=== PATIENT | male | born 1955 | race Two or more races ===

== ENCOUNTER 2024-03-28 15:39 | Inpatient (IN) | payer OTHER, MEDICAID ==
[~2024-03-28] VITALS: Ht 170.2 cm; Wt 75.8 kg
[2024-03-28 17:42] VITALS: BP 111/68; PULSE 83; RESP 18; TEMP 98.1; O2SAT 96
[2024-03-28] MEDS ORDERED: DEXTROSE (50%) 50ML SYRG IV PRN (18:15)
[2024-03-28 18:26] VITALS: BP 111/68; PULSE 83; RESP 18; TEMP 98.1; O2SAT 96
[2024-03-28] MEDS ORDERED: MORPHINE SULFATE INJ 2 MG/ml SYRG IV PRN (18:30)
[2024-03-28] MEDS ORDERED: NITROGLYCERIN 0.4 MG SL TAB SL PRN (18:30)
[2024-03-28 19:59] LABS: Basophils # (auto) 0 10 ^3/uL (0-0.2); Basophils % (auto) 0.3 % (0.0-2.0); Eosinophils # (auto) 0.1 10 ^3/uL (0-0.8); Eosinophils % (auto) 0.7 % (0.0-7.0); Hemoglobin 12.6 g/dL (13.5-17.5); Lymphocytes # (auto) 3.1 10 ^3/uL (0.4-5.4); Lymphocytes % (auto) 26.5 % (10.0-50.0); Mean Corpuscular Hemoglobin 29.7 pg (28.0-32.0); Mean Corpuscular Hgb Conc. 33.1 g/dL (32.0-36.0); Mean Corpuscular Volume 89.6 fL (80.0-100.0); Monocytes # (auto) 0.7 10 ^3/uL (0-1.3); Monocytes % (auto) 5.9 % (0.0-12.0); Neutrophils # (auto) 7.8 10 ^3/uL (1.6-8.6); Neutrophils % (auto) 66.6 % (37.0-80.0); Platelet Count (auto) 310 10^3/uL (140-450); Red Blood Cells 4.24 10^6/uL (4.5-5.90); Red Cell Distribution Width 13.6 % (11.8-14.3); White Blood Cell 11.7 10^3/uL (4.4-10.8)
[2024-03-28 20:00] VITALS: PULSE 86
[2024-03-28 20:14] LABS: Alanine Aminotransferase 26 U/L (7-40); Albumin 4.5 g/dL (3.2-4.8); Alkaline Phosphatase 96 U/L (46-116); Amylase 51 U/L (30-118); Anion Gap 7 (5-15); Aspartate Aminotransferase 23 U/L (13-40); BUN/Creatinine Ratio 28.1 (10.0-20.0); Blood Urea Nitrogen 16 mg/dL (9-23); Calcium 10.1 mg/dL (8.7-10.4); Carbon Dioxide 28 mmol/L (20-31); Chloride 105 mmol/L (98-107); INR 1.06 (0.9-1.15); Lipase 38 U/L (12-53); Partial Thromboplastin Time 28.2 SEC (24.5-34.5); Potassium 3.7 mmol/L (3.5-5.1); Prothrombin Time 11.2 sec (9.3-11.8); Sodium 140 mmol/L (136-145)
[2024-03-28 20:29] LABS: Bilirubin, Total 0.3 mg/dL (0.2-1.0); Glucose 148 mg/dL (74-106)
[2024-03-28 20:50] VITALS: BP 106/66; PULSE 88; RESP 14; TEMP 98.2; O2SAT 93
[2024-03-28] MEDS ORDERED: cefTRIAXone 1GM/50ML D5W 50 ML IV SCH (22:00)
[2024-03-28] MEDS: ACCU-CHEK COMFORT CURVE STRIP VI SCH (22:00)
[2024-03-28] MEDS: ATORVASTATIN 20 MG TAB PO SCH (23:44)
[2024-03-29] VITALS (9 sets, daily range): BP systolic 102–128; BP diastolic 59–82; PULSE 86–125; RESP 16–20; TEMP 98–99.4; O2SAT 95–98
[2024-03-29] MEDS: InsuLIN REG 1unit/0.01ml Soln (100units/ml) SC SCH ×2 (00:14→07:00)
[2024-03-29] MEDS: HYDROmorphone HCL 2 MG/ML VL/or syr IV PRN ×2 (00:28→20:28)
[2024-03-29] MEDS: metroNIDAZOLE 500MG/100ML 100 ML IV SCH (00:34)
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
[2024-03-29] MEDS: cefTRIAXone 2GM/50ML D5W 50 ML IV SCH (01:56)
[2024-03-29 07:09] LABS: Basophils # (auto) 0.1 10 ^3/uL (0-0.2); Basophils % (auto) 0.4 % (0.0-2.0); Eosinophils # (auto) 0.1 10 ^3/uL (0-0.8); Eosinophils % (auto) 0.7 % (0.0-7.0); Hematocrit 37.9 % (41.0-53.0); Hemoglobin 12.8 g/dL (13.5-17.5); Lymphocytes # (auto) 3.1 10 ^3/uL (0.4-5.4); Lymphocytes % (auto) 24.1 % (10.0-50.0); Mean Corpuscular Hgb Conc. 33.6 g/dL (32.0-36.0); Mean Corpuscular Volume 89.2 fL (80.0-100.0); Monocytes # (auto) 0.9 10 ^3/uL (0-1.3); Monocytes % (auto) 6.8 % (0.0-12.0); Neutrophils # (auto) 8.6 10 ^3/uL (1.6-8.6); Nucleated Red Blood Cells % 0.1 %; Platelet Count (auto) 299 10^3/uL (140-450); Red Blood Cells 4.25 10^6/uL (4.5-5.90); Red Cell Distribution Width 13.7 % (11.8-14.3); White Blood Cell 12.7 10^3/uL (4.4-10.8)
[2024-03-29 07:18] LABS: Alanine Aminotransferase 97 U/L (7-40); Albumin 4.4 g/dL (3.2-4.8); Alkaline Phosphatase 191 U/L (46-116); Anion Gap 7 (5-15); Aspartate Aminotransferase 142 U/L (13-40); BUN/Creatinine Ratio 25.4 (10.0-20.0); Bilirubin, Total 0.3 mg/dL (0.2-1.0); Blood Urea Nitrogen 16 mg/dL (9-23); Calcium 9.8 mg/dL (8.7-10.4); Carbon Dioxide 25 mmol/L (20-31); Chloride 107 mmol/L (98-107); Glucose 104 mg/dL (74-106); Magnesium 1.8 mg/dL (1.6-2.6); Phosphorus 3.8 mg/dL (2.4-5.1); Potassium 3.6 mmol/L (3.5-5.1); Sodium 139 mmol/L (136-145); Total Protein 6.8 g/dL (5.7-8.2)
[2024-03-29] MEDS: ASPirin 81 mg TAB PO SCH (09:59)
--- NOTE | 2024-03-29 13:29 | DVH ---
CHEST RADIOGRAPH Indication: ABDOMINAL PAIN Technique: Single frontal view of the chest was obtained COMPARISON: None FINDINGS: Lines and Tubes: None Lungs: Clear Pleura: No effusion. No pneumothorax. Cardiomediastinal contours: Unremarkable Bones: Unremarkable IMPRESSION: 1. No acute disease.
[2024-03-29] MEDS: GASTROGRAFIN 30 ML SOL ONE (14:25)
[2024-03-29] MEDS: IOHEXOL 300 MG/ML 100ML BOTTLE IJ ONE (16:31)
--- NOTE | 2024-03-29 17:51 | DVH ---
Procedure: CT CT ABD PELVIS W CON-ORAL IV 03/29/2024 04:31 PM Indication: ABDOMINAL PAIN Comparison Study: None Technique: Axial images were obtained and reformatted in coronal and sagittal planes. Oral and IV con trast was administered. All CT scans at this medical facility are performed using dose modulation techniques as appropriate t o a performed exam including the following: Automated exposure control was utilized; adjustment of th e MA and/or KV according to patient size; and use of iterative reconstruction technique. CT Dose: CTDI volume is 12.35 mGy. Dose-length product is 621.37 mGy*cm FINDINGS: Lower chest: Left basilar pulmonary opacities likely subsegmental atelectasis. Hepatobiliary: Gallbladder cystostomy tube noted. Small amount of air noted in gallbladder lumen. D iffuse gallbladder wall thickening is seen. Spleen: Unremarkable. Pancreas: Unremarkable. Adrenal Glands: Unremarkable. tract: The kidneys are normal in size bilaterally without hydronephrosis or nephrolithiasis. The urinary bladder is unremarkable. GI tract: The stomach is grossly normal in appearance. No evidence of small bowel obstruction. Oral c ontrast is noted in the lumen of the stomach, small bowel and proximal ascending colon. Moderate fec al retention throughout the large bowel and rectum. Mild circumferential mural thickening of lower r ectal wall trace presacral edema The large bowel is unremarkable. The appendix is normal. Lymphatics: No mesenteric, retroperitoneal or periportal lymphadenopathy. Vasculature: The abdominal aorta is normal in in caliber. Pelvic Organs: Unremarkable. Bones/soft tissues: No acute abnormality. Other: None. IMPRESSION: 1. Diffuse gallbladder wall edema. A percutaneous cystostomy tube is in place. 2. Moderate hypertension large-bowel rectum with findings suggestive of stercoral colitis.
[2024-03-29] MEDS: SODIUM CHLORIDE 0.9% 1,000 ML IV SCH ×2 (19:00→23:16)
[2024-03-29] MEDS: SODIUM CHLORIDE 0.9% 250 ML IV ONE (19:00)
[2024-03-29] MEDS: FLEET ENEMA(ADULT) 135 ML PR ONE (22:19)
--- NOTE | 2024-03-29 22:32 | DVHPN2 ---
Progress Note - Dictate Date Seen: Mar 29, 2024 Has the PT tested + for MRSA If YES, has PT been informed?: No Medical Necessity Reason Pt with a Central, PICC or Fol: No Subjective The patient is currently being evaluated for RUQ abdominal pains * Remains hemodynamically stable and afebrile * CBC reflects leukocytosis * CT abdomen pelvis with oral and IV contrast reflects diffuse edema of gallbladder wall-suggestive of acute cholecystitis * Also noted symptoms of urinary retention and constipation Overnight events are reviewed through medical chart and case discussion with patient's assigned RN while making rounds on patient on the day of service vital signs Vital Sign Date Time Temp Pulse Resp B/P (MAP) Pulse Ox O2 Delivery O2 Flow Rate FiO2 03/29/24 21:00 98.2 125 17 128/69 (88) 95 98.2 03/29/24 08:00 Room Air* 0 21 Total Intake and Output 03/28/24 03/28/24 03/29/24 15:00 23:00 07:00 Intake Total 150 ml Balance 150 ml medications Current Medications Medications Dose Ordered Sig/Aruna Route Start Time Stop Time Status Last Admin Dose Admin Atorvastatin Calcium 40 mg HS PO 03/28/24 22:00 Aspirin 81 mg DAILY PO 03/29/24 10:00 03/29/24 09:59 81 MG Metronidazole 100 ml @ 100 mls/hr Q12HR IV 03/28/24 22:00 03/29/24 10:01 100 MLS/HR Diagnostic Test (Pha) 1 strip ACHS 03/28/24 22:00 03/29/24 16:58 1 STRIP Insulin Human Regular HS SC 03/28/24 22:00 03/29/24 00:14 2 UNITS Insulin Human Regular AC SC 03/29/24 07:00 Dextrose 50 ml UD PRN IV 03/28/24 18:15 Hydromorphone HCl 0.4 mg Q4HPRN PRN IV 03/28/24 18:15 03/29/24 10:18 0.4 MG Hydromorphone HCl 0.8 mg Q4HPRN PRN IV 03/28/24 18:15 03/29/24 20:28 0.8 MG Nitroglycerin 0.4 mg Q5MINP PRN SL 03/28/24 18:30 Morphine Sulfate 2 mg Q30M PRN IV 03/28/24 18:30 Ceftriaxone Sodium/Dextrose 50 ml @ 50 mls/hr DAILY@2100 IV 03/28/24 21:20 03/29/24 20:31 50 MLS/HR Sodium Chloride 1,000 ml @ 150 mls/hr Q6H40M IV 03/29/24 18:15 03/29/24 19:00 150 MLS/HR objective Physical Exam General appearance: Well-developed, well-nourished middle-aged male Awake alert oriented x2 at times confused no respiratory distress Head: Normocephalic nontraumatic Eyes: EOMI, ALIE, sclera nonicteric, conjunctive- pale ENT: No congestion, NSL bilateral symmetrical, oral mucosa dry Neck: Supple, carotid upstroke +2, trachea midline, JVD 2 cm No goiter/stridor, no lymph nodes JVD-3 cm, C spine- Full ROM No use of sternomastoid muscle Chest: Bilateral symmetrical expansions, no costochondral tenderness Lungs: clear breath sounds all over except reduced at bases CVS: PMI-1 cm medial to L MCL in fifth ICS , S1-S2 NSR no S3 GI: Abdomen soft, obese, bowel sounds normoactive RUQ-postsurgical wound clean, draining bile RUQ tenderness, no rebound tenderness No hepatosplenomegaly, no mass no hernia , : No CVA tenderness, no bladder mass palpable, genitalia-NE SKIN: Turgor dry, color pink, no rash, no icterus, No varicosity, no ulcers or wounds EXTs: No edema, color pink, no rash, no ecchymosis distal pulses +2 capillary refill <2 seconds, No open wounds JOINTS; full range of motion BACK: No apparent lumbosacral spinal muscle tenderness, LYMPH NODES: No cervical, axillary or inguinal lymph nodes Neuro: Awake alert oriented 2, coherent, Speech is nonfluent, expressive aphasia Left-sided hemiparesis motor strength three to 4/5 Sensory-changes of DPN, DTR +2, gait-not examined PSYCH: Affect mildly depressed-denies suicidal ideation laboratory and microbiology Laboratory Tests 03/29/24 06:50 Test 03/29/24 06:50 Range/Units Serum Glucose 104 74-106 mg/dL CT abdomen/pelvis with oral and IV contrast IMPRESSION: 1. Diffuse gallbladder wall edema. A percutaneous cystostomy tube is in place. 2. Moderate hypertension large-bowel rectum with findings suggestive of stercoral colitis. Problem List 1. Acute abdominal pain a. Suspect acute cholecystitis Recent history of choledocholithiasis and obstructive jaundice b. Status post percutaneous transhepatic biliary drainage c. " distended gallbladder-possible cholelithiasis 2. Hypovolemia 3. R CVA with left-sided hemiparesis a. R ICA occlusion 4. Fairly well-controlled diabetes and hypertension 2' Diagnosis/Comorbidities Noncompliance with medical recommendations Doppler lower Assessment/Plan Medical decision making The patient remains symptomatic for RUQ abdominal pains -remains hemodynamically stable and afebrile * Received CT abdomen pelvis with oral and IV contrast 1. Diffuse gallbladder wall edema. A percutaneous cystostomy tube is in place. 2. Moderate hypertension large-bowel rectum with findings suggestive of stercoral colitis. Recommended patient to receive empirical IV antibiotics and IV fluids -recommended patient to receive HIDA scan patient has been referred to Dr. Vinnie Marin -patient also had symptoms of urinary retention and constipation which spontaneously improved Treatment Plans Admit patient to medical floor with telemetry Recommended HIDA scan Continue IV antibiotics Awaiting consult from Dr. Vinnie Marin Reviewed results of CBC CMP amylase lipase with patient Reviewed results of CT abdomen pelvis with oral /IV contrast Blood cultures p.r.n. temp 101.5 x3 IV hydration Parenteral analgesics Consider GI consult Reconciled home meds VTE precautions Update patient The patient and and his were well informed by me about 1. Clinical impression, treatment plans, side effects of medications, course of the disease and guarded prognosis 2. All patient's question/ concerns raised by patient are satisfactorily addressed by me Total time spent 45 minutes 40% of time spent interviewing the patient and physical exam 30% of time spent in gathering lab datas and imaging studies 30 % of time is spent in patient education Prognosis fair Plan discussed with: Patient, Spouse Total Time (mins): 45 ALLA STRINGER MD Mar 29, 2024 22:32
[2024-03-30] VITALS (8 sets, daily range): BP systolic 104–146; BP diastolic 68–77; PULSE 79–109; RESP 16–19; TEMP 98.1–98.6; O2SAT 94–98
[2024-03-30 06:58] LABS: Basophils # (auto) 0 10 ^3/uL (0-0.2); Basophils % (auto) 0.3 % (0.0-2.0); Eosinophils # (auto) 0.1 10 ^3/uL (0-0.8); Eosinophils % (auto) 1.1 % (0.0-7.0); Hemoglobin 11.5 g/dL (13.5-17.5); Lymphocytes # (auto) 1.9 10 ^3/uL (0.4-5.4); Lymphocytes % (auto) 16.4 % (10.0-50.0); Mean Corpuscular Hemoglobin 30.1 pg (28.0-32.0); Mean Corpuscular Hgb Conc. 33.8 g/dL (32.0-36.0); Mean Corpuscular Volume 89.2 fL (80.0-100.0); Monocytes # (auto) 0.6 10 ^3/uL (0-1.3); Monocytes % (auto) 5.6 % (0.0-12.0); Neutrophils # (auto) 8.9 10 ^3/uL (1.6-8.6); Neutrophils % (auto) 76.6 % (37.0-80.0); Platelet Count (auto) 280 10^3/uL (140-450); Red Blood Cells 3.81 10^6/uL (4.5-5.90); Red Cell Distribution Width 13.9 % (11.8-14.3); White Blood Cell 11.6 10^3/uL (4.4-10.8)
[2024-03-30 07:19] LABS: Albumin 3.8 g/dL (3.2-4.8); Anion Gap 7 (5-15); BUN/Creatinine Ratio 22.1 (10.0-20.0); Bilirubin, Total 0.4 mg/dL (0.2-1.0); Blood Urea Nitrogen 15 mg/dL (9-23); Calcium 8.7 mg/dL (8.7-10.4); Carbon Dioxide 24 mmol/L (20-31); Glucose 98 mg/dL (74-106); Potassium 4.4 mmol/L (3.5-5.1); Sodium 141 mmol/L (136-145)
[2024-03-30 07:20] LABS: Alanine Aminotransferase 248 U/L (7-40); Alkaline Phosphatase 341 U/L (46-116); Aspartate Aminotransferase 232 U/L (13-40); Chloride 110 mmol/L (98-107); Total Protein 5.9 g/dL (5.7-8.2)
--- NOTE | 2024-03-30 15:57 | DVH ---
Procedure: XY ACUTE AB SERIES Exam Date: 03/30/2024 03:30 PM History: abdominal pain Comparison Study: CT abdomen/ pelvis 03/29/2024 Technique: AP of the chest AP upright of the abdomen AP supine of the abdomen FINDINGS: No focal evidence of airspace disease. The cardiomediastinal silhouette is within normal limits. Percutaneous cholecystostomy tube is in place. Nonobstructive bowel gas pattern noted. Oral contrast material is seen throughout the colon. There is no evidence for pneumoperitoneum. No abnormal calcifi cations noted. Osseous structures are grossly unremarkable. IMPRESSION: 1. Nonobstructive bowel gas pattern. Oral contrast material is in the colon. 2. Percutaneous cholecystostomy tube in place. 3. No evidence of acute cardiopulmonary disease.
[2024-03-30] MEDS: SODIUM CHLORIDE 0.9% 1,000 ML IV SCH (20:15)
--- NOTE | 2024-03-30 22:55 | DVHPN2 ---
Progress Note - Dictate Date Seen: Mar 30, 2024 Has the PT tested + for MRSA If YES, has PT been informed?: No Medical Necessity Reason Pt with a Central, PICC or Fol: No Subjective The patient remains symptomatic for RUQ abdominal pains Remains hemodynamically stable and afebrile * CBC reflects leukocytosis * CT abdomen pelvis with oral and IV contrast reflects diffuse edema of gallbladder wall-suggestive of acute cholecystitis * Awaiting to receive HIDA scan * Reported symptoms of constipation * Three views of abdomen were ordered Overnight events are reviewed through medical chart and case discussion with patient's assigned RN while making rounds on patient on the day of service vital signs Vital Sign Date Time Temp Pulse Resp B/P (MAP) Pulse Ox O2 Delivery O2 Flow Rate FiO2 03/30/24 21:08 97 19 109/68 03/30/24 20:59 98.6 97 98.6 03/30/24 08:00 Room Air* 0 21 Total Intake and Output 03/29/24 03/29/24 03/30/24 15:00 23:00 07:00 Intake Total 1450 ml 1850 ml Output Total 200 ml 1100 ml Balance 1250 ml 750 ml medications Current Medications Medications Dose Ordered Sig/Aruna Route Start Time Stop Time Status Last Admin Dose Admin Atorvastatin Calcium 40 mg HS PO 03/28/24 22:00 Aspirin 81 mg DAILY PO 03/29/24 10:00 03/30/24 09:55 81 MG Metronidazole 100 ml @ 100 mls/hr Q12HR IV 03/28/24 22:00 03/30/24 09:55 100 MLS/HR Diagnostic Test (Pha) 1 strip ACHS 03/28/24 22:00 03/30/24 16:32 1 STRIP Insulin Human Regular HS SC 03/28/24 22:00 03/29/24 22:53 3 UNITS Insulin Human Regular AC SC 03/29/24 07:00 03/30/24 11:52 2 UNITS Dextrose 50 ml UD PRN IV 03/28/24 18:15 Hydromorphone HCl 0.4 mg Q4HPRN PRN IV 03/28/24 18:15 03/30/24 15:28 0.4 MG Hydromorphone HCl 0.8 mg Q4HPRN PRN IV 03/28/24 18:15 03/30/24 21:08 0.8 MG Nitroglycerin 0.4 mg Q5MINP PRN SL 03/28/24 18:30 Ceftriaxone Sodium/Dextrose 50 ml @ 50 mls/hr DAILY@2100 IV 03/28/24 21:20 03/30/24 21:08 50 MLS/HR Sodium Chloride 1,000 ml @ 80 mls/hr [id number] IV 03/30/24 20:15 objective Physical Exam General appearance: Well-developed, well-nourished middle-aged male Awake alert oriented x2 at times confused no respiratory distress Head: Normocephalic nontraumatic Eyes: EOMI, ALIE, sclera nonicteric, conjunctive- pale ENT: No congestion, NSL bilateral symmetrical, oral mucosa dry Neck: Supple, carotid upstroke +2, trachea midline, JVD 2 cm No goiter/stridor, no lymph nodes JVD-3 cm, C spine- Full ROM No use of sternomastoid muscle Chest: Bilateral symmetrical expansions, no costochondral tenderness Lungs: clear breath sounds all over except reduced at bases CVS: PMI-1 cm medial to L MCL in fifth ICS , S1-S2 NSR no S3 GI: Abdomen soft, obese, bowel sounds normoactive RUQ-postsurgical wound clean, draining bile RUQ tenderness, no rebound tenderness No hepatosplenomegaly, no mass no hernia , : No CVA tenderness, no bladder mass palpable, genitalia-NE SKIN: Turgor dry, color pink, no rash, no icterus, No varicosity, no ulcers or wounds EXTs: No edema, color pink, no rash, no ecchymosis distal pulses +2 capillary refill <2 seconds, No open wounds JOINTS; full range of motion BACK: No apparent lumbosacral spinal muscle tenderness, LYMPH NODES: No cervical, axillary or inguinal lymph nodes Neuro: Awake alert oriented 2, coherent, Speech is nonfluent, expressive aphasia Left-sided hemiparesis motor strength three to 4/5 Sensory-changes of DPN, DTR +2, gait-not examined PSYCH: Affect mildly depressed-denies suicidal ideation laboratory and microbiology Laboratory Tests 03/30/24 06:37 Test 03/30/24 06:37 Range/Units Serum Glucose 98 74-106 mg/dL 3 views of Abdomen IMPRESSION: 1. Nonobstructive bowel gas pattern. Oral contrast material is in the colon. 2. Percutaneous cholecystostomy tube in place. 3. No evidence of acute cardiopulmonary disease. Problem List 1. Acute abdominal pain a. Suspect acute cholecystitis Recent history of choledocholithiasis and obstructive jaundice b. Status post percutaneous transhepatic biliary drainage c. " distended gallbladder-possible cholelithiasis 2. Hypovolemia 3. R CVA with left-sided hemiparesis a. R ICA occlusion 4. Fairly well-controlled diabetes and hypertension 2' Diagnosis/Comorbidities Noncompliance with medical recommendations Doppler lower Assessment/Plan Medical decision making The patient remains symptomatic for RUQ abdominal pains -remains hemodynamically stable and afebrile * Received CT abdomen pelvis with oral and IV contrast 1. Diffuse gallbladder wall edema. A percutaneous cystostomy tube is in place. 2. Moderate hypertension large-bowel rectum with findings suggestive of stercoral colitis. -continued patient on empirical IV antibiotics and IV fluids - awaiting to receive HIDA scan -Awaiting surgical consult from Dr. Vinnie Marin -patient also had symptoms of urinary retention and constipation which spontaneously improved last evening -three views of abdomen-unremarkable for bowel obstruction Treatment Plans Continue patient's hospital stay at telemetry Awaiting to receive HIDA scan Continue IV antibiotics Awaiting consult from Dr. Vinnie Marin Reviewed results of CBC CMP amylase lipase with patient Reviewed results of CT abdomen pelvis with oral /IV contrast Blood cultures p.r.n. temp 101.5 x3 IV hydration Parenteral analgesics Consider GI consult Reconciled home meds VTE precautions Update patient The patient and and his were well informed by me about 1. Clinical impression, treatment plans, side effects of medications, course of the disease and guarded prognosis 2. All patient's question/ concerns raised by patient are satisfactorily addressed by me Total time spent 45 minutes 40% of time spent interviewing the patient and physical exam 30% of time spent in gathering lab datas and imaging studies 30 % of time is spent in patient education Plan discussed with: Spouse Total Time (mins): 45 ALLA STRINGER MD Mar 30, 2024 22:55
[2024-03-31] VITALS (9 sets, daily range): BP systolic 102–129; BP diastolic 55–78; PULSE 78–104; RESP 16–20; TEMP 98.3–99.4; O2SAT 95–99
[2024-03-31] MEDS: HYDROmorphone HCL 2 MG/ML VL/or syr IV PRN ×2 (01:50→23:21)
[2024-03-31] MEDS: MORPHINE SULFATE INJ 2 MG/ml SYRG IV ONE (11:56)
--- NOTE | 2024-03-31 14:50 | DVH ---
EXAM: NM NM HIDA SCAN History: Acute cholecystitis Comparison Study: None TECHNIQUE: Following intravenous administration of 4.2 mCi of Tc-99m mebrofenin (Choletec), dynamic sequential images of the right upper abdomen were acquired for 60 minutes. An additional planar image in the lateral right upper quadrant was also obtained. After the intravenous administration of 2 mg of morphine sulfate, additional dynamic images were acqu ired for 35 minutes. FINDINGS: The liver demonstrates prompt radiotracer uptake with clearance from blood pool. No focal perfusion d efects were noted. There was prompt excretion of the radiotracer into the biliary tree, without evide nce of biliary dilatation or obstruction. Following administration of morphine, there was no filling of the gallbladder. IMPRESSION: 1. Nonvisualized gallbladder, consistent with acute cholecystitis.
--- NOTE | 2024-03-31 16:50 | DVH ---
[id number] MRI MRCP MRI Attending Name: ALLA STRINGER COMPARISON: None INDICATION: R/O Choledocolithiasis TECHNIQUE: MRCP was performed without the use of intravenous contrast using a MRI imaging system. Three-dimensional MRCP was performed using maximum intensity projection reconstruction on an [facility] ent workstation under concurrent supervision. FINDINGS: Visualized lower thorax: Limited imaging of the thorax demonstrates no suspicious pleural or parenchy mal disease. Liver: Normal in morphology and signal intensity. Gallbladder: Gallbladder is not well seen on this exam most likely due to the presence of multiple st ones. The gallbladder wall appears thickened Biliary system: There is no intrahepatic or extrahepatic bile duct dilatation. No filling defect to s uggest choledocholithiasis. Spleen: Normal in morphology and signal intensity. Pancreas: Normal in morphology and signal intensity. Adrenal glands: Normal in morphology and signal intensity. Kidneys: The kidneys are symmetric in size and appearance. No hydronephrosis. Urinary tract: The included ureters, as visualized, are normal in course and caliber. GI tract: The included portions of the bowel are within normal limits. Lymph nodes: No enlarged lymph nodes. Peritoneum: No ascites. Musculoskeletal: The bone marrow signal intensity is within normal limits. IMPRESSION: 1. No intra or extra hepatic biliary ductal dilatation. No MRI evidence of choledocholithiasis. 2. Cholelithiasis with gallbladder wall thickening suggesting acute cholecystitis
--- NOTE | 2024-03-31 17:26 | DVH ---
Ultrasound abdomen INDICATION: ruq pain Technique: 2-D real-time ultrasound was performed with axial and sagittal images submitted for evalu ation. FINDINGS: Liver normal in size measuring 14.6 cm without mass. Multiple gallstones. Gallbladder not well seen. Negative sonographic ureña's sign. Common duct slightly enlarged measuring 8 mm No stone seen in the common duct Right kidney 9.2 cm in length without mass stone or hydronephrosis IMPRESSION: 1. Cholelithiasis.
--- NOTE | 2024-03-31 20:53 | DVHINCON2 ---
Date of service: Mar 30, 2024 Allergies: Coded Allergies: NO KNOWN ALLERGIES (Unverified , 03/28/24) Current Medications Current Medications Medications (Trade) Dose Ordered Sig/Aruna Route PRN Reason Start Time Stop Time Status Last Admin Hydromorphone HCl (Dilaudid Injection) 0.4 mg Q4HPRN PRN IV MODERATE PAIN (4-6 PAIN SCALE) 03/30/24 23:00 Hydromorphone HCl (Dilaudid Injection) 0.6 mg Q4HPRN PRN IV SEVERE PAIN (7-10 PAIN SCALE) 03/30/24 23:00 03/31/24 01:50 Vital Signs Vital Signs Date Time Temp Pulse Resp B/P (MAP) Pulse Ox O2 Delivery O2 Flow Rate FiO2 03/31/24 17:00 99.0 84 20 106/76 (86) 97 99.0 03/31/24 08:20 Room Air* 0 21 Labs/Diagnostic Data Labs Test 03/31/24 05:55 03/30/24 06:37 03/29/24 06:50 03/28/24 19:09 Range/Units POC Glucose 97 70-106 mg/dl White Blood Count 11.6 H 4.4-10.8 10^3/uL Red Blood Count 3.81 L 4.5-5.90 10^6/uL Hemoglobin 11.5 L 13.5-17.5 g/dL Hematocrit 34.0 #L 41.0-53.0 % Mean Corpuscular Volume 89.2 80.0-100.0 fL Mean Corpuscular Hemoglobin 30.1 28.0-32.0 pg Mean Corpuscular Hemoglobin Concent 33.8 32.0-36.0 g/dL Red Cell Distribution Width 13.9 11.8-14.3 % Platelet Count 280 140-450 10^3/uL Mean Platelet Volume 6.7 L 6.9-10.8 fL Neutrophils (%) (Auto) 76.6 37.0-80.0 % Lymphocytes (%) (Auto) 16.4 10.0-50.0 % Monocytes (%) (Auto) 5.6 0.0-12.0 % Eosinophils (%) (Auto) 1.1 0.0-7.0 % Basophils (%) (Auto) 0.3 0.0-2.0 % Neutrophils # (Auto) 8.9 H 1.6-8.6 10 ^3/uL Lymphocytes # (Auto) 1.9 0.4-5.4 10 ^3/uL Monocytes # (Auto) 0.6 0-1.3 10 ^3/uL Eosinophils # (Auto) 0.1 0-0.8 10 ^3/uL Basophils # (Auto) 0 0-0.2 10 ^3/uL Nucleated Red Blood Cells 0.0 % Sodium Level 141 136-145 mmol/L Potassium Level 4.4 3.5-5.1 mmol/L Chloride Level 110 H 98-107 mmol/L Carbon Dioxide Level 24 20-31 mmol/L Anion Gap 7 5-15 Blood Urea Nitrogen 15 9-23 mg/dL Creatinine 0.68 L 0.700-1.30 mg/dL Glomerular Filtration Rate Calc 103 >90 mL/min BUN/Creatinine Ratio 22.1 H 10.0-20.0 Serum Glucose 98 74-106 mg/dL Calcium Level 8.7 8.7-10.4 mg/dL Total Bilirubin 0.4 0.2-1.0 mg/dL Aspartate Amino Transferase (AST) 232 H 13-40 U/L Alanine Aminotransferase (ALT) 248 H 7-40 U/L Alkaline Phosphatase 341 H 46-116 U/L Total Protein 5.9 5.7-8.2 g/dL Albumin 3.8 3.2-4.8 g/dL Phosphorus Level 3.8 2.4-5.1 mg/dL Magnesium Level 1.8 1.6-2.6 mg/dL Prothrombin Time 11.2 9.3-11.8 sec Prothrombin Time INR 1.06 0.9-1.15 Activated Partial Thromboplast Time 28.2 24.5-34.5 SEC Amylase Level 51 30-118 U/L Lipase 38 12-53 U/L Microbiology Date/Time Source Procedure Growth Status 03/28/24 21:20 Nose MRSA Screen - Final Complete Assessment [id number] R/O AC CHOLECYSTITIS PERCUTANEOUS BILIARY DRAIN IN PLACE DONE AT ANOTHER FACILITY HIGH RISK FOR SURGERY CARDIAC CLEARANCE WILL SIGN OUT TO DR HUSSEIN Plan discussed with: Other RENITA NELSON MD Mar 31, 2024 20:53
--- NOTE | 2024-03-31 21:49 | DVHINCON2 ---
DATE OF CONSULTATION: 03/30/2024 HISTORY OF PRESENT ILLNESS: This patient was referred to me by Dr. Greenwood and was originally a consult with Dr. Marin, but I was covering and I came to see him. The patient is unable to give adequate history. Most of the information obtained from the chart. This is 68 years old, coming in with right CVA, left hemiparesis, uncontrolled diabetes complicated by TPN and noncompliance with medical treatment plans and came to Dr. Ignacio Barroso's office and On License Of [facility] [place]. He recently had a history of obstructive jaundice, for which he went to [facility] and was diagnosed with distended gallbladder and choledocholithiasis. He was given a percutaneous transhepatic biliary drainage and details are not clear. Currently, no nausea, vomiting. No fever or chills. PAST MEDICAL HISTORY: History of hypertension, history of CAD, was recommended CABG, paroxysmal atrial fibrillation and the patient is on Eliquis. PAST SURGICAL HISTORY: As mentioned above. PHYSICAL EXAMINATION: VITAL SIGNS: Afebrile, stable signs. HEENT: With no evidence of pallor, cyanosis, or jaundice. NECK: Supple, nontender with no thyromegaly, lymphadenopathy. CHEST AND LUNGS: Clear. HEART: Within normal limits. ABDOMEN: Soft. He has a drainage tube in place in the right upper abdomen. NEUROLOGIC: Not assessed. EXTREMITIES: Unremarkable. CLINICAL IMPRESSION: Rule out acute cholecystitis, need more information from his previous surgical intervention at the other facility and we will consider surgery based upon ongoing evaluation and have Dr. Marin evaluate him as well, as he has been consulted as well. MD STONEY Obrien/ROSA TID: [id number] RECEIPT: [id number] cc: Ignacio Barroso MD
--- NOTE | 2024-03-31 22:13 | DVHPN2 ---
Progress Note - Dictate Date Seen: Mar 31, 2024 Has the PT tested + for MRSA If YES, has PT been informed?: No Medical Necessity Reason Pt with a Central, PICC or Fol: No Medical Necessity Reason MRCP exam HIDA scan IV antibiotics Parenteral analgesics General surgery consult from Dr. Leticia Henley covering Dr. Nunez Subjective The patient remains symptomatic for RUQ abdominal pains from acute cholecystitis Documented thru MRCP, CT abdomen exam as well as HIDA scan Remains hemodynamically stable and afebrile * Patient is followed by Dr. Leticia Henley who requested hold medical records * A medical record release request has been sent to [facility] * The patient was referred to Dr. Adriel Mcarthur for Cardiology clearance Overnight events are reviewed through medical chart and case discussion with patient's assigned RN while making rounds on patient on the day of service vital signs Vital Sign Date Time Temp Pulse Resp B/P (MAP) Pulse Ox O2 Delivery O2 Flow Rate FiO2 03/31/24 21:00 99.4 93 20 102/61 (75) 98 99.4 03/31/24 08:20 Room Air* 0 21 Total Intake and Output 03/30/24 03/30/24 03/31/24 15:00 23:00 07:00 Intake Total 100 ml 1770 ml 100 ml Output Total 1800 ml 600 ml Balance 100 ml -30 ml -500 ml medications Current Medications Medications Dose Ordered Sig/Aruna Route Start Time Stop Time Status Last Admin Dose Admin Atorvastatin Calcium 40 mg HS PO 03/28/24 22:00 Aspirin 81 mg DAILY PO 03/29/24 10:00 03/31/24 13:22 81 MG Metronidazole 100 ml @ 100 mls/hr Q12HR IV 03/28/24 22:00 03/31/24 13:22 100 MLS/HR Diagnostic Test (Pha) 1 strip ACHS 03/28/24 22:00 03/31/24 07:09 1 STRIP Insulin Human Regular HS SC 03/28/24 22:00 03/29/24 22:53 3 UNITS Insulin Human Regular AC SC 03/29/24 07:00 03/30/24 11:52 2 UNITS Dextrose 50 ml UD PRN IV 03/28/24 18:15 Nitroglycerin 0.4 mg Q5MINP PRN SL 03/28/24 18:30 Ceftriaxone Sodium/Dextrose 50 ml @ 50 mls/hr DAILY@2100 IV 03/28/24 21:20 03/31/24 21:29 50 MLS/HR Sodium Chloride 1,000 ml @ 80 mls/hr [id number] IV 03/30/24 20:15 03/31/24 08:18 80 MLS/HR Hydromorphone HCl 0.4 mg Q4HPRN PRN IV 03/30/24 23:00 Hydromorphone HCl 0.6 mg Q4HPRN PRN IV 03/30/24 23:00 03/31/24 01:50 0.6 MG objective Physical Exam General appearance: Well-developed, well-nourished middle-aged male Awake alert oriented x 2 at times confused no respiratory distress Head: Normocephalic nontraumatic Eyes: EOMI, ALIE, sclera nonicteric, conjunctive- pale ENT: No congestion, NSL bilateral symmetrical, oral mucosa dry Neck: Supple, carotid upstroke +2, trachea midline, JVD 2 cm No goiter/stridor, no lymph nodes JVD-3 cm, C spine- Full ROM No use of sternomastoid muscle Chest: Bilateral symmetrical expansions, no costochondral tenderness Lungs: clear breath sounds all over except reduced at bases CVS: PMI-1 cm medial to L MCL in fifth ICS , S1-S2 NSR no S3 GI: Abdomen soft, obese, bowel sounds normoactive RUQ-postsurgical wound clean, draining bile RUQ tenderness, no rebound tenderness No hepatosplenomegaly, no mass no hernia , : No CVA tenderness, no bladder mass palpable, genitalia-NE SKIN: Turgor dry, color pink, no rash, no icterus, No varicosity, no ulcers or wounds EXTs: No edema, color pink, no rash, no ecchymosis distal pulses +2 capillary refill <2 seconds, No open wounds JOINTS; full range of motion BACK: No apparent lumbosacral spinal muscle tenderness, LYMPH NODES: No cervical, axillary or inguinal lymph nodes Neuro: Awake alert oriented 2, coherent, Speech is nonfluent, expressive aphasia Left-sided hemiparesis motor strength three to 4/5 Sensory-changes of DPN, DTR +2, gait-not examined PSYCH: Affect mildly depressed-denies suicidal ideation laboratory and microbiology Laboratory Tests 03/30/24 06:37 Test 2/9/25 06:37 Range/Units Serum Glucose 98 74-106 mg/dL ORDERING PHYSICIAN: LAMAR CHOE NP PROCEDURE(s): MRCP - MRCP MRI REASON: R/O Choledocolithiasis ORDER NUMBER(s): [id number], ACCESSION NUMBER(s): [id number] MRI MRCP MRI Attending Name: ALLA BARROSO COMPARISON: None INDICATION: R/O Choledocolithiasis FINDINGS: Visualized lower thorax: Limited imaging of the thorax demonstrates no suspicious pleural or parenchymal disease. Liver: Normal in morphology and signal intensity. Gallbladder: Gallbladder is not well seen on this exam most likely due to the presence of multiple stones. The gallbladder wall appears thickened Biliary system: There is no intrahepatic or extrahepatic bile duct dilatation. No filling defect to suggest choledocholithiasis. Spleen: Normal in morphology and signal intensity. Pancreas: Normal in morphology and signal intensity. Adrenal glands: Normal in morphology and signal intensity. Kidneys: The kidneys are symmetric in size and appearance. No hydronephrosis. Urinary tract: The included ureters, as visualized, are normal in course and caliber. GI tract: The included portions of the bowel are within normal limits. Lymph nodes: No enlarged lymph nodes. Peritoneum: No ascites. Musculoskeletal: The bone marrow signal intensity is within normal limits. IMPRESSION: 1. No intra or extra hepatic biliary ductal dilatation. No MRI evidence of choledocholithiasis. 2. Cholelithiasis with gallbladder wall thickening suggesting acute cholecystitis ATED BY: TIMI MENDOZA MD DICTATED DATE/TIME: 03/31/241646 SIGNED BY: TIMI MENDOZA MD SIGNED DATE/TIME: 03/31/241646 ORDERING PHYSICIAN: ALLA BARROSO MD PROCEDURE(s): GBNM - NM HIDA SCAN REASON: Acute cholecystitis ORDER NUMBER(s): [id number], ACCESSION NUMBER(s): [id number] EXAM: NM NM HIDA SCAN History: Acute cholecystitis Comparison Study: None TECHNIQUE: Following intravenous administration of 4.2 mCi of Tc-99m mebrofenin (Choletec), dynamic sequential images of the right upper abdomen were acquired for 60 minutes. An additional planar image in the lateral right upper quadrant was also obtained. After the intravenous administration of 2 mg of morphine sulfate, additional dynamic images were acquired for 35 minutes. FINDINGS: The liver demonstrates prompt radiotracer uptake with clearance from blood pool. No focal perfusion defects were noted. There was prompt excretion of the radiotracer into the biliary tree, without evidence of biliary dilatation or obstruction. Following administration of morphine, there was no filling of the gallbladder. IMPRESSION: 1. Nonvisualized gallbladder, consistent with acute cholecystitis. Problem List 1. Acute RUQ abdominal pains a. Acute cholecystitis Recent history of choledocholithiasis and obstructive jaundice b. Status post percutaneous transhepatic biliary drainage c. " distended gallbladder-possible cholelithiasis 2. Hypovolemia...................................................... Corrected 3. R CVA with left-sided hemiparesis a. R ICA occlusion 4. Fairly well-controlled diabetes and hypertension 2' Diagnosis/Comorbidities Noncompliance with medical recommendations Doppler lower Assessment/Plan Medical decision making The patient remains symptomatic for RUQ abdominal pains due to acute cholecystitis -remains hemodynamically stable and afebrile * Received MRCP which ruled out intra and extrahepatic bile duct dilatation Remarkable for cholelithiasis with gallbladder wall thickening Suggestive of acute cholecystitis * Received HIDA scan which concludes Nonvisualization of gallbladder acute cholecystitis * Patient had CT abdomen/pelvis with contrast -similar findings of gallbladder wall edema from acute cholecystitis * Continued patient on IV antibiotics and IV hydration * Patient has been seen by Dr. Leticia Henley covering Dr. Vinnie Marin He requested medical records from [facility] where patient had received percutaneous transhepatic biliary drainage He opines patient requested receive surgery provided cardiac clear * Patient is referred to Dr. Mcarthur for Cardiology * Patient is referred to Dr. Raul Barroso for Infectious Disease consultation Treatment Plans Continue patient's hospital stay at telemetry Order preop labs Ordered 2D echo Refer patient to Dr. Adriel Mcarthur for Cardiology clearance Refer patient Dr. Raul Barroso for Infectious Disease consult Continue IV Rocephin and Flagyl Reviewed input of Dr. Leticia Henley-case discussed with him Requests medical records from [facility] Blood cultures p.r.n. temp 101.5 x3 Continue IV hydration Parenteral analgesics Consider GI consult Reconciled home meds VTE precautions Update patient The patient and and his were well informed by me about 1. Clinical impression, treatment plans, side effects of medications, course of the disease and guarded prognosis 2. All patient's question/ concerns raised by patient are satisfactorily addressed by me Total time spent 45 minutes 40% of time spent interviewing the patient and physical exam 30% of time spent in gathering lab datas and imaging studies 30 % of time is spent in patient education Prognosis Fair Plan discussed with: Patient, Spouse Total Time (mins): 45 ALLA BARROSO MD Mar 31, 2024 22:13
--- NOTE | 2024-03-31 22:19 | DVHINCON2 ---
"Date of service: Mar 31, 2024 Allergies: Coded Allergies: NO KNOWN ALLERGIES (Unverified , 03/28/24) Current Medications Current Medications Medications (Trade) Dose Ordered Sig/Aruna Route PRN Reason Start Time Stop Time Status Last Admin Hydromorphone HCl (Dilaudid Injection) 0.4 mg Q4HPRN PRN IV MODERATE PAIN (4-6 PAIN SCALE) 03/30/24 23:00 Hydromorphone HCl (Dilaudid Injection) 0.6 mg Q4HPRN PRN IV SEVERE PAIN (7-10 PAIN SCALE) 03/30/24 23:00 03/31/24 01:50 Vital Signs Vital Signs Date Time Temp Pulse Resp B/P (MAP) Pulse Ox O2 Delivery O2 Flow Rate FiO2 03/31/24 21:00 99.4 93 20 102/61 (75) 98 99.4 03/31/24 08:20 Room Air* 0 21 Labs/Diagnostic Data Labs Test 03/31/24 05:55 03/30/24 06:37 03/29/24 06:50 03/28/24 19:09 Range/Units POC Glucose 97 70-106 mg/dl White Blood Count 11.6 H 4.4-10.8 10^3/uL Red Blood Count 3.81 L 4.5-5.90 10^6/uL Hemoglobin 11.5 L 13.5-17.5 g/dL Hematocrit 34.0 #L 41.0-53.0 % Mean Corpuscular Volume 89.2 80.0-100.0 fL Mean Corpuscular Hemoglobin 30.1 28.0-32.0 pg Mean Corpuscular Hemoglobin Concent 33.8 32.0-36.0 g/dL Red Cell Distribution Width 13.9 11.8-14.3 % Platelet Count 280 140-450 10^3/uL Mean Platelet Volume 6.7 L 6.9-10.8 fL Neutrophils (%) (Auto) 76.6 37.0-80.0 % Lymphocytes (%) (Auto) 16.4 10.0-50.0 % Monocytes (%) (Auto) 5.6 0.0-12.0 % Eosinophils (%) (Auto) 1.1 0.0-7.0 % Basophils (%) (Auto) 0.3 0.0-2.0 % Neutrophils # (Auto) 8.9 H 1.6-8.6 10 ^3/uL Lymphocytes # (Auto) 1.9 0.4-5.4 10 ^3/uL Monocytes # (Auto) 0.6 0-1.3 10 ^3/uL Eosinophils # (Auto) 0.1 0-0.8 10 ^3/uL Basophils # (Auto) 0 0-0.2 10 ^3/uL Nucleated Red Blood Cells 0.0 % Sodium Level 141 136-145 mmol/L Potassium Level 4.4 3.5-5.1 mmol/L Chloride Level 110 H 98-107 mmol/L Carbon Dioxide Level 24 20-31 mmol/L Anion Gap 7 5-15 Blood Urea Nitrogen 15 9-23 mg/dL Creatinine 0.68 L 0.700-1.30 mg/dL Glomerular Filtration Rate Calc 103 >90 mL/min BUN/Creatinine Ratio 22.1 H 10.0-20.0 Serum Glucose 98 74-106 mg/dL Calcium Level 8.7 8.7-10.4 mg/dL Total Bilirubin 0.4 0.2-1.0 mg/dL Aspartate Amino Transferase (AST) 232 H 13-40 U/L Alanine Aminotransferase (ALT) 248 H 7-40 U/L Alkaline Phosphatase 341 H 46-116 U/L Total Protein 5.9 5.7-8.2 g/dL Albumin 3.8 3.2-4.8 g/dL Phosphorus Level 3.8 2.4-5.1 mg/dL Magnesium Level 1.8 1.6-2.6 mg/dL Prothrombin Time 11.2 9.3-11.8 sec Prothrombin Time INR 1.06 0.9-1.15 Activated Partial Thromboplast Time 28.2 24.5-34.5 SEC Amylase Level 51 30-118 U/L Lipase 38 12-53 U/L Microbiology Date/Time Source Procedure Growth Status 03/28/24 21:20 Nose MRSA Screen - Final Complete Problems(with codes): (1) Sepsis (2) Acute cholecystitis (3) Hypotension (4) Diabetes (5) Abdominal pain Plan/Recommendation ASSESSMENT AND PLAN: ID Problem List: - Cerebrovascular accident with left hand paresis - Bed confined - Uncontrolled diabetes mellitus - Hypercholesterolemia - Hypertension - Paroxysmal atrial fibrillation - Cholelithiasis - Cholecystitis - Recent right MCA stroke with mid-cervical occlusion of right ICA - Necrotic infections of bilateral feet, status post multiple debridements Assessment This is a 68 y.o. male with a past medical history of cerebrovascular accident with left hand paresis, uncontrolled diabetes mellitus, hypercholesterolemia, hypertension, paroxysmal atrial fibrillation on Eliquis, recent right MCA stroke with mid-cervical occlusion of the right internal carotid artery, and status post coronary artery bypass graft several years ago, who presents with right upper quadrant pain, obstructive jaundice, and failure to thrive. The patient has been experiencing intermittent right upper quadrant pain and obstructive jaundice. He previously underwent percutaneous transhepatic biliary drainage at [facility] several weeks ago (records pending). Currently, he exhibits poor appetite, significant weight loss, and signs of acute cholecystitis. Vital signs are notable for fever (Tmax 101.5F) and tachycardia. Physical examination reveals right upper quadrant tenderness with guarding, mildly distended abdomen, rash, and open, non-draining foot wounds status post multiple debridements. Laboratory studies show leukocytosis (WBC 11.7 K/L) and elevated creatinine (1.56 mg/dL). Imaging studies are consistent with acute cholecystitis and stercoral colitis. Plan: - Continue ceftriaxone and azithromycin empirically. - Patient is scheduled for urgent laparoscopic cholecystectomy. - Agree with this plan. - Ensure any necrotic specimens or infected inflammatory tissue are cultured and sent to pathology. - Monitor vital signs and laboratory markers closely. - Assess and manage foot wounds; consider obtaining cultures if signs of infection are present. - Obtain previous medical records from [facility]. - Maintain hydration and electrolyte balance. - Manage blood glucose levels to optimize glycemic control. - Continue home medications: atorvastatin, aspirin, and Eliquis. Isolation Precautions: Standard Assessment and plan were discussed with the patient as written above. Plan is subject to change pending incorporation of new incoming information/diagnostics. Updates may be added as an addendum at the bottom (OR TOP) of this note. Thank you for the interesting consult. ID will continue to follow. Please contact Infectious Disease for any questions or concerns. Trent Barroso M.D. [facility] Ph: ? History: The patient's chart and medications were reviewed in detail, and the patient was seen and examined. History obtained from: Patient Diego Corcoran is a 68 y.o. male with a past medical history of cerebrovascular accident with left hand paresis, uncontrolled diabetes mellitus, hypercholesterolemia, hypertension, paroxysmal atrial fibrillation on Eliquis, recent right MCA stroke with mid-cervical occlusion of the right internal carotid artery, and status post coronary artery bypass graft several years ago. He presents with right upper quadrant pain, obstructive jaundice, and failure to thrive. The patient has been experiencing intermittent right upper quadrant pain and obstructive jaundice. He was previously hospitalized at [facility] and noted to have a distended gallbladder and cholelithiasis. He underwent a percutaneous transhepatic biliary drainage procedure several weeks ago (medical records are pending). The patient reports poor appetite and significant weight loss. Review of Systems: A complete 10-system review of systems was completed and negative except as noted in the HPI or here. - CONSTITUTIONAL: Reports poor appetite and significant weight loss. Denies fever and chills. - HEENT: Denies changes in vision and hearing. - RESPIRATORY: Denies shortness of breath and cough. - CV: Denies chest pain and palpitations. - GI: Reports intermittent right upper quadrant pain. Denies nausea, vomiting, and diarrhea. - : Denies dysuria and urinary frequency. - MSK: Denies myalgia and joint pain. - SKIN: Reports rash. Notes open foot wounds. - NEUROLOGICAL: Denies headache and syncope. - PSYCHIATRIC: Denies recent changes in mood, anxiety, or depression. Past Medical History: | Diagnosis | |-| | - Cerebrovascular accident with left hand paresis | | - Recent right MCA stroke with mid-cervical occlusion of right ICA | | - Uncontrolled diabetes mellitus | | - Hypercholesterolemia | | - Hypertension | | - Paroxysmal atrial fibrillation | | - Cholelithiasis | | - Cholecystitis | Past Surgical History: - Coronary artery bypass graft (several years ago) - Percutaneous transhepatic biliary drainage (several weeks ago at [facility]) Home Medications: | Medication | Sig | |-|-| | Aspirin 81 mg tablet | Take 1 tablet by mouth daily. | | Atorvastatin 40 mg tablet | Take 1 tablet by mouth daily. | | Eliquis (Apixaban) 5 mg tablet | Take 1 tablet by mouth twice daily. | Allergies: - No known allergies Family History: - Family history not available. Social History: - Socioeconomic History: - Marital status: Not provided - Number of children: Not provided - Occupational History: - Not provided - Tobacco Use: - Never smoker - Alcohol Use: - Denies alcohol use - Drug Use: - Denies illicit drug use - Sexual Activity: - Not provided - Other Topics Concern: - Not provided Objective: Vital Signs on Arrival: - Temp: 98.2 F - BP: 106/66 mmHg - Pulse: 88 bpm - Resp: 16 breaths per minute - SpO2: 93% on room air Most Recent Vital Signs: - Temp: 101.5 F - BP: Not provided - Pulse: Not provided - Resp: Not provided - SpO2: Not provided Admission Weight: - Not provided Physical Exam: - General: NAD - Neck: Supple. No masses. - HEENT: PERRL. Normal lids and conjunctiva. Moist mucous membranes. Oropharynx without lesions, exudates, or excessive erythema. Normal appearance of the external aspects of the nose and ears. - Heart: Regular rhythm, normal rate. No murmur. No lower extremity edema. - Lungs: Normal respiratory effort. Clear to auscultation bilaterally. No wheezes. No crackles. - Abdomen: Mildly distended. Tenderness in the right upper quadrant with guarding. No masses or abdominal hernia. - MSK: No digital cyanosis. Open, non-draining foot wounds status post multiple debridements. Normal strength and tone in all 4 limbs. - Skin: Warm and dry. Rash noted. - Neuro: Alert. No facial droop or slurred speech. Extraocular movements intact. Sensation intact to soft touch in all 4 limbs. - Psych: Appropriate mood. Full affect. Oriented to person, place, time, and situation. Diagnostic Studies: Available diagnostic studies were reviewed personally. Significant relevant results and findings are outlined below or addressed in the Assessment and Plan above. Pertinent Imaging: - CT Abdomen and Pelvis: - Impression: - 1. Diffuse gallbladder wall edema. - 2. Percutaneous nephrostomy tube in place. - 3. Moderate distension of the lower bowel with findings suggestive of stercoral colitis. - Gallbladder Ultrasound: - Impression: - Non-visualization of the gallbladder consistent with acute cholecystitis. - Chest X-ray: - Impression: - No acute disease. Laboratory Data: - WBC: 11.7 K/L (Elevated) - Hemoglobin: 12.6 g/dL - Platelet Count: 310 K/L - BUN: 16 mg/dL - Creatinine: 1.56 mg/dL (Elevated) - Temperature in ED: 101.5 F Plan discussed with: Patient TRENT BARROSO MD Mar 31, 2024 22:19"
[2024-04-01] VITALS (9 sets, daily range): BP systolic 97–137; BP diastolic 56–75; PULSE 77–98; RESP 17–21; TEMP 98.4–98.8; O2SAT 96–99
[2024-04-01 07:58] LABS: INR 1.12 (0.9-1.15); Partial Thromboplastin Time 28.9 SEC (24.5-34.5); Prothrombin Time 11.7 sec (9.3-11.8)
[2024-04-01 08:00] LABS: Basophils # (auto) 0.1 10 ^3/uL (0-0.2); Basophils % (auto) 0.6 % (0.0-2.0); Eosinophils # (auto) 0.2 10 ^3/uL (0-0.8); Eosinophils % (auto) 1.6 % (0.0-7.0); Hematocrit 34.5 % (41.0-53.0); Hemoglobin 11.6 g/dL (13.5-17.5); Lymphocytes # (auto) 2.8 10 ^3/uL (0.4-5.4); Lymphocytes % (auto) 26.5 % (10.0-50.0); Mean Corpuscular Hemoglobin 30.1 pg (28.0-32.0); Mean Corpuscular Hgb Conc. 33.4 g/dL (32.0-36.0); Mean Corpuscular Volume 89.9 fL (80.0-100.0); Monocytes # (auto) 0.7 10 ^3/uL (0-1.3); Monocytes % (auto) 6.6 % (0.0-12.0); Neutrophils # (auto) 6.7 10 ^3/uL (1.6-8.6); Neutrophils % (auto) 64.7 % (37.0-80.0); Platelet Count (auto) 303 10^3/uL (140-450); Red Blood Cells 3.84 10^6/uL (4.5-5.90); Red Cell Distribution Width 13.9 % (11.8-14.3); White Blood Cell 10.4 10^3/uL (4.4-10.8)
[2024-04-01 08:43] LABS: Anion Gap 10 (5-15); Calcium 9.7 mg/dL (8.7-10.4); Carbon Dioxide 24 mmol/L (20-31); Potassium 3.9 mmol/L (3.5-5.1); Sodium 141 mmol/L (136-145)
[2024-04-01 08:44] LABS: BUN/Creatinine Ratio 18.4 (10.0-20.0); Blood Urea Nitrogen 9 mg/dL (9-23); Glucose 94 mg/dL (74-106)
[2024-04-01 08:46] LABS: Bilirubin, Total 0.4 mg/dL (0.2-1.0); Total Protein 6.1 g/dL (5.7-8.2)
[2024-04-01 08:58] LABS: Alanine Aminotransferase 108 U/L (7-40); Alkaline Phosphatase 215 U/L (46-116); Aspartate Aminotransferase 46 U/L (13-40); Chloride 107 mmol/L (98-107)
--- NOTE | 2024-04-01 10:31 | DVHINCON2 ---
Date of service: Apr 01, 2024 Allergies: Coded Allergies: NO KNOWN ALLERGIES (Unverified , 03/28/24) Vital Signs Vital Signs Date Time Temp Pulse Resp B/P (MAP) Pulse Ox O2 Delivery O2 Flow Rate FiO2 04/01/24 09:00 98.6 90 21 117/75 (89) 99 98.6 03/31/24 20:00 Room Air* 0 21 Labs/Diagnostic Data Labs Test 04/01/24 07:06 04/01/24 06:10 03/29/24 06:50 03/28/24 19:09 Range/Units White Blood Count 10.4 4.4-10.8 10^3/uL Red Blood Count 3.84 L 4.5-5.90 10^6/uL Hemoglobin 11.6 L 13.5-17.5 g/dL Hematocrit 34.5 L 41.0-53.0 % Mean Corpuscular Volume 89.9 80.0-100.0 fL Mean Corpuscular Hemoglobin 30.1 28.0-32.0 pg Mean Corpuscular Hemoglobin Concent 33.4 32.0-36.0 g/dL Red Cell Distribution Width 13.9 11.8-14.3 % Platelet Count 303 140-450 10^3/uL Mean Platelet Volume 7.1 6.9-10.8 fL Neutrophils (%) (Auto) 64.7 37.0-80.0 % Lymphocytes (%) (Auto) 26.5 10.0-50.0 % Monocytes (%) (Auto) 6.6 0.0-12.0 % Eosinophils (%) (Auto) 1.6 0.0-7.0 % Basophils (%) (Auto) 0.6 0.0-2.0 % Neutrophils # (Auto) 6.7 1.6-8.6 10 ^3/uL Lymphocytes # (Auto) 2.8 0.4-5.4 10 ^3/uL Monocytes # (Auto) 0.7 0-1.3 10 ^3/uL Eosinophils # (Auto) 0.2 0-0.8 10 ^3/uL Basophils # (Auto) 0.1 0-0.2 10 ^3/uL Nucleated Red Blood Cells 0.0 % Prothrombin Time 11.7 9.3-11.8 sec Prothrombin Time INR 1.12 0.9-1.15 Activated Partial Thromboplast Time 28.9 24.5-34.5 SEC Sodium Level 141 136-145 mmol/L Potassium Level 3.9 3.5-5.1 mmol/L Chloride Level 107 98-107 mmol/L Carbon Dioxide Level 24 20-31 mmol/L Anion Gap 10 5-15 Blood Urea Nitrogen 9 9-23 mg/dL Creatinine 0.49 L 0.700-1.30 mg/dL Glomerular Filtration Rate Calc 113 >90 mL/min BUN/Creatinine Ratio 18.4 10.0-20.0 Serum Glucose 94 74-106 mg/dL Calcium Level 9.7 8.7-10.4 mg/dL Total Bilirubin 0.4 0.2-1.0 mg/dL Aspartate Amino Transferase (AST) 46 H 13-40 U/L Alanine Aminotransferase (ALT) 108 H 7-40 U/L Alkaline Phosphatase 215 H 46-116 U/L Total Protein 6.1 5.7-8.2 g/dL Albumin 4.0 3.2-4.8 g/dL POC Glucose 100 70-106 mg/dl Phosphorus Level 3.8 2.4-5.1 mg/dL Magnesium Level 1.8 1.6-2.6 mg/dL Amylase Level 51 30-118 U/L Lipase 38 12-53 U/L Microbiology Date/Time Source Procedure Growth Status 03/28/24 21:20 Nose MRSA Screen - Final Complete Assessment cholelithiasis, cholecystostomy, abdomen non tender, evidence of ongoing cholecystitis, planning cholecystectomy once medically cleared Plan discussed with: Patient, Other YOEL HUSSEIN MD Apr 01, 2024 10:31
--- NOTE | 2024-04-01 12:11 | DVHINCON2 ---
DATE OF CONSULTATION: 04/01/2024 SURGICAL CONSULTATION HISTORY OF PRESENT ILLNESS: The patient is a 68-year-old male with history of right CVA with left hemiparesis, confined to bed, who has history of uncontrolled diabetes, hypercholesterolemia, medical noncompliance. The patient was brought to the attending physician's office on 03/28/2024 by medical transport with the requesting evaluation and for management of deteriorating overall condition. The patient has history of recent right upper quadrant abdominal pains treated at [facility]. He was found to have cholelithiasis, choledocholithiasis, and cholecystitis and was treated by means of a percutaneous cholecystostomy placement. The patient has had recent loss of appetite, loss of weight. The patient apparently has no prior history of surgical problems. He has history of uncontrolled diabetes, hypercholesterolemia, TIAs, CVA. The patient apparently has been seen by vascular surgeon recently, who advised against vascular intervention for his recurrent carotid artery intervention. The patient's history also includes necrotizing infections affecting both feet and has been undergoing debridement and wound care of both feet. The patient [facility]. History of smoking is unknown. History of drug use is unknown. The patient is a non-user of alcohol. REVIEW OF SYSTEMS: Obtained by reading the patient's record because he is difficult to communicate with. The patient has no history of any problems in any of the reviewed systems contributing to the current illness as outlined above. PHYSICAL EXAMINATION: GENERAL: The patient is well-developed, well-nourished. There is no evidence of scarring on his chest or abdomen. HEENT: Pupils are equal, round, and reactive to light. Sclerae nonicteric. Ocular motion is intact. Uvula midline. Trachea midline. Carotids are full without bruits. Jugular veins are collapsed. There is no goiter. No lymph nodes. CHEST: The patient's lungs are bilaterally clear with no adventitial sounds. HEART: Regular rate and rhythm without murmur or gallop. ABDOMEN: Soft. Nontender. There is a cholecystostomy secured with a suture. There is no CVA tenderness. SKIN: Dry. JOINTS: Show full range of motion. The patient's laboratory evaluation included leukocytosis. Platelet count is normal. Leukocytosis of 11.7 on admission has now decreased to 10.4. The patient's INR is 1.12, PT is 11.7. Chemistry is normal bilirubin, normal electrolytes, normal renal function. The patient's liver enzymes are elevated with an alkaline phosphatase of 215, ALT of 108, and AST of 46. On imaging, the patient has a CT scan which shows diffuse gallbladder wall edema with a percutaneous cholecystostomy tube. The patient's ultrasound of the gallbladder shows cholelithiasis and an MRCP shows no evidence of common duct stones. The patient is a less than ideal candidate for a cholecystectomy. However, his clinical picture indicates ongoing chronic and acute cholecystitis and we will proceed with a cholecystectomy. Laparoscopic open cholecystectomy explained to the patient to the best of my ability. MD CAITY Emmanuel/SHAINA/HASEEB TID: [id number] RECEIPT: [id number]
--- NOTE | 2024-04-01 13:22 | DVHCONRES ---
Date Seen: Apr 01, 2024 Resident Creating Document: ENRIQUE YORK RESIDENT Referring Physician Stan History of Present Illness This is a 68-year-old male with past medical history of CVA with left hemiparesis bed-bound, type 2 diabetes mellitus, hyperlipidemia presented to the ED from [facility] for deteriorating general condition. According to the family the patient recently had suffered intermittent right upper quadrant pain accompanied obstructing Tad jaundice and was hospitalized at [facility] and was noted to have distended gallbladder and choledocholithiasis. The patient was given percutaneous transhepatic biliary drainage at [facility] several weeks ago. MRCP revealed cholelithiasis with gallbladder wall thickening suggesting acute cholecystitis. NM HIDA shows nonvisualized gallbladder, consistent with acute cholecystitis. Surgery was consulted and recommended possible laparoscopic versus open cholecystectomy tomorrow after cardiac clearance. The patient was seen and examined on the bedside. He is alert oriented x3. Complaining complaint of right upper quadrant pain. No other active complaint Allergies: Coded Allergies: NO KNOWN ALLERGIES (Unverified , 03/28/24) Vital Signs Vital Signs Date Time Temp Pulse Resp B/P (MAP) Pulse Ox O2 Delivery O2 Flow Rate FiO2 04/01/24 09:00 98.6 90 21 117/75 (89) 99 98.6 03/31/24 20:00 Room Air* 0 21 Physical Exam Physical examination: General Appearance: Alert, Oriented X3, Cooperative, No acute distress HEENT: Atraumatic, PERRLA, EOMI, Mucous membrane moist/pink Respiratory: Clear to auscultation, Normal air movement Cardiovascular: Regular rate, Normal S1, Normal S2, No murmurs, no chest wall tenderness Abdominal: Normal bowel sounds, Soft, tenderness in the rt upper quadrant, s/p cholecystostomy tube, No hepatospenomegaly, No masses Extremities: No clubbing, No cyanosis, No edema, Normal pulses, No tenderness/swelling Skin: No rashes, No breakdown, No significant lesion Neuro: Normal gait, Normal speech, Strength at 5/5 X4 ext, Normal tone, Sensation intact, grossly intact cranial nerves. Psych/Mental Status: Mental status NL, Mood NL Labs/Diagnostic Data Labs Test 04/01/24 12:45 04/01/24 07:06 03/29/24 06:50 03/28/24 19:09 Range/Units POC Glucose 99 70-106 mg/dl White Blood Count 10.4 4.4-10.8 10^3/uL Red Blood Count 3.84 L 4.5-5.90 10^6/uL Hemoglobin 11.6 L 13.5-17.5 g/dL Hematocrit 34.5 L 41.0-53.0 % Mean Corpuscular Volume 89.9 80.0-100.0 fL Mean Corpuscular Hemoglobin 30.1 28.0-32.0 pg Mean Corpuscular Hemoglobin Concent 33.4 32.0-36.0 g/dL Red Cell Distribution Width 13.9 11.8-14.3 % Platelet Count 303 140-450 10^3/uL Mean Platelet Volume 7.1 6.9-10.8 fL Neutrophils (%) (Auto) 64.7 37.0-80.0 % Lymphocytes (%) (Auto) 26.5 10.0-50.0 % Monocytes (%) (Auto) 6.6 0.0-12.0 % Eosinophils (%) (Auto) 1.6 0.0-7.0 % Basophils (%) (Auto) 0.6 0.0-2.0 % Neutrophils # (Auto) 6.7 1.6-8.6 10 ^3/uL Lymphocytes # (Auto) 2.8 0.4-5.4 10 ^3/uL Monocytes # (Auto) 0.7 0-1.3 10 ^3/uL Eosinophils # (Auto) 0.2 0-0.8 10 ^3/uL Basophils # (Auto) 0.1 0-0.2 10 ^3/uL Nucleated Red Blood Cells 0.0 % Prothrombin Time 11.7 9.3-11.8 sec Prothrombin Time INR 1.12 0.9-1.15 Activated Partial Thromboplast Time 28.9 24.5-34.5 SEC Sodium Level 141 136-145 mmol/L Potassium Level 3.9 3.5-5.1 mmol/L Chloride Level 107 98-107 mmol/L Carbon Dioxide Level 24 20-31 mmol/L Anion Gap 10 5-15 Blood Urea Nitrogen 9 9-23 mg/dL Creatinine 0.49 L 0.700-1.30 mg/dL Glomerular Filtration Rate Calc 113 >90 mL/min BUN/Creatinine Ratio 18.4 10.0-20.0 Serum Glucose 94 74-106 mg/dL Calcium Level 9.7 8.7-10.4 mg/dL Total Bilirubin 0.4 0.2-1.0 mg/dL Aspartate Amino Transferase (AST) 46 H 13-40 U/L Alanine Aminotransferase (ALT) 108 H 7-40 U/L Alkaline Phosphatase 215 H 46-116 U/L Total Protein 6.1 5.7-8.2 g/dL Albumin 4.0 3.2-4.8 g/dL Phosphorus Level 3.8 2.4-5.1 mg/dL Magnesium Level 1.8 1.6-2.6 mg/dL Amylase Level 51 30-118 U/L Lipase 38 12-53 U/L Microbiology Date/Time Source Procedure Growth Status 03/28/24 21:20 Nose MRSA Screen - Final Complete Assessment Assessment: # Right upper quadrant pain likely secondary to acute cholecystitis # acute cholecystitis with cholelithiasis # s/p percutaneous transhepatic biliary drainage # Transaminitis without hyperbilirubinemia # History of obstructive jaundice with choledocholithiasis # History of CVA with left-sided hemiparesis Plan: - continue IV antibiotic for cholecystitis as per primary team - surgical consultation appreciated - possible laparoscopic versus open cholecystectomy tomorrow after cardiac clearance - monitor liver enzymes and bilirubin Plan discussed with Dr. Henley Thank you for allowing us to taking care of this patient Plan discussed with: Patient, Other ENRIQUE YORK RESIDENT Apr 01, 2024 13:22
--- NOTE | 2024-04-01 14:56 | DVHINCON2 ---
Date of service: Mar 31, 2024 Referring Physician Dharmesh Reason for Consultation Cardiac clearance History of Present Illness This is a 68 year old male with a PMH of HTN< CAD, A Fib, DM, HLD, stroke with left hemiparesis who was seen by Dr. Barroso outpatient with complaints of deteriorating of his general condition of the patient from not able to be receiving adequate care at [facility]. She adds that patient recently had suffered intermittent RUQ abdominal pains accompanied by obstructive jaundice. He was Hospitalized at [facility] and was noted to have distended gallbladder and choledocholithiasis. The patient was given percutaneous transhepatic biliary drainage-surgical interventional procedure at [facility] several weeks ago. Patient has been symptomatic for RUQ abdominal pain nausea and poor appetite. Patient has significant weight loss. As per , she tried to replenish nutritional needs but could not fulfill requirements for she could not drive 40-50 miles ( RT 100 miles/d). Chest x-ray showed NAD. CT abd/pel showed diffuse gallbladder wall edema. A percutaneous cystostomy tube is in place. Moderate hypertension large-bowel rectum with findings suggestive of stercoral colitis. NM HIDA shows nonvisualized gallbladder, consistent with acute cholecystitis. Patient was admitted to the hospital. I am asked to consult on this patient. Allergies: Coded Allergies: NO KNOWN ALLERGIES (Unverified , 03/28/24) Review of Systems Constitutional: Denies easy tiredness, fever chills weight loss HEENT: Denies headache/conjunctival/ENT pains or congestion, Noted dysarthria, denies hearing or visual deficit Neck: Denies cervical spine local/radicular pains, stiffness/ spasms, Denies reduced ROM, denies goiters/stridor Respiratory: Denies chest congestion, cough, wheezing, SOB, pleuritic chest pains Cardiovascular: Denies angina,palpitation, edema, orthopnea and PND Gastrointestinal: RUQ Abdominal pains/tenderness, loss of appetite, weight loss Reports constipation denies melena, GI bleeding Genitourinary: Denies dysuria, flank pains, frequency, hematuria, Denies passing foul odor/cloudy turbid urine, nocturia Musculoskeletal: Denies generalized aches/pains,/myalgias /weakness Denies back pains, spasms, stiffness, radicular pains, Extremities: Denies edema, rash, open wounds, discoloration, spasms, radicular pains Neurology: Noted confused mental status, left-sided weakness SKIN: Denies rashes or open ulcerated wound Endocrine: Reports neuropathy pains over bilateral feet, Hemato/Onc : Denies easy tiredness, bruising, lymphadenopathy Psychiatry: Denies anxiety or depression disorder Otherwise the Review of Systems is Negative as per History & Physical Interview: Yes Vital Signs Vital Signs Date Time Temp Pulse Resp B/P (MAP) Pulse Ox O2 Delivery O2 Flow Rate FiO2 04/01/24 14:41 93 18 114/69 04/01/24 13:00 98.5 98 98.5 04/01/24 08:10 Room Air* 0 21 Physical Exam GENERAL: Awake, alert, oriented. LUNGS: Clear. CARDIOVASCULAR: Heart sounds are good. ABDOMEN: Soft. RUQ TTP. Labs/Diagnostic Data Labs Test 04/01/24 12:45 04/01/24 07:06 03/29/24 06:50 03/28/24 19:09 Range/Units POC Glucose 99 70-106 mg/dl White Blood Count 10.4 4.4-10.8 10^3/uL Red Blood Count 3.84 L 4.5-5.90 10^6/uL Hemoglobin 11.6 L 13.5-17.5 g/dL Hematocrit 34.5 L 41.0-53.0 % Mean Corpuscular Volume 89.9 80.0-100.0 fL Mean Corpuscular Hemoglobin 30.1 28.0-32.0 pg Mean Corpuscular Hemoglobin Concent 33.4 32.0-36.0 g/dL Red Cell Distribution Width 13.9 11.8-14.3 % Platelet Count 303 140-450 10^3/uL Mean Platelet Volume 7.1 6.9-10.8 fL Neutrophils (%) (Auto) 64.7 37.0-80.0 % Lymphocytes (%) (Auto) 26.5 10.0-50.0 % Monocytes (%) (Auto) 6.6 0.0-12.0 % Eosinophils (%) (Auto) 1.6 0.0-7.0 % Basophils (%) (Auto) 0.6 0.0-2.0 % Neutrophils # (Auto) 6.7 1.6-8.6 10 ^3/uL Lymphocytes # (Auto) 2.8 0.4-5.4 10 ^3/uL Monocytes # (Auto) 0.7 0-1.3 10 ^3/uL Eosinophils # (Auto) 0.2 0-0.8 10 ^3/uL Basophils # (Auto) 0.1 0-0.2 10 ^3/uL Nucleated Red Blood Cells 0.0 % Prothrombin Time 11.7 9.3-11.8 sec Prothrombin Time INR 1.12 0.9-1.15 Activated Partial Thromboplast Time 28.9 24.5-34.5 SEC Sodium Level 141 136-145 mmol/L Potassium Level 3.9 3.5-5.1 mmol/L Chloride Level 107 98-107 mmol/L Carbon Dioxide Level 24 20-31 mmol/L Anion Gap 10 5-15 Blood Urea Nitrogen 9 9-23 mg/dL Creatinine 0.49 L 0.700-1.30 mg/dL Glomerular Filtration Rate Calc 113 >90 mL/min BUN/Creatinine Ratio 18.4 10.0-20.0 Serum Glucose 94 74-106 mg/dL Calcium Level 9.7 8.7-10.4 mg/dL Total Bilirubin 0.4 0.2-1.0 mg/dL Aspartate Amino Transferase (AST) 46 H 13-40 U/L Alanine Aminotransferase (ALT) 108 H 7-40 U/L Alkaline Phosphatase 215 H 46-116 U/L Total Protein 6.1 5.7-8.2 g/dL Albumin 4.0 3.2-4.8 g/dL Phosphorus Level 3.8 2.4-5.1 mg/dL Magnesium Level 1.8 1.6-2.6 mg/dL Amylase Level 51 30-118 U/L Lipase 38 12-53 U/L Microbiology Date/Time Source Procedure Growth Status 03/28/24 21:20 Nose MRSA Screen - Final Complete Assessment Acute RUQ abdominal pain. Acute cholecystitis. Recent history of choledocholithiasis and obstructive jaundice. Status post percutaneous transhepatic biliary drainage. Hypovolemia. Right CVA with left-sided hemiparesis. Diabetes. Hypertension. Noncompliance with medical recommendations. Plan/Recommendation I agree with your ongoing assessment and care of plan. Echocardiogram. Aspirin, Lipitor. IV antibiotics as ordered. Dilaudid for pain management. Additional plan as per the hospital course. A total of 45 minutes was spent reviewing the patient record, examining the patient, making a diagnostic and therapeutic plan, discussing this plan with medical personnel, following up on diagnostic studies and following the patient for clinical stability excluding any and all procedures. At least 50% of this time was spent in direct, [id number] contact. Plan discussed with: Patient ANITRA HOOD MD Apr 01, 2024 14:47
--- NOTE | 2024-04-01 14:58 | DVHPN2 ---
Progress Note - Dictate Date Seen: Apr 01, 2024 Has the PT tested + for MRSA If YES, has PT been informed?: No Medical Necessity Reason Pt with a Central, PICC or Fol: No Subjective Patient was seen and evaluated in follow up. Patient is complaining of abdominal pain. MRCP shows no intra or extra hepatic biliary ductal dilatation. No MRI evidence of choledocholithiasis. Cholelithiasis with gallbladder wall thickening suggesting acute cholecystitis. Patient is scheduled for cholecystectomy with surgeon. Echocardiogram is pending. Telemetry reviewed. vital signs Vital Sign Date Time Temp Pulse Resp B/P (MAP) Pulse Ox O2 Delivery O2 Flow Rate FiO2 04/01/24 14:41 93 18 114/69 04/01/24 13:00 98.5 98 98.5 04/01/24 08:10 Room Air* 0 21 Total Intake and Output 03/31/24 03/31/24 04/01/24 15:00 23:00 07:00 Intake Total 1000 ml 610 ml 1400 ml Output Total 450 ml 1550 ml Balance 1000 ml 160 ml -150 ml medications Current Medications Medications Dose Ordered Sig/Aruna Route Start Time Stop Time Status Last Admin Dose Admin Atorvastatin Calcium 40 mg HS PO 03/28/24 22:00 03/31/24 23:15 Aspirin 81 mg DAILY PO 03/29/24 10:00 03/31/24 13:22 Metronidazole 100 ml @ 100 mls/hr Q12HR IV 03/28/24 22:00 04/01/24 10:50 Diagnostic Test (Pha) 1 strip ACHS 03/28/24 22:00 04/01/24 12:46 Insulin Human Regular HS SC 03/28/24 22:00 03/31/24 23:10 Insulin Human Regular AC SC 03/29/24 07:00 03/30/24 11:52 Dextrose 50 ml UD PRN IV 03/28/24 18:15 Nitroglycerin 0.4 mg Q5MINP PRN SL 03/28/24 18:30 Ceftriaxone Sodium/Dextrose 50 ml @ 50 mls/hr DAILY@2100 IV 03/28/24 21:20 03/31/24 21:29 Sodium Chloride 1,000 ml @ 80 mls/hr [id number] IV 03/30/24 20:15 03/31/24 08:18 Hydromorphone HCl 0.4 mg Q4HPRN PRN IV 03/30/24 23:00 03/31/24 23:21 Hydromorphone HCl 0.6 mg Q4HPRN PRN IV 03/30/24 23:00 04/01/24 14:41 objective GENERAL: Awake, alert, oriented. LUNGS: Clear. CARDIOVASCULAR: Heart sounds are good. ABDOMEN: Soft. RUQ TTP. laboratory and microbiology Laboratory Tests 04/01/24 07:06 Test 04/01/24 07:06 Range/Units Serum Glucose 94 74-106 mg/dL Problem List Acute RUQ abdominal pain. Acute cholecystitis. Recent history of choledocholithiasis and obstructive jaundice. Status post percutaneous transhepatic biliary drainage. Hypovolemia. Right CVA with left-sided hemiparesis. Diabetes. Hypertension. Noncompliance with medical recommendations. Assessment/Plan Continued all current supportive medical care. Echocardiogram. Aspirin, Lipitor. IV antibiotics as ordered. Dilaudid for pain management. Additional plan as per the hospital course. Plan discussed with: Patient ANITRA HOOD MD Apr 01, 2024 14:58
--- NOTE | 2024-04-01 17:56 | DVHPN2 ---
Progress Note - Dictate Date Seen: Apr 01, 2024 Has the PT tested + for MRSA If YES, has PT been informed?: No Medical Necessity Reason Pt with a Central, PICC or Fol: No Medical Necessity Reason RUQ abdominal pains from acute cholecystitis Awaiting General surgery Subjective The patient remains symptomatic for RUQ abdominal pains from acute cholecystitis The latter has been diagnosed thru MRCP, CT abdomen exam as well as HIDA scan Remains hemodynamically stable and afebrile * Awaiting to receive medical records * Apparently patient's records are not at [facility] * Patient's caregiver not fully aware where about his previous surgery was * The patient is seen by Dr. Nunez who recommends cholecystectomy * Cardiac cleared by Dr. Adriel Mcarthur Overnight events are reviewed through medical chart and case discussion with patient's assigned RN while making rounds on patient on the day of service vital signs Vital Sign Date Time Temp Pulse Resp B/P (MAP) Pulse Ox O2 Delivery O2 Flow Rate FiO2 04/01/24 17:00 98.7 79 18 118/59 (78) 96 98.7 04/01/24 08:10 Room Air* 0 21 Total Intake and Output 03/31/24 03/31/24 04/01/24 15:00 23:00 07:00 Intake Total 1000 ml 610 ml 1400 ml Output Total 450 ml 1550 ml Balance 1000 ml 160 ml -150 ml medications Current Medications Medications Dose Ordered Sig/Aruna Route Start Time Stop Time Status Last Admin Dose Admin Atorvastatin Calcium 40 mg HS PO 03/28/24 22:00 03/31/24 23:15 40 MG Aspirin 81 mg DAILY PO 03/29/24 10:00 03/31/24 13:22 81 MG Metronidazole 100 ml @ 100 mls/hr Q12HR IV 03/28/24 22:00 04/01/24 10:50 100 MLS/HR Diagnostic Test (Pha) 1 strip ACHS 03/28/24 22:00 04/01/24 16:53 1 STRIP Insulin Human Regular HS SC 03/28/24 22:00 03/31/24 23:10 3 UNITS Insulin Human Regular AC SC 03/29/24 07:00 03/30/24 11:52 2 UNITS Dextrose 50 ml UD PRN IV 03/28/24 18:15 Nitroglycerin 0.4 mg Q5MINP PRN SL 03/28/24 18:30 Ceftriaxone Sodium/Dextrose 50 ml @ 50 mls/hr DAILY@2100 IV 03/28/24 21:20 03/31/24 21:29 50 MLS/HR Sodium Chloride 1,000 ml @ 80 mls/hr [id number] IV 03/30/24 20:15 03/31/24 08:18 80 MLS/HR Hydromorphone HCl 0.4 mg Q4HPRN PRN IV 03/30/24 23:00 03/31/24 23:21 0.4 MG Hydromorphone HCl 0.6 mg Q4HPRN PRN IV 03/30/24 23:00 04/01/24 14:41 0.6 MG objective Physical Exam General appearance: Well-developed, well-nourished middle-aged male Awake alert oriented x 2 at times confused no respiratory distress Head: Normocephalic nontraumatic Eyes: EOMI, ALIE, sclera nonicteric, conjunctive- pale ENT: No congestion, NSL bilateral symmetrical, oral mucosa dry Neck: Supple, carotid upstroke +2, trachea midline, JVD 2 cm No goiter/stridor, no lymph nodes JVD-3 cm, C spine- Full ROM No use of sternomastoid muscle Chest: Bilateral symmetrical expansions, no costochondral tenderness Lungs: clear breath sounds all over except reduced at bases CVS: PMI-1 cm medial to L MCL in fifth ICS , S1-S2 NSR no S3 GI: Abdomen soft, obese, bowel sounds normoactive RUQ-postsurgical wound clean, draining bile RUQ tenderness, no rebound tenderness No hepatosplenomegaly, no mass no hernia , : No CVA tenderness, no bladder mass palpable, genitalia-NE SKIN: Turgor dry, color pink, no rash, no icterus, No varicosity, no ulcers or wounds EXTs: No edema, color pink, no rash, no ecchymosis distal pulses +2 capillary refill <2 seconds, No open wounds JOINTS; full range of motion BACK: No apparent lumbosacral spinal muscle tenderness, LYMPH NODES: No cervical, axillary or inguinal lymph nodes Neuro: Awake alert oriented 2, coherent, Speech is nonfluent, expressive aphasia Left-sided hemiparesis motor strength three to 4/5 Sensory-changes of DPN, DTR +2, gait-not examined PSYCH: Affect mildly depressed-denies suicidal ideation laboratory and microbiology Laboratory Tests 04/01/24 07:06 Test 04/01/24 07:06 Range/Units Serum Glucose 94 74-106 mg/dL Problem List 1. Acute RUQ abdominal pains a. Acute cholecystitis Recent history of choledocholithiasis and obstructive jaundice b. Status post percutaneous transhepatic biliary drainage c. " distended gallbladder-possible cholelithiasis 2. R CVA with left-sided hemiparesis a. R ICA occlusion 3. Fairly well-controlled diabetes and hypertension 2' Diagnosis/Comorbidities Noncompliance with medical recommendations Doppler lower Assessment/Plan Medical decision making The patient remains symptomatic for RUQ abdominal pains from acute cholecystitis -remains hemodynamically stable and afebrile Diagnosis of acute cholecystitis was made through MRCP, HIDA scan and CT abdomen * Seen by Dr. Vinnie nunez who recommends cholecystectomy provided patient is medically clear * Seen by Dr. Adriel Mcarthur cardiology cleared the patient * Continued patient on IV antibiotics, IV fluids * Resume patient to oral intake of food until patient gets OR spot * Requested room medical records from [facility] but there were no records Patient's caregiver ex- does not know exact whereabouts of his surgery Treatment Plans Continue patient's hospital stay at telemetry Reviewed input of Dr. Vinnie Levin for Acute cholecystitis Reviewed input of Dr. Adriel Mcarthur for Cardiology clearance Refer patient Dr. Raul Barroso for Infectious Disease consult Continue IV Rocephin and Flagyl Reviewed input of Dr. Leticia Henley-case discussed with him Resume diet if no surgery is scheduled this evening Blood cultures p.r.n. temp 101.5 x3 Continue IV hydration Parenteral analgesics Reviewed input of CONTRACTING OFFICER-GI consult Reconciled home meds VTE precautions Update patient The patient and and his were well informed by me about 1. Clinical impression, treatment plans, side effects of medications, course of the disease and guarded prognosis 2. All patient's question/ concerns raised by patient are satisfactorily addressed by me Total time spent 45 minutes 40% of time spent interviewing the patient and physical exam 30% of time spent in gathering lab datas and imaging studies 30 % of time is spent in patient education Plan discussed with: Patient Total Time (mins): 45 ALLA BARROSO MD Apr 01, 2024 17:56
[2024-04-02] VITALS (33 sets, daily range): BP systolic 97–137; BP diastolic 45–97; PULSE 76–110; RESP 10–19; TEMP 97.8–98.8; O2SAT 94–99
[2024-04-02 08:32] LABS: Basophils # (auto) 0 10 ^3/uL (0-0.2); Basophils % (auto) 0.4 % (0.0-2.0); Eosinophils # (auto) 0.2 10 ^3/uL (0-0.8); Eosinophils % (auto) 1.9 % (0.0-7.0); Hematocrit 34.8 % (41.0-53.0); Hemoglobin 11.7 g/dL (13.5-17.5); Lymphocytes # (auto) 2.4 10 ^3/uL (0.4-5.4); Lymphocytes % (auto) 26.3 % (10.0-50.0); Mean Corpuscular Hgb Conc. 33.7 g/dL (32.0-36.0); Mean Corpuscular Volume 89.2 fL (80.0-100.0); Monocytes # (auto) 0.6 10 ^3/uL (0-1.3); Monocytes % (auto) 6.5 % (0.0-12.0); Neutrophils # (auto) 5.9 10 ^3/uL (1.6-8.6); Neutrophils % (auto) 64.9 % (37.0-80.0); Nucleated Red Blood Cells % 0.1 %; Platelet Count (auto) 307 10^3/uL (140-450); Red Cell Distribution Width 14.1 % (11.8-14.3)
[2024-04-02 09:20] LABS: Albumin 3.8 g/dL (3.2-4.8); Anion Gap 12 (5-15); Blood Urea Nitrogen 10 mg/dL (9-23); Calcium 9.5 mg/dL (8.7-10.4); Carbon Dioxide 21 mmol/L (20-31); Glucose 80 mg/dL (74-106); Sodium 141 mmol/L (136-145)
[2024-04-02 09:22] LABS: Alanine Aminotransferase 81 U/L (7-40); Alkaline Phosphatase 176 U/L (46-116); Aspartate Aminotransferase 40 U/L (13-40); Bilirubin, Total 0.3 mg/dL (0.2-1.0); Chloride 108 mmol/L (98-107); Total Protein 6.1 g/dL (5.7-8.2)
[2024-04-02] MEDS ORDERED: PHENYLEPHRINE HCL 10 MG/ML VL IV ONE (11:20)
--- NOTE | 2024-04-02 12:03 | DVHPN2 ---
Progress Note Date Seen: Apr 02, 2024 Has the PT tested + for MRSA If YES, has PT been informed?: No Medical Necessity Reason Pt with a Central, PICC or Fol: No Subjective Review of Systems: GI:Abnormal Objective vital signs Vital Sign Date Time Temp Pulse Resp B/P (MAP) Pulse Ox O2 Delivery O2 Flow Rate FiO2 04/02/24 09:00 97.8 76 18 102/64 (77) 95 97.8 04/02/24 08:20 Room Air* 0 21 Total Intake and Output 04/01/24 04/01/24 04/02/24 15:00 23:00 07:00 Intake Total 100 ml 745 ml 0 ml Output Total 550 ml 400 ml Balance 100 ml 195 ml -400 ml medications Current Medications Medications Dose Ordered Sig/Aruna Route Start Time Stop Time Status Last Admin Dose Admin Atorvastatin Calcium 40 mg HS PO 03/28/24 22:00 04/01/24 21:54 40 MG Aspirin 81 mg DAILY PO 03/29/24 10:00 03/31/24 13:22 81 MG Metronidazole 100 ml @ 100 mls/hr Q12HR IV 03/28/24 22:00 04/01/24 21:54 100 MLS/HR Diagnostic Test (Pha) 1 strip ACHS 03/28/24 22:00 04/02/24 05:10 1 STRIP Insulin Human Regular HS SC 03/28/24 22:00 03/31/24 23:10 3 UNITS Insulin Human Regular AC SC 03/29/24 07:00 03/30/24 11:52 2 UNITS Dextrose 50 ml UD PRN IV 03/28/24 18:15 Nitroglycerin 0.4 mg Q5MINP PRN SL 03/28/24 18:30 Ceftriaxone Sodium/Dextrose 50 ml @ 50 mls/hr DAILY@2100 IV 03/28/24 21:20 04/01/24 20:40 50 MLS/HR Sodium Chloride 1,000 ml @ 80 mls/hr [id number] IV 03/30/24 20:15 04/01/24 20:25 80 MLS/HR Hydromorphone HCl 0.4 mg Q4HPRN PRN IV 03/30/24 23:00 04/01/24 22:18 0.4 MG Hydromorphone HCl 0.6 mg Q4HPRN PRN IV 03/30/24 23:00 04/01/24 14:41 0.6 MG Examination: ABDOMEN:Abnormal laboratory and microbiology Laboratory Tests 04/02/24 07:17 Test 04/02/24 07:17 Range/Units Serum Glucose 80 74-106 mg/dL Problem List/Assessment/Plan Problem List/Assessment/Plan 04/02/24 patients persistent complaint of abdominal pain , we will proceed with emergent operation , Laparoscopic possibly open cholecystectomy Plan discussed with: Patient, Other (Dr. Marin ) LAMAR CHOE TUBE BLOWER Apr 02, 2024 12:03
[2024-04-02] MEDS ORDERED: fentaNYL CITRATE 100 MCG/2 ML VL ONE (12:21)
[2024-04-02] MEDS ORDERED: MIDAZOLAM HCL 2MG/2ML 2ml VIAL (1mg/ml) ONE (12:22)
[2024-04-02] MEDS ORDERED: DexAMETHasone SOD PHOS 10MG/1ML VIAL INJ ONE (12:28)
[2024-04-02] MEDS ORDERED: ETOMIDATE (2MG/ML) 20ML VIAL IV ONE (12:45)
[2024-04-02] MEDS ORDERED: SUGAMMADEX 200mg/2ml Vial (100MG/ML) IV ONE (13:38)
[2024-04-02] MEDS: HYDROmorphone HCL 2 MG/ML VL/or syr IV PRN (13:59)
[2024-04-02] MEDS ORDERED: hydrALAZINE HCL 20 MG/ML VL IV PRN (14:15)
[2024-04-02] MEDS ORDERED: ePHEDrine SULFATE 50 MG/ML AMP IV PRN (14:15)
[2024-04-02] MEDS: ONDANSETRON HCL 4 MG/2 ML VIAL IV ONE (14:15)
--- NOTE | 2024-04-02 14:21 | DVHPN2 ---
Progress Note Date Seen: Apr 02, 2024 Resident Creating Document: ENRIQUE YORK RESIDENT Has the PT tested + for MRSA If YES, has PT been informed?: No Medical Necessity Reason Pt with a Central, PICC or Fol: No Subjective Review of Systems Patient was seen and examined on the bedside. He is alert oriented x3. Complaint of right upper quadrant pain and tenderness. The patient went to the OR for emergency laparoscopic versus open cholecystectomy. Objective vital signs Vital Sign Date Time Temp Pulse Resp B/P (MAP) Pulse Ox O2 Delivery O2 Flow Rate FiO2 04/02/24 09:00 97.8 76 18 102/64 (77) 95 97.8 04/02/24 08:20 Room Air* 0 21 Total Intake and Output 04/01/24 04/01/24 04/02/24 15:00 23:00 07:00 Intake Total 100 ml 745 ml 0 ml Output Total 550 ml 400 ml Balance 100 ml 195 ml -400 ml medications Current Medications Medications Dose Ordered Sig/Aruna Route Start Time Stop Time Status Last Admin Dose Admin Atorvastatin Calcium 40 mg HS PO 03/28/24 22:00 04/01/24 21:54 40 MG Aspirin 81 mg DAILY PO 03/29/24 10:00 03/31/24 13:22 81 MG Metronidazole 100 ml @ 100 mls/hr Q12HR IV 03/28/24 22:00 04/01/24 21:54 100 MLS/HR Diagnostic Test (Pha) 1 strip ACHS 03/28/24 22:00 04/02/24 05:10 1 STRIP Insulin Human Regular HS SC 03/28/24 22:00 03/31/24 23:10 3 UNITS Insulin Human Regular AC SC 03/29/24 07:00 03/30/24 11:52 2 UNITS Dextrose 50 ml UD PRN IV 03/28/24 18:15 Nitroglycerin 0.4 mg Q5MINP PRN SL 03/28/24 18:30 Ceftriaxone Sodium/Dextrose 50 ml @ 50 mls/hr DAILY@2100 IV 03/28/24 21:20 04/01/24 20:40 50 MLS/HR Sodium Chloride 1,000 ml @ 80 mls/hr [id number] IV 03/30/24 20:15 04/01/24 20:25 80 MLS/HR Hydromorphone HCl 0.4 mg Q4HPRN PRN IV 03/30/24 23:00 04/01/24 22:18 0.4 MG Hydromorphone HCl 0.6 mg Q4HPRN PRN IV 03/30/24 23:00 04/01/24 14:41 0.6 MG Hydralazine HCl 5 mg Q10M PRN IV 04/02/24 14:15 04/02/24 15:06 UNV Morphine Sulfate 2 mg Q2HPRN PRN IV 04/02/24 14:15 04/02/24 14:16 UNV Midazolam HCl 1 mg Q10M PRN IV 04/02/24 14:15 04/02/24 14:56 UNV Ephedrine Sulfate 10 mg Q10M PRN IV 04/02/24 14:15 04/02/24 14:56 UNV Hydromorphone HCl 0.5 mg Q10M PRN IV 04/02/24 14:15 04/02/24 14:56 UNV Examination Physical examination: General Appearance: Alert, Oriented X3, Cooperative, mild distress HEENT: Atraumatic, PERRLA, EOMI, Mucous membrane moist/pink Respiratory: Clear to auscultation, Normal air movement Cardiovascular: Regular rate, Normal S1, Normal S2, No murmurs, no chest wall tenderness Abdominal: Normal bowel sounds, Soft, tenderness in rt upper quadrant, No hepatospenomegaly, No masses Extremities: No clubbing, No cyanosis, No edema, Normal pulses, No tenderness/swelling Skin: No rashes, No breakdown, No significant lesion Neuro: Normal gait, Normal speech, Strength at 5/5 X4 ext, Normal tone, Sensation intact, grossly intact cranial nerves. Psych/Mental Status: Mental status NL, Mood NL laboratory and microbiology Laboratory Tests 04/02/24 07:17 Test 04/02/24 07:17 Range/Units Serum Glucose 80 74-106 mg/dL Microbiology Date/Time Source Procedure Growth Status 03/28/24 21:20 Nose MRSA Screen - Final Complete Labs and/or images reviewed: Labs reviewed by me, Image(s) reviewed by me Problem List/Assessment/Plan Problem List/Assessment/Plan Assessment: # Right upper quadrant pain likely secondary to acute cholecystitis # acute cholecystitis with cholelithiasis # s/p percutaneous transhepatic biliary drainage # Transaminitis without hyperbilirubinemia # History of obstructive jaundice with choledocholithiasis # History of CVA with left-sided hemiparesis Plan: - Continue tube feeding /TPN - continue IV antibiotic for cholecystitis as per primary team - surgical consultation appreciated - S/P Laparoscopy, evacuation of right upper quadrant biloma and abscess evacuation of myriad of small black gallstones, cholecystectomy - monitor liver enzymes and bilirubin Plan discussed with Dr. Henley Plan discussed with: Patient, Other ENRIQUE YORK RESIDENT Apr 02, 2024 14:20
[2024-04-02] MEDS ORDERED: ONDANSETRON HCL 4 MG/2 ML VIAL IV PRN (14:30)
--- NOTE | 2024-04-02 14:32 | ECG ---
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
--- NOTE | 2024-04-02 14:32 | ECG ---
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 : 1955 Requested By: ALLA STRINGER Order Number: [id number] Reading MD: Chandrakant Mina Measurements Intervals [place] Rate: 85 P: 3 [place]: 138 QRS: 55 QRSD: 81 T: -37 QT: 400 QTc: 476 Interpretive Statements Incomplete analysis due to missing data in precordial lead(s) Sinus rhythm Ventricular premature complex Abnormal R-wave progression, late transition Consider left ventricular hypertrophy Nonspecific T abnormalities, inferior leads Anterior ST elevation, probably due to LVH Borderline prolonged QT interval Missing lead(s): V1 Electronically Signed On 04-03-2024 9:34:13 PST by Chandrakant Mina Please click the below link to view image of tracing.
--- NOTE | 2024-04-02 14:35 | DVHOP ---
DATE OF SURGERY: 04/02/2024 PREOPERATIVE DIAGNOSES: Chronic and acute cholecystitis, cholelithiasis, cholecystostomy status post cerebrovascular accident, coronary artery disease, heart disease, left hemiplegia. POSTOPERATIVE DIAGNOSES: Chronic and acute cholecystitis, cholelithiasis, cholecystostomy status post cerebrovascular accident, coronary artery disease, heart disease, left hemiplegia. SURGEON: Vinnie Marin MD. SUPERVISOR INSPECTION: Bethel Pierce. ANESTHESIA: General endotracheal. ANESTHESIOLOGIST: Dr. Waldrop. PROCEDURES: Laparoscopy, evacuation of right upper quadrant biloma and abscess evacuation of myriad of small black gallstones, cholecystectomy. DESCRIPTION OF PROCEDURE: Under general endotracheal anesthesia, with the patient's skin prepped and draped, a supraumbilical incision was made and Veress needle inserted into the peritoneal cavity by the hanging drop technique in order to establish pneumoperitoneum to 15 mmHg pressure by insufflation with carbon dioxide. With the abdomen fully distended, the needle was removed and replaced with a 5 mm trocar port through which a 0-degree viewing laparoscope was inserted, and under direct vision, additional 5 and 10 mm ports were inserted through the right anterior axillary line at the level of the umbilicus and through the subxiphoid skin in the midline respectively. Instrumentation was introduced and laparoscopy was performed. There was a fibrous phlegmon in the right upper quadrant, which consisted of the transverse colon, omentum, loops of small bowel. The anterior edge of the right lobe of the liver and the gallbladder was finally uncovered by dissecting this wood-like concretions. The inflammation was exuberant and after dissecting the omentum from the fundus of the gallbladder, it became obvious that the patient had a ruptured gallbladder, which spilled a myriad of tiny stones, which was then sealed off by his omentum and contained a biloma and a pus collection. Cultures and sensitivities were obtained. The myriad of little stones were aspirated and scooped up with a forcep to the best of my ability and then the gallbladder was resected by circumferentially dissecting the cystic duct and cystic artery. The cystic artery was dissected between metallic clips and divided. Similarly, the cystic duct was divided between metallic clips close to the gallbladder. No attempt was made to trace the cystic duct to its confluence with the common duct due to the exuberant inflammation and ligneous-like adhesions and concretions in order to protect the common duct from inadvertent injury. The gallbladder was then removed from the field. It appeared to be necrotic in several areas and it was submitted. The right upper quadrant was then irrigated with 2 liters of saline which was aspirated. Hemostasis was meticulously inspected. Two Adrian-Alvares drains were then inserted, one underneath the lobe of the liver and one above the lobe of the liver and these drains were exteriorized through the 5 mm trocar port site on the right flank and secured with a 2-0 nylon suture. Subsequently, after assurance of complete hemostasis and evacuation of as much of the biloma into the hematoma as possible and profuse irrigation, the instrumentation was withdrawn. Pneumoperitoneum was evacuated. Fascial defect closed using 0 Vicryl. Wounds approximated using Monocryl sutures, Dermabond glue and Steri-Strips. The patient remained hemodynamically stable throughout the procedure and left the operating room following an accurate needle and sponge count. This operation was an emergency intervention and it was kept laparoscopic in order to minimize the impact on the patient's overall health which is very poor. The patient has severe heart disease, lung disease, status post CVA with hemiplegia. Cryptanalyst's note indicated that the patient eventually should have a coronary artery bypass graft. He remained normotensive throughout the procedure and left the operating room following an accurate needle and sponge count. His will be contacted by phone at #[phone]. MD CAITY Emmanuel/AISHWARYA TID: [id number] RECEIPT: [id number]
[2024-04-02] MEDS: MORPHINE SULFATE 4 MG/ML SYR/VIAL IV PRN (14:46)
[2024-04-02] MEDS: ACETAMINOPHEN IV 100 ML IV ONE (15:29)
[2024-04-02] MEDS: ACETAMINOPHEN IV 1000 MG/100ML (10MG/ML) IV ONE (15:30)
[2024-04-02] MEDS: MIDAZOLAM HCL 2MG/2ML 2ml VIAL (1mg/ml) IV PRN (16:13)
[2024-04-02 16:15] LABS: Magnesium 1.8 mg/dL (1.6-2.6)
[2024-04-02 16:17] LABS: Phosphorus 3.4 mg/dL (2.4-5.1)
[2024-04-02] MEDS: LIDOCAINE W/ EPINEPHRINE 1% 20ML VIAL ONE (16:54)
[2024-04-02] MEDS: HYDROmorphone HCL 2 MG/ML VL/or syr ONE (16:54)
[2024-04-02] MEDS: BUPIVACAINE 0.5% P/F INJ 10 ML VIAL ONE (16:54)
[2024-04-02] MEDS: ceFAZolin 2 GM/D5W100ml 100 ML IV ONE (16:54)
[2024-04-02] MEDS: PANTOPRAZOLE 40 MG/10 ML VIAL INJ IV SCH (19:21)
[2024-04-02] MEDS: D5W/SOD CHL 0.45%/KCL 20MEQ 1,000 ML IV SCH (20:21)
--- NOTE | 2024-04-02 21:47 | DVHPN2 ---
Progress Note - Dictate Date Seen: Apr 02, 2024 Has the PT tested + for MRSA If YES, has PT been informed?: No Medical Necessity Reason Pt with a Central, PICC or Fol: No Subjective Patient was seen and evaluated in follow up in the ICU. Patient is complaining of abdominal pain. Patient is scheduled for laparoscopic cholecystectomy today. Patient is cardiac clear for procedure. H&H stable. vital signs Vital Sign Date Time Temp Pulse Resp B/P (MAP) Pulse Ox O2 Delivery O2 Flow Rate FiO2 04/02/24 09:00 97.8 76 18 102/64 (77) 95 97.8 04/02/24 08:20 Room Air* 0 21 Total Intake and Output 04/01/24 04/01/24 04/02/24 15:00 23:00 07:00 Intake Total 100 ml 745 ml 0 ml Output Total 550 ml 400 ml Balance 100 ml 195 ml -400 ml medications Current Medications Medications Dose Ordered Sig/Aruna Route Start Time Stop Time Status Last Admin Dose Admin Atorvastatin Calcium 40 mg HS PO 03/28/24 22:00 04/01/24 21:54 40 MG Aspirin 81 mg DAILY PO 03/29/24 10:00 03/31/24 13:22 81 MG Metronidazole 100 ml @ 100 mls/hr Q12HR IV 03/28/24 22:00 04/01/24 21:54 100 MLS/HR Diagnostic Test (Pha) 1 strip ACHS 03/28/24 22:00 04/02/24 05:10 1 STRIP Insulin Human Regular HS SC 03/28/24 22:00 03/31/24 23:10 3 UNITS Insulin Human Regular AC SC 03/29/24 07:00 03/30/24 11:52 2 UNITS Dextrose 50 ml UD PRN IV 03/28/24 18:15 Nitroglycerin 0.4 mg Q5MINP PRN SL 03/28/24 18:30 Ceftriaxone Sodium/Dextrose 50 ml @ 50 mls/hr DAILY@2100 IV 03/28/24 21:20 04/01/24 20:40 50 MLS/HR Sodium Chloride 1,000 ml @ 80 mls/hr [id number] IV 03/30/24 20:15 04/01/24 20:25 80 MLS/HR Hydromorphone HCl 0.4 mg Q4HPRN PRN IV 03/30/24 23:00 04/01/24 22:18 0.4 MG Hydromorphone HCl 0.6 mg Q4HPRN PRN IV 03/30/24 23:00 04/01/24 14:41 0.6 MG objective GENERAL: Awake, alert, oriented. LUNGS: Clear. CARDIOVASCULAR: Heart sounds are good. ABDOMEN: Soft. RUQ TTP. laboratory and microbiology Laboratory Tests 04/02/24 07:17 Test 04/02/24 07:17 Range/Units Serum Glucose 80 74-106 mg/dL Problem List Acute RUQ abdominal pain. Acute cholecystitis. Recent history of choledocholithiasis and obstructive jaundice. Status post percutaneous transhepatic biliary drainage. Hypovolemia. Right CVA with left-sided hemiparesis. Diabetes. Hypertension. Noncompliance with medical recommendations. Assessment/Plan Continued all current supportive medical care. Aspirin, Lipitor. IV antibiotics as ordered. Dilaudid for pain management. Additional plan as per the hospital course. Critical care time of 45 minutes provided to include time spent evaluation of patient at bedside, when appropriate patient/family education for diagnosis, treatment plan, review of pertinent medical information and discussion of care with specialty providers and PCP. Plan discussed with: Patient ANITRA HOOD MD Apr 02, 2024 12:12
[2024-04-02] MEDS ORDERED: ceFAZolin 2 GM/D5W50ml 50 ML IV SCH (22:00)
--- NOTE | 2024-04-02 22:26 | DVHPN2 ---
Consult Progress Note Date Seen: Apr 01, 2024 Subjective Patient reports: Other (did not go to surgery yesterday and said he got MRPC done , still having abdominal pain and tachycardia, with a tender abdomen and has guarding ) Objective vital signs Vital Sign Date Time Temp Pulse Resp B/P (MAP) Pulse Ox O2 Delivery O2 Flow Rate FiO2 04/02/24 20:30 108 14 123/69 (87) 94 04/02/24 19:15 98.8 98.8 04/02/24 13:55 Room Air 0 04/02/24 08:20 21 Total Intake and Output 04/01/24 04/01/24 04/02/24 15:00 23:00 07:00 Intake Total 100 ml 745 ml 0 ml Output Total 550 ml 400 ml Balance 100 ml 195 ml -400 ml medications Current Medications Medications Dose Ordered Sig/Aruna Route Start Time Stop Time Status Last Admin Dose Admin Atorvastatin Calcium 40 mg HS PO 03/28/24 22:00 04/02/24 21:49 40 MG Aspirin 81 mg DAILY PO 03/29/24 10:00 03/31/24 13:22 81 MG Diagnostic Test (Pha) 1 strip ACHS 03/28/24 22:00 04/02/24 19:07 1 STRIP Insulin Human Regular HS SC 03/28/24 22:00 03/31/24 23:10 3 UNITS Insulin Human Regular AC SC 03/29/24 07:00 04/02/24 19:10 3 UNITS Dextrose 50 ml UD PRN IV 03/28/24 18:15 Nitroglycerin 0.4 mg Q5MINP PRN SL 03/28/24 18:30 Ceftriaxone Sodium/Dextrose 50 ml @ 50 mls/hr DAILY@2100 IV 03/28/24 21:20 04/02/24 21:48 50 MLS/HR Hydromorphone HCl 0.4 mg Q4HPRN PRN IV 03/30/24 23:00 04/02/24 19:05 0.4 MG Hydromorphone HCl 0.6 mg Q4HPRN PRN IV 03/30/24 23:00 Hold 04/01/24 14:41 0.6 MG Potassium Chloride/Dextrose/ Sod Cl 1,000 ml @ 120 mls/hr Q8H20M IV 04/02/24 14:30 04/02/24 21:45 120 MLS/HR Metronidazole 100 ml @ 100 mls/hr Q8HR IV 04/02/24 22:00 Hydromorphone HCl 1 mg Q3HPRN PRN IV 04/02/24 14:30 Ondansetron HCl 4 mg Q4HPRN PRN IV 04/02/24 14:30 Pantoprazole Sodium 40 mg DAILY IV 04/02/24 18:00 04/02/24 19:21 40 MG Physical Exam: - General: NAD - Neck: Supple. No masses. - HEENT: PERRL. Normal lids and conjunctiva. Moist mucous membranes. Oropharynx without lesions, exudates, or excessive erythema. Normal appearance of the external aspects of the nose and ears. - Heart: Regular rhythm, normal rate. No murmur. No lower extremity edema. - Lungs: Normal respiratory effort. Clear to auscultation bilaterally. No wheezes. No crackles. - Abdomen: Mildly distended. Tenderness in the right upper quadrant with guarding. No masses or abdominal hernia. - MSK: No digital cyanosis. Open, non-draining foot wounds status post multiple debridements. Normal strength and tone in all 4 limbs. - Skin: Warm and dry. Rash noted. - Neuro: Alert. No facial droop or slurred speech. Extraocular movements intact. Sensation intact to soft touch in all 4 limbs. - Psych: Appropriate mood. Full affect. Oriented to person, place, time, and situation. laboratory and microbiology Laboratory Tests 04/02/24 07:17 Test 04/02/24 07:17 Range/Units Serum Glucose 80 74-106 mg/dL Problem List/Assessment/Plan Problems(with codes): (1) Hypotension (2) Abdominal pain (3) Sepsis (4) Diabetes (5) Acute cholecystitis Problem List/Assessment/Plan ID Problem List: - Cerebrovascular accident with left hand paresis - Bed confined - Uncontrolled diabetes mellitus - Hypercholesterolemia - Hypertension - Paroxysmal atrial fibrillation - Cholelithiasis - Cholecystitis - Recent right MCA stroke with mid-cervical occlusion of right ICA - Necrotic infections of bilateral feet, status post multiple debridements Assessment This is a 68 y.o. male with a past medical history of cerebrovascular accident with left hand paresis, uncontrolled diabetes mellitus, hypercholesterolemia, hypertension, paroxysmal atrial fibrillation on Eliquis, recent right MCA stroke with mid-cervical occlusion of the right internal carotid artery, and status post coronary artery bypass graft several years ago, who presents with right upper quadrant pain, obstructive jaundice, and failure to thrive. The patient has been experiencing intermittent right upper quadrant pain and obstructive jaundice. He previously underwent percutaneous transhepatic biliary drainage at [facility] several weeks ago (records pending). Currently, he exhibits poor appetite, significant weight loss, and signs of acute cholecystitis. Vital signs are notable for fever (Tmax 101.5F) and tachycardia. Physical examination reveals right upper quadrant tenderness with guarding, mildly distended abdomen, rash, and open, non-draining foot wounds status post multiple debridements. Laboratory studies show leukocytosis (WBC 11.7 K/L) and elevated creatinine (1.56 mg/dL). Imaging studies are consistent with acute cholecystitis and stercoral colitis. 04/01: whitecount is 10.4 , patients MRPC shows no intro or extra hepatic biliary ductal dilation , no MRI evidence of chololithiasis , gallbladder wall thickening suggest acute cholecystitis . abdominal ultrasound shows cholelithiasis Plan: - Continue ceftriaxone and azithromycin empirically. - Patient is scheduled for urgent laparoscopic cholecystectomy. - Agree with this plan. - Ensure any necrotic specimens or infected inflammatory tissue are cultured and sent to pathology. - Monitor vital signs and laboratory markers closely. - Assess and manage foot wounds; consider obtaining cultures if signs of infection are present. - Obtain previous medical records from [facility]. - Maintain hydration and electrolyte balance. - Manage blood glucose levels to optimize glycemic control. - Continue home medications: atorvastatin, aspirin, and Eliquis. Isolation Precautions: Standard Plan discussed with: TRENT Acosta MD Apr 02, 2024 22:25
[2024-04-02] MEDS: HYDROMORPHONE HCL 1 MG/ML INJ IV PRN (22:50)
[2024-04-02] MEDS: metroNIDAZOLE 500MG/100ML 100 ML IV SCH (23:21)
[2024-04-03] VITALS (75 sets, daily range): BP systolic 82–124; BP diastolic 44–75; PULSE 84–114; RESP 10–20; TEMP 97.4–99.5; O2SAT 90–100
--- NOTE | 2024-04-03 00:02 | DVHPN2 ---
Progress Note - Dictate Date Seen: Apr 02, 2024 Has the PT tested + for MRSA If YES, has PT been informed?: No Medical Necessity Reason Pt with a Central, PICC or Fol: No Medical Necessity Reason Laparoscopic cholecystectomy Incision and drainage of abscess Evacuation of biloma Lysis of adhesions Subjective The patient reports of postsurgical pains from receiving laparoscopic Cholecystectomy, education of biloma, drainage abscess and lysis of adhesions Postoperatively patient has been transferred to ICU for intensive care * Currently continued on IV fluids and IV antibiotics * Receives parenteral analgesics for pain management * Currently followed by Dr. Vinnie mckeon from General surgery, Dr. Adriel Mcarthur cardiology and Dr. Raul barroso infectious Disease Overnight events are reviewed through medical chart and case discussion with patient's assigned RN while making rounds on patient on the day of service vital signs Vital Sign Date Time Temp Pulse Resp B/P (MAP) Pulse Ox O2 Delivery O2 Flow Rate FiO2 04/02/24 23:20 99 14 108/59 04/02/24 20:30 94 04/02/24 19:15 98.8 98.8 04/02/24 13:55 Room Air 0 04/02/24 08:20 21 Total Intake and Output 04/01/24 04/01/24 04/02/24 15:00 23:00 07:00 Intake Total 100 ml 745 ml 0 ml Output Total 550 ml 400 ml Balance 100 ml 195 ml -400 ml medications Current Medications Medications Dose Ordered Sig/Aruna Route Start Time Stop Time Status Last Admin Dose Admin Atorvastatin Calcium 40 mg HS PO 03/28/24 22:00 04/02/24 21:49 40 MG Aspirin 81 mg DAILY PO 03/29/24 10:00 03/31/24 13:22 81 MG Diagnostic Test (Pha) 1 strip ACHS 03/28/24 22:00 04/02/24 22:42 1 STRIP Insulin Human Regular HS SC 03/28/24 22:00 04/02/24 22:42 3 UNITS Insulin Human Regular AC SC 03/29/24 07:00 04/02/24 19:10 3 UNITS Dextrose 50 ml UD PRN IV 03/28/24 18:15 Nitroglycerin 0.4 mg Q5MINP PRN SL 03/28/24 18:30 Ceftriaxone Sodium/Dextrose 50 ml @ 50 mls/hr DAILY@2100 IV 03/28/24 21:20 04/02/24 21:48 50 MLS/HR Hydromorphone HCl 0.4 mg Q4HPRN PRN IV 03/30/24 23:00 04/02/24 19:05 0.4 MG Hydromorphone HCl 0.6 mg Q4HPRN PRN IV 03/30/24 23:00 Hold 04/01/24 14:41 0.6 MG Potassium Chloride/Dextrose/ Sod Cl 1,000 ml @ 120 mls/hr Q8H20M IV 04/02/24 14:30 04/02/24 21:45 120 MLS/HR Metronidazole 100 ml @ 100 mls/hr Q8HR IV 04/02/24 22:00 04/02/24 23:21 100 MLS/HR Hydromorphone HCl 1 mg Q3HPRN PRN IV 04/02/24 14:30 04/02/24 22:50 1 MG Ondansetron HCl 4 mg Q4HPRN PRN IV 04/02/24 14:30 Pantoprazole Sodium 40 mg DAILY IV 04/02/24 18:00 04/02/24 19:21 40 MG objective Physical Exam General appearance: Well-developed, well-nourished middle-aged male Reports post surgical pains, noted drowsy but awakenable Head: Normocephalic nontraumatic Eyes: EOMI, ALIE, sclera nonicteric, conjunctive- pale ENT: No congestion, NSL bilateral symmetrical, oral mucosa wet Neck: Supple, carotid upstroke +2, trachea midline, JVD 2 cm No goiter/stridor, no lymph nodes JVD-3 cm, C spine- Full ROM No use of sternomastoid muscle Chest: Bilateral symmetrical expansions, no costochondral tenderness Lungs: clear breath sounds all over except reduced at bases CVS: PMI-1 cm medial to L MCL in fifth ICS , S1-S2 NSR no S3 GI: Abdomen soft, obese, bowel sounds hypoactive RUQ-postsurgical wound -feels tender, stain with sanguinous fluid, GLORIA drain-sanguinous discharge RUQ tenderness, no rebound tenderness No hepatosplenomegaly, no mass no hernia , : No CVA tenderness, no bladder mass palpable, genitalia-NE SKIN: Turgor dry, color pink, no rash, no icterus, No varicosity, no ulcers or wounds EXTs: No edema, color pink, no rash, no ecchymosis distal pulses +2 capillary refill <2 seconds, No open wounds JOINTS; full range of motion BACK: No apparent lumbosacral spinal muscle tenderness, LYMPH NODES: No cervical, axillary or inguinal lymph nodes Neuro: Drowsy but awakenable, speech nonfluent expressive aphasia Left-sided hemiparesis motor strength three to 4/5 Sensory-changes of DPN as before PSYCH: Affect mildly depressed-denies suicidal ideation laboratory and microbiology Laboratory Tests 04/02/24 07:17 Test 04/02/24 07:17 Range/Units Serum Glucose 80 74-106 mg/dL Problem List 1. Acute cholecystitis Complicated by biloma, abscess and adhesions Status post laparoscopy Evacuation of biloma, drainage of abscess and lysis of adhesions 2. R CVA with left-sided hemiparesis a. R ICA occlusion 3. Fairly well-controlled diabetes and hypertension 2' Diagnosis/Comorbidities Noncompliance with medical recommendations Doppler lower Assessment/Plan Medical decision making The patient seems to have tolerated laparoscopic cholecystectomy,evacuation of biloma, abscess and lysis of adhesions * Patient reports all postsurgical pains-receives parenteral analgesics * Continued on IV hydration and IV antibiotics-Rocephin and Flagyl * Currently followed by Dr. Raul Barroso as Infectious Disease * Followed by Vinnie Nunez from General surgery * Followed by Dr. Adriel Mcarthur from Cardiology * The patient has been admitted to ICU for intensive care Treatment Plans Admit patient to ICU Continue IV hydration Continue parenteral analgesics for postsurgical pains Continue IV Rocephin and Flagyl Reviewed input of Dr. Vinnie Marin and operative report Reviewed input of Dr. Raul Barroso infectious disease and Dr. Adriel Mcarthur Cardiology Blood cultures p.r.n. temp 101.5 x3 Reviewed input of [facility]-GI consult Reconciled home meds VTE precautions Update patient The patient and and his were well informed by me about 1. Clinical impression, treatment plans, side effects of medications, course of the disease and guarded prognosis 2. All patient's question/ concerns raised by patient are satisfactorily addressed by me Total time spent 60 minutes 40% of time spent interviewing the patient and physical exam 30% of time spent in gathering lab datas and imaging studies 30 % of time is spent in patient education Prognosis Fair Dietary Evaluation Review Recommendations by RD: Dietary education by RD Plan discussed with: Spouse Total Time (mins): 60 ALLA BARROSO MD Apr 03, 2024 00:02
[2024-04-03 05:30] LABS: Basophils # (auto) 0.1 10 ^3/uL (0-0.2); Basophils % (auto) 0.3 % (0.0-2.0); Eosinophils # (auto) 0 10 ^3/uL (0-0.8); Hemoglobin 11.4 g/dL (13.5-17.5); Lymphocytes # (auto) 1.4 10 ^3/uL (0.4-5.4); Lymphocytes % (auto) 8.5 % (10.0-50.0); Mean Corpuscular Hemoglobin 29.9 pg (28.0-32.0); Mean Corpuscular Hgb Conc. 33.5 g/dL (32.0-36.0); Mean Corpuscular Volume 89.1 fL (80.0-100.0); Monocytes # (auto) 0.8 10 ^3/uL (0-1.3); Monocytes % (auto) 4.7 % (0.0-12.0); Neutrophils # (auto) 14.4 10 ^3/uL (1.6-8.6); Neutrophils % (auto) 86.5 % (37.0-80.0); Platelet Count (auto) 336 10^3/uL (140-450); Red Blood Cells 3.82 10^6/uL (4.5-5.90); Red Cell Distribution Width 13.6 % (11.8-14.3); White Blood Cell 16.6 10^3/uL (4.4-10.8)
[2024-04-03 05:46] LABS: Albumin 4.1 g/dL (3.2-4.8); Anion Gap 8 (5-15); BUN/Creatinine Ratio 17.6 (10.0-20.0); Blood Urea Nitrogen 12 mg/dL (9-23); Calcium 9.6 mg/dL (8.7-10.4); Carbon Dioxide 26 mmol/L (20-31); Chloride 105 mmol/L (98-107); Potassium 4.6 mmol/L (3.5-5.1); Sodium 139 mmol/L (136-145)
[2024-04-03 05:47] LABS: Total Protein 6.3 g/dL (5.7-8.2)
[2024-04-03 05:51] LABS: Alanine Aminotransferase 74 U/L (7-40); Alkaline Phosphatase 166 U/L (46-116); Aspartate Aminotransferase 74 U/L (13-40); Bilirubin, Total 0.3 mg/dL (0.2-1.0); Glucose 231 mg/dL (74-106)
--- NOTE | 2024-04-03 11:45 | DVHPN2 ---
Progress Note Date Seen: Apr 03, 2024 Resident Creating Document: ENRIQUE YORK RESIDENT Has the PT tested + for MRSA If YES, has PT been informed?: No Medical Necessity Reason Pt with a Central, PICC or Fol: No Subjective Review of Systems Patient was seen and examined on the bedside. He is alert oriented x3. Today is S/P laparoscopic cholecystectomy with evacuation of right upper quadrant biloma ,abscess and myriad of small black gallstones with 2 GLORIA drain, day 1. The patient is tolerating liquid diet and mentioned passing flatus and also right upper quadrant pain especially around the incision site. 24 hours GLORIA drain collection were 250 ml and 125 ml simultaneously. Objective vital signs Vital Sign Date Time Temp Pulse Resp B/P (MAP) Pulse Ox O2 Delivery O2 Flow Rate FiO2 04/03/24 11:00 91 112/56 (74) 99 04/03/24 08:00 12 Room Air* 0 21 04/03/24 08:00 98.7 98.7 Total Intake and Output 04/02/24 04/02/24 04/03/24 15:00 23:00 07:00 Intake Total 100 ml 554 ml 1840 ml Output Total 125 ml 800 ml 1460 ml Balance -25 ml -246 ml 380 ml medications Current Medications Medications Dose Ordered Sig/Aruna Route Start Time Stop Time Status Last Admin Dose Admin Atorvastatin Calcium 40 mg HS PO 03/28/24 22:00 04/02/24 21:49 40 MG Aspirin 81 mg DAILY PO 03/29/24 10:00 03/31/24 13:22 81 MG Diagnostic Test (Pha) 1 strip ACHS 03/28/24 22:00 04/03/24 06:30 1 STRIP Insulin Human Regular HS SC 03/28/24 22:00 04/02/24 22:42 3 UNITS Insulin Human Regular AC SC 03/29/24 07:00 04/03/24 06:30 6 UNITS Dextrose 50 ml UD PRN IV 03/28/24 18:15 Nitroglycerin 0.4 mg Q5MINP PRN SL 03/28/24 18:30 Ceftriaxone Sodium/Dextrose 50 ml @ 50 mls/hr DAILY@2100 IV 03/28/24 21:20 04/02/24 21:48 50 MLS/HR Hydromorphone HCl 0.4 mg Q4HPRN PRN IV 03/30/24 23:00 04/03/24 06:33 0.4 MG Hydromorphone HCl 0.6 mg Q4HPRN PRN IV 03/30/24 23:00 Hold 04/01/24 14:41 0.6 MG Potassium Chloride/Dextrose/ Sod Cl 1,000 ml @ 120 mls/hr Q8H20M IV 04/02/24 14:30 04/03/24 06:39 120 MLS/HR Metronidazole 100 ml @ 100 mls/hr Q8HR IV 04/02/24 22:00 04/03/24 05:21 100 MLS/HR Hydromorphone HCl 1 mg Q3HPRN PRN IV 04/02/24 14:30 04/03/24 04:44 1 MG Ondansetron HCl 4 mg Q4HPRN PRN IV 04/02/24 14:30 Pantoprazole Sodium 40 mg DAILY IV 04/02/24 18:00 04/02/24 19:21 40 MG Examination Physical examination: General Appearance: Alert, Oriented X3, Cooperative, mild distress HEENT: Atraumatic, PERRLA, EOMI, Mucous membrane moist/pink Respiratory: Clear to auscultation, Normal air movement Cardiovascular: Regular rate, Normal S1, Normal S2, No murmurs, no chest wall tenderness Abdominal: Normal bowel sounds, Soft, tenderness around the incision site, no oozing and no sign of infection, No hepatospenomegaly, No masses Extremities: No clubbing, No cyanosis, No edema, Normal pulses, No tenderness/swelling Skin: No rashes, No breakdown, No significant lesion Neuro: Normal gait, Normal speech, Strength at 5/5 X4 ext, Normal tone, Sensation intact, Cranial nerves 3-12 NL, Reflexes 2+ Psych/Mental Status: Mental status NL, Mood NL laboratory and microbiology Laboratory Tests 04/03/24 05:07 Test 04/03/24 05:07 Range/Units Serum Glucose 231 #H 74-106 mg/dL Microbiology Date/Time Source Procedure Growth Status 04/02/24 13:00 Gallbladder Fluid Anaerobic Culture Pending Resulted 04/02/24 13:00 Gallbladder Fluid Aerobic Culture - Preliminary Resulted 03/28/24 21:20 Nose MRSA Screen - Final Complete Labs and/or images reviewed: Labs reviewed by me, Image(s) reviewed by me Problem List/Assessment/Plan Problem List/Assessment/Plan Assessment: # S/P Laparoscopy, evacuation of right upper quadrant biloma and abscess evacuation of myriad of small black gallstones, cholecystectomy, day 1 # Right upper quadrant pain likely secondary to acute cholecystitis # acute cholecystitis with cholelithiasis # s/p percutaneous transhepatic biliary drainage # Transaminitis without hyperbilirubinemia # History of obstructive jaundice with choledocholithiasis # History of CVA with left-sided hemiparesis Plan: - Clear liquid diet - Continue tube feeding /TPN - continue IV antibiotic as per primary team - Follow surgical recommendation regarding advancement of diet and clearance for discharge. - monitor liver enzymes and bilirubin Plan discussed with Dr. Henley Plan discussed with: Patient, Other ENRIQUE YORK RESIDENT Apr 03, 2024 11:45
--- NOTE | 2024-04-03 12:51 | DVHPN2 ---
Consult Progress Note Date Seen: Apr 02, 2024 Subjective Patient reports: Other (underwent a laparoscopic cholesystectomy today and patient has a new drain in place and is outputting fluid , having some abdominal pain and is lethargic . ) Objective vital signs Vital Sign Date Time Temp Pulse Resp B/P (MAP) Pulse Ox O2 Delivery O2 Flow Rate FiO2 04/03/24 11:00 91 112/56 (74) 99 04/03/24 08:00 12 Room Air* 0 21 04/03/24 08:00 98.7 98.7 Total Intake and Output 04/02/24 04/02/24 04/03/24 15:00 23:00 07:00 Intake Total 100 ml 554 ml 1840 ml Output Total 125 ml 800 ml 1460 ml Balance -25 ml -246 ml 380 ml medications Current Medications Medications Dose Ordered Sig/Aruna Route Start Time Stop Time Status Last Admin Dose Admin Atorvastatin Calcium 40 mg HS PO 03/28/24 22:00 04/02/24 21:49 40 MG Aspirin 81 mg DAILY PO 03/29/24 10:00 03/31/24 13:22 81 MG Diagnostic Test (Pha) 1 strip ACHS 03/28/24 22:00 04/03/24 06:30 1 STRIP Insulin Human Regular HS SC 03/28/24 22:00 04/02/24 22:42 3 UNITS Insulin Human Regular AC SC 03/29/24 07:00 04/03/24 06:30 6 UNITS Dextrose 50 ml UD PRN IV 03/28/24 18:15 Nitroglycerin 0.4 mg Q5MINP PRN SL 03/28/24 18:30 Ceftriaxone Sodium/Dextrose 50 ml @ 50 mls/hr DAILY@2100 IV 03/28/24 21:20 04/02/24 21:48 50 MLS/HR Hydromorphone HCl 0.4 mg Q4HPRN PRN IV 03/30/24 23:00 04/03/24 06:33 0.4 MG Hydromorphone HCl 0.6 mg Q4HPRN PRN IV 03/30/24 23:00 Hold 04/01/24 14:41 0.6 MG Potassium Chloride/Dextrose/ Sod Cl 1,000 ml @ 120 mls/hr Q8H20M IV 04/02/24 14:30 04/03/24 06:39 120 MLS/HR Metronidazole 100 ml @ 100 mls/hr Q8HR IV 04/02/24 22:00 04/03/24 05:21 100 MLS/HR Hydromorphone HCl 1 mg Q3HPRN PRN IV 04/02/24 14:30 04/03/24 04:44 1 MG Ondansetron HCl 4 mg Q4HPRN PRN IV 04/02/24 14:30 Pantoprazole Sodium 40 mg DAILY IV 04/02/24 18:00 04/02/24 19:21 40 MG Physical Exam: - General: NAD - Neck: Supple. No masses. - HEENT: PERRL. Normal lids and conjunctiva. Moist mucous membranes. Oropharynx without lesions, exudates, or excessive erythema. Normal appearance of the external aspects of the nose and ears. - Heart: Regular rhythm, normal rate. No murmur. No lower extremity edema. - Lungs: Normal respiratory effort. Clear to auscultation bilaterally. No wheezes. No crackles. - Abdomen: Mildly distended. Tenderness in the right upper quadrant with guarding. No masses or abdominal hernia. - MSK: No digital cyanosis. Open, non-draining foot wounds status post multiple debridements. Normal strength and tone in all 4 limbs. - Skin: Warm and dry. Rash noted. - Neuro: Alert. No facial droop or slurred speech. Extraocular movements intact. Sensation intact to soft touch in all 4 limbs. - Psych: Appropriate mood. Full affect. Oriented to person, place, time, and situation. 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 male with a past medical history of cerebrovascular accident with left hand paresis, uncontrolled diabetes mellitus, hypercholesterolemia, hypertension, paroxysmal atrial fibrillation on Eliquis, recent right MCA stroke with mid-cervical occlusion of the right internal carotid artery, and status post coronary artery bypass graft several years ago, who presents with right upper quadrant pain, obstructive jaundice, and failure to thrive. The patient has been experiencing intermittent right upper quadrant pain and obstructive jaundice. He previously underwent percutaneous transhepatic biliary drainage at [facility] several weeks ago (records pending). Currently, he exhibits poor appetite, significant weight loss, and signs of acute cholecystitis. Vital signs are notable for fever (Tmax 101.5F) and tachycardia. Physical examination reveals right upper quadrant tenderness with guarding, mildly distended abdomen, rash, and open, non-draining foot wounds status post multiple debridements. Laboratory studies show leukocytosis (WBC 11.7 K/L) and elevated creatinine (1.56 mg/dL). Imaging studies are consistent with acute cholecystitis and stercoral colitis. 04/01: whitecount is 10.4 , patients MRPC shows no intro or extra hepatic biliary ductal dilation , no MRI evidence of chololithiasis , gallbladder wall thickening suggest acute cholecystitis . abdominal ultrasound shows cholelithiasis 04/02: per operative note patient underwent a laparoscopic cholecystectomy procedure and was found fibrinous flegmon in the right upper quadrant which consisted of trezors coils momentum loops of bowel. the inflammation was exuberant and after dissecting the momentum from the fundus of the gallbladder became obious the patient had a rupture of the gallbladder which spilled a myriad of natalya stones which was then seaaled off by this momentum and contained in the biloma and a puss collection . cultures and sensitivities were obtained . the myriad little stones were aspirated and scooped up to the best of my ability and then the gallbladder was resected by circumferentially dissecting the cystic duct and cystic artery . no attempt was made to trace the cystic duct to the common duct due to the inflammation and ligament is like adhesions and concretions . area was irrigated . patient remains normal throughout the procedure but there were no complications however the choice of laparoscopic procedure was chosen due to patient having a poor overall health Plan: - in light of perative finding recommend once blood cultures are confirmed negative for patient to get a piccline and at least 6 weeks of IV antibiotics followed by a CT scan to confirm resolution of infection - follow up with infectious disease in 4 weeks - follow up on operative cultures results and antibiotics will be determined by results - Continue ceftriaxone and azithromycin empirically. - Patient is scheduled for urgent laparoscopic cholecystectomy. - Agree with this plan. - Ensure any necrotic specimens or infected inflammatory tissue are cultured and sent to pathology. - Monitor vital signs and laboratory markers closely. - Assess and manage foot wounds; consider obtaining cultures if signs of infection are present. - Obtain previous medical records from [facility]. - Maintain hydration and electrolyte balance. - Manage blood glucose levels to optimize glycemic control. - Continue home medications: atorvastatin, aspirin, and Eliquis. Isolation Precautions: Standard Plan discussed with: TRENT Acosta MD Apr 03, 2024 12:51
[2024-04-03] MEDS ORDERED: HYDROmorphone HCL 2 MG/ML VL/or syr IV PRN ×3 (13:30→22:45)
[2024-04-03] MEDS ORDERED: DEXTROSE (50%) 50ML SYRG IV PRN ×2 (13:30→22:45)
[2024-04-03] MEDS ORDERED: NITROGLYCERIN 0.4 MG SL TAB SL PRN ×2 (13:30→22:45)
--- NOTE | 2024-04-03 14:13 | DVHPN2 ---
Progress Note - Dictate Date Seen: Apr 03, 2024 Has the PT tested + for MRSA If YES, has PT been informed?: No Medical Necessity Reason Pt with a Central, PICC or Fol: No Subjective Patient was seen and evaluated in follow up in the ICU. Patient is s/p laparoscopic cholecystectomy with evacuation of right upper quadrant biloma, abscess and myriad of small black gallstones. Patient is complaining of pain at incision site. The patient is tolerating liquid diet. WBC 16.6, AST 74,ALT 74. vital signs Vital Sign Date Time Temp Pulse Resp B/P (MAP) Pulse Ox O2 Delivery O2 Flow Rate FiO2 04/03/24 11:00 91 112/56 (74) 99 04/03/24 08:00 12 Room Air* 0 21 04/03/24 08:00 98.7 98.7 Total Intake and Output 04/02/24 04/02/24 04/03/24 15:00 23:00 07:00 Intake Total 100 ml 554 ml 1840 ml Output Total 125 ml 800 ml 1460 ml Balance -25 ml -246 ml 380 ml medications Current Medications Medications Dose Ordered Sig/Aruna Route Start Time Stop Time Status Last Admin Dose Admin Atorvastatin Calcium 40 mg HS PO 03/28/24 22:00 04/02/24 21:49 40 MG Aspirin 81 mg DAILY PO 03/29/24 10:00 03/31/24 13:22 81 MG Diagnostic Test (Pha) 1 strip ACHS 03/28/24 22:00 04/03/24 06:30 1 STRIP Insulin Human Regular HS SC 03/28/24 22:00 04/02/24 22:42 3 UNITS Insulin Human Regular AC SC 03/29/24 07:00 04/03/24 06:30 6 UNITS Dextrose 50 ml UD PRN IV 03/28/24 18:15 Nitroglycerin 0.4 mg Q5MINP PRN SL 03/28/24 18:30 Ceftriaxone Sodium/Dextrose 50 ml @ 50 mls/hr DAILY@2100 IV 03/28/24 21:20 04/02/24 21:48 50 MLS/HR Hydromorphone HCl 0.4 mg Q4HPRN PRN IV 03/30/24 23:00 04/03/24 06:33 0.4 MG Hydromorphone HCl 0.6 mg Q4HPRN PRN IV 03/30/24 23:00 Hold 04/01/24 14:41 0.6 MG Potassium Chloride/Dextrose/ Sod Cl 1,000 ml @ 120 mls/hr Q8H20M IV 04/02/24 14:30 04/03/24 06:39 120 MLS/HR Metronidazole 100 ml @ 100 mls/hr Q8HR IV 04/02/24 22:00 04/03/24 05:21 100 MLS/HR Hydromorphone HCl 1 mg Q3HPRN PRN IV 04/02/24 14:30 04/03/24 04:44 1 MG Ondansetron HCl 4 mg Q4HPRN PRN IV 04/02/24 14:30 Pantoprazole Sodium 40 mg DAILY IV 04/02/24 18:00 04/02/24 19:21 40 MG objective GENERAL: Awake, alert, oriented. LUNGS: Clear. CARDIOVASCULAR: Heart sounds are good. ABDOMEN: Soft. RUQ TTP. laboratory and microbiology Laboratory Tests 04/03/24 05:07 Test 04/03/24 05:07 Range/Units Serum Glucose 231 #H 74-106 mg/dL Problem List Acute RUQ abdominal pain. Acute cholecystitis. Recent history of choledocholithiasis and obstructive jaundice. Status post percutaneous transhepatic biliary drainage. Hypovolemia. Right CVA with left-sided hemiparesis. Diabetes. Hypertension. Noncompliance with medical recommendations. Assessment/Plan Continued all current supportive medical care. Aspirin, Lipitor. IV antibiotics as ordered. Dilaudid for pain management. Additional plan as per the hospital course. Critical care time of 45 minutes provided to include time spent evaluation of patient at bedside, when appropriate patient/family education for diagnosis, treatment plan, review of pertinent medical information and discussion of care with specialty providers and PCP. Plan discussed with: Patient ANITRA HOOD MD Apr 03, 2024 12:46
[2024-04-03] MEDS: HYDROmorphone HCL 2 MG/ML VL/or syr IV PRN (14:19)
--- NOTE | 2024-04-03 14:22 | DVHPN2 ---
Progress Note Date Seen: Apr 03, 2024 Has the PT tested + for MRSA If YES, has PT been informed?: No Medical Necessity Reason Pt with a Central, PICC or Fol: No Objective vital signs Vital Sign Date Time Temp Pulse Resp B/P (MAP) Pulse Ox O2 Delivery O2 Flow Rate FiO2 04/03/24 13:15 100 17 118/70 (86) 100 04/03/24 11:45 98.8 98.8 04/03/24 08:00 Room Air* 0 21 Total Intake and Output 04/02/24 04/02/24 04/03/24 15:00 23:00 07:00 Intake Total 100 ml 554 ml 1960 ml Output Total 125 ml 800 ml 1460 ml Balance -25 ml -246 ml 500 ml medications Current Medications Medications Dose Ordered Sig/Aruna Route Start Time Stop Time Status Last Admin Dose Admin Ceftriaxone Sodium/Dextrose 50 ml @ 50 mls/hr DAILY@2100 IV 03/28/24 21:20 04/02/24 21:48 50 MLS/HR Potassium Chloride/Dextrose/ Sod Cl 1,000 ml @ 120 mls/hr Q8H20M IV 04/02/24 14:30 04/03/24 06:39 120 MLS/HR Metronidazole 100 ml @ 100 mls/hr Q8HR IV 04/02/24 22:00 04/03/24 05:21 100 MLS/HR Ondansetron HCl 4 mg Q4HPRN PRN IV 04/02/24 14:30 Pantoprazole Sodium 40 mg DAILY IV 04/02/24 18:00 04/03/24 10:00 40 MG Atorvastatin Calcium 40 mg HS PO 04/03/24 22:00 Aspirin 81 mg DAILY PO 04/04/24 10:00 Diagnostic Test (Pha) 1 strip ACHS 04/03/24 17:00 Insulin Human Regular HS SC 04/03/24 22:00 Insulin Human Regular AC SC 04/03/24 17:00 Dextrose 50 ml UD PRN IV 04/03/24 13:30 Hydromorphone HCl 0.4 mg Q4HPRN PRN IV 04/03/24 13:30 Hydromorphone HCl 0.8 mg Q4HPRN PRN IV 04/03/24 13:30 Nitroglycerin 0.4 mg Q5MINP PRN SL 04/03/24 13:30 laboratory and microbiology Laboratory Tests 04/03/24 05:07 Test 04/03/24 05:07 Range/Units Serum Glucose 231 #H 74-106 mg/dL Problem List/Assessment/Plan Problem List/Assessment/Plan 04/02/24 patients persistent complaint of abdominal pain , we will proceed with emergent operation , Laparoscopic possibly open cholecystectomy 04/03/24 abdomen soft, non distended, GLORIA drains 1 has serous fluid and the other bile fluid, wounds clean dry and intact, continue current treatment Plan discussed with: Patient, Other (Dr. Marin ) LAMAR CHOE INDUSTRIAL SWEEPER CLEANER Apr 03, 2024 14:22
[2024-04-03] MEDS: ACCU-CHEK COMFORT CURVE STRIP VI SCH (17:54)
[2024-04-03] MEDS: InsuLIN REG 1unit/0.01ml Soln (100units/ml) SC SCH (17:59)
[2024-04-03] MEDS ORDERED: InsuLIN REG 1unit/0.01ml Soln (100units/ml) SC SCH (22:00)
[2024-04-03] MEDS: ATORVASTATIN 20 MG TAB PO SCH (22:21)
[2024-04-03] MEDS: D5W/SOD CHL 0.45%/KCL 20MEQ 1,000 ML IV SCH (22:45)
[2024-04-03] MEDS ORDERED: ONDANSETRON HCL 4 MG/2 ML VIAL IV PRN (22:45)
[2024-04-03] MEDS ORDERED: PIPERACILLIN-TAZOB 3.375GM 100 ML IV SCH (23:15)
[2024-04-04] VITALS (50 sets, daily range): BP systolic 92–127; BP diastolic 50–82; PULSE 88–151; RESP 11–20; TEMP 98.3–99.5; O2SAT 97–100
--- NOTE | 2024-04-04 00:05 | DVHPN2 ---
Progress Note - Dictate Date Seen: Apr 03, 2024 Has the PT tested + for MRSA If YES, has PT been informed?: No Medical Necessity Reason Pt with a Central, PICC or Fol: No Medical Necessity Reason Postoperative day one post Surgical pains IV antibiotics Subjective The patient reports to have postsurgical pains from receiving laparoscopic Cholecystectomy, education of biloma, drainage abscess and lysis of adhesions 24 hours ago Postoperatively patient has been transferred to ICU for intensive care * Currently receives IV fluids and IV antibiotics * Receives parenteral analgesics for pain management * Currently followed by Dr. Vinnie acosta from General surgery, Dr. Adriel Mcarthur cardiology and Dr. Raul Barroso infectious Disease Overnight events are reviewed through medical chart and case discussion with patient's assigned RN while making rounds on patient on the day of service vital signs Vital Sign Date Time Temp Pulse Resp B/P (MAP) Pulse Ox O2 Delivery O2 Flow Rate FiO2 04/03/24 22:22 107 17 126/63 04/03/24 21:30 100 04/03/24 20:00 98.6 98.6 04/03/24 20:00 Room Air* 0 21 Total Intake and Output 04/03/24 04/03/24 04/04/24 15:00 23:00 07:00 Intake Total 1010 ml 670 ml Output Total 1500 ml Balance 1010 ml -830 ml medications Current Medications Medications Dose Ordered Sig/Aruna Route Start Time Stop Time Status Last Admin Dose Admin Ceftriaxone Sodium/Dextrose 50 ml @ 50 mls/hr DAILY@2100 IV 04/04/24 21:00 Cancel Potassium Chloride/Dextrose/ Sod Cl 1,000 ml @ 120 mls/hr Q8H20M IV 04/03/24 22:45 Metronidazole 100 ml @ 100 mls/hr Q8HR IV 04/04/24 06:00 Cancel Ondansetron HCl 4 mg Q4HPRN PRN IV 04/03/24 22:45 Pantoprazole Sodium 40 mg DAILY IV 04/04/24 10:00 Atorvastatin Calcium 40 mg HS PO 04/04/24 22:00 Aspirin 81 mg DAILY PO 04/04/24 10:00 Diagnostic Test (Pha) 1 strip ACHS 04/04/24 07:00 Insulin Human Regular HS SC 04/04/24 22:00 Insulin Human Regular AC SC 04/04/24 07:00 Dextrose 50 ml UD PRN IV 04/03/24 22:45 Hydromorphone HCl 0.4 mg Q4HPRN PRN IV 04/03/24 22:45 Hydromorphone HCl 0.8 mg Q4HPRN PRN IV 04/03/24 22:45 Nitroglycerin 0.4 mg Q5MINP PRN SL 04/03/24 22:45 Piperacillin Sod/ Tazobactam Sod 100 ml @ 25 mls/hr Q8HR IV 04/03/24 23:15 objective Physical Exam General appearance: Well-developed, well-nourished middle-aged male Noted drowsy but awakenable, Reports post surgical pains Head: Normocephalic nontraumatic Eyes: EOMI, ALIE, sclera nonicteric, conjunctive- pale ENT: No congestion, NSL bilateral symmetrical, oral mucosa wet Neck: Supple, carotid upstroke +2, trachea midline, JVD 2 cm No goiter/stridor, no lymph nodes JVD-3 cm, C spine- Full ROM No use of sternomastoid muscle Chest: Bilateral symmetrical expansions, no costochondral tenderness Lungs: clear breath sounds all over except reduced at bases CVS: PMI-1 cm medial to L MCL in fifth ICS , S1-S2 NSR no S3 GI: Abdomen soft, obese, bowel sounds hypoactive RUQ-postsurgical wound -feels tender, stain with sanguinous fluid, GLORIA drain-sanguinous discharge RUQ tenderness, no rebound tenderness No hepatosplenomegaly, no mass no hernia , : No CVA tenderness, no bladder mass palpable, genitalia-NE SKIN: Turgor dry, color pink, no rash, no icterus, No varicosity, no ulcers or wounds EXTs: No edema, color pink, no rash, no ecchymosis distal pulses +2 capillary refill <2 seconds, No open wounds JOINTS; full range of motion BACK: No apparent lumbosacral spinal muscle tenderness, LYMPH NODES: No cervical, axillary or inguinal lymph nodes Neuro: Drowsy but awakenable, speech nonfluent expressive aphasia Left-sided hemiparesis motor strength three to 4/5 Sensory-changes of DPN as before PSYCH: Affect mildly depressed-denies suicidal ideation laboratory and microbiology Laboratory Tests 04/03/24 05:07 Test 04/03/24 05:07 Range/Units Serum Glucose 231 #H 74-106 mg/dL Problem List 1. Status post laparoscopy Evacuation of biloma, drainage of abscess and lysis of adhesions 2. Status post Acute cholecystitis Complicated by biloma, abscess and adhesions 3. R CVA with left-sided hemiparesis a. R ICA occlusion 4. Fairly well-controlled diabetes and hypertension 2' Diagnosis/Comorbidities Noncompliance with medical recommendations Doppler lower Assessment/Plan Medical decision making The patient remains symptomatic for postsurgical due to laparoscopic cholecystectomy, evacuation of biloma, abscess and lysis of adhesions * Noted serosanguineous drainage GLORIA drain in amount of 250 ml * Receives IV Dilaudid for postsurgical * Continued on IV hydration and IV antibiotics-Rocephin and Flagyl * Patient remains hemodynamically stable and afebrile * Currently followed by Dr. Raul Barroso as Infectious Disease * Followed by Vinnie Nunez from General surgery * Followed by Dr. Adriel Mcarthur from Cardiology * The patient has been admitted to ICU for intensive care Treatment Plans Admit patient to ICU Continue IV hydration Continue parenteral analgesics for postsurgical pains Continue IV Rocephin and Flagyl Reviewed input of Dr. Vinnie Acosta and operative report Reviewed input of Dr. Raul Barroso infectious disease and Dr. Adriel Mcarthur Cardiology Blood cultures p.r.n. temp 101.5 x3 Reviewed input of PHLEBOTOMY INSTRUCTOR-GI consult Reconciled home meds VTE precautions Update patient The patient and and his were well informed by me about 1. Clinical impression, treatment plans, side effects of medications, course of the disease and guarded prognosis 2. All patient's question/ concerns raised by patient are satisfactorily addressed by me Total time spent 60 minutes 40% of time spent interviewing the patient and physical exam 30% of time spent in gathering lab datas and imaging studies 30 % of time is spent in patient education Dietary Evaluation Review Recommendations by RD: Dietary education by RD Comments: 1. Recommend timely diet advancement to Low Fat diet s/p cholecystectomy 2. May consider Ensure Clear supplements TID in the interim appropriate for current diet order to optimize nutrition (250 kcal, 8 gm pro, 0 gm fat/carton) 3. Consulted for TPN/EN: TPN is not clinically indicated at this time due to functional GI tract; should nutrition support be desired, would recommend tube feeding with peptide-based, hydrolyzed formula for improved tolerance - however, advise oral diet trial prior to initiating nutrition support measures Expected Outcomes/Goals: Diet advancement, improved nutritional status, post-op healing Plan discussed with: Spouse Total Time (mins): 60 ALAL BARROSO MD Apr 04, 2024 00:05
[2024-04-04] MEDS: D5W/SOD CHL 0.45%/KCL 20MEQ 1,000 ML IV SCH (00:15)
[2024-04-04] MEDS: PIPERACILLIN-TAZOB 3.375GM 100 ML IV SCH (01:07)
[2024-04-04] MEDS: HYDROmorphone HCL 2 MG/ML VL/or syr IV PRN ×2 (03:51→09:41)
[2024-04-04 05:15] LABS: Basophils # (auto) 0 10 ^3/uL (0-0.2); Basophils % (auto) 0.3 % (0.0-2.0); Eosinophils # (auto) 0.1 10 ^3/uL (0-0.8); Eosinophils % (auto) 0.5 % (0.0-7.0); Hematocrit 32.5 % (41.0-53.0); Hemoglobin 10.9 g/dL (13.5-17.5); Lymphocytes # (auto) 2.1 10 ^3/uL (0.4-5.4); Lymphocytes % (auto) 15.7 % (10.0-50.0); Mean Corpuscular Hemoglobin 29.8 pg (28.0-32.0); Mean Corpuscular Hgb Conc. 33.5 g/dL (32.0-36.0); Mean Corpuscular Volume 88.9 fL (80.0-100.0); Monocytes # (auto) 0.9 10 ^3/uL (0-1.3); Monocytes % (auto) 6.4 % (0.0-12.0); Neutrophils # (auto) 10.5 10 ^3/uL (1.6-8.6); Neutrophils % (auto) 77.1 % (37.0-80.0); Platelet Count (auto) 313 10^3/uL (140-450); Red Blood Cells 3.65 10^6/uL (4.5-5.90); Red Cell Distribution Width 14.1 % (11.8-14.3); White Blood Cell 13.7 10^3/uL (4.4-10.8)
[2024-04-04 05:28] LABS: INR 1.22 (0.9-1.15); Prothrombin Time 12.7 sec (9.3-11.8)
[2024-04-04 05:30] LABS: Albumin 3.6 g/dL (3.2-4.8); Anion Gap 6 (5-15); BUN/Creatinine Ratio 9.1 (10.0-20.0); Bilirubin, Total 0.3 mg/dL (0.2-1.0); Calcium 9.2 mg/dL (8.7-10.4); Carbon Dioxide 26 mmol/L (20-31); Potassium 3.9 mmol/L (3.5-5.1); Sodium 140 mmol/L (136-145)
[2024-04-04 05:32] LABS: Alanine Aminotransferase 52 U/L (7-40); Alkaline Phosphatase 133 U/L (46-116); Aspartate Aminotransferase 44 U/L (13-40); Blood Urea Nitrogen 5 mg/dL (9-23); Chloride 108 mmol/L (98-107); Glucose 121 mg/dL (74-106); Magnesium 1.5 mg/dL (1.6-2.6); Total Protein 5.6 g/dL (5.7-8.2)
[2024-04-04] MEDS ORDERED: metroNIDAZOLE 500MG/100ML 100 ML IV SCH (06:00)
[2024-04-04] MEDS: InsuLIN REG 1unit/0.01ml Soln (100units/ml) SC SCH ×2 (06:21→22:00)
[2024-04-04] MEDS: ACCU-CHEK COMFORT CURVE STRIP VI SCH (06:22)
--- NOTE | 2024-04-04 07:58 | ECG ---
[facility] Test Date: 2024-04-04 Test Time: 02:54:40 Pat Name: ZACKERY PETTY Department: Room: 0262D A Gender: M Lace Cutter: Adriel : 1955 Requested By: ANITRA HOOD Order Number: [id number] Reading MD: Chandrakant Mina Measurements Intervals [place] Rate: 107 P: 71 [place]: 97 QRS: 10 QRSD: 78 T: 107 QT: 343 QTc: 458 Interpretive Statements Sinus tachycardia Anterior infarct, old Borderline ST elevation, lateral leads Electronically Signed On 04-04-2024 8:18:27 PST by Chandrakant Mina Please click the below link to view image of tracing.
--- NOTE | 2024-04-04 07:58 | ECG ---
[facility] Test Date: 2024-04-04 Test Time: 02:55:47 Pat Name: ZACKERY PETTY Department: Room: 0262D A Gender: M General Maintenance Helper: Adriel : 1955 Requested By: ANITRA HOOD Order Number: [id number] Reading MD: Chandrakant Mina Measurements Intervals [place] Rate: 107 P: 85 ND: 155 QRS: 10 QRSD: 81 T: 98 QT: 345 QTc: 461 Interpretive Statements Sinus tachycardia Ventricular premature complex Anterior infarct, old Electronically Signed On 04-04-2024 8:18:31 PST by Chandrakant Mina Please click the below link to view image of tracing.
[2024-04-04] MEDS: PANTOPRAZOLE 40 MG/10 ML VIAL INJ IV SCH (09:37)
[2024-04-04] MEDS: ASPirin 81 mg TAB PO SCH (09:42)
[2024-04-04] MEDS ORDERED: ASPirin 81 mg TAB PO SCH (10:00)
--- NOTE | 2024-04-04 11:57 | DVHPN2 ---
Progress Note Date Seen: Apr 04, 2024 Has the PT tested + for MRSA If YES, has PT been informed?: No Medical Necessity Reason Pt with a Central, PICC or Fol: No Subjective Patient reports: No new complaints Objective vital signs Vital Sign Date Time Temp Pulse Resp B/P (MAP) Pulse Ox O2 Delivery O2 Flow Rate FiO2 04/04/24 09:41 101 17 93/51 04/04/24 08:00 98.7 100 98.7 04/03/24 20:00 Room Air* 0 21 Total Intake and Output 04/03/24 04/03/24 04/04/24 15:00 23:00 07:00 Intake Total 1010 ml 1440 ml 1360 ml Output Total 1500 ml 2370 ml Balance 1010 ml -60 ml -1010 ml medications Current Medications Medications Dose Ordered Sig/Aruna Route Start Time Stop Time Status Last Admin Dose Admin Ceftriaxone Sodium/Dextrose 50 ml @ 50 mls/hr DAILY@2100 IV 04/04/24 21:00 Cancel Metronidazole 100 ml @ 100 mls/hr Q8HR IV 04/04/24 06:00 Cancel Ondansetron HCl 4 mg Q4HPRN PRN IV 04/03/24 22:45 Pantoprazole Sodium 40 mg DAILY IV 04/04/24 10:00 04/04/24 09:37 40 MG Atorvastatin Calcium 40 mg HS PO 04/04/24 22:00 Aspirin 81 mg DAILY PO 04/04/24 10:00 04/04/24 09:42 81 MG Diagnostic Test (Pha) 1 strip ACHS 04/04/24 07:00 04/04/24 06:22 1 STRIP Insulin Human Regular HS SC 04/04/24 22:00 Insulin Human Regular AC SC 04/04/24 07:00 04/04/24 06:21 2 UNITS Dextrose 50 ml UD PRN IV 04/03/24 22:45 Nitroglycerin 0.4 mg Q5MINP PRN SL 04/03/24 22:45 Potassium Chloride/Dextrose/ Sod Cl 1,000 ml @ 100 mls/hr Q10H IV 04/04/24 00:15 04/04/24 10:11 100 MLS/HR Hydromorphone HCl 0.4 mg Q3HPRN PRN IV 04/04/24 00:15 04/04/24 09:41 0.4 MG Hydromorphone HCl 0.8 mg Q3HPRN PRN IV 04/04/24 00:15 04/04/24 03:51 0.8 MG Piperacillin Sod/ Tazobactam Sod 100 ml @ 25 mls/hr Q8HR@0100,0900,1700 IV 04/04/24 01:00 04/04/24 09:42 25 MLS/HR laboratory and microbiology Laboratory Tests 04/04/24 04:40 Test 04/04/24 04:40 Range/Units Serum Glucose 121 #H 74-106 mg/dL Problem List/Assessment/Plan Problem List/Assessment/Plan 04/02/24 patients persistent complaint of abdominal pain , we will proceed with emergent operation , Laparoscopic possibly open cholecystectomy 04/03/24 abdomen soft, non distended, GLORIA drains 1 has serous fluid and the other bile fluid, wounds clean dry and intact, continue current treatment 04/04/24 - abdomen soft , non distended, appropriately tender, per notes 120 cc dark brown fluid from GLORIA drain, no complaints of pain , review of notes and labs , continue current treatment discussed with Dr. Marin Plan discussed with: Patient, Other (Dr. Marin) Dietary Evaluation Review Recommendations by RD: Dietary education by RD Comments: 1. Recommend timely diet advancement to Low Fat diet s/p cholecystectomy 2. May consider Ensure Clear supplements TID in the interim appropriate for current diet order to optimize nutrition (250 kcal, 8 gm pro, 0 gm fat/carton) 3. Consulted for TPN/EN: TPN is not clinically indicated at this time due to functional GI tract; should nutrition support be desired, would recommend tube feeding with peptide-based, hydrolyzed formula for improved tolerance - however, advise oral diet trial prior to initiating nutrition support measures Expected Outcomes/Goals: Diet advancement, improved nutritional status, post-op healing LAMAR CHOE NP Apr 04, 2024 11:57
--- NOTE | 2024-04-04 13:44 | DVHPN2 ---
Progress Note - Dictate Date Seen: Apr 04, 2024 Has the PT tested + for MRSA If YES, has PT been informed?: No Medical Necessity Reason Pt with a Central, PICC or Fol: No Subjective Patient was seen and evaluated in follow up in the ICU. No overnight events. Patient reports improvement in abdominal pain. Abdominal binder in place. 120 cc dark brown fluid from GLORIA drain. Patient is passing flatus. Denies having BM. WBC 13.7, AST 44, ALT 52. vital signs Vital Sign Date Time Temp Pulse Resp B/P (MAP) Pulse Ox O2 Delivery O2 Flow Rate FiO2 04/04/24 09:41 101 17 93/51 04/04/24 08:00 98.7 100 98.7 04/03/24 20:00 Room Air* 0 21 Total Intake and Output 04/03/24 04/03/24 04/04/24 15:00 23:00 07:00 Intake Total 1010 ml 1440 ml 1360 ml Output Total 1500 ml 2370 ml Balance 1010 ml -60 ml -1010 ml medications Current Medications Medications Dose Ordered Sig/Aruna Route Start Time Stop Time Status Last Admin Dose Admin Ceftriaxone Sodium/Dextrose 50 ml @ 50 mls/hr DAILY@2100 IV 04/04/24 21:00 Cancel Metronidazole 100 ml @ 100 mls/hr Q8HR IV 04/04/24 06:00 Cancel Ondansetron HCl 4 mg Q4HPRN PRN IV 04/03/24 22:45 Pantoprazole Sodium 40 mg DAILY IV 04/04/24 10:00 04/04/24 09:37 40 MG Atorvastatin Calcium 40 mg HS PO 04/04/24 22:00 Aspirin 81 mg DAILY PO 04/04/24 10:00 04/04/24 09:42 81 MG Diagnostic Test (Pha) 1 strip ACHS 04/04/24 07:00 04/04/24 06:22 1 STRIP Insulin Human Regular HS SC 04/04/24 22:00 Insulin Human Regular AC SC 04/04/24 07:00 04/04/24 06:21 2 UNITS Dextrose 50 ml UD PRN IV 04/03/24 22:45 Nitroglycerin 0.4 mg Q5MINP PRN SL 04/03/24 22:45 Potassium Chloride/Dextrose/ Sod Cl 1,000 ml @ 100 mls/hr Q10H IV 04/04/24 00:15 04/04/24 10:11 100 MLS/HR Hydromorphone HCl 0.4 mg Q3HPRN PRN IV 04/04/24 00:15 04/04/24 09:41 0.4 MG Hydromorphone HCl 0.8 mg Q3HPRN PRN IV 04/04/24 00:15 04/04/24 03:51 0.8 MG Piperacillin Sod/ Tazobactam Sod 100 ml @ 25 mls/hr Q8HR@0100,0900,1700 IV 04/04/24 01:00 04/04/24 09:42 25 MLS/HR objective GENERAL: Awake, alert, oriented. LUNGS: Clear. CARDIOVASCULAR: Heart sounds are good. ABDOMEN: Soft. RUQ TTP. laboratory and microbiology Laboratory Tests 04/04/24 04:40 Test 04/04/24 04:40 Range/Units Serum Glucose 121 #H 74-106 mg/dL Problem List Acute RUQ abdominal pain. Acute cholecystitis. Recent history of choledocholithiasis and obstructive jaundice. Status post percutaneous transhepatic biliary drainage. Hypovolemia. Right CVA with left-sided hemiparesis. Diabetes. Hypertension. Noncompliance with medical recommendations. Assessment/Plan Continued all current supportive medical care. Aspirin, Lipitor. IV antibiotics as ordered. Dilaudid for pain management. Additional plan as per the hospital course. Critical care time of 45 minutes provided to include time spent evaluation of patient at bedside, when appropriate patient/family education for diagnosis, treatment plan, review of pertinent medical information and discussion of care with specialty providers and PCP. Dietary Evaluation Review Recommendations by RD: Dietary education by RD Comments: 1. Recommend timely diet advancement to Low Fat diet s/p cholecystectomy 2. May consider Ensure Clear supplements TID in the interim appropriate for current diet order to optimize nutrition (250 kcal, 8 gm pro, 0 gm fat/carton) 3. Consulted for TPN/EN: TPN is not clinically indicated at this time due to functional GI tract; should nutrition support be desired, would recommend tube feeding with peptide-based, hydrolyzed formula for improved tolerance - however, advise oral diet trial prior to initiating nutrition support measures Expected Outcomes/Goals: Diet advancement, improved nutritional status, post-op healing Plan discussed with: Patient ANITRA HOOD MD Apr 04, 2024 11:26
--- NOTE | 2024-04-04 15:02 | DVHPN2 ---
Progress Note Date Seen: Apr 04, 2024 Resident Creating Document: ENRIQUE YORK RESIDENT Has the PT tested + for MRSA If YES, has PT been informed?: No Medical Necessity Reason Pt with a Central, PICC or Fol: No Subjective Review of Systems Patient was seen and examined on the bedside. He is alert oriented x3. Today is S/P laparoscopic cholecystectomy with evacuation of right upper quadrant biloma ,abscess and myriad of small black gallstones with 2 GLORIA drain, day 2. The patient is tolerating liquid diet and mentioned passing flatus and also right upper quadrant pain especially around the incision site. 24 hours GLORIA drain collection were 20 ml and 250 ml simultaneously. Objective vital signs Vital Sign Date Time Temp Pulse Resp B/P (MAP) Pulse Ox O2 Delivery O2 Flow Rate FiO2 04/04/24 12:00 99.1 101 13 96/72 (80) 99 99.1 04/03/24 20:00 Room Air* 0 21 Total Intake and Output 04/03/24 04/03/24 04/04/24 15:00 23:00 07:00 Intake Total 1010 ml 1440 ml 1360 ml Output Total 1500 ml 2370 ml Balance 1010 ml -60 ml -1010 ml medications Current Medications Medications Dose Ordered Sig/Aruna Route Start Time Stop Time Status Last Admin Dose Admin Ceftriaxone Sodium/Dextrose 50 ml @ 50 mls/hr DAILY@2100 IV 04/04/24 21:00 Cancel Metronidazole 100 ml @ 100 mls/hr Q8HR IV 04/04/24 06:00 Cancel Ondansetron HCl 4 mg Q4HPRN PRN IV 04/03/24 22:45 Pantoprazole Sodium 40 mg DAILY IV 04/04/24 10:00 04/04/24 09:37 40 MG Atorvastatin Calcium 40 mg HS PO 04/04/24 22:00 Aspirin 81 mg DAILY PO 04/04/24 10:00 04/04/24 09:42 81 MG Diagnostic Test (Pha) 1 strip ACHS 04/04/24 07:00 04/04/24 11:54 1 STRIP Insulin Human Regular HS SC 04/04/24 22:00 Insulin Human Regular AC SC 04/04/24 07:00 04/04/24 11:55 2 UNITS Dextrose 50 ml UD PRN IV 04/03/24 22:45 Nitroglycerin 0.4 mg Q5MINP PRN SL 2/13/25 22:45 Potassium Chloride/Dextrose/ Sod Cl 1,000 ml @ 100 mls/hr Q10H IV 04/04/24 00:15 04/04/24 10:11 100 MLS/HR Hydromorphone HCl 0.4 mg Q3HPRN PRN IV 04/04/24 00:15 04/04/24 09:41 0.4 MG Hydromorphone HCl 0.8 mg Q3HPRN PRN IV 04/04/24 00:15 04/04/24 03:51 0.8 MG Piperacillin Sod/ Tazobactam Sod 100 ml @ 25 mls/hr Q8HR@0100,0900,1700 IV 04/04/24 01:00 04/04/24 09:42 25 MLS/HR Examination Physical examination: General Appearance: Alert, Oriented X3, Cooperative, mild distress HEENT: Atraumatic, PERRLA, EOMI, Mucous membrane moist/pink Respiratory: Clear to auscultation, Normal air movement Cardiovascular: Regular rate, Normal S1, Normal S2, No murmurs, no chest wall tenderness Abdominal: Normal bowel sounds, Soft, tenderness around the incision site, no oozing and no sign of infection, No hepatospenomegaly, No masses Extremities: No clubbing, No cyanosis, No edema, Normal pulses, No tenderness/swelling Skin: No rashes, No breakdown, No significant lesion Neuro: Normal gait, Normal speech, Strength at 5/5 X4 ext, Normal tone, Sensation intact, Cranial nerves 3-12 NL, Reflexes 2+ Psych/Mental Status: Mental status NL, Mood NL laboratory and microbiology Laboratory Tests 04/04/24 04:40 Test 04/04/24 04:40 Range/Units Serum Glucose 121 #H 74-106 mg/dL Microbiology Date/Time Source Procedure Growth Status 04/02/24 17:16 Nose MRSA Screen - Final Complete 04/02/24 13:00 Gallbladder Fluid Anaerobic Culture - Preliminary Resulted 04/02/24 13:00 Aerobic Culture - Final Pseudomonas aeruginosa Enterobacter aerogenes Resulted Labs and/or images reviewed: Labs reviewed by me, Image(s) reviewed by me Problem List/Assessment/Plan Problem List/Assessment/Plan Assessment: # S/P Laparoscopy, evacuation of right upper quadrant biloma and abscess evacuation of myriad of small black gallstones, cholecystectomy, day 2 # Right upper quadrant pain likely secondary to acute cholecystitis # acute cholecystitis with cholelithiasis # s/p percutaneous transhepatic biliary drainage # Transaminitis without hyperbilirubinemia # History of obstructive jaundice with choledocholithiasis # History of CVA with left-sided hemiparesis Plan: - Clear liquid diet - Continue tube feeding /TPN - continue IV antibiotic as per primary team - Follow surgical recommendation regarding advancement of diet and clearance for discharge. - monitor liver enzymes and bilirubin Plan discussed with Dr. Henley Plan discussed with: Patient, Other Dietary Evaluation Review Recommendations by RD: Dietary education by RD Comments: 1. Recommend timely diet advancement to Low Fat diet s/p cholecystectomy 2. May consider Ensure Clear supplements TID in the interim appropriate for current diet order to optimize nutrition (250 kcal, 8 gm pro, 0 gm fat/carton) 3. Consulted for TPN/EN: TPN is not clinically indicated at this time due to functional GI tract; should nutrition support be desired, would recommend tube feeding with peptide-based, hydrolyzed formula for improved tolerance - however, advise oral diet trial prior to initiating nutrition support measures Expected Outcomes/Goals: Diet advancement, improved nutritional status, post-op healing ENRIQUE YORK RESIDENT Apr 04, 2024 15:02
[2024-04-04] MEDS ORDERED: cefTRIAXone 2GM/50ML D5W 50 ML IV SCH (21:00)
[2024-04-04] MEDS: ATORVASTATIN 20 MG TAB PO SCH (22:18)
[2024-04-05] VITALS (44 sets, daily range): BP systolic 96–124; BP diastolic 41–80; PULSE 82–119; RESP 14–24; TEMP 98–99; O2SAT 93–100
--- NOTE | 2024-04-05 00:10 | DVHPN2 ---
Progress Note - Dictate Date Seen: Apr 04, 2024 Has the PT tested + for MRSA If YES, has PT been informed?: No Medical Necessity Reason Pt with a Central, PICC or Fol: No Medical Necessity Reason Postoperative care IV antibiotics Parenteral analgesics Subjective The patient is seen at ICU Bed 262 He reports to have some recovery from postsurgical pains due to laparoscopic Cholecystectomy, evacuation of biloma, drainage abscess and lysis of adhesions * Remains hemodynamically stable and afebrile * Currently receives IV fluids and IV antibiotics * Receives parenteral analgesics for pain management * Currently followed by Dr. Vinnie acosta from General surgery, Dr. Adriel Mcarthur cardiology and Dr. Raul Barroso infectious Disease Overnight events are reviewed through medical chart and case discussion with patient's assigned RN while making rounds on patient on the day of service vital signs Vital Sign Date Time Temp Pulse Resp B/P (MAP) Pulse Ox O2 Delivery O2 Flow Rate FiO2 04/04/24 19:30 102 16 100 04/04/24 16:00 99.2 99.2 04/04/24 08:00 Room Air* 0 21 Total Intake and Output 04/04/24 04/04/24 04/05/24 15:00 23:00 07:00 Intake Total 900 ml 900 ml Output Total 3000 ml Balance 900 ml -2100 ml medications Current Medications Medications Dose Ordered Sig/Aruna Route Start Time Stop Time Status Last Admin Dose Admin Ceftriaxone Sodium/Dextrose 50 ml @ 50 mls/hr DAILY@2100 IV 04/04/24 21:00 Cancel Metronidazole 100 ml @ 100 mls/hr Q8HR IV 04/04/24 06:00 Cancel Ondansetron HCl 4 mg Q4HPRN PRN IV 04/03/24 22:45 Pantoprazole Sodium 40 mg DAILY IV 04/04/24 10:00 04/04/24 09:37 40 MG Atorvastatin Calcium 40 mg HS PO 04/04/24 22:00 04/04/24 22:18 40 MG Aspirin 81 mg DAILY PO 04/04/24 10:00 04/04/24 09:42 81 MG Diagnostic Test (Pha) 1 strip ACHS 04/04/24 07:00 04/04/24 22:18 1 STRIP Insulin Human Regular HS SC 04/04/24 22:00 Insulin Human Regular AC SC 04/04/24 07:00 04/04/24 17:51 2 UNITS Dextrose 50 ml UD PRN IV 04/03/24 22:45 Nitroglycerin 0.4 mg Q5MINP PRN SL 04/03/24 22:45 Potassium Chloride/Dextrose/ Sod Cl 1,000 ml @ 100 mls/hr Q10H IV 04/04/24 00:15 04/04/24 10:11 100 MLS/HR Hydromorphone HCl 0.4 mg Q3HPRN PRN IV 04/04/24 00:15 04/04/24 09:41 0.4 MG Hydromorphone HCl 0.8 mg Q3HPRN PRN IV 04/04/24 00:15 04/04/24 18:04 0.8 MG Piperacillin Sod/ Tazobactam Sod 100 ml @ 25 mls/hr Q8HR@0100,0900,1700 IV 04/04/24 01:00 04/04/24 18:01 25 MLS/HR objective Physical Exam General appearance: Well-developed, well-nourished middle-aged male Noted drowsy but awakenable, Reports post surgical pains Head: Normocephalic nontraumatic Eyes: EOMI, ALIE, sclera nonicteric, conjunctive- pale ENT: No congestion, NSL bilateral symmetrical, oral mucosa wet Neck: Supple, carotid upstroke +2, trachea midline, JVD 2 cm No goiter/stridor, no lymph nodes JVD-3 cm, C spine- Full ROM No use of sternomastoid muscle Chest: Bilateral symmetrical expansions, no costochondral tenderness Lungs: clear breath sounds all over except reduced at bases CVS: PMI-1 cm medial to L MCL in fifth ICS , S1-S2 NSR no S3 GI: Abdomen soft, obese, bowel sounds hypoactive RUQ-postsurgical wound -feels tender, stain with sanguinous fluid, GLORIA drain-sanguinous discharge RUQ tenderness, no rebound tenderness No hepatosplenomegaly, no mass no hernia , : No CVA tenderness, no bladder mass palpable, genitalia-NE SKIN: Turgor dry, color pink, no rash, no icterus, No varicosity, no ulcers or wounds EXTs: No edema, color pink, no rash, no ecchymosis distal pulses +2 capillary refill <2 seconds, No open wounds JOINTS; full range of motion BACK: No apparent lumbosacral spinal muscle tenderness, LYMPH NODES: No cervical, axillary or inguinal lymph nodes Neuro: Drowsy but awakenable, speech nonfluent expressive aphasia Left-sided hemiparesis motor strength three to 4/5 Sensory-changes of DPN as before PSYCH: Affect mildly depressed-denies suicidal ideation laboratory and microbiology Laboratory Tests 04/04/24 04:40 Test 04/04/24 04:40 Range/Units Serum Glucose 121 #H 74-106 mg/dL Problem List 1. Status post laparoscopy Evacuation of biloma, drainage of abscess and lysis of adhesions 2. Status post Acute cholecystitis Complicated by biloma, abscess and adhesions 3. Leukocytosis 4. Acute on chronic iron-deficiency anemia from a. postsurgical blood loss vs hemodilution 5. 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 Fairly well-controlled diabetes and hypertension 2' Diagnosis/Comorbidities Noncompliance with medical recommendations Doppler lower Assessment/Plan Medical decision making The patient is seen on postop day 2 of laparoscopic cholecystectomy He remains hemodynamically stable and afebrile on postop day 2 He reports to her postsurgical pains from laparoscopic cholecystectomy, evacuation of biloma, abscess and lysis of adhesions * Noted serosanguineous drainage GLORIA drain in amount of 20 ml which is Significantly improved as compared to previous high 340 mL 24 hours ago * Continued on IV hydration and IV antibiotics-Rocephin and Flagyl * Receives IV Dilaudid for postsurgical * Currently followed by Dr. Raul Barroso as Infectious Disease DrHazel Acosta General surgery and Dr. Adriel Mcarthur from Cardiology * The patient has been continued his stay at ICU for intensive care Treatment Plans Continue hospital stay at ICU Continue IV hydration Continue parenteral analgesics for postsurgical pains Continue IV Rocephin and Flagyl Check CBC CMP Mag and phos level in the morning Reviewed input of Dr. Vinnie Acosta and operative report Reviewed input of Dr. Raul Barroso ,ID and Dr. Adriel Mcarthur Cardiology Blood cultures p.r.n. temp 101.5 x3 Reviewed input of SOFTWARE TESTING SPECIALIST-GI consult Reconciled home meds VTE precautions Update patient The patient and and his were well informed by me about 1. Clinical impression, treatment plans, side effects of medications, course of the disease and guarded prognosis 2. All patient's question/ concerns raised by patient are satisfactorily addressed by me Total time spent 60 minutes 40% of time spent interviewing the patient and physical exam 30% of time spent in gathering lab datas and imaging studies 30 % of time is spent in patient education Prognosis Fair to guarded Dietary Evaluation Review Recommendations by RD: Dietary education by RD Comments: 1. Recommend timely diet advancement to Low Fat diet s/p cholecystectomy 2. May consider Ensure Clear supplements TID in the interim appropriate for current diet order to optimize nutrition (250 kcal, 8 gm pro, 0 gm fat/carton) 3. Consulted for TPN/EN: TPN is not clinically indicated at this time due to functional GI tract; should nutrition support be desired, would recommend tube feeding with peptide-based, hydrolyzed formula for improved tolerance - however, advise oral diet trial prior to initiating nutrition support measures Expected Outcomes/Goals: Diet advancement, improved nutritional status, post-op healing Plan discussed with: Spouse Critical Care Time(min): 60 ALLA BARROSO MD Apr 05, 2024 00:10
[2024-04-05 05:42] LABS: Basophils # (auto) 0.1 10 ^3/uL (0-0.2); Basophils % (auto) 0.8 % (0.0-2.0); Eosinophils # (auto) 0.2 10 ^3/uL (0-0.8); Eosinophils % (auto) 1.1 % (0.0-7.0); Hematocrit 33.2 % (41.0-53.0); Hemoglobin 11.1 g/dL (13.5-17.5); Lymphocytes # (auto) 3.3 10 ^3/uL (0.4-5.4); Lymphocytes % (auto) 23.8 % (10.0-50.0); Mean Corpuscular Hemoglobin 29.8 pg (28.0-32.0); Mean Corpuscular Hgb Conc. 33.5 g/dL (32.0-36.0); Monocytes # (auto) 0.9 10 ^3/uL (0-1.3); Monocytes % (auto) 6.8 % (0.0-12.0); Neutrophils # (auto) 9.2 10 ^3/uL (1.6-8.6); Neutrophils % (auto) 67.5 % (37.0-80.0); Nucleated Red Blood Cells % 0.1 %; Platelet Count (auto) 345 10^3/uL (140-450); Red Blood Cells 3.73 10^6/uL (4.5-5.90); Red Cell Distribution Width 13.9 % (11.8-14.3); White Blood Cell 13.7 10^3/uL (4.4-10.8)
[2024-04-05 06:01] LABS: Albumin 3.7 g/dL (3.2-4.8); Anion Gap 6 (5-15); Aspartate Aminotransferase 28 U/L (13-40); Calcium 9.5 mg/dL (8.7-10.4); Carbon Dioxide 27 mmol/L (20-31); Chloride 105 mmol/L (98-107); Phosphorus 3.4 mg/dL (2.4-5.1); Potassium 3.8 mmol/L (3.5-5.1); Sodium 138 mmol/L (136-145)
[2024-04-05 06:02] LABS: Bilirubin, Total 0.5 mg/dL (0.2-1.0); Total Protein 5.9 g/dL (5.7-8.2)
[2024-04-05 06:04] LABS: Alanine Aminotransferase 42 U/L (7-40); Alkaline Phosphatase 121 U/L (46-116); BUN/Creatinine Ratio 8.8 (10.0-20.0); Blood Urea Nitrogen < 5 mg/dL (9-23); Glucose 136 mg/dL (74-106)
[2024-04-05] MEDS: DOCUSATE ORAL LIQUID 100 MG/10 ML UD PO SCH (08:56)
--- NOTE | 2024-04-05 09:19 | DVHPN2 ---
Progress Note - Surgical Date Seen: Apr 05, 2024 Post op day Post op day: 3 Subjective Review of Systems: Not Done Objective Vital signs Vital Sign Date Time Temp Pulse Resp B/P (MAP) Pulse Ox O2 Delivery O2 Flow Rate FiO2 04/05/24 08:17 102 04/05/24 08:00 99.0 23 119/80 (93) 97 99.0 04/05/24 07:30 Room Air* 0 21 Total Intake and Output 04/04/24 04/04/24 04/05/24 15:00 23:00 07:00 Intake Total 900 ml 1525 ml 1280 ml Output Total 3000 ml 2130 ml Balance 900 ml -1475 ml -850 ml Medications Current Medications Medications Dose Ordered Sig/Aruna Route Start Time Stop Time Status Last Admin Dose Admin Ceftriaxone Sodium/Dextrose 50 ml @ 50 mls/hr DAILY@2100 IV 04/04/24 21:00 Cancel Metronidazole 100 ml @ 100 mls/hr Q8HR IV 04/04/24 06:00 Cancel Ondansetron HCl 4 mg Q4HPRN PRN IV 04/03/24 22:45 Pantoprazole Sodium 40 mg DAILY IV 04/04/24 10:00 04/05/24 08:56 40 MG Atorvastatin Calcium 40 mg HS PO 04/04/24 22:00 04/04/24 22:18 40 MG Aspirin 81 mg DAILY PO 04/04/24 10:00 04/05/24 08:57 81 MG Diagnostic Test (Pha) 1 strip ACHS 04/04/24 07:00 04/05/24 06:27 1 STRIP Insulin Human Regular HS SC 04/04/24 22:00 Insulin Human Regular AC SC 04/04/24 07:00 04/05/24 06:28 2 UNITS Dextrose 50 ml UD PRN IV 04/03/24 22:45 Nitroglycerin 0.4 mg Q5MINP PRN SL 04/03/24 22:45 Potassium Chloride/Dextrose/ Sod Cl 1,000 ml @ 100 mls/hr Q10H IV 04/04/24 00:15 04/05/24 00:45 100 MLS/HR Hydromorphone HCl 0.4 mg Q3HPRN PRN IV 04/04/24 00:15 04/05/24 02:58 0.4 MG Hydromorphone HCl 0.8 mg Q3HPRN PRN IV 04/04/24 00:15 04/04/24 18:04 0.8 MG Piperacillin Sod/ Tazobactam Sod 100 ml @ 25 mls/hr Q8HR@0100,0900,1700 IV 04/04/24 01:00 04/05/24 08:56 25 MLS/HR Docusate Sodium 100 mg BIDP PO 04/05/24 10:00 04/05/24 08:56 100 MG Laboratory Laboratory Tests 04/05/24 05:20 Test 04/05/24 05:20 Range/Units Serum Glucose 136 H 74-106 mg/dL Microbiology Date/Time Source Procedure Growth Status 04/02/24 17:16 Nose MRSA Screen - Final Complete 04/02/24 13:00 Gallbladder Fluid Anaerobic Culture - Preliminary Resulted 04/02/24 13:00 Aerobic Culture - Final Pseudomonas aeruginosa Enterobacter aerogenes Resulted Examination: GENERAL:Normal, HEENT:Normal, NECK:Normal, LUNGS:Normal, CVS:Normal, ABDOMEN:Abnormal (GLORIA drains) Problem List/Assessment/Plan Problems: (1) S/P cholecystectomy (2) Acute cholecystitis (3) Hypertension (4) Diabetes Assessment and Plan no new complaints abdomen soft , non distended, appropriately tender wounds clean dry and intact GLORIA drains about 150cc serous/brown fluid Plan: continue with current treatment continue IV antibiotics pain control ok to downgrade to telemetry with a sitter Dr. Marin agrees with Plan My Orders My Orders Orders - LAMAR CHOE NP Procedure Category Date Status Time Docusate Sodium PHA 04/05/24 In Process Liquid (Colace Liquid) 10:00 Plan discussed with Plan discussed with: Patient, Other (Nurse) Visit Coding Surgery Date of Service if different f: Apr 05, 2024 Billing Provider: YOEL MARIN MD Surgery Visit Codes: [id number] INP/OBS CARE(HIGH) LAMAR CHOE NP Apr 05, 2024 09:19
--- NOTE | 2024-04-05 11:10 | DVHPN2 ---
Progress Note Date Seen: Apr 05, 2024 Resident Creating Document: ENRIQUE YORK RESIDENT Has the PT tested + for MRSA If YES, has PT been informed?: No Medical Necessity Reason Pt with a Central, PICC or Fol: No Subjective Review of Systems Patient was seen and examined on the bedside. He is alert oriented x3. Complaining of pain around the abdominal incision site. He is tolerating liquid, passing flatus but not having any bowel movement. 24 hours GLORIA drain collection around 150 cc serosanguineous/brown fluid. Patient is Downgraded to telemetry. Objective vital signs Vital Sign Date Time Temp Pulse Resp B/P (MAP) Pulse Ox O2 Delivery O2 Flow Rate FiO2 04/05/24 08:17 102 04/05/24 08:00 99.0 23 119/80 (93) 97 99.0 04/05/24 07:30 Room Air* 0 21 Total Intake and Output 04/04/24 04/04/24 04/05/24 15:00 23:00 07:00 Intake Total 900 ml 1525 ml 1280 ml Output Total 3000 ml 2130 ml Balance 900 ml -1475 ml -850 ml medications Current Medications Medications Dose Ordered Sig/Aruna Route Start Time Stop Time Status Last Admin Dose Admin Ceftriaxone Sodium/Dextrose 50 ml @ 50 mls/hr DAILY@2100 IV 04/04/24 21:00 Cancel Metronidazole 100 ml @ 100 mls/hr Q8HR IV 04/04/24 06:00 Cancel Ondansetron HCl 4 mg Q4HPRN PRN IV 04/03/24 22:45 Pantoprazole Sodium 40 mg DAILY IV 04/04/24 10:00 04/05/24 08:56 40 MG Atorvastatin Calcium 40 mg HS PO 04/04/24 22:00 04/04/24 22:18 40 MG Aspirin 81 mg DAILY PO 04/04/24 10:00 04/05/24 08:57 81 MG Diagnostic Test (Pha) 1 strip ACHS 04/04/24 07:00 04/05/24 06:27 1 STRIP Insulin Human Regular HS SC 04/04/24 22:00 Insulin Human Regular AC SC 04/04/24 07:00 04/05/24 06:28 2 UNITS Dextrose 50 ml UD PRN IV 04/03/24 22:45 Nitroglycerin 0.4 mg Q5MINP PRN SL 04/03/24 22:45 Potassium Chloride/Dextrose/ Sod Cl 1,000 ml @ 100 mls/hr Q10H IV 04/04/24 00:15 04/05/24 00:45 100 MLS/HR Hydromorphone HCl 0.4 mg Q3HPRN PRN IV 04/04/24 00:15 04/05/24 02:58 0.4 MG Hydromorphone HCl 0.8 mg Q3HPRN PRN IV 04/04/24 00:15 04/04/24 18:04 0.8 MG Piperacillin Sod/ Tazobactam Sod 100 ml @ 25 mls/hr Q8HR@0100,0900,1700 IV 04/04/24 01:00 04/05/24 08:56 25 MLS/HR Docusate Sodium 100 mg BIDP PO 04/05/24 10:00 04/05/24 08:56 100 MG Examination Physical examination: General Appearance: Alert, Oriented X3, Cooperative, No acute distress HEENT: Atraumatic, PERRLA, EOMI, Mucous membrane moist/pink Respiratory: Clear to auscultation, Normal air movement Cardiovascular: Regular rate, Normal S1, Normal S2, No murmurs, no chest wall tenderness Abdominal: Normal bowel sounds, Soft, tenderness around the incision site, No hepatospenomegaly, No masses Extremities: No clubbing, No cyanosis, No edema, Normal pulses, No tenderness/swelling Skin: No rashes, No breakdown, No significant lesion Neuro: Normal speech, Strength at 5/5 X4 ext, Normal tone, Sensation intact, grossly intact cranial nerves. Psych/Mental Status: Mental status NL, Mood NL laboratory and microbiology Laboratory Tests 04/05/24 05:20 Test 04/05/24 05:20 Range/Units Serum Glucose 136 H 74-106 mg/dL Microbiology Date/Time Source Procedure Growth Status 04/02/24 17:16 Nose MRSA Screen - Final Complete 04/02/24 13:00 Gallbladder Fluid Anaerobic Culture - Preliminary Resulted 04/02/24 13:00 Aerobic Culture - Final Pseudomonas aeruginosa Enterobacter aerogenes Resulted Labs and/or images reviewed: Labs reviewed by me, Image(s) reviewed by me Problem List/Assessment/Plan Problem List/Assessment/Plan Assessment: # S/P Laparoscopy, evacuation of right upper quadrant biloma and abscess evacuation of myriad of small black gallstones, cholecystectomy, day 3 # Right upper quadrant pain likely secondary to acute cholecystitis # acute cholecystitis with cholelithiasis # s/p percutaneous transhepatic biliary drainage # Transaminitis without hyperbilirubinemia # History of obstructive jaundice with choledocholithiasis # History of CVA with left-sided hemiparesis Plan: - Full liquid diet - Downgraded to Telemetry. - continue IV antibiotic as per primary team - Surgery and infectious disease in board - Follow surgical recommendation regarding advancement of diet and clearance for discharge. - Physical therapy as tolerated. - monitor liver enzymes and bilirubin Plan discussed with Dr. Henley Plan discussed with: Patient, Other My Orders My Orders Orders - ENRIQUE YORK RESIDENT Procedure Category Date Status Time Transfer Orders XFER 04/05/24 Transmitted 11:00 Dietary Evaluation Review Recommendations by RD: Dietary education by RD Comments: 1. Recommend timely diet advancement to Low Fat diet s/p cholecystectomy 2. May consider Ensure Clear supplements TID in the interim appropriate for current diet order to optimize nutrition (250 kcal, 8 gm pro, 0 gm fat/carton) 3. Consulted for TPN/EN: TPN is not clinically indicated at this time due to functional GI tract; should nutrition support be desired, would recommend tube feeding with peptide-based, hydrolyzed formula for improved tolerance - however, advise oral diet trial prior to initiating nutrition support measures Expected Outcomes/Goals: Diet advancement, improved nutritional status, post-op healing ENRIQUE YORK Apr 05, 2024 11:10
--- NOTE | 2024-04-05 11:18 | DVHPN2 ---
Consult Progress Note Date Seen: Apr 03, 2024 Subjective Patient reports: Other (feeling a bit weak with mild abdominal pain , no bowel movement yet after surgery . he has 130ccs of dark red output coming from GLORIA drain ) Objective vital signs Vital Sign Date Time Temp Pulse Resp B/P (MAP) Pulse Ox O2 Delivery O2 Flow Rate FiO2 04/05/24 11:00 99 21 107/44 (65) 96 04/05/24 08:00 99.0 99.0 04/05/24 07:30 Room Air* 0 21 Total Intake and Output 04/04/24 04/04/24 04/05/24 15:00 23:00 07:00 Intake Total 900 ml 1525 ml 1380 ml Output Total 3000 ml 2130 ml Balance 900 ml -1475 ml -750 ml medications Current Medications Medications Dose Ordered Sig/Aruna Route Start Time Stop Time Status Last Admin Dose Admin Ceftriaxone Sodium/Dextrose 50 ml @ 50 mls/hr DAILY@2100 IV 04/04/24 21:00 Cancel Metronidazole 100 ml @ 100 mls/hr Q8HR IV 04/04/24 06:00 Cancel Ondansetron HCl 4 mg Q4HPRN PRN IV 04/03/24 22:45 Pantoprazole Sodium 40 mg DAILY IV 04/04/24 10:00 04/05/24 08:56 40 MG Atorvastatin Calcium 40 mg HS PO 04/04/24 22:00 04/04/24 22:18 40 MG Aspirin 81 mg DAILY PO 04/04/24 10:00 04/05/24 08:57 81 MG Diagnostic Test (Pha) 1 strip ACHS 04/04/24 07:00 04/05/24 06:27 1 STRIP Insulin Human Regular HS SC 04/04/24 22:00 Insulin Human Regular AC SC 04/04/24 07:00 04/05/24 06:28 2 UNITS Dextrose 50 ml UD PRN IV 04/03/24 22:45 Nitroglycerin 0.4 mg Q5MINP PRN SL 04/03/24 22:45 Potassium Chloride/Dextrose/ Sod Cl 1,000 ml @ 100 mls/hr Q10H IV 04/04/24 00:15 04/05/24 00:45 100 MLS/HR Hydromorphone HCl 0.4 mg Q3HPRN PRN IV 04/04/24 00:15 04/05/24 02:58 0.4 MG Hydromorphone HCl 0.8 mg Q3HPRN PRN IV 04/04/24 00:15 04/04/24 18:04 0.8 MG Piperacillin Sod/ Tazobactam Sod 100 ml @ 25 mls/hr Q8HR@0100,0900,1700 IV 04/04/24 01:00 04/05/24 08:56 25 MLS/HR Docusate Sodium 100 mg BIDP PO 04/05/24 10:00 04/05/24 08:56 100 MG Physical Exam: - General: NAD - Neck: Supple. No masses. - HEENT: PERRL. Normal lids and conjunctiva. Moist mucous membranes. Oropharynx without lesions, exudates, or excessive erythema. Normal appearance of the external aspects of the nose and ears. - Heart: Regular rhythm, normal rate. No murmur. No lower extremity edema. - Lungs: Normal respiratory effort. Clear to auscultation bilaterally. No wheezes. No crackles. - Abdomen: Mildly distended. Tenderness in the right upper quadrant with guarding. No masses or abdominal hernia. - MSK: No digital cyanosis. Open, non-draining foot wounds status post multiple debridements. Normal strength and tone in all 4 limbs. - Skin: Warm and dry. Rash noted. - Neuro: Alert. No facial droop or slurred speech. Extraocular movements intact. Sensation intact to soft touch in all 4 limbs. - Psych: Appropriate mood. Full affect. Oriented to person, place, time, and situation. laboratory and microbiology Laboratory Tests 04/05/24 05:20 Test 04/05/24 05:20 Range/Units Serum Glucose 136 H 74-106 mg/dL Problem List/Assessment/Plan Problems(with codes): (1) Hypertension (2) Hypotension (3) Abdominal pain (4) Sepsis (5) Diabetes (6) Acute cholecystitis (7) S/P cholecystectomy Problem List/Assessment/Plan ID Problem List: - Cerebrovascular accident with left hand paresis - Bed confined - Uncontrolled diabetes mellitus - Hypercholesterolemia - Hypertension - Paroxysmal atrial fibrillation - Cholelithiasis - Cholecystitis - Recent right MCA stroke with mid-cervical occlusion of right ICA - Necrotic infections of bilateral feet, status post multiple debridements Assessment This is a 68 y.o. male with a past medical history of cerebrovascular accident with left hand paresis, uncontrolled diabetes mellitus, hypercholesterolemia, hypertension, paroxysmal atrial fibrillation on Eliquis, recent right MCA stroke with mid-cervical occlusion of the right internal carotid artery, and status post coronary artery bypass graft several years ago, who presents with right upper quadrant pain, obstructive jaundice, and failure to thrive. The patient has been experiencing intermittent right upper quadrant pain and obstructive jaundice. He previously underwent percutaneous transhepatic biliary drainage at [facility] several weeks ago (records pending). Currently, he exhibits poor appetite, significant weight loss, and signs of acute cholecystitis. Vital signs are notable for fever (Tmax 101.5F) and tachycardia. Physical examination reveals right upper quadrant tenderness with guarding, mildly distended abdomen, rash, and open, non-draining foot wounds status post multiple debridements. Laboratory studies show leukocytosis (WBC 11.7 K/L) and elevated creatinine (1.56 mg/dL). Imaging studies are consistent with acute cholecystitis and stercoral colitis. 04/01: whitecount is 10.4 , patients MRPC shows no intro or extra hepatic biliary ductal dilation , no MRI evidence of chololithiasis , gallbladder wall thickening suggest acute cholecystitis . abdominal ultrasound shows cholelithiasis 04/02: per operative note patient underwent a laparoscopic cholecystectomy procedure and was found fibrinous flegmon in the right upper quadrant which consisted of trezors coils momentum loops of bowel. the inflammation was exuberant and after dissecting the momentum from the fundus of the gallbladder became obious the patient had a rupture of the gallbladder which spilled a myriad of natalya stones which was then seaaled off by this momentum and contained in the biloma and a puss collection . cultures and sensitivities were obtained . the myriad little stones were aspirated and scooped up to the best of my ability and then the gallbladder was resected by circumferentially dissecting the cystic duct and cystic artery . no attempt was made to trace the cystic duct to the common duct due to the inflammation and ligament is like adhesions and concretions . area was irrigated . patient remains normal throughout the procedure but there were no complications however the choice of laparoscopic procedure was chosen due to patient having a poor overall health 04/03: patients is growing 2 gram negative rods from operative cultures , whitecount is 16 and has tachycardia to 107s Plan: - recommend stopping ceftriaxone and Flagyl -start Zosyn - follow up on gram negative rods species - if tachycardia and other signs of sepsis persists would consider getting blood cultures , broadening out gram negative coverage - keep blood sugars under 180 - in light of perative finding recommend once blood cultures are confirmed negative for patient to get a piccline and at least 6 weeks of IV antibiotics followed by a CT scan to confirm resolution of infection - follow up with infectious disease in 4 weeks - follow up on operative cultures results and antibiotics will be determined by results - Continue ceftriaxone and azithromycin empirically. - Patient is scheduled for urgent laparoscopic cholecystectomy. - Agree with this plan. - Ensure any necrotic specimens or infected inflammatory tissue are cultured and sent to pathology. - Monitor vital signs and laboratory markers closely. - Assess and manage foot wounds; consider obtaining cultures if signs of infection are present. - Obtain previous medical records from [facility]. - Maintain hydration and electrolyte balance. - Manage blood glucose levels to optimize glycemic control. - Continue home medications: atorvastatin, aspirin, and Eliquis. Isolation Precautions: Standard Plan discussed with: Other Dietary Evaluation Review Recommendations by RD: Dietary education by RD Comments: 1. Recommend timely diet advancement to Low Fat diet s/p cholecystectomy 2. May consider Ensure Clear supplements TID in the interim appropriate for current diet order to optimize nutrition (250 kcal, 8 gm pro, 0 gm fat/carton) 3. Consulted for TPN/EN: TPN is not clinically indicated at this time due to functional GI tract; should nutrition support be desired, would recommend tube feeding with peptide-based, hydrolyzed formula for improved tolerance - however, advise oral diet trial prior to initiating nutrition support measures Expected Outcomes/Goals: Diet advancement, improved nutritional status, post-op healing TRENT STRINGER MD Apr 05, 2024 11:18
--- NOTE | 2024-04-05 11:23 | DVHPN2 ---
Consult Progress Note Date Seen: Apr 04, 2024 Subjective Patient reports: Other (continues to be tachycardic and doesnt have abdominal pain , 120ccs of dark red drainage coming from GLORIA drain ) Objective vital signs Vital Sign Date Time Temp Pulse Resp B/P (MAP) Pulse Ox O2 Delivery O2 Flow Rate FiO2 04/05/24 11:00 99 21 107/44 (65) 96 04/05/24 08:00 99.0 99.0 04/05/24 07:30 Room Air* 0 21 Total Intake and Output 04/04/24 04/04/24 04/05/24 15:00 23:00 07:00 Intake Total 900 ml 1525 ml 1380 ml Output Total 3000 ml 2130 ml Balance 900 ml -1475 ml -750 ml medications Current Medications Medications Dose Ordered Sig/Aruna Route Start Time Stop Time Status Last Admin Dose Admin Ceftriaxone Sodium/Dextrose 50 ml @ 50 mls/hr DAILY@2100 IV 04/04/24 21:00 Cancel Metronidazole 100 ml @ 100 mls/hr Q8HR IV 04/04/24 06:00 Cancel Ondansetron HCl 4 mg Q4HPRN PRN IV 04/03/24 22:45 Pantoprazole Sodium 40 mg DAILY IV 04/04/24 10:00 04/05/24 08:56 40 MG Atorvastatin Calcium 40 mg HS PO 04/04/24 22:00 04/04/24 22:18 40 MG Aspirin 81 mg DAILY PO 04/04/24 10:00 04/05/24 08:57 81 MG Diagnostic Test (Pha) 1 strip ACHS 04/04/24 07:00 04/05/24 06:27 1 STRIP Insulin Human Regular HS SC 04/04/24 22:00 Insulin Human Regular AC SC 04/04/24 07:00 04/05/24 06:28 2 UNITS Dextrose 50 ml UD PRN IV 04/03/24 22:45 Nitroglycerin 0.4 mg Q5MINP PRN SL 04/03/24 22:45 Potassium Chloride/Dextrose/ Sod Cl 1,000 ml @ 100 mls/hr Q10H IV 04/04/24 00:15 04/05/24 00:45 100 MLS/HR Hydromorphone HCl 0.4 mg Q3HPRN PRN IV 04/04/24 00:15 04/05/24 02:58 0.4 MG Hydromorphone HCl 0.8 mg Q3HPRN PRN IV 04/04/24 00:15 04/04/24 18:04 0.8 MG Piperacillin Sod/ Tazobactam Sod 100 ml @ 25 mls/hr Q8HR@0100,0900,1700 IV 04/04/24 01:00 04/05/24 08:56 25 MLS/HR Docusate Sodium 100 mg BIDP PO 04/05/24 10:00 04/05/24 08:56 100 MG Physical Exam: - General: NAD - Neck: Supple. No masses. - HEENT: PERRL. Normal lids and conjunctiva. Moist mucous membranes. Oropharynx without lesions, exudates, or excessive erythema. Normal appearance of the external aspects of the nose and ears. - Heart: Regular rhythm, normal rate. No murmur. No lower extremity edema. - Lungs: Normal respiratory effort. Clear to auscultation bilaterally. No wheezes. No crackles. - Abdomen: Mildly distended. Tenderness in the right upper quadrant with guarding. No masses or abdominal hernia. - MSK: No digital cyanosis. Open, non-draining foot wounds status post multiple debridements. Normal strength and tone in all 4 limbs. - Skin: Warm and dry. Rash noted. - Neuro: Alert. No facial droop or slurred speech. Extraocular movements intact. Sensation intact to soft touch in all 4 limbs. - Psych: Appropriate mood. Full affect. Oriented to person, place, time, and situation. laboratory and microbiology Laboratory Tests 04/05/24 05:20 Test 04/05/24 05:20 Range/Units Serum Glucose 136 H 74-106 mg/dL Problem List/Assessment/Plan Problems(with codes): (1) Acute cholecystitis (2) Diabetes (3) Sepsis (4) Abdominal pain (5) Hypertension Problem List/Assessment/Plan ID Problem List: - Cerebrovascular accident with left hand paresis - Bed confined - Uncontrolled diabetes mellitus - Hypercholesterolemia - Hypertension - Paroxysmal atrial fibrillation - Cholelithiasis - Cholecystitis - Recent right MCA stroke with mid-cervical occlusion of right ICA - Necrotic infections of bilateral feet, status post multiple debridements Assessment This is a 68 y.o. male with a past medical history of cerebrovascular accident with left hand paresis, uncontrolled diabetes mellitus, hypercholesterolemia, hypertension, paroxysmal atrial fibrillation on Eliquis, recent right MCA stroke with mid-cervical occlusion of the right internal carotid artery, and status post coronary artery bypass graft several years ago, who presents with right upper quadrant pain, obstructive jaundice, and failure to thrive. The patient has been experiencing intermittent right upper quadrant pain and obstructive jaundice. He previously underwent percutaneous transhepatic biliary drainage at [facility] several weeks ago (records pending). Currently, he exhibits poor appetite, significant weight loss, and signs of acute cholecystitis. Vital signs are notable for fever (Tmax 101.5F) and tachycardia. Physical examination reveals right upper quadrant tenderness with guarding, mildly distended abdomen, rash, and open, non-draining foot wounds status post multiple debridements. Laboratory studies show leukocytosis (WBC 11.7 K/L) and elevated creatinine (1.56 mg/dL). Imaging studies are consistent with acute cholecystitis and stercoral colitis. 04/01: whitecount is 10.4 , patients MRPC shows no intro or extra hepatic biliary ductal dilation , no MRI evidence of chololithiasis , gallbladder wall thickening suggest acute cholecystitis . abdominal ultrasound shows cholelithiasis 04/02: per operative note patient underwent a laparoscopic cholecystectomy procedure and was found fibrinous flegmon in the right upper quadrant which consisted of trezors coils momentum loops of bowel. the inflammation was exuberant and after dissecting the momentum from the fundus of the gallbladder became obious the patient had a rupture of the gallbladder which spilled a myriad of natalya stones which was then seaaled off by this momentum and contained in the biloma and a puss collection . cultures and sensitivities were obtained . the myriad little stones were aspirated and scooped up to the best of my ability and then the gallbladder was resected by circumferentially dissecting the cystic duct and cystic artery . no attempt was made to trace the cystic duct to the common duct due to the inflammation and ligament is like adhesions and concretions . area was irrigated . patient remains normal throughout the procedure but there were no complications however the choice of laparoscopic procedure was chosen due to patient having a poor overall health 04/03: patients is growing 2 gram negative rods from operative cultures , whitecount is 16 and has tachycardia to 107s 04/04: whitecount is 13/7 , operative cultures are growing pseudomonas and enterobacteria both having sensitivities to levofloxacin , passing flattis and tolerating clear liquid diet Plan: - oral regimen of levofloxacin 750 milligrams dialy and oral flagyl 500 milligrams every 8 hours for 1 moth may be an acceptable regimen however would like to see patients tachycardia resolve and continued improvement in clinical stability . alternatively if patient is to be discharged in next 1-2 days would recomend IV Zosyn continuous dosing VIA piccline for 1 month - follow up with infectious disease clinic in 4 weeks - follow up Ct imaging to confirm resolution of intraabdominal infection - defer post op management to general surgery -Continue Zosyn - follow up on gram negative rods species - if tachycardia and other signs of sepsis persists would consider getting blood cultures , broadening out gram negative coverage - keep blood sugars under 180 - in light of perative finding recommend once blood cultures are confirmed negative for patient to get a piccline and at least 6 weeks of IV antibiotics followed by a CT scan to confirm resolution of infection - follow up with infectious disease in 4 weeks - follow up on operative cultures results and antibiotics will be determined by results - Continue ceftriaxone and azithromycin empirically. - Patient is scheduled for urgent laparoscopic cholecystectomy. - Agree with this plan. - Ensure any necrotic specimens or infected inflammatory tissue are cultured and sent to pathology. - Monitor vital signs and laboratory markers closely. - Assess and manage foot wounds; consider obtaining cultures if signs of infection are present. - Obtain previous medical records from [facility]. - Maintain hydration and electrolyte balance. - Manage blood glucose levels to optimize glycemic control. - Continue home medications: atorvastatin, aspirin, and Eliquis. Isolation Precautions: Standard Plan discussed with: Other Dietary Evaluation Review Recommendations by RD: Dietary education by RD Comments: 1. Recommend timely diet advancement to Low Fat diet s/p cholecystectomy 2. May consider Ensure Clear supplements TID in the interim appropriate for current diet order to optimize nutrition (250 kcal, 8 gm pro, 0 gm fat/carton) 3. Consulted for TPN/EN: TPN is not clinically indicated at this time due to functional GI tract; should nutrition support be desired, would recommend tube feeding with peptide-based, hydrolyzed formula for improved tolerance - however, advise oral diet trial prior to initiating nutrition support measures Expected Outcomes/Goals: Diet advancement, improved nutritional status, post-op healing TRENT STRINGER MD Apr 05, 2024 11:23
--- NOTE | 2024-04-05 20:06 | DVHPN2 ---
Progress Note - Dictate Date Seen: Apr 05, 2024 Has the PT tested + for MRSA If YES, has PT been informed?: No Medical Necessity Reason Pt with a Central, PICC or Fol: No Subjective Patient was seen and evaluated in follow up in the ICU. Patient is complaining of abdominal discomfort. GLORIA drain with 150 cc serosanguineous/brown fluid. Patient has not had a BM. WBC 13.7. vital signs Vital Sign Date Time Temp Pulse Resp B/P (MAP) Pulse Ox O2 Delivery O2 Flow Rate FiO2 04/05/24 11:00 99 21 107/44 (65) 96 04/05/24 08:00 99.0 99.0 04/05/24 07:30 Room Air* 0 21 Total Intake and Output 04/04/24 04/04/24 04/05/24 15:00 23:00 07:00 Intake Total 900 ml 1525 ml 1380 ml Output Total 3000 ml 2130 ml Balance 900 ml -1475 ml -750 ml medications Current Medications Medications Dose Ordered Sig/Aruna Route Start Time Stop Time Status Last Admin Dose Admin Ceftriaxone Sodium/Dextrose 50 ml @ 50 mls/hr DAILY@2100 IV 04/04/24 21:00 Cancel Metronidazole 100 ml @ 100 mls/hr Q8HR IV 04/04/24 06:00 Cancel Ondansetron HCl 4 mg Q4HPRN PRN IV 04/03/24 22:45 Pantoprazole Sodium 40 mg DAILY IV 04/04/24 10:00 04/05/24 08:56 40 MG Atorvastatin Calcium 40 mg HS PO 04/04/24 22:00 04/04/24 22:18 40 MG Aspirin 81 mg DAILY PO 04/04/24 10:00 04/05/24 08:57 81 MG Diagnostic Test (Pha) 1 strip ACHS 04/04/24 07:00 04/05/24 06:27 1 STRIP Insulin Human Regular HS SC 04/04/24 22:00 Insulin Human Regular AC SC 04/04/24 07:00 04/05/24 06:28 2 UNITS Dextrose 50 ml UD PRN IV 04/03/24 22:45 Nitroglycerin 0.4 mg Q5MINP PRN SL 04/03/24 22:45 Potassium Chloride/Dextrose/ Sod Cl 1,000 ml @ 100 mls/hr Q10H IV 04/04/24 00:15 2/15/25 00:45 100 MLS/HR Hydromorphone HCl 0.4 mg Q3HPRN PRN IV 04/04/24 00:15 04/05/24 02:58 0.4 MG Hydromorphone HCl 0.8 mg Q3HPRN PRN IV 04/04/24 00:15 04/04/24 18:04 0.8 MG Piperacillin Sod/ Tazobactam Sod 100 ml @ 25 mls/hr Q8HR@0100,0900,1700 IV 04/04/24 01:00 04/05/24 08:56 25 MLS/HR Docusate Sodium 100 mg BIDP PO 04/05/24 10:00 04/05/24 08:56 100 MG objective GENERAL: Awake, alert, oriented. LUNGS: Clear. CARDIOVASCULAR: Heart sounds are good. ABDOMEN: Soft. RUQ TTP. laboratory and microbiology Laboratory Tests 04/05/24 05:20 Test 04/05/24 05:20 Range/Units Serum Glucose 136 H 74-106 mg/dL Problem List Acute RUQ abdominal pain. Acute cholecystitis. Recent history of choledocholithiasis and obstructive jaundice. Status post percutaneous transhepatic biliary drainage. Hypovolemia. Right CVA with left-sided hemiparesis. Diabetes. Hypertension. Noncompliance with medical recommendations. Assessment/Plan Continued all current supportive medical care. Aspirin, Lipitor. IV antibiotics as ordered. Dilaudid for pain management. Additional plan as per the hospital course. Critical care time of 45 minutes provided to include time spent evaluation of patient at bedside, when appropriate patient/family education for diagnosis, treatment plan, review of pertinent medical information and discussion of care with specialty providers and PCP. Dietary Evaluation Review Recommendations by RD: Dietary education by RD Comments: 1. Recommend timely diet advancement to Low Fat diet s/p cholecystectomy 2. May consider Ensure Clear supplements TID in the interim appropriate for current diet order to optimize nutrition (250 kcal, 8 gm pro, 0 gm fat/carton) 3. Consulted for TPN/EN: TPN is not clinically indicated at this time due to functional GI tract; should nutrition support be desired, would recommend tube feeding with peptide-based, hydrolyzed formula for improved tolerance - however, advise oral diet trial prior to initiating nutrition support measures Expected Outcomes/Goals: Diet advancement, improved nutritional status, post-op healing Plan discussed with: Patient ANITRA HOOD MD Apr 05, 2024 12:16
--- NOTE | 2024-04-05 20:42 | DVHPN2 ---
Progress Note - Dictate Date Seen: Apr 05, 2024 Has the PT tested + for MRSA If YES, has PT been informed?: No Medical Necessity Reason Pt with a Central, PICC or Fol: No Medical Necessity Reason Receives postoperative care IV antibiotics and parenteral analgesics Currently on full liquids diet Subjective The patient is seen at Rm 233- downgraded from ICU B 262 He reports to have feeling hungry, less frequent postsurgical pains from receiving laparoscopic Cholecystectomy * Remains hemodynamically stable and afebrile * Currently receives IV fluids and IV antibiotics, parenteral analgesics for Postsurgical pains management * Currently followed by Dr. Vinnie acosta from General surgery, Dr. Adriel Mcarthur cardiology and Dr. Raul Barroso infectious Disease Overnight events are reviewed through medical chart and case discussion with patient's assigned RN while making rounds on patient on the day of service vital signs Vital Sign Date Time Temp Pulse Resp B/P (MAP) Pulse Ox O2 Delivery O2 Flow Rate FiO2 04/05/24 16:00 98.0 99 18 103/68 (80) 98 98.0 04/05/24 07:30 Room Air* 0 21 Total Intake and Output 04/04/24 04/04/24 04/05/24 15:00 23:00 07:00 Intake Total 900 ml 1525 ml 1380 ml Output Total 3000 ml 2130 ml Balance 900 ml -1475 ml -750 ml medications Current Medications Medications Dose Ordered Sig/Aruna Route Start Time Stop Time Status Last Admin Dose Admin Ceftriaxone Sodium/Dextrose 50 ml @ 50 mls/hr DAILY@2100 IV 04/04/24 21:00 Cancel Metronidazole 100 ml @ 100 mls/hr Q8HR IV 04/04/24 06:00 Cancel Ondansetron HCl 4 mg Q4HPRN PRN IV 04/03/24 22:45 Pantoprazole Sodium 40 mg DAILY IV 04/04/24 10:00 04/05/24 08:56 40 MG Atorvastatin Calcium 40 mg HS PO 04/04/24 22:00 04/04/24 22:18 40 MG Aspirin 81 mg DAILY PO 04/04/24 10:00 04/05/24 08:57 81 MG Diagnostic Test (Pha) 1 strip ACHS 04/04/24 07:00 04/05/24 17:14 1 STRIP Insulin Human Regular HS SC 04/04/24 22:00 Insulin Human Regular AC SC 04/04/24 07:00 04/05/24 17:20 2 UNITS Dextrose 50 ml UD PRN IV 04/03/24 22:45 Nitroglycerin 0.4 mg Q5MINP PRN SL 04/03/24 22:45 Potassium Chloride/Dextrose/ Sod Cl 1,000 ml @ 100 mls/hr Q10H IV 04/04/24 00:15 04/05/24 16:52 100 MLS/HR Hydromorphone HCl 0.4 mg Q3HPRN PRN IV 04/04/24 00:15 04/05/24 02:58 0.4 MG Hydromorphone HCl 0.8 mg Q3HPRN PRN IV 04/04/24 00:15 04/04/24 18:04 0.8 MG Piperacillin Sod/ Tazobactam Sod 100 ml @ 25 mls/hr Q8HR@0100,0900,1700 IV 04/04/24 01:00 04/05/24 16:59 25 MLS/HR Docusate Sodium 100 mg BIDP PO 04/05/24 10:00 04/05/24 08:56 100 MG objective Physical Exam General appearance: Well-developed, well-nourished middle-aged male Noted drowsy but awakenable, Reports post surgical pains Head: Normocephalic nontraumatic Eyes: EOMI, ALIE, sclera nonicteric, conjunctive- pale ENT: No congestion, NSL bilateral symmetrical, oral mucosa wet Neck: Supple, carotid upstroke +2, trachea midline, JVD 2 cm No goiter/stridor, no lymph nodes JVD-3 cm, C spine- Full ROM No use of sternomastoid muscle Chest: Bilateral symmetrical expansions, no costochondral tenderness Lungs: clear breath sounds all over except reduced at bases CVS: PMI-1 cm medial to L MCL in fifth ICS , S1-S2 NSR no S3 GI: Abdomen soft, obese, bowel sounds hypoactive RUQ-postsurgical wound -feels tender, stain with sanguinous fluid, GLORIA drain-sanguinous discharge RUQ tenderness, no rebound tenderness No hepatosplenomegaly, no mass no hernia , : No CVA tenderness, no bladder mass palpable, genitalia-NE SKIN: Turgor dry, color pink, no rash, no icterus, No varicosity, no ulcers or wounds EXTs: No edema, color pink, no rash, no ecchymosis distal pulses +2 capillary refill <2 seconds, No open wounds JOINTS; full range of motion BACK: No apparent lumbosacral spinal muscle tenderness, LYMPH NODES: No cervical, axillary or inguinal lymph nodes Neuro: Drowsy but awakenable, speech nonfluent expressive aphasia Left-sided hemiparesis motor strength three to 4/5 Sensory-changes of DPN as before PSYCH: Affect mildly depressed-denies suicidal ideation laboratory and microbiology Laboratory Tests 04/05/24 05:20 Test 04/05/24 05:20 Range/Units Serum Glucose 136 H 74-106 mg/dL Problem List 1. Status post laparoscopy Evacuation of biloma, drainage of abscess and lysis of adhesions 2. Status post Acute cholecystitis Complicated by biloma, abscess and adhesions 3. Leukocytosis 4. 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 Fairly well-controlled diabetes and hypertension 2' Diagnosis/Comorbidities Noncompliance with medical recommendations Doppler lower Assessment/Plan Medical decision making The patient remains hemodynamically stable and afebrile on postop day 3 He reports to her postsurgical pains from laparoscopic cholecystectomy, evacuation of biloma, abscess and lysis of adhesions * Noted yellow krishna/serous drainage GLORIA drain in amount of 40 ml which is Significantly improved as compared to previous high 340 mL 48 hours ago * Continued on IV hydration and IV antibiotics-Rocephin and Flagyl * Receives IV Dilaudid for postsurgical pains * Currently followed by Dr. Raul Barroso as Infectious Dz, Dr. Vinnie Acosta from General surgery and Dr. Adriel Mcarthur from Cardiology * Currently on full liquid diet we will switch to regular mechanical diet once cleared by Dr. Vinnie Acosta Treatment Plans Continue hospital stay at telemetry Continue IV hydration, IV antibiotics parenteral analgesics Receives daily nursing care Reviewed input of Dr. Vinnie Acosta and operative report Reviewed input of Dr. Raul Barroso infectious disease and Dr. Adriel Mcarthur Cardiology Blood cultures p.r.n. temp 101.5 x3 Reviewed input of [facility] [employer]CHNICIAN-GI consult Reconciled home meds VTE precautions Update patient The patient and and his were well informed by me about 1. Clinical impression, treatment plans, side effects of medications, course of the disease and guarded prognosis 2. All patient's question/ concerns raised by patient are satisfactorily addressed by me Total time spent 40 minutes 40% of time spent interviewing the patient and physical exam 30% of time spent in gathering lab datas and imaging studies 30 % of time is spent in patient education Prognosis Fair Dietary Evaluation Review Recommendations by RD: Dietary education by RD Comments: 1. Recommend timely diet advancement to Low Fat diet s/p cholecystectomy 2. May consider Ensure Clear supplements TID in the interim appropriate for current diet order to optimize nutrition (250 kcal, 8 gm pro, 0 gm fat/carton) 3. Consulted for TPN/EN: TPN is not clinically indicated at this time due to functional GI tract; should nutrition support be desired, would recommend tube feeding with peptide-based, hydrolyzed formula for improved tolerance - however, advise oral diet trial prior to initiating nutrition support measures Expected Outcomes/Goals: Diet advancement, improved nutritional status, post-op healing Plan discussed with: Spouse Total Time (mins): 40 ALLA BARROSO MD Apr 05, 2024 20:42
[2024-04-06] VITALS (8 sets, daily range): BP systolic 92–116; BP diastolic 44–71; PULSE 84–104; RESP 16–19; TEMP 97.6–99; O2SAT 90–98
--- NOTE | 2024-04-06 10:46 | DVHPN2 ---
Progress Note - Surgical Date Seen: Apr 06, 2024 Post op day Post op day: 4 Subjective Patient reports: No new complaints, Feels better Review of Systems: HEENT:Normal, CVS:Normal, RESPIRATORY:Normal, GI:Normal, :Normal Objective Vital signs Vital Sign Date Time Temp Pulse Resp B/P (MAP) Pulse Ox O2 Delivery O2 Flow Rate FiO2 04/06/24 09:00 98.0 104 17 92/44 (60) 90 98.0 04/05/24 20:00 Room Air* 0 21 Total Intake and Output 04/05/24 04/05/24 04/06/24 15:00 23:00 07:00 Intake Total 800 ml 100 ml 600 ml Output Total 800 ml Balance 800 ml 100 ml -200 ml Medications Current Medications Medications Dose Ordered Sig/Aruna Route Start Time Stop Time Status Last Admin Dose Admin Ceftriaxone Sodium/Dextrose 50 ml @ 50 mls/hr DAILY@2100 IV 04/04/24 21:00 Cancel Metronidazole 100 ml @ 100 mls/hr Q8HR IV 04/04/24 06:00 Cancel Ondansetron HCl 4 mg Q4HPRN PRN IV 04/03/24 22:45 Pantoprazole Sodium 40 mg DAILY IV 04/04/24 10:00 04/06/24 09:32 40 MG Atorvastatin Calcium 40 mg HS PO 04/04/24 22:00 04/05/24 22:31 40 MG Aspirin 81 mg DAILY PO 04/04/24 10:00 04/06/24 09:33 81 MG Diagnostic Test (Pha) 1 strip ACHS 04/04/24 07:00 04/06/24 07:12 1 STRIP Insulin Human Regular HS SC 04/04/24 22:00 04/05/24 22:33 2 UNITS Insulin Human Regular AC SC 04/04/24 07:00 04/05/24 17:20 2 UNITS Dextrose 50 ml UD PRN IV 04/03/24 22:45 Nitroglycerin 0.4 mg Q5MINP PRN SL 04/03/24 22:45 Potassium Chloride/Dextrose/ Sod Cl 1,000 ml @ 100 mls/hr Q10H IV 04/04/24 00:15 04/06/24 06:54 100 MLS/HR Hydromorphone HCl 0.4 mg Q3HPRN PRN IV 04/04/24 00:15 04/05/24 02:58 0.4 MG Hydromorphone HCl 0.8 mg Q3HPRN PRN IV 04/04/24 00:15 04/05/24 23:32 0.8 MG Piperacillin Sod/ Tazobactam Sod 100 ml @ 25 mls/hr Q8HR@0100,0900,1700 IV 04/04/24 01:00 04/06/24 09:33 25 MLS/HR Docusate Sodium 100 mg BIDP PO 04/05/24 10:00 04/06/24 09:32 100 MG Laboratory Laboratory Tests 04/05/24 05:20 Test 04/05/24 05:20 Range/Units Serum Glucose 136 H 74-106 mg/dL Microbiology Date/Time Source Procedure Growth Status 04/02/24 17:16 Nose MRSA Screen - Final Complete 04/02/24 13:00 Gallbladder Fluid Anaerobic Culture - Preliminary Resulted 04/02/24 13:00 Aerobic Culture - Final Pseudomonas aeruginosa Enterobacter aerogenes Resulted Examination: GENERAL:Normal, HEENT:Normal, NECK:Normal, LUNGS:Normal, CVS:Normal, ABDOMEN:Abnormal (GLORIA drains) Problem List/Assessment/Plan Problems: (1) Acute cholecystitis (2) S/P cholecystectomy Assessment and Plan no new complaints abdomen soft , non distended, appropriately tender wounds clean dry and intact GLORIA drains about 150cc serous/brown fluid Plan: continue with current treatment continue IV antibiotics pain control ok to downgrade to telemetry with a sitter Dr. Marin agrees with Plan 04/06/2024 no new complaints abdomen soft , non distended, appropriately tender wounds clean dry and intact GLORIA drains about 15cc serous/brown fluid tolerating diet Plan: continue current treatment IV antibiotics Plan discussed with Plan discussed with: Patient, Other (Dr. Marin) Visit Coding Surgery Date of Service if different f: Apr 06, 2024 Billing Provider: YOEL MARIN MD Surgery Visit Codes: [id number] INP/OBS CARE(HIGH) LAMAR CHOE NP Apr 06, 2024 10:46
--- NOTE | 2024-04-06 10:49 | DVHPN2 ---
Progress Note Date Seen: Apr 06, 2024 Resident Creating Document: LUZ MARINA FINLEY RESIDENT Has the PT tested + for MRSA If YES, has PT been informed?: No Medical Necessity Reason Pt with a Central, PICC or Fol: No Subjective Review of Systems Patient seen and examined at bedside. Patient is tolerating diet. Around 20 mL output obvious serosanguineous fluid from GLORIA drain. Had bowel movement few hours ago. No new complaints. Denying fever, chills, nausea, vomiting, diarrhea. Objective vital signs Vital Sign Date Time Temp Pulse Resp B/P (MAP) Pulse Ox O2 Delivery O2 Flow Rate FiO2 04/06/24 09:00 98.0 104 17 92/44 (60) 90 98.0 04/05/24 20:00 Room Air* 0 21 Total Intake and Output 04/05/24 04/05/24 04/06/24 15:00 23:00 07:00 Intake Total 800 ml 100 ml 600 ml Output Total 800 ml Balance 800 ml 100 ml -200 ml medications Current Medications Medications Dose Ordered Sig/Aruna Route Start Time Stop Time Status Last Admin Dose Admin Ceftriaxone Sodium/Dextrose 50 ml @ 50 mls/hr DAILY@2100 IV 04/04/24 21:00 Cancel Metronidazole 100 ml @ 100 mls/hr Q8HR IV 04/04/24 06:00 Cancel Ondansetron HCl 4 mg Q4HPRN PRN IV 04/03/24 22:45 Pantoprazole Sodium 40 mg DAILY IV 04/04/24 10:00 04/06/24 09:32 40 MG Atorvastatin Calcium 40 mg HS PO 04/04/24 22:00 04/05/24 22:31 40 MG Aspirin 81 mg DAILY PO 04/04/24 10:00 04/06/24 09:33 81 MG Diagnostic Test (Pha) 1 strip ACHS 04/04/24 07:00 04/06/24 07:12 1 STRIP Insulin Human Regular HS SC 04/04/24 22:00 04/05/24 22:33 2 UNITS Insulin Human Regular AC SC 04/04/24 07:00 04/05/24 17:20 2 UNITS Dextrose 50 ml UD PRN IV 04/03/24 22:45 Nitroglycerin 0.4 mg Q5MINP PRN SL 04/03/24 22:45 Potassium Chloride/Dextrose/ Sod Cl 1,000 ml @ 100 mls/hr Q10H IV 04/04/24 00:15 04/06/24 06:54 100 MLS/HR Hydromorphone HCl 0.4 mg Q3HPRN PRN IV 04/04/24 00:15 04/05/24 02:58 0.4 MG Hydromorphone HCl 0.8 mg Q3HPRN PRN IV 04/04/24 00:15 04/05/24 23:32 0.8 MG Piperacillin Sod/ Tazobactam Sod 100 ml @ 25 mls/hr Q8HR@0100,0900,1700 IV 04/04/24 01:00 04/06/24 09:33 25 MLS/HR Docusate Sodium 100 mg BIDP PO 04/05/24 10:00 04/06/24 09:32 100 MG Examination General Appearance: Alert, Oriented X3, Cooperative, No acute distress HEENT: Atraumatic, PERRLA, EOMI, Mucous membrane moist/pink Respiratory: Clear to auscultation, Normal air movement Cardiovascular: Regular rate, Normal S1, Normal S2, No murmurs, no chest wall tenderness Abdominal: Normal bowel sounds, Soft, tenderness around the incision site, No hepatospenomegaly, No masses Extremities: No clubbing, No cyanosis, No edema, Normal pulses, No tenderness/swelling Skin: No rashes, No breakdown, No significant lesion Neuro: Normal speech, Strength at 5/5 X4 ext, Normal tone, Sensation intact, grossly intact cranial nerves. Psych/Mental Status: Mental status NL, Mood NL laboratory and microbiology Laboratory Tests 04/05/24 05:20 Test 04/05/24 05:20 Range/Units Serum Glucose 136 H 74-106 mg/dL Microbiology Date/Time Source Procedure Growth Status 04/02/24 17:16 Nose MRSA Screen - Final Complete 04/02/24 13:00 Gallbladder Fluid Anaerobic Culture - Preliminary Resulted 04/02/24 13:00 Aerobic Culture - Final Pseudomonas aeruginosa Enterobacter aerogenes Resulted Problem List/Assessment/Plan Problem List/Assessment/Plan # S/P Laparoscopy, evacuation of right upper quadrant biloma and abscess evacuation of myriad of small black gallstones, cholecystectomy, day 3 # Right upper quadrant pain likely secondary to acute cholecystitis # acute cholecystitis with cholelithiasis # s/p percutaneous transhepatic biliary drainage # Transaminitis without hyperbilirubinemia # History of obstructive jaundice with choledocholithiasis # History of CVA with left-sided hemiparesis Plan: Dr Henley -continue current management. IV antibiotic as per primary and Infectious Disease. -tolerating diet. Advanced as tolerated. Currently on full lipid diet -Surgery and infectious disease on board -Follow surgical recommendation regarding advancement of diet and clear for discharge. -Physical therapy as tolerated. -continue monitor labs. -we will continue to follow up with this patient. Plan discussed with: Patient, Other (RN) Dietary Evaluation Review Recommendations by RD: Dietary education by RD Comments: 1. Recommend timely diet advancement to Low Fat diet s/p cholecystectomy 2. May consider Ensure Clear supplements TID in the interim appropriate for current diet order to optimize nutrition (250 kcal, 8 gm pro, 0 gm fat/carton) 3. Consulted for TPN/EN: TPN is not clinically indicated at this time due to functional GI tract; should nutrition support be desired, would recommend tube feeding with peptide-based, hydrolyzed formula for improved tolerance - however, advise oral diet trial prior to initiating nutrition support measures Expected Outcomes/Goals: Diet advancement, improved nutritional status, post-op healing LUZ MARINA FINLEY RESIDENT Apr 06, 2024 10:49
--- NOTE | 2024-04-06 13:17 | DVHPN2 ---
Progress Note - Dictate Date Seen: Apr 06, 2024 Has the PT tested + for MRSA If YES, has PT been informed?: No Medical Necessity Reason Pt with a Central, PICC or Fol: No Medical Necessity Reason Postoperative care IV antibiotics Parenteral analgesics Subjective The patient is seen at Rm [id number] Patient requested receive shower bath. Refused sponge bath Also wants to receive regular mechanical diet Patient is seen on postop Day 4 of laparoscopic Cholecystectomy * Remains hemodynamically stable and afebrile * Currently receives IV fluids and IV antibiotics, parenteral analgesics for Postsurgical pains management * Currently followed by Dr. Vinnie acosta from General surgery, Dr. Adriel Mcarthur cardiology and Dr. Raul Barroso infectious Disease Overnight events are reviewed through medical chart and case discussion with patient's assigned RN while making rounds on patient on the day of service vital signs Vital Sign Date Time Temp Pulse Resp B/P (MAP) Pulse Ox O2 Delivery O2 Flow Rate FiO2 04/06/24 09:00 98.0 104 17 92/44 (60) 90 98.0 04/06/24 08:00 Room Air* 0 21 Total Intake and Output 04/05/24 04/05/24 04/06/24 15:00 23:00 07:00 Intake Total 800 ml 100 ml 600 ml Output Total 800 ml Balance 800 ml 100 ml -200 ml medications Current Medications Medications Dose Ordered Sig/Aruna Route Start Time Stop Time Status Last Admin Dose Admin Ceftriaxone Sodium/Dextrose 50 ml @ 50 mls/hr DAILY@2100 IV 04/04/24 21:00 Cancel Metronidazole 100 ml @ 100 mls/hr Q8HR IV 04/04/24 06:00 Cancel Ondansetron HCl 4 mg Q4HPRN PRN IV 04/03/24 22:45 Pantoprazole Sodium 40 mg DAILY IV 04/04/24 10:00 04/06/24 09:32 40 MG Atorvastatin Calcium 40 mg HS PO 04/04/24 22:00 04/05/24 22:31 40 MG Aspirin 81 mg DAILY PO 04/04/24 10:00 04/06/24 09:33 81 MG Diagnostic Test (Pha) 1 strip ACHS 04/04/24 07:00 04/06/24 11:30 1 STRIP Insulin Human Regular HS SC 04/04/24 22:00 04/05/24 22:33 2 UNITS Insulin Human Regular AC SC 04/04/24 07:00 04/06/24 11:30 3 UNITS Dextrose 50 ml UD PRN IV 04/03/24 22:45 Nitroglycerin 0.4 mg Q5MINP PRN SL 04/03/24 22:45 Potassium Chloride/Dextrose/ Sod Cl 1,000 ml @ 100 mls/hr Q10H IV 04/04/24 00:15 04/06/24 06:54 100 MLS/HR Hydromorphone HCl 0.4 mg Q3HPRN PRN IV 04/04/24 00:15 04/05/24 02:58 0.4 MG Hydromorphone HCl 0.8 mg Q3HPRN PRN IV 04/04/24 00:15 04/05/24 23:32 0.8 MG Piperacillin Sod/ Tazobactam Sod 100 ml @ 25 mls/hr Q8HR@0100,0900,1700 IV 04/04/24 01:00 04/06/24 09:33 25 MLS/HR Docusate Sodium 100 mg BIDP PO 04/05/24 10:00 04/06/24 09:32 100 MG objective Physical Exam General appearance: Well-developed, well-nourished middle-aged male Noted drowsy but awakenable, Reports post surgical pains Head: Normocephalic nontraumatic Eyes: EOMI, ALIE, sclera nonicteric, conjunctive- pale ENT: No congestion, NSL bilateral symmetrical, oral mucosa wet Neck: Supple, carotid upstroke +2, trachea midline, JVD 2 cm No goiter/stridor, no lymph nodes JVD-3 cm, C spine- Full ROM No use of sternomastoid muscle Chest: Bilateral symmetrical expansions, no costochondral tenderness Lungs: clear breath sounds all over except reduced at bases CVS: PMI-1 cm medial to L MCL in fifth ICS , S1-S2 NSR no S3 GI: Abdomen soft, obese, bowel sounds hypoactive RUQ-postsurgical wound -feels tender, stain with sanguinous fluid, GLORIA drain-sanguinous discharge RUQ tenderness, no rebound tenderness No hepatosplenomegaly, no mass no hernia , : No CVA tenderness, no bladder mass palpable, genitalia-NE SKIN: Turgor dry, color pink, no rash, no icterus, No varicosity, no ulcers or wounds EXTs: No edema, color pink, no rash, no ecchymosis distal pulses +2 capillary refill <2 seconds, No open wounds JOINTS; full range of motion BACK: No apparent lumbosacral spinal muscle tenderness, LYMPH NODES: No cervical, axillary or inguinal lymph nodes Neuro: Drowsy but awakenable, speech nonfluent expressive aphasia Left-sided hemiparesis motor strength three to 4/5 Sensory-changes of DPN as before PSYCH: Affect mildly depressed-denies suicidal ideation laboratory and microbiology Laboratory Tests 04/05/24 05:20 Test 04/05/24 05:20 Range/Units Serum Glucose 136 H 74-106 mg/dL Problem List 1. Status post laparoscopy............................................ Postop day 4 Evacuation of biloma, drainage of abscess and lysis of adhesions 2. Status post Acute cholecystitis Complicated by biloma, abscess and adhesions 3. Leukocytosis 4. 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 Fairly well-controlled diabetes and hypertension 2' Diagnosis/Comorbidities Noncompliance with medical recommendations Doppler lower Assessment/Plan Medical decision making The patient remains hemodynamically stable and afebrile on postop day 4 He requests to receive with shower bath. Explained the patient about his unsteady erect posture from CVA and limitation of receiving shower bath for High risk of falling out of post surgical drain * Recommended patient to receive sponge bath * Noted yellow krishna/serous drainage GLORIA drain in amount of 40 ml which is Significantly improved as compared to previous high 340 mL 48 hours ago * Continued on IV hydration and IV antibiotics-Rocephin and Flagyl * Receives IV Dilaudid for postsurgical pains * Currently followed by Dr. Raul Barroso as Infectious Dz, Dr. Vinnie Acosta from General surgery and Dr. Adriel Mcarthur from Cardiology * Currently on full liquid diet we will switch to regular mechanical diet once cleared by Dr. Vinnie Acosta Treatment Plans Continue hospital stay at telemetry Continue IV hydration, IV antibiotics parenteral analgesics Recommended sponge baths Reviewed input of Dr. Vinnie Acosta and operative report Reviewed input of Dr. Raul Barroso infectious disease and Dr. Adriel Mcarthur Cardiology Blood cultures p.r.n. temp 101.5 x3 Reviewed input of DEPOSIT CLERK-GI consult Reconciled home meds VTE precautions Update patient The patient and and his were well informed by me about 1. Clinical impression, treatment plans, side effects of medications, course of the disease and guarded prognosis 2. All patient's question/ concerns raised by patient are satisfactorily addressed by me Total time spent 40 minutes 40% of time spent interviewing the patient and physical exam 30% of time spent in gathering lab datas and imaging studies 30 % of time is spent in patient education Dietary Evaluation Review Recommendations by RD: Dietary education by RD Comments: 1. Recommend timely diet advancement to Low Fat diet s/p cholecystectomy 2. May consider Ensure Clear supplements TID in the interim appropriate for current diet order to optimize nutrition (250 kcal, 8 gm pro, 0 gm fat/carton) 3. Consulted for TPN/EN: TPN is not clinically indicated at this time due to functional GI tract; should nutrition support be desired, would recommend tube feeding with peptide-based, hydrolyzed formula for improved tolerance - however, advise oral diet trial prior to initiating nutrition support measures Expected Outcomes/Goals: Diet advancement, improved nutritional status, post-op healing Plan discussed with: Patient Total Time (mins): 40 ALLA BARROOS MD Apr 06, 2024 13:17
--- NOTE | 2024-04-06 18:15 | DVHPN2 ---
Progress Note - Dictate Date Seen: Apr 06, 2024 Has the PT tested + for MRSA If YES, has PT been informed?: No Medical Necessity Reason Pt with a Central, PICC or Fol: No Subjective Patient was seen and evaluated in follow up. Patient has been downgraded. Patient is complaining of abdominal discomfort. GLORIA drain had 20 ml serosanguineous fluid output. Patient had a BM. Patient's diet is being advanced. Telemetry reviewed. vital signs Vital Sign Date Time Temp Pulse Resp B/P (MAP) Pulse Ox O2 Delivery O2 Flow Rate FiO2 04/06/24 13:00 99.0 100 16 100/47 (64) 98 99.0 04/06/24 08:00 Room Air* 0 21 Total Intake and Output 04/05/24 04/05/24 04/06/24 15:00 23:00 07:00 Intake Total 800 ml 100 ml 600 ml Output Total 800 ml Balance 800 ml 100 ml -200 ml medications Current Medications Medications Dose Ordered Sig/Aruna Route Start Time Stop Time Status Last Admin Dose Admin Ceftriaxone Sodium/Dextrose 50 ml @ 50 mls/hr DAILY@2100 IV 04/04/24 21:00 Cancel Metronidazole 100 ml @ 100 mls/hr Q8HR IV 04/04/24 06:00 Cancel Ondansetron HCl 4 mg Q4HPRN PRN IV 04/03/24 22:45 Pantoprazole Sodium 40 mg DAILY IV 04/04/24 10:00 04/06/24 09:32 40 MG Atorvastatin Calcium 40 mg HS PO 04/04/24 22:00 04/05/24 22:31 40 MG Aspirin 81 mg DAILY PO 04/04/24 10:00 04/06/24 09:33 81 MG Diagnostic Test (Pha) 1 strip ACHS 04/04/24 07:00 04/06/24 11:30 1 STRIP Insulin Human Regular HS SC 04/04/24 22:00 04/05/24 22:33 2 UNITS Insulin Human Regular AC SC 04/04/24 07:00 04/06/24 11:30 3 UNITS Dextrose 50 ml UD PRN IV 04/03/24 22:45 Nitroglycerin 0.4 mg Q5MINP PRN SL 04/03/24 22:45 Potassium Chloride/Dextrose/ Sod Cl 1,000 ml @ 100 mls/hr Q10H IV 04/04/24 00:15 04/06/24 06:54 100 MLS/HR Hydromorphone HCl 0.4 mg Q3HPRN PRN IV 04/04/24 00:15 04/05/24 02:58 0.4 MG Hydromorphone HCl 0.8 mg Q3HPRN PRN IV 04/04/24 00:15 04/05/24 23:32 0.8 MG Piperacillin Sod/ Tazobactam Sod 100 ml @ 25 mls/hr Q8HR@0100,0900,1700 IV 04/04/24 01:00 04/06/24 09:33 25 MLS/HR Docusate Sodium 100 mg BIDP PO 04/05/24 10:00 04/06/24 09:32 100 MG objective GENERAL: Awake, alert, oriented. LUNGS: Clear. CARDIOVASCULAR: Heart sounds are good. ABDOMEN: Soft. RUQ TTP. laboratory and microbiology Laboratory Tests 04/05/24 05:20 Test 04/05/24 05:20 Range/Units Serum Glucose 136 H 74-106 mg/dL Problem List Acute RUQ abdominal pain. Acute cholecystitis. Recent history of choledocholithiasis and obstructive jaundice. Status post percutaneous transhepatic biliary drainage. Hypovolemia. Right CVA with left-sided hemiparesis. Diabetes. Hypertension. Noncompliance with medical recommendations. Assessment/Plan Continued all current supportive medical care. Aspirin, Lipitor. IV antibiotics as ordered. Dilaudid for pain management. Additional plan as per the hospital course. Dietary Evaluation Review Recommendations by RD: Dietary education by RD Comments: 1. Recommend timely diet advancement to Low Fat diet s/p cholecystectomy 2. May consider Ensure Clear supplements TID in the interim appropriate for current diet order to optimize nutrition (250 kcal, 8 gm pro, 0 gm fat/carton) 3. Consulted for TPN/EN: TPN is not clinically indicated at this time due to functional GI tract; should nutrition support be desired, would recommend tube feeding with peptide-based, hydrolyzed formula for improved tolerance - however, advise oral diet trial prior to initiating nutrition support measures Expected Outcomes/Goals: Diet advancement, improved nutritional status, post-op healing Plan discussed with: Patient ANITRA HOOD MD Apr 06, 2024 13:56
--- NOTE | 2024-04-06 19:29 | DVHPN2 ---
Consult Progress Note Date Seen: Apr 06, 2024 Subjective Patient reports: Other (diet has advanced to liquid diet and tolerating well , has 20ccs of output from GLORIA drains ) Objective vital signs Vital Sign Date Time Temp Pulse Resp B/P (MAP) Pulse Ox O2 Delivery O2 Flow Rate FiO2 04/06/24 17:00 97.6 88 18 94/55 (68) 96 97.6 04/06/24 08:00 Room Air* 0 21 Total Intake and Output 04/05/24 04/05/24 04/06/24 15:00 23:00 07:00 Intake Total 800 ml 100 ml 600 ml Output Total 800 ml Balance 800 ml 100 ml -200 ml medications Current Medications Medications Dose Ordered Sig/Aruna Route Start Time Stop Time Status Last Admin Dose Admin Ceftriaxone Sodium/Dextrose 50 ml @ 50 mls/hr DAILY@2100 IV 04/04/24 21:00 Cancel Metronidazole 100 ml @ 100 mls/hr Q8HR IV 04/04/24 06:00 Cancel Ondansetron HCl 4 mg Q4HPRN PRN IV 04/03/24 22:45 Pantoprazole Sodium 40 mg DAILY IV 04/04/24 10:00 04/06/24 09:32 40 MG Atorvastatin Calcium 40 mg HS PO 04/04/24 22:00 04/05/24 22:31 40 MG Aspirin 81 mg DAILY PO 04/04/24 10:00 04/06/24 09:33 81 MG Diagnostic Test (Pha) 1 strip ACHS 04/04/24 07:00 04/06/24 17:00 1 STRIP Insulin Human Regular HS SC 04/04/24 22:00 04/05/24 22:33 2 UNITS Insulin Human Regular AC SC 04/04/24 07:00 04/06/24 17:00 2 UNITS Dextrose 50 ml UD PRN IV 04/03/24 22:45 Nitroglycerin 0.4 mg Q5MINP PRN SL 04/03/24 22:45 Potassium Chloride/Dextrose/ Sod Cl 1,000 ml @ 100 mls/hr Q10H IV 04/04/24 00:15 04/06/24 14:17 100 MLS/HR Hydromorphone HCl 0.4 mg Q3HPRN PRN IV 04/04/24 00:15 04/05/24 02:58 0.4 MG Hydromorphone HCl 0.8 mg Q3HPRN PRN IV 04/04/24 00:15 04/05/24 23:32 0.8 MG Piperacillin Sod/ Tazobactam Sod 100 ml @ 25 mls/hr Q8HR@0100,0900,1700 IV 04/04/24 01:00 04/06/24 17:35 25 MLS/HR Docusate Sodium 100 mg BIDP PO 04/05/24 10:00 04/06/24 09:32 100 MG Physical Exam: - General: NAD - Neck: Supple. No masses. - HEENT: PERRL. Normal lids and conjunctiva. Moist mucous membranes. Oropharynx without lesions, exudates, or excessive erythema. Normal appearance of the external aspects of the nose and ears. - Heart: Regular rhythm, normal rate. No murmur. No lower extremity edema. - Lungs: Normal respiratory effort. Clear to auscultation bilaterally. No wheezes. No crackles. - Abdomen: Mildly distended. Tenderness in the right upper quadrant with guarding. No masses or abdominal hernia. - MSK: No digital cyanosis. Open, non-draining foot wounds status post multiple debridements. Normal strength and tone in all 4 limbs. - Skin: Warm and dry. Rash noted. - Neuro: Alert. No facial droop or slurred speech. Extraocular movements intact. Sensation intact to soft touch in all 4 limbs. - Psych: Appropriate mood. Full affect. Oriented to person, place, time, and situation. laboratory and microbiology Laboratory Tests 04/05/24 05:20 Test 04/05/24 05:20 Range/Units Serum Glucose 136 H 74-106 mg/dL Problem List/Assessment/Plan Problems(with codes): (1) Diabetes (2) Acute cholecystitis (3) Sepsis (4) Abdominal pain (5) Hypotension (6) Hypertension Problem List/Assessment/Plan ID Problem List: - Cerebrovascular accident with left hand paresis - Bed confined - Uncontrolled diabetes mellitus - Hypercholesterolemia - Hypertension - Paroxysmal atrial fibrillation - Cholelithiasis - Cholecystitis - Recent right MCA stroke with mid-cervical occlusion of right ICA - Necrotic infections of bilateral feet, status post multiple debridements Assessment This is a 68 y.o. male with a past medical history of cerebrovascular accident with left hand paresis, uncontrolled diabetes mellitus, hypercholesterolemia, hypertension, paroxysmal atrial fibrillation on Eliquis, recent right MCA stroke with mid-cervical occlusion of the right internal carotid artery, and status post coronary artery bypass graft several years ago, who presents with right upper quadrant pain, obstructive jaundice, and failure to thrive. The patient has been experiencing intermittent right upper quadrant pain and obstructive jaundice. He previously underwent percutaneous transhepatic biliary drainage at [facility] several weeks ago (records pending). Currently, he exhibits poor appetite, significant weight loss, and signs of acute cholecystitis. Vital signs are notable for fever (Tmax 101.5F) and tachycardia. Physical examination reveals right upper quadrant tenderness with guarding, mildly distended abdomen, rash, and open, non-draining foot wounds status post multiple debridements. Laboratory studies show leukocytosis (WBC 11.7 K/L) and elevated creatinine (1.56 mg/dL). Imaging studies are consistent with acute cholecystitis and stercoral colitis. 04/01: whitecount is 10.4 , patients MRPC shows no intro or extra hepatic biliary ductal dilation , no MRI evidence of chololithiasis , gallbladder wall thickening suggest acute cholecystitis . abdominal ultrasound shows cholelithiasis 04/02: per operative note patient underwent a laparoscopic cholecystectomy procedure and was found fibrinous flegmon in the right upper quadrant which consisted of trezors coils momentum loops of bowel. the inflammation was exuberant and after dissecting the momentum from the fundus of the gallbladder became obious the patient had a rupture of the gallbladder which spilled a myriad of natalya stones which was then seaaled off by this momentum and contained in the biloma and a puss collection . cultures and sensitivities were obtained . the myriad little stones were aspirated and scooped up to the best of my ability and then the gallbladder was resected by circumferentially dissecting the cystic duct and cystic artery . no attempt was made to trace the cystic duct to the common duct due to the inflammation and ligament is like adhesions and concretions . area was irrigated . patient remains normal throughout the procedure but there were no complications however the choice of laparoscopic procedure was chosen due to patient having a poor overall health 04/03: patients is growing 2 gram negative rods from operative cultures , whitecount is 16 and has tachycardia to 107s 04/04: whitecount is 13/7 , operative cultures are growing pseudomonas and enterobacteria both having sensitivities to levofloxacin , passing flattis and tolerating clear liquid diet 04/05:whitecount is 13.7 2: whitecount is 13.7 and BP is soft with MAPS Plan: - given lack of bowel movements and low BP would repeat CT abdomen to ensure theirs no ongoing fluid collection that doesn't warrant additional drainage especially given pseudomanias cultures - oral regimen of levofloxacin 750 milligrams dialy and oral flagyl 500 milligrams every 8 hours for 1 moth may be an acceptable regimen however would like to see patients tachycardia resolve and continued improvement in clinical stability . alternatively if patient is to be discharged in next 1-2 days would recomend IV Zosyn continuous dosing VIA piccline for 1 month - follow up with infectious disease clinic in 4 weeks - follow up Ct imaging to confirm resolution of intraabdominal infection - defer post op management to general surgery -Continue Zosyn - follow up on gram negative rods species - if tachycardia and other signs of sepsis persists would consider getting blood cultures , broadening out gram negative coverage - keep blood sugars under 180 - in light of perative finding recommend once blood cultures are confirmed negative for patient to get a piccline and at least 6 weeks of IV antibiotics followed by a CT scan to confirm resolution of infection - follow up with infectious disease in 4 weeks - follow up on operative cultures results and antibiotics will be determined by results - Continue ceftriaxone and azithromycin empirically. - Patient is scheduled for urgent laparoscopic cholecystectomy. - Agree with this plan. - Ensure any necrotic specimens or infected inflammatory tissue are cultured and sent to pathology. - Monitor vital signs and laboratory markers closely. - Assess and manage foot wounds; consider obtaining cultures if signs of infection are present. - Obtain previous medical records from [facility]. - Maintain hydration and electrolyte balance. - Manage blood glucose levels to optimize glycemic control. - Continue home medications: atorvastatin, aspirin, and Eliquis. Isolation Precautions: Standard Plan discussed with: Other Dietary Evaluation Review Recommendations by RD: Dietary education by RD Comments: 1. Recommend timely diet advancement to Low Fat diet s/p cholecystectomy 2. May consider Ensure Clear supplements TID in the interim appropriate for current diet order to optimize nutrition (250 kcal, 8 gm pro, 0 gm fat/carton) 3. Consulted for TPN/EN: TPN is not clinically indicated at this time due to functional GI tract; should nutrition support be desired, would recommend tube feeding with peptide-based, hydrolyzed formula for improved tolerance - however, advise oral diet trial prior to initiating nutrition support measures Expected Outcomes/Goals: Diet advancement, improved nutritional status, post-op healing TRENT STRINGER MD Apr 06, 2024 19:29
[2024-04-07] VITALS (8 sets, daily range): BP systolic 94–106; BP diastolic 55–62; PULSE 86–95; RESP 0–19; TEMP 97.5–98.7; O2SAT 94–98
[2024-04-07 07:37] LABS: Basophils # (auto) 0.1 10 ^3/uL (0-0.2); Basophils % (auto) 0.5 % (0.0-2.0); Eosinophils # (auto) 0.2 10 ^3/uL (0-0.8); Eosinophils % (auto) 1.6 % (0.0-7.0); Hematocrit 33.2 % (41.0-53.0); Hemoglobin 11.1 g/dL (13.5-17.5); Lymphocytes # (auto) 2.7 10 ^3/uL (0.4-5.4); Lymphocytes % (auto) 25.3 % (10.0-50.0); Mean Corpuscular Hemoglobin 29.7 pg (28.0-32.0); Mean Corpuscular Hgb Conc. 33.4 g/dL (32.0-36.0); Mean Corpuscular Volume 88.8 fL (80.0-100.0); Monocytes # (auto) 0.7 10 ^3/uL (0-1.3); Monocytes % (auto) 6.6 % (0.0-12.0); Neutrophils # (auto) 7.1 10 ^3/uL (1.6-8.6); Platelet Count (auto) 373 10^3/uL (140-450); Red Blood Cells 3.74 10^6/uL (4.5-5.90); Red Cell Distribution Width 13.9 % (11.8-14.3); White Blood Cell 10.8 10^3/uL (4.4-10.8)
[2024-04-07 07:48] LABS: Alanine Aminotransferase 29 U/L (7-40); Albumin 3.8 g/dL (3.2-4.8); Alkaline Phosphatase 100 U/L (46-116); Anion Gap 10 (5-15); Aspartate Aminotransferase 23 U/L (13-40); Calcium 9.6 mg/dL (8.7-10.4); Carbon Dioxide 25 mmol/L (20-31); Chloride 106 mmol/L (98-107); Potassium 3.7 mmol/L (3.5-5.1); Sodium 141 mmol/L (136-145)
[2024-04-07 07:49] LABS: Bilirubin, Total 0.4 mg/dL (0.2-1.0)
[2024-04-07 07:51] LABS: Blood Urea Nitrogen 8 mg/dL (9-23); Glucose 114 mg/dL (74-106)
[2024-04-07] MEDS: GASTROGRAFIN 30 ML SOL ONE (09:00)
[2024-04-07] MEDS: IOHEXOL 300 MG/ML 100ML BOTTLE IJ ONE (11:55)
--- NOTE | 2024-04-07 12:28 | DVH ---
CT abdomen and pelvis with contrast INDICATION: evaluate for ongoing abdominal abscess sp surgery Comparison: 03/29/2024 TECHNIQUE: Following IV administration of 100 mL of Omnipaque 300 Serial axial images were performed through the abdomen and pelvis and then reformatted in the sagittal and coronal plane. FINDINGS: Patchy infiltrate left lower lung zone. There is a surgical drain in the right upper quadrant. There is free air and a small amount of free fluid present. Liver and spleen enhance homogeneously and are intact. Bilateral renal concentration and excretion without mass stone or hydronephrosis. Adrenals and pancreas unremarkable Gallbladder has been removed. There is postsurgical debris in the gallbladder fossa. No biliary dilat ation. Bowel nondistended Appendix not seen. In the pelvis the bladder is intact. Velazquez catheter in the urinary bladder. There is no free fluid pr esent. IMPRESSION: 1. [address] exam a surgical drain has been placed in the right upper quadrant. There remains postsurgical debris 2. In the gallbladder fossa. Small amount 3. Of free air and free fluid remains . Computed Tomographic Radiation Dosimetry Report: Total CTDI vol = 8 mGy Total DLP = 468 mGy-cm Low dose protocols were performed. All CT scans at this medical facility are performed using dose modulation techniques as appropriate t o a performed exam including the following: Automated exposure control was utilized; adjustment of the MA and/or KvP according to patient size; a nd use of iterative reconstruction technique.
--- NOTE | 2024-04-07 15:07 | DVHPN2 ---
Progress Note - Dictate Date Seen: Apr 07, 2024 Has the PT tested + for MRSA If YES, has PT been informed?: No Medical Necessity Reason Pt with a Central, PICC or Fol: No Subjective Patient was seen and evaluated in follow up. No overnight events. Patient is complaining of diffuse abdominal pain. CT abd/pel shows small amount of free air and free fluid remains in the gallbladder fossa. H&H stable. Patient tolerating diet. Telemetry reviewed. vital signs Vital Sign Date Time Temp Pulse Resp B/P (MAP) Pulse Ox O2 Delivery O2 Flow Rate FiO2 04/07/24 12:32 98.7 91 16 100/61 (74) 98 98.7 04/07/24 08:00 Room Air* 0 21 Total Intake and Output 04/06/24 04/06/24 04/07/24 15:00 23:00 07:00 Intake Total 100 ml 600 ml 400 ml Output Total 1250 ml 600 ml Balance 100 ml -650 ml -200 ml medications Current Medications Medications Dose Ordered Sig/Aruna Route Start Time Stop Time Status Last Admin Dose Admin Ceftriaxone Sodium/Dextrose 50 ml @ 50 mls/hr DAILY@2100 IV 04/04/24 21:00 Cancel Metronidazole 100 ml @ 100 mls/hr Q8HR IV 04/04/24 06:00 Cancel Ondansetron HCl 4 mg Q4HPRN PRN IV 04/03/24 22:45 Pantoprazole Sodium 40 mg DAILY IV 04/04/24 10:00 04/07/24 09:10 40 MG Atorvastatin Calcium 40 mg HS PO 04/04/24 22:00 04/06/24 22:53 40 MG Aspirin 81 mg DAILY PO 04/04/24 10:00 04/07/24 09:11 81 MG Diagnostic Test (Pha) 1 strip ACHS 04/04/24 07:00 04/07/24 06:16 1 STRIP Insulin Human Regular HS SC 04/04/24 22:00 04/06/24 22:54 2 UNITS Insulin Human Regular AC SC 04/04/24 07:00 04/06/24 17:00 2 UNITS Dextrose 50 ml UD PRN IV 04/03/24 22:45 Nitroglycerin 0.4 mg Q5MINP PRN SL 04/03/24 22:45 Potassium Chloride/Dextrose/ Sod Cl 1,000 ml @ 100 mls/hr Q10H IV 04/04/24 00:15 04/07/24 09:11 100 MLS/HR Hydromorphone HCl 0.4 mg Q3HPRN PRN IV 04/04/24 00:15 04/05/24 02:58 0.4 MG Hydromorphone HCl 0.8 mg Q3HPRN PRN IV 04/04/24 00:15 04/05/24 23:32 0.8 MG Piperacillin Sod/ Tazobactam Sod 100 ml @ 25 mls/hr Q8HR@0100,0900,1700 IV 04/04/24 01:00 04/07/24 09:10 25 MLS/HR Docusate Sodium 100 mg BIDP PO 04/05/24 10:00 04/07/24 09:10 100 MG objective GENERAL: Awake, alert, oriented. LUNGS: Clear. CARDIOVASCULAR: Heart sounds are good. ABDOMEN: Soft. RUQ TTP. laboratory and microbiology Laboratory Tests 04/07/24 05:20 Test 04/07/24 05:20 Range/Units Serum Glucose 114 H 74-106 mg/dL Problem List Acute RUQ abdominal pain. Acute cholecystitis. Recent history of choledocholithiasis and obstructive jaundice. Status post percutaneous transhepatic biliary drainage. Hypovolemia. Right CVA with left-sided hemiparesis. Diabetes. Hypertension. Noncompliance with medical recommendations. Assessment/Plan Continued all current supportive medical care. Aspirin, Lipitor. IV antibiotics as ordered. Dilaudid for pain management. Additional plan as per the hospital course. Dietary Evaluation Review Recommendations by RD: Dietary education by RD Comments: 1. Recommend timely diet advancement to Low Fat diet s/p cholecystectomy 2. May consider Ensure Clear supplements TID in the interim appropriate for current diet order to optimize nutrition (250 kcal, 8 gm pro, 0 gm fat/carton) 3. Consulted for TPN/EN: TPN is not clinically indicated at this time due to functional GI tract; should nutrition support be desired, would recommend tube feeding with peptide-based, hydrolyzed formula for improved tolerance - however, advise oral diet trial prior to initiating nutrition support measures Expected Outcomes/Goals: Diet advancement, improved nutritional status, post-op healing Plan discussed with: Patient ANITRA HOOD MD Apr 07, 2024 15:07
--- NOTE | 2024-04-07 16:03 | DVHPN2 ---
Progress Note Date Seen: Apr 07, 2024 Resident Creating Document: ENRIQUE YORK RESIDENT Has the PT tested + for MRSA If YES, has PT been informed?: No Medical Necessity Reason Pt with a Central, PICC or Fol: No Subjective Review of Systems Patient seen and examined at bedside. Patient is tolerating diet. Around 40 mL output obvious serosanguineous fluid from GLORIA drain. Had bowel movement yesterday. No new complaints. Denying fever, chills, nausea, vomiting, diarrhea. Objective vital signs Vital Sign Date Time Temp Pulse Resp B/P (MAP) Pulse Ox O2 Delivery O2 Flow Rate FiO2 04/07/24 12:32 98.7 91 16 100/61 (74) 98 98.7 04/07/24 08:00 Room Air* 0 21 Total Intake and Output 04/06/24 04/06/24 04/07/24 15:00 23:00 07:00 Intake Total 100 ml 600 ml 400 ml Output Total 1250 ml 600 ml Balance 100 ml -650 ml -200 ml medications Current Medications Medications Dose Ordered Sig/Aruna Route Start Time Stop Time Status Last Admin Dose Admin Ceftriaxone Sodium/Dextrose 50 ml @ 50 mls/hr DAILY@2100 IV 04/04/24 21:00 Cancel Metronidazole 100 ml @ 100 mls/hr Q8HR IV 04/04/24 06:00 Cancel Ondansetron HCl 4 mg Q4HPRN PRN IV 04/03/24 22:45 Pantoprazole Sodium 40 mg DAILY IV 04/04/24 10:00 04/07/24 09:10 40 MG Atorvastatin Calcium 40 mg HS PO 04/04/24 22:00 04/06/24 22:53 40 MG Aspirin 81 mg DAILY PO 04/04/24 10:00 04/07/24 09:11 81 MG Diagnostic Test (Pha) 1 strip ACHS 04/04/24 07:00 04/07/24 06:16 1 STRIP Insulin Human Regular HS SC 04/04/24 22:00 04/06/24 22:54 2 UNITS Insulin Human Regular AC SC 04/04/24 07:00 04/06/24 17:00 2 UNITS Dextrose 50 ml UD PRN IV 04/03/24 22:45 Nitroglycerin 0.4 mg Q5MINP PRN SL 04/03/24 22:45 Potassium Chloride/Dextrose/ Sod Cl 1,000 ml @ 100 mls/hr Q10H IV 04/04/24 00:15 04/07/24 09:11 100 MLS/HR Hydromorphone HCl 0.4 mg Q3HPRN PRN IV 04/04/24 00:15 04/05/24 02:58 0.4 MG Hydromorphone HCl 0.8 mg Q3HPRN PRN IV 04/04/24 00:15 04/05/24 23:32 0.8 MG Piperacillin Sod/ Tazobactam Sod 100 ml @ 25 mls/hr Q8HR@0100,0900,1700 IV 04/04/24 01:00 04/07/24 09:10 25 MLS/HR Docusate Sodium 100 mg BIDP PO 04/05/24 10:00 04/07/24 09:10 100 MG Examination Physical examination: General Appearance: Alert, Oriented X3, Cooperative, No acute distress HEENT: Atraumatic, PERRLA, EOMI, Mucous membrane moist/pink Respiratory: Clear to auscultation, Normal air movement Cardiovascular: Regular rate, Normal S1, Normal S2, No murmurs, no chest wall tenderness Abdominal: Normal bowel sounds, Soft, mild tenderness around the incision site, No hepatospenomegaly, No masses Extremities: No clubbing, No cyanosis, No edema, Normal pulses, No tenderness/swelling Skin: No rashes, No breakdown, No significant lesion Neuro: Normal speech, Strength at 5/5 X4 ext, Normal tone, Sensation intact, grossly intact cranial nerves. Psych/Mental Status: Mental status NL, Mood NL laboratory and microbiology Laboratory Tests 04/07/24 05:20 Test 04/07/24 05:20 Range/Units Serum Glucose 114 H 74-106 mg/dL Microbiology Date/Time Source Procedure Growth Status 04/02/24 17:16 Nose MRSA Screen - Final Complete 04/02/24 13:00 Gallbladder Fluid Anaerobic Culture - Final Complete 04/02/24 13:00 Aerobic Culture - Final Pseudomonas aeruginosa Enterobacter aerogenes Complete Labs and/or images reviewed: Labs reviewed by me, Image(s) reviewed by me Problem List/Assessment/Plan Problem List/Assessment/Plan Assessment: # S/P Laparoscopy, evacuation of right upper quadrant biloma and abscess evacuation of myriad of small black gallstones, cholecystectomy, day 5 # Right upper quadrant pain likely secondary to acute cholecystitis # acute cholecystitis with cholelithiasis # s/p percutaneous transhepatic biliary drainage # Transaminitis without hyperbilirubinemia # History of obstructive jaundice with choledocholithiasis # History of CVA with left-sided hemiparesis Plan: - Full liquid diet - Downgraded to Telemetry. - continue IV antibiotic as per primary team - Surgery and infectious disease in board - Follow surgical recommendation regarding advancement of diet and clearance for discharge. - Physical therapy as tolerated. - monitor liver enzymes and bilirubin Plan discussed with Dr. Henley Plan discussed with: Patient, Other Dietary Evaluation Review Recommendations by RD: Dietary education by RD Comments: 1. Recommend timely diet advancement to Low Fat diet s/p cholecystectomy 2. May consider Ensure Clear supplements TID in the interim appropriate for current diet order to optimize nutrition (250 kcal, 8 gm pro, 0 gm fat/carton) 3. Consulted for TPN/EN: TPN is not clinically indicated at this time due to functional GI tract; should nutrition support be desired, would recommend tube feeding with peptide-based, hydrolyzed formula for improved tolerance - however, advise oral diet trial prior to initiating nutrition support measures Expected Outcomes/Goals: Diet advancement, improved nutritional status, post-op healing ENRIQUE YORK RESIDENT Apr 07, 2024 16:03
--- NOTE | 2024-04-07 19:33 | DVHPN2 ---
Progress Note - Dictate Date Seen: Apr 07, 2024 Has the PT tested + for MRSA If YES, has PT been informed?: No Medical Necessity Reason Pt with a Central, PICC or Fol: No Medical Necessity Reason Postoperative care IV antibiotics Pain management Subjective The patient is seen at 233 on a surgical floor Noted ongoing recovery from from postsurgical pains due to laparoscopic Cholecystectomy incl evacuation of biloma, drainage abscess and lysis of adhesions * Remains hemodynamically stable and afebrile * Currently receives IV fluids and IV antibiotics * Receives parenteral analgesics for pain management * Currently followed by Dr. Vinnie acosta from General surgery, Dr. Adriel Mcarthur cardiology and Dr. Raul Barroso infectious Disease Overnight events are reviewed through medical chart and case discussion with patient's assigned RN while making rounds on patient on the day of service vital signs Vital Sign Date Time Temp Pulse Resp B/P (MAP) Pulse Ox O2 Delivery O2 Flow Rate FiO2 04/07/24 16:39 98.4 95 14 106/59 (75) 96 98.4 04/07/24 08:00 Room Air* 0 21 Total Intake and Output 04/06/24 04/06/24 04/07/24 15:00 23:00 07:00 Intake Total 100 ml 600 ml 400 ml Output Total 1250 ml 600 ml Balance 100 ml -650 ml -200 ml medications Current Medications Medications Dose Ordered Sig/Aruna Route Start Time Stop Time Status Last Admin Dose Admin Ceftriaxone Sodium/Dextrose 50 ml @ 50 mls/hr DAILY@2100 IV 04/04/24 21:00 Cancel Metronidazole 100 ml @ 100 mls/hr Q8HR IV 04/04/24 06:00 Cancel Ondansetron HCl 4 mg Q4HPRN PRN IV 04/03/24 22:45 Pantoprazole Sodium 40 mg DAILY IV 04/04/24 10:00 04/07/24 09:10 40 MG Atorvastatin Calcium 40 mg HS PO 04/04/24 22:00 04/06/24 22:53 40 MG Aspirin 81 mg DAILY PO 04/04/24 10:00 04/07/24 09:11 81 MG Diagnostic Test (Pha) 1 strip ACHS 04/04/24 07:00 04/07/24 17:51 1 STRIP Insulin Human Regular HS SC 04/04/24 22:00 04/06/24 22:54 2 UNITS Insulin Human Regular AC SC 04/04/24 07:00 04/07/24 17:51 2 UNITS Dextrose 50 ml UD PRN IV 04/03/24 22:45 Nitroglycerin 0.4 mg Q5MINP PRN SL 04/03/24 22:45 Potassium Chloride/Dextrose/ Sod Cl 1,000 ml @ 100 mls/hr Q10H IV 04/04/24 00:15 04/07/24 18:15 100 MLS/HR Hydromorphone HCl 0.4 mg Q3HPRN PRN IV 04/04/24 00:15 04/05/24 02:58 0.4 MG Hydromorphone HCl 0.8 mg Q3HPRN PRN IV 04/04/24 00:15 04/05/24 23:32 0.8 MG Piperacillin Sod/ Tazobactam Sod 100 ml @ 25 mls/hr Q8HR@0100,0900,1700 IV 04/04/24 01:00 04/07/24 17:50 25 MLS/HR Docusate Sodium 100 mg BIDP PO 04/05/24 10:00 04/07/24 09:10 100 MG objective Physical Exam General appearance: Well-developed, well-nourished middle-aged male Alert oriented x2, Reports post surgical pains Head: Normocephalic nontraumatic Eyes: EOMI, ALIE, sclera nonicteric, conjunctive- pale ENT: No congestion, NSL bilateral symmetrical, oral mucosa wet Neck: Supple, carotid upstroke +2, trachea midline, JVD 2 cm No goiter/stridor, no lymph nodes JVD-3 cm, C spine- Full ROM No use of sternomastoid muscle Chest: Bilateral symmetrical expansions, no costochondral tenderness Lungs: clear breath sounds all over except reduced at bases CVS: PMI-1 cm medial to L MCL in fifth ICS , S1-S2 NSR no S3 GI: Abdomen soft, obese, bowel sounds hypoactive RUQ-postsurgical wound -feels tender, stain with sanguinous fluid, GLORIA drain-serosanguineous discharge RUQ tenderness, no rebound tenderness No hepatosplenomegaly, no mass no hernia , : No CVA tenderness, no bladder mass palpable, genitalia-NE SKIN: Turgor dry, color pink, no rash, no icterus, No varicosity, no ulcers or wounds EXTs: No edema, color pink, no rash, no ecchymosis distal pulses +2 capillary refill <2 seconds, No open wounds JOINTS; full range of motion BACK: No apparent lumbosacral spinal muscle tenderness, LYMPH NODES: No cervical, axillary or inguinal lymph nodes Neuro: Awake alert oriented x2 speech nonfluent expressive aphasia Left-sided hemiparesis motor strength three to 4/5 Sensory-changes of DPN as before PSYCH: Affect mildly depressed-denies suicidal ideation laboratory and microbiology Laboratory Tests 04/07/24 05:20 Test 04/07/24 05:20 Range/Units Serum Glucose 114 H 74-106 mg/dL Problem List 1. Status post laparoscopy Evacuation of biloma, drainage of abscess and lysis of adhesions 2. Status post Acute cholecystitis Complicated by biloma, abscess and adhesions 3. Leukocytosis 4. Acute on chronic iron-deficiency anemia from a. postsurgical blood loss vs hemodilution 5. 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 Fairly well-controlled diabetes and hypertension 2' Diagnosis/Comorbidities Noncompliance with medical recommendations Doppler lower Assessment/Plan Medical decision making The patient remains hemodynamically stable afebrile on a postop day 5 of his receiving laparoscopic cholecystectomy * Noted serosanguineous drainage GLORIA drain in amount of 20 ml which is Significantly improved as compared to previous high 340 mL 24 hours ago * Continued on IV hydration and IV antibiotics-Rocephin and Flagyl * Receives IV Dilaudid for postsurgical pains as needed * Consider advancing diet to full liquids. Peripheral or central TPN is not Indicated * Currently followed by Dr. Raul Barroso as Infectious Disease Dr. Vinnie Acosta General surgery and Dr. Adriel Mcarthur from Cardiology * Dietitian's input is noted * Recommend timely diet advancement to Low Fat diet s/p cholecystectomy May consider Ensure Clear supplements TID in the interim appropriate for current diet order to optimize nutrition (250 kcal, 8 gm pro, 0 gm fat/carton) * * Treatment Plans Continue hospital stay at [facility] floor Continue IV hydration Continue parenteral analgesics for postsurgical pains as needed Continue IV Rocephin and Flagyl Reviewed lab results Reviewed input of all consultants on the case Blood cultures p.r.n. temp 101.5 x3 Reviewed input of [employer]-GI consult Reconciled home meds VTE precautions Update patient The patient and and his were well informed by me about 1. Clinical impression, treatment plans, side effects of medications, course of the disease and guarded prognosis 2. All patient's question/ concerns raised by patient are satisfactorily addressed by me Total time spent 45 minutes 40% of time spent interviewing the patient and physical exam 30% of time spent in gathering lab datas and imaging studies 30 % of time is spent in patient education Prognosis Fair Dietary Evaluation Review Recommendations by RD: Dietary education by RD Comments: 1. Recommend timely diet advancement to Low Fat diet s/p cholecystectomy 2. May consider Ensure Clear supplements TID in the interim appropriate for current diet order to optimize nutrition (250 kcal, 8 gm pro, 0 gm fat/carton) 3. Consulted for TPN/EN: TPN is not clinically indicated at this time due to functional GI tract; should nutrition support be desired, would recommend tube feeding with peptide-based, hydrolyzed formula for improved tolerance - however, advise oral diet trial prior to initiating nutrition support measures Expected Outcomes/Goals: Diet advancement, improved nutritional status, post-op healing Plan discussed with: Patient Total Time (mins): 45 ALLA BARROSO MD Apr 07, 2024 19:33
[2024-04-08] VITALS (9 sets, daily range): BP systolic 105–139; BP diastolic 62–109; PULSE 45–96; RESP 16–20; TEMP 97.7–98.2; O2SAT 96–99
--- NOTE | 2024-04-08 17:20 | DVHPN2 ---
Progress Note Date Seen: Apr 08, 2024 Resident Creating Document: ENRIQUE YORK RESIDENT Has the PT tested + for MRSA If YES, has PT been informed?: No Medical Necessity Reason Pt with a Central, PICC or Fol: No Subjective Review of Systems Patient seen and examined at bedside. Patient is tolerating diet. Around 116 mL output obvious serosanguineous fluid from GLORIA drain. Had bowel movement yesterday. No new complaints. Denying fever, chills, nausea, vomiting, diarrhea. Objective vital signs Vital Sign Date Time Temp Pulse Resp B/P (MAP) Pulse Ox O2 Delivery O2 Flow Rate FiO2 04/08/24 17:00 98.0 93 18 105/63 (77) 99 98.0 04/08/24 07:55 Room Air* 0 21 Total Intake and Output 04/07/24 04/07/24 04/08/24 15:00 23:00 07:00 Intake Total 100 ml 1050 ml 360 ml Output Total 91 ml 2175 ml 1450 ml Balance 9 ml -1125 ml -1090 ml medications Current Medications Medications Dose Ordered Sig/Aruna Route Start Time Stop Time Status Last Admin Dose Admin Ceftriaxone Sodium/Dextrose 50 ml @ 50 mls/hr DAILY@2100 IV 04/04/24 21:00 Cancel Metronidazole 100 ml @ 100 mls/hr Q8HR IV 04/04/24 06:00 Cancel Ondansetron HCl 4 mg Q4HPRN PRN IV 04/03/24 22:45 Pantoprazole Sodium 40 mg DAILY IV 04/04/24 10:00 04/08/24 08:52 40 MG Atorvastatin Calcium 40 mg HS PO 04/04/24 22:00 04/07/24 21:04 40 MG Aspirin 81 mg DAILY PO 04/04/24 10:00 04/08/24 08:53 81 MG Diagnostic Test (Pha) 1 strip ACHS 04/04/24 07:00 04/08/24 16:33 1 STRIP Insulin Human Regular HS SC 04/04/24 22:00 04/07/24 21:08 2 UNITS Insulin Human Regular AC SC 04/04/24 07:00 04/08/24 16:33 2 UNITS Dextrose 50 ml UD PRN IV 04/03/24 22:45 Nitroglycerin 0.4 mg Q5MINP PRN SL 04/03/24 22:45 Potassium Chloride/Dextrose/ Sod Cl 1,000 ml @ 100 mls/hr Q10H IV 04/04/24 00:15 04/08/24 14:15 100 MLS/HR Hydromorphone HCl 0.4 mg Q3HPRN PRN IV 04/04/24 00:15 04/05/24 02:58 0.4 MG Hydromorphone HCl 0.8 mg Q3HPRN PRN IV 04/04/24 00:15 04/05/24 23:32 0.8 MG Piperacillin Sod/ Tazobactam Sod 100 ml @ 25 mls/hr Q8HR@0100,0900,1700 IV 04/04/24 01:00 04/08/24 16:32 25 MLS/HR Docusate Sodium 100 mg BIDP PO 04/05/24 10:00 04/08/24 08:52 100 MG Examination Physical examination: General Appearance: Alert, Oriented X3, Cooperative, No acute distress HEENT: Atraumatic, PERRLA, EOMI, Mucous membrane moist/pink Respiratory: Clear to auscultation, Normal air movement Cardiovascular: Regular rate, Normal S1, Normal S2, No murmurs, no chest wall tenderness Abdominal: Normal bowel sounds, Soft, mild tenderness around the incision site, No hepatospenomegaly, No masses Extremities: No clubbing, No cyanosis, No edema, Normal pulses, No tenderness/swelling Skin: No rashes, No breakdown, No significant lesion Neuro: Normal speech, Strength at 5/5 X4 ext, Normal tone, Sensation intact, grossly intact cranial nerves. Psych/Mental Status: Mental status NL, Mood NL laboratory and microbiology Laboratory Tests 04/07/24 05:20 Test 04/07/24 05:20 Range/Units Serum Glucose 114 H 74-106 mg/dL Microbiology Date/Time Source Procedure Growth Status 04/02/24 17:16 Nose MRSA Screen - Final Complete 04/02/24 13:00 Gallbladder Fluid Anaerobic Culture - Final Complete 04/02/24 13:00 Aerobic Culture - Final Pseudomonas aeruginosa Enterobacter aerogenes Complete Labs and/or images reviewed: Labs reviewed by me, Image(s) reviewed by me Problem List/Assessment/Plan Problem List/Assessment/Plan Assessment: # S/P Laparoscopy, evacuation of right upper quadrant biloma and abscess evacuation of myriad of small black gallstones, cholecystectomy, day 6 # Right upper quadrant pain likely secondary to acute cholecystitis # acute cholecystitis with cholelithiasis # s/p percutaneous transhepatic biliary drainage # Transaminitis without hyperbilirubinemia # History of obstructive jaundice with choledocholithiasis # History of CVA with left-sided hemiparesis Plan: - Full liquid diet - Downgraded to Telemetry. - continue IV antibiotic as per primary team - Surgery and infectious disease in board - Follow surgical recommendation regarding advancement of diet and clearance for discharge. - Physical therapy as tolerated. - monitor liver enzymes and bilirubin Plan discussed with Dr. Henley Plan discussed with: Patient, Other Dietary Evaluation Review Recommendations by RD: Dietary education by RD Comments: 1. Recommend timely diet advancement to Low Fat diet s/p cholecystectomy 2. May consider Ensure Clear supplements TID in the interim appropriate for current diet order to optimize nutrition (250 kcal, 8 gm pro, 0 gm fat/carton) 3. Consulted for TPN/EN: TPN is not clinically indicated at this time due to functional GI tract; should nutrition support be desired, would recommend tube feeding with peptide-based, hydrolyzed formula for improved tolerance - however, advise oral diet trial prior to initiating nutrition support measures Expected Outcomes/Goals: Diet advancement, improved nutritional status, post-op healing ENRIQUE YORK RESIDENT Apr 08, 2024 17:20
--- NOTE | 2024-04-08 21:04 | DVHPN2 ---
Progress Note - Dictate Date Seen: Apr 08, 2024 Has the PT tested + for MRSA If YES, has PT been informed?: No Medical Necessity Reason Pt with a Central, PICC or Fol: No Subjective Patient was seen and evaluated in follow up. No overnight events. Patient reports improvement in abdominal pain today. Patient is tolerating diet. He had a BM yesterday. Patient had approx 116 mL output obvious serosanguineous fluid from GLORIA drain. BS in the 150s. Telemetry reviewed. vital signs Vital Sign Date Time Temp Pulse Resp B/P (MAP) Pulse Ox O2 Delivery O2 Flow Rate FiO2 04/08/24 20:00 Room Air* 0 21 04/08/24 17:00 98.0 93 18 105/63 (77) 99 98.0 Total Intake and Output 04/07/24 04/07/24 04/08/24 15:00 23:00 07:00 Intake Total 100 ml 1050 ml 360 ml Output Total 91 ml 2175 ml 1450 ml Balance 9 ml -1125 ml -1090 ml medications Current Medications Medications Dose Ordered Sig/Aruna Route Start Time Stop Time Status Last Admin Dose Admin Ceftriaxone Sodium/Dextrose 50 ml @ 50 mls/hr DAILY@2100 IV 04/04/24 21:00 Cancel Metronidazole 100 ml @ 100 mls/hr Q8HR IV 04/04/24 06:00 Cancel Ondansetron HCl 4 mg Q4HPRN PRN IV 04/03/24 22:45 Pantoprazole Sodium 40 mg DAILY IV 04/04/24 10:00 04/08/24 08:52 40 MG Atorvastatin Calcium 40 mg HS PO 04/04/24 22:00 04/07/24 21:04 40 MG Aspirin 81 mg DAILY PO 04/04/24 10:00 04/08/24 08:53 81 MG Diagnostic Test (Pha) 1 strip ACHS 04/04/24 07:00 04/08/24 16:33 1 STRIP Insulin Human Regular HS SC 04/04/24 22:00 04/07/24 21:08 2 UNITS Insulin Human Regular AC SC 04/04/24 07:00 04/08/24 16:33 2 UNITS Dextrose 50 ml UD PRN IV 04/03/24 22:45 Nitroglycerin 0.4 mg Q5MINP PRN SL 04/03/24 22:45 Potassium Chloride/Dextrose/ Sod Cl 1,000 ml @ 100 mls/hr Q10H IV 04/04/24 00:15 04/08/24 14:15 100 MLS/HR Hydromorphone HCl 0.4 mg Q3HPRN PRN IV 04/04/24 00:15 04/05/24 02:58 0.4 MG Hydromorphone HCl 0.8 mg Q3HPRN PRN IV 04/04/24 00:15 04/05/24 23:32 0.8 MG Piperacillin Sod/ Tazobactam Sod 100 ml @ 25 mls/hr Q8HR@0100,0900,1700 IV 04/04/24 01:00 04/08/24 16:32 25 MLS/HR Docusate Sodium 100 mg BIDP PO 04/05/24 10:00 04/08/24 08:52 100 MG objective GENERAL: Awake, alert, oriented. LUNGS: Clear. CARDIOVASCULAR: Heart sounds are good. ABDOMEN: Soft. RUQ TTP. laboratory and microbiology Laboratory Tests 04/07/24 05:20 Test 04/07/24 05:20 Range/Units Serum Glucose 114 H 74-106 mg/dL Problem List Acute RUQ abdominal pain. Acute cholecystitis. Recent history of choledocholithiasis and obstructive jaundice. Status post percutaneous transhepatic biliary drainage. Hypovolemia. Right CVA with left-sided hemiparesis. Diabetes. Hypertension. Noncompliance with medical recommendations. Assessment/Plan Continued all current supportive medical care. Aspirin, Lipitor. IV antibiotics as ordered. Dilaudid for pain management. Additional plan as per the hospital course. Dietary Evaluation Review Recommendations by RD: Dietary education by RD Comments: 1. Recommend timely diet advancement to Low Fat diet s/p cholecystectomy 2. May consider Ensure Clear supplements TID in the interim appropriate for current diet order to optimize nutrition (250 kcal, 8 gm pro, 0 gm fat/carton) 3. Consulted for TPN/EN: TPN is not clinically indicated at this time due to functional GI tract; should nutrition support be desired, would recommend tube feeding with peptide-based, hydrolyzed formula for improved tolerance - however, advise oral diet trial prior to initiating nutrition support measures Expected Outcomes/Goals: Diet advancement, improved nutritional status, post-op healing Plan discussed with: Patient ANITRA HOOD MD Apr 08, 2024 21:04
--- NOTE | 2024-04-08 22:14 | DVHPN2 ---
Progress Note - Dictate Date Seen: Apr 08, 2024 Has the PT tested + for MRSA If YES, has PT been informed?: No Medical Necessity Reason Pt with a Central, PICC or Fol: No Medical Necessity Reason Postoperative care IV antibiotics Parenteral analgesics for pain management Awaiting GLORIA drain discontinuation prior to discharge Subjective The patient is seen at room 233 on a [facility] ([facility]) He reports to have some recovery from postsurgical pains due to laparoscopic Cholecystectomy, evacuation of biloma, drainage abscess and lysis of adhesions * Remains hemodynamically stable and afebrile * Currently receives IV fluids and IV antibiotics * Receives parenteral analgesics for pain management * Tolerating full liquids well * Currently followed by Dr. Vinnie acosta from General surgery, Dr. Adriel Mcarthur cardiology and Dr. Raul Barroso infectious Disease Overnight events are reviewed through medical chart and case discussion with patient's assigned RN while making rounds on patient on the day of service vital signs Vital Sign Date Time Temp Pulse Resp B/P (MAP) Pulse Ox O2 Delivery O2 Flow Rate FiO2 04/08/24 21:00 98.2 94 19 129/69 (89) 98 98.2 04/08/24 20:00 Room Air* 0 21 Total Intake and Output 04/07/24 04/07/24 04/08/24 15:00 23:00 07:00 Intake Total 100 ml 1050 ml 360 ml Output Total 91 ml 2175 ml 1450 ml Balance 9 ml -1125 ml -1090 ml medications Current Medications Medications Dose Ordered Sig/Aruna Route Start Time Stop Time Status Last Admin Dose Admin Ceftriaxone Sodium/Dextrose 50 ml @ 50 mls/hr DAILY@2100 IV 04/04/24 21:00 Cancel Metronidazole 100 ml @ 100 mls/hr Q8HR IV 04/04/24 06:00 Cancel Ondansetron HCl 4 mg Q4HPRN PRN IV 04/03/24 22:45 Pantoprazole Sodium 40 mg DAILY IV 04/04/24 10:00 04/08/24 08:52 40 MG Atorvastatin Calcium 40 mg HS PO 04/04/24 22:00 04/08/24 21:31 40 MG Aspirin 81 mg DAILY PO 04/04/24 10:00 04/08/24 08:53 81 MG Diagnostic Test (Pha) 1 strip ACHS 04/04/24 07:00 04/08/24 21:38 1 STRIP Insulin Human Regular HS SC 04/04/24 22:00 04/08/24 21:33 2 UNITS Insulin Human Regular AC SC 04/04/24 07:00 04/08/24 16:33 2 UNITS Dextrose 50 ml UD PRN IV 04/03/24 22:45 Nitroglycerin 0.4 mg Q5MINP PRN SL 04/03/24 22:45 Potassium Chloride/Dextrose/ Sod Cl 1,000 ml @ 100 mls/hr Q10H IV 04/04/24 00:15 04/08/24 14:15 100 MLS/HR Hydromorphone HCl 0.4 mg Q3HPRN PRN IV 04/04/24 00:15 04/05/24 02:58 0.4 MG Hydromorphone HCl 0.8 mg Q3HPRN PRN IV 04/04/24 00:15 04/05/24 23:32 0.8 MG Piperacillin Sod/ Tazobactam Sod 100 ml @ 25 mls/hr Q8HR@0100,0900,1700 IV 04/04/24 01:00 04/08/24 16:32 25 MLS/HR Docusate Sodium 100 mg BIDP PO 04/05/24 10:00 04/08/24 21:31 100 MG objective Physical Exam General appearance: Well-developed, well-nourished middle-aged male Awake alert oriented x2 Reports post surgical pains Head: Normocephalic nontraumatic Eyes: EOMI, ALIE, sclera nonicteric, conjunctive- pale ENT: No congestion, NSL bilateral symmetrical, oral mucosa wet Neck: Supple, carotid upstroke +2, trachea midline, JVD 2 cm No goiter/stridor, no lymph nodes JVD-3 cm, C spine- Full ROM No use of sternomastoid muscle Chest: Bilateral symmetrical expansions, no costochondral tenderness Lungs: clear breath sounds all over except reduced at bases CVS: PMI-1 cm medial to L MCL in fifth ICS , S1-S2 NSR no S3 GI: Abdomen soft, obese, bowel sounds hypoactive RUQ-postsurgical wound -minimally tender, GLORIA drain-serous discharge discharge RUQ tenderness, no rebound tenderness No hepatosplenomegaly, no mass no hernia , : No CVA tenderness, no bladder mass palpable, genitalia-NE SKIN: Turgor dry, color pink, no rash, no icterus, No varicosity, no ulcers or wounds EXTs: No edema, color pink, no rash, no ecchymosis distal pulses +2 capillary refill <2 seconds, No open wounds JOINTS; full range of motion BACK: No apparent lumbosacral spinal muscle tenderness, LYMPH NODES: No cervical, axillary or inguinal lymph nodes Neuro: Awake alert oriented x2, speech nonfluent expressive aphasia Left-sided hemiparesis motor strength three to 4/5 Sensory-changes of DPN as before PSYCH: Affect mildly depressed-denies suicidal ideation laboratory and microbiology Laboratory Tests 04/07/24 05:20 Test 04/07/24 05:20 Range/Units Serum Glucose 114 H 74-106 mg/dL Problem List 1. Status post laparoscopy Evacuation of biloma, drainage of abscess and lysis of adhesions 2. Status post Acute cholecystitis Complicated by biloma, abscess and adhesions 3. Leukocytosis 4. Acute on chronic iron-deficiency anemia from a. postsurgical blood loss vs hemodilution 5. 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 Fairly well-controlled diabetes and hypertension 2' Diagnosis/Comorbidities Noncompliance with medical recommendations Doppler lower Assessment/Plan Medical decision making The patient is seen on postop day 6 of laparoscopic cholecystectomy He remains hemodynamically stable and afebrile * Noted serous discharge through GLORIA drain-116 mL over past 24 hours * Patient is tolerating full liquid diet well. * Continued on IV piperacillin in consult with Dr. Raul Barroso * Receives IV hydration * Recommended physical therapy evaluation * Reviewed input of Dr. Adriel Mcarthur cardiology, RESIDENTIAL LEASING AGENT of GI specialty * Reviewed input of dietitian Treatment Plans Continue hospital stay at [facility] Consider advancing from full liquid to soft diet by tomorrow morning Continue IV hydration Continue parenteral analgesics for postsurgical pains Continue IV Rocephin and Flagyl Reviewed input of Dr. Raul Barroso ,ID and Dr. Adriel Mcarthur Cardiology Reviewed input of RESIDENTIAL LEASING AGENT-GI consult Recommend physical therapy Reconciled home meds VTE precautions Update patient The patient and and his were well informed by me about 1. Clinical impression, treatment plans, side effects of medications, course of the disease and guarded prognosis 2. All patient's question/ concerns raised by patient are satisfactorily addressed by me Total time spent 45 minutes 40% of time spent interviewing the patient and physical exam 30% of time spent in gathering lab datas and imaging studies 30 % of time is spent in patient education Prognosis Fair Dietary Evaluation Review Recommendations by RD: Dietary education by RD Comments: 1. Recommend timely diet advancement to Low Fat diet s/p cholecystectomy 2. May consider Ensure Clear supplements TID in the interim appropriate for current diet order to optimize nutrition (250 kcal, 8 gm pro, 0 gm fat/carton) 3. Consulted for TPN/EN: TPN is not clinically indicated at this time due to functional GI tract; should nutrition support be desired, would recommend tube feeding with peptide-based, hydrolyzed formula for improved tolerance - however, advise oral diet trial prior to initiating nutrition support measures Expected Outcomes/Goals: Diet advancement, improved nutritional status, post-op healing Plan discussed with: Patient Total Time (mins): 45 ALLA BARROSO MD Apr 08, 2024 22:14
--- NOTE | 2024-04-08 22:32 | DVHPN2 ---
Progress Note - Surgical Date Seen: Apr 08, 2024 Post op day Post op day: 6 Subjective Patient reports: No new complaints, Feels better Review of Systems: HEENT:Normal, CVS:Normal, RESPIRATORY:Normal, GI:Normal, :Normal, MSK:Normal, NEURO:Normal Objective Vital signs Vital Sign Date Time Temp Pulse Resp B/P (MAP) Pulse Ox O2 Delivery O2 Flow Rate FiO2 04/08/24 21:00 98.2 94 19 129/69 (89) 98 98.2 04/08/24 20:00 Room Air* 0 21 Total Intake and Output 04/07/24 04/07/24 04/08/24 15:00 23:00 07:00 Intake Total 100 ml 1050 ml 360 ml Output Total 91 ml 2175 ml 1450 ml Balance 9 ml -1125 ml -1090 ml Medications Current Medications Medications Dose Ordered Sig/Aruna Route Start Time Stop Time Status Last Admin Dose Admin Ceftriaxone Sodium/Dextrose 50 ml @ 50 mls/hr DAILY@2100 IV 04/04/24 21:00 Cancel Metronidazole 100 ml @ 100 mls/hr Q8HR IV 04/04/24 06:00 Cancel Ondansetron HCl 4 mg Q4HPRN PRN IV 04/03/24 22:45 Pantoprazole Sodium 40 mg DAILY IV 04/04/24 10:00 04/08/24 08:52 40 MG Atorvastatin Calcium 40 mg HS PO 04/04/24 22:00 04/08/24 21:31 40 MG Aspirin 81 mg DAILY PO 04/04/24 10:00 04/08/24 08:53 81 MG Diagnostic Test (Pha) 1 strip ACHS 04/04/24 07:00 04/08/24 21:38 1 STRIP Insulin Human Regular HS SC 04/04/24 22:00 04/08/24 21:33 2 UNITS Insulin Human Regular AC SC 04/04/24 07:00 04/08/24 16:33 2 UNITS Dextrose 50 ml UD PRN IV 04/03/24 22:45 Nitroglycerin 0.4 mg Q5MINP PRN SL 04/03/24 22:45 Potassium Chloride/Dextrose/ Sod Cl 1,000 ml @ 100 mls/hr Q10H IV 04/04/24 00:15 04/08/24 14:15 100 MLS/HR Hydromorphone HCl 0.4 mg Q3HPRN PRN IV 04/04/24 00:15 04/05/24 02:58 0.4 MG Hydromorphone HCl 0.8 mg Q3HPRN PRN IV 04/04/24 00:15 04/05/24 23:32 0.8 MG Piperacillin Sod/ Tazobactam Sod 100 ml @ 25 mls/hr Q8HR@0100,0900,1700 IV 04/04/24 01:00 04/08/24 16:32 25 MLS/HR Docusate Sodium 100 mg BIDP PO 04/05/24 10:00 04/08/24 21:31 100 MG Laboratory Laboratory Tests 04/07/24 05:20 Test 04/07/24 05:20 Range/Units Serum Glucose 114 H 74-106 mg/dL Microbiology Date/Time Source Procedure Growth Status 04/02/24 17:16 Nose MRSA Screen - Final Complete 04/02/24 13:00 Gallbladder Fluid Anaerobic Culture - Final Complete 04/02/24 13:00 Aerobic Culture - Final Pseudomonas aeruginosa Enterobacter aerogenes Complete Examination: GENERAL:Normal, HEENT:Normal, NECK:Normal, LUNGS:Normal, CVS:Normal, ABDOMEN:Abnormal (GLORIA drains) Problem List/Assessment/Plan Problems: (1) Diabetes (2) Acute cholecystitis (3) S/P cholecystectomy Assessment and Plan no new complaints abdomen soft , non distended, appropriately tender wounds clean dry and intact GLORIA drains about 150cc serous/brown fluid Plan: continue with current treatment continue IV antibiotics pain control ok to downgrade to telemetry with a sitter Dr. Marin agrees with Plan 04/06/2024 no new complaints abdomen soft , non distended, appropriately tender wounds clean dry and intact GLORIA drains about 15cc serous/brown fluid tolerating diet Plan: continue current treatment IV antibiotics 04/08/2024 @1500 feeling better abdomen soft , non distended, non tender, passing gas, denies nausea or vomiting wounds clean dry and intact GLORIA drains one with bile/serous colored fluid 30cc second rain minimal serous fluid tolerating diet Plan: Empty drains daily IV hydration and antibiotics advance diet as tolerated Discussed with Dr. Marin Plan discussed with Plan discussed with: Patient, Other (Dr. Marin) Visit Coding Surgery Date of Service if different f: Apr 08, 2024 Billing Provider: YOEL MARIN MD Surgery Visit Codes: [id number] INP/OBS CARE(HIGH) LAMAR CHOE DNP Apr 08, 2024 22:32
[2024-04-09] VITALS (8 sets, daily range): BP systolic 101–104; BP diastolic 48–67; PULSE 90–101; RESP 15–18; TEMP 97.7–98.6; O2SAT 92–98
[2024-04-09 06:12] LABS: Alanine Aminotransferase 25 U/L (7-40); Albumin 4.2 g/dL (3.2-4.8); Alkaline Phosphatase 95 U/L (46-116); Anion Gap 7 (5-15); Aspartate Aminotransferase 19 U/L (13-40); BUN/Creatinine Ratio 10.8 (10.0-20.0); Calcium 9.8 mg/dL (8.7-10.4); Carbon Dioxide 26 mmol/L (20-31); Chloride 105 mmol/L (98-107); Potassium 3.9 mmol/L (3.5-5.1); Sodium 138 mmol/L (136-145)
[2024-04-09 06:13] LABS: Bilirubin, Total 0.5 mg/dL (0.2-1.0); Total Protein 6.7 g/dL (5.7-8.2)
[2024-04-09 06:22] LABS: Blood Urea Nitrogen 7 mg/dL (9-23); Glucose 128 mg/dL (74-106)
--- NOTE | 2024-04-09 14:06 | DVHPN2 ---
Progress Note Date Seen: Apr 09, 2024 Resident Creating Document: ENRIQUE YORK RESIDENT Has the PT tested + for MRSA If YES, has PT been informed?: No Medical Necessity Reason Pt with a Central, PICC or Fol: No Subjective Review of Systems Patient was seen and examined on the bedside. He is alert oriented x2. Complaint of abdominal pain and GLORIA drain collection in 24 hour were 15 ml serosanguineous fluid and 65 ml yellow green bile. Objective vital signs Vital Sign Date Time Temp Pulse Resp B/P (MAP) Pulse Ox O2 Delivery O2 Flow Rate FiO2 04/09/24 11:56 97.9 94 16 101/60 (74) 98 97.9 04/09/24 08:00 Room Air* 0 21 Total Intake and Output 04/08/24 04/08/24 04/09/24 15:00 23:00 07:00 Intake Total 1090 ml 1385 ml 520 ml Output Total 1485 ml 1560 ml Balance 1090 ml -100 ml -1040 ml medications Current Medications Medications Dose Ordered Sig/Aruna Route Start Time Stop Time Status Last Admin Dose Admin Ceftriaxone Sodium/Dextrose 50 ml @ 50 mls/hr DAILY@2100 IV 04/04/24 21:00 Cancel Metronidazole 100 ml @ 100 mls/hr Q8HR IV 04/04/24 06:00 Cancel Ondansetron HCl 4 mg Q4HPRN PRN IV 04/03/24 22:45 Pantoprazole Sodium 40 mg DAILY IV 04/04/24 10:00 04/09/24 09:35 40 MG Atorvastatin Calcium 40 mg HS PO 04/04/24 22:00 04/08/24 21:31 40 MG Aspirin 81 mg DAILY PO 04/04/24 10:00 04/09/24 09:54 81 MG Diagnostic Test (Pha) 1 strip ACHS 04/04/24 07:00 04/09/24 06:18 1 STRIP Insulin Human Regular HS SC 04/04/24 22:00 04/08/24 21:33 2 UNITS Insulin Human Regular AC SC 04/04/24 07:00 04/09/24 06:24 2 UNITS Dextrose 50 ml UD PRN IV 04/03/24 22:45 Nitroglycerin 0.4 mg Q5MINP PRN SL 04/03/24 22:45 Potassium Chloride/Dextrose/ Sod Cl 1,000 ml @ 100 mls/hr Q10H IV 04/04/24 00:15 04/09/24 09:55 100 MLS/HR Hydromorphone HCl 0.4 mg Q3HPRN PRN IV 04/04/24 00:15 04/05/24 02:58 0.4 MG Hydromorphone HCl 0.8 mg Q3HPRN PRN IV 04/04/24 00:15 04/05/24 23:32 0.8 MG Piperacillin Sod/ Tazobactam Sod 100 ml @ 25 mls/hr Q8HR@0100,0900,1700 IV 04/04/24 01:00 04/09/24 09:34 25 MLS/HR Docusate Sodium 100 mg BIDP PO 04/05/24 10:00 04/09/24 09:35 100 MG Examination Physical examination: General Appearance: Alert, Oriented X3, Cooperative, No acute distress HEENT: Atraumatic, PERRLA, EOMI, Mucous membrane moist/pink Respiratory: Clear to auscultation, Normal air movement Cardiovascular: Regular rate, Normal S1, Normal S2, No murmurs, no chest wall tenderness Abdominal: Normal bowel sounds, Soft, No tenderness, No hepatospenomegaly, No masses Extremities: No clubbing, No cyanosis, No edema, Normal pulses, No tenderness/swelling Skin: No rashes, No breakdown, No significant lesion Neuro: Normal gait, Normal speech, Strength at 5/5 X4 ext, Normal tone, Sensation intact, Cranial nerves 3-12 NL, Reflexes 2+ Psych/Mental Status: Mental status NL, Mood NL laboratory and microbiology Laboratory Tests 04/09/24 05:17 04/07/24 05:20 Test 04/09/24 05:17 Range/Units Serum Glucose 128 H 74-106 mg/dL Microbiology Date/Time Source Procedure Growth Status 04/02/24 17:16 Nose MRSA Screen - Final Complete 04/02/24 13:00 Gallbladder Fluid Anaerobic Culture - Final Complete 04/02/24 13:00 Aerobic Culture - Final Pseudomonas aeruginosa Enterobacter aerogenes Complete Labs and/or images reviewed: Labs reviewed by me, Image(s) reviewed by me Problem List/Assessment/Plan Problem List/Assessment/Plan Assessment: # S/P Laparoscopy, evacuation of right upper quadrant biloma and abscess evacuation of myriad of small black gallstones, cholecystectomy, day 7 # Right upper quadrant pain likely secondary to acute cholecystitis # acute cholecystitis with cholelithiasis # s/p percutaneous transhepatic biliary drainage # Transaminitis without hyperbilirubinemia # History of obstructive jaundice with choledocholithiasis # History of CVA with left-sided hemiparesis Plan: - Full liquid diet - Downgraded to Telemetry. - continue IV antibiotic as per primary team - Surgery and infectious disease in board - Follow surgical recommendation regarding advancement of diet and clearance for discharge. - Physical therapy as tolerated. - monitor liver enzymes and bilirubin Plan discussed with Dr. Henley Plan discussed with: Patient, Other Dietary Evaluation Review Recommendations by RD: Dietary education by RD Comments: 1. Recommend timely diet advancement to Low Fat diet s/p cholecystectomy 2. May consider Ensure Clear supplements TID in the interim appropriate for current diet order to optimize nutrition (250 kcal, 8 gm pro, 0 gm fat/carton) 3. Consulted for TPN/EN: TPN is not clinically indicated at this time due to functional GI tract; should nutrition support be desired, would recommend tube feeding with peptide-based, hydrolyzed formula for improved tolerance - however, advise oral diet trial prior to initiating nutrition support measures Expected Outcomes/Goals: Diet advancement, improved nutritional status, post-op healing ENRIQUE YORK RESIDENT Apr 09, 2024 14:06
--- NOTE | 2024-04-09 16:27 | DVHPN2 ---
Progress Note - Dictate Date Seen: Apr 09, 2024 Has the PT tested + for MRSA If YES, has PT been informed?: No Medical Necessity Reason Pt with a Central, PICC or Fol: No Subjective Patient was seen and evaluated in follow up. Patient is complaining of abdominal discomfort. GLORIA drain had15 ml serosanguineous fluid and 65 ml yellow green bile. Telemetry reviewed. vital signs Vital Sign Date Time Temp Pulse Resp B/P (MAP) Pulse Ox O2 Delivery O2 Flow Rate FiO2 04/09/24 11:56 97.9 94 16 101/60 (74) 98 97.9 04/09/24 08:00 Room Air* 0 21 Total Intake and Output 04/08/24 04/08/24 04/09/24 15:00 23:00 07:00 Intake Total 1090 ml 1385 ml 520 ml Output Total 1485 ml 1560 ml Balance 1090 ml -100 ml -1040 ml medications Current Medications Medications Dose Ordered Sig/Aruna Route Start Time Stop Time Status Last Admin Dose Admin Ceftriaxone Sodium/Dextrose 50 ml @ 50 mls/hr DAILY@2100 IV 04/04/24 21:00 Cancel Metronidazole 100 ml @ 100 mls/hr Q8HR IV 04/04/24 06:00 Cancel Ondansetron HCl 4 mg Q4HPRN PRN IV 04/03/24 22:45 Pantoprazole Sodium 40 mg DAILY IV 04/04/24 10:00 04/09/24 09:35 40 MG Atorvastatin Calcium 40 mg HS PO 04/04/24 22:00 04/08/24 21:31 40 MG Aspirin 81 mg DAILY PO 04/04/24 10:00 04/09/24 09:54 81 MG Diagnostic Test (Pha) 1 strip ACHS 04/04/24 07:00 04/09/24 06:18 1 STRIP Insulin Human Regular HS SC 04/04/24 22:00 04/08/24 21:33 2 UNITS Insulin Human Regular AC SC 04/04/24 07:00 04/09/24 06:24 2 UNITS Dextrose 50 ml UD PRN IV 04/03/24 22:45 Nitroglycerin 0.4 mg Q5MINP PRN SL 04/03/24 22:45 Potassium Chloride/Dextrose/ Sod Cl 1,000 ml @ 100 mls/hr Q10H IV 04/04/24 00:15 04/09/24 09:55 100 MLS/HR Hydromorphone HCl 0.4 mg Q3HPRN PRN IV 04/04/24 00:15 04/05/24 02:58 0.4 MG Hydromorphone HCl 0.8 mg Q3HPRN PRN IV 04/04/24 00:15 04/05/24 23:32 0.8 MG Piperacillin Sod/ Tazobactam Sod 100 ml @ 25 mls/hr Q8HR@0100,0900,1700 IV 04/04/24 01:00 04/09/24 09:34 25 MLS/HR Docusate Sodium 100 mg BIDP PO 04/05/24 10:00 04/09/24 09:35 100 MG objective GENERAL: Awake, alert, oriented. LUNGS: Clear. CARDIOVASCULAR: Heart sounds are good. ABDOMEN: Soft. RUQ TTP. laboratory and microbiology Laboratory Tests 04/09/24 05:17 04/07/24 05:20 Test 04/09/24 05:17 Range/Units Serum Glucose 128 H 74-106 mg/dL Problem List Acute RUQ abdominal pain. Acute cholecystitis. Recent history of choledocholithiasis and obstructive jaundice. Status post percutaneous transhepatic biliary drainage. Hypovolemia. Right CVA with left-sided hemiparesis. Diabetes. Hypertension. Noncompliance with medical recommendations. Assessment/Plan Continued all current supportive medical care. Aspirin, Lipitor. IV antibiotics as ordered. Dilaudid for pain management. Additional plan as per the hospital course. Dietary Evaluation Review Recommendations by RD: Dietary education by RD Comments: 1. Recommend timely diet advancement to Low Fat diet s/p cholecystectomy 2. May consider Ensure Clear supplements TID in the interim appropriate for current diet order to optimize nutrition (250 kcal, 8 gm pro, 0 gm fat/carton) 3. Consulted for TPN/EN: TPN is not clinically indicated at this time due to functional GI tract; should nutrition support be desired, would recommend tube feeding with peptide-based, hydrolyzed formula for improved tolerance - however, advise oral diet trial prior to initiating nutrition support measures Expected Outcomes/Goals: Diet advancement, improved nutritional status, post-op healing Plan discussed with: Patient ANITRA HOOD MD Apr 09, 2024 12:25
--- NOTE | 2024-04-09 16:45 | DVHPN2 ---
Progress Note - Dictate Date Seen: Apr 09, 2024 Has the PT tested + for MRSA If YES, has PT been informed?: No Medical Necessity Reason Pt with a Central, PICC or Fol: No Medical Necessity Reason Postop care IV antibiotics Parenteral analgesics Advancement of diet Physical therapy Subjective The patient is seen at [address] [facility] He seems to a significant recovery from postsurgical pains due to laparoscopic Cholecystectomy including evacuation of biloma, drainage abscess and lysis of adhesions * Remains hemodynamically stable and afebrile on postop day 7 * Currently receives IV fluids and IV antibiotics * Receives parenteral analgesics for pain management * Tolerated soft diet well * Received physical therapy evaluation * Currently followed by Dr. Vinnie acosta from General surgery, Dr. Adriel Mcarthur cardiology and Dr. Raul Barroso infectious Disease Overnight events are reviewed through medical chart and case discussion with patient's assigned RN while making rounds on patient on the day of service vital signs Vital Sign Date Time Temp Pulse Resp B/P (MAP) Pulse Ox O2 Delivery O2 Flow Rate FiO2 04/09/24 11:56 97.9 94 16 101/60 (74) 98 97.9 04/09/24 08:00 Room Air* 0 21 Total Intake and Output 04/08/24 04/08/24 04/09/24 15:00 23:00 07:00 Intake Total 1090 ml 1385 ml 520 ml Output Total 1485 ml 1560 ml Balance 1090 ml -100 ml -1040 ml medications Current Medications Medications Dose Ordered Sig/Aruna Route Start Time Stop Time Status Last Admin Dose Admin Ceftriaxone Sodium/Dextrose 50 ml @ 50 mls/hr DAILY@2100 IV 04/04/24 21:00 Cancel Metronidazole 100 ml @ 100 mls/hr Q8HR IV 04/04/24 06:00 Cancel Ondansetron HCl 4 mg Q4HPRN PRN IV 04/03/24 22:45 Pantoprazole Sodium 40 mg DAILY IV 04/04/24 10:00 04/09/24 09:35 40 MG Atorvastatin Calcium 40 mg HS PO 04/04/24 22:00 04/08/24 21:31 40 MG Aspirin 81 mg DAILY PO 04/04/24 10:00 04/09/24 09:54 81 MG Diagnostic Test (Pha) 1 strip ACHS 04/04/24 07:00 04/09/24 06:18 1 STRIP Insulin Human Regular HS SC 04/04/24 22:00 04/08/24 21:33 2 UNITS Insulin Human Regular AC SC 04/04/24 07:00 04/09/24 06:24 2 UNITS Dextrose 50 ml UD PRN IV 04/03/24 22:45 Nitroglycerin 0.4 mg Q5MINP PRN SL 04/03/24 22:45 Potassium Chloride/Dextrose/ Sod Cl 1,000 ml @ 100 mls/hr Q10H IV 04/04/24 00:15 04/09/24 09:55 100 MLS/HR Hydromorphone HCl 0.4 mg Q3HPRN PRN IV 04/04/24 00:15 04/05/24 02:58 0.4 MG Hydromorphone HCl 0.8 mg Q3HPRN PRN IV 04/04/24 00:15 04/05/24 23:32 0.8 MG Piperacillin Sod/ Tazobactam Sod 100 ml @ 25 mls/hr Q8HR@0100,0900,1700 IV 04/04/24 01:00 04/09/24 09:34 25 MLS/HR Docusate Sodium 100 mg BIDP PO 04/05/24 10:00 04/09/24 09:35 100 MG objective Physical Exam General appearance: Well-developed, well-nourished middle-aged male Awake alert oriented x2 Reports post surgical pains Head: Normocephalic nontraumatic Eyes: EOMI, ALIE, sclera nonicteric, conjunctive- pale ENT: No congestion, NSL bilateral symmetrical, oral mucosa wet Neck: Supple, carotid upstroke +2, trachea midline, JVD 2 cm No goiter/stridor, no lymph nodes JVD-3 cm, C spine- Full ROM No use of sternomastoid muscle Chest: Bilateral symmetrical expansions, no costochondral tenderness Lungs: clear breath sounds all over except reduced at bases CVS: PMI-1 cm medial to L MCL in fifth ICS , S1-S2 NSR no S3 GI: Abdomen soft, obese, bowel sounds hypoactive RUQ-postsurgical wound -minimally tender, clean healing well GLORIA drain-serous discharge No RUQ tenderness, no rebound tenderness No hepatosplenomegaly, no mass no hernia , : No CVA tenderness, no bladder mass palpable, genitalia-NE SKIN: Turgor dry, color pink, no rash, no icterus, No varicosity, no ulcers or wounds EXTs: No edema, color pink, no rash, no ecchymosis distal pulses +2 capillary refill <2 seconds, No open wounds JOINTS; full range of motion BACK: No apparent lumbosacral spinal muscle tenderness, LYMPH NODES: No cervical, axillary or inguinal lymph nodes Neuro: Awake alert oriented x2, speech nonfluent expressive aphasia Left-sided hemiparesis motor strength three to 4/5 Sensory-changes of DPN as before PSYCH: Affect mildly depressed-denies suicidal ideation laboratory and microbiology Laboratory Tests 04/09/24 05:17 04/07/24 05:20 Test 04/09/24 05:17 Range/Units Serum Glucose 128 H 74-106 mg/dL Problem List 1. Status post laparoscopy Evacuation of biloma, drainage of abscess and lysis of adhesions 2. Status post Acute cholecystitis Complicated by biloma, abscess and adhesions 3. Leukocytosis 4. Acute on chronic iron-deficiency anemia from a. postsurgical blood loss vs hemodilution 5. 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 Fairly well-controlled diabetes and hypertension 2' Diagnosis/Comorbidities Noncompliance with medical recommendations Doppler lower Assessment/Plan Medical decision making The patient remains hemodynamically stable afebrile on postop day 7 of his receiving laparoscopic cholecystectomy * Receives parenteral analgesics for pain management * Consider tapering patient off parenteral analgesics * Tolerating soft diet well * GLORIA drain-collected 95 mL over past 24 hours * Awaiting Dr. Acosta, or his drug safety assistant General surgery input about Discontinuation of GLORIA drain if indicated * Treatment Plans Continue hospital stay at room [address] [place] [facility] [place] Continue soft diet Continue IV hydration Consider tapering patient off parenteral analgesics for postsurgical pains Continue IV Rocephin and Flagyl Awaiting input of Dr. Vinnie Acosta about discontinuation of GLORIA drain Reviewed input of Dr. Raul Barroso ,ID and Dr. Adriel Mcarthur Cardiology Continue physical therapy Reviewed input of EVENT MARKETING MANAGER-GI consult Reconciled home meds VTE precautions Update patient The patient and and his were well informed by me about 1. Clinical impression, treatment plans, side effects of medications, course of the disease and guarded prognosis 2. All patient's question/ concerns raised by patient are satisfactorily addressed by me Total time spent 45 minutes 40% of time spent interviewing the patient and physical exam 30% of time spent in gathering lab datas and imaging studies 30 % of time is spent in patient education Prognosis Fair Dietary Evaluation Review Recommendations by RD: Dietary education by RD Comments: 1. Recommend timely diet advancement to Low Fat diet s/p cholecystectomy 2. May consider Ensure Clear supplements TID in the interim appropriate for current diet order to optimize nutrition (250 kcal, 8 gm pro, 0 gm fat/carton) 3. Consulted for TPN/EN: TPN is not clinically indicated at this time due to functional GI tract; should nutrition support be desired, would recommend tube feeding with peptide-based, hydrolyzed formula for improved tolerance - however, advise oral diet trial prior to initiating nutrition support measures Expected Outcomes/Goals: Diet advancement, improved nutritional status, post-op healing Plan discussed with: Patient Total Time (mins): 45 ALLA BARROSO MD Apr 09, 2024 16:45
--- NOTE | 2024-04-09 23:47 | DVHPN2 ---
Consult Progress Note Date Seen: Apr 08, 2024 Subjective Patient reports: Other (had 2 bowel movements that were solid , tolerating diet , 116 ccs of fluid coming from GLORIA drain ) Objective vital signs Vital Sign Date Time Temp Pulse Resp B/P (MAP) Pulse Ox O2 Delivery O2 Flow Rate FiO2 04/09/24 17:02 97.7 96 15 101/67 (78) 92 97.7 04/09/24 08:00 Room Air* 0 21 Total Intake and Output 04/08/24 04/08/24 04/09/24 15:00 23:00 07:00 Intake Total 1090 ml 1385 ml 520 ml Output Total 1485 ml 1560 ml Balance 1090 ml -100 ml -1040 ml medications Current Medications Medications Dose Ordered Sig/Aruna Route Start Time Stop Time Status Last Admin Dose Admin Ceftriaxone Sodium/Dextrose 50 ml @ 50 mls/hr DAILY@2100 IV 04/04/24 21:00 Cancel Metronidazole 100 ml @ 100 mls/hr Q8HR IV 04/04/24 06:00 Cancel Ondansetron HCl 4 mg Q4HPRN PRN IV 04/03/24 22:45 Pantoprazole Sodium 40 mg DAILY IV 04/04/24 10:00 04/09/24 09:35 40 MG Atorvastatin Calcium 40 mg HS PO 04/04/24 22:00 04/09/24 21:59 40 MG Aspirin 81 mg DAILY PO 04/04/24 10:00 04/09/24 09:54 81 MG Diagnostic Test (Pha) 1 strip ACHS 04/04/24 07:00 04/09/24 21:59 1 STRIP Insulin Human Regular HS SC 04/04/24 22:00 04/09/24 22:12 2 UNITS Insulin Human Regular AC SC 04/04/24 07:00 04/09/24 18:44 2 UNITS Dextrose 50 ml UD PRN IV 04/03/24 22:45 Nitroglycerin 0.4 mg Q5MINP PRN SL 04/03/24 22:45 Potassium Chloride/Dextrose/ Sod Cl 1,000 ml @ 100 mls/hr Q10H IV 04/04/24 00:15 04/09/24 22:13 100 MLS/HR Hydromorphone HCl 0.4 mg Q3HPRN PRN IV 04/04/24 00:15 04/05/24 02:58 0.4 MG Hydromorphone HCl 0.8 mg Q3HPRN PRN IV 04/04/24 00:15 04/05/24 23:32 0.8 MG Piperacillin Sod/ Tazobactam Sod 100 ml @ 25 mls/hr Q8HR@0100,0900,1700 IV 04/04/24 01:00 04/09/24 21:59 25 MLS/HR Docusate Sodium 100 mg BIDP PO 04/05/24 10:00 04/09/24 21:59 100 MG Physical Exam: - General: NAD - Neck: Supple. No masses. - HEENT: PERRL. Normal lids and conjunctiva. Moist mucous membranes. Oropharynx without lesions, exudates, or excessive erythema. Normal appearance of the external aspects of the nose and ears. - Heart: Regular rhythm, normal rate. No murmur. No lower extremity edema. - Lungs: Normal respiratory effort. Clear to auscultation bilaterally. No wheezes. No crackles. - Abdomen: Mildly distended. Tenderness in the right upper quadrant with guarding. No masses or abdominal hernia. - MSK: No digital cyanosis. Open, non-draining foot wounds status post multiple debridements. Normal strength and tone in all 4 limbs. - Skin: Warm and dry. Rash noted. - Neuro: Alert. No facial droop or slurred speech. Extraocular movements intact. Sensation intact to soft touch in all 4 limbs. - Psych: Appropriate mood. Full affect. Oriented to person, place, time, and situation. laboratory and microbiology Laboratory Tests 04/09/24 05:17 04/07/24 05:20 Test 04/09/24 05:17 Range/Units Serum Glucose 128 H 74-106 mg/dL Problem List/Assessment/Plan Problems(with codes): (1) Acute cholecystitis (2) Diabetes (3) Sepsis (4) Abdominal pain (5) Hypertension Problem List/Assessment/Plan ID Problem List: - Cerebrovascular accident with left hand paresis - Bed confined - Uncontrolled diabetes mellitus - Hypercholesterolemia - Hypertension - Paroxysmal atrial fibrillation - Cholelithiasis - Cholecystitis - Recent right MCA stroke with mid-cervical occlusion of right ICA - Necrotic infections of bilateral feet, status post multiple debridements Assessment This is a 68 y.o. male with a past medical history of cerebrovascular accident with left hand paresis, uncontrolled diabetes mellitus, hypercholesterolemia, hypertension, paroxysmal atrial fibrillation on Eliquis, recent right MCA stroke with mid-cervical occlusion of the right internal carotid artery, and status post coronary artery bypass graft several years ago, who presents with right upper quadrant pain, obstructive jaundice, and failure to thrive. The patient has been experiencing intermittent right upper quadrant pain and obstructive jaundice. He previously underwent percutaneous transhepatic biliary drainage at [facility] several weeks ago (records pending). Currently, he exhibits poor appetite, significant weight loss, and signs of acute cholecystitis. Vital signs are notable for fever (Tmax 101.5F) and tachycardia. Physical examination reveals right upper quadrant tenderness with guarding, mildly distended abdomen, rash, and open, non-draining foot wounds status post multiple debridements. Laboratory studies show leukocytosis (WBC 11.7 K/L) and elevated creatinine (1.56 mg/dL). Imaging studies are consistent with acute cholecystitis and stercoral colitis. 04/01: whitecount is 10.4 , patients MRPC shows no intro or extra hepatic biliary ductal dilation , no MRI evidence of chololithiasis , gallbladder wall thickening suggest acute cholecystitis . abdominal ultrasound shows cholelithiasis 04/02: per operative note patient underwent a laparoscopic cholecystectomy procedure and was found fibrinous flegmon in the right upper quadrant which consisted of trezors coils momentum loops of bowel. the inflammation was exuberant and after dissecting the momentum from the fundus of the gallbladder became obious the patient had a rupture of the gallbladder which spilled a myriad of natalya stones which was then seaaled off by this momentum and contained in the biloma and a puss collection . cultures and sensitivities were obtained . the myriad little stones were aspirated and scooped up to the best of my ability and then the gallbladder was resected by circumferentially dissecting the cystic duct and cystic artery . no attempt was made to trace the cystic duct to the common duct due to the inflammation and ligament is like adhesions and concretions . area was irrigated . patient remains normal throughout the procedure but there were no complications however the choice of laparoscopic procedure was chosen due to patient having a poor overall health 04/03: patients is growing 2 gram negative rods from operative cultures , whitecount is 16 and has tachycardia to 107s 04/04: whitecount is 13/7 , operative cultures are growing pseudomonas and enterobacteria both having sensitivities to levofloxacin , passing flattis and tolerating clear liquid diet 04/05:whitecount is 13.7 04/06: whitecount is 13.7 and BP is soft with MAPS 04/07: Ct abdomen and pelvis shows surgical drain has been placed in right upper quadrant and there remains post surgical debris and small amount of free fluid in the gallbladder 04/08: appears to be clinically responding to antibiotic therapy , whitecount is 10.8 Plan: - recommend continuing Zosyn while inpatient , when ready for discharge recommend oral Flagyl 500 mg 3x a day and oral levofloxacin 750 mg 1x a day to complete an additional 14 day course - given lack of bowel movements and low BP would repeat CT abdomen to ensure theirs no ongoing fluid collection that doesn't warrant additional drainage especially given pseudomanias cultures - follow up with infectious disease clinic in 4 weeks - defer post op management to general surgery - follow up on gram negative rods species - if tachycardia and other signs of sepsis persists would consider getting blood cultures , broadening out gram negative coverage - keep blood sugars under 180 Isolation Precautions: Standard Plan discussed with: Other Dietary Evaluation Review Recommendations by RD: Dietary education by RD Comments: 1. Recommend timely diet advancement to Low Fat diet s/p cholecystectomy 2. May consider Ensure Clear supplements TID in the interim appropriate for current diet order to optimize nutrition (250 kcal, 8 gm pro, 0 gm fat/carton) 3. Consulted for TPN/EN: TPN is not clinically indicated at this time due to functional GI tract; should nutrition support be desired, would recommend tube feeding with peptide-based, hydrolyzed formula for improved tolerance - however, advise oral diet trial prior to initiating nutrition support measures Expected Outcomes/Goals: Diet advancement, improved nutritional status, post-op healing TRENT STRINGER MD Apr 09, 2024 23:47
[2024-04-10] VITALS (8 sets, daily range): BP systolic 97–114; BP diastolic 59–75; PULSE 94–107; RESP 17–19; TEMP 92.2–99.9; O2SAT 90–100
--- NOTE | 2024-04-10 10:11 | DVHPN2 ---
Progress Note - Surgical Date Seen: Apr 10, 2024 Post op day Post op day: 7 Subjective Patient reports: No new complaints, Feels better Review of Systems: HEENT:Normal, CVS:Normal, RESPIRATORY:Normal, GI:Normal, :Normal, MSK:Normal, NEURO:Normal Objective Vital signs Vital Sign Date Time Temp Pulse Resp B/P (MAP) Pulse Ox O2 Delivery O2 Flow Rate FiO2 04/10/24 07:47 97.7 103 18 110/69 (83) 100 97.7 04/09/24 20:00 Room Air* 0 21 Total Intake and Output 04/09/24 04/09/24 04/10/24 15:00 23:00 07:00 Intake Total 100 ml 940 ml 320 ml Output Total 400 ml Balance 100 ml 540 ml 320 ml Medications Current Medications Medications Dose Ordered Sig/Aruna Route Start Time Stop Time Status Last Admin Dose Admin Ceftriaxone Sodium/Dextrose 50 ml @ 50 mls/hr DAILY@2100 IV 04/04/24 21:00 Cancel Metronidazole 100 ml @ 100 mls/hr Q8HR IV 04/04/24 06:00 Cancel Ondansetron HCl 4 mg Q4HPRN PRN IV 04/03/24 22:45 Pantoprazole Sodium 40 mg DAILY IV 04/04/24 10:00 04/09/24 09:35 40 MG Atorvastatin Calcium 40 mg HS PO 04/04/24 22:00 04/09/24 21:59 40 MG Aspirin 81 mg DAILY PO 04/04/24 10:00 04/09/24 09:54 81 MG Diagnostic Test (Pha) 1 strip ACHS 04/04/24 07:00 04/10/24 05:59 1 STRIP Insulin Human Regular HS SC 04/04/24 22:00 04/09/24 22:12 2 UNITS Insulin Human Regular AC SC 04/04/24 07:00 04/10/24 06:00 3 UNITS Dextrose 50 ml UD PRN IV 04/03/24 22:45 Nitroglycerin 0.4 mg Q5MINP PRN SL 04/03/24 22:45 Potassium Chloride/Dextrose/ Sod Cl 1,000 ml @ 100 mls/hr Q10H IV 04/04/24 00:15 04/09/24 22:13 100 MLS/HR Hydromorphone HCl 0.4 mg Q3HPRN PRN IV 04/04/24 00:15 04/05/24 02:58 0.4 MG Hydromorphone HCl 0.8 mg Q3HPRN PRN IV 04/04/24 00:15 04/10/24 05:59 0.8 MG Piperacillin Sod/ Tazobactam Sod 100 ml @ 25 mls/hr Q8HR@0100,0900,1700 IV 04/04/24 01:00 04/10/24 02:05 25 MLS/HR Docusate Sodium 100 mg BIDP PO 04/05/24 10:00 04/09/24 21:59 100 MG Laboratory Laboratory Tests 04/09/24 05:17 04/07/24 05:20 Test 04/09/24 05:17 Range/Units Serum Glucose 128 H 74-106 mg/dL Microbiology Date/Time Source Procedure Growth Status 04/02/24 17:16 Nose MRSA Screen - Final Complete 04/02/24 13:00 Gallbladder Fluid Anaerobic Culture - Final Complete 04/02/24 13:00 Aerobic Culture - Final Pseudomonas aeruginosa Enterobacter aerogenes Complete Examination: GENERAL:Normal, HEENT:Normal, NECK:Normal, LUNGS:Normal, CVS:Normal, ABDOMEN:Abnormal (GLORIA drains) Problem List/Assessment/Plan Problems: (1) Diabetes (2) S/P cholecystectomy Assessment and Plan no new complaints abdomen soft , non distended, appropriately tender wounds clean dry and intact GLORIA drains about 150cc serous/brown fluid Plan: continue with current treatment continue IV antibiotics pain control ok to downgrade to telemetry with a sitter Dr. Acosta agrees with Plan 04/06/2024 no new complaints abdomen soft , non distended, appropriately tender wounds clean dry and intact GLORIA drains about 15cc serous/brown fluid tolerating diet Plan: continue current treatment IV antibiotics 04/08/2024 @1500 feeling better abdomen soft , non distended, non tender, passing gas, denies nausea or vomiting wounds clean dry and intact GLORIA drains one with bile/serous colored fluid 30cc second drain minimal serous fluid tolerating diet Plan: Empty drains daily IV hydration and antibiotics advance diet as tolerated Discussed with Dr. Acosta 04/10/24 feeling better abdomen soft , non distended, non tender, passing gas, denies nausea or vomiting wounds clean dry and intact GLORIA drains one with bile/serous colored fluid 15cc, drainage decreased per assessment and notes second drain minimal serous fluid tolerating diet Plan: Empty drains daily IV hydration and antibiotics advance diet as tolerated Discussed with Dr. Acosta Plan discussed with Plan discussed with: Other (dr. acosta) Visit Coding Surgery Date of Service if different f: Apr 10, 2024 Billing Provider: YOEL ACOSTA MD Surgery Visit Codes: [id number] INP/OBS CARE(HIGH) LAMAR CHOE DNP Apr 10, 2024 10:11
--- NOTE | 2024-04-10 12:28 | DVHPN2 ---
Progress Note Date Seen: Apr 10, 2024 Resident Creating Document: ENRIQUE YORK RESIDENT Has the PT tested + for MRSA If YES, has PT been informed?: No Medical Necessity Reason Pt with a Central, PICC or Fol: No Subjective Review of Systems Patient was seen and examined on the bedside. He is alert oriented x2. Complaint of abdominal pain around the incision site and no other active complaint. 24 hour GLORIA drain collections are 25 mL yellow green bile and 2 mL serosanguineous fluid. Objective vital signs Vital Sign Date Time Temp Pulse Resp B/P (MAP) Pulse Ox O2 Delivery O2 Flow Rate FiO2 04/10/24 11:52 97.7 99 18 100/59 (73) 100 97.7 04/09/24 20:00 Room Air* 0 21 Total Intake and Output 04/09/24 04/09/24 04/10/24 15:00 23:00 07:00 Intake Total 100 ml 940 ml 320 ml Output Total 400 ml Balance 100 ml 540 ml 320 ml medications Current Medications Medications Dose Ordered Sig/Aruna Route Start Time Stop Time Status Last Admin Dose Admin Ceftriaxone Sodium/Dextrose 50 ml @ 50 mls/hr DAILY@2100 IV 04/04/24 21:00 Cancel Metronidazole 100 ml @ 100 mls/hr Q8HR IV 04/04/24 06:00 Cancel Ondansetron HCl 4 mg Q4HPRN PRN IV 04/03/24 22:45 Pantoprazole Sodium 40 mg DAILY IV 04/04/24 10:00 04/10/24 10:53 40 MG Atorvastatin Calcium 40 mg HS PO 04/04/24 22:00 04/09/24 21:59 40 MG Aspirin 81 mg DAILY PO 04/04/24 10:00 04/10/24 10:53 81 MG Diagnostic Test (Pha) 1 strip ACHS 04/04/24 07:00 04/10/24 11:03 1 STRIP Insulin Human Regular HS SC 04/04/24 22:00 04/09/24 22:12 2 UNITS Insulin Human Regular AC SC 04/04/24 07:00 04/10/24 06:00 3 UNITS Dextrose 50 ml UD PRN IV 04/03/24 22:45 Nitroglycerin 0.4 mg Q5MINP PRN SL 04/03/24 22:45 Potassium Chloride/Dextrose/ Sod Cl 1,000 ml @ 100 mls/hr Q10H IV 04/04/24 00:15 04/09/24 22:13 100 MLS/HR Hydromorphone HCl 0.4 mg Q3HPRN PRN IV 04/04/24 00:15 04/05/24 02:58 0.4 MG Hydromorphone HCl 0.8 mg Q3HPRN PRN IV 04/04/24 00:15 04/10/24 05:59 0.8 MG Piperacillin Sod/ Tazobactam Sod 100 ml @ 25 mls/hr Q8HR@0100,0900,1700 IV 04/04/24 01:00 04/10/24 02:05 25 MLS/HR Docusate Sodium 100 mg BIDP PO 04/05/24 10:00 04/10/24 10:53 100 MG Examination Physical examination: General Appearance: Alert, Oriented X3, Cooperative, No acute distress HEENT: Atraumatic, PERRLA, EOMI, Mucous membrane moist/pink Respiratory: Clear to auscultation, Normal air movement Cardiovascular: Regular rate, Normal S1, Normal S2, No murmurs, no chest wall tenderness Abdominal: Normal bowel sounds, Soft, No tenderness, No hepatospenomegaly, No masses Extremities: No clubbing, No cyanosis, No edema, Normal pulses, No tenderness/swelling Skin: No rashes, No breakdown, No significant lesion Neuro: Normal speech, Strength at 5/5 X4 ext, Normal tone, Sensation intact, Cranial nerves 3-12 NL, Reflexes 2+ Psych/Mental Status: Mental status NL, Mood NL laboratory and microbiology Laboratory Tests 04/09/24 05:17 04/07/24 05:20 Test 04/09/24 05:17 Range/Units Serum Glucose 128 H 74-106 mg/dL Microbiology Date/Time Source Procedure Growth Status 04/02/24 17:16 Nose MRSA Screen - Final Complete 04/02/24 13:00 Gallbladder Fluid Anaerobic Culture - Final Complete 04/02/24 13:00 Aerobic Culture - Final Pseudomonas aeruginosa Enterobacter aerogenes Complete Labs and/or images reviewed: Labs reviewed by me, Image(s) reviewed by me Problem List/Assessment/Plan Problem List/Assessment/Plan Assessment: # S/P Laparoscopy, evacuation of right upper quadrant biloma and abscess evacuation of myriad of small black gallstones, cholecystectomy, day 7 # Right upper quadrant pain likely secondary to acute cholecystitis # acute cholecystitis with cholelithiasis # s/p percutaneous transhepatic biliary drainage # Transaminitis without hyperbilirubinemia # History of obstructive jaundice with choledocholithiasis # History of CVA with left-sided hemiparesis Plan: - Full liquid diet - Downgraded to Telemetry. - continue IV antibiotic as per primary team - Surgery and infectious disease in board - Follow surgical recommendation regarding advancement of diet and clearance for discharge. - Physical therapy as tolerated. - monitor liver enzymes and bilirubin Plan discussed with Dr. Henley Plan discussed with: Patient, Other Dietary Evaluation Review Recommendations by RD: Dietary education by RD Comments: 1. Recommend timely diet advancement to Low Fat diet s/p cholecystectomy 2. May consider Ensure Clear supplements TID in the interim appropriate for current diet order to optimize nutrition (250 kcal, 8 gm pro, 0 gm fat/carton) 3. Consulted for TPN/EN: TPN is not clinically indicated at this time due to functional GI tract; should nutrition support be desired, would recommend tube feeding with peptide-based, hydrolyzed formula for improved tolerance - however, advise oral diet trial prior to initiating nutrition support measures Expected Outcomes/Goals: Diet advancement, improved nutritional status, post-op healing ENRIQUE YORK RESIDENT Apr 10, 2024 12:27
--- NOTE | 2024-04-10 13:19 | DVHPN2 ---
Progress Note - Dictate Date Seen: Apr 10, 2024 Has the PT tested + for MRSA If YES, has PT been informed?: No Medical Necessity Reason Pt with a Central, PICC or Fol: No Subjective Patient was seen and evaluated in follow up. No overnight events. Patient reports feeling better today. GLORIA drain had 150cc serous/brown fluid output today. Patient is afebrile. Telemetry reviewed. vital signs Vital Sign Date Time Temp Pulse Resp B/P (MAP) Pulse Ox O2 Delivery O2 Flow Rate FiO2 04/10/24 07:47 97.7 103 18 110/69 (83) 100 97.7 04/09/24 20:00 Room Air* 0 21 Total Intake and Output 04/09/24 04/09/24 04/10/24 15:00 23:00 07:00 Intake Total 100 ml 940 ml 320 ml Output Total 400 ml Balance 100 ml 540 ml 320 ml medications Current Medications Medications Dose Ordered Sig/Aruna Route Start Time Stop Time Status Last Admin Dose Admin Ceftriaxone Sodium/Dextrose 50 ml @ 50 mls/hr DAILY@2100 IV 04/04/24 21:00 Cancel Metronidazole 100 ml @ 100 mls/hr Q8HR IV 04/04/24 06:00 Cancel Ondansetron HCl 4 mg Q4HPRN PRN IV 04/03/24 22:45 Pantoprazole Sodium 40 mg DAILY IV 04/04/24 10:00 04/10/24 10:53 40 MG Atorvastatin Calcium 40 mg HS PO 04/04/24 22:00 04/09/24 21:59 40 MG Aspirin 81 mg DAILY PO 04/04/24 10:00 04/10/24 10:53 81 MG Diagnostic Test (Pha) 1 strip ACHS 04/04/24 07:00 04/10/24 11:03 1 STRIP Insulin Human Regular HS SC 04/04/24 22:00 04/09/24 22:12 2 UNITS Insulin Human Regular AC SC 04/04/24 07:00 04/10/24 06:00 3 UNITS Dextrose 50 ml UD PRN IV 04/03/24 22:45 Nitroglycerin 0.4 mg Q5MINP PRN SL 04/03/24 22:45 Potassium Chloride/Dextrose/ Sod Cl 1,000 ml @ 100 mls/hr Q10H IV 04/04/24 00:15 04/09/24 22:13 100 MLS/HR Hydromorphone HCl 0.4 mg Q3HPRN PRN IV 04/04/24 00:15 04/05/24 02:58 0.4 MG Hydromorphone HCl 0.8 mg Q3HPRN PRN IV 04/04/24 00:15 04/10/24 05:59 0.8 MG Piperacillin Sod/ Tazobactam Sod 100 ml @ 25 mls/hr Q8HR@0100,0900,1700 IV 04/04/24 01:00 04/10/24 02:05 25 MLS/HR Docusate Sodium 100 mg BIDP PO 04/05/24 10:00 04/10/24 10:53 100 MG objective GENERAL: Awake, alert, oriented. LUNGS: Clear. CARDIOVASCULAR: Heart sounds are good. ABDOMEN: Soft. RUQ TTP. laboratory and microbiology Laboratory Tests 04/09/24 05:17 04/07/24 05:20 Test 04/09/24 05:17 Range/Units Serum Glucose 128 H 74-106 mg/dL Problem List Acute RUQ abdominal pain. Acute cholecystitis. Recent history of choledocholithiasis and obstructive jaundice. Status post percutaneous transhepatic biliary drainage. Hypovolemia. Right CVA with left-sided hemiparesis. Diabetes. Hypertension. Noncompliance with medical recommendations. Assessment/Plan Continued all current supportive medical care. Aspirin, Lipitor. Dilaudid for pain management. IV antibiotics as ordered. GI prophylactics. Additional plan as per the hospital course. Dietary Evaluation Review Recommendations by RD: Dietary education by RD Comments: 1. Recommend timely diet advancement to Low Fat diet s/p cholecystectomy 2. May consider Ensure Clear supplements TID in the interim appropriate for current diet order to optimize nutrition (250 kcal, 8 gm pro, 0 gm fat/carton) 3. Consulted for TPN/EN: TPN is not clinically indicated at this time due to functional GI tract; should nutrition support be desired, would recommend tube feeding with peptide-based, hydrolyzed formula for improved tolerance - however, advise oral diet trial prior to initiating nutrition support measures Expected Outcomes/Goals: Diet advancement, improved nutritional status, post-op healing Plan discussed with: Patient ANITRA HOOD MD Apr 10, 2024 11:51
--- NOTE | 2024-04-10 23:54 | DVHPN2 ---
Consult Progress Note Date Seen: Apr 10, 2024 Subjective Patient reports: Other (tolerating diet and having bowel movements , 120ccs of drainage from the 2 abdomen drains ) Objective vital signs Vital Sign Date Time Temp Pulse Resp B/P (MAP) Pulse Ox O2 Delivery O2 Flow Rate FiO2 04/10/24 22:30 101 17 106/70 04/10/24 21:00 99.4 96 99.4 04/10/24 08:00 Room Air* 0 21 Total Intake and Output 04/09/24 04/09/24 04/10/24 15:00 23:00 07:00 Intake Total 100 ml 940 ml 320 ml Output Total 400 ml Balance 100 ml 540 ml 320 ml medications Current Medications Medications Dose Ordered Sig/Aruna Route Start Time Stop Time Status Last Admin Dose Admin Ceftriaxone Sodium/Dextrose 50 ml @ 50 mls/hr DAILY@2100 IV 04/04/24 21:00 Cancel Metronidazole 100 ml @ 100 mls/hr Q8HR IV 04/04/24 06:00 Cancel Ondansetron HCl 4 mg Q4HPRN PRN IV 04/03/24 22:45 Pantoprazole Sodium 40 mg DAILY IV 04/04/24 10:00 04/10/24 10:53 40 MG Atorvastatin Calcium 40 mg HS PO 04/04/24 22:00 04/10/24 22:29 40 MG Aspirin 81 mg DAILY PO 04/04/24 10:00 04/10/24 10:53 81 MG Diagnostic Test (Pha) 1 strip ACHS 04/04/24 07:00 04/10/24 22:00 1 STRIP Insulin Human Regular HS SC 04/04/24 22:00 04/10/24 22:33 3 UNITS Insulin Human Regular AC SC 04/04/24 07:00 04/10/24 17:55 2 UNITS Dextrose 50 ml UD PRN IV 04/03/24 22:45 Nitroglycerin 0.4 mg Q5MINP PRN SL 04/03/24 22:45 Potassium Chloride/Dextrose/ Sod Cl 1,000 ml @ 100 mls/hr Q10H IV 04/04/24 00:15 04/10/24 19:03 100 MLS/HR Hydromorphone HCl 0.4 mg Q3HPRN PRN IV 04/04/24 00:15 04/10/24 15:19 0.4 MG Hydromorphone HCl 0.8 mg Q3HPRN PRN IV 04/04/24 00:15 04/10/24 22:30 0.8 MG Piperacillin Sod/ Tazobactam Sod 100 ml @ 25 mls/hr Q8HR@0100,0900,1700 IV 04/04/24 01:00 04/10/24 18:08 25 MLS/HR Docusate Sodium 100 mg BIDP PO 04/05/24 10:00 04/10/24 22:28 100 MG Physical Exam: - General: NAD - Neck: Supple. No masses. - HEENT: PERRL. Normal lids and conjunctiva. Moist mucous membranes. Oropharynx without lesions, exudates, or excessive erythema. Normal appearance of the external aspects of the nose and ears. - Heart: Regular rhythm, normal rate. No murmur. No lower extremity edema. - Lungs: Normal respiratory effort. Clear to auscultation bilaterally. No wheezes. No crackles. - Abdomen: Mildly distended. Tenderness in the right upper quadrant with guarding. No masses or abdominal hernia. - MSK: No digital cyanosis. Open, non-draining foot wounds status post multiple debridements. Normal strength and tone in all 4 limbs. - Skin: Warm and dry. Rash noted. - Neuro: Alert. No facial droop or slurred speech. Extraocular movements intact. Sensation intact to soft touch in all 4 limbs. - Psych: Appropriate mood. Full affect. Oriented to person, place, time, and situation. laboratory and microbiology Laboratory Tests 04/09/24 05:17 04/07/24 05:20 Test 04/09/24 05:17 Range/Units Serum Glucose 128 H 74-106 mg/dL Problem List/Assessment/Plan Problems(with codes): (1) Febrile (2) Leukocytosis (3) Abdominal pain (4) Sepsis (5) Diabetes (6) Acute cholecystitis Problem List/Assessment/Plan ID Problem List: - Cerebrovascular accident with left hand paresis - Bed confined - Uncontrolled diabetes mellitus - Hypercholesterolemia - Hypertension - Paroxysmal atrial fibrillation - Cholelithiasis - Cholecystitis - Recent right MCA stroke with mid-cervical occlusion of right ICA - Necrotic infections of bilateral feet, status post multiple debridements Assessment This is a 68 y.o. male with a past medical history of cerebrovascular accident with left hand paresis, uncontrolled diabetes mellitus, hypercholesterolemia, hypertension, paroxysmal atrial fibrillation on Eliquis, recent right MCA stroke with mid-cervical occlusion of the right internal carotid artery, and status post coronary artery bypass graft several years ago, who presents with right upper quadrant pain, obstructive jaundice, and failure to thrive. The patient has been experiencing intermittent right upper quadrant pain and obstructive jaundice. He previously underwent percutaneous transhepatic biliary drainage at [facility] several weeks ago (records pending). Currently, he exhibits poor appetite, significant weight loss, and signs of acute cholecystitis. Vital signs are notable for fever (Tmax 101.5F) and tachycardia. Physical examination reveals right upper quadrant tenderness with guarding, mildly distended abdomen, rash, and open, non-draining foot wounds status post multiple debridements. Laboratory studies show leukocytosis (WBC 11.7 K/L) and elevated creatinine (1.56 mg/dL). Imaging studies are consistent with acute cholecystitis and stercoral colitis. 04/01: whitecount is 10.4 , patients MRPC shows no intro or extra hepatic biliary ductal dilation , no MRI evidence of chololithiasis , gallbladder wall thickening suggest acute cholecystitis . abdominal ultrasound shows cholelithiasis 04/02: per operative note patient underwent a laparoscopic cholecystectomy procedure and was found fibrinous flegmon in the right upper quadrant which consisted of trezors coils momentum loops of bowel. the inflammation was exuberant and after dissecting the momentum from the fundus of the gallbladder became obious the patient had a rupture of the gallbladder which spilled a myriad of natalya stones which was then seaaled off by this momentum and contained in the biloma and a puss collection . cultures and sensitivities were obtained . the myriad little stones were aspirated and scooped up to the best of my ability and then the gallbladder was resected by circumferentially dissecting the cystic duct and cystic artery . no attempt was made to trace the cystic duct to the common duct due to the inflammation and ligament is like adhesions and concretions . area was irrigated . patient remains normal throughout the procedure but there were no complications however the choice of laparoscopic procedure was chosen due to patient having a poor overall health 04/03: patients is growing 2 gram negative rods from operative cultures , whitecount is 16 and has tachycardia to 107s 04/04: whitecount is 13/7 , operative cultures are growing pseudomonas and enterobacteria both having sensitivities to levofloxacin , passing flattis and tolerating clear liquid diet 04/05:whitecount is 13.7 04/06: whitecount is 13.7 and BP is soft with MAPS 04/07: Ct abdomen and pelvis shows surgical drain has been placed in right upper quadrant and there remains post surgical debris and small amount of free fluid in the gallbladder 04/08: appears to be clinically responding to antibiotic therapy , whitecount is 10.8 04/10: patient appears to be clinically responding to antibiotics and is improving Plan: - recommend continuing Zosyn while inpatient , when ready for discharge recommend oral Flagyl 500 mg 3x a day and oral levofloxacin 750 mg 1x a day to complete an additional 14 day course - given lack of bowel movements and low BP would repeat CT abdomen to ensure theirs no ongoing fluid collection that doesn't warrant additional drainage especially given pseudomanias cultures - follow up with infectious disease clinic in 4 weeks - defer post op management to general surgery - follow up on gram negative rods species - if tachycardia and other signs of sepsis persists would consider getting blood cultures , broadening out gram negative coverage - keep blood sugars under 180 Isolation Precautions: Standard Plan discussed with: Other Dietary Evaluation Review Recommendations by RD: Dietary education by RD Comments: 1. Recommend timely diet advancement to Low Fat diet s/p cholecystectomy 2. May consider Ensure Clear supplements TID in the interim appropriate for current diet order to optimize nutrition (250 kcal, 8 gm pro, 0 gm fat/carton) 3. Consulted for TPN/EN: TPN is not clinically indicated at this time due to functional GI tract; should nutrition support be desired, would recommend tube feeding with peptide-based, hydrolyzed formula for improved tolerance - however, advise oral diet trial prior to initiating nutrition support measures Expected Outcomes/Goals: Diet advancement, improved nutritional status, post-op healing TRENT STRINGER MD Apr 10, 2024 23:54
[2024-04-11] VITALS (8 sets, daily range): BP systolic 90–148; BP diastolic 57–67; PULSE 72–105; RESP 17–18; TEMP 98–100.5; O2SAT 93–98
--- NOTE | 2024-04-11 00:41 | DVHPN2 ---
Progress Note - Dictate Date Seen: Apr 10, 2024 Has the PT tested + for MRSA If YES, has PT been informed?: No Medical Necessity Reason Pt with a Central, PICC or Fol: No Medical Necessity Reason Postop care IV antibiotics Pain management Subjective The patient is seen at 233 The patient seems to be recovering well from the surgical pains GLORIA drain still is collecting approximately 100 mL as of today\ * Remains hemodynamically stable and afebrile * Currently receives IV fluids and IV antibiotics * Receives parenteral analgesics for pain management * Currently followed by Dr. Vinnie acosta from General surgery, Dr. Adriel Mcarthur cardiology and Dr. Raul Barroso infectious Diseas Overnight events are reviewed through medical chart and case discussion with patient's assigned RN while making rounds on patient on the day of service vital signs Vital Sign Date Time Temp Pulse Resp B/P (MAP) Pulse Ox O2 Delivery O2 Flow Rate FiO2 04/10/24 22:30 101 17 106/70 04/10/24 21:00 99.4 96 99.4 04/10/24 08:00 Room Air* 0 21 Total Intake and Output 04/10/24 04/10/24 04/11/24 15:00 23:00 07:00 Intake Total 382.5 ml Output Total 400 ml Balance -17.5 ml medications Current Medications Medications Dose Ordered Sig/Arnua Route Start Time Stop Time Status Last Admin Dose Admin Ceftriaxone Sodium/Dextrose 50 ml @ 50 mls/hr DAILY@2100 IV 04/04/24 21:00 Cancel Metronidazole 100 ml @ 100 mls/hr Q8HR IV 04/04/24 06:00 Cancel Ondansetron HCl 4 mg Q4HPRN PRN IV 04/03/24 22:45 Pantoprazole Sodium 40 mg DAILY IV 04/04/24 10:00 04/10/24 10:53 40 MG Atorvastatin Calcium 40 mg HS PO 04/04/24 22:00 04/10/24 22:29 40 MG Aspirin 81 mg DAILY PO 04/04/24 10:00 04/10/24 10:53 81 MG Diagnostic Test (Pha) 1 strip ACHS 04/04/24 07:00 04/10/24 22:00 1 STRIP Insulin Human Regular HS SC 04/04/24 22:00 04/10/24 22:33 3 UNITS Insulin Human Regular AC SC 04/04/24 07:00 04/10/24 17:55 2 UNITS Dextrose 50 ml UD PRN IV 04/03/24 22:45 Nitroglycerin 0.4 mg Q5MINP PRN SL 04/03/24 22:45 Potassium Chloride/Dextrose/ Sod Cl 1,000 ml @ 100 mls/hr Q10H IV 04/04/24 00:15 04/10/24 19:03 100 MLS/HR Hydromorphone HCl 0.4 mg Q3HPRN PRN IV 04/04/24 00:15 04/10/24 15:19 0.4 MG Hydromorphone HCl 0.8 mg Q3HPRN PRN IV 04/04/24 00:15 04/10/24 22:30 0.8 MG Piperacillin Sod/ Tazobactam Sod 100 ml @ 25 mls/hr Q8HR@0100,0900,1700 IV 04/04/24 01:00 04/10/24 18:08 25 MLS/HR Docusate Sodium 100 mg BIDP PO 04/05/24 10:00 04/10/24 22:28 100 MG objective Physical Exam General appearance: Well-developed, well-nourished middle-aged male Awake alert oriented x2 Reports post surgical pains Head: Normocephalic nontraumatic Eyes: EOMI, ALIE, sclera nonicteric, conjunctive- pale ENT: No congestion, NSL bilateral symmetrical, oral mucosa wet Neck: Supple, carotid upstroke +2, trachea midline, JVD 2 cm No goiter/stridor, no lymph nodes JVD-3 cm, C spine- Full ROM No use of sternomastoid muscle Chest: Bilateral symmetrical expansions, no costochondral tenderness Lungs: clear breath sounds all over except reduced at bases CVS: PMI-1 cm medial to L MCL in fifth ICS , S1-S2 NSR no S3 GI: Abdomen soft, obese, bowel sounds hypoactive RUQ-postsurgical wound -clean minimally tender GLORIA drain-serous discharge No RUQ tenderness, no rebound tenderness No hepatosplenomegaly, no mass no hernia , : No CVA tenderness, no bladder mass palpable, genitalia-NE SKIN: Turgor dry, color pink, no rash, no icterus, No varicosity, no ulcers or wounds EXTs: No edema, color pink, no rash, no ecchymosis distal pulses +2 capillary refill <2 seconds, No open wounds JOINTS; full range of motion BACK: No apparent lumbosacral spinal muscle tenderness, LYMPH NODES: No cervical, axillary or inguinal lymph nodes Neuro: Awake alert oriented x2 speech nonfluent expressive aphasia Left-sided hemiparesis motor strength three to 4/5 Sensory-changes of DPN as before PSYCH: Affect mildly depressed-denies suicidal ideation laboratory and microbiology Laboratory Tests 04/09/24 05:17 04/07/24 05:20 Test 04/09/24 05:17 Range/Units Serum Glucose 128 H 74-106 mg/dL Problem List 1. Status post laparoscopy...................... Postoperative day 8 Evacuation of biloma, drainage of abscess and lysis of adhesions 2. Status post Acute cholecystitis Complicated by biloma, abscess and adhesions 3. Leukocytosis.................................................. Improved 4. Acute on chronic iron-deficiency anemia from a. postsurgical blood loss vs hemodilution 5. 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 Fairly well-controlled diabetes and hypertension 2' Diagnosis/Comorbidities Noncompliance with medical recommendations Doppler lower Assessment/Plan Medical decision making The patient remains hemodynamically stable afebrile on a postop day 8 of his receiving laparoscopic cholecystectomy * Noted serous drainage through the GLORIA drain-total amount 100 mL * Recommended IV hydration at 50 mL/hour * Continued on IV antibiotics-Rocephin and Flagyl * Consider tapering patient off parenteral analgesics for postsurgical pains * Start patient on oral narcotic analgesics for pain management * Continue soft diet with addition of supplements * Currently followed by Dr. Raul Barroso as Infectious Disease Dr. Vinnie Acosta General surgery and Dr. Adriel Mcarthur from Cardiology Treatment Plans Continue hospital stay on telemetry Continue IV hydration at reduced rate of 50 mL/hour Continue parenteral analgesics for postsurgical pains Continue IV Rocephin and Flagyl Check CBC CMP Mag and phos level in the morning Awaiting input of Dr. Vinnie Acosta about discontinuation of GLORIA drain if indicated Reviewed input of Dr. Raul Barroso ,ID and Dr. Adriel Mcarthur Cardiology Refer to social Service for discharge planning Reviewed input of ETHICS INSTRUCTOR-GI consult Reconciled home meds VTE precautions Update patient The patient and and his were well informed by me about 1. Clinical impression, treatment plans, side effects of medications, course of the disease and guarded prognosis 2. All patient's question/ concerns raised by patient are satisfactorily addressed by me Total time spent 45 minutes 40% of time spent interviewing the patient and physical exam 30% of time spent in gathering lab datas and imaging studies 30 % of time is spent in patient education Dietary Evaluation Review Recommendations by RD: Dietary education by RD Comments: 1. Recommend timely diet advancement to Low Fat diet s/p cholecystectomy 2. May consider Ensure Clear supplements TID in the interim appropriate for current diet order to optimize nutrition (250 kcal, 8 gm pro, 0 gm fat/carton) 3. Consulted for TPN/EN: TPN is not clinically indicated at this time due to functional GI tract; should nutrition support be desired, would recommend tube feeding with peptide-based, hydrolyzed formula for improved tolerance - however, advise oral diet trial prior to initiating nutrition support measures Expected Outcomes/Goals: Diet advancement, improved nutritional status, post-op healing Plan discussed with: Patient Total Time (mins): 45 ALLA BARROSO MD Apr 11, 2024 00:41
[2024-04-11] MEDS ORDERED: ONDANSETRON HCL 4 MG/2 ML VIAL IV PRN (00:45)
[2024-04-11] MEDS: D5W/SOD CHL 0.45%/KCL 20MEQ 1,000 ML IV SCH (00:45)
[2024-04-11] MEDS: PANTOPRAZOLE 40 MG TAB PO SCH (05:12)
[2024-04-11 06:14] LABS: Basophils # (auto) 0.1 10 ^3/uL (0-0.2); Basophils % (auto) 0.4 % (0.0-2.0); Eosinophils # (auto) 0.2 10 ^3/uL (0-0.8); Eosinophils % (auto) 1.1 % (0.0-7.0); Hematocrit 30.3 % (41.0-53.0); Lymphocytes # (auto) 2.2 10 ^3/uL (0.4-5.4); Lymphocytes % (auto) 15.4 % (10.0-50.0); Mean Corpuscular Hemoglobin 29.4 pg (28.0-32.0); Mean Corpuscular Volume 89.2 fL (80.0-100.0); Neutrophils # (auto) 10.6 10 ^3/uL (1.6-8.6); Neutrophils % (auto) 76.1 % (37.0-80.0); Platelet Count (auto) 382 10^3/uL (140-450); Red Cell Distribution Width 14.1 % (11.8-14.3)
[2024-04-11 06:22] LABS: Alanine Aminotransferase 15 U/L (7-40); Albumin 3.8 g/dL (3.2-4.8); Alkaline Phosphatase 84 U/L (46-116); Anion Gap 9 (5-15); Aspartate Aminotransferase 15 U/L (13-40); Calcium 9.2 mg/dL (8.7-10.4); Carbon Dioxide 22 mmol/L (20-31); Chloride 104 mmol/L (98-107)
[2024-04-11 06:23] LABS: Bilirubin, Total 0.4 mg/dL (0.2-1.0); Blood Urea Nitrogen 9 mg/dL (9-23); Glucose 119 mg/dL (74-106); Sodium 135 mmol/L (136-145); Total Protein 6.1 g/dL (5.7-8.2)
--- NOTE | 2024-04-11 12:25 | DVHPN2 ---
Progress Note Date Seen: Apr 11, 2024 Resident Creating Document: ENRIQUE YORK RESIDENT Has the PT tested + for MRSA If YES, has PT been informed?: No Medical Necessity Reason Pt with a Central, PICC or Fol: No Subjective Review of Systems The patient was seen and examined on the bedside. He is alert oriented x2. Complaint of mild abdominal pain around the incision site. No other active complaint. Objective vital signs Vital Sign Date Time Temp Pulse Resp B/P (MAP) Pulse Ox O2 Delivery O2 Flow Rate FiO2 04/11/24 08:10 100.4 101 17 90/61 (71) 95 100.4 04/11/24 08:00 Room Air* 0 21 Total Intake and Output 04/10/24 04/10/24 04/11/24 15:00 23:00 07:00 Intake Total 382.5 ml 200 ml Output Total 400 ml 650 ml Balance -17.5 ml -450 ml medications Current Medications Medications Dose Ordered Sig/Aruna Route Start Time Stop Time Status Last Admin Dose Admin Ceftriaxone Sodium/Dextrose 50 ml @ 50 mls/hr DAILY@2100 IV 04/04/24 21:00 Cancel Metronidazole 100 ml @ 100 mls/hr Q8HR IV 04/04/24 06:00 Cancel Atorvastatin Calcium 40 mg HS PO 04/04/24 22:00 04/10/24 22:29 40 MG Aspirin 81 mg DAILY PO 04/04/24 10:00 04/11/24 09:19 81 MG Diagnostic Test (Pha) 1 strip ACHS 04/04/24 07:00 04/11/24 11:42 1 STRIP Insulin Human Regular HS SC 04/04/24 22:00 04/10/24 22:33 3 UNITS Insulin Human Regular AC SC 04/04/24 07:00 04/11/24 11:42 3 UNITS Dextrose 50 ml UD PRN IV 04/03/24 22:45 Piperacillin Sod/ Tazobactam Sod 100 ml @ 25 mls/hr Q8HR@0100,0900,1700 IV 04/04/24 01:00 04/11/24 09:21 25 MLS/HR Docusate Sodium 100 mg BIDP PO 04/05/24 10:00 04/11/24 09:19 100 MG Potassium Chloride/Dextrose/ Sod Cl 1,000 ml @ 50 mls/hr Q20H IV 04/11/24 00:45 04/11/24 05:11 50 MLS/HR Ondansetron HCl 4 mg Q6HPRN PRN IV 04/11/24 00:45 Pantoprazole Sodium 40 mg DAILY@0600 PO 04/11/24 06:00 04/11/24 05:12 40 MG Hydromorphone HCl 0.2 mg Q4HPRN PRN IV 04/11/24 01:15 Hydromorphone HCl 0.4 mg Q4HPRN PRN IV 04/11/24 01:15 Acetaminophen/ Hydrocodone Bitart 1 tab Q4HPRN PRN PO 04/11/24 01:15 Examination Physical examination: General Appearance: Alert, Oriented X3, Cooperative, No acute distress HEENT: Atraumatic, PERRLA, EOMI, Mucous membrane moist/pink Respiratory: Clear to auscultation, Normal air movement Cardiovascular: Regular rate, Normal S1, Normal S2, No murmurs, no chest wall tenderness Abdominal: Normal bowel sounds, Soft, No tenderness, No hepatospenomegaly, No masses Extremities: No clubbing, No cyanosis, No edema, Normal pulses, No tenderness/swelling Skin: No rashes, No breakdown, No significant lesion Neuro: Normal speech, Strength at 5/5 X4 ext, Normal tone, Sensation intact, Cranial nerves 3-12 NL, Reflexes 2+ Psych/Mental Status: Mental status NL, Mood NL laboratory and microbiology Laboratory Tests 04/11/24 04:59 Test 04/11/24 04:59 Range/Units Serum Glucose 119 H 74-106 mg/dL Microbiology Date/Time Source Procedure Growth Status 04/02/24 17:16 Nose MRSA Screen - Final Complete 04/02/24 13:00 Gallbladder Fluid Anaerobic Culture - Final Complete 04/02/24 13:00 Aerobic Culture - Final Pseudomonas aeruginosa Enterobacter aerogenes Complete Labs and/or images reviewed: Labs reviewed by me, Image(s) reviewed by me Problem List/Assessment/Plan Problem List/Assessment/Plan Assessment: # S/P Laparoscopy, evacuation of right upper quadrant biloma and abscess evacuation of myriad of small black gallstones, cholecystectomy, day 9 # Right upper quadrant pain likely secondary to acute cholecystitis # acute cholecystitis with cholelithiasis # s/p percutaneous transhepatic biliary drainage # Transaminitis without hyperbilirubinemia # History of obstructive jaundice with choledocholithiasis # History of CVA with left-sided hemiparesis Plan: - Cardiac diet. - continue IV antibiotic as per primary team - Surgery and infectious disease in board - Follow surgical recommendation regarding clearance for discharge. - Physical therapy as tolerated. - Monitor liver enzymes and bilirubin - Patient is stable from GI standpoint and we will sign off for now. Plan discussed with Dr. Henley Plan discussed with: Patient, Other Dietary Evaluation Review Recommendations by RD: Dietary education by RD Comments: 1. Recommend timely diet advancement to Low Fat diet s/p cholecystectomy 2. May consider Ensure Clear supplements TID in the interim appropriate for current diet order to optimize nutrition (250 kcal, 8 gm pro, 0 gm fat/carton) 3. Consulted for TPN/EN: TPN is not clinically indicated at this time due to functional GI tract; should nutrition support be desired, would recommend tube feeding with peptide-based, hydrolyzed formula for improved tolerance - however, advise oral diet trial prior to initiating nutrition support measures Expected Outcomes/Goals: Diet advancement, improved nutritional status, post-op healing ENRIQUE YORK RESIDENT Apr 11, 2024 12:25
--- NOTE | 2024-04-11 17:44 | DVHPN2 ---
Progress Note - Dictate Date Seen: Apr 11, 2024 Has the PT tested + for MRSA If YES, has PT been informed?: No Medical Necessity Reason Pt with a Central, PICC or Fol: No Subjective Patient was seen and evaluated in follow up. Patient was febrile at 100.4 this morning and was placed on cooling measures. Patient is currently afebrile. GLORIA drain output today was 100 ml. Telemetry reviewed. vital signs Vital Sign Date Time Temp Pulse Resp B/P (MAP) Pulse Ox O2 Delivery O2 Flow Rate FiO2 04/11/24 08:10 100.4 101 17 90/61 (71) 95 100.4 04/11/24 08:00 Room Air* 0 21 Total Intake and Output 04/10/24 04/10/24 04/11/24 15:00 23:00 07:00 Intake Total 382.5 ml 200 ml Output Total 400 ml 650 ml Balance -17.5 ml -450 ml medications Current Medications Medications Dose Ordered Sig/Aruna Route Start Time Stop Time Status Last Admin Dose Admin Ceftriaxone Sodium/Dextrose 50 ml @ 50 mls/hr DAILY@2100 IV 04/04/24 21:00 Cancel Metronidazole 100 ml @ 100 mls/hr Q8HR IV 04/04/24 06:00 Cancel Atorvastatin Calcium 40 mg HS PO 04/04/24 22:00 04/10/24 22:29 40 MG Aspirin 81 mg DAILY PO 04/04/24 10:00 04/11/24 09:19 81 MG Diagnostic Test (Pha) 1 strip ACHS 04/04/24 07:00 04/11/24 07:06 1 STRIP Insulin Human Regular HS SC 04/04/24 22:00 04/10/24 22:33 3 UNITS Insulin Human Regular AC SC 04/04/24 07:00 04/10/24 17:55 2 UNITS Dextrose 50 ml UD PRN IV 04/03/24 22:45 Piperacillin Sod/ Tazobactam Sod 100 ml @ 25 mls/hr Q8HR@0100,0900,1700 IV 04/04/24 01:00 04/11/24 09:21 25 MLS/HR Docusate Sodium 100 mg BIDP PO 04/05/24 10:00 04/11/24 09:19 100 MG Potassium Chloride/Dextrose/ Sod Cl 1,000 ml @ 50 mls/hr Q20H IV 04/11/24 00:45 04/11/24 05:11 50 MLS/HR Ondansetron HCl 4 mg Q6HPRN PRN IV 04/11/24 00:45 Pantoprazole Sodium 40 mg DAILY@0600 PO 04/11/24 06:00 04/11/24 05:12 40 MG Hydromorphone HCl 0.2 mg Q4HPRN PRN IV 04/11/24 01:15 Hydromorphone HCl 0.4 mg Q4HPRN PRN IV 04/11/24 01:15 Acetaminophen/ Hydrocodone Bitart 1 tab Q4HPRN PRN PO 04/11/24 01:15 objective GENERAL: Awake, alert, oriented. LUNGS: Clear. CARDIOVASCULAR: Heart sounds are good. ABDOMEN: Soft. RUQ TTP. laboratory and microbiology Laboratory Tests 04/11/24 04:59 Test 04/11/24 04:59 Range/Units Serum Glucose 119 H 74-106 mg/dL Problem List Acute RUQ abdominal pain. Acute cholecystitis. Recent history of choledocholithiasis and obstructive jaundice. Status post percutaneous transhepatic biliary drainage. Hypovolemia. Right CVA with left-sided hemiparesis. Diabetes. Hypertension. Noncompliance with medical recommendations. Assessment/Plan Continued all current supportive medical care. Aspirin, Lipitor. Dilaudid for pain management. IV antibiotics as ordered. GI prophylactics. Additional plan as per the hospital course. Dietary Evaluation Review Recommendations by RD: Dietary education by RD Comments: 1. Recommend timely diet advancement to Low Fat diet s/p cholecystectomy 2. May consider Ensure Clear supplements TID in the interim appropriate for current diet order to optimize nutrition (250 kcal, 8 gm pro, 0 gm fat/carton) 3. Consulted for TPN/EN: TPN is not clinically indicated at this time due to functional GI tract; should nutrition support be desired, would recommend tube feeding with peptide-based, hydrolyzed formula for improved tolerance - however, advise oral diet trial prior to initiating nutrition support measures Expected Outcomes/Goals: Diet advancement, improved nutritional status, post-op healing Plan discussed with: Patient ANITRA HOOD MD Apr 11, 2024 11:11
--- NOTE | 2024-04-11 18:40 | DVHPN2 ---
Progress Note - Surgical Date Seen: Apr 11, 2024 Post op day Post op day: 9 Subjective Patient reports: Other (patient resting comfortably ) Review of Systems: Not Done Objective Vital signs Vital Sign Date Time Temp Pulse Resp B/P (MAP) Pulse Ox O2 Delivery O2 Flow Rate FiO2 04/11/24 16:32 100.5 72 18 117/65 (82) 98 100.5 04/11/24 08:00 Room Air* 0 21 Total Intake and Output 04/10/24 04/10/24 04/11/24 15:00 23:00 07:00 Intake Total 382.5 ml 200 ml Output Total 400 ml 650 ml Balance -17.5 ml -450 ml Medications Current Medications Medications Dose Ordered Sig/Aruna Route Start Time Stop Time Status Last Admin Dose Admin Ceftriaxone Sodium/Dextrose 50 ml @ 50 mls/hr DAILY@2100 IV 04/04/24 21:00 Cancel Metronidazole 100 ml @ 100 mls/hr Q8HR IV 04/04/24 06:00 Cancel Atorvastatin Calcium 40 mg HS PO 04/04/24 22:00 04/10/24 22:29 40 MG Aspirin 81 mg DAILY PO 04/04/24 10:00 04/11/24 09:19 81 MG Diagnostic Test (Pha) 1 strip ACHS 04/04/24 07:00 04/11/24 16:54 1 STRIP Insulin Human Regular HS SC 04/04/24 22:00 04/10/24 22:33 3 UNITS Insulin Human Regular AC SC 04/04/24 07:00 04/11/24 17:03 2 UNITS Dextrose 50 ml UD PRN IV 04/03/24 22:45 Piperacillin Sod/ Tazobactam Sod 100 ml @ 25 mls/hr Q8HR@0100,0900,1700 IV 04/04/24 01:00 04/11/24 16:53 25 MLS/HR Docusate Sodium 100 mg BIDP PO 04/05/24 10:00 04/11/24 09:19 100 MG Potassium Chloride/Dextrose/ Sod Cl 1,000 ml @ 50 mls/hr Q20H IV 04/11/24 00:45 04/11/24 05:11 50 MLS/HR Ondansetron HCl 4 mg Q6HPRN PRN IV 04/11/24 00:45 Pantoprazole Sodium 40 mg DAILY@0600 PO 04/11/24 06:00 04/11/24 05:12 40 MG Hydromorphone HCl 0.2 mg Q4HPRN PRN IV 04/11/24 01:15 Hydromorphone HCl 0.4 mg Q4HPRN PRN IV 04/11/24 01:15 Acetaminophen/ Hydrocodone Bitart 1 tab Q4HPRN PRN PO 04/11/24 01:15 Laboratory Laboratory Tests 04/11/24 04:59 Test 04/11/24 04:59 Range/Units Serum Glucose 119 H 74-106 mg/dL Microbiology Date/Time Source Procedure Growth Status 04/02/24 17:16 Nose MRSA Screen - Final Complete 04/02/24 13:00 Gallbladder Fluid Anaerobic Culture - Final Complete 04/02/24 13:00 Aerobic Culture - Final Pseudomonas aeruginosa Enterobacter aerogenes Complete Examination: GENERAL:Normal, HEENT:Normal, NECK:Normal, LUNGS:Normal, CVS:Normal, ABDOMEN:Abnormal (GLORIA drains ), MSK:Normal, SKIN:Normal, NEURO:Normal Labs and/or images reviewed: Labs reviewed by me, Image(s) reviewed by me Problem List/Assessment/Plan Problems: (1) Febrile (2) Leukocytosis (3) Acute cholecystitis (4) S/P cholecystectomy Assessment and Plan no new complaints abdomen soft , non distended, appropriately tender wounds clean dry and intact GLORIA drains about 150cc serous/brown fluid Plan: continue with current treatment continue IV antibiotics pain control ok to downgrade to telemetry with a sitter Dr. Marin agrees with Plan 04/06/2024 no new complaints abdomen soft , non distended, appropriately tender wounds clean dry and intact GLORIA drains about 15cc serous/brown fluid tolerating diet Plan: continue current treatment IV antibiotics 04/08/2024 @1500 feeling better abdomen soft , non distended, non tender, passing gas, denies nausea or vomiting wounds clean dry and intact GLORIA drains one with bile/serous colored fluid 30cc second drain minimal serous fluid tolerating diet Plan: Empty drains daily IV hydration and antibiotics advance diet as tolerated Discussed with Dr. Marin 04/10/24 feeling better abdomen soft , non distended, non tender, passing gas, denies nausea or vomiting wounds clean dry and intact GLORIA drains one with bile/serous colored fluid 15cc, drainage decreased per assessment and notes second drain minimal serous fluid tolerating diet Plan: Empty drains daily IV hydration and antibiotics advance diet as tolerated Discussed with Dr. Marin S/P laparoscopic cholecystectomy patient resting in bed, GLORIA drains one with minimal serous fluid 2nd GLORIA drain 30cc bile colored fluid (total output 100cc over 24 hours) -febrile -elevated WBC Plan: Continue IV antibiotics replace Velazquez with an external catheter blood culture chest X-ray tomorrow AM GLORIA drains to Bulb suction Plan discussed with Dr. Marin and agrees My Orders My Orders Orders - LAMAR CHOE DNP Procedure Category Date Status Time Blood Culture ISA 04/11/24 Logged 18:24 Plan discussed with Plan discussed with: Other (Dr. Marin) Visit Coding Surgery Date of Service if different f: Apr 11, 2024 Billing Provider: YOEL MARIN MD Surgery Visit Codes: [id number] INP/OBS CARE(HIGH) LAMAR CHOE DNP Apr 11, 2024 18:40
[2024-04-12] VITALS (7 sets, daily range): BP systolic 108–122; BP diastolic 44–73; PULSE 65–114; RESP 16–17; TEMP 97.2–98.6; O2SAT 93–98
--- NOTE | 2024-04-12 | DVHPN2 ---
Progress Note - Dictate Date Seen: Apr 11, 2024 Has the PT tested + for MRSA If YES, has PT been informed?: No Medical Necessity Reason Pt with a Central, PICC or Fol: No Subjective The patient is seen at [facility] on a tele [place] He seems to a significant recovery from laparoscopic cholecystectomy including evacuation of biloma, drainage abscess and lysis of adhesions * Remains hemodynamically stable and afebrile on postop day 7 * Currently receives IV fluids and IV antibiotics * Receives parenteral analgesics at less frequent times per day * Tolerates soft diet well * Received physical therapy evaluation * Currently followed by Dr. Vinnie acosta from General surgery, Dr. Adriel Mcarthur cardiology and Dr. Raul Barroso infectious Disease Overnight events are reviewed through medical chart and case discussion with patient's assigned RN while making rounds on patient on the day of service vital signs Vital Sign Date Time Temp Pulse Resp B/P (MAP) Pulse Ox O2 Delivery O2 Flow Rate FiO2 04/11/24 21:00 98.9 105 18 96/57 (70) 96 98.9 04/11/24 20:00 Room Air* 0 21 Total Intake and Output 04/11/24 04/11/24 04/12/24 15:00 23:00 07:00 Intake Total 520 ml Output Total 120 ml 1100 ml Balance -120 ml -580 ml medications Current Medications Medications Dose Ordered Sig/Aruna Route Start Time Stop Time Status Last Admin Dose Admin Ceftriaxone Sodium/Dextrose 50 ml @ 50 mls/hr DAILY@2100 IV 04/04/24 21:00 Cancel Metronidazole 100 ml @ 100 mls/hr Q8HR IV 04/04/24 06:00 Cancel Atorvastatin Calcium 40 mg HS PO 04/04/24 22:00 04/11/24 21:16 40 MG Aspirin 81 mg DAILY PO 04/04/24 10:00 04/11/24 09:19 81 MG Diagnostic Test (Pha) 1 strip ACHS 04/04/24 07:00 04/11/24 21:23 1 STRIP Insulin Human Regular HS SC 04/04/24 22:00 04/11/24 21:29 2 UNITS Insulin Human Regular AC SC 04/04/24 07:00 04/11/24 17:03 2 UNITS Dextrose 50 ml UD PRN IV 04/03/24 22:45 Piperacillin Sod/ Tazobactam Sod 100 ml @ 25 mls/hr Q8HR@0100,0900,1700 IV 04/04/24 01:00 04/11/24 16:53 25 MLS/HR Docusate Sodium 100 mg BIDP PO 04/05/24 10:00 04/11/24 09:19 100 MG Potassium Chloride/Dextrose/ Sod Cl 1,000 ml @ 50 mls/hr Q20H IV 04/11/24 00:45 04/11/24 05:11 50 MLS/HR Ondansetron HCl 4 mg Q6HPRN PRN IV 04/11/24 00:45 Pantoprazole Sodium 40 mg DAILY@0600 PO 04/11/24 06:00 04/11/24 05:12 40 MG Hydromorphone HCl 0.2 mg Q4HPRN PRN IV 04/11/24 01:15 Hydromorphone HCl 0.4 mg Q4HPRN PRN IV 04/11/24 01:15 Acetaminophen/ Hydrocodone Bitart 1 tab Q4HPRN PRN PO 04/11/24 01:15 objective Physical Exam General appearance: Well-developed, well-nourished middle-aged male Awake alert oriented x2 Reports post surgical pains Head: Normocephalic nontraumatic Eyes: EOMI, ALIE, sclera nonicteric, conjunctive- pale ENT: No congestion, NSL bilateral symmetrical, oral mucosa wet Neck: Supple, carotid upstroke +2, trachea midline, JVD 2 cm No goiter/stridor, no lymph nodes JVD-3 cm, C spine- Full ROM No use of sternomastoid muscle Chest: Bilateral symmetrical expansions, no costochondral tenderness Lungs: clear breath sounds all over except reduced at bases CVS: PMI-1 cm medial to L MCL in fifth ICS , S1-S2 NSR no S3 GI: Abdomen soft, obese, bowel sounds hypoactive RUQ-postsurgical wound -clean minimally tender GLORIA drain-serous discharge No RUQ tenderness, no rebound tenderness No hepatosplenomegaly, no mass no hernia , : No CVA tenderness, no bladder mass palpable, genitalia-NE SKIN: Turgor dry, color pink, no rash, no icterus, No varicosity, no ulcers or wounds EXTs: No edema, color pink, no rash, no ecchymosis distal pulses +2 capillary refill <2 seconds, No open wounds JOINTS; full range of motion BACK: No apparent lumbosacral spinal muscle tenderness, LYMPH NODES: No cervical, axillary or inguinal lymph nodes Neuro: Awake alert oriented x2 speech nonfluent expressive aphasia Left-sided hemiparesis motor strength three to 4/5 Sensory-changes of DPN as before PSYCH: Affect mildly depressed-denies suicidal ideation laboratory and microbiology Laboratory Tests 04/11/24 04:59 Test 04/11/24 04:59 Range/Units Serum Glucose 119 H 74-106 mg/dL Problem List ing [id number] 1. Status post laparoscopy...................... Postoperative day 9 Evacuation of biloma, drainage of abscess and lysis of adhesions 2. Status post Acute cholecystitis Complicated by biloma, abscess and adhesions 3. Leukocytosis.................................................. Improved 4. Acute on chronic iron-deficiency anemia from a. postsurgical blood loss vs hemodilution 5. 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 Fairly well-controlled diabetes and hypertension 2' Diagnosis/Comorbidities Noncompliance with medical recommendations Doppler lower Assessment/Plan Medical decision making The patient remains hemodynamically stable afebrile on a postop day 9 of his receiving laparoscopic cholecystectomy * Noted serous drainage through the GLORIA drain-total amount not recorded * Recommended IV hydration at 50 mL/hour * Continued on IV antibiotics-Rocephin and Flagyl * Consider tapering patient off parenteral analgesics for postsurgical pains * Start patient on oral narcotic analgesics for pain management * Continue soft diet with addition of supplements * Currently followed by Dr. Raul Barroso as Infectious Disease Dr. Vinnie Acosta General surgery and Dr. Adriel Mcarthur from Cardiology * Refer patient to physical therapy-patient could not participate well Treatment Plans Continue hospital stay on telemetry Continue IV hydration at reduced rate of 50 mL/hour Consider weaning patient off parenteral analgesics for postsurgical pains Continue IV Rocephin and Flagyl Check CBC CMP Mag and phos level in the morning Awaiting input of Dr. Vinnie Acosta about discontinuation of GLORIA drain if indicated Reviewed input of Dr. Raul Barroso ,ID and Dr. Adriel Mcarthur Cardiology Refer to social Service for discharge planning to local SNF Reviewed input of MATERIALS ENGINEER-GI consult Reconciled home meds VTE precautions Update patient The patient and and his were well informed by me about 1. Clinical impression, treatment plans, side effects of medications, course of the disease and guarded prognosis 2. All patient's question/ concerns raised by patient are satisfactorily addressed by me Total time spent 45 minutes 40% of time spent interviewing the patient and physical exam 30% of time spent in gathering lab datas and imaging studies 30 % of time is spent in patient education Dietary Evaluation Review Recommendations by RD: Dietary education by RD Comments: 1. Recommend timely diet advancement to Low Fat diet s/p cholecystectomy 2. May consider Ensure Clear supplements TID in the interim appropriate for current diet order to optimize nutrition (250 kcal, 8 gm pro, 0 gm fat/carton) 3. Consulted for TPN/EN: TPN is not clinically indicated at this time due to functional GI tract; should nutrition support be desired, would recommend tube feeding with peptide-based, hydrolyzed formula for improved tolerance - however, advise oral diet trial prior to initiating nutrition support measures Expected Outcomes/Goals: Diet advancement, improved nutritional status, post-op healing Plan discussed with: Patient Total Time (mins): 45 ALLA BARROSO MD Apr 12, 2024 00:00
--- NOTE | 2024-04-12 05:36 | DVH ---
EXAM: XY CHEST XRAY 1 VIEW HISTORY: r/o pneumonia COMPARISON: XY CHEST PORTABLE on DOS: 03/29/24 TECHNIQUE: Portable AP view of the chest was performed. FINDINGS: Lung volumes are somewhat low. No pneumothorax, consolidative infiltrates, or pulmonary edema. The h eart is borderline enlarged. IMPRESSION: No acute intrathoracic process.
--- NOTE | 2024-04-12 10:04 | DVHPN2 ---
Progress Note - Surgical Date Seen: Apr 12, 2024 Post op day Post op day: 10 Subjective Patient reports: No new complaints Review of Systems: HEENT:Normal, CVS:Normal, RESPIRATORY:Normal, GI:Normal, :Normal, NEURO:Normal Objective Vital signs Vital Sign Date Time Temp Pulse Resp B/P (MAP) Pulse Ox O2 Delivery O2 Flow Rate FiO2 04/12/24 09:00 97.4 105 17 108/50 (69) 97 97.4 04/11/24 20:00 Room Air* 0 21 Total Intake and Output 04/11/24 04/11/24 04/12/24 15:00 23:00 07:00 Intake Total 520 ml 750 ml Output Total 120 ml 1100 ml 900 ml Balance -120 ml -580 ml -150 ml Medications Current Medications Medications Dose Ordered Sig/Aruna Route Start Time Stop Time Status Last Admin Dose Admin Ceftriaxone Sodium/Dextrose 50 ml @ 50 mls/hr DAILY@2100 IV 04/04/24 21:00 Cancel Metronidazole 100 ml @ 100 mls/hr Q8HR IV 04/04/24 06:00 Cancel Atorvastatin Calcium 40 mg HS PO 04/04/24 22:00 04/11/24 21:16 40 MG Aspirin 81 mg DAILY PO 04/04/24 10:00 04/12/24 09:12 81 MG Diagnostic Test (Pha) 1 strip ACHS 04/04/24 07:00 04/12/24 08:02 1 STRIP Insulin Human Regular HS SC 04/04/24 22:00 04/11/24 21:29 2 UNITS Insulin Human Regular AC SC 04/04/24 07:00 04/12/24 06:25 2 UNITS Dextrose 50 ml UD PRN IV 04/03/24 22:45 Piperacillin Sod/ Tazobactam Sod 100 ml @ 25 mls/hr Q8HR@0100,0900,1700 IV 04/04/24 01:00 04/12/24 09:04 25 MLS/HR Docusate Sodium 100 mg BIDP PO 04/05/24 10:00 04/12/24 09:04 100 MG Potassium Chloride/Dextrose/ Sod Cl 1,000 ml @ 50 mls/hr Q20H IV 04/11/24 00:45 04/12/24 00:42 50 MLS/HR Ondansetron HCl 4 mg Q6HPRN PRN IV 04/11/24 00:45 Pantoprazole Sodium 40 mg DAILY@0600 PO 04/11/24 06:00 04/12/24 05:40 40 MG Hydromorphone HCl 0.2 mg Q4HPRN PRN IV 04/11/24 01:15 Hydromorphone HCl 0.4 mg Q4HPRN PRN IV 04/11/24 01:15 Acetaminophen/ Hydrocodone Bitart 1 tab Q4HPRN PRN PO 04/11/24 01:15 Laboratory Laboratory Tests 04/11/24 04:59 Test 04/11/24 04:59 Range/Units Serum Glucose 119 H 74-106 mg/dL Microbiology Date/Time Source Procedure Growth Status 04/02/24 17:16 Nose MRSA Screen - Final Complete 04/02/24 13:00 Gallbladder Fluid Anaerobic Culture - Final Complete 04/02/24 13:00 Aerobic Culture - Final Pseudomonas aeruginosa Enterobacter aerogenes Complete Examination: GENERAL:Normal, HEENT:Normal, NECK:Normal, LUNGS:Normal, CVS:Normal, ABDOMEN:Normal, SKIN:Normal Problem List/Assessment/Plan Problems: (1) Leukocytosis (2) S/P cholecystectomy Assessment and Plan no new complaints abdomen soft , non distended, appropriately tender wounds clean dry and intact GLORIA drains about 150cc serous/brown fluid Plan: continue with current treatment continue IV antibiotics pain control ok to downgrade to telemetry with a sitter Dr. Marin agrees with Plan 04/06/2024 no new complaints abdomen soft , non distended, appropriately tender wounds clean dry and intact GLORIA drains about 15cc serous/brown fluid tolerating diet Plan: continue current treatment IV antibiotics 04/08/2024 @1500 feeling better abdomen soft , non distended, non tender, passing gas, denies nausea or vomiting wounds clean dry and intact GLORIA drains one with bile/serous colored fluid 30cc second drain minimal serous fluid tolerating diet Plan: Empty drains daily IV hydration and antibiotics advance diet as tolerated Discussed with Dr. Marin 04/10/24 feeling better abdomen soft , non distended, non tender, passing gas, denies nausea or vomiting wounds clean dry and intact GLORIA drains one with bile/serous colored fluid 15cc, drainage decreased per assessment and notes second drain minimal serous fluid tolerating diet Plan: Empty drains daily IV hydration and antibiotics advance diet as tolerated Discussed with Dr. Marin S/P laparoscopic cholecystectomy patient resting in bed, GLORIA drains one with minimal serous fluid 2nd GLORIA drain 30cc bile colored fluid (total output 100cc over 24 hours) -febrile -elevated WBC Plan: Continue IV antibiotics replace Velazquez with an external catheter blood culture chest X-ray tomorrow AM GLORIA drains to Bulb suction Plan discussed with Dr. Marin and agrees 04/12/2024 s/p laparoscopic cholecystectomy no new complaints awake resting comfortably in bed abdominal wounds clean dry and francisco intact GLORIA drains one with 20cc bile fluid second drain 5 cc serous fluid , output decreasing pending labs , review of chest x ray Plan: GLORIA drains bulb suction use of incentive spirometer continue IV antibiotics labs pending blood cultures My Orders My Orders Orders - LAMAR CHOE DNP Procedure Category Date Status Time Blood Culture ISA 04/11/24 In Process 18:24 Chest Xray 1 View XY 04/12/24 Resulted 07:00 Communication Order ORDERS 04/11/24 Transmitted 18:42 Complete Blood Count LAB 04/12/24 Logged 09:41 Comprehensive LAB 04/12/24 Logged Metabolic Panel 09:41 Plan discussed with Plan discussed with: Patient, Other (Dr. Marin) Visit Coding Surgery Date of Service if different f: Apr 12, 2024 Billing Provider: YOEL AMRIN MD Surgery Visit Codes: [id number] INP/OBS CARE(HIGH) LAMAR CHOE DNP Apr 12, 2024 10:04
--- NOTE | 2024-04-12 12:38 | DVHPN2 ---
Progress Note - Dictate Date Seen: Apr 12, 2024 Has the PT tested + for MRSA If YES, has PT been informed?: No Medical Necessity Reason Pt with a Central, PICC or Fol: No Subjective Patient was seen and evaluated in follow up. Patient is resting in bed. GLORIA drain output is decreasing. Chest x-ray shows NAD. BS in the 160s. Telemetry reviewed. vital signs Vital Sign Date Time Temp Pulse Resp B/P (MAP) Pulse Ox O2 Delivery O2 Flow Rate FiO2 04/12/24 09:00 97.4 105 17 108/50 (69) 97 97.4 04/11/24 20:00 Room Air* 0 21 Total Intake and Output 04/11/24 04/11/24 04/12/24 15:00 23:00 07:00 Intake Total 520 ml 750 ml Output Total 120 ml 1100 ml 900 ml Balance -120 ml -580 ml -150 ml medications Current Medications Medications Dose Ordered Sig/Aruna Route Start Time Stop Time Status Last Admin Dose Admin Ceftriaxone Sodium/Dextrose 50 ml @ 50 mls/hr DAILY@2100 IV 04/04/24 21:00 Cancel Metronidazole 100 ml @ 100 mls/hr Q8HR IV 04/04/24 06:00 Cancel Atorvastatin Calcium 40 mg HS PO 04/04/24 22:00 04/11/24 21:16 40 MG Aspirin 81 mg DAILY PO 04/04/24 10:00 04/12/24 09:12 81 MG Diagnostic Test (Pha) 1 strip ACHS 04/04/24 07:00 04/12/24 11:33 1 STRIP Insulin Human Regular HS SC 04/04/24 22:00 04/11/24 21:29 2 UNITS Insulin Human Regular AC SC 04/04/24 07:00 04/12/24 11:37 3 UNITS Dextrose 50 ml UD PRN IV 04/03/24 22:45 Piperacillin Sod/ Tazobactam Sod 100 ml @ 25 mls/hr Q8HR@0100,0900,1700 IV 04/04/24 01:00 04/12/24 09:04 25 MLS/HR Docusate Sodium 100 mg BIDP PO 04/05/24 10:00 04/12/24 09:04 100 MG Potassium Chloride/Dextrose/ Sod Cl 1,000 ml @ 50 mls/hr Q20H IV 04/11/24 00:45 04/12/24 00:42 50 MLS/HR Ondansetron HCl 4 mg Q6HPRN PRN IV 04/11/24 00:45 Pantoprazole Sodium 40 mg DAILY@0600 PO 04/11/24 06:00 04/12/24 05:40 40 MG Hydromorphone HCl 0.2 mg Q4HPRN PRN IV 04/11/24 01:15 Hydromorphone HCl 0.4 mg Q4HPRN PRN IV 04/11/24 01:15 Acetaminophen/ Hydrocodone Bitart 1 tab Q4HPRN PRN PO 04/11/24 01:15 objective GENERAL: Awake, alert, oriented. LUNGS: Clear. CARDIOVASCULAR: Heart sounds are good. ABDOMEN: Soft. RUQ TTP. laboratory and microbiology Laboratory Tests 04/11/24 04:59 Test 04/11/24 04:59 Range/Units Serum Glucose 119 H 74-106 mg/dL Problem List Acute RUQ abdominal pain. Acute cholecystitis. Recent history of choledocholithiasis and obstructive jaundice. Status post percutaneous transhepatic biliary drainage. Hypovolemia. Right CVA with left-sided hemiparesis. Diabetes. Hypertension. Noncompliance with medical recommendations. Assessment/Plan Continued all current supportive medical care. Aspirin, Lipitor. Dilaudid for pain management. IV antibiotics as ordered. GI prophylactics. Additional plan as per the hospital course. Dietary Evaluation Review Recommendations by RD: Dietary education by RD Comments: 1. Recommend timely diet advancement to Low Fat diet s/p cholecystectomy 2. May consider Ensure Clear supplements TID in the interim appropriate for current diet order to optimize nutrition (250 kcal, 8 gm pro, 0 gm fat/carton) 3. Consulted for TPN/EN: TPN is not clinically indicated at this time due to functional GI tract; should nutrition support be desired, would recommend tube feeding with peptide-based, hydrolyzed formula for improved tolerance - however, advise oral diet trial prior to initiating nutrition support measures Expected Outcomes/Goals: Diet advancement, improved nutritional status, post-op healing Plan discussed with: Patient ANITRA HOOD MD Apr 12, 2024 11:43
[2024-04-12 13:45] LABS: Basophils # (auto) 0 10 ^3/uL (0-0.2); Basophils % (auto) 0.3 % (0.0-2.0); Eosinophils # (auto) 0 10 ^3/uL (0-0.8); Eosinophils % (auto) 0.2 % (0.0-7.0); Hematocrit 33.1 % (41.0-53.0); Hemoglobin 11.1 g/dL (13.5-17.5); Lymphocytes # (auto) 1.6 10 ^3/uL (0.4-5.4); Mean Corpuscular Hemoglobin 29.7 pg (28.0-32.0); Mean Corpuscular Hgb Conc. 33.4 g/dL (32.0-36.0); Mean Corpuscular Volume 88.9 fL (80.0-100.0); Monocytes # (auto) 0.9 10 ^3/uL (0-1.3); Monocytes % (auto) 6.6 % (0.0-12.0); Neutrophils # (auto) 10.6 10 ^3/uL (1.6-8.6); Neutrophils % (auto) 80.9 % (37.0-80.0); Platelet Count (auto) 411 10^3/uL (140-450); Red Blood Cells 3.72 10^6/uL (4.5-5.90); Red Cell Distribution Width 13.8 % (11.8-14.3); White Blood Cell 13.2 10^3/uL (4.4-10.8)
[2024-04-12 14:21] LABS: Alanine Aminotransferase 18 U/L (7-40); Albumin 4.1 g/dL (3.2-4.8); Alkaline Phosphatase 98 U/L (46-116); Anion Gap 6 (5-15); BUN/Creatinine Ratio 10.6 (10.0-20.0); Bilirubin, Total 0.5 mg/dL (0.2-1.0); Calcium 9.4 mg/dL (8.7-10.4); Carbon Dioxide 26 mmol/L (20-31); Chloride 102 mmol/L (98-107); Potassium 3.7 mmol/L (3.5-5.1); Total Protein 6.7 g/dL (5.7-8.2)
[2024-04-12 14:33] LABS: Aspartate Aminotransferase 10 U/L (13-40); Blood Urea Nitrogen 7 mg/dL (9-23); Glucose 169 mg/dL (74-106); Sodium 134 mmol/L (136-145)
[2024-04-12] MEDS ORDERED: VANCOMYCIN PER PHARMACY 0 MG IV SCH (14:45)
[2024-04-12] MEDS: VANCOMYCIN 1GM/250ML KIT 250 ML IV SCH (16:13)
--- NOTE | 2024-04-12 17:32 | DVHPN2 ---
Consult Progress Note Date Seen: Apr 11, 2024 Subjective Patient reports: Other (had a fever of 110.4 today and didnt feel it , is tolerating diet and is a bit tachycardic and mildly hypertensive ) Objective vital signs Vital Sign Date Time Temp Pulse Resp B/P (MAP) Pulse Ox O2 Delivery O2 Flow Rate FiO2 04/12/24 17:25 97.2 107 17 109/66 (80) 98 97.2 04/12/24 08:00 Room Air* 0 21 Total Intake and Output 04/11/24 04/11/24 04/12/24 15:00 23:00 07:00 Intake Total 520 ml 750 ml Output Total 120 ml 1100 ml 900 ml Balance -120 ml -580 ml -150 ml medications Current Medications Medications Dose Ordered Sig/Aruna Route Start Time Stop Time Status Last Admin Dose Admin Ceftriaxone Sodium/Dextrose 50 ml @ 50 mls/hr DAILY@2100 IV 04/04/24 21:00 Cancel Metronidazole 100 ml @ 100 mls/hr Q8HR IV 04/04/24 06:00 Cancel Atorvastatin Calcium 40 mg HS PO 04/04/24 22:00 04/11/24 21:16 40 MG Aspirin 81 mg DAILY PO 04/04/24 10:00 04/12/24 09:12 81 MG Diagnostic Test (Pha) 1 strip ACHS 04/04/24 07:00 04/12/24 11:33 1 STRIP Insulin Human Regular HS SC 04/04/24 22:00 04/11/24 21:29 2 UNITS Insulin Human Regular AC SC 04/04/24 07:00 04/12/24 11:37 3 UNITS Dextrose 50 ml UD PRN IV 04/03/24 22:45 Piperacillin Sod/ Tazobactam Sod 100 ml @ 25 mls/hr Q8HR@0100,0900,1700 IV 04/04/24 01:00 04/12/24 09:04 25 MLS/HR Docusate Sodium 100 mg BIDP PO 04/05/24 10:00 04/12/24 09:04 100 MG Potassium Chloride/Dextrose/ Sod Cl 1,000 ml @ 50 mls/hr Q20H IV 04/11/24 00:45 04/12/24 00:42 50 MLS/HR Ondansetron HCl 4 mg Q6HPRN PRN IV 04/11/24 00:45 Pantoprazole Sodium 40 mg DAILY@0600 PO 04/11/24 06:00 04/12/24 05:40 40 MG Hydromorphone HCl 0.2 mg Q4HPRN PRN IV 04/11/24 01:15 Hydromorphone HCl 0.4 mg Q4HPRN PRN IV 04/11/24 01:15 Acetaminophen/ Hydrocodone Bitart 1 tab Q4HPRN PRN PO 04/11/24 01:15 Vancomycin HCl 0 ml @ 0 mls/hr UD IV 04/12/24 14:45 UNV Vancomycin HCl 250 ml @ 250 mls/hr Q1H IV 04/12/24 15:45 04/12/24 17:44 04/12/24 16:13 250 MLS/HR laboratory and microbiology Laboratory Tests 04/12/24 13:26 Test 04/12/24 13:26 Range/Units Serum Glucose 169 H 74-106 mg/dL Problem List/Assessment/Plan Problems(with codes): (1) Febrile (2) Leukocytosis (3) Abdominal pain (4) Sepsis (5) Diabetes (6) Acute cholecystitis Problem List/Assessment/Plan ID Problem List: - Cerebrovascular accident with left hand paresis - Bed confined - Uncontrolled diabetes mellitus - Hypercholesterolemia - Hypertension - Paroxysmal atrial fibrillation - Cholelithiasis - Cholecystitis - Recent right MCA stroke with mid-cervical occlusion of right ICA - Necrotic infections of bilateral feet, status post multiple debridements Assessment This is a 68 y.o. male with a past medical history of cerebrovascular accident with left hand paresis, uncontrolled diabetes mellitus, hypercholesterolemia, hypertension, paroxysmal atrial fibrillation on Eliquis, recent right MCA stroke with mid-cervical occlusion of the right internal carotid artery, and status post coronary artery bypass graft several years ago, who presents with right upper quadrant pain, obstructive jaundice, and failure to thrive. The patient has been experiencing intermittent right upper quadrant pain and obstructive jaundice. He previously underwent percutaneous transhepatic biliary drainage at [facility] several weeks ago (records pending). Currently, he exhibits poor appetite, significant weight loss, and signs of acute cholecystitis. Vital signs are notable for fever (Tmax 101.5F) and tachycardia. Physical examination reveals right upper quadrant tenderness with guarding, mildly distended abdomen, rash, and open, non-draining foot wounds status post multiple debridements. Laboratory studies show leukocytosis (WBC 11.7 K/L) and elevated creatinine (1.56 mg/dL). Imaging studies are consistent with acute cholecystitis and stercoral colitis. 04/01: whitecount is 10.4 , patients MRPC shows no intro or extra hepatic biliary ductal dilation , no MRI evidence of chololithiasis , gallbladder wall thickening suggest acute cholecystitis . abdominal ultrasound shows cholelithiasis 04/02: per operative note patient underwent a laparoscopic cholecystectomy procedure and was found fibrinous flegmon in the right upper quadrant which consisted of trezors coils momentum loops of bowel. the inflammation was exuberant and after dissecting the momentum from the fundus of the gallbladder became obious the patient had a rupture of the gallbladder which spilled a myriad of natalya stones which was then seaaled off by this momentum and contained in the biloma and a puss collection . cultures and sensitivities were obtained . the myriad little stones were aspirated and scooped up to the best of my ability and then the gallbladder was resected by circumferentially dissecting the cystic duct and cystic artery . no attempt was made to trace the cystic duct to the common duct due to the inflammation and ligament is like adhesions and concretions . area was irrigated . patient remains normal throughout the procedure but there were no complications however the choice of laparoscopic procedure was chosen due to patient having a poor overall health 2: patients is growing 2 gram negative rods from operative cultures , whitecount is 16 and has tachycardia to 107s 2: whitecount is 13/7 , operative cultures are growing pseudomonas and enterobacteria both having sensitivities to levofloxacin , passing flattis and tolerating clear liquid diet 04/05:whitecount is 13.7 04/06: whitecount is 13.7 and BP is soft with MAPS 2: Ct abdomen and pelvis shows surgical drain has been placed in right upper quadrant and there remains post surgical debris and small amount of free fluid in the gallbladder 04/08: appears to be clinically responding to antibiotic therapy , whitecount is 10.8 04/10: patient appears to be clinically responding to antibiotics and is improving 04/11: whitecount is 14 and chest xray shows intrathoracic process Plan: - agree with plan to acquiree blood cultures - continuing Zosyn while inpatient , when ready for discharge recommend oral Flagyl 500 mg 3x a day and oral levofloxacin 750 mg 1x a day to complete an additional 14 day course - given lack of bowel movements and low BP would repeat CT abdomen to ensure theirs no ongoing fluid collection that doesn't warrant additional drainage especially given pseudomanias cultures - aspiriation precautions - follow up with infectious disease clinic in 4 weeks - defer post op management to general surgery - follow up on gram negative rods species - if tachycardia and other signs of sepsis persists would consider getting blood cultures , broadening out gram negative coverage - keep blood sugars under 180 Isolation Precautions: Standard Plan discussed with: Other Dietary Evaluation Review Recommendations by RD: Dietary education by RD Comments: 1. Recommend timely diet advancement to Low Fat diet s/p cholecystectomy 2. May consider Ensure Clear supplements TID in the interim appropriate for current diet order to optimize nutrition (250 kcal, 8 gm pro, 0 gm fat/carton) 3. Consulted for TPN/EN: TPN is not clinically indicated at this time due to functional GI tract; should nutrition support be desired, would recommend tube feeding with peptide-based, hydrolyzed formula for improved tolerance - however, advise oral diet trial prior to initiating nutrition support measures Expected Outcomes/Goals: Diet advancement, improved nutritional status, post-op healing TRENT STRINGER MD Apr 12, 2024 17:32
--- NOTE | 2024-04-12 17:36 | DVHPN2 ---
Consult Progress Note Date Seen: Apr 12, 2024 Subjective Patient reports: Other (remains tahyccardic and GLORIA drains are outputting 50ccs today , blood cultures have come back positive for GPC and clusters in 1/4 bottles ) Objective vital signs Vital Sign Date Time Temp Pulse Resp B/P (MAP) Pulse Ox O2 Delivery O2 Flow Rate FiO2 04/12/24 17:25 97.2 107 17 109/66 (80) 98 97.2 04/12/24 08:00 Room Air* 0 21 Total Intake and Output 04/11/24 04/11/24 04/12/24 15:00 23:00 07:00 Intake Total 520 ml 750 ml Output Total 120 ml 1100 ml 900 ml Balance -120 ml -580 ml -150 ml medications Current Medications Medications Dose Ordered Sig/Aruna Route Start Time Stop Time Status Last Admin Dose Admin Ceftriaxone Sodium/Dextrose 50 ml @ 50 mls/hr DAILY@2100 IV 04/04/24 21:00 Cancel Metronidazole 100 ml @ 100 mls/hr Q8HR IV 04/04/24 06:00 Cancel Atorvastatin Calcium 40 mg HS PO 04/04/24 22:00 04/11/24 21:16 40 MG Aspirin 81 mg DAILY PO 04/04/24 10:00 04/12/24 09:12 81 MG Diagnostic Test (Pha) 1 strip ACHS 04/04/24 07:00 04/12/24 11:33 1 STRIP Insulin Human Regular HS SC 04/04/24 22:00 04/11/24 21:29 2 UNITS Insulin Human Regular AC SC 04/04/24 07:00 04/12/24 11:37 3 UNITS Dextrose 50 ml UD PRN IV 04/03/24 22:45 Piperacillin Sod/ Tazobactam Sod 100 ml @ 25 mls/hr Q8HR@0100,0900,1700 IV 04/04/24 01:00 04/12/24 09:04 25 MLS/HR Docusate Sodium 100 mg BIDP PO 04/05/24 10:00 04/12/24 09:04 100 MG Potassium Chloride/Dextrose/ Sod Cl 1,000 ml @ 50 mls/hr Q20H IV 04/11/24 00:45 04/12/24 00:42 50 MLS/HR Ondansetron HCl 4 mg Q6HPRN PRN IV 04/11/24 00:45 Pantoprazole Sodium 40 mg DAILY@0600 PO 04/11/24 06:00 04/12/24 05:40 40 MG Hydromorphone HCl 0.2 mg Q4HPRN PRN IV 04/11/24 01:15 Hydromorphone HCl 0.4 mg Q4HPRN PRN IV 04/11/24 01:15 Acetaminophen/ Hydrocodone Bitart 1 tab Q4HPRN PRN PO 04/11/24 01:15 Vancomycin HCl 0 ml @ 0 mls/hr UD IV 04/12/24 14:45 UNV Vancomycin HCl 250 ml @ 250 mls/hr Q1H IV 04/12/24 15:45 04/12/24 17:44 04/12/24 16:13 250 MLS/HR Physical Exam: - General: NAD - Neck: Supple. No masses. - HEENT: PERRL. Normal lids and conjunctiva. Moist mucous membranes. Oropharynx without lesions, exudates, or excessive erythema. Normal appearance of the external aspects of the nose and ears. - Heart: Regular rhythm, normal rate. No murmur. No lower extremity edema. - Lungs: Normal respiratory effort. Clear to auscultation bilaterally. No wheezes. No crackles. - Abdomen: Mildly distended. Tenderness in the right upper quadrant with guarding. No masses or abdominal hernia. - MSK: No digital cyanosis. Open, non-draining foot wounds status post multiple debridements. Normal strength and tone in all 4 limbs. - Skin: Warm and dry. Rash noted. - Neuro: Alert. No facial droop or slurred speech. Extraocular movements intact. Sensation intact to soft touch in all 4 limbs. - Psych: Appropriate mood. Full affect. Oriented to person, place, time, and situation. laboratory and microbiology Laboratory Tests 04/12/24 13:26 Test 04/12/24 13:26 Range/Units Serum Glucose 169 H 74-106 mg/dL Problem List/Assessment/Plan Problems(with codes): (1) Acute cholecystitis (2) Diabetes (3) Sepsis (4) Abdominal pain (5) Hypertension (6) Leukocytosis (7) Febrile Problem List/Assessment/Plan ID Problem List: - Cerebrovascular accident with left hand paresis - Bed confined - Uncontrolled diabetes mellitus - Hypercholesterolemia - Hypertension - Paroxysmal atrial fibrillation - Cholelithiasis - Cholecystitis - Recent right MCA stroke with mid-cervical occlusion of right ICA - Necrotic infections of bilateral feet, status post multiple debridements Assessment This is a 68 y.o. male with a past medical history of cerebrovascular accident with left hand paresis, uncontrolled diabetes mellitus, hypercholesterolemia, hypertension, paroxysmal atrial fibrillation on Eliquis, recent right MCA stroke with mid-cervical occlusion of the right internal carotid artery, and status post coronary artery bypass graft several years ago, who presents with right upper quadrant pain, obstructive jaundice, and failure to thrive. The patient has been experiencing intermittent right upper quadrant pain and obstructive jaundice. He previously underwent percutaneous transhepatic biliary drainage at [facility] several weeks ago (records pending). Currently, he exhibits poor appetite, significant weight loss, and signs of acute cholecystitis. Vital signs are notable for fever (Tmax 101.5F) and tachycardia. Physical examination reveals right upper quadrant tenderness with guarding, mildly distended abdomen, rash, and open, non-draining foot wounds status post multiple debridements. Laboratory studies show leukocytosis (WBC 11.7 K/L) and elevated creatinine (1.56 mg/dL). Imaging studies are consistent with acute cholecystitis and stercoral colitis. 04/01: whitecount is 10.4 , patients MRPC shows no intro or extra hepatic biliary ductal dilation , no MRI evidence of chololithiasis , gallbladder wall thickening suggest acute cholecystitis . abdominal ultrasound shows cholelithiasis 04/02: per operative note patient underwent a laparoscopic cholecystectomy procedure and was found fibrinous flegmon in the right upper quadrant which consisted of trezors coils momentum loops of bowel. the inflammation was exuberant and after dissecting the momentum from the fundus of the gallbladder became obious the patient had a rupture of the gallbladder which spilled a myriad of natalya stones which was then seaaled off by this momentum and contained in the biloma and a puss collection . cultures and sensitivities were obtained . the myriad little stones were aspirated and scooped up to the best of my ability and then the gallbladder was resected by circumferentially dissecting the cystic duct and cystic artery . no attempt was made to trace the cystic duct to the common duct due to the inflammation and ligament is like adhesions and concretions . area was irrigated . patient remains normal throughout the procedure but there were no complications however the choice of laparoscopic procedure was chosen due to patient having a poor overall health 04/03: patients is growing 2 gram negative rods from operative cultures , whitecount is 16 and has tachycardia to 107s 04/04: whitecount is 13/7 , operative cultures are growing pseudomonas and enterobacteria both having sensitivities to levofloxacin , passing flattis and tolerating clear liquid diet 04/05:whitecount is 13.7 2: whitecount is 13.7 and BP is soft with MAPS 04/07: Ct abdomen and pelvis shows surgical drain has been placed in right upper quadrant and there remains post surgical debris and small amount of free fluid in the gallbladder 04/08: appears to be clinically responding to antibiotic therapy , whitecount is 10.8 04/10: patient appears to be clinically responding to antibiotics and is improving 04/11: whitecount is 14 and chest xray shows intrathoracic process 04/12: GPC in blood cultures could be skin nikolai contaminant vs staph infection vs enterococcus infection , will need to allow to speciate Plan: - start vancomycin - repeat blood cultures in 24 hours - follow up on speciation and sensitivities - agree with plan to acquiree blood cultures - continuing Zosyn while inpatient , when ready for discharge recommend oral Flagyl 500 mg 3x a day and oral levofloxacin 750 mg 1x a day to complete an additional 14 day course - given lack of bowel movements and low BP would repeat CT abdomen to ensure theirs no ongoing fluid collection that doesn't warrant additional drainage especially given pseudomanias cultures - aspiriation precautions - follow up with infectious disease clinic in 4 weeks - defer post op management to general surgery - follow up on gram negative rods species - if tachycardia and other signs of sepsis persists would consider getting blood cultures , broadening out gram negative coverage - keep blood sugars under 180 Isolation Precautions: Standard Plan discussed with: Other Dietary Evaluation Review Recommendations by RD: Dietary education by RD Comments: 1. Recommend timely diet advancement to Low Fat diet s/p cholecystectomy 2. May consider Ensure Clear supplements TID in the interim appropriate for current diet order to optimize nutrition (250 kcal, 8 gm pro, 0 gm fat/carton) 3. Consulted for TPN/EN: TPN is not clinically indicated at this time due to functional GI tract; should nutrition support be desired, would recommend tube feeding with peptide-based, hydrolyzed formula for improved tolerance - however, advise oral diet trial prior to initiating nutrition support measures Expected Outcomes/Goals: Diet advancement, improved nutritional status, post-op healing TRENT STRINGER MD Apr 12, 2024 17:36
[2024-04-12] MEDS: HYDROcodone-ACET 5/325MG TAB PO PRN (19:12)
--- NOTE | 2024-04-12 21:06 | DVHPN2 ---
Progress Note - Dictate Date Seen: Apr 12, 2024 Has the PT tested + for MRSA If YES, has PT been informed?: No Medical Necessity Reason Pt with a Central, PICC or Fol: No Medical Necessity Reason Postsurgical care IV antibiotics Parenteral analgesics Physical therapy Subjective The patient is seen at 233 on a tele [place] He seems to a significant recovery from postsurgical pains due to laparoscopic Cholecystectomy including evacuation of biloma, drainage abscess and lysis of adhesions * Remains hemodynamically stable and afebrile on postop day 7 * Currently receives IV fluids and IV antibiotics * Receives parenteral analgesics on less frequent basis * Tolerated soft diet well * Received physical therapy evaluation * Currently followed by Dr. Vinnie acosta from General surgery, Dr. Adriel Mcarthur cardiology and Dr. Raul Barroso infectious Disease Overnight events are reviewed through medical chart and case discussion with patient's assigned RN while making rounds on patient on the day of service vital signs Vital Sign Date Time Temp Pulse Resp B/P (MAP) Pulse Ox O2 Delivery O2 Flow Rate FiO2 04/12/24 20:55 98.4 107 17 114/69 (84) 96 98.4 04/12/24 08:00 Room Air* 0 21 Total Intake and Output 04/11/24 04/11/24 04/12/24 15:00 23:00 07:00 Intake Total 520 ml 750 ml Output Total 120 ml 1100 ml 900 ml Balance -120 ml -580 ml -150 ml medications Current Medications Medications Dose Ordered Sig/Aruna Route Start Time Stop Time Status Last Admin Dose Admin Ceftriaxone Sodium/Dextrose 50 ml @ 50 mls/hr DAILY@2100 IV 04/04/24 21:00 Cancel Metronidazole 100 ml @ 100 mls/hr Q8HR IV 04/04/24 06:00 Cancel Atorvastatin Calcium 40 mg HS PO 04/04/24 22:00 04/11/24 21:16 40 MG Aspirin 81 mg DAILY PO 04/04/24 10:00 04/12/24 09:12 81 MG Diagnostic Test (Pha) 1 strip ACHS 04/04/24 07:00 04/12/24 17:00 1 STRIP Insulin Human Regular HS SC 04/04/24 22:00 04/11/24 21:29 2 UNITS Insulin Human Regular AC SC 04/04/24 07:00 04/12/24 17:39 2 UNITS Dextrose 50 ml UD PRN IV 04/03/24 22:45 Piperacillin Sod/ Tazobactam Sod 100 ml @ 25 mls/hr Q8HR@0100,0900,1700 IV 04/04/24 01:00 04/12/24 19:32 25 MLS/HR Docusate Sodium 100 mg BIDP PO 04/05/24 10:00 04/12/24 09:04 100 MG Potassium Chloride/Dextrose/ Sod Cl 1,000 ml @ 50 mls/hr Q20H IV 04/11/24 00:45 04/12/24 00:42 50 MLS/HR Ondansetron HCl 4 mg Q6HPRN PRN IV 04/11/24 00:45 Pantoprazole Sodium 40 mg DAILY@0600 PO 04/11/24 06:00 04/12/24 05:40 40 MG Hydromorphone HCl 0.2 mg Q4HPRN PRN IV 04/11/24 01:15 Hydromorphone HCl 0.4 mg Q4HPRN PRN IV 04/11/24 01:15 Acetaminophen/ Hydrocodone Bitart 1 tab Q4HPRN PRN PO 04/11/24 01:15 04/12/24 19:12 1 TAB Vancomycin HCl 0 ml @ 0 mls/hr UD IV 04/12/24 14:45 Vancomycin HCl 250 ml @ 250 mls/hr Q12H IV 04/13/24 04:00 objective Physical Exam General appearance: Well-developed, well-nourished middle-aged male Awake alert oriented x2 Reports post surgical pains Head: Normocephalic nontraumatic Eyes: EOMI, ALIE, sclera nonicteric, conjunctive- pale ENT: No congestion, NSL bilateral symmetrical, oral mucosa wet Neck: Supple, carotid upstroke +2, trachea midline, JVD 2 cm No goiter/stridor, no lymph nodes JVD-3 cm, C spine- Full ROM No use of sternomastoid muscle Chest: Bilateral symmetrical expansions, no costochondral tenderness Lungs: clear breath sounds all over except reduced at bases CVS: PMI-1 cm medial to L MCL in fifth ICS , S1-S2 NSR no S3 GI: Abdomen soft, obese, bowel sounds hypoactive RUQ-postsurgical wound -clean minimally tender GLORIA drain-serous discharge No RUQ tenderness, no rebound tenderness No hepatosplenomegaly, no mass no hernia , : No CVA tenderness, no bladder mass palpable, genitalia-NE SKIN: Turgor dry, color pink, no rash, no icterus, No varicosity, no ulcers or wounds EXTs: No edema, color pink, no rash, no ecchymosis distal pulses +2 capillary refill <2 seconds, No open wounds JOINTS; full range of motion BACK: No apparent lumbosacral spinal muscle tenderness, LYMPH NODES: No cervical, axillary or inguinal lymph nodes Neuro: Awake alert oriented x2 speech nonfluent expressive aphasia Left-sided hemiparesis motor strength three to 4/5 Sensory-changes of DPN as before PSYCH: Affect mildly depressed-denies suicidal ideation laboratory and microbiology Laboratory Tests 04/12/24 13:26 Test 04/12/24 13:26 Range/Units Serum Glucose 169 H 74-106 mg/dL Problem List 1. Status post laparoscopy...................... Postoperative day 10 Evacuation of biloma, drainage of abscess and lysis of adhesions 2. Status post Acute cholecystitis Complicated by biloma, abscess and adhesions 3. Leukocytosis.................................................. Improved 4. Acute on chronic iron-deficiency anemia from a. postsurgical blood loss vs hemodilution 5. 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 Fairly well-controlled diabetes and hypertension 2' Diagnosis/Comorbidities Noncompliance with medical recommendations Doppler lower Assessment/Plan Medical decision making The patient remains hemodynamically stable afebrile on a postop day 10 comment of his receiving laparoscopic cholecystectomy * Noted serous drainage through the GLORIA drain-total amount 100 mL * Recommended IV hydration at 50 mL/hour * Continued on IV antibiotics-Rocephin and Flagyl * Consider tapering patient off parenteral analgesics for postsurgical pains * Start patient on oral narcotic analgesics for pain management * Continue soft diet with addition of supplements * The patient could not participate in physical therapy for difficulty in standing posture * Currently followed by Dr. Raul Barroso as Infectious Disease DrHazel Acosta General surgery and Dr. Adriel Mcarthur from Cardiology Treatment Plans Continue hospital stay on telemetry Continue IV hydration at reduced rate of 50 mL/hour Consider weaning patient off parenteral analgesics for postsurgical pains Continue IV Rocephin and Flagyl Check CBC CMP Mag and phos level in the morning Awaiting input of Dr. Vinnie Acosta about discontinuation of GLORIA drain if indicated Reviewed input of Dr. Raul Barroso ,E[facility] and Dr. Adriel Mcarthur Cardiology Refer to social Service for discharge planning Reviewed input of CHAINSTITCH FELLED SEAM OPERATOR-GI consult Reconciled home meds VTE precautions Update patient The patient and and his were well informed by me about 1. Clinical impression, treatment plans, side effects of medications, course of the disease and guarded prognosis 2. All patient's question/ concerns raised by patient are satisfactorily addressed by me Total time spent 45 minutes 40% of time spent interviewing the patient and physical exam 30% of time spent in gathering lab datas and imaging studies 30 % of time is spent in patient education Prognosis Fair Dietary Evaluation Review Recommendations by RD: Dietary education by RD Comments: 1. Recommend timely diet advancement to Low Fat diet s/p cholecystectomy 2. May consider Ensure Clear supplements TID in the interim appropriate for current diet order to optimize nutrition (250 kcal, 8 gm pro, 0 gm fat/carton) 3. Consulted for TPN/EN: TPN is not clinically indicated at this time due to functional GI tract; should nutrition support be desired, would recommend tube feeding with peptide-based, hydrolyzed formula for improved tolerance - however, advise oral diet trial prior to initiating nutrition support measures Expected Outcomes/Goals: Diet advancement, improved nutritional status, post-op healing Plan discussed with: Patient Total Time (mins): 45 ALLA BARROSO MD Apr 12, 2024 21:06
[2024-04-13] VITALS (8 sets, daily range): BP systolic 79–114; BP diastolic 49–66; PULSE 84–116; RESP 16–19; TEMP 97.4–99.6; O2SAT 93–96
[2024-04-13] MEDS: VANCOMYCIN 1GM/250ML KIT 250 ML IV SCH (04:06)
[2024-04-13 05:57] LABS: Anion Gap 10 (5-15); Carbon Dioxide 24 mmol/L (20-31); Chloride 102 mmol/L (98-107); Potassium 3.9 mmol/L (3.5-5.1); Sodium 136 mmol/L (136-145)
[2024-04-13 05:58] LABS: Calcium 9.3 mg/dL (8.7-10.4)
[2024-04-13 06:03] LABS: BUN/Creatinine Ratio 10.3 (10.0-20.0); Blood Urea Nitrogen 9 mg/dL (9-23)
[2024-04-13 06:07] LABS: Glucose 163 mg/dL (74-106)
[2024-04-13] MEDS: HYDROmorphone HCL 2 MG/ML VL/or syr IV PRN (06:25)
--- NOTE | 2024-04-13 10:20 | DVHPN2 ---
Progress Note - Dictate Date Seen: Apr 13, 2024 Has the PT tested + for MRSA If YES, has PT been informed?: No Medical Necessity Reason Pt with a Central, PICC or Fol: No Subjective No new complaints Tolerating diet GLORIA drainage serosanguineous about 100 mL The other drainage is about 20 mL and decreasing vital signs Vital Sign Date Time Temp Pulse Resp B/P (MAP) Pulse Ox O2 Delivery O2 Flow Rate FiO2 04/13/24 09:00 97.9 101 17 108/63 (78) 95 97.9 04/12/24 20:00 Room Air* 0 21 Total Intake and Output 04/12/24 04/12/24 04/13/24 15:00 23:00 07:00 Intake Total 1250 ml 750 ml Output Total 100 ml Balance 1150 ml 750 ml medications Current Medications Medications Dose Ordered Sig/Aruna Route Start Time Stop Time Status Last Admin Dose Admin Ceftriaxone Sodium/Dextrose 50 ml @ 50 mls/hr DAILY@2100 IV 04/04/24 21:00 Cancel Metronidazole 100 ml @ 100 mls/hr Q8HR IV 04/04/24 06:00 Cancel Atorvastatin Calcium 40 mg HS PO 04/04/24 22:00 04/12/24 22:41 40 MG Aspirin 81 mg DAILY PO 04/04/24 10:00 04/12/24 09:12 81 MG Diagnostic Test (Pha) 1 strip ACHS 04/04/24 07:00 04/13/24 06:07 1 STRIP Insulin Human Regular HS SC 04/04/24 22:00 04/12/24 22:51 4 UNITS Insulin Human Regular AC SC 04/04/24 07:00 04/13/24 06:14 2 UNITS Dextrose 50 ml UD PRN IV 04/03/24 22:45 Piperacillin Sod/ Tazobactam Sod 100 ml @ 25 mls/hr Q8HR@0100,0900,1700 IV 04/04/24 01:00 04/13/24 08:36 25 MLS/HR Docusate Sodium 100 mg BIDP PO 04/05/24 10:00 04/12/24 22:41 100 MG Potassium Chloride/Dextrose/ Sod Cl 1,000 ml @ 50 mls/hr Q20H IV 04/11/24 00:45 04/13/24 00:49 50 MLS/HR Ondansetron HCl 4 mg Q6HPRN PRN IV 04/11/24 00:45 Pantoprazole Sodium 40 mg DAILY@0600 PO 04/11/24 06:00 04/13/24 06:14 40 MG Hydromorphone HCl 0.2 mg Q4HPRN PRN IV 04/11/24 01:15 Hydromorphone HCl 0.4 mg Q4HPRN PRN IV 04/11/24 01:15 04/13/24 06:25 0.4 MG Acetaminophen/ Hydrocodone Bitart 1 tab Q4HPRN PRN PO 04/11/24 01:15 04/12/24 19:12 1 TAB Vancomycin HCl 0 ml @ 0 mls/hr UD IV 04/12/24 14:45 Vancomycin HCl 250 ml @ 250 mls/hr Q12H IV 04/13/24 04:00 04/13/24 04:06 250 MLS/HR objective Examination: GENERAL:Normal, HEENT:Normal, NECK:Normal, LUNGS:Normal, CVS:Normal, ABDOMEN:Abnormal (GLORIA drains ), MSK:Normal, SKIN:Normal, NEURO:Normal laboratory and microbiology Laboratory Tests 04/13/24 05:24 04/12/24 13:26 Test 04/13/24 05:24 Range/Units Serum Glucose 163 H 74-106 mg/dL Chest x-ray negative Problems(with codes): (1) Leukocytosis (2) Hypertension (3) Abdominal pain (4) Sepsis (5) Acute cholecystitis (6) Diabetes Prognosis Plan Continue supportive care Patient was on IV antibiotics Diet as tolerated Liver enzymes are normal We will follow up patient as needed Dietary Evaluation Review Recommendations by RD: Dietary education by RD Comments: 1. Recommend timely diet advancement to Low Fat diet s/p cholecystectomy 2. May consider Ensure Clear supplements TID in the interim appropriate for current diet order to optimize nutrition (250 kcal, 8 gm pro, 0 gm fat/carton) 3. Consulted for TPN/EN: TPN is not clinically indicated at this time due to functional GI tract; should nutrition support be desired, would recommend tube feeding with peptide-based, hydrolyzed formula for improved tolerance - however, advise oral diet trial prior to initiating nutrition support measures Expected Outcomes/Goals: Diet advancement, improved nutritional status, post-op healing Plan discussed with: Patient EMILY NELSON MD Apr 13, 2024 10:20
--- NOTE | 2024-04-13 13:32 | DVHPN2 ---
Progress Note - Dictate Date Seen: Apr 13, 2024 Has the PT tested + for MRSA If YES, has PT been informed?: No Medical Necessity Reason Pt with a Central, PICC or Fol: No Subjective Patient was seen and evaluated in follow up. No overnight events. GLORIA drainage serosanguineous about 100 mL. The other drainage is about 20 mL and decreasing. Patient tolerating po intake. Telemetry reviewed. vital signs Vital Sign Date Time Temp Pulse Resp B/P (MAP) Pulse Ox O2 Delivery O2 Flow Rate FiO2 04/13/24 11:11 101 17 108/63 04/13/24 09:00 97.9 95 97.9 04/13/24 08:00 Room Air* 0 21 Total Intake and Output 04/12/24 04/12/24 04/13/24 15:00 23:00 07:00 Intake Total 1250 ml 750 ml Output Total 100 ml Balance 1150 ml 750 ml medications Current Medications Medications Dose Ordered Sig/Aruna Route Start Time Stop Time Status Last Admin Dose Admin Ceftriaxone Sodium/Dextrose 50 ml @ 50 mls/hr DAILY@2100 IV 04/04/24 21:00 Cancel Metronidazole 100 ml @ 100 mls/hr Q8HR IV 04/04/24 06:00 Cancel Atorvastatin Calcium 40 mg HS PO 04/04/24 22:00 04/12/24 22:41 40 MG Aspirin 81 mg DAILY PO 04/04/24 10:00 04/13/24 10:50 81 MG Diagnostic Test (Pha) 1 strip ACHS 04/04/24 07:00 04/13/24 11:03 1 STRIP Insulin Human Regular HS SC 04/04/24 22:00 04/12/24 22:51 4 UNITS Insulin Human Regular AC SC 04/04/24 07:00 04/13/24 11:10 3 UNITS Dextrose 50 ml UD PRN IV 04/03/24 22:45 Piperacillin Sod/ Tazobactam Sod 100 ml @ 25 mls/hr Q8HR@0100,0900,1700 IV 04/04/24 01:00 04/13/24 08:36 25 MLS/HR Docusate Sodium 100 mg BIDP PO 04/05/24 10:00 04/13/24 10:50 100 MG Potassium Chloride/Dextrose/ Sod Cl 1,000 ml @ 50 mls/hr Q20H IV 04/11/24 00:45 04/13/24 00:49 50 MLS/HR Ondansetron HCl 4 mg Q6HPRN PRN IV 04/11/24 00:45 Pantoprazole Sodium 40 mg DAILY@0600 PO 04/11/24 06:00 04/13/24 06:14 40 MG Hydromorphone HCl 0.2 mg Q4HPRN PRN IV 04/11/24 01:15 Hydromorphone HCl 0.4 mg Q4HPRN PRN IV 04/11/24 01:15 04/13/24 06:25 0.4 MG Acetaminophen/ Hydrocodone Bitart 1 tab Q4HPRN PRN PO 04/11/24 01:15 04/12/24 19:12 1 TAB Vancomycin HCl 0 ml @ 0 mls/hr UD IV 04/12/24 14:45 Vancomycin HCl 250 ml @ 250 mls/hr Q12H IV 04/13/24 04:00 04/13/24 04:06 250 MLS/HR objective GENERAL: Awake, alert, oriented. LUNGS: Clear. CARDIOVASCULAR: Heart sounds are good. ABDOMEN: Soft. RUQ TTP. laboratory and microbiology Laboratory Tests 04/13/24 05:24 04/12/24 13:26 Test 04/13/24 05:24 Range/Units Serum Glucose 163 H 74-106 mg/dL Problem List Acute RUQ abdominal pain. Acute cholecystitis. Recent history of choledocholithiasis and obstructive jaundice. Status post percutaneous transhepatic biliary drainage. Hypovolemia. Right CVA with left-sided hemiparesis. Diabetes. Hypertension. Noncompliance with medical recommendations. Assessment/Plan Continued all current supportive medical care. Aspirin, Lipitor. Dilaudid for pain management. IV antibiotics as ordered. GI prophylactics. Additional plan as per the hospital course. Dietary Evaluation Review Recommendations by RD: Dietary education by RD Comments: 1. Recommend timely diet advancement to Low Fat diet s/p cholecystectomy 2. May consider Ensure Clear supplements TID in the interim appropriate for current diet order to optimize nutrition (250 kcal, 8 gm pro, 0 gm fat/carton) 3. Consulted for TPN/EN: TPN is not clinically indicated at this time due to functional GI tract; should nutrition support be desired, would recommend tube feeding with peptide-based, hydrolyzed formula for improved tolerance - however, advise oral diet trial prior to initiating nutrition support measures Expected Outcomes/Goals: Diet advancement, improved nutritional status, post-op healing Plan discussed with: Patient ANITRA HOOD MD Apr 13, 2024 13:02
--- NOTE | 2024-04-13 19:55 | DVHPN2 ---
Progress Note - Dictate Date Seen: Apr 13, 2024 Has the PT tested + for MRSA If YES, has PT been informed?: No Medical Necessity Reason Pt with a Central, PICC or Fol: No Medical Necessity Reason Postop care IV antibiotics Pain management Subjective The patient is seen at 233 on a tele [place] He seems to a significant recovery from postsurgical pains due to laparoscopic Cholecystectomy including evacuation of biloma, drainage abscess and lysis of adhesions * Remains hemodynamically stable and afebrile on postop day 11 * Currently receives IV fluids and IV antibiotics * Receives parenteral analgesics for pain management * Tolerated soft diet well * Currently followed by Dr. Vinnie acosta from General surgery, Dr. Adriel Mcarthur cardiology and Dr. Raul Barroso infectious Disease Overnight events are reviewed through medical chart and case discussion with patient's assigned RN while making rounds on patient on the day of service vital signs Vital Sign Date Time Temp Pulse Resp B/P (MAP) Pulse Ox O2 Delivery O2 Flow Rate FiO2 04/13/24 16:30 99.6 84 19 103/60 (74) 96 99.6 04/13/24 08:00 Room Air* 0 21 Total Intake and Output 04/12/24 04/12/24 04/13/24 15:00 23:00 07:00 Intake Total 1250 ml 750 ml Output Total 100 ml Balance 1150 ml 750 ml medications Current Medications Medications Dose Ordered Sig/Aruna Route Start Time Stop Time Status Last Admin Dose Admin Ceftriaxone Sodium/Dextrose 50 ml @ 50 mls/hr DAILY@2100 IV 04/04/24 21:00 Cancel Metronidazole 100 ml @ 100 mls/hr Q8HR IV 04/04/24 06:00 Cancel Atorvastatin Calcium 40 mg HS PO 04/04/24 22:00 04/12/24 22:41 40 MG Aspirin 81 mg DAILY PO 04/04/24 10:00 04/13/24 10:50 81 MG Diagnostic Test (Pha) 1 strip ACHS 04/04/24 07:00 04/13/24 17:00 1 STRIP Insulin Human Regular HS SC 04/04/24 22:00 04/12/24 22:51 4 UNITS Insulin Human Regular AC SC 04/04/24 07:00 04/13/24 19:02 6 UNITS Dextrose 50 ml UD PRN IV 04/03/24 22:45 Piperacillin Sod/ Tazobactam Sod 100 ml @ 25 mls/hr Q8HR@0100,0900,1700 IV 04/04/24 01:00 04/13/24 19:00 25 MLS/HR Docusate Sodium 100 mg BIDP PO 04/05/24 10:00 04/13/24 10:50 100 MG Potassium Chloride/Dextrose/ Sod Cl 1,000 ml @ 50 mls/hr Q20H IV 04/11/24 00:45 04/13/24 00:49 50 MLS/HR Ondansetron HCl 4 mg Q6HPRN PRN IV 04/11/24 00:45 Pantoprazole Sodium 40 mg DAILY@0600 PO 04/11/24 06:00 04/13/24 06:14 40 MG Hydromorphone HCl 0.2 mg Q4HPRN PRN IV 04/11/24 01:15 Hydromorphone HCl 0.4 mg Q4HPRN PRN IV 04/11/24 01:15 04/13/24 06:25 0.4 MG Acetaminophen/ Hydrocodone Bitart 1 tab Q4HPRN PRN PO 04/11/24 01:15 04/12/24 19:12 1 TAB Vancomycin HCl 0 ml @ 0 mls/hr UD IV 04/12/24 14:45 Vancomycin HCl 250 ml @ 250 mls/hr Q12H IV 04/13/24 04:00 04/13/24 16:45 250 MLS/HR objective Physical Exam General appearance: Well-developed, well-nourished middle-aged male Awake alert oriented x2 Reports post surgical pains Head: Normocephalic nontraumatic Eyes: EOMI, ALIE, sclera nonicteric, conjunctive- pale ENT: No congestion, NSL bilateral symmetrical, oral mucosa wet Neck: Supple, carotid upstroke +2, trachea midline, JVD 2 cm No goiter/stridor, no lymph nodes JVD-3 cm, C spine- Full ROM No use of sternomastoid muscle Chest: Bilateral symmetrical expansions, no costochondral tenderness Lungs: clear breath sounds all over except reduced at bases CVS: PMI-1 cm medial to L MCL in fifth ICS , S1-S2 NSR no S3 GI: Abdomen soft, obese, bowel sounds hypoactive RUQ-postsurgical wound -clean minimally tender GLORIA drain-serous discharge No RUQ tenderness, no rebound tenderness No hepatosplenomegaly, no mass no hernia , : No CVA tenderness, no bladder mass palpable, genitalia-NE SKIN: Turgor dry, color pink, no rash, no icterus, No varicosity, no ulcers or wounds EXTs: No edema, color pink, no rash, no ecchymosis distal pulses +2 capillary refill <2 seconds, No open wounds JOINTS; full range of motion BACK: No apparent lumbosacral spinal muscle tenderness, LYMPH NODES: No cervical, axillary or inguinal lymph nodes Neuro: Awake alert oriented x2 speech nonfluent expressive aphasia Left-sided hemiparesis motor strength three to 4/5 Sensory-changes of DPN as before PSYCH: Affect mildly depressed-denies suicidal ideation laboratory and microbiology Laboratory Tests 04/13/24 05:24 04/12/24 13:26 Test 04/13/24 05:24 Range/Units Serum Glucose 163 H 74-106 mg/dL Problem List 1. Status post laparoscopy...................... Postoperative day 11 Evacuation of biloma, drainage of abscess and lysis of adhesions 2. Status post Acute cholecystitis Complicated by biloma, abscess and adhesions 3. Leukocytosis.................................................. Improved 4. Acute on chronic iron-deficiency anemia from a. postsurgical blood loss vs hemodilution 5. 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 Fairly well-controlled diabetes and hypertension 2' Diagnosis/Comorbidities Noncompliance with medical recommendations Doppler lower Assessment/Plan Medical decision making The patient remains hemodynamically stable afebrile on a postop day 11 of his receiving laparoscopic cholecystectomy * Noted serous drainage through the GLORIA drain-total amount 100 mL * Requested input of Dr. Vinnie Levin about discontinuation of GLORIA drain * Recommended IV hydration at 50 mL/hour * Continued on IV antibiotics-Rocephin and Flagyl * Consider tapering patient off parenteral analgesics for postsurgical pains * Start patient on oral narcotic analgesics for pain management * Continue soft diet with addition of supplements * Currently followed by Dr. Raul Barroso as Infectious Disease and Dr. Adriel Mcarthur from Cardiology Treatment Plans Continue hospital stay on telemetry Continue IV hydration at reduced rate of 50 mL/hour Continue parenteral analgesics for postsurgical pains Continue IV Rocephin and Flagyl Check CBC CMP Mag and phos level in the morning Awaiting input of Dr. Vinnie Acosta about discontinuation of GLORIA drain if indicated Reviewed input of Dr. Raul Barroso ,ID and Dr. Adriel Mcarthur Cardiology Refer to social Service for discharge planning Reviewed input of BODY RECALL INSTRUCTOR-GI consult Reconciled home meds VTE precautions Update patient The patient and and his were well informed by me about 1. Clinical impression, treatment plans, side effects of medications, course of the disease and fair prognosis 2. All patient's question/ concerns raised by patient are satisfactorily addressed by me Total time spent 45 minutes 40% of time spent interviewing the patient and physical exam 30% of time spent in gathering lab datas and imaging studies 30 % of time is spent in patient education Prognosis Fair Dietary Evaluation Review Recommendations by RD: Dietary education by RD Comments: 1. Recommend timely diet advancement to Low Fat diet s/p cholecystectomy 2. May consider Ensure Clear supplements TID in the interim appropriate for current diet order to optimize nutrition (250 kcal, 8 gm pro, 0 gm fat/carton) 3. Consulted for TPN/EN: TPN is not clinically indicated at this time due to functional GI tract; should nutrition support be desired, would recommend tube feeding with peptide-based, hydrolyzed formula for improved tolerance - however, advise oral diet trial prior to initiating nutrition support measures Expected Outcomes/Goals: Diet advancement, improved nutritional status, post-op healing Plan discussed with: Patient Total Time (mins): 45 ALLA BARROSO MD Apr 13, 2024 19:55
--- NOTE | 2024-04-13 20:38 | DVHPN2 ---
Consult Progress Note Date Seen: Apr 13, 2024 Subjective Patient reports: Other (tolerating oral diet , a bit tachycardi and about 100ccs of drain output between the 2 drains and the right has significantly more drainage ) Objective vital signs Vital Sign Date Time Temp Pulse Resp B/P (MAP) Pulse Ox O2 Delivery O2 Flow Rate FiO2 04/13/24 16:30 99.6 84 19 103/60 (74) 96 99.6 04/13/24 08:00 Room Air* 0 21 Total Intake and Output 04/12/24 04/12/24 04/13/24 15:00 23:00 07:00 Intake Total 1250 ml 750 ml Output Total 100 ml Balance 1150 ml 750 ml medications Current Medications Medications Dose Ordered Sig/Aruna Route Start Time Stop Time Status Last Admin Dose Admin Ceftriaxone Sodium/Dextrose 50 ml @ 50 mls/hr DAILY@2100 IV 04/04/24 21:00 Cancel Metronidazole 100 ml @ 100 mls/hr Q8HR IV 04/04/24 06:00 Cancel Atorvastatin Calcium 40 mg HS PO 04/04/24 22:00 04/12/24 22:41 40 MG Aspirin 81 mg DAILY PO 04/04/24 10:00 04/13/24 10:50 81 MG Diagnostic Test (Pha) 1 strip ACHS 04/04/24 07:00 04/13/24 17:00 1 STRIP Insulin Human Regular HS SC 04/04/24 22:00 04/12/24 22:51 4 UNITS Insulin Human Regular AC SC 04/04/24 07:00 04/13/24 19:02 6 UNITS Dextrose 50 ml UD PRN IV 04/03/24 22:45 Piperacillin Sod/ Tazobactam Sod 100 ml @ 25 mls/hr Q8HR@0100,0900,1700 IV 04/04/24 01:00 04/13/24 19:00 25 MLS/HR Docusate Sodium 100 mg BIDP PO 04/05/24 10:00 04/13/24 10:50 100 MG Ondansetron HCl 4 mg Q6HPRN PRN IV 04/11/24 00:45 Pantoprazole Sodium 40 mg DAILY@0600 PO 04/11/24 06:00 04/13/24 06:14 40 MG Hydromorphone HCl 0.2 mg Q4HPRN PRN IV 04/11/24 01:15 Hydromorphone HCl 0.4 mg Q4HPRN PRN IV 04/11/24 01:15 04/13/24 06:25 0.4 MG Acetaminophen/ Hydrocodone Bitart 1 tab Q4HPRN PRN PO 04/11/24 01:15 04/12/24 19:12 1 TAB Vancomycin HCl 0 ml @ 0 mls/hr UD IV 04/12/24 14:45 Vancomycin HCl 250 ml @ 250 mls/hr Q12H IV 04/13/24 04:00 04/13/24 16:45 250 MLS/HR Potassium Chloride/Dextrose/ Sod Cl 1,000 ml @ 30 mls/hr Q24H IV 04/13/24 20:00 Physical Exam: - General: NAD - Neck: Supple. No masses. - HEENT: PERRL. Normal lids and conjunctiva. Moist mucous membranes. Oropharynx without lesions, exudates, or excessive erythema. Normal appearance of the external aspects of the nose and ears. - Heart: Regular rhythm, normal rate. No murmur. No lower extremity edema. - Lungs: Normal respiratory effort. Clear to auscultation bilaterally. No wheezes. No crackles. - Abdomen: Mildly distended. Tenderness in the right upper quadrant with guarding. No masses or abdominal hernia. - MSK: No digital cyanosis. Open, non-draining foot wounds status post multiple debridements. Normal strength and tone in all 4 limbs. - Skin: Warm and dry. Rash noted. - Neuro: Alert. No facial droop or slurred speech. Extraocular movements intact. Sensation intact to soft touch in all 4 limbs. - Psych: Appropriate mood. Full affect. Oriented to person, place, time, and situation. 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 male with a past medical history of cerebrovascular accident with left hand paresis, uncontrolled diabetes mellitus, hypercholesterolemia, hypertension, paroxysmal atrial fibrillation on Eliquis, recent right MCA stroke with mid-cervical occlusion of the right internal carotid artery, and status post coronary artery bypass graft several years ago, who presents with right upper quadrant pain, obstructive jaundice, and failure to thrive. The patient has been experiencing intermittent right upper quadrant pain and obstructive jaundice. He previously underwent percutaneous transhepatic biliary drainage at [facility] several weeks ago (records pending). Currently, he exhibits poor appetite, significant weight loss, and signs of acute cholecystitis. Vital signs are notable for fever (Tmax 101.5F) and tachycardia. Physical examination reveals right upper quadrant tenderness with guarding, mildly distended abdomen, rash, and open, non-draining foot wounds status post multiple debridements. Laboratory studies show leukocytosis (WBC 11.7 K/L) and elevated creatinine (1.56 mg/dL). Imaging studies are consistent with acute cholecystitis and stercoral colitis. 04/01: whitecount is 10.4 , patients MRPC shows no intro or extra hepatic biliary ductal dilation , no MRI evidence of chololithiasis , gallbladder wall thickening suggest acute cholecystitis . abdominal ultrasound shows cholelithiasis 04/02: per operative note patient underwent a laparoscopic cholecystectomy procedure and was found fibrinous flegmon in the right upper quadrant which consisted of trezors coils momentum loops of bowel. the inflammation was exuberant and after dissecting the momentum from the fundus of the gallbladder became obious the patient had a rupture of the gallbladder which spilled a myriad of natalya stones which was then seaaled off by this momentum and contained in the biloma and a puss collection . cultures and sensitivities were obtained . the myriad little stones were aspirated and scooped up to the best of my ability and then the gallbladder was resected by circumferentially dissecting the cystic duct and cystic artery . no attempt was made to trace the cystic duct to the common duct due to the inflammation and ligament is like adhesions and concretions . area was irrigated . patient remains normal throughout the procedure but there were no complications however the choice of laparoscopic procedure was chosen due to patient having a poor overall health 04/03: patients is growing 2 gram negative rods from operative cultures , whitecount is 16 and has tachycardia to 107s 04/04: whitecount is 13/7 , operative cultures are growing pseudomonas and enterobacteria both having sensitivities to levofloxacin , passing flattis and tolerating clear liquid diet 04/05:whitecount is 13.7 04/06: whitecount is 13.7 and BP is soft with MAPS 04/07: Ct abdomen and pelvis shows surgical drain has been placed in right upper quadrant and there remains post surgical debris and small amount of free fluid in the gallbladder 04/08: appears to be clinically responding to antibiotic therapy , whitecount is 10.8 04/10: patient appears to be clinically responding to antibiotics and is improving 04/11: whitecount is 14 and chest xray shows intrathoracic process 04/12: GPC in blood cultures could be skin nikolai contaminant vs staph infection vs enterococcus infection , will need to allow to speciate 04/13: patient appears to be doing clinically well , gram positive cocci in 1/ blood cultures is likely coag negative staph suggestive of skin nikolai contaminate Plan: - Continue vancomycin - repeat blood cultures in 24 hours - follow up on speciation and sensitivities - agree with plan to acquiree blood cultures - continuing Zosyn while inpatient , when ready for discharge recommend oral Flagyl 500 mg 3x a day and oral levofloxacin 750 mg 1x a day to complete an additional 14 day course - given lack of bowel movements and low BP would repeat CT abdomen to ensure theirs no ongoing fluid collection that doesn't warrant additional drainage especially given pseudomanias cultures - aspiriation precautions - follow up with infectious disease clinic in 4 weeks - defer post op management to general surgery - follow up on gram negative rods species - if tachycardia and other signs of sepsis persists would consider getting blood cultures , broadening out gram negative coverage - keep blood sugars under 180 Isolation Precautions: Standard Plan discussed with: Other Dietary Evaluation Review Recommendations by RD: Dietary education by RD Comments: 1. Recommend timely diet advancement to Low Fat diet s/p cholecystectomy 2. May consider Ensure Clear supplements TID in the interim appropriate for current diet order to optimize nutrition (250 kcal, 8 gm pro, 0 gm fat/carton) 3. Consulted for TPN/EN: TPN is not clinically indicated at this time due to functional GI tract; should nutrition support be desired, would recommend tube feeding with peptide-based, hydrolyzed formula for improved tolerance - however, advise oral diet trial prior to initiating nutrition support measures Expected Outcomes/Goals: Diet advancement, improved nutritional status, post-op healing TRENT STRINGER MD Apr 13, 2024 20:38
[2024-04-13] MEDS: D5W/SOD CHL 0.45%/KCL 20MEQ 1,000 ML IV SCH (21:23)
--- NOTE | 2024-04-13 23:23 | DVHSR ---
APPROVED REPORT EXAM: Two-dimensional and M-mode echocardiogram with Doppler and color Doppler. Blood Pressure: 113/69 mmHg INDICATION Evaluate cardiac function RISK FACTORS Height: 5'7", Weight: 149 DIMENSIONS LVDd5.5 (3.8-5.7cm)LA (2D)2.9 (1.9-4.0cm)Aortic Root (2.0-3.7cm) LVDs4.6 (2.5-4.0cm)LA (MM) (1.9-4.0cm)Aortic Cusp Exc (1.5-2.0cm) EF (%) 35.0 (55-70%)Rt. Atrium (1.9-4.0cm)Asc. Aorta cm IVSd0.9 (0.7-1.1cm)RV (D) (1.8-2.4cm) PWd0.7 (0.7-1.1cm) Mitral Valve MitralMitral Stenosis E/A ratio0.02D MVAcm2 Aortic Valve Aortic ValveAortic Stenosis LVOT Diameter2.3 (1.8-2.4cm)Doppler AVAcm2 Other Information Quality : Technically LimitedRhythm : Technically limited study due to body habitus and pt non stop moving Conclusion DILATED ALL CARDIAC CHAMBERS MODERATELY DILATED LV MODERATE DEGREE LV GLOBAL HYPOKINESIS LV EF IS ONLY 25% NORMAL VALVES DYSKINESIS OF IVS NO EFFUSION DILATED CARDIOMYOPATHY WITH MODERATE DEGREE LV SYSTOLIC DYSFUNCTION
[2024-04-14] VITALS (8 sets, daily range): BP systolic 103–120; BP diastolic 51–71; PULSE 99–121; RESP 18–20; TEMP 98.1–99.6; O2SAT 91–99
[2024-04-14 04:19] LABS: Chloride 103 mmol/L (98-107); Potassium 4.4 mmol/L (3.5-5.1)
[2024-04-14 04:20] LABS: Anion Gap 11 (5-15); Carbon Dioxide 22 mmol/L (20-31)
[2024-04-14 04:21] LABS: Calcium 8.9 mg/dL (8.7-10.4)
[2024-04-14 04:26] LABS: BUN/Creatinine Ratio 8.8 (10.0-20.0); Blood Urea Nitrogen 14 mg/dL (9-23)
[2024-04-14 04:30] LABS: Glucose 144 mg/dL (74-106); Sodium 136 mmol/L (136-145)
[2024-04-14 07:46] LABS: Basophils # (auto) 0 10 ^3/uL (0-0.2); Basophils % (auto) 0.3 % (0.0-2.0); Eosinophils # (auto) 0.1 10 ^3/uL (0-0.8); Eosinophils % (auto) 0.5 % (0.0-7.0); Hematocrit 30.4 % (41.0-53.0); Hemoglobin 9.9 g/dL (13.5-17.5); Lymphocytes # (auto) 1.6 10 ^3/uL (0.4-5.4); Lymphocytes % (auto) 9.2 % (10.0-50.0); Mean Corpuscular Hemoglobin 29.4 pg (28.0-32.0); Mean Corpuscular Hgb Conc. 32.5 g/dL (32.0-36.0); Mean Corpuscular Volume 90.6 fL (80.0-100.0); Monocytes # (auto) 1.2 10 ^3/uL (0-1.3); Monocytes % (auto) 6.7 % (0.0-12.0); Neutrophils # (auto) 14.4 10 ^3/uL (1.6-8.6); Neutrophils % (auto) 83.3 % (37.0-80.0); Nucleated Red Blood Cells % 0.1 %; Platelet Count (auto) 381 10^3/uL (140-450); Red Blood Cells 3.35 10^6/uL (4.5-5.90); Red Cell Distribution Width 14.3 % (11.8-14.3); White Blood Cell 17.3 10^3/uL (4.4-10.8)
[2024-04-14 07:57] LABS: Alanine Aminotransferase 15 U/L (7-40); Albumin 3.6 g/dL (3.2-4.8); Alkaline Phosphatase 96 U/L (46-116); Anion Gap 10 (5-15); Aspartate Aminotransferase 21 U/L (13-40); BUN/Creatinine Ratio 7.6 (10.0-20.0); Bilirubin, Total 0.4 mg/dL (0.2-1.0); Blood Urea Nitrogen 12 mg/dL (9-23); Calcium 8.9 mg/dL (8.7-10.4); Carbon Dioxide 24 mmol/L (20-31); Chloride 102 mmol/L (98-107); Potassium 4.2 mmol/L (3.5-5.1); Total Protein 6.1 g/dL (5.7-8.2)
[2024-04-14 08:03] LABS: Glucose 147 mg/dL (74-106); Sodium 136 mmol/L (136-145)
--- NOTE | 2024-04-14 14:18 | DVHPN2 ---
Progress Note - Surgical Date Seen: Apr 14, 2024 Post op day Post op day: 12 Subjective Review of Systems: Not Done Objective Vital signs Vital Sign Date Time Temp Pulse Resp B/P (MAP) Pulse Ox O2 Delivery O2 Flow Rate FiO2 04/14/24 13:18 98.1 99 18 109/68 (82) 91 98.1 04/14/24 08:00 Room Air* 0 21 Total Intake and Output 04/13/24 04/13/24 04/14/24 15:00 23:00 07:00 Intake Total 100 ml 950 ml 300 ml Output Total 180 ml 75 ml Balance 100 ml 770 ml 225 ml Medications Current Medications Medications Dose Ordered Sig/Aruna Route Start Time Stop Time Status Last Admin Dose Admin Ceftriaxone Sodium/Dextrose 50 ml @ 50 mls/hr DAILY@2100 IV 04/04/24 21:00 Cancel Metronidazole 100 ml @ 100 mls/hr Q8HR IV 04/04/24 06:00 Cancel Atorvastatin Calcium 40 mg HS PO 04/04/24 22:00 04/13/24 22:32 40 MG Aspirin 81 mg DAILY PO 04/04/24 10:00 04/14/24 08:56 81 MG Diagnostic Test (Pha) 1 strip ACHS 04/04/24 07:00 04/14/24 11:52 1 STRIP Insulin Human Regular HS SC 04/04/24 22:00 04/12/24 22:51 4 UNITS Insulin Human Regular AC SC 04/04/24 07:00 04/14/24 11:53 3 UNITS Dextrose 50 ml UD PRN IV 04/03/24 22:45 Piperacillin Sod/ Tazobactam Sod 100 ml @ 25 mls/hr Q8HR@0100,0900,1700 IV 04/04/24 01:00 04/14/24 08:55 25 MLS/HR Docusate Sodium 100 mg BIDP PO 04/05/24 10:00 04/14/24 08:56 100 MG Ondansetron HCl 4 mg Q6HPRN PRN IV 04/11/24 00:45 Pantoprazole Sodium 40 mg DAILY@0600 PO 04/11/24 06:00 04/13/24 06:14 40 MG Hydromorphone HCl 0.2 mg Q4HPRN PRN IV 04/11/24 01:15 Hydromorphone HCl 0.4 mg Q4HPRN PRN IV 04/11/24 01:15 04/14/24 09:33 0.4 MG Acetaminophen/ Hydrocodone Bitart 1 tab Q4HPRN PRN PO 04/11/24 01:15 04/12/24 19:12 1 TAB Vancomycin HCl 0 ml @ 0 mls/hr UD IV 04/12/24 14:45 Potassium Chloride/Dextrose/ Sod Cl 1,000 ml @ 30 mls/hr Q24H IV 04/13/24 20:00 04/13/24 21:23 30 MLS/HR Laboratory Laboratory Tests 04/14/24 06:08 Test 04/14/24 06:08 Range/Units Serum Glucose 147 H 74-106 mg/dL Microbiology Date/Time Source Procedure Growth Status 04/11/24 19:20 Blood Blood Culture - Final Staphylococcus epidermidis Complete 04/02/24 17:16 Nose MRSA Screen - Final Complete 04/02/24 13:00 Gallbladder Fluid Anaerobic Culture - Final Complete 04/02/24 13:00 Aerobic Culture - Final Pseudomonas aeruginosa Enterobacter aerogenes Complete Examination: GENERAL:Normal, HEENT:Normal, NECK:Normal, LUNGS:Normal, CVS:Normal, ABDOMEN:Abnormal (GLORIA drains x 2), MSK:Normal, SKIN:Normal, NEURO:Normal Problem List/Assessment/Plan Problems: (1) S/P cholecystectomy (2) Leukocytosis Assessment and Plan no new complaints abdomen soft , non distended, appropriately tender wounds clean dry and intact GLORIA drains about 150cc serous/brown fluid Plan: continue with current treatment continue IV antibiotics pain control ok to downgrade to telemetry with a sitter Dr. Marin agrees with Plan 04/06/2024 no new complaints abdomen soft , non distended, appropriately tender wounds clean dry and intact GLORIA drains about 15cc serous/brown fluid tolerating diet Plan: continue current treatment IV antibiotics 04/08/2024 @1500 feeling better abdomen soft , non distended, non tender, passing gas, denies nausea or vomiting wounds clean dry and intact GLORIA drains one with bile/serous colored fluid 30cc second drain minimal serous fluid tolerating diet Plan: Empty drains daily IV hydration and antibiotics advance diet as tolerated Discussed with Dr. Marin 04/10/24 feeling better abdomen soft , non distended, non tender, passing gas, denies nausea or vomiting wounds clean dry and intact GLORIA drains one with bile/serous colored fluid 15cc, drainage decreased per assessment and notes second drain minimal serous fluid tolerating diet Plan: Empty drains daily IV hydration and antibiotics advance diet as tolerated Discussed with Dr. Marin S/P laparoscopic cholecystectomy patient resting in bed, GLORIA drains one with minimal serous fluid 2nd GLORIA drain 30cc bile colored fluid (total output 100cc over 24 hours) -febrile -elevated WBC Plan: Continue IV antibiotics replace Velazquez with an external catheter blood culture chest X-ray tomorrow AM GLORIA drains to Bulb suction Plan discussed with Dr. Marin and agrees 04/12/2024 s/p laparoscopic cholecystectomy no new complaints awake resting comfortably in bed abdominal wounds clean dry and francisco intact GLORIA drains one with 20cc bile fluid second drain 5 cc serous fluid , output decreasing pending labs , review of chest x ray Plan: GLORIA drains bulb suction use of incentive spirometer continue IV antibiotics labs pending blood cultures 04/14/24 patient status post laparoscopic cholecystectomy GLORIA drains 100cc bile colored fluid abdomen soft , non distended bowel movement this morning elevated WBC Plan: continue with current treatment continue with infectious disease recommendations Discussed with Dr. Marin Plan discussed with Plan discussed with: Other (Dr. Marin) Visit Coding Surgery Date of Service if different f: Apr 14, 2024 Billing Provider: YOEL MARIN MD Surgery Visit Codes: [id number] INP/OBS CARE(HIGH) LAMAR CHOE DNP Apr 14, 2024 14:18
--- NOTE | 2024-04-14 15:13 | DVHPN2 ---
Progress Note - Dictate Date Seen: Apr 14, 2024 Has the PT tested + for MRSA If YES, has PT been informed?: No Medical Necessity Reason Pt with a Central, PICC or Fol: No Medical Necessity Reason Postop care IV antibiotics IV hydration for acute kidney injury Subjective The patient is seen at [address] [place] [address] [place] He seems to a significant recovery from postsurgical pains due to laparoscopic Cholecystectomy including evacuation of biloma, drainage abscess and lysis of adhesions * Remains hemodynamically stable and afebrile on postop day 11 to 12 * Currently receives IV fluids and IV antibiotics * Labs are remarkable for acute kidney injury * Continued patient on IV hydration * Tolerated soft diet well * Noted input of Mr. Stan HUSSEIN associate of Dr. Avery from General surgery * Currently followed by Dr. Adriel Mcarthur cardiology and Dr. Raul Barroso infectious Disease Overnight events are reviewed through medical chart and case discussion with patient's assigned RN while making rounds on patient on the day of service vital signs Vital Sign Date Time Temp Pulse Resp B/P (MAP) Pulse Ox O2 Delivery O2 Flow Rate FiO2 04/14/24 13:18 98.1 99 18 109/68 (82) 91 98.1 04/14/24 08:00 Room Air* 0 21 Total Intake and Output 04/13/24 04/13/24 04/14/24 15:00 23:00 07:00 Intake Total 100 ml 950 ml 300 ml Output Total 180 ml 75 ml Balance 100 ml 770 ml 225 ml medications Current Medications Medications Dose Ordered Sig/Aruna Route Start Time Stop Time Status Last Admin Dose Admin Ceftriaxone Sodium/Dextrose 50 ml @ 50 mls/hr DAILY@2100 IV 04/04/24 21:00 Cancel Metronidazole 100 ml @ 100 mls/hr Q8HR IV 04/04/24 06:00 Cancel Atorvastatin Calcium 40 mg HS PO 04/04/24 22:00 04/13/24 22:32 40 MG Aspirin 81 mg DAILY PO 04/04/24 10:00 04/14/24 08:56 81 MG Diagnostic Test (Pha) 1 strip ACHS 04/04/24 07:00 04/14/24 11:52 1 STRIP Insulin Human Regular HS SC 04/04/24 22:00 04/12/24 22:51 4 UNITS Insulin Human Regular AC SC 04/04/24 07:00 04/14/24 11:53 3 UNITS Dextrose 50 ml UD PRN IV 04/03/24 22:45 Piperacillin Sod/ Tazobactam Sod 100 ml @ 25 mls/hr Q8HR@0100,0900,1700 IV 04/04/24 01:00 04/14/24 08:55 25 MLS/HR Docusate Sodium 100 mg BIDP PO 04/05/24 10:00 04/14/24 08:56 100 MG Ondansetron HCl 4 mg Q6HPRN PRN IV 04/11/24 00:45 Pantoprazole Sodium 40 mg DAILY@0600 PO 04/11/24 06:00 04/13/24 06:14 40 MG Hydromorphone HCl 0.2 mg Q4HPRN PRN IV 04/11/24 01:15 Hydromorphone HCl 0.4 mg Q4HPRN PRN IV 04/11/24 01:15 04/14/24 09:33 0.4 MG Acetaminophen/ Hydrocodone Bitart 1 tab Q4HPRN PRN PO 04/11/24 01:15 04/12/24 19:12 1 TAB Vancomycin HCl 0 ml @ 0 mls/hr UD IV 04/12/24 14:45 Potassium Chloride/Dextrose/ Sod Cl 1,000 ml @ 30 mls/hr Q24H IV 04/13/24 20:00 04/13/24 21:23 30 MLS/HR objective Physical Exam General appearance: Well-developed, well-nourished middle-aged male Awake alert oriented x2 Reports post surgical pains Head: Normocephalic nontraumatic Eyes: EOMI, ALIE, sclera nonicteric, conjunctive- pale ENT: No congestion, NSL bilateral symmetrical, oral mucosa wet Neck: Supple, carotid upstroke +2, trachea midline, JVD 2 cm No goiter/stridor, no lymph nodes JVD-3 cm, C spine- Full ROM No use of sternomastoid muscle Chest: Bilateral symmetrical expansions, no costochondral tenderness Lungs: clear breath sounds all over except reduced at bases CVS: PMI-1 cm medial to L MCL in fifth ICS , S1-S2 NSR no S3 GI: Abdomen soft, obese, bowel sounds hypoactive RUQ-postsurgical wound -clean minimally tender GLORIA drain-serous discharge No RUQ tenderness, no rebound tenderness No hepatosplenomegaly, no mass no hernia , : No CVA tenderness, no bladder mass palpable, genitalia-NE SKIN: Turgor dry, color pink, no rash, no icterus, No varicosity, no ulcers or wounds EXTs: No edema, color pink, no rash, no ecchymosis distal pulses +2 capillary refill <2 seconds, No open wounds JOINTS; full range of motion BACK: No apparent lumbosacral spinal muscle tenderness, LYMPH NODES: No cervical, axillary or inguinal lymph nodes Neuro: Awake alert oriented x2 speech nonfluent expressive aphasia Left-sided hemiparesis motor strength three to 4/5 Sensory-changes of DPN as before PSYCH: Affect mildly depressed-denies suicidal ideation laboratory and microbiology Laboratory Tests 04/14/24 06:08 Test 04/14/24 06:08 Range/Units Serum Glucose 147 H 74-106 mg/dL Problem List 1. Status post laparoscopy...................... Postoperative day 12 Evacuation of biloma, drainage of abscess and lysis of adhesions 2. Status post Acute cholecystitis Complicated by biloma, abscess and adhesions 3. Acute kidney injury from a. Intravascular volume depletion 4. Acute on chronic iron-deficiency anemia from a. postsurgical blood loss vs hemodilution 5. 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 Fairly well-controlled diabetes and hypertension 2' Diagnosis/Comorbidities Noncompliance with medical recommendations Doppler lower Assessment/Plan Medical decision making The patient remains hemodynamically stable afebrile on a postop day 12 of his receiving laparoscopic cholecystectomy * Noted serous drainage through the GLORIA drain-total amount 75 mL * Noted input of Mr. Pierce, JET PILOT associate of Dr. Vinnie Rosales * Recommended IV hydration to help improving state of acute kidney injury * Continued on IV antibiotics-Rocephin and Flagyl * Consider tapering patient off parenteral analgesics for postsurgical pains * Continue patient on oral narcotic analgesics for pain management * Continue soft diet with addition of supplements * Currently followed by Dr. Raul Barroso as Infectious Disease and Dr. Adriel Mcarthur from Cardiology Treatment Plans Continue hospital stay on telemetry Continue IV hydration Consider ultrasound of renals Consider nephrology consult Continue parenteral analgesics for postsurgical pains Continue IV Rocephin and Flagyl Check CBC CMP Mag and phos level in the morning Reviewed input of JOVITA León associate of Dr. Vinnie Marin Reviewed input of Dr. Raul Barroso ,EZE and Dr. Adriel Mcarthur Cardiology Refer to social Service for placement to local SNF Reviewed input of JET PILOT-GI consult Reconciled home meds VTE precautions Update patient The patient and and his were well informed by me about 1. Clinical impression, treatment plans, side effects of medications, course of the disease and fair prognosis 2. All patient's question/ concerns raised by patient are satisfactorily addressed by me Total time spent 45 minutes 40% of time spent interviewing the patient and physical exam 30% of time spent in gathering lab datas and imaging studies 30 % of time is spent in patient education Prognosis fair Dietary Evaluation Review Recommendations by RD: Dietary education by RD Comments: 1. Recommend timely diet advancement to Low Fat diet s/p cholecystectomy 2. May consider Ensure Clear supplements TID in the interim appropriate for current diet order to optimize nutrition (250 kcal, 8 gm pro, 0 gm fat/carton) 3. Consulted for TPN/EN: TPN is not clinically indicated at this time due to functional GI tract; should nutrition support be desired, would recommend tube feeding with peptide-based, hydrolyzed formula for improved tolerance - however, advise oral diet trial prior to initiating nutrition support measures Expected Outcomes/Goals: Diet advancement, improved nutritional status, post-op healing Plan discussed with: Patient Total Time (mins): 45 ALLA BARROSO MD Apr 14, 2024 15:13
[2024-04-14] MEDS ORDERED: D5W/SOD CHL 0.45%/KCL 20MEQ 1,000 ML IV SCH (15:30)
--- NOTE | 2024-04-14 16:06 | DVH ---
RENAL ULTRASOUND CLINICAL HISTORY: CARMEL TECHNIQUE: Multiple ultrasound images of the kidneys and bladder were obtained. COMPARISON: CT abdomen and pelvis 04/07/2024 FINDINGS: The right kidney measures 11.8 cm in length. The left kidney measures 9.3 cm. The kidneys demonstrate appropriate echotexture without evidence of a discrete renal lesion, nephrolithiasis or hydronephros is. Bladder prevoid volume measures 157 cc. There is dependently layering debris along the posterior wa ll of the bladder. IMPRESSION: 1. Unremarkable sonographic appearance of the kidneys. 2. Dependently layering debris along the posterior wall of the bladder. HS:Y
[2024-04-14] MEDS: D5W/SOD CHL 0.45% 1,000 ML IV SCH (17:54)
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
--- NOTE | 2024-04-14 22:51 | DVHPN2 ---
Progress Note - Dictate Date Seen: Apr 14, 2024 Has the PT tested + for MRSA If YES, has PT been informed?: No Medical Necessity Reason Pt with a Central, PICC or Fol: No Subjective Patient was seen and evaluated in follow up. Drain 1 has an unmeasurable amount of serous fluid. Drain 2 has approx 100 mL brown fluid. Patient being evaluated by Neurologist. WBC 17.3, HGB 9.9, HCT 30.4, NURSING HOME ASSISTANT 1.58. Telemetry reviewed. vital signs Vital Sign Date Time Temp Pulse Resp B/P (MAP) Pulse Ox O2 Delivery O2 Flow Rate FiO2 04/14/24 17:12 98.6 100 18 103/51 (68) 99 98.6 04/14/24 08:00 Room Air* 0 21 Total Intake and Output 04/13/24 04/13/24 04/14/24 15:00 23:00 07:00 Intake Total 100 ml 950 ml 300 ml Output Total 180 ml 75 ml Balance 100 ml 770 ml 225 ml medications Current Medications Medications Dose Ordered Sig/Aruna Route Start Time Stop Time Status Last Admin Dose Admin Ceftriaxone Sodium/Dextrose 50 ml @ 50 mls/hr DAILY@2100 IV 04/04/24 21:00 Cancel Metronidazole 100 ml @ 100 mls/hr Q8HR IV 04/04/24 06:00 Cancel Atorvastatin Calcium 40 mg HS PO 04/04/24 22:00 04/13/24 22:32 40 MG Aspirin 81 mg DAILY PO 04/04/24 10:00 04/14/24 08:56 81 MG Diagnostic Test (Pha) 1 strip ACHS 04/04/24 07:00 04/14/24 17:54 1 STRIP Insulin Human Regular HS SC 04/04/24 22:00 04/12/24 22:51 4 UNITS Insulin Human Regular AC SC 04/04/24 07:00 04/14/24 17:55 2 UNITS Dextrose 50 ml UD PRN IV 04/03/24 22:45 Piperacillin Sod/ Tazobactam Sod 100 ml @ 25 mls/hr Q8HR@0100,0900,1700 IV 04/04/24 01:00 04/14/24 17:54 25 MLS/HR Docusate Sodium 100 mg BIDP PO 04/05/24 10:00 04/14/24 08:56 100 MG Ondansetron HCl 4 mg Q6HPRN PRN IV 04/11/24 00:45 Pantoprazole Sodium 40 mg DAILY@0600 PO 04/11/24 06:00 04/13/24 06:14 40 MG Hydromorphone HCl 0.2 mg Q4HPRN PRN IV 04/11/24 01:15 Hydromorphone HCl 0.4 mg Q4HPRN PRN IV 04/11/24 01:15 04/14/24 09:33 0.4 MG Acetaminophen/ Hydrocodone Bitart 1 tab Q4HPRN PRN PO 04/11/24 01:15 04/12/24 19:12 1 TAB Vancomycin HCl 0 ml @ 0 mls/hr UD IV 04/12/24 14:45 Dextrose/Sodium Chloride 1,000 ml @ 100 mls/hr Q10H IV 04/14/24 17:45 04/14/24 17:54 100 MLS/HR objective GENERAL: Awake, alert, oriented. LUNGS: Clear. CARDIOVASCULAR: Heart sounds are good. ABDOMEN: Soft. RUQ TTP. laboratory and microbiology Laboratory Tests 04/14/24 06:08 Test 04/14/24 06:08 Range/Units Serum Glucose 147 H 74-106 mg/dL Problem List Acute RUQ abdominal pain. Acute cholecystitis. Recent history of choledocholithiasis and obstructive jaundice. Status post percutaneous transhepatic biliary drainage. Hypovolemia. Right CVA with left-sided hemiparesis. Diabetes. Hypertension. Noncompliance with medical recommendations. Assessment/Plan Continued all current supportive medical care. Aspirin, Lipitor. Dilaudid for pain management. IV antibiotics as ordered. GI prophylactics. Additional plan as per the hospital course. Dietary Evaluation Review Recommendations by RD: Dietary education by RD Comments: 1. Recommend timely diet advancement to Low Fat diet s/p cholecystectomy 2. May consider Ensure Clear supplements TID in the interim appropriate for current diet order to optimize nutrition (250 kcal, 8 gm pro, 0 gm fat/carton) 3. Consulted for TPN/EN: TPN is not clinically indicated at this time due to functional GI tract; should nutrition support be desired, would recommend tube feeding with peptide-based, hydrolyzed formula for improved tolerance - however, advise oral diet trial prior to initiating nutrition support measures Expected Outcomes/Goals: Diet advancement, improved nutritional status, post-op healing Plan discussed with: Patient ANITRA HOOD MD Apr 14, 2024 22:51
[2024-04-15] VITALS (8 sets, daily range): BP systolic 107–133; BP diastolic 57–79; PULSE 94–121; RESP 18–20; TEMP 92.2–99; O2SAT 94–99
[2024-04-15 07:05] LABS: Basophils # (auto) 0.1 10 ^3/uL (0-0.2); Basophils % (auto) 0.3 % (0.0-2.0); Eosinophils # (auto) 0.1 10 ^3/uL (0-0.8); Eosinophils % (auto) 0.6 % (0.0-7.0); Hemoglobin 9.5 g/dL (13.5-17.5); Lymphocytes # (auto) 1.7 10 ^3/uL (0.4-5.4); Lymphocytes % (auto) 10.6 % (10.0-50.0); Mean Corpuscular Hemoglobin 29.2 pg (28.0-32.0); Mean Corpuscular Hgb Conc. 32.8 g/dL (32.0-36.0); Mean Corpuscular Volume 89.1 fL (80.0-100.0); Monocytes # (auto) 1.1 10 ^3/uL (0-1.3); Monocytes % (auto) 6.7 % (0.0-12.0); Neutrophils # (auto) 13.4 10 ^3/uL (1.6-8.6); Neutrophils % (auto) 81.8 % (37.0-80.0); Nucleated Red Blood Cells % 0.2 %; Platelet Count (auto) 374 10^3/uL (140-450); Red Blood Cells 3.25 10^6/uL (4.5-5.90); Red Cell Distribution Width 14.1 % (11.8-14.3); White Blood Cell 16.4 10^3/uL (4.4-10.8)
--- NOTE | 2024-04-15 11:31 | DVH ---
EXAMINATION: MRI BRAIN HEAD WO CONTRAST INDICATION: R/O STROKE COMPARISON: None TECHNIQUE: Multiplanar, multisequence magnetic resonance imaging of the brain was performed without t he use of intravenous contrast. FINDINGS: There are multiple scattered small and patchy foci of restricted diffusion involving the right fronta l, parietal, temporal and occipital lobes. There is patchy restricted diffusion in the splenium of th e corpus callosum and along the right centrum semiovale. The findings are consistent with multiple ar eas of acute to subacute infarcts. There is no evidence of acute hemorrhage. There is no significant edema or mass effect. There are small chronic cortical infarcts in the right parietal lobe and in the right occipital lobe. There are mild chronic microvascular white matter ischemic changes. There is no hydrocephalus or extra-axial fluid collection. The visualized intracranial vasculature de monstrates appropriate flow-voids. The sagittal midline structures appear unremarkable. The craniocer vical junction is within normal limits. The calvarium demonstrates normal marrow signal. The paranasa l sinuses and mastoid air cells are clear. IMPRESSION: 1. There are multiple scattered small and patchy foci of restricted diffusion involving the right fro ntal, parietal, temporal and occipital lobes consistent with multiple areas of acute to subacute infa rcts. There is no evidence of acute hemorrhage. There is no significant edema or mass effect. 2. There are small chronic cortical infarcts in the right parietal and occipital lobes. 3. Mild chronic microvascular white matter ischemic changes. HS:Y
--- NOTE | 2024-04-15 19:52 | DVHPN2 ---
Progress Note - Dictate Date Seen: Apr 15, 2024 Has the PT tested + for MRSA If YES, has PT been informed?: No Medical Necessity Reason Pt with a Central, PICC or Fol: No Subjective Patient was seen and evaluated in follow up. No overnight events. Patient had a john boot placed on left foot. GLORIA Drain #1: output 3ccs. GLORIA Drain#2: Output 80ccs. WBC 16.4, HGB 9.5, HCT 29, Urologic Surgeon 1.79. Telemetry reviewed. vital signs Vital Sign Date Time Temp Pulse Resp B/P (MAP) Pulse Ox O2 Delivery O2 Flow Rate FiO2 04/15/24 17:00 97.8 94 18 133/76 (95) 94 97.8 04/15/24 08:00 Room Air* 0 21 Total Intake and Output 04/14/24 04/14/24 04/15/24 15:00 23:00 07:00 Intake Total 100 ml 500 ml 800 ml Output Total 100 ml 87 ml Balance 100 ml 400 ml 713 ml medications Current Medications Medications Dose Ordered Sig/Aruna Route Start Time Stop Time Status Last Admin Dose Admin Ceftriaxone Sodium/Dextrose 50 ml @ 50 mls/hr DAILY@2100 IV 04/04/24 21:00 Cancel Metronidazole 100 ml @ 100 mls/hr Q8HR IV 04/04/24 06:00 Cancel Atorvastatin Calcium 40 mg HS PO 04/04/24 22:00 04/14/24 22:27 40 MG Aspirin 81 mg DAILY PO 04/04/24 10:00 04/15/24 09:17 81 MG Diagnostic Test (Pha) 1 strip ACHS 04/04/24 07:00 04/15/24 17:00 1 STRIP Insulin Human Regular HS SC 04/04/24 22:00 04/14/24 22:36 4 UNITS Insulin Human Regular AC SC 04/04/24 07:00 04/15/24 18:25 2 UNITS Dextrose 50 ml UD PRN IV 04/03/24 22:45 Piperacillin Sod/ Tazobactam Sod 100 ml @ 25 mls/hr Q8HR@0100,0900,1700 IV 04/04/24 01:00 04/15/24 18:23 25 MLS/HR Docusate Sodium 100 mg BIDP PO 04/05/24 10:00 04/15/24 09:18 100 MG Ondansetron HCl 4 mg Q6HPRN PRN IV 04/11/24 00:45 Pantoprazole Sodium 40 mg DAILY@0600 PO 04/11/24 06:00 04/15/24 06:07 40 MG Hydromorphone HCl 0.2 mg Q4HPRN PRN IV 04/11/24 01:15 Hydromorphone HCl 0.4 mg Q4HPRN PRN IV 04/11/24 01:15 04/15/24 09:17 0.4 MG Acetaminophen/ Hydrocodone Bitart 1 tab Q4HPRN PRN PO 04/11/24 01:15 04/12/24 19:12 1 TAB Vancomycin HCl 0 ml @ 0 mls/hr UD IV 04/12/24 14:45 Cancel Dextrose/Sodium Chloride 1,000 ml @ 100 mls/hr Q10H IV 04/14/24 17:45 04/15/24 14:01 100 MLS/HR objective GENERAL: Awake, alert, oriented. LUNGS: Clear. CARDIOVASCULAR: Heart sounds are good. ABDOMEN: Soft. RUQ TTP. laboratory and microbiology Laboratory Tests 04/15/24 05:34 04/14/24 06:08 Test 04/14/24 06:08 Range/Units Serum Glucose 147 H 74-106 mg/dL Problem List Acute RUQ abdominal pain. Acute cholecystitis. Recent history of choledocholithiasis and obstructive jaundice. Status post percutaneous transhepatic biliary drainage. Hypovolemia. Right CVA with left-sided hemiparesis. Diabetes. Hypertension. Noncompliance with medical recommendations. Assessment/Plan Continued all current supportive medical care. Dilaudid and [place] for pain management. Aspirin, Lipitor. IV antibiotics as ordered. GI prophylactics. Additional plan as per the hospital course. Dietary Evaluation Review Recommendations by RD: Dietary education by RD Comments: 1. Recommend timely diet advancement to Low Fat diet s/p cholecystectomy 2. May consider Ensure Clear supplements TID in the interim appropriate for current diet order to optimize nutrition (250 kcal, 8 gm pro, 0 gm fat/carton) 3. Consulted for TPN/EN: TPN is not clinically indicated at this time due to functional GI tract; should nutrition support be desired, would recommend tube feeding with peptide-based, hydrolyzed formula for improved tolerance - however, advise oral diet trial prior to initiating nutrition support measures Expected Outcomes/Goals: Diet advancement, improved nutritional status, post-op healing Plan discussed with: Patient ANITRA HOOD MD Apr 15, 2024 19:52
--- NOTE | 2024-04-15 21:42 | DVHPN2 ---
Consult Progress Note Date Seen: Apr 14, 2024 Subjective Patient reports: Other (underwent swallow evaluation , tolerating water and applesauce without signs of aspiration ) Objective vital signs Vital Sign Date Time Temp Pulse Resp B/P (MAP) Pulse Ox O2 Delivery O2 Flow Rate FiO2 04/15/24 17:00 97.8 94 18 133/76 (95) 94 97.8 04/15/24 08:00 Room Air* 0 21 Total Intake and Output 04/14/24 04/14/24 04/15/24 15:00 23:00 07:00 Intake Total 100 ml 500 ml 800 ml Output Total 100 ml 87 ml Balance 100 ml 400 ml 713 ml medications Current Medications Medications Dose Ordered Sig/Aruna Route Start Time Stop Time Status Last Admin Dose Admin Ceftriaxone Sodium/Dextrose 50 ml @ 50 mls/hr DAILY@2100 IV 04/04/24 21:00 Cancel Metronidazole 100 ml @ 100 mls/hr Q8HR IV 04/04/24 06:00 Cancel Atorvastatin Calcium 40 mg HS PO 04/04/24 22:00 04/14/24 22:27 40 MG Aspirin 81 mg DAILY PO 04/04/24 10:00 04/15/24 09:17 81 MG Diagnostic Test (Pha) 1 strip ACHS 04/04/24 07:00 04/15/24 17:00 1 STRIP Insulin Human Regular HS SC 04/04/24 22:00 04/14/24 22:36 4 UNITS Insulin Human Regular AC SC 04/04/24 07:00 04/15/24 18:25 2 UNITS Dextrose 50 ml UD PRN IV 04/03/24 22:45 Piperacillin Sod/ Tazobactam Sod 100 ml @ 25 mls/hr Q8HR@0100,0900,1700 IV 04/04/24 01:00 04/15/24 18:23 25 MLS/HR Docusate Sodium 100 mg BIDP PO 04/05/24 10:00 04/15/24 09:18 100 MG Ondansetron HCl 4 mg Q6HPRN PRN IV 04/11/24 00:45 Pantoprazole Sodium 40 mg DAILY@0600 PO 04/11/24 06:00 04/15/24 06:07 40 MG Hydromorphone HCl 0.2 mg Q4HPRN PRN IV 04/11/24 01:15 Hydromorphone HCl 0.4 mg Q4HPRN PRN IV 04/11/24 01:15 04/15/24 09:17 0.4 MG Acetaminophen/ Hydrocodone Bitart 1 tab Q4HPRN PRN PO 04/11/24 01:15 04/12/24 19:12 1 TAB Vancomycin HCl 0 ml @ 0 mls/hr UD IV 04/12/24 14:45 Cancel Dextrose/Sodium Chloride 1,000 ml @ 100 mls/hr Q10H IV 04/14/24 17:45 04/15/24 14:01 100 MLS/HR Physical Exam: - General: NAD - Neck: Supple. No masses. - HEENT: PERRL. Normal lids and conjunctiva. Moist mucous membranes. Oropharynx without lesions, exudates, or excessive erythema. Normal appearance of the external aspects of the nose and ears. - Heart: Regular rhythm, normal rate. No murmur. No lower extremity edema. - Lungs: Normal respiratory effort. Clear to auscultation bilaterally. No wheezes. No crackles. - Abdomen: Mildly distended. Tenderness in the right upper quadrant with guarding. No masses or abdominal hernia. - MSK: No digital cyanosis. Open, non-draining foot wounds status post multiple debridements. Normal strength and tone in all 4 limbs. - Skin: Warm and dry. Rash noted. - Neuro: Alert. No facial droop or slurred speech. Extraocular movements intact. Sensation intact to soft touch in all 4 limbs. - Psych: Appropriate mood. Full affect. Oriented to person, place, time, and situation. laboratory and microbiology Laboratory Tests 04/15/24 05:34 04/14/24 06:08 Test 04/14/24 06:08 Range/Units Serum Glucose 147 H 74-106 mg/dL Problem List/Assessment/Plan Problems(with codes): (1) Febrile (2) Leukocytosis (3) Hypertension (4) Hypotension (5) Abdominal pain (6) Sepsis (7) Diabetes (8) Acute cholecystitis Problem List/Assessment/Plan ID Problem List: - Cerebrovascular accident with left hand paresis - Bed confined - Uncontrolled diabetes mellitus - Hypercholesterolemia - Hypertension - Paroxysmal atrial fibrillation - Cholelithiasis - Cholecystitis - Recent right MCA stroke with mid-cervical occlusion of right ICA - Necrotic infections of bilateral feet, status post multiple debridements Assessment This is a 68 y.o. male with a past medical history of cerebrovascular accident with left hand paresis, uncontrolled diabetes mellitus, hypercholesterolemia, hypertension, paroxysmal atrial fibrillation on Eliquis, recent right MCA stroke with mid-cervical occlusion of the right internal carotid artery, and status post coronary artery bypass graft several years ago, who presents with right upper quadrant pain, obstructive jaundice, and failure to thrive. The patient has been experiencing intermittent right upper quadrant pain and obstructive jaundice. He previously underwent percutaneous transhepatic biliary drainage at [facility] several weeks ago (records pending). Currently, he exhibits poor appetite, significant weight loss, and signs of acute cholecystitis. Vital signs are notable for fever (Tmax 101.5F) and tachycardia. Physical examination reveals right upper quadrant tenderness with guarding, mildly distended abdomen, rash, and open, non-draining foot wounds status post multiple debridements. Laboratory studies show leukocytosis (WBC 11.7 K/L) and elevated creatinine (1.56 mg/dL). Imaging studies are consistent with acute cholecystitis and stercoral colitis. 04/01: whitecount is 10.4 , patients MRPC shows no intro or extra hepatic biliary ductal dilation , no MRI evidence of chololithiasis , gallbladder wall thickening suggest acute cholecystitis . abdominal ultrasound shows cholelithiasis 04/02: per operative note patient underwent a laparoscopic cholecystectomy procedure and was found fibrinous flegmon in the right upper quadrant which consisted of trezors coils momentum loops of bowel. the inflammation was exuberant and after dissecting the momentum from the fundus of the gallbladder became obious the patient had a rupture of the gallbladder which spilled a myriad of natalya stones which was then seaaled off by this momentum and contained in the biloma and a puss collection . cultures and sensitivities were obtained . the myriad little stones were aspirated and scooped up to the best of my ability and then the gallbladder was resected by circumferentially dissecting the cystic duct and cystic artery . no attempt was made to trace the cystic duct to the common duct due to the inflammation and ligament is like adhesions and concretions . area was irrigated . patient remains normal throughout the procedure but there were no complications however the choice of laparoscopic procedure was chosen due to patient having a poor overall health 2: patients is growing 2 gram negative rods from operative cultures , whitecount is 16 and has tachycardia to 107s 04/04: whitecount is 13/7 , operative cultures are growing pseudomonas and enterobacteria both having sensitivities to levofloxacin , passing flattis and tolerating clear liquid diet 04/05:whitecount is 13.7 04/06: whitecount is 13.7 and BP is soft with MAPS 04/07: Ct abdomen and pelvis shows surgical drain has been placed in right upper quadrant and there remains post surgical debris and small amount of free fluid in the gallbladder 04/08: appears to be clinically responding to antibiotic therapy , whitecount is 10.8 04/10: patient appears to be clinically responding to antibiotics and is improving 04/11: whitecount is 14 and chest xray shows intrathoracic process 04/12: GPC in blood cultures could be skin nikolai contaminant vs staph infection vs enterococcus infection , will need to allow to speciate 04/13: patient appears to be doing clinically well , gram positive cocci in 1 blood cultures is likely coag negative staph suggestive of skin nikolai contaminate 04/14: growing staph epidermitis in blood likely skin nikolai contaminant , vancomycin troth is elevated at 29.5 Plan: - Hold vancomycin in setting of elevated troth - repeat blood cultures in 24 hours - follow up on speciation and sensitivities - agree with plan to acquiree blood cultures - continuing Zosyn while inpatient , when ready for discharge recommend oral Flagyl 500 mg 3x a day and oral levofloxacin 750 mg 1x a day to complete an additional 14 day course - given lack of bowel movements and low BP would repeat CT abdomen to ensure theirs no ongoing fluid collection that doesn't warrant additional drainage especially given pseudomanias cultures - aspiriation precautions - follow up with infectious disease clinic in 4 weeks - defer post op management to general surgery - follow up on gram negative rods species - if tachycardia and other signs of sepsis persists would consider getting blood cultures , broadening out gram negative coverage - keep blood sugars under 180 Isolation Precautions: Standard Plan discussed with: Other Dietary Evaluation Review Recommendations by RD: Dietary education by RD Comments: 1. Recommend timely diet advancement to Low Fat diet s/p cholecystectomy 2. May consider Ensure Clear supplements TID in the interim appropriate for current diet order to optimize nutrition (250 kcal, 8 gm pro, 0 gm fat/carton) 3. Consulted for TPN/EN: TPN is not clinically indicated at this time due to functional GI tract; should nutrition support be desired, would recommend tube feeding with peptide-based, hydrolyzed formula for improved tolerance - however, advise oral diet trial prior to initiating nutrition support measures Expected Outcomes/Goals: Diet advancement, improved nutritional status, post-op healing TRENT STRINGER MD Apr 15, 2024 21:42
--- NOTE | 2024-04-15 21:47 | DVHPN2 ---
Consult Progress Note Date Seen: Apr 15, 2024 Subjective Patient reports: Other (contineus to have facial droop of left side , GLORIA drain 80ccs from 1 drain and 3ccs from other drain both bloody , tolerating diet ) Objective vital signs Vital Sign Date Time Temp Pulse Resp B/P (MAP) Pulse Ox O2 Delivery O2 Flow Rate FiO2 04/15/24 17:00 97.8 94 18 133/76 (95) 94 97.8 04/15/24 08:00 Room Air* 0 21 Total Intake and Output 04/14/24 04/14/24 04/15/24 15:00 23:00 07:00 Intake Total 100 ml 500 ml 800 ml Output Total 100 ml 87 ml Balance 100 ml 400 ml 713 ml medications Current Medications Medications Dose Ordered Sig/Aruna Route Start Time Stop Time Status Last Admin Dose Admin Ceftriaxone Sodium/Dextrose 50 ml @ 50 mls/hr DAILY@2100 IV 04/04/24 21:00 Cancel Metronidazole 100 ml @ 100 mls/hr Q8HR IV 04/04/24 06:00 Cancel Atorvastatin Calcium 40 mg HS PO 04/04/24 22:00 04/14/24 22:27 40 MG Aspirin 81 mg DAILY PO 04/04/24 10:00 04/15/24 09:17 81 MG Diagnostic Test (Pha) 1 strip ACHS 04/04/24 07:00 04/15/24 17:00 1 STRIP Insulin Human Regular HS SC 04/04/24 22:00 04/14/24 22:36 4 UNITS Insulin Human Regular AC SC 04/04/24 07:00 04/15/24 18:25 2 UNITS Dextrose 50 ml UD PRN IV 04/03/24 22:45 Piperacillin Sod/ Tazobactam Sod 100 ml @ 25 mls/hr Q8HR@0100,0900,1700 IV 04/04/24 01:00 04/15/24 18:23 25 MLS/HR Docusate Sodium 100 mg BIDP PO 04/05/24 10:00 04/15/24 09:18 100 MG Ondansetron HCl 4 mg Q6HPRN PRN IV 04/11/24 00:45 Pantoprazole Sodium 40 mg DAILY@0600 PO 04/11/24 06:00 04/15/24 06:07 40 MG Hydromorphone HCl 0.2 mg Q4HPRN PRN IV 04/11/24 01:15 Hydromorphone HCl 0.4 mg Q4HPRN PRN IV 04/11/24 01:15 04/15/24 09:17 0.4 MG Acetaminophen/ Hydrocodone Bitart 1 tab Q4HPRN PRN PO 04/11/24 01:15 04/12/24 19:12 1 TAB Vancomycin HCl 0 ml @ 0 mls/hr UD IV 04/12/24 14:45 Cancel Dextrose/Sodium Chloride 1,000 ml @ 100 mls/hr Q10H IV 04/14/24 17:45 04/15/24 14:01 100 MLS/HR Physical Exam: - General: NAD - Neck: Supple. No masses. - HEENT: PERRL. Normal lids and conjunctiva. Moist mucous membranes. Oropharynx without lesions, exudates, or excessive erythema. Normal appearance of the external aspects of the nose and ears. - Heart: Regular rhythm, normal rate. No murmur. No lower extremity edema. - Lungs: Normal respiratory effort. Clear to auscultation bilaterally. No wheezes. No crackles. - Abdomen: Mildly distended. Tenderness in the right upper quadrant with guarding. No masses or abdominal hernia. - MSK: No digital cyanosis. Open, non-draining foot wounds status post multiple debridements. Normal strength and tone in all 4 limbs. - Skin: Warm and dry. Rash noted. - Neuro: Alert. No facial droop or slurred speech. Extraocular movements intact. Sensation intact to soft touch in all 4 limbs. - Psych: Appropriate mood. Full affect. Oriented to person, place, time, and situation. laboratory and microbiology Laboratory Tests 04/15/24 05:34 04/14/24 06:08 Test 04/14/24 06:08 Range/Units Serum Glucose 147 H 74-106 mg/dL Problem List/Assessment/Plan Problem List/Assessment/Plan ID Problem List: - Cerebrovascular accident with left hand paresis - Bed confined - Uncontrolled diabetes mellitus - Hypercholesterolemia - Hypertension - Paroxysmal atrial fibrillation - Cholelithiasis - Cholecystitis - Recent right MCA stroke with mid-cervical occlusion of right ICA - Necrotic infections of bilateral feet, status post multiple debridements - Stroke Assessment This is a 68 y.o. male with a past medical history of cerebrovascular accident with left hand paresis, uncontrolled diabetes mellitus, hypercholesterolemia, hypertension, paroxysmal atrial fibrillation on Eliquis, recent right MCA stroke with mid-cervical occlusion of the right internal carotid artery, and status post coronary artery bypass graft several years ago, who presents with right upper quadrant pain, obstructive jaundice, and failure to thrive. The patient has been experiencing intermittent right upper quadrant pain and obstructive jaundice. He previously underwent percutaneous transhepatic biliary drainage at [facility] several weeks ago (records pending). Currently, he exhibits poor appetite, significant weight loss, and signs of acute cholecystitis. Vital signs are notable for fever (Tmax 101.5F) and tachycardia. Physical examination reveals right upper quadrant tenderness with guarding, mildly distended abdomen, rash, and open, non-draining foot wounds status post multiple debridements. Laboratory studies show leukocytosis (WBC 11.7 K/L) and elevated creatinine (1.56 mg/dL). Imaging studies are consistent with acute cholecystitis and stercoral colitis. 04/01: whitecount is 10.4 , patients MRPC shows no intro or extra hepatic biliary ductal dilation , no MRI evidence of chololithiasis , gallbladder wall thickening suggest acute cholecystitis . abdominal ultrasound shows cholelithiasis 04/02: per operative note patient underwent a laparoscopic cholecystectomy procedure and was found fibrinous flegmon in the right upper quadrant which consisted of trezors coils momentum loops of bowel. the inflammation was exuberant and after dissecting the momentum from the fundus of the gallbladder became obious the patient had a rupture of the gallbladder which spilled a myriad of natalya stones which was then seaaled off by this momentum and contained in the biloma and a puss collection . cultures and sensitivities were obtained . the myriad little stones were aspirated and scooped up to the best of my ability and then the gallbladder was resected by circumferentially dissecting the cystic duct and cystic artery . no attempt was made to trace the cystic duct to the common duct due to the inflammation and ligament is like adhesions and concretions . area was irrigated . patient remains normal throughout the procedure but there were no complications however the choice of laparoscopic procedure was chosen due to patient having a poor overall health 04/03: patients is growing 2 gram negative rods from operative cultures , whitecount is 16 and has tachycardia to 107s 04/04: whitecount is 13/7 , operative cultures are growing pseudomonas and enterobacteria both having sensitivities to levofloxacin , passing flattis and tolerating clear liquid diet 04/05:whitecount is 13.7 04/06: whitecount is 13.7 and BP is soft with MAPS 04/07: Ct abdomen and pelvis shows surgical drain has been placed in right upper quadrant and there remains post surgical debris and small amount of free fluid in the gallbladder 04/08: appears to be clinically responding to antibiotic therapy , whitecount is 10.8 04/10: patient appears to be clinically responding to antibiotics and is improving 04/11: whitecount is 14 and chest xray shows intrathoracic process 04/12: GPC in blood cultures could be skin nikolai contaminant vs staph infection vs enterococcus infection , will need to allow to speciate 04/13: patient appears to be doing clinically well , gram positive cocci in 02/22 blood cultures is likely coag negative staph suggestive of skin nikolai contaminate 04/14: growing staph epidermitis in blood likely skin nikolai contaminant , vancomycin troth is elevated at 29.5 04/15: creatine is rising , MRI shows scattered patchy restricted diffusion right frontal parietal temporal and occipital lobes consistent with multiple areas of acute to subacute infarcts , no significant edema or mass effect . small chronic cortical infarcts in the right parietal and occipital lobes , mild chronic microvascular white matter ischemic changes Plan: - defer management of embolic stroke to primary and neurology teams - Stop vancomycin due to rising kidney function - repeat blood cultures in 24 hours - follow up on speciation and sensitivities - agree with plan to acquire blood cultures - continuing Zosyn while inpatient , when ready for discharge recommend oral Flagyl 500 mg 3x a day and oral levofloxacin 750 mg 1x a day to complete an additional 14 day course - aspiration precautions - follow up with infectious disease clinic in 4 weeks - defer post op management to general surgery - follow up on gram negative rods species - if tachycardia and other signs of sepsis persists would consider getting blood cultures , broadening out gram negative coverage - keep blood sugars under 180 Isolation Precautions: Standard Plan discussed with: Patient Dietary Evaluation Review Recommendations by RD: Dietary education by RD Comments: 1. Recommend timely diet advancement to Low Fat diet s/p cholecystectomy 2. May consider Ensure Clear supplements TID in the interim appropriate for current diet order to optimize nutrition (250 kcal, 8 gm pro, 0 gm fat/carton) 3. Consulted for TPN/EN: TPN is not clinically indicated at this time due to functional GI tract; should nutrition support be desired, would recommend tube feeding with peptide-based, hydrolyzed formula for improved tolerance - however, advise oral diet trial prior to initiating nutrition support measures Expected Outcomes/Goals: Diet advancement, improved nutritional status, post-op healing TRENT STRINGER MD Apr 15, 2024 21:47
--- NOTE | 2024-04-15 23:00 | DVHPN2 ---
Progress Note - Dictate Date Seen: Apr 15, 2024 Has the PT tested + for MRSA If YES, has PT been informed?: No Medical Necessity Reason Pt with a Central, PICC or Fol: No Medical Necessity Reason Postop care Eval and treatment of acute kidney injury Awaiting Nephrology Subjective The patient is seen at Rm 288 on a tele [place] The patient noted to worsening of nasolabial fold asymmetry left side Is suspected to have developing recurrence of * Recommended patient to receive MRI of head, antiplatelet agent and neurology consult * Also being evaluated for acute kidney injury-serum creatinine up at 1.79 mg/dL * Received ultrasound of renals-shows layering of debris at posterior wall of bladder No hydronephrosis was noted * Continued patient on IV hydration * Requested nephrology consultation from Dr. Donn Mcarthur * Continued patient on IV antibiotics * Receives parenteral analgesics in smaller doses at less frequent basis * Currently followed by Dr. Adriel Mcarthur cardiology and Dr. Raul Barroso infectious Disease Overnight events are reviewed through medical chart and case discussion with patient's assigned RN while making rounds on patient on the day of service vital signs Vital Sign Date Time Temp Pulse Resp B/P (MAP) Pulse Ox O2 Delivery O2 Flow Rate FiO2 04/15/24 21:00 98.2 97 18 121/60 (80) 99 98.2 04/15/24 08:00 Room Air* 0 21 Total Intake and Output 04/14/24 04/14/24 04/15/24 15:00 23:00 07:00 Intake Total 100 ml 500 ml 800 ml Output Total 100 ml 87 ml Balance 100 ml 400 ml 713 ml medications Current Medications Medications Dose Ordered Sig/Aruna Route Start Time Stop Time Status Last Admin Dose Admin Ceftriaxone Sodium/Dextrose 50 ml @ 50 mls/hr DAILY@2100 IV 04/04/24 21:00 Cancel Metronidazole 100 ml @ 100 mls/hr Q8HR IV 04/04/24 06:00 Cancel Atorvastatin Calcium 40 mg HS PO 04/04/24 22:00 04/15/24 21:23 40 MG Aspirin 81 mg DAILY PO 04/04/24 10:00 04/15/24 09:17 81 MG Diagnostic Test (Pha) 1 strip ACHS 04/04/24 07:00 04/15/24 21:23 1 STRIP Insulin Human Regular HS SC 04/04/24 22:00 04/15/24 22:09 2 UNITS Insulin Human Regular AC SC 04/04/24 07:00 04/15/24 18:25 2 UNITS Dextrose 50 ml UD PRN IV 04/03/24 22:45 Piperacillin Sod/ Tazobactam Sod 100 ml @ 25 mls/hr Q8HR@0100,0900,1700 IV 04/04/24 01:00 04/15/24 18:23 25 MLS/HR Docusate Sodium 100 mg BIDP PO 04/05/24 10:00 04/15/24 21:23 100 MG Ondansetron HCl 4 mg Q6HPRN PRN IV 04/11/24 00:45 Pantoprazole Sodium 40 mg DAILY@0600 PO 04/11/24 06:00 04/15/24 06:07 40 MG Hydromorphone HCl 0.2 mg Q4HPRN PRN IV 04/11/24 01:15 Hydromorphone HCl 0.4 mg Q4HPRN PRN IV 04/11/24 01:15 04/15/24 09:17 0.4 MG Acetaminophen/ Hydrocodone Bitart 1 tab Q4HPRN PRN PO 04/11/24 01:15 04/15/24 21:25 1 TAB Vancomycin HCl 0 ml @ 0 mls/hr UD IV 04/12/24 14:45 Cancel Dextrose/Sodium Chloride 1,000 ml @ 100 mls/hr Q10H IV 04/14/24 17:45 04/15/24 14:01 100 MLS/HR objective Physical Exam General appearance: Well-developed, well-nourished middle-aged male Awake alert oriented x2 Reports post surgical pains Head: Normocephalic nontraumatic Eyes: EOMI, ALIE, sclera nonicteric, conjunctive- pale ENT: No congestion, NSL bilateral symmetrical, oral mucosa wet Neck: Supple, carotid upstroke +2, trachea midline, JVD 2 cm No goiter/stridor, no lymph nodes JVD-3 cm, C spine- Full ROM No use of sternomastoid muscle Chest: Bilateral symmetrical expansions, no costochondral tenderness Lungs: clear breath sounds all over except reduced at bases CVS: PMI-1 cm medial to L MCL in fifth ICS , S1-S2 NSR no S3 GI: Abdomen soft, obese, bowel sounds hypoactive RUQ-postsurgical wound -clean minimally tender GLORIA drain-serous discharge No RUQ tenderness, no rebound tenderness No hepatosplenomegaly, no mass no hernia , : No CVA tenderness, no bladder mass palpable, genitalia-NE SKIN: Turgor dry, color pink, no rash, no icterus, No varicosity, no ulcers or wounds EXTs: No edema, color pink, no rash, no ecchymosis distal pulses +2 capillary refill <2 seconds, No open wounds JOINTS; full range of motion BACK: No apparent lumbosacral spinal muscle tenderness, LYMPH NODES: No cervical, axillary or inguinal lymph nodes Neuro: Awake alert oriented x2 speech nonfluent expressive aphasia Left-sided hemiparesis motor strength three to 4/5 Sensory-changes of DPN as before PSYCH: Affect mildly depressed-denies suicidal ideation laboratory and microbiology Laboratory Tests 04/15/24 05:34 04/14/24 06:08 Test 04/14/24 06:08 Range/Units Serum Glucose 147 H 74-106 mg/dL ORDERING PHYSICIAN: ALLA BARROSO MD PROCEDURE(s): KIDUS - KIDNEY REASON: CARMEL ORDER NUMBER(s): [id number], ACCESSION NUMBER(s): [id number] RENAL ULTRASOUND CLINICAL HISTORY: CARMEL COMPARISON: CT abdomen and pelvis 04/07/2024 FINDINGS: The right kidney measures 11.8 cm in length. The left kidney measures 9.3 cm. The kidneys demonstrate appropriate echotexture without evidence of a discrete renal lesion, nephrolithiasis or hydronephrosis. Bladder prevoid volume measures 157 cc. There is dependently layering debris along the posterior wall of the bladder. IMPRESSION: 1. Unremarkable sonographic appearance of the kidneys. 2. Dependently layering debris along the posterior wall of the bladder. HS:Y EDURE(s): MBHL - BRAIN HEAD WO CONTRAST REASON: R/O STROKE ORDER NUMBER(s): [id number], ACCESSION NUMBER(s): [id number] EXAMINATION: MRI BRAIN HEAD WO CONTRAST INDICATION: R/O STROKE COMPARISON: None FINDINGS: There are multiple scattered small and patchy foci of restricted diffusion involving the right frontal, parietal, temporal and occipital lobes. There is patchy restricted diffusion in the splenium of the corpus callosum and along the right centrum semiovale. The findings are consistent with multiple areas of acute to subacute infarcts. There is no evidence of acute hemorrhage. There is no significant edema or mass effect. There are small chronic cortical infarcts in the right parietal lobe and in the right occipital lobe. There are mild chronic microvascular white matter ischemic changes. There is no hydrocephalus or extra-axial fluid collection. The visualized intracranial vasculature demonstrates appropriate flow-voids. The sagittal midline structures appear unremarkable. The craniocervical junction is within normal limits. The calvarium demonstrates normal marrow signal. The paranasal sinuses and mastoid air cells are clear. IMPRESSION: 1. There are multiple scattered small and patchy foci of restricted diffusion involving the right frontal, parietal, temporal and occipital lobes consistent with multiple areas of acute to subacute infarcts. There is no evidence of acute hemorrhage. There is no significant edema or mass effect. 2. There are small chronic cortical infarcts in the right parietal and occipital lobes. 3. Mild chronic microvascular white matter ischemic changes. HS:Y RING PHYSICIAN: RADHA MORALES MD PROCEDURE(s): CARCL - CAROTID DUPLX W COLOR DOP REASON: cva ORDER NUMBER(s): [id number], ACCESSION NUMBER(s): [id number] Carotid Duplex Clinical History: cva Comparison: None Findings: RIGHT SIDE: No abnormality is demonstrated in the right common carotid artery. There is plaque at the right carotid bifurcation and proximal right ICA. There is occlusion of the proximal right ICA. There is appropriate antegrade flow in the right vertebral artery. LEFT SIDE: Evidence of mild plaque at left carotid bifurcation/proximal left ICA. The peak systolic velocities are 80 cm/s in the CCA, 65 cm/s in the ICA. The ICA/CCA ratio is 0.8. The external carotid artery is patent with peak systolic velocity of cm/s proximally. There is appropriate antegrade flow in the left vertebral artery. IMPRESSION: 1. Occlusion of proximal right ICA. 2. No hemodynamically significant stenosis in left carotid system. Problem List 1. Status post laparoscopy...................... Postoperative day 13 Evacuation of biloma, drainage of abscess and lysis of adhesions 2. Status post Acute cholecystitis Complicated by biloma, abscess and adhesions 3. Acute kidney injury From A intravascular depletion B. Post obstructive nephropathy- is ruled out 4. Acute on chronic iron-deficiency anemia from a. postsurgical blood loss vs hemodilution 5. 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 Fairly well-controlled diabetes and hypertension 2' Diagnosis/Comorbidities Noncompliance with medical recommendations Doppler lower Assessment/Plan Medical decision making The patient is seen on a postop day 13 of his receiving laparoscopic cholecystectomy * Remains hemodynamically stable and afebrile * ontinued on IV antibiotics-IV Zosyn as per Dr. 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 Raul Barroso as Infectious Disease and Dr. Adriel Mcarthur from Cardiology Treatment Plans Continue hospital stay on telemetry Reviewed results of MRI and carotid artery duplex study Reviewed the input of of Dr. Morales neurology Continue IV hydration at 100 mL Repeat BMP in the morning Continue small doses of parenteral analgesics for postsurgical pains Continue IV Zosyn Awaiting Nephrology consult Reviewed input of Dr. Raul Barroso ,ID and Dr. Adriel Mcarthur Cardiology Refer to social Service for discharge planning Reviewed input of CLINICAL ACCOUNT EXECUTIVE-GI consult Reconciled home meds VTE precautions Update patient The patient and and his were well informed by me about 1. Clinical impression, treatment plans, side effects of medications, course of the disease and fair to guarded prognosis 2. All patient's question/ concerns raised by patient are satisfactorily addressed by me Total time spent 45 minutes 40% of time spent interviewing the patient and physical exam 30% of time spent in gathering lab datas and imaging studies 30 % of time is spent in patient education Dietary Evaluation Review Recommendations by RD: Dietary education by RD Comments: 1. Recommend timely diet advancement to Low Fat diet s/p cholecystectomy 2. May consider Ensure Clear supplements TID in the interim appropriate for current diet order to optimize nutrition (250 kcal, 8 gm pro, 0 gm fat/carton) 3. Consulted for TPN/EN: TPN is not clinically indicated at this time due to functional GI tract; should nutrition support be desired, would recommend tube feeding with peptide-based, hydrolyzed formula for improved tolerance - however, advise oral diet trial prior to initiating nutrition support measures Expected Outcomes/Goals: Diet advancement, improved nutritional status, post-op healing Plan discussed with: Patient Total Time (mins): 45 ALLA BARROSO MD Apr 15, 2024 23:00
--- NOTE | 2024-04-15 23:10 | DVHPN2 ---
Progress Note - Dictate Date Seen: Apr 15, 2024 Has the PT tested + for MRSA If YES, has PT been informed?: No Medical Necessity Reason Pt with a Central, PICC or Fol: No Subjective Mr. Corcoran is a 68 years old right-handed gentleman with a history of hypertension, diabetes, dyslipidemia, coronary artery disease, heart attack, atrial fibrillation, right carotid occlusion, stroke with residual left-sided weakness/bad defined, gallstone, the patient was transferred from his [facility] to [facility] on 03/28/24 with a chief company of abdominal pain, deteriorating of his general condition. I have seen and examined the patient, I have discussed with his nurse, he is awake, oriented to person, place, his speech disturbance is worse, he may have expressive aphasia On physical examination, the left-sided weakness is worse WBC/HB/PLT/MCV, 04/14/2024: 17.3/9.9/381/90.6 04/15/2024: 16.4/9.5/374/89.1 BUN/CR, 04/14/2024: 12/1.58 Liver function tests, 04/14/2024: Unremarkable Carotid Doppler,04/01/24: DILATED ALL CARDIAC CHAMBERS MODERATELY DILATED LV MODERATE DEGREE LV GLOBAL HYPOKINESIS LV EF IS ONLY 25% NORMAL VALVES DYSKINESIS OF IVS NO EFFUSION DILATED CARDIOMYOPATHY WITH MODERATE DEGREE LV SYSTOLIC DYSFUNCTION MRI head, 04/15/2024: 1. There are multiple scattered small and patchy foci of restricted diffusion involving the right frontal, parietal, temporal and occipital lobes consistent with multiple areas of acute to subacute infarcts. There is no evidence of acute hemorrhage. There is no significant edema or mass effect. 2. There are small chronic cortical infarcts in the right parietal and occipital lobes. 3. Mild chronic microvascular white matter ischemic changes vital signs Vital Sign Date Time Temp Pulse Resp B/P (MAP) Pulse Ox O2 Delivery O2 Flow Rate FiO2 04/15/24 21:00 98.2 97 18 121/60 (80) 99 98.2 04/15/24 08:00 Room Air* 0 21 Total Intake and Output 04/14/24 04/14/24 04/15/24 15:00 23:00 07:00 Intake Total 100 ml 500 ml 800 ml Output Total 100 ml 87 ml Balance 100 ml 400 ml 713 ml medications Current Medications Medications Dose Ordered Sig/Aruna Route Start Time Stop Time Status Last Admin Dose Admin Ceftriaxone Sodium/Dextrose 50 ml @ 50 mls/hr DAILY@2100 IV 04/04/24 21:00 Cancel Metronidazole 100 ml @ 100 mls/hr Q8HR IV 04/04/24 06:00 Cancel Atorvastatin Calcium 40 mg HS PO 04/04/24 22:00 04/15/24 21:23 40 MG Aspirin 81 mg DAILY PO 04/04/24 10:00 04/15/24 09:17 81 MG Diagnostic Test (Pha) 1 strip ACHS 04/04/24 07:00 04/15/24 21:23 1 STRIP Insulin Human Regular HS SC 04/04/24 22:00 04/15/24 22:09 2 UNITS Insulin Human Regular AC SC 04/04/24 07:00 04/15/24 18:25 2 UNITS Dextrose 50 ml UD PRN IV 04/03/24 22:45 Piperacillin Sod/ Tazobactam Sod 100 ml @ 25 mls/hr Q8HR@0100,0900,1700 IV 04/04/24 01:00 04/15/24 18:23 25 MLS/HR Docusate Sodium 100 mg BIDP PO 04/05/24 10:00 04/15/24 21:23 100 MG Ondansetron HCl 4 mg Q6HPRN PRN IV 04/11/24 00:45 Pantoprazole Sodium 40 mg DAILY@0600 PO 04/11/24 06:00 04/15/24 06:07 40 MG Hydromorphone HCl 0.2 mg Q4HPRN PRN IV 04/11/24 01:15 Hydromorphone HCl 0.4 mg Q4HPRN PRN IV 04/11/24 01:15 04/15/24 09:17 0.4 MG Acetaminophen/ Hydrocodone Bitart 1 tab Q4HPRN PRN PO 04/11/24 01:15 04/15/24 21:25 1 TAB Vancomycin HCl 0 ml @ 0 mls/hr UD IV 04/12/24 14:45 Cancel Dextrose/Sodium Chloride 1,000 ml @ 100 mls/hr Q10H IV 04/14/24 17:45 04/15/24 14:01 100 MLS/HR objective General: the patient is well developed and nourished. No acute distress. MENTAL STATUS: Awake and alert. Oriented to person, place SPEECH, LANGUAGE, HIGHER CORTICAL FUNCTION: no aphasia, he was mild dysathria. CRANIAL NERVES: Dense left homonymous hemianopsia Pupils are equal, round and reactive. EOMs full and conjugate. Facial sensation intact in all three divisions bilaterally. Mandibular strength intact. Left facial weakness of upper motor neuron pattern SENSATION: Sensation to touch and pinprick is normal. MOTOR: Normal tone in the upper and lower extremity. Normal muscle bulk. No fasciculations. No abnormal movements or posturing. Muscle strength of the major groups in the right extremities is: Upper: 5/5, Lower: 3-4/5. Muscle strength of the major groups in the lower extremities: Upper extremity: 2/5. Lower extremity: 1-2/5 REFLEXES: Deep tendon reflexes are symmetrical. No pathological reflexes. CEREBELLAR/COORDINATION: Deferred GAIT/STATION: deferred laboratory and microbiology Laboratory Tests 04/15/24 05:34 04/14/24 06:08 Test 04/14/24 06:08 Range/Units Serum Glucose 147 H 74-106 mg/dL Problem List Worsened slurred speech, left facial drooping, to rule out acute stroke Chronic stroke with residual left-sided hemiparesis, bed bound Left homonymous hemianopsia, secondary to stroke Atrial fibrillation Assessment/Plan Monitoring Supportive treatment Telemetry Lipid profile Carotid Doppler Plavix 75 mg daily Aspirin 81 mg daily Lipitor 40 mg daily Consider Lovenox/Eliquis 2.5mg Bid if OK with Dr. Barroso GI prophylax Cardiology on case Infectious disease on case More recommendation per clinical course This medical document was created using an electronic medical record system with [employer] dictation system. Although this document has been carefully reviewed, there may still be some phonetic and typographical errors. These areas are purely typographical due to imperfections of the software programs, and do not reflect any compromise in the patient's medical care. Prognosis poor Dietary Evaluation Review Recommendations by RD: Dietary education by RD Comments: 1. Recommend timely diet advancement to Low Fat diet s/p cholecystectomy 2. May consider Ensure Clear supplements TID in the interim appropriate for current diet order to optimize nutrition (250 kcal, 8 gm pro, 0 gm fat/carton) 3. Consulted for TPN/EN: TPN is not clinically indicated at this time due to functional GI tract; should nutrition support be desired, would recommend tube feeding with peptide-based, hydrolyzed formula for improved tolerance - however, advise oral diet trial prior to initiating nutrition support measures Expected Outcomes/Goals: Diet advancement, improved nutritional status, post-op healing Plan discussed with: Other Total Time (mins): 40 RADHA CORNEJO MD Apr 15, 2024 23:10
[2024-04-16] VITALS (7 sets, daily range): BP systolic 109–131; BP diastolic 65–73; PULSE 90–109; RESP 18–19; TEMP 97.8–99; O2SAT 95–99
--- NOTE | 2024-04-16 00:26 | DVH ---
Carotid Duplex Clinical History: cva Comparison: None Technique: Duplex Doppler evaluation of the extracranial carotid and vertebral arteries including color Doppler and spectral/pulsed waveform analysis was performed. Findings: RIGHT SIDE: No abnormality is demonstrated in the right common carotid artery. There is plaque at the right carot id bifurcation and proximal right ICA. There is occlusion of the proximal right ICA. There is appropriate antegrade flow in the right vertebral artery. LEFT SIDE: Evidence of mild plaque at left carotid bifurcation/proximal left ICA. The peak systolic velocities are 80 cm/s in the CCA, 65 cm/s in the ICA. The ICA/CCA ratio is 0.8. The external carotid artery is patent with peak systolic velocity of cm/s proximally. There is appropriate antegrade flow in the left vertebral artery. IMPRESSION: 1. Occlusion of proximal right ICA. 2. No hemodynamically significant stenosis in left carotid system. Reference: Radiology 2003; 229:340-346 Normal ICA PSV is <125 cm/sec and no plaque or intimal thickening is visible sonographically additional criteria include ICA/CCA PSV ratio <2.0 and ICA EDV <40 cm/sec <50% ICA stenosis ICA PSV is <125 cm/sec and plaque or intimal thickening is visible sonographically additional criteria include ICA/CCA PSV ratio <2.0 and ICA EDV <40 cm/sec 50-69% ICA stenosis ICA PSV is 125-230 cm/sec and plaque is visible sonographically additional criteria include ICA/CCA PSV ratio of 2.0-4.0 and ICA EDV of 40-100 cm/sec 70% ICA stenosis but less than near occlusion ICA PSV is >230 cm/sec and visible plaque and luminal narrowing are seen at diamond-scale and color Dopp ler ultrasound (the higher the Doppler parameters lie above the threshold of 230 cm/sec, the greater the likelihood of severe disease) additional criteria include ICA/CCA PSV ratio >4 and ICA EDV >100 cm/sec
[2024-04-16] MEDS: CLOPIDOGREL BISULFATE 75 MG TAB PO SCH (01:07)
[2024-04-16] MEDS: PANTOPRAZOLE 40 MG TAB PO SCH (06:47)
[2024-04-16] MEDS: D5W/SOD CHL 0.45% 1,000 ML IV SCH (06:52)
[2024-04-16 07:46] LABS: Basophils # (auto) 0.1 10 ^3/uL (0-0.2); Basophils % (auto) 0.4 % (0.0-2.0); Eosinophils # (auto) 0.2 10 ^3/uL (0-0.8); Hemoglobin 9.9 g/dL (13.5-17.5); Monocytes # (auto) 1.1 10 ^3/uL (0-1.3); Neutrophils % (auto) 81.3 % (37.0-80.0)
[2024-04-16 07:50] LABS: Eosinophils % (auto) 1.5 % (0.0-7.0); Hematocrit 30.3 % (41.0-53.0); Lymphocytes # (auto) 1.4 10 ^3/uL (0.4-5.4); Lymphocytes % (auto) 9.6 % (10.0-50.0); Mean Corpuscular Hemoglobin 28.9 pg (28.0-32.0); Mean Corpuscular Hgb Conc. 32.6 g/dL (32.0-36.0); Mean Corpuscular Volume 88.5 fL (80.0-100.0); Monocytes % (auto) 7.2 % (0.0-12.0); Neutrophils # (auto) 12.2 10 ^3/uL (1.6-8.6); Platelet Count (auto) 473 10^3/uL (140-450); Red Blood Cells 3.42 10^6/uL (4.5-5.90); Red Cell Distribution Width 14.3 % (11.8-14.3)
[2024-04-16 07:58] LABS: Alanine Aminotransferase 14 U/L (7-40); Albumin 3.8 g/dL (3.2-4.8); Alkaline Phosphatase 110 U/L (46-116); Anion Gap 9 (5-15); Aspartate Aminotransferase 20 U/L (13-40); BUN/Creatinine Ratio 7.2 (10.0-20.0); Bilirubin, Total 0.4 mg/dL (0.2-1.0); Blood Urea Nitrogen 13 mg/dL (9-23); Calcium 9.1 mg/dL (8.7-10.4); Carbon Dioxide 25 mmol/L (20-31); Chloride 106 mmol/L (98-107); Cholesterol 80 mg/dL (< 200); LDL Cholesterol 47 mg/dL (< 100); Potassium 4.4 mmol/L (3.5-5.1); Sodium 140 mmol/L (136-145); Total Protein 6.4 g/dL (5.7-8.2); Triglycerides 116 mg/dL (< 150)
[2024-04-16 08:01] LABS: Glucose 150 mg/dL (74-106); HDL Cholesterol 16 mg/dL (40-59)
--- NOTE | 2024-04-16 09:57 | DVHPN2 ---
Progress Note - Surgical Date Seen: Apr 16, 2024 Post op day Post op day: 14 Subjective Patient reports: No new complaints Review of Systems: HEENT:Normal, CVS:Normal, RESPIRATORY:Normal, GI:Normal, :Normal, NEURO:Normal Objective Vital signs Vital Sign Date Time Temp Pulse Resp B/P (MAP) Pulse Ox O2 Delivery O2 Flow Rate FiO2 04/16/24 05:00 97.8 92 19 131/73 (92) 95 97.8 04/15/24 20:00 Room Air* 0 21 Total Intake and Output 04/15/24 04/15/24 04/16/24 15:00 23:00 07:00 Intake Total 920 ml 787.5 ml 400 ml Output Total 30 ml 40 ml Balance 890 ml 747.5 ml 400 ml Medications Current Medications Medications Dose Ordered Sig/Aruna Route Start Time Stop Time Status Last Admin Dose Admin Ceftriaxone Sodium/Dextrose 50 ml @ 50 mls/hr DAILY@2100 IV 04/04/24 21:00 Cancel Metronidazole 100 ml @ 100 mls/hr Q8HR IV 04/04/24 06:00 Cancel Atorvastatin Calcium 40 mg HS PO 04/04/24 22:00 04/15/24 21:23 40 MG Aspirin 81 mg DAILY PO 04/04/24 10:00 04/16/24 08:57 81 MG Diagnostic Test (Pha) 1 strip ACHS 04/04/24 07:00 04/16/24 07:49 1 STRIP Insulin Human Regular HS SC 04/04/24 22:00 04/15/24 22:09 2 UNITS Insulin Human Regular AC SC 04/04/24 07:00 04/15/24 18:25 2 UNITS Dextrose 50 ml UD PRN IV 04/03/24 22:45 Piperacillin Sod/ Tazobactam Sod 100 ml @ 25 mls/hr Q8HR@0100,0900,1700 IV 04/04/24 01:00 04/16/24 08:54 25 MLS/HR Docusate Sodium 100 mg BIDP PO 04/05/24 10:00 04/15/24 21:23 100 MG Ondansetron HCl 4 mg Q6HPRN PRN IV 04/11/24 00:45 Hydromorphone HCl 0.2 mg Q4HPRN PRN IV 04/11/24 01:15 Hydromorphone HCl 0.4 mg Q4HPRN PRN IV 04/11/24 01:15 04/16/24 01:44 0.4 MG Acetaminophen/ Hydrocodone Bitart 1 tab Q4HPRN PRN PO 04/11/24 01:15 04/15/24 21:25 1 TAB Vancomycin HCl 0 ml @ 0 mls/hr UD IV 04/12/24 14:45 Cancel Dextrose/Sodium Chloride 1,000 ml @ 150 mls/hr Q6H40M IV 04/16/24 06:30 04/16/24 06:52 150 MLS/HR Pantoprazole Sodium 40 mg DAILY@0600 PO 04/16/24 06:00 04/16/24 06:47 40 MG Clopidogrel Bisulfate 75 mg DAILY PO 04/15/24 23:25 05/05/24 23:00 04/16/24 08:58 75 MG Laboratory Laboratory Tests 04/16/24 07:15 Test 04/16/24 07:15 Range/Units Serum Glucose 150 H 74-106 mg/dL Microbiology Date/Time Source Procedure Growth Status 04/13/24 16:07 Blood Blood Culture - Preliminary NO GROWTH AFTER 48 HOURS OF INCUBATION. Resulted 04/02/24 17:16 Nose MRSA Screen - Final Complete 04/02/24 13:00 Gallbladder Fluid Anaerobic Culture - Final Complete 04/02/24 13:00 Aerobic Culture - Final Pseudomonas aeruginosa Enterobacter aerogenes Complete Examination: GENERAL:Normal, HEENT:Normal, NECK:Normal, LUNGS:Normal, CVS:Normal, ABDOMEN:Abnormal (GLORIA drain serous fluid , GLORIA drain #2 bile fluid ), SKIN:Normal Problem List/Assessment/Plan Problems: (1) Cerebrovascular accident (CVA) with left hemiparesis (2) Acute cholecystitis (3) Leukocytosis (4) S/P cholecystectomy Assessment and Plan no new complaints abdomen soft , non distended, appropriately tender wounds clean dry and intact GLORIA drains about 150cc serous/brown fluid Plan: continue with current treatment continue IV antibiotics pain control ok to downgrade to telemetry with a sitter Dr. Marin agrees with Plan 04/06/2024 no new complaints abdomen soft , non distended, appropriately tender wounds clean dry and intact GLORIA drains about 15cc serous/brown fluid tolerating diet Plan: continue current treatment IV antibiotics 04/08/2024 @1500 feeling better abdomen soft , non distended, non tender, passing gas, denies nausea or vomiting wounds clean dry and intact GLORIA drains one with bile/serous colored fluid 30cc second drain minimal serous fluid tolerating diet Plan: Empty drains daily IV hydration and antibiotics advance diet as tolerated Discussed with Dr. Marin 04/10/24 feeling better abdomen soft , non distended, non tender, passing gas, denies nausea or vomiting wounds clean dry and intact GLORIA drains one with bile/serous colored fluid 15cc, drainage decreased per assessment and notes second drain minimal serous fluid tolerating diet Plan: Empty drains daily IV hydration and antibiotics advance diet as tolerated Discussed with Dr. Marin S/P laparoscopic cholecystectomy patient resting in bed, GLORIA drains one with minimal serous fluid 2nd GLORIA drain 30cc bile colored fluid (total output 100cc over 24 hours) -febrile -elevated WBC Plan: Continue IV antibiotics replace Velazquez with an external catheter blood culture chest X-ray tomorrow AM GLORIA drains to Bulb suction Plan discussed with Dr. Marin and agrees 04/12/2024 s/p laparoscopic cholecystectomy no new complaints awake resting comfortably in bed abdominal wounds clean dry and francisco intact GLORIA drains one with 20cc bile fluid second drain 5 cc serous fluid , output decreasing pending labs , review of chest x ray Plan: GLORIA drains bulb suction use of incentive spirometer continue IV antibiotics labs pending blood cultures 04/14/24 patient status post laparoscopic cholecystectomy GLORIA drains 100cc bile colored fluid abdomen soft , non distended bowel movement this morning elevated WBC Plan: continue with current treatment continue with infectious disease recommendations Discussed with Dr. Marin 04/16/2024 patent status post laparoscopic cholecystectomy GLORIA drain 100 cc bile fluid GLORIA drain #2 minimal serous fluid drainage abdomen soft , non distended, non tender, bowel movements elevated WBC Plan: continue IV antibiotics as per Infectious disease Empty GLORIA drains when half full and reapply bulb suction Plan discussed with Plan discussed with: Patient, Other (Dr. Marin ) Visit Coding Surgery Date of Service if different f: Apr 16, 2024 Billing Provider: YOEL MARIN MD Surgery Visit Codes: [id number] INP/OBS CARE(HIGH) LAMAR CHOE DNP Apr 16, 2024 09:57
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
--- NOTE | 2024-04-16 18:35 | DVHPN2 ---
Progress Note - Dictate Date Seen: Apr 16, 2024 Has the PT tested + for MRSA If YES, has PT been informed?: No Medical Necessity Reason Pt with a Central, PICC or Fol: No Subjective Patient was seen and evaluated in follow up. Patient is resting in bed. Patietn has minimal abdominal pain. GLORIA drain#1 100 cc bile fluid, GLORIA drain #2 minimal serous fluid drainage. WBC 15, HGB 9.9, HCT 30.3, CARD GRINDER 1.80. Telemetry reviewed. vital signs Vital Sign Date Time Temp Pulse Resp B/P (MAP) Pulse Ox O2 Delivery O2 Flow Rate FiO2 04/16/24 05:00 97.8 92 19 131/73 (92) 95 97.8 04/15/24 20:00 Room Air* 0 21 Total Intake and Output 04/15/24 04/15/24 04/16/24 15:00 23:00 07:00 Intake Total 920 ml 787.5 ml 400 ml Output Total 30 ml 40 ml Balance 890 ml 747.5 ml 400 ml medications Current Medications Medications Dose Ordered Sig/Aruna Route Start Time Stop Time Status Last Admin Dose Admin Ceftriaxone Sodium/Dextrose 50 ml @ 50 mls/hr DAILY@2100 IV 04/04/24 21:00 Cancel Metronidazole 100 ml @ 100 mls/hr Q8HR IV 04/04/24 06:00 Cancel Atorvastatin Calcium 40 mg HS PO 04/04/24 22:00 04/15/24 21:23 40 MG Aspirin 81 mg DAILY PO 04/04/24 10:00 04/16/24 08:57 81 MG Diagnostic Test (Pha) 1 strip ACHS 04/04/24 07:00 04/16/24 11:34 1 STRIP Insulin Human Regular HS SC 04/04/24 22:00 04/15/24 22:09 2 UNITS Insulin Human Regular AC SC 04/04/24 07:00 04/16/24 11:34 2 UNITS Dextrose 50 ml UD PRN IV 04/03/24 22:45 Piperacillin Sod/ Tazobactam Sod 100 ml @ 25 mls/hr Q8HR@0100,0900,1700 IV 04/04/24 01:00 04/16/24 08:54 25 MLS/HR Docusate Sodium 100 mg BIDP PO 04/05/24 10:00 04/15/24 21:23 100 MG Ondansetron HCl 4 mg Q6HPRN PRN IV 04/11/24 00:45 Hydromorphone HCl 0.2 mg Q4HPRN PRN IV 04/11/24 01:15 Hydromorphone HCl 0.4 mg Q4HPRN PRN IV 04/11/24 01:15 04/16/24 01:44 0.4 MG Acetaminophen/ Hydrocodone Bitart 1 tab Q4HPRN PRN PO 04/11/24 01:15 04/15/24 21:25 1 TAB Vancomycin HCl 0 ml @ 0 mls/hr UD IV 04/12/24 14:45 Cancel Dextrose/Sodium Chloride 1,000 ml @ 150 mls/hr Q6H40M IV 04/16/24 06:30 04/16/24 06:52 150 MLS/HR Pantoprazole Sodium 40 mg DAILY@0600 PO 04/16/24 06:00 04/16/24 06:47 40 MG Clopidogrel Bisulfate 75 mg DAILY PO 04/15/24 23:25 05/05/24 23:00 04/16/24 08:58 75 MG objective GENERAL: Awake, alert, oriented. LUNGS: Clear. CARDIOVASCULAR: Heart sounds are good. ABDOMEN: Soft. RUQ TTP. laboratory and microbiology Laboratory Tests 04/16/24 07:15 Test 04/16/24 07:15 Range/Units Serum Glucose 150 H 74-106 mg/dL Problem List Acute RUQ abdominal pain. Acute cholecystitis. Recent history of choledocholithiasis and obstructive jaundice. Status post percutaneous transhepatic biliary drainage. Hypovolemia. Right CVA with left-sided hemiparesis. Diabetes. Hypertension. Noncompliance with medical recommendations. Assessment/Plan Continued all current supportive medical care. Dilaudid and [place] for pain management. Aspirin, Lipitor. IV antibiotics as ordered. GI prophylactics. Additional plan as per the hospital course. Dietary Evaluation Review Recommendations by RD: Dietary education by RD Comments: 1. Recommend timely diet advancement to Low Fat diet s/p cholecystectomy 2. May consider Ensure Clear supplements TID in the interim appropriate for current diet order to optimize nutrition (250 kcal, 8 gm pro, 0 gm fat/carton) 3. Consulted for TPN/EN: TPN is not clinically indicated at this time due to functional GI tract; should nutrition support be desired, would recommend tube feeding with peptide-based, hydrolyzed formula for improved tolerance - however, advise oral diet trial prior to initiating nutrition support measures Expected Outcomes/Goals: Diet advancement, improved nutritional status, post-op healing Plan discussed with: Patient ANITRA HOOD MD Apr 16, 2024 12:33
--- NOTE | 2024-04-16 18:49 | DVHINCON2 ---
Date of service: Apr 16, [address] Ravi Barroso Reason for Consultation ELEVATED CREATININE History of Present Illness This is a 68-year-old male with history of fall uncontrolled diabetes, hyperlipidemia, history of past CVA with left hemiparesis admitted to the emergency room for abdominal pain. Patient underwent cholecystectomy on the 02 of April. Nephrology has been consulted because of rising creatinine. Creatinine on admission was 0.5 which has progressively increased to 1.8 as of today. Urine output has been minimal. Patient did undergo a renal ultrasound which showed evidence of debris in the bladder. Velazquez catheter was removed few days ago. Urology was consulted. Past Medical History Hypertension Coronary artery disease Paroxysmal atrial fibrillation Type 2 diabetes Hyperlipidemia CVA with left-sided weakness Depression Past Surgical History Debridement of wound on bilateral feet Family History Negative for CKD Social History No active history of smoking, alcohol or drug abuse Allergies: Coded Allergies: NO KNOWN ALLERGIES (Unverified , 03/28/24) Current Medications Current Medications Medications (Trade) Dose Ordered Sig/Aruna Route PRN Reason Start Time Stop Time Status Last Admin Dextrose/Sodium Chloride 1,000 ml @ 150 mls/hr Q6H40M IV 04/16/24 06:30 04/16/24 17:36 Pantoprazole Sodium (Protonix Tablet) 40 mg DAILY@0600 PO 04/16/24 06:00 04/16/24 06:47 Clopidogrel Bisulfate (Plavix) 75 mg DAILY PO 04/15/24 23:25 05/05/24 23:00 04/16/24 08:58 Review of Systems Unable to obtain Vital Signs Vital Signs Date Time Temp Pulse Resp B/P (MAP) Pulse Ox O2 Delivery O2 Flow Rate FiO2 04/16/24 13:18 99.0 95 18 122/71 (88) 97 99.0 04/15/24 20:00 Room Air* 0 21 Physical Exam Alert Lungs: Bilateral good air entry CVS: S1, S2 regular rate rhythm Abdomen: Soft, bowel sounds present COUNTERPERSON: left sided weakness Extremities: No edema Labs/Diagnostic Data Labs Test 04/16/24 17:23 04/16/24 07:15 04/15/24 05:34 04/14/24 03:53 Range/Units POC Glucose 159 H 70-106 mg/dl White Blood Count 15.0 H 4.4-10.8 10^3/uL Red Blood Count 3.42 L 4.5-5.90 10^6/uL Hemoglobin 9.9 L 13.5-17.5 g/dL Hematocrit 30.3 L 41.0-53.0 % Mean Corpuscular Volume 88.5 80.0-100.0 fL Mean Corpuscular Hemoglobin 28.9 28.0-32.0 pg Mean Corpuscular Hemoglobin Concent 32.6 32.0-36.0 g/dL Red Cell Distribution Width 14.3 11.8-14.3 % Platelet Count 473 H 140-450 10^3/uL Mean Platelet Volume 6.4 L 6.9-10.8 fL Neutrophils (%) (Auto) 81.3 H 37.0-80.0 % Lymphocytes (%) (Auto) 9.6 L 10.0-50.0 % Monocytes (%) (Auto) 7.2 0.0-12.0 % Eosinophils (%) (Auto) 1.5 0.0-7.0 % Basophils (%) (Auto) 0.4 0.0-2.0 % Neutrophils # (Auto) 12.2 H 1.6-8.6 10 ^3/uL Lymphocytes # (Auto) 1.4 0.4-5.4 10 ^3/uL Monocytes # (Auto) 1.1 0-1.3 10 ^3/uL Eosinophils # (Auto) 0.2 0-0.8 10 ^3/uL Basophils # (Auto) 0.1 0-0.2 10 ^3/uL Nucleated Red Blood Cells 0.0 % Sodium Level 140 136-145 mmol/L Potassium Level 4.4 3.5-5.1 mmol/L Chloride Level 106 98-107 mmol/L Carbon Dioxide Level 25 20-31 mmol/L Anion Gap 9 5-15 Blood Urea Nitrogen 13 9-23 mg/dL Creatinine 1.80 H 0.700-1.30 mg/dL Glomerular Filtration Rate Calc 41 >90 mL/min BUN/Creatinine Ratio 7.2 L 10.0-20.0 Serum Glucose 150 H 74-106 mg/dL Calcium Level 9.1 8.7-10.4 mg/dL Total Bilirubin 0.4 0.2-1.0 mg/dL Aspartate Amino Transferase (AST) 20 13-40 U/L Alanine Aminotransferase (ALT) 14 7-40 U/L Alkaline Phosphatase 110 46-116 U/L Total Protein 6.4 5.7-8.2 g/dL Albumin 3.8 3.2-4.8 g/dL Triglycerides Level 116 < 150 mg/dL Cholesterol Level 80 < 200 mg/dL LDL Cholesterol 47 < 100 mg/dL HDL Cholesterol 16 L 40-59 mg/dL Random Vancomycin Level 18.2 H 5-10 ug/mL Vancomycin Level Trough 29.5 H 5-10 ug/mL Test 04/06/24 06:51 04/05/24 05:20 04/04/24 04:40 04/01/24 07:06 Range/Units Magnesium Level 1.6 1.6-2.6 mg/dL Phosphorus Level 3.4 2.4-5.1 mg/dL Prothrombin Time 12.7 H 9.3-11.8 sec Prothrombin Time INR 1.22 H 0.9-1.15 Activated Partial Thromboplast Time 28.9 24.5-34.5 SEC Test 03/28/24 19:09 Range/Units Amylase Level 51 30-118 U/L Lipase 38 12-53 U/L Microbiology Date/Time Source Procedure Growth Status 04/13/24 16:07 Blood Blood Culture - Preliminary NO GROWTH AFTER 72 HOURS OF INCUBATION. Resulted 04/02/24 17:16 Nose MRSA Screen - Final Complete 04/02/24 13:00 Gallbladder Fluid Anaerobic Culture - Final Complete 04/02/24 13:00 Aerobic Culture - Final Pseudomonas aeruginosa Enterobacter aerogenes Complete Assessment Oliguric acute kidney injury Status post cholecystectomy Type 2 diabetes History of CVA Hyperlipidemia Plan/Recommendation Continue with IV fluids Recommend Velazquez catheter placement Discontinue Protonix Start Pepcid 20 mg daily Daily labs Strict Is&Os Plan discussed with: CIERRA Romeo MD Apr 16, 2024 18:49
--- NOTE | 2024-04-16 23:48 | DVHPN2 ---
Progress Note - Dictate Date Seen: Apr 16, 2024 Has the PT tested + for MRSA If YES, has PT been informed?: No Medical Necessity Reason Pt with a Central, PICC or Fol: No Subjective Mr. Corcoran is a 68 years old right-handed gentleman with a history of hypertension, diabetes, dyslipidemia, coronary artery disease, heart attack, atrial fibrillation, right carotid occlusion, stroke with residual left-sided weakness/bad defined, gallstone, the patient was transferred [facility] on 03/28/24 with a chief company of abdominal pain, deteriorating of his general condition. I have seen and examined the patient, I have discussed with his nurse, he is awake, oriented to person, speech is much better today he still can not move the left arm than leg Stable H/H WBC/HB/PLT/MCV, 04/14/2024: 17.3/9.9/381/90.6 04/15/2024: 16.4/9.5/374/89.1 BUN/CR, 04/14/2024: 12/1.58 Liver function tests, 04/14/2024: Unremarkable Carotid Doppler 04/15/2024: 1. Occlusion of proximal right ICA. 2. No hemodynamically significant stenosis in left carotid system. Echocardiogram, 04/01/2024 DILATED ALL CARDIAC CHAMBERS MODERATELY DILATED LV MODERATE DEGREE LV GLOBAL HYPOKINESIS LV EF IS ONLY 25% NORMAL VALVES DYSKINESIS OF IVS NO EFFUSION DILATED CARDIOMYOPATHY WITH MODERATE DEGREE LV SYSTOLIC DYSFUNCTION MRI head, 04/15/2024: 1. There are multiple scattered small and patchy foci of restricted diffusion involving the right frontal, parietal, temporal and occipital lobes consistent with multiple areas of acute to subacute infarcts. There is no evidence of acute hemorrhage. There is no significant edema or mass effect. 2. There are small chronic cortical infarcts in the right parietal and occipital lobes. 3. Mild chronic microvascular white matter ischemic changes vital signs Vital Sign Date Time Temp Pulse Resp B/P (MAP) Pulse Ox O2 Delivery O2 Flow Rate FiO2 04/16/24 21:35 104 18 127/73 04/16/24 20:52 98.4 97 98.4 04/16/24 07:30 Room Air* 0 21 Total Intake and Output 04/15/24 04/15/24 04/16/24 15:00 23:00 07:00 Intake Total 920 ml 787.5 ml 400 ml Output Total 30 ml 40 ml Balance 890 ml 747.5 ml 400 ml medications Current Medications Medications Dose Ordered Sig/Aruna Route Start Time Stop Time Status Last Admin Dose Admin Ceftriaxone Sodium/Dextrose 50 ml @ 50 mls/hr DAILY@2100 IV 04/04/24 21:00 Cancel Metronidazole 100 ml @ 100 mls/hr Q8HR IV 04/04/24 06:00 Cancel Atorvastatin Calcium 40 mg HS PO 04/04/24 22:00 04/16/24 21:21 40 MG Aspirin 81 mg DAILY PO 04/04/24 10:00 04/16/24 08:57 81 MG Diagnostic Test (Pha) 1 strip ACHS 04/04/24 07:00 04/16/24 21:21 1 STRIP Insulin Human Regular HS SC 04/04/24 22:00 04/16/24 21:38 4 UNITS Insulin Human Regular AC SC 04/04/24 07:00 04/16/24 17:45 2 UNITS Dextrose 50 ml UD PRN IV 04/03/24 22:45 Piperacillin Sod/ Tazobactam Sod 100 ml @ 25 mls/hr Q8HR@0100,0900,1700 IV 04/04/24 01:00 04/16/24 17:35 25 MLS/HR Docusate Sodium 100 mg BIDP PO 04/05/24 10:00 04/16/24 21:21 100 MG Ondansetron HCl 4 mg Q6HPRN PRN IV 04/11/24 00:45 Hydromorphone HCl 0.2 mg Q4HPRN PRN IV 04/11/24 01:15 Hydromorphone HCl 0.4 mg Q4HPRN PRN IV 04/11/24 01:15 04/16/24 21:35 0.4 MG Acetaminophen/ Hydrocodone Bitart 1 tab Q4HPRN PRN PO 04/11/24 01:15 04/15/24 21:25 1 TAB Vancomycin HCl 0 ml @ 0 mls/hr UD IV 04/12/24 14:45 Cancel Dextrose/Sodium Chloride 1,000 ml @ 150 mls/hr Q6H40M IV 04/16/24 06:30 04/16/24 19:59 150 MLS/HR Clopidogrel Bisulfate 75 mg DAILY PO 04/15/24 23:25 05/05/24 23:00 04/16/24 08:58 75 MG Famotidine 20 mg EOD PO 04/17/24 10:00 objective General: the patient is well developed and nourished. No acute distress. MENTAL STATUS: Awake and alert. Oriented to person, place SPEECH, LANGUAGE, HIGHER CORTICAL FUNCTION: no aphasia, he was mild dysathria. CRANIAL NERVES: Dense left homonymous hemianopsia Pupils are equal, round and reactive. EOMs full and conjugate. Facial sensation intact in all three divisions bilaterally. Mandibular strength intact. Left facial weakness of upper motor neuron pattern SENSATION: Sensation to touch and pinprick is normal. MOTOR: Normal tone in the upper and lower extremity. Normal muscle bulk. No fasciculations. No abnormal movements or posturing. Muscle strength of the major groups in the right extremities is: Upper: 5/5, Lower: 3-4/5. Muscle strength of the major groups in the lower extremities: Upper extremity: 2/5. Lower extremity: 1-2/5 REFLEXES: Deep tendon reflexes are symmetrical. No pathological reflexes. CEREBELLAR/COORDINATION: Deferred GAIT/STATION: deferred laboratory and microbiology Laboratory Tests 04/16/24 07:15 Test 04/16/24 07:15 Range/Units Serum Glucose 150 H 74-106 mg/dL Problem List Worsened slurred speech, left facial drooping, to rule out acute stroke Chronic stroke with residual left-sided hemiparesis, bed bound Left homonymous hemianopsia, secondary to stroke Atrial fibrillation Assessment/Plan Monitoring Supportive treatment Telemetry Lipid profile Resume Lovenox 70 mg subQ b.i.d. D/C Plavix 75 mg daily D/C Aspirin 81 mg daily Lipitor 40 mg daily Consider Lovenox/Eliquis 2.5mg Bid if OK with Dr. Barroso GI prophylax Cardiology on case Infectious disease on case More recommendation per clinical course This medical document was created using an electronic medical record system with [employer] dictation system. Although this document has been carefully reviewed, there may still be some phonetic and typographical errors. These areas are purely typographical due to imperfections of the software programs, and do not reflect any compromise in the patient's medical care. Prognosis poor Dietary Evaluation Review Recommendations by RD: Dietary education by RD Comments: 1. Recommend timely diet advancement to Low Fat diet s/p cholecystectomy 2. May consider Ensure Clear supplements TID in the interim appropriate for current diet order to optimize nutrition (250 kcal, 8 gm pro, 0 gm fat/carton) 3. Consulted for TPN/EN: TPN is not clinically indicated at this time due to functional GI tract; should nutrition support be desired, would recommend tube feeding with peptide-based, hydrolyzed formula for improved tolerance - however, advise oral diet trial prior to initiating nutrition support measures Expected Outcomes/Goals: Diet advancement, improved nutritional status, post-op healing Plan discussed with: Other Total Time (mins): 35 RADHA CORNEJO MD Apr 16, 2024 23:48
[2024-04-17] VITALS (8 sets, daily range): BP systolic 101–136; BP diastolic 52–93; PULSE 67–139; RESP 16–22; TEMP 97.5–98.8; O2SAT 90–98
[2024-04-17] MEDS: ENOXAPARIN SOD 100 MG/1 ML SYRINGE SC ONE (00:40)
[2024-04-17 08:07] LABS: PSA Free 0.08 ng/mL; Prostate Specific Antigen 0.5 ng/mL (0.0-4.0)
[2024-04-17] MEDS ORDERED: ENOXAPARIN SOD 100 MG/1 ML SYRINGE SC SCH (10:00)
[2024-04-17] MEDS: FAMOTIDINE 20 MG TAB PO SCH (10:00)
[2024-04-17] MEDS: APIXABAN 5 MG TAB PO SCH (10:30)
--- NOTE | 2024-04-17 13:18 | DVHPN2 ---
Progress Note - Dictate Date Seen: Apr 17, 2024 Has the PT tested + for MRSA If YES, has PT been informed?: No Medical Necessity Reason Pt with a Central, PICC or Fol: No Subjective Patient was seen and evaluated in follow up. Patient is comfortable in bed. Patient unable to move LLE ans LUE. BS are WNL. Telemetry reviewed. vital signs Vital Sign Date Time Temp Pulse Resp B/P (MAP) Pulse Ox O2 Delivery O2 Flow Rate FiO2 04/17/24 08:25 98.8 95 17 109/67 (81) 96 98.8 04/16/24 20:00 Room Air* 0 21 Total Intake and Output 04/16/24 04/16/24 04/17/24 15:00 23:00 07:00 Intake Total 215 ml 300 ml Balance 215 ml 300 ml medications Current Medications Medications Dose Ordered Sig/Aruna Route Start Time Stop Time Status Last Admin Dose Admin Ceftriaxone Sodium/Dextrose 50 ml @ 50 mls/hr DAILY@2100 IV 04/04/24 21:00 Cancel Metronidazole 100 ml @ 100 mls/hr Q8HR IV 04/04/24 06:00 Cancel Atorvastatin Calcium 40 mg HS PO 04/04/24 22:00 04/16/24 21:21 40 MG Diagnostic Test (Pha) 1 strip ACHS 04/04/24 07:00 04/17/24 07:01 1 STRIP Insulin Human Regular HS SC 04/04/24 22:00 04/16/24 21:38 4 UNITS Insulin Human Regular AC SC 04/04/24 07:00 04/16/24 17:45 2 UNITS Dextrose 50 ml UD PRN IV 04/03/24 22:45 Piperacillin Sod/ Tazobactam Sod 100 ml @ 25 mls/hr Q8HR@0100,0900,1700 IV 04/04/24 01:00 04/17/24 00:42 25 MLS/HR Docusate Sodium 100 mg BIDP PO 04/05/24 10:00 04/16/24 21:21 100 MG Ondansetron HCl 4 mg Q6HPRN PRN IV 04/11/24 00:45 Hydromorphone HCl 0.2 mg Q4HPRN PRN IV 04/11/24 01:15 Hydromorphone HCl 0.4 mg Q4HPRN PRN IV 04/11/24 01:15 04/17/24 04:10 0.4 MG Acetaminophen/ Hydrocodone Bitart 1 tab Q4HPRN PRN PO 04/11/24 01:15 04/15/24 21:25 1 TAB Vancomycin HCl 0 ml @ 0 mls/hr UD IV 04/12/24 14:45 Cancel Dextrose/Sodium Chloride 1,000 ml @ 150 mls/hr Q6H40M IV 04/16/24 06:30 04/16/24 19:59 150 MLS/HR Famotidine 20 mg EOD PO 04/17/24 10:00 Apixaban 5 mg BID PO 04/17/24 10:30 objective GENERAL: Awake, alert, oriented. LUNGS: Clear. CARDIOVASCULAR: Heart sounds are good. ABDOMEN: Soft. RUQ TTP. laboratory and microbiology Laboratory Tests 04/16/24 07:15 Test 04/16/24 07:15 Range/Units Serum Glucose 150 H 74-106 mg/dL Problem List Acute RUQ abdominal pain. Acute cholecystitis. Recent history of choledocholithiasis and obstructive jaundice. Status post percutaneous transhepatic biliary drainage. Hypovolemia. Right CVA with left-sided hemiparesis. Diabetes. Hypertension. Noncompliance with medical recommendations. Assessment/Plan Continued all current supportive medical care. Dilaudid and [place] for pain management. Eliquis. Lipitor. IV antibiotics as ordered. GI prophylactics. Additional plan as per the hospital course. Dietary Evaluation Review Recommendations by RD: Dietary education by RD Comments: 1. Recommend timely diet advancement to Low Fat diet s/p cholecystectomy 2. May consider Ensure Clear supplements TID in the interim appropriate for current diet order to optimize nutrition (250 kcal, 8 gm pro, 0 gm fat/carton) 3. Consulted for TPN/EN: TPN is not clinically indicated at this time due to functional GI tract; should nutrition support be desired, would recommend tube feeding with peptide-based, hydrolyzed formula for improved tolerance - however, advise oral diet trial prior to initiating nutrition support measures Expected Outcomes/Goals: Diet advancement, improved nutritional status, post-op healing Plan discussed with: Patient ANITRA HOOD MD Apr 17, 2024 11:44
--- NOTE | 2024-04-17 17:27 | DVHPN2 ---
Progress Note - Dictate Date Seen: Apr 17, 2024 Has the PT tested + for MRSA If YES, has PT been informed?: No Medical Necessity Reason Pt with a Central, PICC or Fol: No Subjective no acute issues overnight vital signs Vital Sign Date Time Temp Pulse Resp B/P (MAP) Pulse Ox O2 Delivery O2 Flow Rate FiO2 04/17/24 16:18 98.2 118 17 136/89 (105) 96 98.2 04/17/24 08:00 Room Air* 0 21 Total Intake and Output 04/16/24 04/16/24 04/17/24 15:00 23:00 07:00 Intake Total 215 ml 300 ml Balance 215 ml 300 ml medications Current Medications Medications Dose Ordered Sig/Aruna Route Start Time Stop Time Status Last Admin Dose Admin Ceftriaxone Sodium/Dextrose 50 ml @ 50 mls/hr DAILY@2100 IV 04/04/24 21:00 Cancel Metronidazole 100 ml @ 100 mls/hr Q8HR IV 04/04/24 06:00 Cancel Atorvastatin Calcium 40 mg HS PO 04/04/24 22:00 04/16/24 21:21 40 MG Diagnostic Test (Pha) 1 strip ACHS 04/04/24 07:00 04/17/24 11:30 1 STRIP Insulin Human Regular HS SC 04/04/24 22:00 04/16/24 21:38 4 UNITS Insulin Human Regular AC SC 04/04/24 07:00 04/17/24 13:32 2 UNITS Dextrose 50 ml UD PRN IV 04/03/24 22:45 Piperacillin Sod/ Tazobactam Sod 100 ml @ 25 mls/hr Q8HR@0100,0900,1700 IV 04/04/24 01:00 04/17/24 11:47 25 MLS/HR Docusate Sodium 100 mg BIDP PO 04/05/24 10:00 04/16/24 21:21 100 MG Ondansetron HCl 4 mg Q6HPRN PRN IV 04/11/24 00:45 Hydromorphone HCl 0.2 mg Q4HPRN PRN IV 04/11/24 01:15 Hydromorphone HCl 0.4 mg Q4HPRN PRN IV 04/11/24 01:15 04/17/24 04:10 0.4 MG Acetaminophen/ Hydrocodone Bitart 1 tab Q4HPRN PRN PO 04/11/24 01:15 04/15/24 21:25 1 TAB Vancomycin HCl 0 ml @ 0 mls/hr UD IV 04/12/24 14:45 Cancel Dextrose/Sodium Chloride 1,000 ml @ 150 mls/hr Q6H40M IV 04/16/24 06:30 04/17/24 13:26 150 MLS/HR Famotidine 20 mg EOD PO 04/17/24 10:00 Apixaban 5 mg BID PO 04/17/24 10:30 objective resting Lungs: Bilateral good air entry CVS: S1, S2 regular rate rhythm Abdomen: Soft, bowel sounds present SHADE BANDER: left sided weakness Extremities: No edema laboratory and microbiology Laboratory Tests 04/16/24 07:15 Test 04/16/24 07:15 Range/Units Serum Glucose 150 H 74-106 mg/dL Problem List Acute kidney injury Status post cholecystectomy Type 2 diabetes History of CVA Hyperlipidemia Assessment/Plan UOP not being documented because of incontinence . Velazquez cath Labs in AM Patient refusing some of his meds as per RN Dietary Evaluation Review Recommendations by RD: Dietary education by RD Comments: 1. Recommend timely diet advancement to Low Fat diet s/p cholecystectomy 2. May consider Ensure Clear supplements TID in the interim appropriate for current diet order to optimize nutrition (250 kcal, 8 gm pro, 0 gm fat/carton) 3. Consulted for TPN/EN: TPN is not clinically indicated at this time due to functional GI tract; should nutrition support be desired, would recommend tube feeding with peptide-based, hydrolyzed formula for improved tolerance - however, advise oral diet trial prior to initiating nutrition support measures Expected Outcomes/Goals: Diet advancement, improved nutritional status, post-op healing Plan discussed with: Other CIERRA NAVARRETE MD Apr 17, 2024 17:27
--- NOTE | 2024-04-17 18:51 | DVHPN2 ---
Progress Note - Dictate Date Seen: Apr 16, 2024 Has the PT tested + for MRSA If YES, has PT been informed?: No Medical Necessity Reason Pt with a Central, PICC or Fol: No Medical Necessity Reason R CVA Expressive aphasia Subjective The patient is seen at [facility] on a tele [place] The patient noted to worsening of nasolabial fold droop left side He is suspected to have developing recurrence of R MCA * Received MRI of head-remarkable for multiple subacute and acute CVA * Seen by Dr. Morales neurology-case discussed with him * Also being evaluated for acute kidney injury-serum creatinine up at 1.79 mg/dL * Received ultrasound of renals-shows layering of debris at posterior wall of bladder No hydronephrosis was noted * Continued patient on IV hydration * Requested nephrology consultation * Continued patient on IV antibiotics in consult with Dr. Raul Barroso * Receives parenteral analgesics in smaller doses at less frequent basis * Currently followed by Dr. Adriel Mcarthur cardiology Overnight events are reviewed through medical chart and case discussion with patient's assigned RN while making rounds on patient on the day of service vital signs Vital Signs Date Time Temp Pulse Resp B/P (MAP) Pulse Ox O2 Delivery O2 Flow Rate FiO2 04/16/24 13:18 99.0 95 18 122/71 (88) 97 99.0 04/15/24 20:00 Room Air* 0 21 Physical Exam Total Intake and Output 04/16/24 04/16/24 15:00 23:00 Intake Total 215 ml Balance 215 ml medications Current Medications Medications Dose Ordered Sig/Aruna Route Start Time Stop Time Status Last Admin Dose Admin Ceftriaxone Sodium/Dextrose 50 ml @ 50 mls/hr DAILY@2100 IV 04/04/24 21:00 Cancel Metronidazole 100 ml @ 100 mls/hr Q8HR IV 04/04/24 06:00 Cancel Atorvastatin Calcium 40 mg HS PO 04/04/24 22:00 04/16/24 21:21 40 MG Diagnostic Test (Pha) 1 strip ACHS 04/04/24 07:00 04/17/24 17:28 1 STRIP Insulin Human Regular HS SC 04/04/24 22:00 04/16/24 21:38 4 UNITS Insulin Human Regular AC SC 04/04/24 07:00 04/17/24 17:28 2 UNITS Dextrose 50 ml UD PRN IV 04/03/24 22:45 Piperacillin Sod/ Tazobactam Sod 100 ml @ 25 mls/hr Q8HR@0100,0900,1700 IV 04/04/24 01:00 04/17/24 17:26 25 MLS/HR Docusate Sodium 100 mg BIDP PO 04/05/24 10:00 04/16/24 21:21 100 MG Ondansetron HCl 4 mg Q6HPRN PRN IV 04/11/24 00:45 Hydromorphone HCl 0.2 mg Q4HPRN PRN IV 04/11/24 01:15 Hydromorphone HCl 0.4 mg Q4HPRN PRN IV 04/11/24 01:15 04/17/24 04:10 0.4 MG Acetaminophen/ Hydrocodone Bitart 1 tab Q4HPRN PRN PO 04/11/24 01:15 04/15/24 21:25 1 TAB Vancomycin HCl 0 ml @ 0 mls/hr UD IV 04/12/24 14:45 Cancel Dextrose/Sodium Chloride 1,000 ml @ 150 mls/hr Q6H40M IV 04/16/24 06:30 04/17/24 13:26 150 MLS/HR Famotidine 20 mg EOD PO 04/17/24 10:00 Apixaban 5 mg BID PO 04/17/24 10:30 objective Physical Exam General appearance: Well-developed, well-nourished middle-aged male Awake alert oriented x2 Reports post surgical pains Head: Normocephalic nontraumatic Eyes: EOMI, ALIE, sclera nonicteric, conjunctive- pale ENT: No congestion, NSL bilateral symmetrical, oral mucosa wet Neck: Supple, carotid upstroke +2, trachea midline, JVD 2 cm No goiter/stridor, no lymph nodes JVD-3 cm, C spine- Full ROM No use of sternomastoid muscle Chest: Bilateral symmetrical expansions, no costochondral tenderness Lungs: clear breath sounds all over except reduced at bases CVS: PMI-1 cm medial to L MCL in fifth ICS , S1-S2 NSR no S3 GI: Abdomen soft, obese, bowel sounds hypoactive RUQ-postsurgical wound -clean minimally tender GLORIA drain-serous discharge No RUQ tenderness, no rebound tenderness No hepatosplenomegaly, no mass no hernia , : No CVA tenderness, no bladder mass palpable, genitalia-NE SKIN: Turgor dry, color pink, no rash, no icterus, No varicosity, no ulcers or wounds EXTs: No edema, color pink, no rash, no ecchymosis distal pulses +2 capillary refill <2 seconds, No open wounds JOINTS; full range of motion BACK: No apparent lumbosacral spinal muscle tenderness, LYMPH NODES: No cervical, axillary or inguinal lymph nodes Neuro: Awake alert oriented x2 speech nonfluent expressive aphasia Left-sided hemiparesis motor strength three to 4/5 Sensory-changes of DPN as before PSYCH: Affect mildly depressed-denies suicidal ideation laboratory and microbiology Laboratory Tests 04/16/24 07:15 Test 04/16/24 07:15 Range/Units Serum Glucose 150 H 74-106 mg/dL EXAMINATION: MRI BRAIN HEAD WO CONTRAST INDICATION: R/O STROKE COMPARISON: None FINDINGS: There are multiple scattered small and patchy foci of restricted diffusion involving the right frontal, parietal, temporal and occipital lobes. There is patchy restricted diffusion in the splenium of the corpus callosum and along the right centrum semiovale. The findings are consistent with multiple areas of acute to subacute infarcts. There is no evidence of acute hemorrhage. There is no significant edema or mass effect. There are small chronic cortical infarcts in the right parietal lobe and in the right occipital lobe. There are mild chronic microvascular white matter ischemic changes. There is no hydrocephalus or extra-axial fluid collection. The visualized intracranial vasculature demonstrates appropriate flow-voids. The sagittal midline structures appear unremarkable. The craniocervical junction is within normal limits. The calvarium demonstrates normal marrow signal. The paranasal sinuses and mastoid air cells are clear. IMPRESSION: 1. There are multiple scattered small and patchy foci of restricted diffusion involving the R frontal, parietal, temporal and occipital lobes consistent with multiple areas of acute to subacute infarcts. There is no evidence of acute hemorrhage. There is no significant edema or mass effect. 2. There are small chronic cortical infarcts in the right parietal and occipital lobes. 3. Mild chronic microvascular white matter ischemic changes. HS:Y Problem List 1. Acute R MCA CVA with L hemiparesis and expressive aphasia a. R ICA occlusion 2. Status post cholecystectomy Postoperative day 14 Evacuation of biloma, drainage of abscess and lysis of adhesions 3. Status post Acute cholecystitis Complicated by biloma, abscess and adhesions 4. Acute kidney injury From A intravascular depletion B. Post obstructive nephropathy- is ruled out 5. Acute on chronic iron-deficiency anemia from a. postsurgical blood loss vs hemodilution 6. Fairly well-controlled diabetes and hypertension 2' Diagnosis/Comorbidities Noncompliance with medical recommendations Doppler lower Assessment/Plan Medical decision making The patient is seen on a postop day 14 of his receiving laparoscopic cholecystectomy Status post evacuation of biloma, drainage of the abscess * Continued on IV Zosyn in consult with Dr. Raul Barroso * Remains hemodynamically stable and afebrile * Noted serous drainage through the GLORIA drain-total amount 70 mL * Continued on IV hydration * Seen by Dr. Renner Nephrology. Her input and recommendations are being followed * Also noted symptoms of possible recurrence of R CVA with left hemiparesis * Received MRI of head which reflects multi-infarct dementia Noted complete occlusion of R ICA through carotid artery duplex study Carotid artery disease is the pre-existent finding * Continue tapering patient off parenteral analgesics for postsurgical pains * Continue soft diet with addition of supplements * Currently followed by Dr. Raul Barroso as Infectious Disease and Dr. Adriel Mcarthur from Cardiology Treatment Plans Continue hospital stay on telemetry Reviewed results of MRI and carotid artery duplex study Reviewed the input of of Dr. Morales neurology Continue IV hydration at 100 mL Repeat BMP in the morning Continue small doses of parenteral analgesics for postsurgical pains Continue IV Zosyn Reviewed input of Dr. Renner Nephrology consult Reviewed input of Dr. Raul Barroso ,EZE and Dr. Adriel Mcarthur Cardiology Case discussed with Dr. Wendy Hernandez Reviewed input of GLASS EDGER-GI consult VTE precautions Update patient The patient and and his were well informed by me about 1. Clinical impression, treatment plans, side effects of medications, course of the disease and fair to guarded prognosis 2. All patient's question/ concerns raised by patient are satisfactorily addressed by me Total time spent 45 minutes 40% of time spent interviewing the patient and physical exam 30% of time spent in gathering lab datas and imaging studies 30 % of time is spent in patient education Prognosis Fair to guarded Dietary Evaluation Review Recommendations by RD: Dietary education by RD Comments: 1. Recommend timely diet advancement to Low Fat diet s/p cholecystectomy 2. May consider Ensure Clear supplements TID in the interim appropriate for current diet order to optimize nutrition (250 kcal, 8 gm pro, 0 gm fat/carton) 3. Consulted for TPN/EN: TPN is not clinically indicated at this time due to functional GI tract; should nutrition support be desired, would recommend tube feeding with peptide-based, hydrolyzed formula for improved tolerance - however, advise oral diet trial prior to initiating nutrition support measures Expected Outcomes/Goals: Diet advancement, improved nutritional status, post-op healing Plan discussed with: Spouse Total Time (mins): 45 ALLA BARROSO MD Apr 17, 2024 18:51
--- NOTE | 2024-04-17 18:51 | DVHPN2 ---
Progress Note - Dictate Date Seen: Apr 17, 2024 Has the PT tested + for MRSA If YES, has PT been informed?: No Medical Necessity Reason Pt with a Central, PICC or Fol: No Medical Necessity Reason R CVA CARMEL Subjective The patient is seen at Rm 288 A on a tele [place] The patient is noted to worsening of L nasolabial fold droop , expressive aphasia From R MCA CVA * MRI abnormal for multiple acute to subacute infarcts * Continued patient on Eliquis * Patient is being followed by Dr. Morales * Also being evaluated for acute kidney injury-serum creatinine improved but still high at 1.63 mg/dL * Received ultrasound of renals-shows layering of debris at posterior wall of bladder No hydronephrosis was noted * Continued patient on IV hydration * Reviewed input of Dr. Gonzales nephrology * Recovering from postsurgical pains following to laparoscopic cholecystectomy * Receives parenteral analgesics in smaller doses at less frequent basis * Receives IV Zosyn as per consult with Dr. Raul Barroso infectious Disease * Currently followed by Dr. Adriel Mcarthur cardiology Overnight events are reviewed through medical chart and case discussion with patient's assigned RN while making rounds on patient on the day of service vital signs Vital Sign Date Time Temp Pulse Resp B/P (MAP) Pulse Ox O2 Delivery O2 Flow Rate FiO2 04/17/24 16:18 98.2 118 17 136/89 (105) 96 98.2 04/17/24 08:00 Room Air* 0 21 Total Intake and Output 04/16/24 04/16/24 04/17/24 15:00 23:00 07:00 Intake Total 215 ml 300 ml Balance 215 ml 300 ml medications Current Medications Medications Dose Ordered Sig/Aruna Route Start Time Stop Time Status Last Admin Dose Admin Ceftriaxone Sodium/Dextrose 50 ml @ 50 mls/hr DAILY@2100 IV 04/04/24 21:00 Cancel Metronidazole 100 ml @ 100 mls/hr Q8HR IV 04/04/24 06:00 Cancel Atorvastatin Calcium 40 mg HS PO 04/04/24 22:00 04/16/24 21:21 40 MG Diagnostic Test (Pha) 1 strip ACHS 04/04/24 07:00 04/17/24 17:28 1 STRIP Insulin Human Regular HS SC 04/04/24 22:00 04/16/24 21:38 4 UNITS Insulin Human Regular AC SC 04/04/24 07:00 04/17/24 17:28 2 UNITS Dextrose 50 ml UD PRN IV 04/03/24 22:45 Piperacillin Sod/ Tazobactam Sod 100 ml @ 25 mls/hr Q8HR@0100,0900,1700 IV 04/04/24 01:00 04/17/24 17:26 25 MLS/HR Docusate Sodium 100 mg BIDP PO 04/05/24 10:00 04/16/24 21:21 100 MG Ondansetron HCl 4 mg Q6HPRN PRN IV 04/11/24 00:45 Hydromorphone HCl 0.2 mg Q4HPRN PRN IV 04/11/24 01:15 Hydromorphone HCl 0.4 mg Q4HPRN PRN IV 04/11/24 01:15 04/17/24 04:10 0.4 MG Acetaminophen/ Hydrocodone Bitart 1 tab Q4HPRN PRN PO 04/11/24 01:15 04/15/24 21:25 1 TAB Vancomycin HCl 0 ml @ 0 mls/hr UD IV 04/12/24 14:45 Cancel Dextrose/Sodium Chloride 1,000 ml @ 150 mls/hr Q6H40M IV 04/16/24 06:30 04/17/24 13:26 150 MLS/HR Famotidine 20 mg EOD PO 04/17/24 10:00 Apixaban 5 mg BID PO 04/17/24 10:30 objective Physical Exam General appearance: Well-developed, well-nourished middle-aged male Awake alert oriented x2 Reports post surgical pains Head: Normocephalic nontraumatic Eyes: EOMI, ALIE, sclera nonicteric, conjunctive- pale ENT: No congestion, NSL bilateral symmetrical, oral mucosa wet Neck: Supple, carotid upstroke +2, trachea midline, JVD 2 cm No goiter/stridor, no lymph nodes JVD-3 cm, C spine- Full ROM No use of sternomastoid muscle Chest: Bilateral symmetrical expansions, no costochondral tenderness Lungs: clear breath sounds all over except reduced at bases CVS: PMI-1 cm medial to L MCL in fifth ICS , S1-S2 NSR no S3 GI: Abdomen soft, obese, bowel sounds hypoactive RUQ-postsurgical wound -clean minimally tender GLORIA drain-serous discharge No RUQ tenderness, no rebound tenderness No hepatosplenomegaly, no mass no hernia , : No CVA tenderness, no bladder mass palpable, genitalia-NE SKIN: Turgor dry, color pink, no rash, no icterus, No varicosity, no ulcers or wounds EXTs: No edema, color pink, no rash, no ecchymosis distal pulses +2 capillary refill <2 seconds, No open wounds JOINTS; full range of motion BACK: No apparent lumbosacral spinal muscle tenderness, LYMPH NODES: No cervical, axillary or inguinal lymph nodes Neuro: Awake alert oriented x2 speech nonfluent expressive aphasia Left-sided hemiparesis motor strength three to 4/5 Sensory-changes of DPN as before PSYCH: Affect mildly depressed-denies suicidal ideation laboratory and microbiology Laboratory Tests 04/16/24 07:15 Test 04/16/24 07:15 Range/Units Serum Glucose 150 H 74-106 mg/dL Problem List 1. 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 Status post laparoscopic cholecystectomy...................... Postoperative day 14 Evacuation of biloma, drainage of abscess and lysis of adhesions Status post Acute cholecystitis Complicated by biloma, abscess and adhesions 3. Acute kidney injury From A intravascular depletion B. Post obstructive nephropathy- is ruled out 4. Acute on chronic iron-deficiency anemia from a. postsurgical blood loss vs hemodilution 5. Fairly well-controlled diabetes and hypertension 2' Diagnosis/Comorbidities Noncompliance with medical recommendations Doppler lower Assessment/Plan Medical decision making The patient is seen on a postop day 14 of his receiving laparoscopic cholecystectomy Including evacuation of by biloma, abscess * Remains hemodynamically stable and afebrile * Continued on IV antibiotics-IV Zosyn as per recommendation of Dr. Raul Barroso * Currently receives IV hydration for management of CARMEL * Serum creatinine has improved down to 1.63 mg/dL * Currently followed by Dr. Renner * Also noted symptoms of possible recurrence of R CVA with left hemiparesis * Received MRI of head which reflects multiple infarcts affecting R frontal Temporal-currently followed by Dr. Morales with whom I had a case discussion We will consider continuing Eliquis Noted complete occlusion of R ICA through carotid artery duplex study Carotid artery disease is the pre-existent finding * Patient is noted to have expressive aphasia and confused mental status * Continue patient on oral narcotic analgesics for pain management * Continue soft diet with addition of supplements * Currently followed by Dr. Adriel Mcarthur from Cardiology Treatment Plans Continue hospital stay on telemetry Reviewed results of MRI and carotid artery duplex study Reviewed the input of of Dr. Morales neurology Continue Eliquis Continue IV hydration at 100 mL Repeat BMP in the morning Tapering patient off parenteral analgesics for postsurgical pains Continue IV Zosyn in consult with Dr. Raul Barroso Continue Dr. Adriel Mcarthur Cardiology Refer to social Service for discharge planning Reviewed input of HIM ASSISTANT-GI consult VTE precautions Update patient The patient and and his were well informed by me about 1. Clinical impression, treatment plans, side effects of medications, course of the disease and fair to guarded prognosis 2. All patient's question/ concerns raised by patient are satisfactorily addressed by me Total time spent 45 minutes 40% of time spent interviewing the patient and physical exam 30% of time spent in gathering lab datas and imaging studies 30 % of time is spent in patient education Prognosis Fair to guarded Dietary Evaluation Review Recommendations by RD: Dietary education by RD Comments: 1. Recommend timely diet advancement to Low Fat diet s/p cholecystectomy 2. May consider Ensure Clear supplements TID in the interim appropriate for current diet order to optimize nutrition (250 kcal, 8 gm pro, 0 gm fat/carton) 3. Consulted for TPN/EN: TPN is not clinically indicated at this time due to functional GI tract; should nutrition support be desired, would recommend tube feeding with peptide-based, hydrolyzed formula for improved tolerance - however, advise oral diet trial prior to initiating nutrition support measures Expected Outcomes/Goals: Diet advancement, improved nutritional status, post-op healing Plan discussed with: Spouse Total Time (mins): 45 ALLA BARROSO MD Apr 17, 2024 18:51
[2024-04-17 22:05] LABS: Chloride 106 mmol/L (98-107); Sodium 141 mmol/L (136-145)
[2024-04-17 22:06] LABS: Anion Gap 14 (5-15); Carbon Dioxide 21 mmol/L (20-31)
[2024-04-17 22:07] LABS: Calcium 9.5 mg/dL (8.7-10.4)
[2024-04-17 22:11] LABS: BUN/Creatinine Ratio 9.2 (10.0-20.0); Blood Urea Nitrogen 15 mg/dL (9-23)
[2024-04-17 22:12] LABS: Glucose 135 mg/dL (74-106)
--- NOTE | 2024-04-17 22:28 | DVHPN2 ---
Progress Note - Dictate Date Seen: Apr 17, 2024 Has the PT tested + for MRSA If YES, has PT been informed?: No Medical Necessity Reason Pt with a Central, PICC or Fol: No Subjective Mr. Corcoran is a 68 years old right-handed gentleman with a history of hypertension, diabetes, dyslipidemia, coronary artery disease, heart attack, atrial fibrillation, right carotid occlusion, stroke with residual left-sided weakness/bad defined, gallstone, the patient was transferred from his [facility] to [facility] on 03/28/24 with a chief company of abdominal pain, deteriorating of his general condition. I have seen and examined the patient, I have discussed with his nurse, he is awake, oriented to person, likely to place as well, speech is still slurry, he can move the left extremities slightly WBC/HB/PLT/MCV, 04/14/2024: 17.3/9.9/381/90.6 04/15/2024: 16.4/9.5/374/89.1 BUN/CR, 04/14/2024: 12/1.58 Liver function tests, 04/14/2024: Unremarkable TG/HDL/LDL/HDL, 03/2024: 116/80/47/16 Carotid Doppler 04/15/2024: 1. Occlusion of proximal right ICA. 2. No hemodynamically significant stenosis in left carotid system. Echocardiogram, 04/01/2024 DILATED ALL CARDIAC CHAMBERS MODERATELY DILATED LV MODERATE DEGREE LV GLOBAL HYPOKINESIS LV EF IS ONLY 25% NORMAL VALVES DYSKINESIS OF IVS NO EFFUSION DILATED CARDIOMYOPATHY WITH MODERATE DEGREE LV SYSTOLIC DYSFUNCTION MRI head, 04/15/2024: 1. There are multiple scattered small and patchy foci of restricted diffusion involving the right frontal, parietal, temporal and occipital lobes consistent with multiple areas of acute to subacute infarcts. There is no evidence of acute hemorrhage. There is no significant edema or mass effect. 2. There are small chronic cortical infarcts in the right parietal and occipital lobes. 3. Mild chronic microvascular white matter ischemic changes vital signs Vital Sign Date Time Temp Pulse Resp B/P (MAP) Pulse Ox O2 Delivery O2 Flow Rate FiO2 04/17/24 21:00 98.0 139 22 128/93 (105) 98 98.0 04/17/24 20:00 Room Air* 0 21 Total Intake and Output 04/16/24 04/16/24 04/17/24 15:00 23:00 07:00 Intake Total 215 ml 300 ml Balance 215 ml 300 ml medications Current Medications Medications Dose Ordered Sig/Aruna Route Start Time Stop Time Status Last Admin Dose Admin Ceftriaxone Sodium/Dextrose 50 ml @ 50 mls/hr DAILY@2100 IV 04/04/24 21:00 Cancel Metronidazole 100 ml @ 100 mls/hr Q8HR IV 04/04/24 06:00 Cancel Atorvastatin Calcium 40 mg HS PO 04/04/24 22:00 04/17/24 21:47 40 MG Diagnostic Test (Pha) 1 strip ACHS 04/04/24 07:00 04/17/24 21:55 1 STRIP Insulin Human Regular HS SC 04/04/24 22:00 04/17/24 22:01 2 UNITS Insulin Human Regular AC SC 04/04/24 07:00 04/17/24 17:28 2 UNITS Dextrose 50 ml UD PRN IV 04/03/24 22:45 Piperacillin Sod/ Tazobactam Sod 100 ml @ 25 mls/hr Q8HR@0100,0900,1700 IV 04/04/24 01:00 04/17/24 17:26 25 MLS/HR Docusate Sodium 100 mg BIDP PO 04/05/24 10:00 04/17/24 21:47 100 MG Ondansetron HCl 4 mg Q6HPRN PRN IV 04/11/24 00:45 Hydromorphone HCl 0.2 mg Q4HPRN PRN IV 04/11/24 01:15 Hydromorphone HCl 0.4 mg Q4HPRN PRN IV 04/11/24 01:15 04/17/24 04:10 0.4 MG Acetaminophen/ Hydrocodone Bitart 1 tab Q4HPRN PRN PO 04/11/24 01:15 04/15/24 21:25 1 TAB Vancomycin HCl 0 ml @ 0 mls/hr UD IV 04/12/24 14:45 Cancel Dextrose/Sodium Chloride 1,000 ml @ 150 mls/hr Q6H40M IV 04/16/24 06:30 04/17/24 13:26 150 MLS/HR Famotidine 20 mg EOD PO 04/17/24 10:00 Apixaban 5 mg BID PO 04/17/24 10:30 04/17/24 21:47 5 MG objective General: the patient is well developed and nourished. No acute distress. MENTAL STATUS: Awake and alert. Oriented to person, place SPEECH, LANGUAGE, HIGHER CORTICAL FUNCTION: no aphasia, he was mild dysathria. CRANIAL NERVES: Dense left homonymous hemianopsia Pupils are equal, round and reactive. EOMs full and conjugate. Facial sensation intact in all three divisions bilaterally. Mandibular strength intact. Left facial weakness of upper motor neuron pattern SENSATION: Sensation to touch and pinprick is normal. MOTOR: Normal tone in the upper and lower extremity. Normal muscle bulk. No fasciculations. No abnormal movements or posturing. Muscle strength of the major groups in the right extremities is: Upper: 5/5, Lower: 3-4/5. Muscle strength of the major groups in the lower extremities: Upper extremity: 2/5. Lower extremity: 2/5 REFLEXES: Deep tendon reflexes are symmetrical. No pathological reflexes. CEREBELLAR/COORDINATION: Deferred GAIT/STATION: deferred laboratory and microbiology Laboratory Tests 04/17/24 21:16 04/16/24 07:15 Test 04/17/24 21:16 Range/Units Serum Glucose 135 H 74-106 mg/dL Problem List Worsened slurred speech, left facial drooping, to rule out acute stroke Chronic stroke with residual left-sided hemiparesis, bed bound Left homonymous hemianopsia, secondary to stroke Atrial fibrillation Assessment/Plan Monitoring Supportive treatment Telemetry Eliquis 5 mg b.i.d. Lipitor 40 mg daily GI prophylax Cardiology on case Infectious disease on case More recommendation per clinical course This medical document was created using an electronic medical record system with [employer] dictation system. Although this document has been carefully reviewed, there may still be some phonetic and typographical errors. These areas are purely typographical due to imperfections of the software programs, and do not reflect any compromise in the patient's medical care. Prognosis poor Dietary Evaluation Review Recommendations by RD: Dietary education by RD Comments: 1. Recommend timely diet advancement to Low Fat diet s/p cholecystectomy 2. May consider Ensure Clear supplements TID in the interim appropriate for current diet order to optimize nutrition (250 kcal, 8 gm pro, 0 gm fat/carton) 3. Consulted for TPN/EN: TPN is not clinically indicated at this time due to functional GI tract; should nutrition support be desired, would recommend tube feeding with peptide-based, hydrolyzed formula for improved tolerance - however, advise oral diet trial prior to initiating nutrition support measures Expected Outcomes/Goals: Diet advancement, improved nutritional status, post-op healing Plan discussed with: Other RADHA CORNEJO MD Apr 17, 2024 22:28
[2024-04-18] VITALS (9 sets, daily range): BP systolic 101–117; BP diastolic 55–71; PULSE 85–108; RESP 18–20; TEMP 97.7–98.4; O2SAT 93–98
[2024-04-18 06:05] LABS: Basophils # (auto) 0.1 10 ^3/uL (0-0.2); Eosinophils # (auto) 0.1 10 ^3/uL (0-0.8); Monocytes # (auto) 1.1 10 ^3/uL (0-1.3); Neutrophils # (auto) 9.9 10 ^3/uL (1.6-8.6)
[2024-04-18 06:07] LABS: Basophils % (auto) 0.7 % (0.0-2.0); Eosinophils % (auto) 0.8 % (0.0-7.0); Hematocrit 29.3 % (41.0-53.0); Hemoglobin 9.9 g/dL (13.5-17.5); Lymphocytes # (auto) 1.9 10 ^3/uL (0.4-5.4); Lymphocytes % (auto) 14.6 % (10.0-50.0); Mean Corpuscular Hemoglobin 29.7 pg (28.0-32.0); Mean Corpuscular Hgb Conc. 33.8 g/dL (32.0-36.0); Mean Corpuscular Volume 87.9 fL (80.0-100.0); Monocytes % (auto) 8.3 % (0.0-12.0); Neutrophils % (auto) 75.6 % (37.0-80.0); Platelet Count (auto) 545 10^3/uL (140-450); Red Blood Cells 3.33 10^6/uL (4.5-5.90); Red Cell Distribution Width 14.4 % (11.8-14.3)
[2024-04-18 08:07] LABS: Alanine Aminotransferase 13 U/L (7-40); Albumin 3.3 g/dL (3.2-4.8); Alkaline Phosphatase 99 U/L (46-116); Anion Gap 12 (5-15); Aspartate Aminotransferase 19 U/L (13-40); BUN/Creatinine Ratio 11.5 (10.0-20.0); Bilirubin, Total 0.3 mg/dL (0.2-1.0); Blood Urea Nitrogen 18 mg/dL (9-23); Calcium 8.8 mg/dL (8.7-10.4); Carbon Dioxide 22 mmol/L (20-31); Potassium 3.9 mmol/L (3.5-5.1); Sodium 141 mmol/L (136-145)
[2024-04-18 08:10] LABS: Chloride 107 mmol/L (98-107); Glucose 138 mg/dL (74-106); Total Protein 5.4 g/dL (5.7-8.2)
--- NOTE | 2024-04-18 10:53 | DVH ---
Procedure: CT CT AB PEL WO CON-NO ORAL OR IV 04/18/2024 09:26 AM Indication: ABDOMINAL PAIN S/P CHOLECYSTECTOMY Comparison Study: CT scan dated 04/07/2024 Technique: Axial images were obtained and reformatted in coronal and sagittal planes. All CT scans at this medical facility are performed using dose modulation techniques as appropriate t o a performed exam including the following: Automated exposure control was utilized; adjustment of th e MA and/or KV according to patient size; and use of iterative reconstruction technique. CT Dose: CTDI volume is 10.38 mGy. Dose-length product is 549.89 mGy*cm FINDINGS: Right hemiabdomen drainage catheters are again noted. There is interval regression of fluid in the ga llbladder fossa. Interval regression of fluid and air anterior to the liver. No intrahepatic or extr ahepatic ductal dilatation. Moderate residual contrast throughout the large bowel is seen. Small troy unt of air noted in the urinary bladder. The Velazquez catheter is removed. The kidneys, adrenal glands, spleen and pancreas are unremarkable. No evidence of small-bowel obstruc tion. No acute osseous or soft tissue abnormality. IMPRESSION: 1. Regressing fluid in gallbladder fossa. 2. Regressing fluid and air anterior to the liver. 3. Right-sided drainage catheters are stable in position. 1 of the catheters ends on the lateral asp ect of the right hepatic lobe and the other in the lesser sac. None of the catheters extend to the co llection of air and fluid anterior to the left hepatic lobe which seems to be free and non loculated.
--- NOTE | 2024-04-18 11:00 | DVHPN2 ---
Progress Note - Surgical Date Seen: Apr 18, 2024 Post op day Post op day: 16 Subjective Patient reports: No new complaints Review of Systems: HEENT:Normal, CVS:Normal, RESPIRATORY:Normal, GI:Normal, :Normal, NEURO:Normal Objective Vital signs Vital Sign Date Time Temp Pulse Resp B/P (MAP) Pulse Ox O2 Delivery O2 Flow Rate FiO2 04/18/24 08:46 98.4 87 18 102/67 (79) 93 98.4 04/17/24 20:00 Room Air* 0 21 Total Intake and Output 04/17/24 04/17/24 04/18/24 15:00 23:00 07:00 Intake Total 100 ml 300 ml 600 ml Output Total 400 ml Balance 100 ml -100 ml 600 ml Medications Current Medications Medications Dose Ordered Sig/Aruna Route Start Time Stop Time Status Last Admin Dose Admin Ceftriaxone Sodium/Dextrose 50 ml @ 50 mls/hr DAILY@2100 IV 04/04/24 21:00 Cancel Metronidazole 100 ml @ 100 mls/hr Q8HR IV 04/04/24 06:00 Cancel Atorvastatin Calcium 40 mg HS PO 04/04/24 22:00 04/17/24 21:47 40 MG Diagnostic Test (Pha) 1 strip ACHS 04/04/24 07:00 04/18/24 06:08 1 STRIP Insulin Human Regular HS SC 04/04/24 22:00 04/17/24 22:01 2 UNITS Insulin Human Regular AC SC 04/04/24 07:00 04/18/24 06:12 3 UNITS Dextrose 50 ml UD PRN IV 04/03/24 22:45 Piperacillin Sod/ Tazobactam Sod 100 ml @ 25 mls/hr Q8HR@0100,0900,1700 IV 04/04/24 01:00 04/18/24 09:47 25 MLS/HR Docusate Sodium 100 mg BIDP PO 04/05/24 10:00 04/18/24 09:47 100 MG Ondansetron HCl 4 mg Q6HPRN PRN IV 04/11/24 00:45 Hydromorphone HCl 0.2 mg Q4HPRN PRN IV 04/11/24 01:15 Hydromorphone HCl 0.4 mg Q4HPRN PRN IV 04/11/24 01:15 04/17/24 04:10 0.4 MG Acetaminophen/ Hydrocodone Bitart 1 tab Q4HPRN PRN PO 04/11/24 01:15 04/15/24 21:25 1 TAB Vancomycin HCl 0 ml @ 0 mls/hr UD IV 04/12/24 14:45 Cancel Dextrose/Sodium Chloride 1,000 ml @ 150 mls/hr Q6H40M IV 04/16/24 06:30 04/18/24 09:48 150 MLS/HR Famotidine 20 mg EOD PO 04/17/24 10:00 Apixaban 5 mg BID PO 04/17/24 10:30 04/18/24 09:47 5 MG Laboratory Laboratory Tests 04/18/24 04:55 Test 04/18/24 04:55 Range/Units Serum Glucose 138 H 74-106 mg/dL Microbiology Date/Time Source Procedure Growth Status 04/13/24 16:07 Blood Blood Culture - Preliminary NO GROWTH AFTER 72 HOURS OF INCUBATION. Resulted 04/02/24 17:16 Nose MRSA Screen - Final Complete 04/02/24 13:00 Gallbladder Fluid Anaerobic Culture - Final Complete 04/02/24 13:00 Aerobic Culture - Final Pseudomonas aeruginosa Enterobacter aerogenes Complete Examination: GENERAL:Normal, HEENT:Normal, NECK:Normal, LUNGS:Normal, CVS:Normal, ABDOMEN:Abnormal (GLORIA drains minimal serous/brown fluid), SKIN:Normal Problem List/Assessment/Plan Assessment and Plan no new complaints abdomen soft , non distended, appropriately tender wounds clean dry and intact GLORIA drains about 150cc serous/brown fluid Plan: continue with current treatment continue IV antibiotics pain control ok to downgrade to telemetry with a sitter Dr. Marin agrees with Plan 04/06/2024 no new complaints abdomen soft , non distended, appropriately tender wounds clean dry and intact GLORIA drains about 15cc serous/brown fluid tolerating diet Plan: continue current treatment IV antibiotics 04/08/2024 @1500 feeling better abdomen soft , non distended, non tender, passing gas, denies nausea or vomiting wounds clean dry and intact GLORIA drains one with bile/serous colored fluid 30cc second drain minimal serous fluid tolerating diet Plan: Empty drains daily IV hydration and antibiotics advance diet as tolerated Discussed with Dr. Marin 04/10/24 feeling better abdomen soft , non distended, non tender, passing gas, denies nausea or vomiting wounds clean dry and intact GLORIA drains one with bile/serous colored fluid 15cc, drainage decreased per assessment and notes second drain minimal serous fluid tolerating diet Plan: Empty drains daily IV hydration and antibiotics advance diet as tolerated Discussed with Dr. Marin S/P laparoscopic cholecystectomy patient resting in bed, GLORIA drains one with minimal serous fluid 2nd GLORIA drain 30cc bile colored fluid (total output 100cc over 24 hours) -febrile -elevated WBC Plan: Continue IV antibiotics replace Velazquez with an external catheter blood culture chest X-ray tomorrow AM GLORIA drains to Bulb suction Plan discussed with Dr. Marin and agrees 04/12/2024 s/p laparoscopic cholecystectomy no new complaints awake resting comfortably in bed abdominal wounds clean dry and francisco intact GLORIA drains one with 20cc bile fluid second drain 5 cc serous fluid , output decreasing pending labs , review of chest x ray Plan: GLORIA drains bulb suction use of incentive spirometer continue IV antibiotics labs pending blood cultures 04/14/24 patient status post laparoscopic cholecystectomy GLORIA drains 100cc bile colored fluid abdomen soft , non distended bowel movement this morning elevated WBC Plan: continue with current treatment continue with infectious disease recommendations Discussed with Dr. Marin 04/16/2024 patent status post laparoscopic cholecystectomy GLORIA drain 100 cc bile fluid GLORIA drain #2 minimal serous fluid drainage abdomen soft , non distended, non tender, bowel movements elevated WBC Plan: continue IV antibiotics as per Infectious disease Empty GLORIA drains when half full and reapply bulb suction 04/18/24 patient status post laparoscopic cholecystectomy no new complaints , patient afebrile, WBC 13.0 , minimal drainage from GLORIA drains this morning abdomen soft non distended, slightly tender Plan: Discussed with Dr. Marin order HIDA scan rule out biliary leak continue current treatment My Orders My Orders Orders - LAMAR CHOE DNP Procedure Category Date Status Time Nm Hida Scan NM 04/18/24 Verified 10:55 Plan discussed with Plan discussed with: Other (Dr. Marin) Visit Coding Surgery Date of Service if different f: Apr 18, 2024 Billing Provider: YOEL MARIN MD Surgery Visit Codes: [id number] INP/OBS CARE(HIGH) LAMAR CHOE DNP Apr 18, 2024 11:00
[2024-04-18] MEDS: HYDROmorphone HCL 2 MG/ML VL/or syr IV PRN (11:49)
--- NOTE | 2024-04-18 14:17 | DVH ---
Procedure: AL NM HIDA SCAN Exam Date: 04/18/2024 12:50 PM Clinical History: R/O biliary leak Comparison Study: [facility] HIDA SCAN on DOS: 03/31/24 Nuclear Medicine Hepatobiliary Scan. Technique: Following the intravenous administration of 6.5 mCi of technetium 99m labeled Choletec multiple plana r abdominal planar images were obtained in anterior projection in 5 minute intervals for45 minutes . Right lateral images were obtained at 45 minutes after injection. Findings: The liver appears grossly normal in size. There is no abnormal persistence of the cardiac or blood po ol activity. There is prompt excretion of activity into the small bowel. Impression: No findings to suggest biliary leak.
--- NOTE | 2024-04-18 15:57 | DVHPN2 ---
Progress Note - Dictate Date Seen: Apr 18, 2024 Has the PT tested + for MRSA If YES, has PT been informed?: No Medical Necessity Reason Pt with a Central, PICC or Fol: No Subjective The patient with difficulty voiding. Bladder scan showed approximately 500 mL of urine. vital signs Vital Sign Date Time Temp Pulse Resp B/P (MAP) Pulse Ox O2 Delivery O2 Flow Rate FiO2 04/18/24 12:30 98.1 108 18 117/64 (81) 96 98.1 04/18/24 08:10 Room Air* 0 21 Total Intake and Output 04/17/24 04/17/24 04/18/24 15:00 23:00 07:00 Intake Total 100 ml 300 ml 600 ml Output Total 400 ml Balance 100 ml -100 ml 600 ml medications Current Medications Medications Dose Ordered Sig/Aruna Route Start Time Stop Time Status Last Admin Dose Admin Ceftriaxone Sodium/Dextrose 50 ml @ 50 mls/hr DAILY@2100 IV 04/04/24 21:00 Cancel Metronidazole 100 ml @ 100 mls/hr Q8HR IV 04/04/24 06:00 Cancel Atorvastatin Calcium 40 mg HS PO 04/04/24 22:00 04/17/24 21:47 40 MG Diagnostic Test (Pha) 1 strip ACHS 04/04/24 07:00 04/18/24 11:41 1 STRIP Insulin Human Regular HS SC 04/04/24 22:00 04/17/24 22:01 2 UNITS Insulin Human Regular AC SC 04/04/24 07:00 04/18/24 11:41 3 UNITS Dextrose 50 ml UD PRN IV 04/03/24 22:45 Piperacillin Sod/ Tazobactam Sod 100 ml @ 25 mls/hr Q8HR@0100,0900,1700 IV 04/04/24 01:00 04/18/24 09:47 25 MLS/HR Docusate Sodium 100 mg BIDP PO 04/05/24 10:00 04/18/24 09:47 100 MG Ondansetron HCl 4 mg Q6HPRN PRN IV 04/11/24 00:45 Hydromorphone HCl 0.2 mg Q4HPRN PRN IV 04/11/24 01:15 04/18/24 11:49 0.2 MG Hydromorphone HCl 0.4 mg Q4HPRN PRN IV 04/11/24 01:15 04/17/24 04:10 0.4 MG Acetaminophen/ Hydrocodone Bitart 1 tab Q4HPRN PRN PO 04/11/24 01:15 04/15/24 21:25 1 TAB Vancomycin HCl 0 ml @ 0 mls/hr UD IV 04/12/24 14:45 Cancel Dextrose/Sodium Chloride 1,000 ml @ 150 mls/hr Q6H40M IV 04/16/24 06:30 04/18/24 09:48 150 MLS/HR Famotidine 20 mg EOD PO 04/17/24 10:00 Apixaban 5 mg BID PO 04/17/24 10:30 04/18/24 09:47 5 MG objective resting Lungs: Bilateral good air entry CVS: S1, S2 regular rate rhythm Abdomen: Soft, bowel sounds present ATTACHER: left sided weakness Extremities: No edema laboratory and microbiology Laboratory Tests 04/18/24 04:55 Test 04/18/24 04:55 Range/Units Serum Glucose 138 H 74-106 mg/dL Problem List Acute kidney injury most likely obstructive in nature Status post cholecystectomy Type 2 diabetes History of CVA Hyperlipidemia Assessment/Plan Improvement in GFR Velazquez cath Labs in AM Continue with IV antibiotics Started on IV hydration Dietary Evaluation Review Recommendations by RD: Dietary education by RD Comments: 1. Recommend timely diet advancement to Low Fat diet s/p cholecystectomy 2. May consider Ensure Clear supplements TID in the interim appropriate for current diet order to optimize nutrition (250 kcal, 8 gm pro, 0 gm fat/carton) 3. Consulted for TPN/EN: TPN is not clinically indicated at this time due to functional GI tract; should nutrition support be desired, would recommend tube feeding with peptide-based, hydrolyzed formula for improved tolerance - however, advise oral diet trial prior to initiating nutrition support measures Expected Outcomes/Goals: Diet advancement, improved nutritional status, post-op healing Plan discussed with: Other CIERRA NAVARRETE MD Apr 18, 2024 15:57
--- NOTE | 2024-04-18 19:10 | DVHPN2 ---
Consult Progress Note Date Seen: Apr 16, 2024 Subjective Patient reports: Other (is a bit agitated today and not really answering questions sensibly , has 2 drains that give out about 10ccs of output ) Objective vital signs Vital Sign Date Time Temp Pulse Resp B/P (MAP) Pulse Ox O2 Delivery O2 Flow Rate FiO2 04/18/24 17:00 98.0 91 18 103/61 (75) 93 98.0 04/18/24 08:10 Room Air* 0 21 Total Intake and Output 04/17/24 04/17/24 04/18/24 15:00 23:00 07:00 Intake Total 100 ml 300 ml 600 ml Output Total 400 ml Balance 100 ml -100 ml 600 ml medications Current Medications Medications Dose Ordered Sig/Aruna Route Start Time Stop Time Status Last Admin Dose Admin Ceftriaxone Sodium/Dextrose 50 ml @ 50 mls/hr DAILY@2100 IV 04/04/24 21:00 Cancel Metronidazole 100 ml @ 100 mls/hr Q8HR IV 04/04/24 06:00 Cancel Atorvastatin Calcium 40 mg HS PO 04/04/24 22:00 04/17/24 21:47 40 MG Diagnostic Test (Pha) 1 strip ACHS 04/04/24 07:00 04/18/24 17:25 1 STRIP Insulin Human Regular HS SC 04/04/24 22:00 04/17/24 22:01 2 UNITS Insulin Human Regular AC SC 04/04/24 07:00 04/18/24 17:00 3 UNITS Dextrose 50 ml UD PRN IV 04/03/24 22:45 Piperacillin Sod/ Tazobactam Sod 100 ml @ 25 mls/hr Q8HR@0100,0900,1700 IV 04/04/24 01:00 04/18/24 17:25 25 MLS/HR Docusate Sodium 100 mg BIDP PO 04/05/24 10:00 04/18/24 09:47 100 MG Ondansetron HCl 4 mg Q6HPRN PRN IV 04/11/24 00:45 Hydromorphone HCl 0.2 mg Q4HPRN PRN IV 04/11/24 01:15 04/18/24 11:49 0.2 MG Hydromorphone HCl 0.4 mg Q4HPRN PRN IV 04/11/24 01:15 04/17/24 04:10 0.4 MG Acetaminophen/ Hydrocodone Bitart 1 tab Q4HPRN PRN PO 04/11/24 01:15 04/15/24 21:25 1 TAB Vancomycin HCl 0 ml @ 0 mls/hr UD IV 04/12/24 14:45 Cancel Dextrose/Sodium Chloride 1,000 ml @ 150 mls/hr Q6H40M IV 04/16/24 06:30 04/18/24 18:34 150 MLS/HR Famotidine 20 mg EOD PO 04/17/24 10:00 Apixaban 5 mg BID PO 04/17/24 10:30 04/18/24 09:47 5 MG Physical Exam: - General: NAD - Neck: Supple. No masses. - HEENT: PERRL. Normal lids and conjunctiva. Moist mucous membranes. Oropharynx without lesions, exudates, or excessive erythema. Normal appearance of the external aspects of the nose and ears. - Heart: Regular rhythm, normal rate. No murmur. No lower extremity edema. - Lungs: Normal respiratory effort. Clear to auscultation bilaterally. No wheezes. No crackles. - Abdomen: Mildly distended. Tenderness in the right upper quadrant with guarding. No masses or abdominal hernia. - MSK: No digital cyanosis. Open, non-draining foot wounds status post multiple debridements. Normal strength and tone in all 4 limbs. - Skin: Warm and dry. Rash noted. - Neuro: Alert. No facial droop or slurred speech. Extraocular movements intact. Sensation intact to soft touch in all 4 limbs. - Psych: Appropriate mood. Full affect. Oriented to person, place, time, and situation. laboratory and microbiology Laboratory Tests 04/18/24 04:55 Test 04/18/24 04:55 Range/Units Serum Glucose 138 H 74-106 mg/dL Problem List/Assessment/Plan Problems(with codes): (1) Cerebrovascular accident (CVA) with left hemiparesis (2) Leukocytosis (3) Febrile (4) Hypertension (5) Diabetes (6) Acute cholecystitis (7) Abdominal pain (8) Sepsis Problem List/Assessment/Plan ID Problem List: - Cerebrovascular accident with left hand paresis - Bed confined - Uncontrolled diabetes mellitus - Hypercholesterolemia - Hypertension - Paroxysmal atrial fibrillation - Cholelithiasis - Cholecystitis - Recent right MCA stroke with mid-cervical occlusion of right ICA - Necrotic infections of bilateral feet, status post multiple debridements - Stroke Assessment This is a 68 y.o. male with a past medical history of cerebrovascular accident with left hand paresis, uncontrolled diabetes mellitus, hypercholesterolemia, hypertension, paroxysmal atrial fibrillation on Eliquis, recent right MCA stroke with mid-cervical occlusion of the right internal carotid artery, and status post coronary artery bypass graft several years ago, who presents with right upper quadrant pain, obstructive jaundice, and failure to thrive. The patient has been experiencing intermittent right upper quadrant pain and obstructive jaundice. He previously underwent percutaneous transhepatic biliary drainage at [facility] several weeks ago (records pending). Currently, he exhibits poor appetite, significant weight loss, and signs of acute cholecystitis. Vital signs are notable for fever (Tmax 101.5F) and tachycardia. Physical examination reveals right upper quadrant tenderness with guarding, mildly distended abdomen, rash, and open, non-draining foot wounds status post multiple debridements. Laboratory studies show leukocytosis (WBC 11.7 K/L) and elevated creatinine (1.56 mg/dL). Imaging studies are consistent with acute cholecystitis and stercoral colitis. 04/01: whitecount is 10.4 , patients MRPC shows no intro or extra hepatic biliary ductal dilation , no MRI evidence of chololithiasis , gallbladder wall thickening suggest acute cholecystitis . abdominal ultrasound shows cholelithiasis 04/02: per operative note patient underwent a laparoscopic cholecystectomy procedure and was found fibrinous flegmon in the right upper quadrant which consisted of trezors coils momentum loops of bowel. the inflammation was exuberant and after dissecting the momentum from the fundus of the gallbladder became obious the patient had a rupture of the gallbladder which spilled a myriad of natalya stones which was then seaaled off by this momentum and contained in the biloma and a puss collection . cultures and sensitivities were obtained . the myriad little stones were aspirated and scooped up to the best of my ability and then the gallbladder was resected by circumferentially dissecting the cystic duct and cystic artery . no attempt was made to trace the cystic duct to the common duct due to the inflammation and ligament is like adhesions and concretions . area was irrigated . patient remains normal throughout the procedure but there were no complications however the choice of laparoscopic procedure was chosen due to patient having a poor overall health 04/03: patients is growing 2 gram negative rods from operative cultures , whitecount is 16 and has tachycardia to 107s 2: whitecount is 13/7 , operative cultures are growing pseudomonas and enterobacteria both having sensitivities to levofloxacin , passing flattis and tolerating clear liquid diet 04/05:whitecount is 13.7 2: whitecount is 13.7 and BP is soft with MAPS 2: Ct abdomen and pelvis shows surgical drain has been placed in right upper quadrant and there remains post surgical debris and small amount of free fluid in the gallbladder 04/08: appears to be clinically responding to antibiotic therapy , whitecount is 10.8 04/10: patient appears to be clinically responding to antibiotics and is improving 04/11: whitecount is 14 and chest xray shows intrathoracic process 04/12: GPC in blood cultures could be skin nikolai contaminant vs staph infection vs enterococcus infection , will need to allow to speciate 04/13: patient appears to be doing clinically well , gram positive cocci in 02/22 blood cultures is likely coag negative staph suggestive of skin nikolai contaminate 04/14: growing staph epidermitis in blood likely skin nikolai contaminant , vancomycin troth is elevated at 29.5 04/15: creatine is rising , MRI shows scattered patchy restricted diffusion right frontal parietal temporal and occipital lobes consistent with multiple areas of acute to subacute infarcts , no significant edema or mass effect . small chronic cortical infarcts in the right parietal and occipital lobes , mild chronic microvascular white matter ischemic changes 04/16: repeat blood cultures remain no growth to date , whitecount is 15 Plan: - defer management of embolic stroke to primary and neurology teams - Stop vancomycin due to rising kidney function - repeat blood cultures in 24 hours - follow up on speciation and sensitivities - agree with plan to acquire blood cultures - continuing Zosyn while inpatient , when ready for discharge recommend oral Flagyl 500 mg 3x a day and oral levofloxacin 750 mg 1x a day to complete an additional 14 day course - aspiration precautions - follow up with infectious disease clinic in 4 weeks - defer post op management to general surgery - follow up on gram negative rods species - if tachycardia and other signs of sepsis persists would consider getting blood cultures , broadening out gram negative coverage - keep blood sugars under 180 Isolation Precautions: Standard Plan discussed with: Other Dietary Evaluation Review Recommendations by RD: Dietary education by RD Comments: 1. Recommend timely diet advancement to Low Fat diet s/p cholecystectomy 2. May consider Ensure Clear supplements TID in the interim appropriate for current diet order to optimize nutrition (250 kcal, 8 gm pro, 0 gm fat/carton) 3. Consulted for TPN/EN: TPN is not clinically indicated at this time due to functional GI tract; should nutrition support be desired, would recommend tube feeding with peptide-based, hydrolyzed formula for improved tolerance - however, advise oral diet trial prior to initiating nutrition support measures Expected Outcomes/Goals: Diet advancement, improved nutritional status, post-op healing TRENT STRINGER MD Apr 18, 2024 19:10
--- NOTE | 2024-04-18 19:14 | DVHPN2 ---
Consult Progress Note Date Seen: Apr 17, 2024 Subjective Patient reports: Other (continues to be altered appears close to baseline prior to admisssion , no drain output ) Objective vital signs Vital Sign Date Time Temp Pulse Resp B/P (MAP) Pulse Ox O2 Delivery O2 Flow Rate FiO2 04/18/24 17:00 98.0 91 18 103/61 (75) 93 98.0 04/18/24 08:10 Room Air* 0 21 Total Intake and Output 04/17/24 04/17/24 04/18/24 15:00 23:00 07:00 Intake Total 100 ml 300 ml 600 ml Output Total 400 ml Balance 100 ml -100 ml 600 ml medications Current Medications Medications Dose Ordered Sig/Aruna Route Start Time Stop Time Status Last Admin Dose Admin Ceftriaxone Sodium/Dextrose 50 ml @ 50 mls/hr DAILY@2100 IV 04/04/24 21:00 Cancel Metronidazole 100 ml @ 100 mls/hr Q8HR IV 04/04/24 06:00 Cancel Atorvastatin Calcium 40 mg HS PO 04/04/24 22:00 04/17/24 21:47 40 MG Diagnostic Test (Pha) 1 strip ACHS 04/04/24 07:00 04/18/24 17:25 1 STRIP Insulin Human Regular HS SC 04/04/24 22:00 04/17/24 22:01 2 UNITS Insulin Human Regular AC SC 04/04/24 07:00 04/18/24 17:00 3 UNITS Dextrose 50 ml UD PRN IV 04/03/24 22:45 Piperacillin Sod/ Tazobactam Sod 100 ml @ 25 mls/hr Q8HR@0100,0900,1700 IV 04/04/24 01:00 04/18/24 17:25 25 MLS/HR Docusate Sodium 100 mg BIDP PO 04/05/24 10:00 04/18/24 09:47 100 MG Ondansetron HCl 4 mg Q6HPRN PRN IV 04/11/24 00:45 Hydromorphone HCl 0.2 mg Q4HPRN PRN IV 04/11/24 01:15 04/18/24 11:49 0.2 MG Hydromorphone HCl 0.4 mg Q4HPRN PRN IV 04/11/24 01:15 04/17/24 04:10 0.4 MG Acetaminophen/ Hydrocodone Bitart 1 tab Q4HPRN PRN PO 04/11/24 01:15 04/15/24 21:25 1 TAB Vancomycin HCl 0 ml @ 0 mls/hr UD IV 04/12/24 14:45 Cancel Dextrose/Sodium Chloride 1,000 ml @ 150 mls/hr Q6H40M IV 04/16/24 06:30 04/18/24 18:34 150 MLS/HR Famotidine 20 mg EOD PO 04/17/24 10:00 Apixaban 5 mg BID PO 04/17/24 10:30 04/18/24 09:47 5 MG Physical Exam: - General: NAD - Neck: Supple. No masses. - HEENT: PERRL. Normal lids and conjunctiva. Moist mucous membranes. Oropharynx without lesions, exudates, or excessive erythema. Normal appearance of the external aspects of the nose and ears. - Heart: Regular rhythm, normal rate. No murmur. No lower extremity edema. - Lungs: Normal respiratory effort. Clear to auscultation bilaterally. No wheezes. No crackles. - Abdomen: Mildly distended. Tenderness in the right upper quadrant with guarding. No masses or abdominal hernia. - MSK: No digital cyanosis. Open, non-draining foot wounds status post multiple debridements. Normal strength and tone in all 4 limbs. - Skin: Warm and dry. Rash noted. - Neuro: Alert. No facial droop or slurred speech. Extraocular movements intact. Sensation intact to soft touch in all 4 limbs. - Psych: Appropriate mood. Full affect. Oriented to person, place, time, and situation. laboratory and microbiology Laboratory Tests 04/18/24 04:55 Test 04/18/24 04:55 Range/Units Serum Glucose 138 H 74-106 mg/dL Problem List/Assessment/Plan Problems(with codes): (1) Acute cholecystitis (2) Diabetes (3) Sepsis (4) Abdominal pain (5) Leukocytosis (6) Febrile (7) Cerebrovascular accident (CVA) with left hemiparesis Problem List/Assessment/Plan ID Problem List: - Cerebrovascular accident with left hand paresis - Bed confined - Uncontrolled diabetes mellitus - Hypercholesterolemia - Hypertension - Paroxysmal atrial fibrillation - Cholelithiasis - Cholecystitis - Recent right MCA stroke with mid-cervical occlusion of right ICA - Necrotic infections of bilateral feet, status post multiple debridements - Stroke Assessment This is a 68 y.o. male with a past medical history of cerebrovascular accident with left hand paresis, uncontrolled diabetes mellitus, hypercholesterolemia, hypertension, paroxysmal atrial fibrillation on Eliquis, recent right MCA stroke with mid-cervical occlusion of the right internal carotid artery, and status post coronary artery bypass graft several years ago, who presents with right upper quadrant pain, obstructive jaundice, and failure to thrive. The patient has been experiencing intermittent right upper quadrant pain and obstructive jaundice. He previously underwent percutaneous transhepatic biliary drainage at [facility] several weeks ago (records pending). Currently, he exhibits poor appetite, significant weight loss, and signs of acute cholecystitis. Vital signs are notable for fever (Tmax 101.5F) and tachycardia. Physical examination reveals right upper quadrant tenderness with guarding, mildly distended abdomen, rash, and open, non-draining foot wounds status post multiple debridements. Laboratory studies show leukocytosis (WBC 11.7 K/L) and elevated creatinine (1.56 mg/dL). Imaging studies are consistent with acute cholecystitis and stercoral colitis. 04/01: whitecount is 10.4 , patients MRPC shows no intro or extra hepatic biliary ductal dilation , no MRI evidence of chololithiasis , gallbladder wall thickening suggest acute cholecystitis . abdominal ultrasound shows cholelithiasis 04/02: per operative note patient underwent a laparoscopic cholecystectomy procedure and was found fibrinous flegmon in the right upper quadrant which consisted of trezors coils momentum loops of bowel. the inflammation was exuberant and after dissecting the momentum from the fundus of the gallbladder became obious the patient had a rupture of the gallbladder which spilled a myriad of natalya stones which was then seaaled off by this momentum and contained in the biloma and a puss collection . cultures and sensitivities were obtained . the myriad little stones were aspirated and scooped up to the best of my ability and then the gallbladder was resected by circumferentially dissecting the cystic duct and cystic artery . no attempt was made to trace the cystic duct to the common duct due to the inflammation and ligament is like adhesions and concretions . area was irrigated . patient remains normal throughout the procedure but there were no complications however the choice of laparoscopic procedure was chosen due to patient having a poor overall health 04/03: patients is growing 2 gram negative rods from operative cultures , whitecount is 16 and has tachycardia to 107s 04/04: whitecount is 13/7 , operative cultures are growing pseudomonas and enterobacteria both having sensitivities to levofloxacin , passing flattis and tolerating clear liquid diet 04/05:whitecount is 13.7 04/06: whitecount is 13.7 and BP is soft with MAPS 04/07: Ct abdomen and pelvis shows surgical drain has been placed in right upper quadrant and there remains post surgical debris and small amount of free fluid in the gallbladder 04/08: appears to be clinically responding to antibiotic therapy , whitecount is 10.8 04/10: patient appears to be clinically responding to antibiotics and is improving 04/11: whitecount is 14 and chest xray shows intrathoracic process 04/12: GPC in blood cultures could be skin nikolai contaminant vs staph infection vs enterococcus infection , will need to allow to speciate 04/13: patient appears to be doing clinically well , gram positive cocci in 1/ blood cultures is likely coag negative staph suggestive of skin nikolai contaminate 04/14: growing staph epidermitis in blood likely skin nikolai contaminant , vancomycin troth is elevated at 29.5 04/15: creatine is rising , MRI shows scattered patchy restricted diffusion right frontal parietal temporal and occipital lobes consistent with multiple areas of acute to subacute infarcts , no significant edema or mass effect . small chronic cortical infarcts in the right parietal and occipital lobes , mild chronic microvascular white matter ischemic changes 04/16: repeat blood cultures remain no growth to date , whitecount is 15 04/17: patient is having minimal output through GLORIA drain , whitecount is down to 13 and appears to be new mentation baseline Plan: - recommend CT pelvis and abdomen to evaluate persistent leukocytosis - patient is unable to communicate abdominal pain symptoms and this would be helpful in determining if patient needs ongoing drain or antibiotics - defer management of embolic stroke to primary and neurology teams - Stop vancomycin due to rising kidney function - repeat blood cultures in 24 hours - follow up on speciation and sensitivities - agree with plan to acquire blood cultures - continuing Zosyn while inpatient , when ready for discharge recommend oral Flagyl 500 mg 3x a day and oral levofloxacin 750 mg 1x a day to complete an additional 14 day course - aspiration precautions - follow up with infectious disease clinic in 4 weeks - defer post op management to general surgery - follow up on gram negative rods species - if tachycardia and other signs of sepsis persists would consider getting blood cultures , broadening out gram negative coverage - keep blood sugars under 180 Isolation Precautions: Standard Plan discussed with: Other Dietary Evaluation Review Recommendations by RD: Dietary education by RD Comments: 1. Recommend timely diet advancement to Low Fat diet s/p cholecystectomy 2. May consider Ensure Clear supplements TID in the interim appropriate for current diet order to optimize nutrition (250 kcal, 8 gm pro, 0 gm fat/carton) 3. Consulted for TPN/EN: TPN is not clinically indicated at this time due to functional GI tract; should nutrition support be desired, would recommend tube feeding with peptide-based, hydrolyzed formula for improved tolerance - however, advise oral diet trial prior to initiating nutrition support measures Expected Outcomes/Goals: Diet advancement, improved nutritional status, post-op healing TRENT STRINGER MD Apr 18, 2024 19:14
--- NOTE | 2024-04-18 19:18 | DVHPN2 ---
Consult Progress Note Date Seen: Apr 18, 2024 Subjective Patient reports: Other (states having abdominal cramping but not able to pinpoint where , A no x 1 ) Objective vital signs Vital Sign Date Time Temp Pulse Resp B/P (MAP) Pulse Ox O2 Delivery O2 Flow Rate FiO2 04/18/24 17:00 98.0 91 18 103/61 (75) 93 98.0 04/18/24 08:10 Room Air* 0 21 Total Intake and Output 04/17/24 04/17/24 04/18/24 15:00 23:00 07:00 Intake Total 100 ml 300 ml 600 ml Output Total 400 ml Balance 100 ml -100 ml 600 ml medications Current Medications Medications Dose Ordered Sig/Aruna Route Start Time Stop Time Status Last Admin Dose Admin Ceftriaxone Sodium/Dextrose 50 ml @ 50 mls/hr DAILY@2100 IV 04/04/24 21:00 Cancel Metronidazole 100 ml @ 100 mls/hr Q8HR IV 04/04/24 06:00 Cancel Atorvastatin Calcium 40 mg HS PO 04/04/24 22:00 04/17/24 21:47 40 MG Diagnostic Test (Pha) 1 strip ACHS 04/04/24 07:00 04/18/24 17:25 1 STRIP Insulin Human Regular HS SC 04/04/24 22:00 04/17/24 22:01 2 UNITS Insulin Human Regular AC SC 04/04/24 07:00 04/18/24 17:00 3 UNITS Dextrose 50 ml UD PRN IV 04/03/24 22:45 Piperacillin Sod/ Tazobactam Sod 100 ml @ 25 mls/hr Q8HR@0100,0900,1700 IV 04/04/24 01:00 04/18/24 17:25 25 MLS/HR Docusate Sodium 100 mg BIDP PO 04/05/24 10:00 04/18/24 09:47 100 MG Ondansetron HCl 4 mg Q6HPRN PRN IV 04/11/24 00:45 Hydromorphone HCl 0.2 mg Q4HPRN PRN IV 04/11/24 01:15 04/18/24 11:49 0.2 MG Hydromorphone HCl 0.4 mg Q4HPRN PRN IV 04/11/24 01:15 04/17/24 04:10 0.4 MG Acetaminophen/ Hydrocodone Bitart 1 tab Q4HPRN PRN PO 04/11/24 01:15 04/15/24 21:25 1 TAB Vancomycin HCl 0 ml @ 0 mls/hr UD IV 04/12/24 14:45 Cancel Dextrose/Sodium Chloride 1,000 ml @ 150 mls/hr Q6H40M IV 04/16/24 06:30 04/18/24 18:34 150 MLS/HR Famotidine 20 mg EOD PO 04/17/24 10:00 Apixaban 5 mg BID PO 04/17/24 10:30 04/18/24 09:47 5 MG Physical Exam: - General: NAD - Neck: Supple. No masses. - HEENT: PERRL. Normal lids and conjunctiva. Moist mucous membranes. Oropharynx without lesions, exudates, or excessive erythema. Normal appearance of the external aspects of the nose and ears. - Heart: Regular rhythm, normal rate. No murmur. No lower extremity edema. - Lungs: Normal respiratory effort. Clear to auscultation bilaterally. No wheezes. No crackles. - Abdomen: Mildly distended. Tenderness in the right upper quadrant with guarding. No masses or abdominal hernia. - MSK: No digital cyanosis. Open, non-draining foot wounds status post multiple debridements. Normal strength and tone in all 4 limbs. - Skin: Warm and dry. Rash noted. - Neuro: Alert. No facial droop or slurred speech. Extraocular movements intact. Sensation intact to soft touch in all 4 limbs. - Psych: Appropriate mood. Full affect. Oriented to person, place, time, and situation. laboratory and microbiology Laboratory Tests 04/18/24 04:55 Test 04/18/24 04:55 Range/Units Serum Glucose 138 H 74-106 mg/dL Problem List/Assessment/Plan Problems(with codes): (1) Cerebrovascular accident (CVA) with left hemiparesis (2) Febrile (3) Leukocytosis (4) Abdominal pain (5) Sepsis (6) Diabetes (7) Acute cholecystitis Problem List/Assessment/Plan ID Problem List: - Cerebrovascular accident with left hand paresis - Bed confined - Uncontrolled diabetes mellitus - Hypercholesterolemia - Hypertension - Paroxysmal atrial fibrillation - Cholelithiasis - Cholecystitis - Recent right MCA stroke with mid-cervical occlusion of right ICA - Necrotic infections of bilateral feet, status post multiple debridements - Stroke Assessment This is a 68 y.o. male with a past medical history of cerebrovascular accident with left hand paresis, uncontrolled diabetes mellitus, hypercholesterolemia, hypertension, paroxysmal atrial fibrillation on Eliquis, recent right MCA stroke with mid-cervical occlusion of the right internal carotid artery, and status post coronary artery bypass graft several years ago, who presents with right upper quadrant pain, obstructive jaundice, and failure to thrive. The patient has been experiencing intermittent right upper quadrant pain and obstructive jaundice. He previously underwent percutaneous transhepatic biliary drainage at [facility] several weeks ago (records pending). Currently, he exhibits poor appetite, significant weight loss, and signs of acute cholecystitis. Vital signs are notable for fever (Tmax 101.5F) and tachycardia. Physical examination reveals right upper quadrant tenderness with guarding, mildly distended abdomen, rash, and open, non-draining foot wounds status post multiple debridements. Laboratory studies show leukocytosis (WBC 11.7 K/L) and elevated creatinine (1.56 mg/dL). Imaging studies are consistent with acute cholecystitis and stercoral colitis. 04/01: whitecount is 10.4 , patients MRPC shows no intro or extra hepatic biliary ductal dilation , no MRI evidence of chololithiasis , gallbladder wall thickening suggest acute cholecystitis . abdominal ultrasound shows cholelithiasis 04/02: per operative note patient underwent a laparoscopic cholecystectomy procedure and was found fibrinous flegmon in the right upper quadrant which consisted of trezors coils momentum loops of bowel. the inflammation was exuberant and after dissecting the momentum from the fundus of the gallbladder became obious the patient had a rupture of the gallbladder which spilled a myriad of natalya stones which was then seaaled off by this momentum and contained in the biloma and a puss collection . cultures and sensitivities were obtained . the myriad little stones were aspirated and scooped up to the best of my ability and then the gallbladder was resected by circumferentially dissecting the cystic duct and cystic artery . no attempt was made to trace the cystic duct to the common duct due to the inflammation and ligament is like adhesions and concretions . area was irrigated . patient remains normal throughout the procedure but there were no complications however the choice of laparoscopic procedure was chosen due to patient having a poor overall health 04/03: patients is growing 2 gram negative rods from operative cultures , whitecount is 16 and has tachycardia to 107s 04/04: whitecount is 13/7 , operative cultures are growing pseudomonas and enterobacteria both having sensitivities to levofloxacin , passing flattis and tolerating clear liquid diet 04/05:whitecount is 13.7 04/06: whitecount is 13.7 and BP is soft with MAPS 04/07: Ct abdomen and pelvis shows surgical drain has been placed in right upper quadrant and there remains post surgical debris and small amount of free fluid in the gallbladder 04/08: appears to be clinically responding to antibiotic therapy , whitecount is 10.8 04/10: patient appears to be clinically responding to antibiotics and is improving 04/11: whitecount is 14 and chest xray shows intrathoracic process 04/12: GPC in blood cultures could be skin nikolai contaminant vs staph infection vs enterococcus infection , will need to allow to speciate 04/13: patient appears to be doing clinically well , gram positive cocci in 1/ blood cultures is likely coag negative staph suggestive of skin nikolai contaminate 04/14: growing staph epidermitis in blood likely skin nikolai contaminant , vancomycin troth is elevated at 29.5 04/15: creatine is rising , MRI shows scattered patchy restricted diffusion right frontal parietal temporal and occipital lobes consistent with multiple areas of acute to subacute infarcts , no significant edema or mass effect . small chronic cortical infarcts in the right parietal and occipital lobes , mild chronic microvascular white matter ischemic changes 04/16: repeat blood cultures remain no growth to date , whitecount is 15 04/17: patient is having minimal output through GLORIA drain , whitecount is down to 13 and appears to be new mentation baseline 04/18: whitecount is 13 , CT abdomen and pelvis shows regressing fluid collections with right sided drain cath stable and in position , none of the catheters extend to collections of air and fluid anterior to the left hepatic lobe which seems to be free and non occulted and the hiatus scan shows no signs of biliary leak Plan: - defer to general surgery if another catheter needs to be placed for ongoing remaining fluid collections around the liver - recommend CT pelvis and abdomen to evaluate persistent leukocytosis - patient is unable to communicate abdominal pain symptoms and this would be helpful in determining if patient needs ongoing drain or antibiotics - defer management of embolic stroke to primary and neurology teams - unclear if patient is microaspirating and would not like to try oral antibiotics at this time - repeat blood cultures in 24 hours - follow up on speciation and sensitivities - agree with plan to acquire blood cultures - continuing Zosyn while inpatient , when ready for discharge recommend oral Flagyl 500 mg 3x a day and oral levofloxacin 750 mg 1x a day to complete an additional 14 day course - aspiration precautions - follow up with infectious disease clinic in 4 weeks - defer post op management to general surgery - follow up on gram negative rods species - if tachycardia and other signs of sepsis persists would consider getting blood cultures , broadening out gram negative coverage - keep blood sugars under 180 Isolation Precautions: Standard Plan discussed with: Other Dietary Evaluation Review Recommendations by RD: Dietary education by RD Comments: 1. Recommend timely diet advancement to Low Fat diet s/p cholecystectomy 2. May consider Ensure Clear supplements TID in the interim appropriate for current diet order to optimize nutrition (250 kcal, 8 gm pro, 0 gm fat/carton) 3. Consulted for TPN/EN: TPN is not clinically indicated at this time due to functional GI tract; should nutrition support be desired, would recommend tube feeding with peptide-based, hydrolyzed formula for improved tolerance - however, advise oral diet trial prior to initiating nutrition support measures Expected Outcomes/Goals: Diet advancement, improved nutritional status, post-op healing TRENT STRINGER MD Apr 18, 2024 19:18
--- NOTE | 2024-04-18 22:58 | DVHPN2 ---
Progress Note - Dictate Date Seen: Apr 18, 2024 Has the PT tested + for MRSA If YES, has PT been informed?: No Medical Necessity Reason Pt with a Central, PICC or Fol: No Subjective Patient was seen and evaluated in follow up. The patient with difficulty voiding, bladder scan showed approximately 500 mL of urine. Patient denies any complaints. GLORIA drain #1 5cc output, GLORIA drain #2 10cc output. WBC 13.9, HGB 9.9, HCT 29.3, [employer] 1.57. Telemetry reviewed. vital signs Vital Sign Date Time Temp Pulse Resp B/P (MAP) Pulse Ox O2 Delivery O2 Flow Rate FiO2 04/18/24 08:46 98.4 87 18 102/67 (79) 93 98.4 04/18/24 08:10 Room Air* 0 21 Total Intake and Output 04/17/24 04/17/24 04/18/24 15:00 23:00 07:00 Intake Total 100 ml 300 ml 600 ml Output Total 400 ml Balance 100 ml -100 ml 600 ml medications Current Medications Medications Dose Ordered Sig/Aruna Route Start Time Stop Time Status Last Admin Dose Admin Ceftriaxone Sodium/Dextrose 50 ml @ 50 mls/hr DAILY@2100 IV 04/04/24 21:00 Cancel Metronidazole 100 ml @ 100 mls/hr Q8HR IV 04/04/24 06:00 Cancel Atorvastatin Calcium 40 mg HS PO 04/04/24 22:00 04/17/24 21:47 40 MG Diagnostic Test (Pha) 1 strip ACHS 04/04/24 07:00 04/18/24 06:08 1 STRIP Insulin Human Regular HS SC 04/04/24 22:00 04/17/24 22:01 2 UNITS Insulin Human Regular AC SC 04/04/24 07:00 04/18/24 06:12 3 UNITS Dextrose 50 ml UD PRN IV 04/03/24 22:45 Piperacillin Sod/ Tazobactam Sod 100 ml @ 25 mls/hr Q8HR@0100,0900,1700 IV 04/04/24 01:00 04/18/24 09:47 25 MLS/HR Docusate Sodium 100 mg BIDP PO 04/05/24 10:00 04/18/24 09:47 100 MG Ondansetron HCl 4 mg Q6HPRN PRN IV 04/11/24 00:45 Hydromorphone HCl 0.2 mg Q4HPRN PRN IV 04/11/24 01:15 Hydromorphone HCl 0.4 mg Q4HPRN PRN IV 04/11/24 01:15 04/17/24 04:10 0.4 MG Acetaminophen/ Hydrocodone Bitart 1 tab Q4HPRN PRN PO 04/11/24 01:15 04/15/24 21:25 1 TAB Vancomycin HCl 0 ml @ 0 mls/hr UD IV 04/12/24 14:45 Cancel Dextrose/Sodium Chloride 1,000 ml @ 150 mls/hr Q6H40M IV 04/16/24 06:30 04/18/24 09:48 150 MLS/HR Famotidine 20 mg EOD PO 04/17/24 10:00 Apixaban 5 mg BID PO 04/17/24 10:30 04/18/24 09:47 5 MG objective GENERAL: Awake, alert, oriented. LUNGS: Clear. CARDIOVASCULAR: Heart sounds are good. ABDOMEN: Soft. RUQ TTP. laboratory and microbiology Laboratory Tests 04/18/24 04:55 Test 04/18/24 04:55 Range/Units Serum Glucose 138 H 74-106 mg/dL Problem List Acute RUQ abdominal pain. Acute cholecystitis. Recent history of choledocholithiasis and obstructive jaundice. Status post percutaneous transhepatic biliary drainage. Hypovolemia. Right CVA with left-sided hemiparesis. Diabetes. Hypertension. Noncompliance with medical recommendations. Assessment/Plan Continued all current supportive medical care. Dilaudid and [place] for pain management. Eliquis. Lipitor. IV antibiotics as ordered. GI prophylactics. Additional plan as per the hospital course. Dietary Evaluation Review Recommendations by RD: Dietary education by RD Comments: 1. Recommend timely diet advancement to Low Fat diet s/p cholecystectomy 2. May consider Ensure Clear supplements TID in the interim appropriate for current diet order to optimize nutrition (250 kcal, 8 gm pro, 0 gm fat/carton) 3. Consulted for TPN/EN: TPN is not clinically indicated at this time due to functional GI tract; should nutrition support be desired, would recommend tube feeding with peptide-based, hydrolyzed formula for improved tolerance - however, advise oral diet trial prior to initiating nutrition support measures Expected Outcomes/Goals: Diet advancement, improved nutritional status, post-op healing Plan discussed with: Patient ANITRA HOOD MD Apr 18, 2024 11:37
--- NOTE | 2024-04-18 23:47 | DVHPN2 ---
Progress Note - Dictate Date Seen: Apr 19, 2024 Has the PT tested + for MRSA If YES, has PT been informed?: No Medical Necessity Reason Pt with a Central, PICC or Fol: No Subjective The patient is seen at Rm [facility] on a tele [place] The patient noted to worsening of nasolabial fold asymmetry left side Is suspected to have developing recurrence of * Recommended patient to receive MRI of head, antiplatelet agent and neurology consult * Also being evaluated for acute kidney injury-serum Cr up at 1.79 mg/dL * Received ultrasound of renals-shows layering of debris at posterior wall of bladder No hydronephrosis was noted * Continued patient on IV hydration * Requested nephrology consultation from Dr. Donn Mcarthur * Continued patient on IV antibiotics * Receives parenteral analgesics in smaller doses at less frequent basis * Currently followed by Dr. Adriel Mcarthur cardiology and Dr. Raul Barroso infectious Disease Overnight events are reviewed through medical chart and case discussion with patient's assigned RN while making rounds on patient on the day of service vital signs Vital Sign Date Time Temp Pulse Resp B/P (MAP) Pulse Ox O2 Delivery O2 Flow Rate FiO2 04/18/24 21:00 97.7 101 19 109/71 (84) 96 97.7 04/18/24 19:56 Room Air* 0 21 Total Intake and Output 04/17/24 04/17/24 04/18/24 15:00 23:00 07:00 Intake Total 100 ml 300 ml 600 ml Output Total 400 ml Balance 100 ml -100 ml 600 ml medications Current Medications Medications Dose Ordered Sig/Aruna Route Start Time Stop Time Status Last Admin Dose Admin Ceftriaxone Sodium/Dextrose 50 ml @ 50 mls/hr DAILY@2100 IV 04/04/24 21:00 Cancel Metronidazole 100 ml @ 100 mls/hr Q8HR IV 04/04/24 06:00 Cancel Atorvastatin Calcium 40 mg HS PO 04/04/24 22:00 04/18/24 21:46 40 MG Diagnostic Test (Pha) 1 strip ACHS 04/04/24 07:00 04/18/24 21:37 1 STRIP Insulin Human Regular HS SC 04/04/24 22:00 04/17/24 22:01 2 UNITS Insulin Human Regular AC SC 04/04/24 07:00 04/18/24 17:00 3 UNITS Dextrose 50 ml UD PRN IV 04/03/24 22:45 Piperacillin Sod/ Tazobactam Sod 100 ml @ 25 mls/hr Q8HR@0100,0900,1700 IV 04/04/24 01:00 04/18/24 17:25 25 MLS/HR Docusate Sodium 100 mg BIDP PO 04/05/24 10:00 04/18/24 21:46 100 MG Ondansetron HCl 4 mg Q6HPRN PRN IV 04/11/24 00:45 Hydromorphone HCl 0.2 mg Q4HPRN PRN IV 04/11/24 01:15 04/18/24 11:49 0.2 MG Hydromorphone HCl 0.4 mg Q4HPRN PRN IV 04/11/24 01:15 04/17/24 04:10 0.4 MG Acetaminophen/ Hydrocodone Bitart 1 tab Q4HPRN PRN PO 04/11/24 01:15 04/15/24 21:25 1 TAB Vancomycin HCl 0 ml @ 0 mls/hr UD IV 04/12/24 14:45 Cancel Dextrose/Sodium Chloride 1,000 ml @ 150 mls/hr Q6H40M IV 04/16/24 06:30 04/18/24 18:34 150 MLS/HR Famotidine 20 mg EOD PO 04/17/24 10:00 Apixaban 5 mg BID PO 04/17/24 10:30 04/18/24 21:46 5 MG objective Physical Exam General appearance: Well-developed, well-nourished middle-aged male Awake alert oriented x2 Reports post surgical pains Head: Normocephalic nontraumatic Eyes: EOMI, ALIE, sclera nonicteric, conjunctive- pale ENT: No congestion, NSL bilateral symmetrical, oral mucosa wet Neck: Supple, carotid upstroke +2, trachea midline, JVD 2 cm No goiter/stridor, no lymph nodes JVD-3 cm, C spine- Full ROM No use of sternomastoid muscle Chest: Bilateral symmetrical expansions, no costochondral tenderness Lungs: clear breath sounds all over except reduced at bases CVS: PMI-1 cm medial to L MCL in fifth ICS , S1-S2 NSR no S3 GI: Abdomen soft, obese, bowel sounds hypoactive RUQ-postsurgical wound -clean minimally tender GLORIA drain-serous discharge No RUQ tenderness, no rebound tenderness No hepatosplenomegaly, no mass no hernia , : No CVA tenderness, no bladder mass palpable, genitalia-NE SKIN: Turgor dry, color pink, no rash, no icterus, No varicosity, no ulcers or wounds EXTs: No edema, color pink, no rash, no ecchymosis distal pulses +2 capillary refill <2 seconds, No open wounds JOINTS; full range of motion BACK: No apparent lumbosacral spinal muscle tenderness, LYMPH NODES: No cervical, axillary or inguinal lymph nodes Neuro: Awake alert oriented x2 speech nonfluent expressive aphasia Left-sided hemiparesis motor strength three to 4/5 Sensory-changes of DPN as before PSYCH: Affect mildly depressed-denies suicidal ideation laboratory and microbiology Laboratory Tests 04/18/24 04:55 Test 04/18/24 04:55 Range/Units Serum Glucose 138 H 74-106 mg/dL ORDERING PHYSICIAN: LAMAR CHOE DNP PROCEDURE(s): [facility] - [place] HIDA SCAN REASON: R/O biliary leak ORDER NUMBER(s): [id number], ACCESSION NUMBER(s): [id number] Procedure: NM NM HIDA SCAN Exam Date: 04/18/2024 12:50 PM Clinical History: R/O biliary leak Comparison Study: NM NM HIDA SCAN on DOS: 03/31/24 Nuclear Medicine Hepatobiliary Scan. Findings: The liver appears grossly normal in size. There is no abnormal persistence of the cardiac or blood pool activity. There is prompt excretion of activity into the small bowel. Impression: No findings to suggest biliary leak. Problem List 1. Status post laparoscopy...................... Postoperative day 13 Evacuation of biloma, drainage of abscess and lysis of adhesions 2. Status post Acute cholecystitis Complicated by biloma, abscess and adhesions 3. Acute kidney injury From A intravascular depletion B. Post obstructive nephropathy- is ruled out 4. Acute on chronic iron-deficiency anemia from a. postsurgical blood loss vs hemodilution 5. 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 Fairly well-controlled diabetes and hypertension 2' Diagnosis/Comorbidities Noncompliance with medical recommendations Doppler lower Assessment/Plan Medical decision making The patient is seen on a postop day 13 of his receiving laparoscopic cholecystectomy * Remains hemodynamically stable and afebrile * ontinued on IV antibiotics-IV Zosyn as per Dr. 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 Raul Barroso as Infectious Disease and Dr. Adriel Mcarthur from Cardiology Treatment Plans Continue hospital stay on telemetry Reviewed results of MRI and carotid artery duplex study Reviewed the input of of Dr. Morales neurology Continue IV hydration at 100 mL Repeat BMP in the morning Continue small doses of parenteral analgesics for postsurgical pains Continue IV Zosyn Awaiting Nephrology consult Reviewed input of Dr. Raul Barroso ,ID and Dr. Adriel Mcarthur Cardiology Refer to social Service for discharge planning Reviewed input of GM VIDEO-GI consult Reconciled home meds VTE precautions Update patient The patient and and his were well informed by me about 1. Clinical impression, treatment plans, side effects of medications, course of the disease and fair to guarded prognosis 2. All patient's question/ concerns raised by patient are satisfactorily addressed by me Total time spent 45 minutes 40% of time spent interviewing the patient and physical exam 30% of time spent in gathering lab datas and imaging studies 30 % of time is spent in patient education Dietary Evaluation Review Recommendations by RD: Dietary education by RD Comments: 1. Recommend timely diet advancement to Low Fat diet s/p cholecystectomy 2. May consider Ensure Clear supplements TID in the interim appropriate for current diet order to optimize nutrition (250 kcal, 8 gm pro, 0 gm fat/carton) 3. Consulted for TPN/EN: TPN is not clinically indicated at this time due to functional GI tract; should nutrition support be desired, would recommend tube feeding with peptide-based, hydrolyzed formula for improved tolerance - however, advise oral diet trial prior to initiating nutrition support measures Expected Outcomes/Goals: Diet advancement, improved nutritional status, post-op healing ALLA BARROSO MD Apr 18, 2024 23:47
[2024-04-19] VITALS (8 sets, daily range): BP systolic 85–109; BP diastolic 54–70; PULSE 78–96; RESP 16–19; TEMP 98.2–99; O2SAT 93–97
--- NOTE | 2024-04-19 10:24 | DVHPN2 ---
Progress Note - Surgical Date Seen: Apr 19, 2024 Post op day Post op day: 17 Subjective Patient reports: No new complaints Review of Systems: HEENT:Normal, CVS:Normal, RESPIRATORY:Normal, GI:Normal, :Normal, MSK:Normal Objective Vital signs Vital Sign Date Time Temp Pulse Resp B/P (MAP) Pulse Ox O2 Delivery O2 Flow Rate FiO2 04/19/24 09:00 98.4 78 16 106/70 (82) 96 98.4 04/19/24 08:15 Room Air* 0 21 Total Intake and Output 04/18/24 04/18/24 04/19/24 15:00 23:00 07:00 Intake Total 100 ml 850 ml 400 ml Output Total 750 ml Balance 100 ml 850 ml -350 ml Medications Current Medications Medications Dose Ordered Sig/Aruna Route Start Time Stop Time Status Last Admin Dose Admin Ceftriaxone Sodium/Dextrose 50 ml @ 50 mls/hr DAILY@2100 IV 04/04/24 21:00 Cancel Metronidazole 100 ml @ 100 mls/hr Q8HR IV 04/04/24 06:00 Cancel Atorvastatin Calcium 40 mg HS PO 04/04/24 22:00 04/18/24 21:46 40 MG Diagnostic Test (Pha) 1 strip ACHS 04/04/24 07:00 04/19/24 06:30 1 STRIP Insulin Human Regular HS SC 04/04/24 22:00 04/17/24 22:01 2 UNITS Insulin Human Regular AC SC 04/04/24 07:00 04/18/24 17:00 3 UNITS Dextrose 50 ml UD PRN IV 04/03/24 22:45 Piperacillin Sod/ Tazobactam Sod 100 ml @ 25 mls/hr Q8HR@0100,0900,1700 IV 04/04/24 01:00 04/19/24 09:06 25 MLS/HR Docusate Sodium 100 mg BIDP PO 04/05/24 10:00 04/19/24 09:05 100 MG Ondansetron HCl 4 mg Q6HPRN PRN IV 04/11/24 00:45 Hydromorphone HCl 0.2 mg Q4HPRN PRN IV 04/11/24 01:15 04/18/24 11:49 0.2 MG Hydromorphone HCl 0.4 mg Q4HPRN PRN IV 04/11/24 01:15 04/17/24 04:10 0.4 MG Acetaminophen/ Hydrocodone Bitart 1 tab Q4HPRN PRN PO 04/11/24 01:15 04/15/24 21:25 1 TAB Vancomycin HCl 0 ml @ 0 mls/hr UD IV 04/12/24 14:45 Cancel Dextrose/Sodium Chloride 1,000 ml @ 150 mls/hr Q6H40M IV 04/16/24 06:30 04/19/24 05:47 150 MLS/HR Famotidine 20 mg EOD PO 04/17/24 10:00 04/19/24 09:05 20 MG Apixaban 5 mg BID PO 04/17/24 10:30 04/19/24 09:05 5 MG Laboratory Laboratory Tests 04/18/24 04:55 Test 04/18/24 04:55 Range/Units Serum Glucose 138 H 74-106 mg/dL Microbiology Date/Time Source Procedure Growth Status 04/13/24 16:07 Blood Blood Culture - Final NO GROWTH AFTER 5 DAYS OF INCUBATION. Complete 04/02/24 17:16 Nose MRSA Screen - Final Complete 04/02/24 13:00 Gallbladder Fluid Anaerobic Culture - Final Complete 04/02/24 13:00 Aerobic Culture - Final Pseudomonas aeruginosa Enterobacter aerogenes Complete Examination: GENERAL:Normal, HEENT:Normal, NECK:Normal, LUNGS:Normal, CVS:Normal, ABDOMEN:Abnormal (GLORIA drains ) Problem List/Assessment/Plan Problems: (1) Leukocytosis Assessment and Plan no new complaints abdomen soft , non distended, appropriately tender wounds clean dry and intact GLORIA drains about 150cc serous/brown fluid Plan: continue with current treatment continue IV antibiotics pain control ok to downgrade to telemetry with a sitter Dr. Marin agrees with Plan 04/06/2024 no new complaints abdomen soft , non distended, appropriately tender wounds clean dry and intact GLORIA drains about 15cc serous/brown fluid tolerating diet Plan: continue current treatment IV antibiotics 04/08/2024 @1500 feeling better abdomen soft , non distended, non tender, passing gas, denies nausea or vomiting wounds clean dry and intact GLORIA drains one with bile/serous colored fluid 30cc second drain minimal serous fluid tolerating diet Plan: Empty drains daily IV hydration and antibiotics advance diet as tolerated Discussed with Dr. Marin 04/10/24 feeling better abdomen soft , non distended, non tender, passing gas, denies nausea or vomiting wounds clean dry and intact GLORIA drains one with bile/serous colored fluid 15cc, drainage decreased per assessment and notes second drain minimal serous fluid tolerating diet Plan: Empty drains daily IV hydration and antibiotics advance diet as tolerated Discussed with Dr. Marin S/P laparoscopic cholecystectomy patient resting in bed, GLORIA drains one with minimal serous fluid 2nd GLORIA drain 30cc bile colored fluid (total output 100cc over 24 hours) -febrile -elevated WBC Plan: Continue IV antibiotics replace Velazquez with an external catheter blood culture chest X-ray tomorrow AM GLORIA drains to Bulb suction Plan discussed with Dr. Marin and agrees 04/12/2024 s/p laparoscopic cholecystectomy no new complaints awake resting comfortably in bed abdominal wounds clean dry and francisco intact GLORIA drains one with 20cc bile fluid second drain 5 cc serous fluid , output decreasing pending labs , review of chest x ray Plan: GLORIA drains bulb suction use of incentive spirometer continue IV antibiotics labs pending blood cultures 04/14/24 patient status post laparoscopic cholecystectomy GLORIA drains 100cc bile colored fluid abdomen soft , non distended bowel movement this morning elevated WBC Plan: continue with current treatment continue with infectious disease recommendations Discussed with Dr. Marin 04/16/2024 patent status post laparoscopic cholecystectomy GLORIA drain 100 cc bile fluid GLORIA drain #2 minimal serous fluid drainage abdomen soft , non distended, non tender, bowel movements elevated WBC Plan: continue IV antibiotics as per Infectious disease Empty GLORIA drains when half full and reapply bulb suction 04/18/24 patient status post laparoscopic cholecystectomy no new complaints , patient afebrile, WBC 13.0 , minimal drainage from GLORIA drains this morning abdomen soft non distended, non tender Plan: Discussed with Dr. Marin order HIDA scan rule out biliary leak continue current treatment 04/19/2024 patient status post laparoscopic cholecystectomy no new complaints , patient afebrile, WBC 13.0 , minimal drainage from GLORIA drains this morning abdomen soft non distended, slightly tender HIDA scan and CT reviewed Plan: redraw labs today continue IV antibiotics My Orders My Orders Orders - LAMAR CHOE DNP Procedure Category Date Status Time Nm Hida Scan NM 04/18/24 Resulted 10:55 Complete Blood Count LAB 04/19/24 Transmitted 10:20 Plan discussed with Plan discussed with: Other (Dr. Marin ) Visit Coding Surgery Date of Service if different f: Apr 19, 2024 Billing Provider: YEOL MARIN MD Surgery Visit Codes: [id number] INP/OBS CARE(HIGH) LAMAR CHOE [facility] Apr 19, 2024 10:24
[2024-04-19 11:22] LABS: Basophils # (auto) 0.1 10 ^3/uL (0-0.2); Eosinophils # (auto) 0.2 10 ^3/uL (0-0.8); Hemoglobin 9.7 g/dL (13.5-17.5); Lymphocytes # (auto) 1.6 10 ^3/uL (0.4-5.4); Monocytes # (auto) 0.8 10 ^3/uL (0-1.3)
[2024-04-19 11:24] LABS: Basophils % (auto) 0.7 % (0.0-2.0); Eosinophils % (auto) 1.5 % (0.0-7.0); Hematocrit 28.3 % (41.0-53.0); Lymphocytes % (auto) 13.1 % (10.0-50.0); Mean Corpuscular Hemoglobin 30.1 pg (28.0-32.0); Mean Corpuscular Hgb Conc. 34.3 g/dL (32.0-36.0); Mean Corpuscular Volume 87.6 fL (80.0-100.0); Monocytes % (auto) 6.2 % (0.0-12.0); Neutrophils # (auto) 9.6 10 ^3/uL (1.6-8.6); Neutrophils % (auto) 78.5 % (37.0-80.0); Platelet Count (auto) 564 10^3/uL (140-450); Red Blood Cells 3.24 10^6/uL (4.5-5.90); Red Cell Distribution Width 14.5 % (11.8-14.3); White Blood Cell 12.2 10^3/uL (4.4-10.8)
[2024-04-19 11:37] LABS: Alanine Aminotransferase 11 U/L (7-40); Albumin 3.5 g/dL (3.2-4.8); Alkaline Phosphatase 89 U/L (46-116); Anion Gap 10 (5-15); Aspartate Aminotransferase 22 U/L (13-40); BUN/Creatinine Ratio 7.1 (10.0-20.0); Blood Urea Nitrogen 11 mg/dL (9-23); Calcium 8.8 mg/dL (8.7-10.4); Carbon Dioxide 23 mmol/L (20-31); Sodium 141 mmol/L (136-145); Total Protein 6.3 g/dL (5.7-8.2)
[2024-04-19 11:43] LABS: Bilirubin, Total 0.2 mg/dL (0.2-1.0); Chloride 108 mmol/L (98-107); Glucose 158 mg/dL (74-106); Potassium 3.3 mmol/L (3.5-5.1)
--- NOTE | 2024-04-19 13:04 | DVHPN2 ---
Progress Note - Dictate Date Seen: Apr 19, 2024 Has the PT tested + for MRSA If YES, has PT been informed?: No Medical Necessity Reason Pt with a Central, PICC or Fol: No Subjective Patient was seen and evaluated in follow up. No overnight events. Patient is resting in bed. GLORIA drain #1 5cc output, GLORIA drain #2 10cc output. WBC 12.2, HGB 9.7, HCT 28.3, K 3.3, [employer] HELPER 1.54. Telemetry reviewed. vital signs Vital Sign Date Time Temp Pulse Resp B/P (MAP) Pulse Ox O2 Delivery O2 Flow Rate FiO2 04/19/24 09:00 98.4 78 16 106/70 (82) 96 98.4 04/19/24 08:15 Room Air* 0 21 Total Intake and Output 04/18/24 04/18/24 04/19/24 15:00 23:00 07:00 Intake Total 100 ml 850 ml 400 ml Output Total 750 ml Balance 100 ml 850 ml -350 ml medications Current Medications Medications Dose Ordered Sig/Aruna Route Start Time Stop Time Status Last Admin Dose Admin Ceftriaxone Sodium/Dextrose 50 ml @ 50 mls/hr DAILY@2100 IV 04/04/24 21:00 Cancel Metronidazole 100 ml @ 100 mls/hr Q8HR IV 04/04/24 06:00 Cancel Atorvastatin Calcium 40 mg HS PO 04/04/24 22:00 04/18/24 21:46 40 MG Diagnostic Test (Pha) 1 strip ACHS 04/04/24 07:00 04/19/24 11:46 1 STRIP Insulin Human Regular HS SC 04/04/24 22:00 04/17/24 22:01 2 UNITS Insulin Human Regular AC SC 04/04/24 07:00 04/19/24 11:47 2 UNITS Dextrose 50 ml UD PRN IV 04/03/24 22:45 Piperacillin Sod/ Tazobactam Sod 100 ml @ 25 mls/hr Q8HR@0100,0900,1700 IV 04/04/24 01:00 04/19/24 09:06 25 MLS/HR Docusate Sodium 100 mg BIDP PO 04/05/24 10:00 04/19/24 09:05 100 MG Ondansetron HCl 4 mg Q6HPRN PRN IV 04/11/24 00:45 Hydromorphone HCl 0.2 mg Q4HPRN PRN IV 04/11/24 01:15 04/18/24 11:49 0.2 MG Hydromorphone HCl 0.4 mg Q4HPRN PRN IV 04/11/24 01:15 04/17/24 04:10 0.4 MG Acetaminophen/ Hydrocodone Bitart 1 tab Q4HPRN PRN PO 04/11/24 01:15 04/15/24 21:25 1 TAB Vancomycin HCl 0 ml @ 0 mls/hr UD IV 04/12/24 14:45 Cancel Dextrose/Sodium Chloride 1,000 ml @ 150 mls/hr Q6H40M IV 04/16/24 06:30 04/19/24 05:47 150 MLS/HR Famotidine 20 mg EOD PO 04/17/24 10:00 04/19/24 09:05 20 MG Apixaban 5 mg BID PO 04/17/24 10:30 04/19/24 09:05 5 MG objective GENERAL: Awake, alert, oriented. LUNGS: Clear. CARDIOVASCULAR: Heart sounds are good. ABDOMEN: Soft. RUQ TTP. laboratory and microbiology Laboratory Tests 04/19/24 10:38 Test 04/19/24 10:38 Range/Units Serum Glucose 158 H 74-106 mg/dL Problem List Acute RUQ abdominal pain. Acute cholecystitis. Recent history of choledocholithiasis and obstructive jaundice. Status post percutaneous transhepatic biliary drainage. Hypovolemia. Right CVA with left-sided hemiparesis. Diabetes. Hypertension. Noncompliance with medical recommendations. Acute kidney injury. Acute on chronic iron-deficiency anemia from. R CVA with left-sided hemiparesis. Assessment/Plan Continued all current supportive medical care. Dilaudid and [place] for pain management. Eliquis. Lipitor. IV antibiotics as ordered. GI prophylactics. Additional plan as per the hospital course. Dietary Evaluation Review Recommendations by RD: Dietary education by RD Comments: 1. Recommend timely diet advancement to Low Fat diet s/p cholecystectomy 2. May consider Ensure Clear supplements TID in the interim appropriate for current diet order to optimize nutrition (250 kcal, 8 gm pro, 0 gm fat/carton) 3. Consulted for TPN/EN: TPN is not clinically indicated at this time due to functional GI tract; should nutrition support be desired, would recommend tube feeding with peptide-based, hydrolyzed formula for improved tolerance - however, advise oral diet trial prior to initiating nutrition support measures Expected Outcomes/Goals: Diet advancement, improved nutritional status, post-op healing Plan discussed with: Patient ANITRA HOOD MD Apr 19, 2024 12:25
--- NOTE | 2024-04-19 17:00 | DVHPN2 ---
Consult Progress Note Date Seen: Apr 19, 2024 Subjective Patient reports: Feels better (no diarrhea or rash) Objective vital signs Vital Sign Date Time Temp Pulse Resp B/P (MAP) Pulse Ox O2 Delivery O2 Flow Rate FiO2 04/19/24 14:30 77 16 101/70 04/19/24 13:00 98.6 96 98.6 04/19/24 08:15 Room Air* 0 21 Total Intake and Output 04/18/24 04/18/24 04/19/24 15:00 23:00 07:00 Intake Total 100 ml 850 ml 400 ml Output Total 750 ml Balance 100 ml 850 ml -350 ml medications Current Medications Medications Dose Ordered Sig/Aruna Route Start Time Stop Time Status Last Admin Dose Admin Ceftriaxone Sodium/Dextrose 50 ml @ 50 mls/hr DAILY@2100 IV 04/04/24 21:00 Cancel Metronidazole 100 ml @ 100 mls/hr Q8HR IV 04/04/24 06:00 Cancel Atorvastatin Calcium 40 mg HS PO 04/04/24 22:00 04/18/24 21:46 40 MG Diagnostic Test (Pha) 1 strip ACHS 04/04/24 07:00 04/19/24 11:46 1 STRIP Insulin Human Regular HS SC 04/04/24 22:00 04/17/24 22:01 2 UNITS Insulin Human Regular AC SC 04/04/24 07:00 04/19/24 11:47 2 UNITS Dextrose 50 ml UD PRN IV 04/03/24 22:45 Piperacillin Sod/ Tazobactam Sod 100 ml @ 25 mls/hr Q8HR@0100,0900,1700 IV 04/04/24 01:00 04/19/24 09:06 25 MLS/HR Docusate Sodium 100 mg BIDP PO 04/05/24 10:00 04/19/24 09:05 100 MG Ondansetron HCl 4 mg Q6HPRN PRN IV 04/11/24 00:45 Hydromorphone HCl 0.2 mg Q4HPRN PRN IV 04/11/24 01:15 04/19/24 13:53 0.2 MG Hydromorphone HCl 0.4 mg Q4HPRN PRN IV 04/11/24 01:15 04/17/24 04:10 0.4 MG Acetaminophen/ Hydrocodone Bitart 1 tab Q4HPRN PRN PO 04/11/24 01:15 04/15/24 21:25 1 TAB Vancomycin HCl 0 ml @ 0 mls/hr UD IV 04/12/24 14:45 Cancel Dextrose/Sodium Chloride 1,000 ml @ 150 mls/hr Q6H40M IV 04/16/24 06:30 04/19/24 05:47 150 MLS/HR Famotidine 20 mg EOD PO 04/17/24 10:00 04/19/24 09:05 20 MG Apixaban 5 mg BID PO 04/17/24 10:30 04/19/24 09:05 5 MG Physical Exam: General: NAD Neck: Supple. No masses. HEENT: PERRL. Normal lids and conjunctiva. Moist mucous membranes. Oropharynx without lesions, exudates, or excessive erythema. Normal appearance of the external aspects of the nose and ears. Heart: Regular rhythm, normal rate. No murmur. No lower extremity edema. Lungs: Diminished breath sounds at the bases bilaterally. No wheezes. No crackles. Abdomen: Soft. Non-tender. Non-distended. No masses or abdominal hernia. Msk: No digital cyanosis. Normal strength and tone in all 4 limbs. Skin: Warm and dry, no rashes. Neuro: Alert, more aware, following commands. No facial droop or slurred speech. Extra-ocular movements intact. Sensation intact to soft touch in all 4 limbs. Psych: Appropriate mood. Full affect. Oriented to person, place, time, and situation. laboratory and microbiology Laboratory Tests 04/19/24 10:38 Test 04/19/24 10:38 Range/Units Serum Glucose 158 H 74-106 mg/dL Problem List/Assessment/Plan Problem List/Assessment/Plan ID Problem List: - Cerebrovascular accident with left hand paresis - Bed confined - Uncontrolled diabetes mellitus - Hypercholesterolemia - Hypertension - Paroxysmal atrial fibrillation - Cholelithiasis - Cholecystitis - Recent right MCA stroke with mid-cervical occlusion of right ICA - Necrotic infections of bilateral feet, status post multiple debridements - Stroke Assessment This is a 68 y.o. male with a past medical history of cerebrovascular accident with left hand paresis, uncontrolled diabetes mellitus, hypercholesterolemia, hypertension, paroxysmal atrial fibrillation on Eliquis, recent right MCA stroke with mid-cervical occlusion of the right internal carotid artery, and status post coronary artery bypass graft several years ago, who presents with right upper quadrant pain, obstructive jaundice, and failure to thrive. The patient has been experiencing intermittent right upper quadrant pain and obstructive jaundice. He previously underwent percutaneous transhepatic biliary drainage at [facility] several weeks ago (records pending). Currently, he exhibits poor appetite, significant weight loss, and signs of acute cholecystitis. Vital signs are notable for fever (Tmax 101.5F) and tachycardia. Physical examination reveals right upper quadrant tenderness with guarding, mildly distended abdomen, rash, and open, non-draining foot wounds status post multiple debridements. Laboratory studies show leukocytosis (WBC 11.7 K/L) and elevated creatinine (1.56 mg/dL). Imaging studies are consistent with acute cholecystitis and stercoral colitis. 04/01: whitecount is 10.4 , patients MRPC shows no intro or extra hepatic biliary ductal dilation , no MRI evidence of chololithiasis , gallbladder wall thickening suggest acute cholecystitis . abdominal ultrasound shows cholelithiasis 04/02: per operative note patient underwent a laparoscopic cholecystectomy procedure and was found fibrinous flegmon in the right upper quadrant which consisted of trezors coils momentum loops of bowel. the inflammation was exuberant and after dissecting the momentum from the fundus of the gallbladder became obious the patient had a rupture of the gallbladder which spilled a myriad of natalya stones which was then seaaled off by this momentum and contained in the biloma and a puss collection . cultures and sensitivities were obtained . the myriad little stones were aspirated and scooped up to the best of my ability and then the gallbladder was resected by circumferentially dissecting the cystic duct and cystic artery . no attempt was made to trace the cystic duct to the common duct due to the inflammation and ligament is like adhesions and concretions . area was irrigated . patient remains normal throughout the procedure but there were no complications however the choice of laparoscopic procedure was chosen due to patient having a poor overall health 04/03: patients is growing 2 gram negative rods from operative cultures , whitecount is 16 and has tachycardia to 107s 04/04: whitecount is 13/7 , operative cultures are growing pseudomonas and enterobacteria both having sensitivities to levofloxacin , passing flattis and tolerating clear liquid diet 04/05:whitecount is 13.7 04/06: whitecount is 13.7 and BP is soft with MAPS 04/07: Ct abdomen and pelvis shows surgical drain has been placed in right upper quadrant and there remains post surgical debris and small amount of free fluid in the gallbladder 04/08: appears to be clinically responding to antibiotic therapy , whitecount is 10.8 04/10: patient appears to be clinically responding to antibiotics and is improving 04/11: whitecount is 14 and chest xray shows intrathoracic process 04/12: GPC in blood cultures could be skin nikolai contaminant vs staph infection vs enterococcus infection , will need to allow to speciate 04/13: patient appears to be doing clinically well , gram positive cocci in 02/22 blood cultures is likely coag negative staph suggestive of skin nikolai contaminate 04/14: growing staph epidermitis in blood likely skin nikolai contaminant , vancomycin troth is elevated at 29.5 04/15: creatine is rising , MRI shows scattered patchy restricted diffusion right frontal parietal temporal and occipital lobes consistent with multiple areas of acute to subacute infarcts , no significant edema or mass effect . small chronic cortical infarcts in the right parietal and occipital lobes , mild chronic microvascular white matter ischemic changes 04/16: repeat blood cultures remain no growth to date , whitecount is 15 04/17: patient is having minimal output through GLORIA drain , whitecount is down to 13 and appears to be new mentation baseline 04/18: whitecount is 13 , CT abdomen and pelvis shows regressing fluid collections with right sided drain cath stable and in position , none of the catheters extend to collections of air and fluid anterior to the left hepatic lobe which seems to be free and non occulted and the hiatus scan shows no signs of biliary leak Plan: - defer to general surgery if another catheter needs to be placed for ongoing remaining fluid collections around the liver - recommend CT pelvis and abdomen to evaluate persistent leukocytosis - patient is unable to communicate abdominal pain symptoms and this would be helpful in determining if patient needs ongoing drain or antibiotics - defer management of embolic stroke to primary and neurology teams - unclear if patient is microaspirating and would not like to try oral antibiotics at this time - repeat blood cultures in 24 hours - follow up on speciation and sensitivities - agree with plan to acquire blood cultures - continuing Zosyn while inpatient , when ready for discharge recommend oral Flagyl 500 mg 3x a day and oral levofloxacin 750 mg 1x a day to complete an additional 14 day course - aspiration precautions - follow up with infectious disease clinic in 4 weeks - defer post op management to general surgery - follow up on gram negative rods species - if tachycardia and other signs of sepsis persists would consider getting blood cultures , broadening out gram negative coverage - keep blood sugars under 180 Isolation Precautions: Standard Plan discussed with: Patient Dietary Evaluation Review Recommendations by RD: Dietary education by RD Comments: 1. Recommend timely diet advancement to Low Fat diet s/p cholecystectomy 2. May consider Ensure Clear supplements TID in the interim appropriate for current diet order to optimize nutrition (250 kcal, 8 gm pro, 0 gm fat/carton) 3. Consulted for TPN/EN: TPN is not clinically indicated at this time due to functional GI tract; should nutrition support be desired, would recommend tube feeding with peptide-based, hydrolyzed formula for improved tolerance - however, advise oral diet trial prior to initiating nutrition support measures Expected Outcomes/Goals: Diet advancement, improved nutritional status, post-op healing TRENT STRINGER MD Apr 19, 2024 17:00
--- NOTE | 2024-04-19 19:03 | DVHPN2 ---
Progress Note - Dictate Date Seen: Apr 19, 2024 Has the PT tested + for MRSA If YES, has PT been informed?: No Medical Necessity Reason Pt with a Central, PICC or Fol: No Subjective No new complaints; sleeping well Tolerating diet Minimal drainage from the GLORIA drains vital signs Vital Sign Date Time Temp Pulse Resp B/P (MAP) Pulse Ox O2 Delivery O2 Flow Rate FiO2 04/19/24 17:00 98.5 85 17 85/54 (64) 93 98.5 04/19/24 08:15 Room Air* 0 21 Total Intake and Output 04/18/24 04/18/24 04/19/24 15:00 23:00 07:00 Intake Total 100 ml 850 ml 400 ml Output Total 750 ml Balance 100 ml 850 ml -350 ml medications Current Medications Medications Dose Ordered Sig/Aruna Route Start Time Stop Time Status Last Admin Dose Admin Ceftriaxone Sodium/Dextrose 50 ml @ 50 mls/hr DAILY@2100 IV 04/04/24 21:00 Cancel Metronidazole 100 ml @ 100 mls/hr Q8HR IV 04/04/24 06:00 Cancel Atorvastatin Calcium 40 mg HS PO 04/04/24 22:00 04/18/24 21:46 40 MG Diagnostic Test (Pha) 1 strip ACHS 04/04/24 07:00 04/19/24 16:53 1 STRIP Insulin Human Regular HS SC 04/04/24 22:00 04/17/24 22:01 2 UNITS Insulin Human Regular AC SC 04/04/24 07:00 04/19/24 16:54 2 UNITS Dextrose 50 ml UD PRN IV 04/03/24 22:45 Piperacillin Sod/ Tazobactam Sod 100 ml @ 25 mls/hr Q8HR@0100,0900,1700 IV 04/04/24 01:00 04/19/24 17:47 25 MLS/HR Docusate Sodium 100 mg BIDP PO 04/05/24 10:00 04/19/24 09:05 100 MG Ondansetron HCl 4 mg Q6HPRN PRN IV 04/11/24 00:45 Hydromorphone HCl 0.2 mg Q4HPRN PRN IV 04/11/24 01:15 04/19/24 13:53 0.2 MG Hydromorphone HCl 0.4 mg Q4HPRN PRN IV 04/11/24 01:15 04/17/24 04:10 0.4 MG Acetaminophen/ Hydrocodone Bitart 1 tab Q4HPRN PRN PO 04/11/24 01:15 04/15/24 21:25 1 TAB Vancomycin HCl 0 ml @ 0 mls/hr UD IV 04/12/24 14:45 Cancel Dextrose/Sodium Chloride 1,000 ml @ 150 mls/hr Q6H40M IV 04/16/24 06:30 04/19/24 17:47 150 MLS/HR Famotidine 20 mg EOD PO 04/17/24 10:00 04/19/24 09:05 20 MG Apixaban 5 mg BID PO 04/17/24 10:30 04/19/24 09:05 5 MG objective Examination: GENERAL:Normal, HEENT:Normal, NECK:Normal, LUNGS:Normal, CVS:Normal, ABDOMEN:Abnormal (GLORIA drains ), MSK:Normal, SKIN:Normal, NEURO:Normal laboratory and microbiology Laboratory Tests 04/19/24 10:38 Test 04/19/24 10:38 Range/Units Serum Glucose 158 H 74-106 mg/dL HIDA scan Impression: No findings to suggest biliary leak. ABD PELVIC CT SCAN IMPRESSION: 1. Regressing fluid in gallbladder fossa. 2. Regressing fluid and air anterior to the liver. 3. Right-sided drainage catheters are stable in position. 1 of the catheters ends on the lateral aspect of the right hepatic lobe and the other in the lesser sac. None of the catheters extend to the collection of air and fluid anterior to the left hepatic lobe which seems to be free and non loculated. Problems(with codes): (1) Cerebrovascular accident (CVA) with left hemiparesis (2) Febrile (3) Abdominal pain (4) Sepsis (5) Diabetes (6) Acute cholecystitis (7) S/P cholecystectomy Prognosis Plan Recommend surgical follow up for possible removal of the drains If further drainage is required we can request IR consultation in the future for drain placement if there is a persistent fluid collection Continue IV antibiotics Supportive care Plan for placement for this patient upon discharge Dietary Evaluation Review Recommendations by RD: Dietary education by RD Comments: 1. Recommend timely diet advancement to Low Fat diet s/p cholecystectomy 2. May consider Ensure Clear supplements TID in the interim appropriate for current diet order to optimize nutrition (250 kcal, 8 gm pro, 0 gm fat/carton) 3. Consulted for TPN/EN: TPN is not clinically indicated at this time due to functional GI tract; should nutrition support be desired, would recommend tube feeding with peptide-based, hydrolyzed formula for improved tolerance - however, advise oral diet trial prior to initiating nutrition support measures Expected Outcomes/Goals: Diet advancement, improved nutritional status, post-op healing Plan discussed with: Other (None) EMILY NELSON MD Apr 19, 2024 19:03
[2024-04-19] MEDS ORDERED: POTASSIUM CHLORIDE 20 MEQ, LIDOCAINE 1% (LOCAL ANESTH.) 2 ML in SODIUM CHL 0.9% 100 ML IV ONE (22:00)
[2024-04-19] MEDS ORDERED: POTASSIUM CHLORIDE 20 MEQ, LIDOCAINE 1% (LOCAL ANESTH.) 2 ML in SODIUM CHL 0.9% 100 ML IV SCH (22:00)
[2024-04-19] MEDS: POTASSIUM CHL 20MEQ/100ML 100 ML IV ONE (23:14)
--- NOTE | 2024-04-19 23:35 | DVHPN2 ---
Progress Note - Dictate Date Seen: Apr 19, 2024 Has the PT tested + for MRSA If YES, has PT been informed?: No Medical Necessity Reason Pt with a Central, PICC or Fol: No Subjective The patient is seen at Rm 288 A on a tele [place] The patient is noted to worsening of L nasolabial fold droop , expressive aphasia From R MCA CVA * MRI abnormal for multiple acute to subacute infarcts * Continued patient on Eliquis * Patient is being followed by Dr. Morales * Also being evaluated for acute kidney injury-serum creatinine improved but still high at 1.63 mg/dL * Received ultrasound of renals-shows layering of debris at posterior wall of bladder No hydronephrosis was noted * Continued patient on IV hydration * Reviewed input of Dr. Gonzales nephrology * Recovering from postsurgical pains following to laparoscopic cholecystectomy * Receives parenteral analgesics in smaller doses at less frequent basis * Receives IV Zosyn as per consult with Dr. Raul Barroso infectious Disease * Currently followed by Dr. Adriel Mcarthur cardiology Overnight events are reviewed through medical chart and case discussion with patient's assigned RN while making rounds on patient on the day of service vital signs Vital Sign Date Time Temp Pulse Resp B/P (MAP) Pulse Ox O2 Delivery O2 Flow Rate FiO2 04/19/24 21:00 99.0 95 19 102/54 (70) 97 99.0 04/19/24 19:58 Room Air* 0 21 Total Intake and Output 04/18/24 04/18/24 04/19/24 15:00 23:00 07:00 Intake Total 100 ml 850 ml 400 ml Output Total 750 ml Balance 100 ml 850 ml -350 ml medications Current Medications Medications Dose Ordered Sig/Aruna Route Start Time Stop Time Status Last Admin Dose Admin Ceftriaxone Sodium/Dextrose 50 ml @ 50 mls/hr DAILY@2100 IV 04/04/24 21:00 Cancel Metronidazole 100 ml @ 100 mls/hr Q8HR IV 04/04/24 06:00 Cancel Atorvastatin Calcium 40 mg HS PO 04/04/24 22:00 04/19/24 22:35 40 MG Diagnostic Test (Pha) 1 strip ACHS 04/04/24 07:00 04/19/24 22:36 1 STRIP Insulin Human Regular HS SC 04/04/24 22:00 04/17/24 22:01 2 UNITS Insulin Human Regular AC SC 04/04/24 07:00 04/19/24 16:54 2 UNITS Dextrose 50 ml UD PRN IV 04/03/24 22:45 Piperacillin Sod/ Tazobactam Sod 100 ml @ 25 mls/hr Q8HR@0100,0900,1700 IV 04/04/24 01:00 04/19/24 17:47 25 MLS/HR Docusate Sodium 100 mg BIDP PO 04/05/24 10:00 04/19/24 22:35 100 MG Ondansetron HCl 4 mg Q6HPRN PRN IV 04/11/24 00:45 Hydromorphone HCl 0.2 mg Q4HPRN PRN IV 04/11/24 01:15 04/19/24 13:53 0.2 MG Hydromorphone HCl 0.4 mg Q4HPRN PRN IV 04/11/24 01:15 04/17/24 04:10 0.4 MG Acetaminophen/ Hydrocodone Bitart 1 tab Q4HPRN PRN PO 04/11/24 01:15 04/15/24 21:25 1 TAB Vancomycin HCl 0 ml @ 0 mls/hr UD IV 04/12/24 14:45 Cancel Dextrose/Sodium Chloride 1,000 ml @ 150 mls/hr Q6H40M IV 04/16/24 06:30 04/19/24 17:47 150 MLS/HR Famotidine 20 mg EOD PO 04/17/24 10:00 04/19/24 09:05 20 MG Apixaban 5 mg BID PO 04/17/24 10:30 04/19/24 22:36 5 MG objective Physical Exam General appearance: Well-developed, well-nourished middle-aged male Awake alert oriented x2 Reports post surgical pains Head: Normocephalic nontraumatic Eyes: EOMI, ALIE, sclera nonicteric, conjunctive- pale ENT: No congestion, NSL bilateral symmetrical, oral mucosa wet Neck: Supple, carotid upstroke +2, trachea midline, JVD 2 cm No goiter/stridor, no lymph nodes JVD-3 cm, C spine- Full ROM No use of sternomastoid muscle Chest: Bilateral symmetrical expansions, no costochondral tenderness Lungs: clear breath sounds all over except reduced at bases CVS: PMI-1 cm medial to L MCL in fifth ICS , S1-S2 NSR no S3 GI: Abdomen soft, obese, bowel sounds hypoactive RUQ-postsurgical wound -clean minimally tender GLORIA drain-serous discharge No RUQ tenderness, no rebound tenderness No hepatosplenomegaly, no mass no hernia , : No CVA tenderness, no bladder mass palpable, genitalia-NE SKIN: Turgor dry, color pink, no rash, no icterus, No varicosity, no ulcers or wounds EXTs: No edema, color pink, no rash, no ecchymosis distal pulses +2 capillary refill <2 seconds, No open wounds JOINTS; full range of motion BACK: No apparent lumbosacral spinal muscle tenderness, LYMPH NODES: No cervical, axillary or inguinal lymph nodes Neuro: Awake alert oriented x2 speech nonfluent expressive aphasia Left-sided hemiparesis motor strength three to 4/5 Sensory-changes of DPN as before PSYCH: Affect mildly depressed-denies suicidal ideation laboratory and microbiology Laboratory Tests 04/19/24 10:38 Test 04/19/24 10:38 Range/Units Serum Glucose 158 H 74-106 mg/dL Problem List 1. 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 Status post laparoscopic cholecystectomy...................... Postoperative day 14 Evacuation of biloma, drainage of abscess and lysis of adhesions Status post Acute cholecystitis Complicated by biloma, abscess and adhesions 3. Acute kidney injury From A intravascular depletion B. Post obstructive nephropathy- is ruled out 4. Acute on chronic iron-deficiency anemia from a. postsurgical blood loss vs hemodilution 5. Fairly well-controlled diabetes and hypertension 2' Diagnosis/Comorbidities Noncompliance with medical recommendations Doppler lower Assessment/Plan Medical decision making The patient is seen on a postop day 14 of his receiving laparoscopic cholecystectomy Including evacuation of by biloma, abscess * Remains hemodynamically stable and afebrile * Continued on IV antibiotics-IV Zosyn as per recommendation of Dr. Raul Barroso * Currently receives IV hydration for management of CARMEL * Serum creatinine has improved down to 1.63 mg/dL * Currently followed by Dr. Renner * Also noted symptoms of possible recurrence of R CVA with left hemiparesis * Received MRI of head which reflects multiple infarcts affecting R frontal Temporal-currently followed by Dr. Morales with whom I had a case discussion We will consider continuing Eliquis Noted complete occlusion of R ICA through carotid artery duplex study Carotid artery disease is the pre-existent finding * Patient is noted to have expressive aphasia and confused mental status * Continue patient on oral narcotic analgesics for pain management * Continue soft diet with addition of supplements * Currently followed by Dr. Adriel Mcarthur from Cardiology Treatment Plans Continue hospital stay on telemetry Reviewed results of MRI and carotid artery duplex study Reviewed the input of of Dr. Morales neurology Continue Eliquis Continue IV hydration at 100 mL Repeat BMP in the morning Tapering patient off parenteral analgesics for postsurgical pains Continue IV Zosyn in consult with Dr. Raul Barroso Continue Dr. Adriel Mcarthur Cardiology Refer to social Service for discharge planning Reviewed input of [facility]-GI consult VTE precautions Update patient The patient and and his were well informed by me about 1. Clinical impression, treatment plans, side effects of medications, course of the disease and fair to guarded prognosis 2. All patient's question/ concerns raised by patient are satisfactorily addressed by me Total time spent 45 minutes 40% of time spent interviewing the patient and physical exam 30% of time spent in gathering lab datas and imaging studies 30 % of time is spent in patient education Dietary Evaluation Review Recommendations by RD: Dietary education by RD Comments: 1. Recommend timely diet advancement to Low Fat diet s/p cholecystectomy 2. May consider Ensure Clear supplements TID in the interim appropriate for current diet order to optimize nutrition (250 kcal, 8 gm pro, 0 gm fat/carton) 3. Consulted for TPN/EN: TPN is not clinically indicated at this time due to functional GI tract; should nutrition support be desired, would recommend tube feeding with peptide-based, hydrolyzed formula for improved tolerance - however, advise oral diet trial prior to initiating nutrition support measures Expected Outcomes/Goals: Diet advancement, improved nutritional status, post-op healing ALLA BARROSO MD Apr 19, 2024 23:35
[2024-04-19] MEDS ORDERED: D5W/SOD CHL 0.45% 1,000 ML IV SCH (23:45)
[2024-04-20] VITALS (9 sets, daily range): BP systolic 91–111; BP diastolic 53–67; PULSE 63–104; RESP 16–20; TEMP 88.4–99.1; O2SAT 94–99
[2024-04-20] MEDS: D5W/SOD CHL 0.45% 1,000 ML IV SCH (00:15)
--- NOTE | 2024-04-20 10:14 | DVHPN2 ---
Progress Note - Dictate Date Seen: Apr 20, 2024 Has the PT tested + for MRSA If YES, has PT been informed?: No Medical Necessity Reason Pt with a Central, PICC or Fol: No Subjective Status post Velazquez catheter placement. Urine output of 1.3 L. No new labs for today. vital signs Vital Sign Date Time Temp Pulse Resp B/P (MAP) Pulse Ox O2 Delivery O2 Flow Rate FiO2 04/20/24 05:00 99.1 96 19 101/63 (76) 95 99.1 04/19/24 19:58 Room Air* 0 21 Total Intake and Output 04/19/24 04/19/24 04/20/24 15:00 23:00 07:00 Intake Total 100 ml 920 ml 1050 ml Output Total 450 ml 900 ml Balance 100 ml 470 ml 150 ml medications Current Medications Medications Dose Ordered Sig/Aruna Route Start Time Stop Time Status Last Admin Dose Admin Ceftriaxone Sodium/Dextrose 50 ml @ 50 mls/hr DAILY@2100 IV 04/04/24 21:00 Cancel Metronidazole 100 ml @ 100 mls/hr Q8HR IV 04/04/24 06:00 Cancel Atorvastatin Calcium 40 mg HS PO 04/04/24 22:00 04/19/24 22:35 40 MG Diagnostic Test (Pha) 1 strip ACHS 04/04/24 07:00 04/20/24 06:02 1 STRIP Insulin Human Regular HS SC 04/04/24 22:00 04/17/24 22:01 2 UNITS Insulin Human Regular AC SC 04/04/24 07:00 04/19/24 16:54 2 UNITS Dextrose 50 ml UD PRN IV 04/03/24 22:45 Piperacillin Sod/ Tazobactam Sod 100 ml @ 25 mls/hr Q8HR@0100,0900,1700 IV 04/04/24 01:00 04/20/24 09:15 25 MLS/HR Docusate Sodium 100 mg BIDP PO 04/05/24 10:00 04/20/24 09:16 100 MG Ondansetron HCl 4 mg Q6HPRN PRN IV 04/11/24 00:45 Hydromorphone HCl 0.2 mg Q4HPRN PRN IV 04/11/24 01:15 04/19/24 13:53 0.2 MG Hydromorphone HCl 0.4 mg Q4HPRN PRN IV 04/11/24 01:15 04/17/24 04:10 0.4 MG Acetaminophen/ Hydrocodone Bitart 1 tab Q4HPRN PRN PO 04/11/24 01:15 04/15/24 21:25 1 TAB Vancomycin HCl 0 ml @ 0 mls/hr UD IV 04/12/24 14:45 Cancel Famotidine 20 mg EOD PO 04/17/24 10:00 04/19/24 09:05 20 MG Apixaban 5 mg BID PO 04/17/24 10:30 04/20/24 09:16 5 MG Dextrose/Sodium Chloride 1,000 ml @ 80 mls/hr [id number] IV 04/20/24 00:15 objective resting . Complaining of constipation Lungs: Bilateral good air entry CVS: S1, S2 regular rate rhythm Abdomen: Soft. Drains present. FURNACE HAND: left sided weakness Extremities: No edema laboratory and microbiology Laboratory Tests 04/19/24 10:38 Test 04/19/24 10:38 Range/Units Serum Glucose 158 H 74-106 mg/dL Problem List Acute kidney injury most likely obstructive in nature Status post cholecystectomy Type 2 diabetes History of CVA Hyperlipidemia Assessment/Plan Improvement in GFR Potassium was replaced yesterday. Imaging with no evidence of biliary leak. Continue with IV antibiotics Continue with IV hydration Labs in a.m.. Awaiting nursing home facility placement Dietary Evaluation Review Recommendations by RD: Dietary education by RD Comments: 1. Recommend timely diet advancement to Low Fat diet s/p cholecystectomy 2. May consider Ensure Clear supplements TID in the interim appropriate for current diet order to optimize nutrition (250 kcal, 8 gm pro, 0 gm fat/carton) 3. Consulted for TPN/EN: TPN is not clinically indicated at this time due to functional GI tract; should nutrition support be desired, would recommend tube feeding with peptide-based, hydrolyzed formula for improved tolerance - however, advise oral diet trial prior to initiating nutrition support measures Expected Outcomes/Goals: Diet advancement, improved nutritional status, post-op healing Plan discussed with: CIERRA Romeo MD Apr 20, 2024 10:14
--- NOTE | 2024-04-20 23:32 | DVHPN2 ---
Progress Note - Dictate Date Seen: Apr 20, 2024 Has the PT tested + for MRSA If YES, has PT been informed?: No Medical Necessity Reason Pt with a Central, PICC or Fol: No Subjective Patient was seen and evaluated in follow up. Reports feeling better today. Patient status post Velazquez catheter placement, urine output of 1.3 L. Minimal drainage from the GLORIA drains. Telemetry reviewed. vital signs Vital Sign Date Time Temp Pulse Resp B/P (MAP) Pulse Ox O2 Delivery O2 Flow Rate FiO2 04/20/24 09:00 98.8 93 16 111/67 (82) 95 98.8 04/20/24 08:00 Room Air* 0 21 Total Intake and Output 04/19/24 04/19/24 04/20/24 15:00 23:00 07:00 Intake Total 100 ml 920 ml 1050 ml Output Total 450 ml 900 ml Balance 100 ml 470 ml 150 ml medications Current Medications Medications Dose Ordered Sig/Aruna Route Start Time Stop Time Status Last Admin Dose Admin Ceftriaxone Sodium/Dextrose 50 ml @ 50 mls/hr DAILY@2100 IV 04/04/24 21:00 Cancel Metronidazole 100 ml @ 100 mls/hr Q8HR IV 04/04/24 06:00 Cancel Atorvastatin Calcium 40 mg HS PO 04/04/24 22:00 04/19/24 22:35 40 MG Diagnostic Test (Pha) 1 strip ACHS 04/04/24 07:00 04/20/24 12:12 1 STRIP Insulin Human Regular HS SC 04/04/24 22:00 04/17/24 22:01 2 UNITS Insulin Human Regular AC SC 04/04/24 07:00 04/20/24 12:14 2 UNITS Dextrose 50 ml UD PRN IV 04/03/24 22:45 Piperacillin Sod/ Tazobactam Sod 100 ml @ 25 mls/hr Q8HR@0100,0900,1700 IV 04/04/24 01:00 04/20/24 09:15 25 MLS/HR Docusate Sodium 100 mg BIDP PO 04/05/24 10:00 04/20/24 09:16 100 MG Ondansetron HCl 4 mg Q6HPRN PRN IV 04/11/24 00:45 Hydromorphone HCl 0.2 mg Q4HPRN PRN IV 04/11/24 01:15 04/19/24 13:53 0.2 MG Hydromorphone HCl 0.4 mg Q4HPRN PRN IV 04/11/24 01:15 04/17/24 04:10 0.4 MG Acetaminophen/ Hydrocodone Bitart 1 tab Q4HPRN PRN PO 04/11/24 01:15 04/15/24 21:25 1 TAB Vancomycin HCl 0 ml @ 0 mls/hr UD IV 04/12/24 14:45 Cancel Famotidine 20 mg EOD PO 04/17/24 10:00 04/19/24 09:05 20 MG Apixaban 5 mg BID PO 04/17/24 10:30 04/20/24 09:16 5 MG Dextrose/Sodium Chloride 1,000 ml @ 80 mls/hr [id number] IV 04/20/24 00:15 objective GENERAL: Awake, alert, oriented. LUNGS: Clear. CARDIOVASCULAR: Heart sounds are good. ABDOMEN: Soft. RUQ TTP. laboratory and microbiology Laboratory Tests 04/19/24 10:38 Test 04/19/24 10:38 Range/Units Serum Glucose 158 H 74-106 mg/dL Problem List Acute RUQ abdominal pain. Acute cholecystitis. Recent history of choledocholithiasis and obstructive jaundice. Status post percutaneous transhepatic biliary drainage. Hypovolemia. Right CVA with left-sided hemiparesis. Diabetes. Hypertension. Noncompliance with medical recommendations. Acute kidney injury. Acute on chronic iron-deficiency anemia from. R CVA with left-sided hemiparesis. Assessment/Plan Continued all current supportive medical care. Dilaudid and Yawkey for pain management. Eliquis. Lipitor. IV antibiotics as ordered. GI prophylactics. Additional plan as per the hospital course. Dietary Evaluation Review Recommendations by RD: Dietary education by RD Comments: 1. Recommend timely diet advancement to Low Fat diet s/p cholecystectomy 2. May consider Ensure Clear supplements TID in the interim appropriate for current diet order to optimize nutrition (250 kcal, 8 gm pro, 0 gm fat/carton) 3. Consulted for TPN/EN: TPN is not clinically indicated at this time due to functional GI tract; should nutrition support be desired, would recommend tube feeding with peptide-based, hydrolyzed formula for improved tolerance - however, advise oral diet trial prior to initiating nutrition support measures Expected Outcomes/Goals: Diet advancement, improved nutritional status, post-op healing Plan discussed with: Patient ANITRA HOOD MD Apr 20, 2024 13:11
--- NOTE | 2024-04-20 23:34 | DVHPN2 ---
Progress Note - Dictate Date Seen: Apr 20, 2024 Has the PT tested + for MRSA If YES, has PT been informed?: No Medical Necessity Reason Pt with a Central, PICC or Fol: No Subjective The patient is seen at Rm 288 A on a tele [place] The patient is noted to worsening of L nasolabial fold droop , expressive aphasia From R MCA CVA * MRI abnormal for multiple acute to subacute infarcts * Continued patient on Eliquis * Patient is being followed by Dr. Morales * Also being evaluated for acute kidney injury-serum creatinine improved but still high at 1.63 mg/dL * Received ultrasound of renals-shows layering of debris at posterior wall of bladder No hydronephrosis was noted * Continued patient on IV hydration * Reviewed input of Dr. Gonzales nephrology * Recovering from postsurgical pains following to laparoscopic cholecystectomy * Receives parenteral analgesics in smaller doses at less frequent basis * Receives IV Zosyn as per consult with Dr. Raul Barroso infectious Disease * Currently followed by Dr. Adriel Mcarthur cardiology Overnight events are reviewed through medical chart and case discussion with patient's assigned RN while making rounds on patient on the day of service vital signs Vital Sign Date Time Temp Pulse Resp B/P (MAP) Pulse Ox O2 Delivery O2 Flow Rate FiO2 04/20/24 22:18 91 16 105/63 04/20/24 21:20 98.1 99 98.1 04/20/24 08:00 Room Air* 0 21 Total Intake and Output 04/19/24 04/19/24 04/20/24 15:00 23:00 07:00 Intake Total 100 ml 920 ml 1050 ml Output Total 450 ml 900 ml Balance 100 ml 470 ml 150 ml medications Current Medications Medications Dose Ordered Sig/Aruna Route Start Time Stop Time Status Last Admin Dose Admin Ceftriaxone Sodium/Dextrose 50 ml @ 50 mls/hr DAILY@2100 IV 04/04/24 21:00 Cancel Metronidazole 100 ml @ 100 mls/hr Q8HR IV 04/04/24 06:00 Cancel Atorvastatin Calcium 40 mg HS PO 04/04/24 22:00 04/20/24 20:56 40 MG Diagnostic Test (Pha) 1 strip ACHS 04/04/24 07:00 04/20/24 21:05 1 STRIP Insulin Human Regular HS SC 04/04/24 22:00 04/17/24 22:01 2 UNITS Insulin Human Regular AC SC 04/04/24 07:00 04/20/24 17:17 2 UNITS Dextrose 50 ml UD PRN IV 04/03/24 22:45 Piperacillin Sod/ Tazobactam Sod 100 ml @ 25 mls/hr Q8HR@0100,0900,1700 IV 04/04/24 01:00 04/20/24 17:20 25 MLS/HR Docusate Sodium 100 mg BIDP PO 04/05/24 10:00 04/20/24 09:16 100 MG Ondansetron HCl 4 mg Q6HPRN PRN IV 04/11/24 00:45 Hydromorphone HCl 0.2 mg Q4HPRN PRN IV 04/11/24 01:15 04/20/24 22:18 0.2 MG Hydromorphone HCl 0.4 mg Q4HPRN PRN IV 04/11/24 01:15 04/17/24 04:10 0.4 MG Acetaminophen/ Hydrocodone Bitart 1 tab Q4HPRN PRN PO 04/11/24 01:15 04/15/24 21:25 1 TAB Vancomycin HCl 0 ml @ 0 mls/hr UD IV 04/12/24 14:45 Cancel Famotidine 20 mg EOD PO 04/17/24 10:00 04/19/24 09:05 20 MG Apixaban 5 mg BID PO 04/17/24 10:30 04/20/24 20:56 5 MG Dextrose/Sodium Chloride 1,000 ml @ 80 mls/hr [id number] IV 04/20/24 00:15 objective Physical Exam General appearance: Well-developed, well-nourished middle-aged male Awake alert oriented x2 Reports post surgical pains Head: Normocephalic nontraumatic Eyes: EOMI, ALIE, sclera nonicteric, conjunctive- pale ENT: No congestion, NSL bilateral symmetrical, oral mucosa wet Neck: Supple, carotid upstroke +2, trachea midline, JVD 2 cm No goiter/stridor, no lymph nodes JVD-3 cm, C spine- Full ROM No use of sternomastoid muscle Chest: Bilateral symmetrical expansions, no costochondral tenderness Lungs: clear breath sounds all over except reduced at bases CVS: PMI-1 cm medial to L MCL in fifth ICS , S1-S2 NSR no S3 GI: Abdomen soft, obese, bowel sounds hypoactive RUQ-postsurgical wound -clean minimally tender GLORIA drain-serous discharge No RUQ tenderness, no rebound tenderness No hepatosplenomegaly, no mass no hernia , : No CVA tenderness, no bladder mass palpable, genitalia-NE SKIN: Turgor dry, color pink, no rash, no icterus, No varicosity, no ulcers or wounds EXTs: No edema, color pink, no rash, no ecchymosis distal pulses +2 capillary refill <2 seconds, No open wounds JOINTS; full range of motion BACK: No apparent lumbosacral spinal muscle tenderness, LYMPH NODES: No cervical, axillary or inguinal lymph nodes Neuro: Awake alert oriented x2 speech nonfluent expressive aphasia Left-sided hemiparesis motor strength three to 4/5 Sensory-changes of DPN as before PSYCH: Affect mildly depressed-denies suicidal ideation laboratory and microbiology Laboratory Tests 04/19/24 10:38 Test 04/19/24 10:38 Range/Units Serum Glucose 158 H 74-106 mg/dL Problem List 1. 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 Status post laparoscopic cholecystectomy...................... Postoperative day 14 Evacuation of biloma, drainage of abscess and lysis of adhesions Status post Acute cholecystitis Complicated by biloma, abscess and adhesions 3. Acute kidney injury From A intravascular depletion B. Post obstructive nephropathy- is ruled out 4. Acute on chronic iron-deficiency anemia from a. postsurgical blood loss vs hemodilution 5. Fairly well-controlled diabetes and hypertension 2' Diagnosis/Comorbidities Noncompliance with medical recommendations Doppler lower Assessment/Plan Medical decision making The patient is seen on a postop day 14 of his receiving laparoscopic cholecystectomy Including evacuation of by biloma, abscess * Remains hemodynamically stable and afebrile * Continued on IV antibiotics-IV Zosyn as per recommendation of Dr. Raul Barroso * Currently receives IV hydration for management of CARMEL * Serum creatinine has improved down to 1.63 mg/dL * Currently followed by Dr. Renner * Also noted symptoms of possible recurrence of R CVA with left hemiparesis * Received MRI of head which reflects multiple infarcts affecting R frontal Temporal-currently followed by Dr. Morales with whom I had a case discussion We will consider continuing Eliquis Noted complete occlusion of R ICA through carotid artery duplex study Carotid artery disease is the pre-existent finding * Patient is noted to have expressive aphasia and confused mental status * Continue patient on oral narcotic analgesics for pain management * Continue soft diet with addition of supplements * Currently followed by Dr. Adriel Mcarthur from Cardiology Treatment Plans Continue hospital stay on telemetry Reviewed results of MRI and carotid artery duplex study Reviewed the input of of Dr. Morales neurology Continue Eliquis Continue IV hydration at 100 mL Repeat BMP in the morning Tapering patient off parenteral analgesics for postsurgical pains Continue IV Zosyn in consult with Dr. Raul Barroso Continue Dr. Adriel Mcarthur Cardiology Refer to social Service for discharge planning Reviewed input of [facility]-GI consult VTE precautions Update patient The patient and and his were well informed by me about 1. Clinical impression, treatment plans, side effects of medications, course of the disease and fair to guarded prognosis 2. All patient's question/ concerns raised by patient are satisfactorily addressed by me Total time spent 45 minutes 40% of time spent interviewing the patient and physical exam 30% of time spent in gathering lab datas and imaging studies 30 % of time is spent in patient education Dietary Evaluation Review Recommendations by RD: Dietary education by RD Comments: 1. Recommend timely diet advancement to Low Fat diet s/p cholecystectomy 2. May consider Ensure Clear supplements TID in the interim appropriate for current diet order to optimize nutrition (250 kcal, 8 gm pro, 0 gm fat/carton) 3. Consulted for TPN/EN: TPN is not clinically indicated at this time due to functional GI tract; should nutrition support be desired, would recommend tube feeding with peptide-based, hydrolyzed formula for improved tolerance - however, advise oral diet trial prior to initiating nutrition support measures Expected Outcomes/Goals: Diet advancement, improved nutritional status, post-op healing ALLA BARROSO MD Apr 20, 2024 23:34
[2024-04-20] MEDS: MELATONIN 5 MG TAB PO ONE (23:56)
[2024-04-21] VITALS (7 sets, daily range): BP systolic 94–109; BP diastolic 54–73; PULSE 76–99; RESP 16–18; TEMP 97.3–98.3; O2SAT 94–97
[2024-04-21 06:35] LABS: Basophils # (auto) 0.1 10 ^3/uL (0-0.2); Eosinophils # (auto) 0.2 10 ^3/uL (0-0.8)
[2024-04-21 06:38] LABS: Basophils % (auto) 0.6 % (0.0-2.0); Eosinophils % (auto) 1.5 % (0.0-7.0); Hematocrit 28.9 % (41.0-53.0); Hemoglobin 9.4 g/dL (13.5-17.5); Lymphocytes # (auto) 1.8 10 ^3/uL (0.4-5.4); Lymphocytes % (auto) 16.9 % (10.0-50.0); Mean Corpuscular Hemoglobin 28.9 pg (28.0-32.0); Mean Corpuscular Hgb Conc. 32.7 g/dL (32.0-36.0); Mean Corpuscular Volume 88.5 fL (80.0-100.0); Monocytes # (auto) 0.7 10 ^3/uL (0-1.3); Monocytes % (auto) 6.9 % (0.0-12.0); Neutrophils % (auto) 74.1 % (37.0-80.0); Red Blood Cells 3.26 10^6/uL (4.5-5.90); Red Cell Distribution Width 14.5 % (11.8-14.3); White Blood Cell 10.8 10^3/uL (4.4-10.8)
[2024-04-21 07:02] LABS: Anion Gap 12 (5-15); Carbon Dioxide 24 mmol/L (20-31)
[2024-04-21 07:03] LABS: Calcium 8.9 mg/dL (8.7-10.4)
[2024-04-21 07:08] LABS: BUN/Creatinine Ratio 7.7 (10.0-20.0); Blood Urea Nitrogen 11 mg/dL (9-23); Chloride 112 mmol/L (98-107); Glucose 116 mg/dL (74-106); Potassium 3.3 mmol/L (3.5-5.1); Sodium 148 mmol/L (136-145)
[2024-04-21 07:21] LABS: Platelet Count (auto) 596 10^3/uL (140-450)
--- NOTE | 2024-04-21 08:52 | DVHPN2 ---
Progress Note - Surgical Date Seen: Apr 21, 2024 Post op day Post op day: 8 Subjective Patient reports: No new complaints Review of Systems: HEENT:Normal, CVS:Normal, RESPIRATORY:Normal, GI:Normal, :Normal, NEURO:Normal Objective Vital signs Vital Sign Date Time Temp Pulse Resp B/P (MAP) Pulse Ox O2 Delivery O2 Flow Rate FiO2 04/21/24 05:00 97.9 92 18 109/62 (78) 96 97.9 04/20/24 19:30 Room Air* 0 21 Total Intake and Output 04/20/24 04/20/24 04/21/24 15:00 23:00 07:00 Intake Total 100 ml 75 ml 435 ml Output Total 475 ml 850 ml Balance 100 ml -400 ml -415 ml Medications Current Medications Medications Dose Ordered Sig/Aruna Route Start Time Stop Time Status Last Admin Dose Admin Ceftriaxone Sodium/Dextrose 50 ml @ 50 mls/hr DAILY@2100 IV 04/04/24 21:00 Cancel Metronidazole 100 ml @ 100 mls/hr Q8HR IV 04/04/24 06:00 Cancel Atorvastatin Calcium 40 mg HS PO 04/04/24 22:00 04/20/24 20:56 40 MG Diagnostic Test (Pha) 1 strip ACHS 04/04/24 07:00 04/21/24 05:28 1 STRIP Insulin Human Regular HS SC 04/04/24 22:00 04/17/24 22:01 2 UNITS Insulin Human Regular AC SC 04/04/24 07:00 04/20/24 17:17 2 UNITS Dextrose 50 ml UD PRN IV 04/03/24 22:45 Piperacillin Sod/ Tazobactam Sod 100 ml @ 25 mls/hr Q8HR@0100,0900,1700 IV 04/04/24 01:00 04/21/24 01:11 25 MLS/HR Docusate Sodium 100 mg BIDP PO 04/05/24 10:00 04/20/24 09:16 100 MG Ondansetron HCl 4 mg Q6HPRN PRN IV 04/11/24 00:45 Hydromorphone HCl 0.2 mg Q4HPRN PRN IV 04/11/24 01:15 04/20/24 22:18 0.2 MG Hydromorphone HCl 0.4 mg Q4HPRN PRN IV 04/11/24 01:15 04/17/24 04:10 0.4 MG Acetaminophen/ Hydrocodone Bitart 1 tab Q4HPRN PRN PO 04/11/24 01:15 04/15/24 21:25 1 TAB Vancomycin HCl 0 ml @ 0 mls/hr UD IV 04/12/24 14:45 Cancel Famotidine 20 mg EOD PO 04/17/24 10:00 04/19/24 09:05 20 MG Apixaban 5 mg BID PO 04/17/24 10:30 04/20/24 20:56 5 MG Dextrose/Sodium Chloride 1,000 ml @ 80 mls/hr [id number] IV 04/20/24 00:15 04/20/24 23:33 80 MLS/HR Laboratory Laboratory Tests 04/21/24 05:42 Test 04/21/24 05:42 Range/Units Serum Glucose 116 H 74-106 mg/dL Microbiology Date/Time Source Procedure Growth Status 04/13/24 16:07 Blood Blood Culture - Final NO GROWTH AFTER 5 DAYS OF INCUBATION. Complete 04/02/24 17:16 Nose MRSA Screen - Final Complete 04/02/24 13:00 Gallbladder Fluid Anaerobic Culture - Final Complete 04/02/24 13:00 Aerobic Culture - Final Pseudomonas aeruginosa Enterobacter aerogenes Complete Examination: GENERAL:Normal, HEENT:Normal, NECK:Normal, LUNGS:Normal, CVS:Normal, ABDOMEN:Abnormal Problem List/Assessment/Plan Assessment and Plan no new complaints abdomen soft , non distended, appropriately tender wounds clean dry and intact GLORIA drains about 150cc serous/brown fluid Plan: continue with current treatment continue IV antibiotics pain control ok to downgrade to telemetry with a sitter Dr. Marin agrees with Plan 04/06/2024 no new complaints abdomen soft , non distended, appropriately tender wounds clean dry and intact GLORIA drains about 15cc serous/brown fluid tolerating diet Plan: continue current treatment IV antibiotics 04/08/2024 @1500 feeling better abdomen soft , non distended, non tender, passing gas, denies nausea or vomiting wounds clean dry and intact GLORIA drains one with bile/serous colored fluid 30cc second drain minimal serous fluid tolerating diet Plan: Empty drains daily IV hydration and antibiotics advance diet as tolerated Discussed with Dr. Marin 04/10/24 feeling better abdomen soft , non distended, non tender, passing gas, denies nausea or vomiting wounds clean dry and intact GLORIA drains one with bile/serous colored fluid 15cc, drainage decreased per assessment and notes second drain minimal serous fluid tolerating diet Plan: Empty drains daily IV hydration and antibiotics advance diet as tolerated Discussed with Dr. Marin S/P laparoscopic cholecystectomy patient resting in bed, GLORIA drains one with minimal serous fluid 2nd GLORIA drain 30cc bile colored fluid (total output 100cc over 24 hours) -febrile -elevated WBC Plan: Continue IV antibiotics replace Velazquez with an external catheter blood culture chest X-ray tomorrow AM GLORIA drains to Bulb suction Plan discussed with Dr. Marin and agrees 04/12/2024 s/p laparoscopic cholecystectomy no new complaints awake resting comfortably in bed abdominal wounds clean dry and francisco intact GLORIA drains one with 20cc bile fluid second drain 5 cc serous fluid , output decreasing pending labs , review of chest x ray Plan: GLORIA drains bulb suction use of incentive spirometer continue IV antibiotics labs pending blood cultures 04/14/24 patient status post laparoscopic cholecystectomy GLORIA drains 100cc bile colored fluid abdomen soft , non distended bowel movement this morning elevated WBC Plan: continue with current treatment continue with infectious disease recommendations Discussed with Dr. Marin 04/16/2024 patent status post laparoscopic cholecystectomy GLORIA drain 100 cc bile fluid GLORIA drain #2 minimal serous fluid drainage abdomen soft , non distended, non tender, bowel movements elevated WBC Plan: continue IV antibiotics as per Infectious disease Empty GLORIA drains when half full and reapply bulb suction 04/18/24 patient status post laparoscopic cholecystectomy no new complaints , patient afebrile, WBC 13.0 , minimal drainage from GLORIA drains this morning abdomen soft non distended, non tender Plan: Discussed with Dr. Marin order HIDA scan rule out biliary leak continue current treatment 04/19/2024 patient status post laparoscopic cholecystectomy no new complaints , patient afebrile, WBC 13.0 , minimal drainage from GLORIA drains this morning abdomen soft non distended, slightly tender HIDA scan and CT reviewed Plan: redraw labs today continue IV antibiotics 04/21/2024 Patient status pulse laparoscopic cholecystectomy No new complaint patient states feeling OK White blood count 10.8 abdomen soft non-distended nontender Notes reviewed Plan: OK to discharge in next 24 hours if WBC is normal Continue current treatment Patient to follow up in one week from discharge GLORIA bulbs to bulb suction empty daily Plan discussed with Plan discussed with: Patient, Other (Dr. Marin ) Visit Coding Surgery Date of Service if different f: Apr 21, 2024 Billing Provider: YOEL MARIN MD Surgery Visit Codes: [id number] INP/OBS CARE(HIGH) [facility], [place] Apr 21, 2024 08:52
--- NOTE | 2024-04-21 12:04 | DVHPN2 ---
Progress Note - Dictate Date Seen: Apr 21, 2024 Has the PT tested + for MRSA If YES, has PT been informed?: No Medical Necessity Reason Pt with a Central, PICC or Fol: No Subjective Patient was seen and evaluated in follow up. No overnight events. No new complaint patient states feeling OK. HGB 9.4, HCT 28.9, NA 148, K 3.3, Logistics Account Manager 1.42. Telemetry reviewed. vital signs Vital Sign Date Time Temp Pulse Resp B/P (MAP) Pulse Ox O2 Delivery O2 Flow Rate FiO2 04/21/24 09:00 98.3 94 16 97/73 (81) 94 98.3 04/20/24 19:30 Room Air* 0 21 Total Intake and Output 04/20/24 04/20/24 04/21/24 15:00 23:00 07:00 Intake Total 100 ml 75 ml 435 ml Output Total 475 ml 850 ml Balance 100 ml -400 ml -415 ml medications Current Medications Medications Dose Ordered Sig/Aruna Route Start Time Stop Time Status Last Admin Dose Admin Ceftriaxone Sodium/Dextrose 50 ml @ 50 mls/hr DAILY@2100 IV 04/04/24 21:00 Cancel Metronidazole 100 ml @ 100 mls/hr Q8HR IV 04/04/24 06:00 Cancel Atorvastatin Calcium 40 mg HS PO 04/04/24 22:00 04/20/24 20:56 40 MG Diagnostic Test (Pha) 1 strip ACHS 04/04/24 07:00 04/21/24 05:28 1 STRIP Insulin Human Regular HS SC 04/04/24 22:00 04/17/24 22:01 2 UNITS Insulin Human Regular AC SC 04/04/24 07:00 04/20/24 17:17 2 UNITS Dextrose 50 ml UD PRN IV 04/03/24 22:45 Piperacillin Sod/ Tazobactam Sod 100 ml @ 25 mls/hr Q8HR@0100,0900,1700 IV 04/04/24 01:00 04/21/24 09:46 25 MLS/HR Docusate Sodium 100 mg BIDP PO 04/05/24 10:00 04/21/24 09:45 100 MG Ondansetron HCl 4 mg Q6HPRN PRN IV 04/11/24 00:45 Hydromorphone HCl 0.2 mg Q4HPRN PRN IV 04/11/24 01:15 04/20/24 22:18 0.2 MG Hydromorphone HCl 0.4 mg Q4HPRN PRN IV 04/11/24 01:15 04/17/24 04:10 0.4 MG Acetaminophen/ Hydrocodone Bitart 1 tab Q4HPRN PRN PO 04/11/24 01:15 04/21/24 10:12 1 TAB Vancomycin HCl 0 ml @ 0 mls/hr UD IV 04/12/24 14:45 Cancel Famotidine 20 mg EOD PO 04/17/24 10:00 04/21/24 09:45 20 MG Apixaban 5 mg BID PO 04/17/24 10:30 04/21/24 09:45 5 MG Dextrose/Sodium Chloride 1,000 ml @ 80 mls/hr [id number] IV 04/20/24 00:15 04/20/24 23:33 80 MLS/HR objective GENERAL: Awake, alert, oriented. LUNGS: Clear. CARDIOVASCULAR: Heart sounds are good. ABDOMEN: Soft. RUQ TTP. laboratory and microbiology Laboratory Tests 04/21/24 05:42 Test 04/21/24 05:42 Range/Units Serum Glucose 116 H 74-106 mg/dL Problem List Acute RUQ abdominal pain. Acute cholecystitis. Recent history of choledocholithiasis and obstructive jaundice. Status post percutaneous transhepatic biliary drainage. Hypovolemia. Right CVA with left-sided hemiparesis. Diabetes. Hypertension. Noncompliance with medical recommendations. Acute kidney injury. Acute on chronic iron-deficiency anemia from. R CVA with left-sided hemiparesis. Assessment/Plan Continued all current supportive medical care. Dilaudid and [place] for pain management. Eliquis. Lipitor. IV antibiotics as ordered. GI prophylactics. Additional plan as per the hospital course. Dietary Evaluation Review Recommendations by RD: Dietary education by RD Comments: 1. Recommend timely diet advancement to Low Fat diet s/p cholecystectomy 2. May consider Ensure Clear supplements TID in the interim appropriate for current diet order to optimize nutrition (250 kcal, 8 gm pro, 0 gm fat/carton) 3. Consulted for TPN/EN: TPN is not clinically indicated at this time due to functional GI tract; should nutrition support be desired, would recommend tube feeding with peptide-based, hydrolyzed formula for improved tolerance - however, advise oral diet trial prior to initiating nutrition support measures Expected Outcomes/Goals: Diet advancement, improved nutritional status, post-op healing Plan discussed with: Patient ANITRA HOOD MD Apr 21, 2024 12:03
[2024-04-21] MEDS: D5W/SOD CHL 0.45% 1,000 ML IV SCH (15:30)
[2024-04-21] MEDS ORDERED: FAMO-12 PO (15:33)
[2024-04-21] MEDS ORDERED: APIX5TAB PO (15:33)
[2024-04-21] MEDS ORDERED: INSREGI SC (15:33)
[2024-04-21] MEDS ORDERED: ATOR20TA50 PO (15:33)
--- NOTE | 2024-04-21 17:48 | DVHPN2 ---
Progress Note - Dictate Date Seen: Apr 21, 2024 Has the PT tested + for MRSA If YES, has PT been informed?: No Medical Necessity Reason Pt with a Central, PICC or Fol: No Subjective resting vital signs Vital Sign Date Time Temp Pulse Resp B/P (MAP) Pulse Ox O2 Delivery O2 Flow Rate FiO2 04/21/24 13:00 97.3 96 16 94/55 (68) 96 97.3 04/21/24 08:06 Room Air* 0 21 Total Intake and Output 04/20/24 04/20/24 04/21/24 15:00 23:00 07:00 Intake Total 100 ml 75 ml 435 ml Output Total 475 ml 850 ml Balance 100 ml -400 ml -415 ml medications Current Medications Medications Dose Ordered Sig/Aruna Route Start Time Stop Time Status Last Admin Dose Admin Ceftriaxone Sodium/Dextrose 50 ml @ 50 mls/hr DAILY@2100 IV 04/04/24 21:00 Cancel Metronidazole 100 ml @ 100 mls/hr Q8HR IV 04/04/24 06:00 Cancel Atorvastatin Calcium 40 mg HS PO 04/04/24 22:00 04/20/24 20:56 40 MG Diagnostic Test (Pha) 1 strip ACHS 04/04/24 07:00 04/21/24 11:30 1 STRIP Insulin Human Regular HS SC 04/04/24 22:00 04/17/24 22:01 2 UNITS Insulin Human Regular AC SC 04/04/24 07:00 04/21/24 11:30 2 UNITS Dextrose 50 ml UD PRN IV 04/03/24 22:45 Piperacillin Sod/ Tazobactam Sod 100 ml @ 25 mls/hr Q8HR@0100,0900,1700 IV 04/04/24 01:00 04/21/24 09:46 25 MLS/HR Docusate Sodium 100 mg BIDP PO 04/05/24 10:00 04/21/24 09:45 100 MG Ondansetron HCl 4 mg Q6HPRN PRN IV 04/11/24 00:45 Hydromorphone HCl 0.2 mg Q4HPRN PRN IV 04/11/24 01:15 04/20/24 22:18 0.2 MG Hydromorphone HCl 0.4 mg Q4HPRN PRN IV 04/11/24 01:15 04/17/24 04:10 0.4 MG Acetaminophen/ Hydrocodone Bitart 1 tab Q4HPRN PRN PO 04/11/24 01:15 04/21/24 10:12 1 TAB Vancomycin HCl 0 ml @ 0 mls/hr UD IV 04/12/24 14:45 Cancel Famotidine 20 mg EOD PO 04/17/24 10:00 04/21/24 09:45 20 MG Apixaban 5 mg BID PO 04/17/24 10:30 04/21/24 09:45 5 MG Dextrose/Sodium Chloride 1,000 ml @ 100 mls/hr Q10H IV 04/21/24 15:30 objective resting . Complaining of constipation Lungs: Bilateral good air entry CVS: S1, S2 regular rate rhythm Abdomen: Soft. Drains present. 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 Continue with IV antibiotics Continue with IV hydration daily BMP Awaiting fpc facility placement Dietary Evaluation Review Recommendations by RD: Dietary education by RD Comments: 1. Recommend timely diet advancement to Low Fat diet s/p cholecystectomy 2. May consider Ensure Clear supplements TID in the interim appropriate for current diet order to optimize nutrition (250 kcal, 8 gm pro, 0 gm fat/carton) 3. Consulted for TPN/EN: TPN is not clinically indicated at this time due to functional GI tract; should nutrition support be desired, would recommend tube feeding with peptide-based, hydrolyzed formula for improved tolerance - however, advise oral diet trial prior to initiating nutrition support measures Expected Outcomes/Goals: Diet advancement, improved nutritional status, post-op healing Plan discussed with: Patient VERONICA FERRARA MD Apr 21, 2024 17:48
--- NOTE | 2024-04-21 23:02 | DVHPN2 ---
Progress Note - Dictate Date Seen: Apr 21, 2024 Has the PT tested + for MRSA If YES, has PT been informed?: No Medical Necessity Reason Pt with a Central, PICC or Fol: No Subjective The patient is seen at [facility] on a tele [place] The patient is noted to worsening of L nasolabial fold droop , expressive aphasia From R MCA CVA * MRI abnormal for multiple acute to subacute infarcts * Continued patient on Eliquis * Patient is being followed by Dr. Morales * Also being evaluated for acute kidney injury-serum creatinine improved but still high at 1.63 mg/dL * Received ultrasound of renals-shows layering of debris at posterior wall of bladder No hydronephrosis was noted * Continued patient on IV hydration * Reviewed input of Dr. Gonzales nephrology * Recovering from postsurgical pains following to laparoscopic cholecystectomy * Receives parenteral analgesics in smaller doses at less frequent basis * Receives IV Zosyn as per consult with Dr. Raul Barroso infectious Disease * Currently followed by Dr. Adriel Mcarthur cardiology Overnight events are reviewed through medical chart and case discussion with patient's assigned RN while making rounds on patient on the day of service vital signs Vital Sign Date Time Temp Pulse Resp B/P (MAP) Pulse Ox O2 Delivery O2 Flow Rate FiO2 04/21/24 21:00 97.9 76 18 106/54 (71) 96 97.9 04/21/24 20:00 Room Air* 0 21 Total Intake and Output 04/20/24 04/20/24 04/21/24 15:00 23:00 07:00 Intake Total 100 ml 75 ml 435 ml Output Total 475 ml 850 ml Balance 100 ml -400 ml -415 ml medications Current Medications Medications Dose Ordered Sig/Aruna Route Start Time Stop Time Status Last Admin Dose Admin Ceftriaxone Sodium/Dextrose 50 ml @ 50 mls/hr DAILY@2100 IV 04/04/24 21:00 Cancel Metronidazole 100 ml @ 100 mls/hr Q8HR IV 04/04/24 06:00 Cancel Atorvastatin Calcium 40 mg HS PO 04/04/24 22:00 04/21/24 22:10 40 MG Diagnostic Test (Pha) 1 strip ACHS 04/04/24 07:00 04/21/24 22:00 1 STRIP Insulin Human Regular HS SC 04/04/24 22:00 04/17/24 22:01 2 UNITS Insulin Human Regular AC SC 04/04/24 07:00 04/21/24 11:30 2 UNITS Dextrose 50 ml UD PRN IV 04/03/24 22:45 Piperacillin Sod/ Tazobactam Sod 100 ml @ 25 mls/hr Q8HR@0100,0900,1700 IV 04/04/24 01:00 04/21/24 18:11 25 MLS/HR Docusate Sodium 100 mg BIDP PO 04/05/24 10:00 04/21/24 09:45 100 MG Ondansetron HCl 4 mg Q6HPRN PRN IV 04/11/24 00:45 Hydromorphone HCl 0.2 mg Q4HPRN PRN IV 04/11/24 01:15 04/20/24 22:18 0.2 MG Hydromorphone HCl 0.4 mg Q4HPRN PRN IV 04/11/24 01:15 04/17/24 04:10 0.4 MG Acetaminophen/ Hydrocodone Bitart 1 tab Q4HPRN PRN PO 04/11/24 01:15 04/21/24 10:12 1 TAB Vancomycin HCl 0 ml @ 0 mls/hr UD IV 04/12/24 14:45 Cancel Famotidine 20 mg EOD PO 04/17/24 10:00 04/21/24 09:45 20 MG Apixaban 5 mg BID PO 04/17/24 10:30 04/21/24 22:09 5 MG Dextrose/Sodium Chloride 1,000 ml @ 100 mls/hr Q10H IV 04/21/24 15:30 04/21/24 15:30 100 MLS/HR objective Physical Exam General appearance: Well-developed, well-nourished middle-aged male Awake alert oriented x2 Reports post surgical pains Head: Normocephalic nontraumatic Eyes: EOMI, ALIE, sclera nonicteric, conjunctive- pale ENT: No congestion, NSL bilateral symmetrical, oral mucosa wet Neck: Supple, carotid upstroke +2, trachea midline, JVD 2 cm No goiter/stridor, no lymph nodes JVD-3 cm, C spine- Full ROM No use of sternomastoid muscle Chest: Bilateral symmetrical expansions, no costochondral tenderness Lungs: clear breath sounds all over except reduced at bases CVS: PMI-1 cm medial to L MCL in fifth ICS , S1-S2 NSR no S3 GI: Abdomen soft, obese, bowel sounds hypoactive RUQ-postsurgical wound -clean minimally tender GLORIA drain-serous discharge No RUQ tenderness, no rebound tenderness No hepatosplenomegaly, no mass no hernia , : No CVA tenderness, no bladder mass palpable, genitalia-NE SKIN: Turgor dry, color pink, no rash, no icterus, No varicosity, no ulcers or wounds EXTs: No edema, color pink, no rash, no ecchymosis distal pulses +2 capillary refill <2 seconds, No open wounds JOINTS; full range of motion BACK: No apparent lumbosacral spinal muscle tenderness, LYMPH NODES: No cervical, axillary or inguinal lymph nodes Neuro: Awake alert oriented x2 speech nonfluent expressive aphasia Left-sided hemiparesis motor strength three to 4/5 Sensory-changes of DPN as before PSYCH: Affect mildly depressed-denies suicidal ideation laboratory and microbiology Laboratory Tests 04/21/24 05:42 Test 04/21/24 05:42 Range/Units Serum Glucose 116 H 74-106 mg/dL Problem List 1. 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 Status post laparoscopic cholecystectomy...................... Postoperative day 14 Evacuation of biloma, drainage of abscess and lysis of adhesions Status post Acute cholecystitis Complicated by biloma, abscess and adhesions 3. Acute kidney injury From A intravascular depletion B. Post obstructive nephropathy- is ruled out 4. Acute on chronic iron-deficiency anemia from a. postsurgical blood loss vs hemodilution 5. Fairly well-controlled diabetes and hypertension 2' Diagnosis/Comorbidities Noncompliance with medical recommendations Doppler lower Assessment/Plan Medical decision making The patient is seen on a postop day 14 of his receiving laparoscopic cholecystectomy Including evacuation of by biloma, abscess * Remains hemodynamically stable and afebrile * Continued on IV antibiotics-IV Zosyn as per recommendation of Dr. Raul Barroso * Currently receives IV hydration for management of CARMEL * Serum creatinine has improved down to 1.63 mg/dL * Currently followed by Dr. Renner * Also noted symptoms of possible recurrence of R CVA with left hemiparesis * Received MRI of head which reflects multiple infarcts affecting R frontal Temporal-currently followed by Dr. Morales with whom I had a case discussion We will consider continuing Eliquis Noted complete occlusion of R ICA through carotid artery duplex study Carotid artery disease is the pre-existent finding * Patient is noted to have expressive aphasia and confused mental status * Continue patient on oral narcotic analgesics for pain management * Continue soft diet with addition of supplements * Currently followed by Dr. Adriel Mcarthur from Cardiology Treatment Plans Continue hospital stay on telemetry Reviewed results of MRI and carotid artery duplex study Reviewed the input of of Dr. Morales neurology Continue Eliquis Continue IV hydration at 100 mL Repeat BMP in the morning Tapering patient off parenteral analgesics for postsurgical pains Continue IV Zosyn in consult with Dr. Raul Barroso Continue Dr. Adriel Mcarthur Cardiology Refer to social Service for discharge planning Reviewed input of STRATEGY EXECUTION CONSULTANT-GI consult VTE precautions Update patient The patient and and his were well informed by me about 1. Clinical impression, treatment plans, side effects of medications, course of the disease and fair to guarded prognosis 2. All patient's question/ concerns raised by patient are satisfactorily addressed by me Total time spent 45 minutes 40% of time spent interviewing the patient and physical exam 30% of time spent in gathering lab datas and imaging studies 30 % of time is spent in patient education Dietary Evaluation Review Recommendations by RD: Dietary education by RD Comments: 1. Recommend timely diet advancement to Low Fat diet s/p cholecystectomy 2. May consider Ensure Clear supplements TID in the interim appropriate for current diet order to optimize nutrition (250 kcal, 8 gm pro, 0 gm fat/carton) 3. Consulted for TPN/EN: TPN is not clinically indicated at this time due to functional GI tract; should nutrition support be desired, would recommend tube feeding with peptide-based, hydrolyzed formula for improved tolerance - however, advise oral diet trial prior to initiating nutrition support measures Expected Outcomes/Goals: Diet advancement, improved nutritional status, post-op healing ALLA BARROSO MD Apr 21, 2024 23:02
[2024-04-22] VITALS (7 sets, daily range): BP systolic 90–109; BP diastolic 56–63; PULSE 87–103; RESP 16–20; TEMP 97.3–98.2; O2SAT 97–100
--- NOTE | 2024-04-22 12:46 | DVHPN2 ---
Progress Note - Dictate Date Seen: Apr 22, 2024 Has the PT tested + for MRSA If YES, has PT been informed?: No Medical Necessity Reason Pt with a Central, PICC or Fol: No Subjective Patient was seen and evaluated in follow up. No overnight events. Patient denies any pain or discomfort. BS are in the 130s. SW is working on placement. Telemetry reviewed. vital signs Vital Sign Date Time Temp Pulse Resp B/P (MAP) Pulse Ox O2 Delivery O2 Flow Rate FiO2 04/22/24 09:15 98.2 99 20 104/56 (72) 100 98.2 04/22/24 08:00 Room Air* 0 21 Total Intake and Output 04/21/24 04/21/24 04/22/24 15:00 23:00 07:00 Intake Total 100 ml 200 ml 200 ml Output Total 400 ml 700 ml Balance 100 ml -200 ml -500 ml medications Current Medications Medications Dose Ordered Sig/Aruna Route Start Time Stop Time Status Last Admin Dose Admin Ceftriaxone Sodium/Dextrose 50 ml @ 50 mls/hr DAILY@2100 IV 04/04/24 21:00 Cancel Metronidazole 100 ml @ 100 mls/hr Q8HR IV 04/04/24 06:00 Cancel Atorvastatin Calcium 40 mg HS PO 04/04/24 22:00 04/21/24 22:10 40 MG Diagnostic Test (Pha) 1 strip ACHS 04/04/24 07:00 04/22/24 11:44 1 STRIP Insulin Human Regular HS SC 04/04/24 22:00 04/17/24 22:01 2 UNITS Insulin Human Regular AC SC 04/04/24 07:00 04/22/24 11:52 2 UNITS Dextrose 50 ml UD PRN IV 04/03/24 22:45 Piperacillin Sod/ Tazobactam Sod 100 ml @ 25 mls/hr Q8HR@0100,0900,1700 IV 04/04/24 01:00 04/22/24 09:41 25 MLS/HR Docusate Sodium 100 mg BIDP PO 04/05/24 10:00 04/22/24 09:42 100 MG Ondansetron HCl 4 mg Q6HPRN PRN IV 04/11/24 00:45 Hydromorphone HCl 0.2 mg Q4HPRN PRN IV 04/11/24 01:15 04/20/24 22:18 0.2 MG Hydromorphone HCl 0.4 mg Q4HPRN PRN IV 04/11/24 01:15 04/17/24 04:10 0.4 MG Acetaminophen/ Hydrocodone Bitart 1 tab Q4HPRN PRN PO 04/11/24 01:15 04/21/24 10:12 1 TAB Vancomycin HCl 0 ml @ 0 mls/hr UD IV 04/12/24 14:45 Cancel Famotidine 20 mg EOD PO 04/17/24 10:00 04/22/24 01:51 20 MG Apixaban 5 mg BID PO 04/17/24 10:30 04/22/24 09:42 5 MG Dextrose/Sodium Chloride 1,000 ml @ 100 mls/hr Q10H IV 04/21/24 15:30 04/22/24 01:22 100 MLS/HR objective GENERAL: Awake, alert, oriented. LUNGS: Clear. CARDIOVASCULAR: Heart sounds are good. ABDOMEN: Soft. RUQ TTP. laboratory and microbiology Laboratory Tests 04/21/24 05:42 Test 04/21/24 05:42 Range/Units Serum Glucose 116 H 74-106 mg/dL Problem List Acute RUQ abdominal pain. Acute cholecystitis. Recent history of choledocholithiasis and obstructive jaundice. Status post percutaneous transhepatic biliary drainage. Hypovolemia. Right CVA with left-sided hemiparesis. Diabetes. Hypertension. Noncompliance with medical recommendations. Acute kidney injury. Acute on chronic iron-deficiency anemia from. R CVA with left-sided hemiparesis. Assessment/Plan Continued all current supportive medical care. Dilaudid and Converse for pain management. Eliquis. Lipitor. IV antibiotics as ordered. GI prophylactics. Additional plan as per the hospital course. Dietary Evaluation Review Recommendations by RD: Dietary education by RD Comments: 1. Recommend timely diet advancement to Low Fat diet s/p cholecystectomy 2. May consider Ensure Clear supplements TID in the interim appropriate for current diet order to optimize nutrition (250 kcal, 8 gm pro, 0 gm fat/carton) 3. Consulted for TPN/EN: TPN is not clinically indicated at this time due to functional GI tract; should nutrition support be desired, would recommend tube feeding with peptide-based, hydrolyzed formula for improved tolerance - however, advise oral diet trial prior to initiating nutrition support measures Expected Outcomes/Goals: Diet advancement, improved nutritional status, post-op healing Plan discussed with: Patient ANITRA HOOD MD Apr 22, 2024 12:46
[2024-04-22 13:48] LABS: Eosinophils # (auto) 0.2 10 ^3/uL (0-0.8); Hemoglobin 9.4 g/dL (13.5-17.5); Neutrophils # (auto) 8.7 10 ^3/uL (1.6-8.6); Sodium 145 mmol/L (136-145)
[2024-04-22 13:49] LABS: Anion Gap 10 (5-15); Carbon Dioxide 24 mmol/L (20-31)
[2024-04-22 13:50] LABS: Basophils # (auto) 0.2 10 ^3/uL (0-0.2); Basophils % (auto) 1.3 % (0.0-2.0); Calcium 8.9 mg/dL (8.7-10.4); Eosinophils % (auto) 1.5 % (0.0-7.0); Hematocrit 28.3 % (41.0-53.0); Lymphocytes % (auto) 17.3 % (10.0-50.0); Mean Corpuscular Hemoglobin 29.3 pg (28.0-32.0); Mean Corpuscular Volume 88.8 fL (80.0-100.0); Monocytes # (auto) 0.6 10 ^3/uL (0-1.3); Monocytes % (auto) 5.4 % (0.0-12.0); Neutrophils % (auto) 74.5 % (37.0-80.0); Platelet Count (auto) 591 10^3/uL (140-450); Red Blood Cells 3.19 10^6/uL (4.5-5.90); Red Cell Distribution Width 14.6 % (11.8-14.3); White Blood Cell 11.7 10^3/uL (4.4-10.8)
[2024-04-22 13:54] LABS: BUN/Creatinine Ratio 6.6 (10.0-20.0)
[2024-04-22 14:03] LABS: Blood Urea Nitrogen 9 mg/dL (9-23); Chloride 111 mmol/L (98-107); Glucose 118 mg/dL (74-106); Potassium 3.2 mmol/L (3.5-5.1)
--- NOTE | 2024-04-22 15:26 | DVHPN2 ---
Progress Note - Dictate Date Seen: Apr 22, 2024 Has the PT tested + for MRSA If YES, has PT been informed?: No Medical Necessity Reason Pt with a Central, PICC or Fol: No Subjective resting vital signs Vital Sign Date Time Temp Pulse Resp B/P (MAP) Pulse Ox O2 Delivery O2 Flow Rate FiO2 04/22/24 12:33 98.1 91 20 90/57 (68) 97 98.1 04/22/24 08:00 Room Air* 0 21 Total Intake and Output 04/21/24 04/21/24 04/22/24 15:00 23:00 07:00 Intake Total 100 ml 200 ml 200 ml Output Total 400 ml 700 ml Balance 100 ml -200 ml -500 ml medications Current Medications Medications Dose Ordered Sig/Aruna Route Start Time Stop Time Status Last Admin Dose Admin Ceftriaxone Sodium/Dextrose 50 ml @ 50 mls/hr DAILY@2100 IV 04/04/24 21:00 Cancel Metronidazole 100 ml @ 100 mls/hr Q8HR IV 04/04/24 06:00 Cancel Atorvastatin Calcium 40 mg HS PO 04/04/24 22:00 04/21/24 22:10 40 MG Diagnostic Test (Pha) 1 strip ACHS 04/04/24 07:00 04/22/24 11:44 1 STRIP Insulin Human Regular HS SC 04/04/24 22:00 04/17/24 22:01 2 UNITS Insulin Human Regular AC SC 04/04/24 07:00 04/22/24 11:52 2 UNITS Dextrose 50 ml UD PRN IV 04/03/24 22:45 Piperacillin Sod/ Tazobactam Sod 100 ml @ 25 mls/hr Q8HR@0100,0900,1700 IV 04/04/24 01:00 04/22/24 09:41 25 MLS/HR Docusate Sodium 100 mg BIDP PO 04/05/24 10:00 04/22/24 09:42 100 MG Ondansetron HCl 4 mg Q6HPRN PRN IV 04/11/24 00:45 Hydromorphone HCl 0.2 mg Q4HPRN PRN IV 04/11/24 01:15 04/20/24 22:18 0.2 MG Hydromorphone HCl 0.4 mg Q4HPRN PRN IV 04/11/24 01:15 04/17/24 04:10 0.4 MG Acetaminophen/ Hydrocodone Bitart 1 tab Q4HPRN PRN PO 04/11/24 01:15 04/21/24 10:12 1 TAB Vancomycin HCl 0 ml @ 0 mls/hr UD IV 04/12/24 14:45 Cancel Famotidine 20 mg EOD PO 04/17/24 10:00 04/22/24 01:51 20 MG Apixaban 5 mg BID PO 04/17/24 10:30 04/22/24 09:42 5 MG Dextrose/Sodium Chloride 1,000 ml @ 100 mls/hr Q10H IV 04/21/24 15:30 04/22/24 01:22 100 MLS/HR objective resting . Complaining of constipation Lungs: Bilateral good air entry CVS: S1, S2 regular rate rhythm Abdomen: Soft. Drains present. [facility] REPORTER: left sided weakness Extremities: No edema laboratory and microbiology Laboratory Tests 04/22/24 13:13 Test 04/22/24 13:13 Range/Units Serum Glucose 118 H 74-106 mg/dL Assessment/Plan Assessment: Acute kidney injury most likely obstructive in nature Hypernatremia, Improving Hypokalemia Status post cholecystectomy Type 2 diabetes History of CVA Hyperlipidemia Plan: GFR improving continue D5W supplement KCl Imaging with no evidence of biliary leak. Continue with IV antibiotics daily BMP Awaiting fdc facility placement Dietary Evaluation Review Recommendations by RD: Dietary education by RD Comments: 1. Recommend timely diet advancement to Low Fat diet s/p cholecystectomy 2. May consider Ensure Clear supplements TID in the interim appropriate for current diet order to optimize nutrition (250 kcal, 8 gm pro, 0 gm fat/carton) 3. Consulted for TPN/EN: TPN is not clinically indicated at this time due to functional GI tract; should nutrition support be desired, would recommend tube feeding with peptide-based, hydrolyzed formula for improved tolerance - however, advise oral diet trial prior to initiating nutrition support measures Expected Outcomes/Goals: Diet advancement, improved nutritional status, post-op healing Plan discussed with: Patient VERONICA FERRARA MD Apr 22, 2024 15:26
[2024-04-22] MEDS: POTASSIUM CHL 20MEQ/100ML 100 ML IV ONE (16:46)
--- NOTE | 2024-04-22 17:18 | DVHPN2 ---
Progress Note - Dictate Date Seen: Apr 22, 2024 Has the PT tested + for MRSA If YES, has PT been informed?: No Medical Necessity Reason Pt with a Central, PICC or Fol: No Subjective No new complaints; Patient will be taking a shower Tolerating diet Minimal drainage from the GLORIA drains vital signs Vital Sign Date Time Temp Pulse Resp B/P (MAP) Pulse Ox O2 Delivery O2 Flow Rate FiO2 04/22/24 12:33 98.1 91 20 90/57 (68) 97 98.1 04/22/24 08:00 Room Air* 0 21 Total Intake and Output 04/21/24 04/21/24 04/22/24 14:59 22:59 06:59 Intake Total 100 ml 200 ml 200 ml Output Total 400 ml 700 ml Balance 100 ml -200 ml -500 ml medications Current Medications Medications Dose Ordered Sig/Aruna Route Start Time Stop Time Status Last Admin Dose Admin Ceftriaxone Sodium/Dextrose 50 ml @ 50 mls/hr DAILY@2100 IV 04/04/24 21:00 Cancel Metronidazole 100 ml @ 100 mls/hr Q8HR IV 04/04/24 06:00 Cancel Atorvastatin Calcium 40 mg HS PO 04/04/24 22:00 04/21/24 22:10 40 MG Diagnostic Test (Pha) 1 strip ACHS 04/04/24 07:00 04/22/24 16:49 1 STRIP Insulin Human Regular HS SC 04/04/24 22:00 04/17/24 22:01 2 UNITS Insulin Human Regular AC SC 04/04/24 07:00 04/22/24 11:52 2 UNITS Dextrose 50 ml UD PRN IV 04/03/24 22:45 Piperacillin Sod/ Tazobactam Sod 100 ml @ 25 mls/hr Q8HR@0100,0900,1700 IV 04/04/24 01:00 04/22/24 09:41 25 MLS/HR Docusate Sodium 100 mg BIDP PO 04/05/24 10:00 04/22/24 09:42 100 MG Ondansetron HCl 4 mg Q6HPRN PRN IV 04/11/24 00:45 Hydromorphone HCl 0.2 mg Q4HPRN PRN IV 04/11/24 01:15 04/20/24 22:18 0.2 MG Hydromorphone HCl 0.4 mg Q4HPRN PRN IV 04/11/24 01:15 04/17/24 04:10 0.4 MG Acetaminophen/ Hydrocodone Bitart 1 tab Q4HPRN PRN PO 04/11/24 01:15 04/21/24 10:12 1 TAB Vancomycin HCl 0 ml @ 0 mls/hr UD IV 04/12/24 14:45 Cancel Famotidine 20 mg EOD PO 04/17/24 10:00 04/22/24 01:51 20 MG Apixaban 5 mg BID PO 04/17/24 10:30 04/22/24 09:42 5 MG Dextrose/Sodium Chloride 1,000 ml @ 100 mls/hr Q10H IV 04/21/24 15:30 04/22/24 01:22 100 MLS/HR objective Examination: GENERAL:Normal, HEENT:Normal, NECK:Normal, LUNGS:Normal, CVS:Normal, ABDOMEN:Abnormal (GLORIA drains ), MSK:Normal, SKIN:Normal, NEURO:Normal laboratory and microbiology Laboratory Tests 04/22/24 13:13 Test 04/22/24 13:13 Range/Units Serum Glucose 118 H 74-106 mg/dL Problems(with codes): (1) Diabetes (2) Cerebrovascular accident (CVA) with left hemiparesis (3) Leukocytosis (4) Hypotension (5) Abdominal pain (6) Sepsis (7) Acute cholecystitis (8) S/P cholecystectomy Prognosis Plan Notes from surgical consult OK to discharge in next 24 hours if WBC is normal Continue current treatment Patient to follow up in one week from discharge GLORIA bulbs to bulb suction empty daily Patient will likely have his GLORIA drains removed as an outpatient Dietary Evaluation Review Recommendations by RD: Dietary education by RD Comments: 1. Recommend timely diet advancement to Low Fat diet s/p cholecystectomy 2. May consider Ensure Clear supplements TID in the interim appropriate for current diet order to optimize nutrition (250 kcal, 8 gm pro, 0 gm fat/carton) 3. Consulted for TPN/EN: TPN is not clinically indicated at this time due to functional GI tract; should nutrition support be desired, would recommend tube feeding with peptide-based, hydrolyzed formula for improved tolerance - however, advise oral diet trial prior to initiating nutrition support measures Expected Outcomes/Goals: Diet advancement, improved nutritional status, post-op healing Plan discussed with: Patient EMILY NELSON MD Apr 22, 2024 17:18
[2024-04-22] MEDS: levoFLOXacin 250 MG TAB PO SCH (22:00)
--- NOTE | 2024-04-22 22:33 | DVHPN2 ---
Progress Note - Dictate Date Seen: Apr 22, 2024 Has the PT tested + for MRSA If YES, has PT been informed?: No Medical Necessity Reason Pt with a Central, PICC or Fol: No Subjective Mr. Corcoran is a 68 years old right-handed gentleman with a history of hypertension, diabetes, dyslipidemia, coronary artery disease, heart attack, atrial fibrillation, right carotid occlusion, stroke with residual left-sided weakness/bad defined, gallstone, the patient was transferred from his [facility] to [facility] on 03/28/24 with a chief company of abdominal pain, deteriorating of his general condition. I have seen and examined the patient, I have discussed with his nurse, he is awake, oriented to person, place, voice clear, reasonable social skills No change in the left homonymous hemianopsia and hemiplegia WBC/HB/PLT/MCV, 04/14/2024: 17.3/9.9/381/90.6 04/15/2024: 16.4/9.5/374/89.1 BUN/CR, 04/14/2024: 12/1.58 Liver function tests, 04/14/2024: Unremarkable TG/HDL/LDL/HDL, 03/2024: 116/80/47/16 Carotid Doppler 04/15/2024: 1. Occlusion of proximal right ICA. 2. No hemodynamically significant stenosis in left carotid system. Echocardiogram, 04/01/2024 DILATED ALL CARDIAC CHAMBERS MODERATELY DILATED LV MODERATE DEGREE LV GLOBAL HYPOKINESIS LV EF IS ONLY 25% NORMAL VALVES DYSKINESIS OF IVS NO EFFUSION DILATED CARDIOMYOPATHY WITH MODERATE DEGREE LV SYSTOLIC DYSFUNCTION MRI head, 04/15/2024: 1. There are multiple scattered small and patchy foci of restricted diffusion involving the right frontal, parietal, temporal and occipital lobes consistent with multiple areas of acute to subacute infarcts. There is no evidence of acute hemorrhage. There is no significant edema or mass effect. 2. There are small chronic cortical infarcts in the right parietal and occipital lobes. 3. Mild chronic microvascular white matter ischemic changes vital signs Vital Sign Date Time Temp Pulse Resp B/P (MAP) Pulse Ox O2 Delivery O2 Flow Rate FiO2 04/22/24 17:00 98.0 89 20 103/63 (76) 99 98.0 04/22/24 08:00 Room Air* 0 21 Total Intake and Output 3/05/1304/21/24 04/22/24 15:00 23:00 07:00 Intake Total 100 ml 200 ml 200 ml Output Total 400 ml 700 ml Balance 100 ml -200 ml -500 ml medications Current Medications Medications Dose Ordered Sig/Aruna Route Start Time Stop Time Status Last Admin Dose Admin Ceftriaxone Sodium/Dextrose 50 ml @ 50 mls/hr DAILY@2100 IV 04/04/24 21:00 Cancel Metronidazole 100 ml @ 100 mls/hr Q8HR IV 04/04/24 06:00 Cancel Atorvastatin Calcium 40 mg HS PO 04/04/24 22:00 04/22/24 21:31 40 MG Diagnostic Test (Pha) 1 strip ACHS 04/04/24 07:00 04/22/24 22:19 1 STRIP Insulin Human Regular HS SC 04/04/24 22:00 04/17/24 22:01 2 UNITS Insulin Human Regular AC SC 04/04/24 07:00 04/22/24 11:52 2 UNITS Dextrose 50 ml UD PRN IV 04/03/24 22:45 Docusate Sodium 100 mg BIDP PO 04/05/24 10:00 04/22/24 21:31 100 MG Ondansetron HCl 4 mg Q6HPRN PRN IV 04/11/24 00:45 Hydromorphone HCl 0.2 mg Q4HPRN PRN IV 04/11/24 01:15 04/20/24 22:18 0.2 MG Hydromorphone HCl 0.4 mg Q4HPRN PRN IV 04/11/24 01:15 04/17/24 04:10 0.4 MG Acetaminophen/ Hydrocodone Bitart 1 tab Q4HPRN PRN PO 04/11/24 01:15 04/21/24 10:12 1 TAB Vancomycin HCl 0 ml @ 0 mls/hr UD IV 04/12/24 14:45 Cancel Famotidine 20 mg EOD PO 04/17/24 10:00 04/22/24 01:51 20 MG Apixaban 5 mg BID PO 04/17/24 10:30 04/22/24 21:31 5 MG Dextrose/Sodium Chloride 1,000 ml @ 100 mls/hr Q10H IV 04/21/24 15:30 04/22/24 21:32 100 MLS/HR Levofloxacin 750 mg Q24H PO 04/22/24 22:00 objective General: the patient is well developed and nourished. No acute distress. MENTAL STATUS: Awake and alert. Oriented to person, place SPEECH, LANGUAGE, HIGHER CORTICAL FUNCTION: no aphasia, he was mild dysathria. CRANIAL NERVES: Dense left homonymous hemianopsia Pupils are equal, round and reactive. EOMs full and conjugate. Facial sensation intact in all three divisions bilaterally. Mandibular strength intact. Left facial weakness of upper motor neuron pattern SENSATION: Sensation to touch and pinprick is normal. MOTOR: Normal tone in the upper and lower extremity. Normal muscle bulk. No fasciculations. No abnormal movements or posturing. Muscle strength of the major groups in the right extremities is: Upper: 5/5, Lower: 3-4/5. Muscle strength of the major groups in the lower extremities: Upper extremity: 0-1/5. Lower extremity: 1-2/5 REFLEXES: Deep tendon reflexes are symmetrical. No pathological reflexes. CEREBELLAR/COORDINATION: Deferred GAIT/STATION: deferred laboratory and microbiology Laboratory Tests 04/22/24 13:13 Test 04/22/24 13:13 Range/Units Serum Glucose 118 H 74-106 mg/dL Problem List Worsened slurred speech, left facial drooping, to rule out acute stroke Chronic stroke with residual left-sided hemiparesis, bed bound Left homonymous hemianopsia, secondary to stroke Atrial fibrillation Assessment/Plan Monitoring Supportive treatment Telemetry Eliquis 5 mg b.i.d. Lipitor 40 mg daily GI prophylax Cardiology on case Infectious disease on case More recommendation per clinical course This medical document was created using an electronic medical record system with [employer] dictation system. Although this document has been carefully reviewed, there may still be some phonetic and typographical errors. These areas are purely typographical due to imperfections of the software programs, and do not reflect any compromise in the patient's medical care. Prognosis poor Dietary Evaluation Review Recommendations by RD: Dietary education by RD Comments: 1. Recommend timely diet advancement to Low Fat diet s/p cholecystectomy 2. May consider Ensure Clear supplements TID in the interim appropriate for current diet order to optimize nutrition (250 kcal, 8 gm pro, 0 gm fat/carton) 3. Consulted for TPN/EN: TPN is not clinically indicated at this time due to functional GI tract; should nutrition support be desired, would recommend tube feeding with peptide-based, hydrolyzed formula for improved tolerance - however, advise oral diet trial prior to initiating nutrition support measures Expected Outcomes/Goals: Diet advancement, improved nutritional status, post-op healing Plan discussed with: Other RADHA CORNEJO MD Apr 22, 2024 22:33
[2024-04-23 01:00] VITALS: BP 103/63; PULSE 102; RESP 16; TEMP 98.5; O2SAT 96
[2024-04-23 05:00] VITALS: BP 100/50; PULSE 105; RESP 16; TEMP 98.2; O2SAT 99
[2024-04-23 08:00] VITALS: PULSE 101; PULSE 98; RESP 18; O2SAT 96
[2024-04-23 08:53] VITALS: BP 130/78; PULSE 101; RESP 18; TEMP 98.1; O2SAT 96
--- NOTE | 2024-04-23 10:58 | DVHPN2 ---
Progress Note - Surgical Date Seen: Apr 23, 2024 Post op day Post op day: 17 Subjective Patient reports: No new complaints, Feels better Review of Systems: Not Done Objective Vital signs Vital Sign Date Time Temp Pulse Resp B/P (MAP) Pulse Ox O2 Delivery O2 Flow Rate FiO2 04/23/24 08:53 98.1 101 18 130/78 (95) 96 98.1 04/22/24 20:00 Room Air* 0 21 Total Intake and Output 04/22/24 04/22/24 04/23/24 15:00 23:00 07:00 Intake Total 1241 ml 1340 ml 650 ml Output Total 781 ml 1900 ml Balance 1241 ml 559 ml -1250 ml Medications Current Medications Medications Dose Ordered Sig/Aruna Route Start Time Stop Time Status Last Admin Dose Admin Ceftriaxone Sodium/Dextrose 50 ml @ 50 mls/hr DAILY@2100 IV 04/04/24 21:00 Cancel Metronidazole 100 ml @ 100 mls/hr Q8HR IV 04/04/24 06:00 Cancel Atorvastatin Calcium 40 mg HS PO 04/04/24 22:00 04/22/24 21:31 40 MG Diagnostic Test (Pha) 1 strip ACHS 04/04/24 07:00 04/23/24 06:15 1 STRIP Insulin Human Regular HS SC 04/04/24 22:00 04/17/24 22:01 2 UNITS Insulin Human Regular AC SC 04/04/24 07:00 04/22/24 11:52 2 UNITS Dextrose 50 ml UD PRN IV 04/03/24 22:45 Docusate Sodium 100 mg BIDP PO 04/05/24 10:00 04/22/24 21:31 100 MG Ondansetron HCl 4 mg Q6HPRN PRN IV 04/11/24 00:45 Hydromorphone HCl 0.2 mg Q4HPRN PRN IV 04/11/24 01:15 04/20/24 22:18 0.2 MG Hydromorphone HCl 0.4 mg Q4HPRN PRN IV 04/11/24 01:15 04/17/24 04:10 0.4 MG Acetaminophen/ Hydrocodone Bitart 1 tab Q4HPRN PRN PO 04/11/24 01:15 04/21/24 10:12 1 TAB Vancomycin HCl 0 ml @ 0 mls/hr UD IV 04/12/24 14:45 Cancel Famotidine 20 mg EOD PO 04/17/24 10:00 04/22/24 01:51 20 MG Apixaban 5 mg BID PO 04/17/24 10:30 04/22/24 21:31 5 MG Dextrose/Sodium Chloride 1,000 ml @ 100 mls/hr Q10H IV 04/21/24 15:30 04/22/24 21:32 100 MLS/HR Levofloxacin 750 mg Q24H PO 04/22/24 22:00 04/22/24 22:00 750 MG Laboratory Laboratory Tests 04/22/24 13:13 Test 04/22/24 13:13 Range/Units Serum Glucose 118 H 74-106 mg/dL Microbiology Date/Time Source Procedure Growth Status 04/13/24 16:07 Blood Blood Culture - Final NO GROWTH AFTER 5 DAYS OF INCUBATION. Complete 04/02/24 17:16 Nose MRSA Screen - Final Complete 04/02/24 13:00 Gallbladder Fluid Anaerobic Culture - Final Complete 04/02/24 13:00 Aerobic Culture - Final Pseudomonas aeruginosa Enterobacter aerogenes Complete Examination: GENERAL:Normal, HEENT:Normal, NECK:Normal, LUNGS:Normal, CVS:Normal, ABDOMEN:Normal Problem List/Assessment/Plan Assessment and Plan no new complaints abdomen soft , non distended, appropriately tender wounds clean dry and intact GLORIA drains about 150cc serous/brown fluid Plan: continue with current treatment continue IV antibiotics pain control ok to downgrade to telemetry with a sitter Dr. Marin agrees with Plan 04/06/2024 no new complaints abdomen soft , non distended, appropriately tender wounds clean dry and intact GLORIA drains about 15cc serous/brown fluid tolerating diet Plan: continue current treatment IV antibiotics 04/08/2024 @1500 feeling better abdomen soft , non distended, non tender, passing gas, denies nausea or vomiting wounds clean dry and intact GLORIA drains one with bile/serous colored fluid 30cc second drain minimal serous fluid tolerating diet Plan: Empty drains daily IV hydration and antibiotics advance diet as tolerated Discussed with Dr. Marin 04/10/24 feeling better abdomen soft , non distended, non tender, passing gas, denies nausea or vomiting wounds clean dry and intact GLORIA drains one with bile/serous colored fluid 15cc, drainage decreased per assessment and notes second drain minimal serous fluid tolerating diet Plan: Empty drains daily IV hydration and antibiotics advance diet as tolerated Discussed with Dr. Marin S/P laparoscopic cholecystectomy patient resting in bed, GLORIA drains one with minimal serous fluid 2nd GLORIA drain 30cc bile colored fluid (total output 100cc over 24 hours) -febrile -elevated WBC Plan: Continue IV antibiotics replace Velazquez with an external catheter blood culture chest X-ray tomorrow AM GLORIA drains to Bulb suction Plan discussed with Dr. Marin and agrees 04/12/2024 s/p laparoscopic cholecystectomy no new complaints awake resting comfortably in bed abdominal wounds clean dry and francisco intact GLORIA drains one with 20cc bile fluid second drain 5 cc serous fluid , output decreasing pending labs , review of chest x ray Plan: GLORIA drains bulb suction use of incentive spirometer continue IV antibiotics labs pending blood cultures 04/14/24 patient status post laparoscopic cholecystectomy GLORIA drains 100cc bile colored fluid abdomen soft , non distended bowel movement this morning elevated WBC Plan: continue with current treatment continue with infectious disease recommendations Discussed with Dr. Marin 04/16/2024 patent status post laparoscopic cholecystectomy GLORIA drain 100 cc bile fluid GLORIA drain #2 minimal serous fluid drainage abdomen soft , non distended, non tender, bowel movements elevated WBC Plan: continue IV antibiotics as per Infectious disease Empty GLORIA drains when half full and reapply bulb suction 04/18/24 patient status post laparoscopic cholecystectomy no new complaints , patient afebrile, WBC 13.0 , minimal drainage from GLORIA drains this morning abdomen soft non distended, non tender Plan: Discussed with Dr. Marin order HIDA scan rule out biliary leak continue current treatment 04/19/2024 patient status post laparoscopic cholecystectomy no new complaints , patient afebrile, WBC 13.0 , minimal drainage from GLORIA drains this morning abdomen soft non distended, slightly tender HIDA scan and CT reviewed Plan: redraw labs today continue IV antibiotics 04/21/2024 Patient status pulse laparoscopic cholecystectomy No new complaint patient states feeling OK White blood count 10.8 abdomen soft non-distended nontender Notes reviewed Plan: OK to discharge in next 24 hours if WBC is normal Continue current treatment Patient to follow up in one week from discharge GLORIA bulbs to bulb suction empty daily 04/23/24 Patient status pulse laparoscopic cholecystectomy drains removed, no output cleared for discharge per surgery point of view patient to follow up in clinic in 2 weeks Plan discussed with Plan discussed with: Patient Visit Coding Surgery Date of Service if different f: Apr 23, 2024 Billing Provider: YOEL MARIN MD Surgery Visit Codes: [id number] INP/OBS CARE(HIGH) LAMAR CHOE DNP Apr 23, 2024 10:58
--- NOTE | 2024-04-23 14:11 | DVHPN2 ---
Progress Note - Dictate Date Seen: Apr 23, 2024 Has the PT tested + for MRSA If YES, has PT been informed?: No Medical Necessity Reason Pt with a Central, PICC or Fol: No Subjective Patient was seen and evaluated in follow up. Patient is resting in bed. Patient report feeling well. Patient has been accepted to [facility], pending available bed. Telemetry reviewed. vital signs Vital Sign Date Time Temp Pulse Resp B/P (MAP) Pulse Ox O2 Delivery O2 Flow Rate FiO2 04/23/24 08:53 98.1 101 18 130/78 (95) 96 98.1 04/23/24 08:00 Room Air* 0 21 Total Intake and Output 04/22/24 04/22/24 04/23/24 15:00 23:00 07:00 Intake Total 1241 ml 1340 ml 650 ml Output Total 781 ml 1900 ml Balance 1241 ml 559 ml -1250 ml medications Current Medications Medications Dose Ordered Sig/Aruna Route Start Time Stop Time Status Last Admin Dose Admin Ceftriaxone Sodium/Dextrose 50 ml @ 50 mls/hr DAILY@2100 IV 04/04/24 21:00 Cancel Metronidazole 100 ml @ 100 mls/hr Q8HR IV 04/04/24 06:00 Cancel Atorvastatin Calcium 40 mg HS PO 04/04/24 22:00 04/22/24 21:31 40 MG Diagnostic Test (Pha) 1 strip ACHS 04/04/24 07:00 04/23/24 06:15 1 STRIP Insulin Human Regular HS SC 04/04/24 22:00 04/17/24 22:01 2 UNITS Insulin Human Regular AC SC 04/04/24 07:00 04/22/24 11:52 2 UNITS Dextrose 50 ml UD PRN IV 04/03/24 22:45 Docusate Sodium 100 mg BIDP PO 04/05/24 10:00 04/22/24 21:31 100 MG Ondansetron HCl 4 mg Q6HPRN PRN IV 04/11/24 00:45 Hydromorphone HCl 0.2 mg Q4HPRN PRN IV 04/11/24 01:15 04/20/24 22:18 0.2 MG Hydromorphone HCl 0.4 mg Q4HPRN PRN IV 04/11/24 01:15 04/17/24 04:10 0.4 MG Acetaminophen/ Hydrocodone Bitart 1 tab Q4HPRN PRN PO 04/11/24 01:15 04/21/24 10:12 1 TAB Vancomycin HCl 0 ml @ 0 mls/hr UD IV 04/12/24 14:45 Cancel Famotidine 20 mg EOD PO 04/17/24 10:00 04/22/24 01:51 20 MG Apixaban 5 mg BID PO 04/17/24 10:30 04/22/24 21:31 5 MG Dextrose/Sodium Chloride 1,000 ml @ 100 mls/hr Q10H IV 04/21/24 15:30 04/22/24 21:32 100 MLS/HR Levofloxacin 750 mg Q24H PO 04/22/24 22:00 04/22/24 22:00 750 MG objective GENERAL: Awake, alert, oriented. LUNGS: Clear. CARDIOVASCULAR: Heart sounds are good. ABDOMEN: Soft. RUQ TTP. laboratory and microbiology Laboratory Tests 04/22/24 13:13 Test 04/22/24 13:13 Range/Units Serum Glucose 118 H 74-106 mg/dL Problem List Acute RUQ abdominal pain. Acute cholecystitis. Recent history of choledocholithiasis and obstructive jaundice. Status post percutaneous transhepatic biliary drainage. Hypovolemia. Right CVA with left-sided hemiparesis. Diabetes. Hypertension. Noncompliance with medical recommendations. Acute kidney injury. Acute on chronic iron-deficiency anemia from. R CVA with left-sided hemiparesis. Assessment/Plan Continued all current supportive medical care. Dilaudid and [place] for pain management. Eliquis. Lipitor. IV antibiotics as ordered. GI prophylactics. Additional plan as per the hospital course. Dietary Evaluation Review Recommendations by RD: Dietary education by RD Comments: 1. Recommend timely diet advancement to Low Fat diet s/p cholecystectomy 2. May consider Ensure Clear supplements TID in the interim appropriate for current diet order to optimize nutrition (250 kcal, 8 gm pro, 0 gm fat/carton) 3. Consulted for TPN/EN: TPN is not clinically indicated at this time due to functional GI tract; should nutrition support be desired, would recommend tube feeding with peptide-based, hydrolyzed formula for improved tolerance - however, advise oral diet trial prior to initiating nutrition support measures Expected Outcomes/Goals: Diet advancement, improved nutritional status, post-op healing Plan discussed with: Patient HOOD,MUKESHCHANDRA M MD Apr 23, 2024 12:43
--- NOTE | 2024-04-23 18:33 | DVHPN2 ---
Progress Note - Dictate Date Seen: Apr 22, 2024 Has the PT tested + for MRSA If YES, has PT been informed?: No Medical Necessity Reason Pt with a Central, PICC or Fol: No Subjective The patient is seen at [facility]m [facility] A on a tele [place] The patient is noted to worsening of L nasolabial fold droop , expressive aphasia From R MCA CVA * MRI abnormal for multiple acute to subacute infarcts * Continued patient on Eliquis * Patient is being followed by Dr. Morales * Also being evaluated for acute kidney injury-serum creatinine improved but still high at 1.63 mg/dL * Received ultrasound of renals-shows layering of debris at posterior wall of bladder No hydronephrosis was noted * Continued patient on IV hydration * Reviewed input of Dr. Gonzales nephrology * Recovering from postsurgical pains following to laparoscopic cholecystectomy * Receives parenteral analgesics in smaller doses at less frequent basis * Receives IV Zosyn as per consult with Dr. Raul Barroso infectious Disease * Currently followed by Dr. Adriel Mcarthur cardiology Overnight events are reviewed through medical chart and case discussion with patient's assigned RN while making rounds on patient on the day of service vital signs Vital Sign Date Time Temp Pulse Resp B/P (MAP) Pulse Ox O2 Delivery O2 Flow Rate FiO2 04/22/24 12:33 98.1 91 20 90/57 (68) 97 98.1 04/22/24 08:00 Room Air* 0 21 Total Intake and Output 04/21/24 04/21/24 04/22/24 14:59 22:59 06:59 Intake Total 100 ml 200 ml 200 ml Output Total 400 ml 700 ml Balance 100 ml -200 ml -500 ml medications Current Medications Medications Dose Ordered Sig/Aruna Route Start Time Stop Time Status Last Admin Dose Admin Ceftriaxone Sodium/Dextrose 50 ml @ 50 mls/hr DAILY@2100 IV 04/04/24 21:00 Cancel Metronidazole 100 ml @ 100 mls/hr Q8HR IV 04/04/24 06:00 Cancel Vancomycin HCl 0 ml @ 0 mls/hr UD IV 04/12/24 14:45 Cancel objective Physical Exam General appearance: Well-developed, well-nourished middle-aged male Awake alert oriented x2 Reports post surgical pains Head: Normocephalic nontraumatic Eyes: EOMI, ALIE, sclera nonicteric, conjunctive- pale ENT: No congestion, NSL bilateral symmetrical, oral mucosa wet Neck: Supple, carotid upstroke +2, trachea midline, JVD 2 cm No goiter/stridor, no lymph nodes JVD-3 cm, C spine- Full ROM No use of sternomastoid muscle Chest: Bilateral symmetrical expansions, no costochondral tenderness Lungs: clear breath sounds all over except reduced at bases CVS: PMI-1 cm medial to L MCL in fifth ICS , S1-S2 NSR no S3 GI: Abdomen soft, obese, bowel sounds hypoactive RUQ-postsurgical wound -clean minimally tender GLORIA drain-serous discharge No RUQ tenderness, no rebound tenderness No hepatosplenomegaly, no mass no hernia , : No CVA tenderness, no bladder mass palpable, genitalia-NE SKIN: Turgor dry, color pink, no rash, no icterus, No varicosity, no ulcers or wounds EXTs: No edema, color pink, no rash, no ecchymosis distal pulses +2 capillary refill <2 seconds, No open wounds JOINTS; full range of motion BACK: No apparent lumbosacral spinal muscle tenderness, LYMPH NODES: No cervical, axillary or inguinal lymph nodes Neuro: Awake alert oriented x2 speech nonfluent expressive aphasia Left-sided hemiparesis motor strength three to 4/5 Sensory-changes of DPN as before PSYCH: Affect mildly depressed-denies suicidal ideation laboratory and microbiology Laboratory Tests 04/22/24 13:13 Test 04/22/24 13:13 Range/Units Serum Glucose 118 H 74-106 mg/dL Problem List 1. 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 Status post laparoscopic cholecystectomy...................... Postoperative day 14 Evacuation of biloma, drainage of abscess and lysis of adhesions Status post Acute cholecystitis Complicated by biloma, abscess and adhesions 3. Acute kidney injury From A intravascular depletion B. Post obstructive nephropathy- is ruled out 4. Acute on chronic iron-deficiency anemia from a. postsurgical blood loss vs hemodilution 5. Fairly well-controlled diabetes and hypertension 2' Diagnosis/Comorbidities Noncompliance with medical recommendations Doppler lower Assessment/Plan Medical decision making The patient is seen on a postop day 14 of his receiving laparoscopic cholecystectomy Including evacuation of by biloma, abscess * Remains hemodynamically stable and afebrile * Continued on IV antibiotics-IV Zosyn as per recommendation of Dr. Raul Barroso * Currently receives IV hydration for management of CARMEL * Serum creatinine has improved down to 1.63 mg/dL * Currently followed by Dr. Renner * Also noted symptoms of possible recurrence of R CVA with left hemiparesis * Received MRI of head which reflects multiple infarcts affecting R frontal Temporal-currently followed by Dr. Morales with whom I had a case discussion We will consider continuing Eliquis Noted complete occlusion of R ICA through carotid artery duplex study Carotid artery disease is the pre-existent finding * Patient is noted to have expressive aphasia and confused mental status * Continue patient on oral narcotic analgesics for pain management * Continue soft diet with addition of supplements * Currently followed by Dr. Adriel Mcarthur from Cardiology Treatment Plans Continue hospital stay on telemetry Reviewed results of MRI and carotid artery duplex study Reviewed the input of of Dr. Morales neurology Continue Eliquis Continue IV hydration at 100 mL Repeat BMP in the morning Tapering patient off parenteral analgesics for postsurgical pains Continue IV Zosyn in consult with Dr. Raul Barroso Continue Dr. Adriel Mcarthur Cardiology Refer to social Service for discharge planning Reviewed input of [facility] consult VTE precautions Update patient The patient and and his were well informed by me about 1. Clinical impression, treatment plans, side effects of medications, course of the disease and fair to guarded prognosis 2. All patient's question/ concerns raised by patient are satisfactorily addressed by me Total time spent 45 minutes 40% of time spent interviewing the patient and physical exam 30% of time spent in gathering lab datas and imaging studies 30 % of time is spent in patient education Dietary Evaluation Review Recommendations by RD: Dietary education by RD Comments: 1. Recommend timely diet advancement to Low Fat diet s/p cholecystectomy 2. May consider Ensure Clear supplements TID in the interim appropriate for current diet order to optimize nutrition (250 kcal, 8 gm pro, 0 gm fat/carton) 3. Consulted for TPN/EN: TPN is not clinically indicated at this time due to functional GI tract; should nutrition support be desired, would recommend tube feeding with peptide-based, hydrolyzed formula for improved tolerance - however, advise oral diet trial prior to initiating nutrition support measures Expected Outcomes/Goals: Diet advancement, improved nutritional status, post-op healing ALLA BARROSO MD Apr 23, 2024 18:33
--- NOTE | 2024-04-23 18:34 | DVHPN2 ---
Progress Note - Dictate Date Seen: Apr 23, 2024 Has the PT tested + for MRSA If YES, has PT been informed?: No Medical Necessity Reason Pt with a Central, PICC or Fol: No Subjective The patient is seen at Rm [facility] A on a tele [place] The patient is noted to worsening of L nasolabial fold droop , expressive aphasia From R MCA CVA * MRI abnormal for multiple acute to subacute infarcts * Continued patient on Eliquis * Patient is being followed by Dr. Morales * Also being evaluated for acute kidney injury-serum creatinine improved at 1.37 mg/dL * Received ultrasound of renals-shows layering of debris at posterior wall of bladder No hydronephrosis was noted * Continued patient on IV hydration * Reviewed input of Dr. Gonzales nephrology * Recovering from postsurgical pains following to laparoscopic cholecystectomy * Receives parenteral analgesics in smaller doses at less frequent basis * Receives IV Zosyn as per consult with Dr. Raul Barroso infectious Disease * Currently followed by Dr. Adriel Mcarthur cardiology Overnight events are reviewed through medical chart and case discussion with patient's assigned RN while making rounds on patient on the day of service vital signs Vital Sign Date Time Temp Pulse Resp B/P (MAP) Pulse Ox O2 Delivery O2 Flow Rate FiO2 04/23/24 08:53 98.1 101 18 130/78 (95) 96 98.1 04/23/24 08:00 Room Air* 0 21 Total Intake and Output 04/22/24 04/22/24 04/23/24 15:00 23:00 07:00 Intake Total 1241 ml 1340 ml 650 ml Output Total 781 ml 1900 ml Balance 1241 ml 559 ml -1250 ml medications Current Medications Medications Dose Ordered Sig/Aruna Route Start Time Stop Time Status Last Admin Dose Admin Ceftriaxone Sodium/Dextrose 50 ml @ 50 mls/hr DAILY@2100 IV 04/04/24 21:00 Cancel Metronidazole 100 ml @ 100 mls/hr Q8HR IV 04/04/24 06:00 Cancel Vancomycin HCl 0 ml @ 0 mls/hr UD IV 04/12/24 14:45 Cancel objective Physical Exam General appearance: Well-developed, well-nourished middle-aged male Awake alert oriented x2 Reports post surgical pains Head: Normocephalic nontraumatic Eyes: EOMI, ALIE, sclera nonicteric, conjunctive- pale ENT: No congestion, NSL bilateral symmetrical, oral mucosa wet Neck: Supple, carotid upstroke +2, trachea midline, JVD 2 cm No goiter/stridor, no lymph nodes JVD-3 cm, C spine- Full ROM No use of sternomastoid muscle Chest: Bilateral symmetrical expansions, no costochondral tenderness Lungs: clear breath sounds all over except reduced at bases CVS: PMI-1 cm medial to L MCL in fifth ICS , S1-S2 NSR no S3 GI: Abdomen soft, obese, bowel sounds hypoactive RUQ-postsurgical wound -clean minimally tender GLORIA drain-serous discharge No RUQ tenderness, no rebound tenderness No hepatosplenomegaly, no mass no hernia , : No CVA tenderness, no bladder mass palpable, genitalia-NE SKIN: Turgor dry, color pink, no rash, no icterus, No varicosity, no ulcers or wounds EXTs: No edema, color pink, no rash, no ecchymosis distal pulses +2 capillary refill <2 seconds, No open wounds JOINTS; full range of motion BACK: No apparent lumbosacral spinal muscle tenderness, LYMPH NODES: No cervical, axillary or inguinal lymph nodes Neuro: Awake alert oriented x2 speech nonfluent expressive aphasia Left-sided hemiparesis motor strength three to 4/5 Sensory-changes of DPN as before PSYCH: Affect mildly depressed-denies suicidal ideation laboratory and microbiology Laboratory Tests 04/22/24 13:13 Test 04/22/24 13:13 Range/Units Serum Glucose 118 H 74-106 mg/dL Problem List 1. 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 Status post laparoscopic cholecystectomy...................... Postoperative day 14 Evacuation of biloma, drainage of abscess and lysis of adhesions Status post Acute cholecystitis Complicated by biloma, abscess and adhesions 3. Acute kidney injury From A intravascular depletion B. Post obstructive nephropathy- is ruled out 4. Acute on chronic iron-deficiency anemia from a. postsurgical blood loss vs hemodilution 5. Fairly well-controlled diabetes and hypertension 2' Diagnosis/Comorbidities Noncompliance with medical recommendations Doppler lower Assessment/Plan Medical decision making The patient is seen on a postop day 14 of his receiving laparoscopic cholecystectomy Including evacuation of by biloma, abscess * Remains hemodynamically stable and afebrile * Continued on IV antibiotics-IV Zosyn as per recommendation of Dr. Raul Barroso * Currently receives IV hydration for management of CARMEL * Serum creatinine has improved down to 1.63 mg/dL * Currently followed by Dr. Renner * Also noted symptoms of possible recurrence of R CVA with left hemiparesis * Received MRI of head which reflects multiple infarcts affecting R frontal Temporal-currently followed by Dr. Morales with whom I had a case discussion We will consider continuing Eliquis Noted complete occlusion of R ICA through carotid artery duplex study Carotid artery disease is the pre-existent finding * Patient is noted to have expressive aphasia and confused mental status * Continue patient on oral narcotic analgesics for pain management * Continue soft diet with addition of supplements * Currently followed by Dr. Adriel Mcarthur from Cardiology Treatment Plans Continue hospital stay on telemetry Reviewed results of MRI and carotid artery duplex study Reviewed the input of of Dr. Morales neurology Continue Eliquis Continue IV hydration at 100 mL Repeat BMP in the morning Tapering patient off parenteral analgesics for postsurgical pains Continue IV Zosyn in consult with Dr. Raul Barroso Continue Dr. Adriel Mcarthur Cardiology Refer to social Service for discharge planning Reviewed input of [employer]-GI consult VTE precautions Update patient The patient and and his were well informed by me about 1. Clinical impression, treatment plans, side effects of medications, course of the disease and fair to guarded prognosis 2. All patient's question/ concerns raised by patient are satisfactorily addressed by me Total time spent 45 minutes 40% of time spent interviewing the patient and physical exam 30% of time spent in gathering lab datas and imaging studies 30 % of time is spent in patient education Dietary Evaluation Review Recommendations by RD: Dietary education by RD Comments: 1. Recommend timely diet advancement to Low Fat diet s/p cholecystectomy 2. May consider Ensure Clear supplements TID in the interim appropriate for current diet order to optimize nutrition (250 kcal, 8 gm pro, 0 gm fat/carton) 3. Consulted for TPN/EN: TPN is not clinically indicated at this time due to functional GI tract; should nutrition support be desired, would recommend tube feeding with peptide-based, hydrolyzed formula for improved tolerance - however, advise oral diet trial prior to initiating nutrition support measures Expected Outcomes/Goals: Diet advancement, improved nutritional status, post-op healing ALLA BARROSO MD Apr 23, 2024 18:34
--- NOTE | 2024-04-23 20:49 | DVHPN2 ---
Consult Progress Note Date Seen: Apr 21, 2024 Subjective Patient reports: No new complaints (no acute events overnight ), Other Objective vital signs Vital Sign Date Time Temp Pulse Resp B/P (MAP) Pulse Ox O2 Delivery O2 Flow Rate FiO2 04/23/24 08:53 98.1 101 18 130/78 (95) 96 98.1 04/23/24 08:00 Room Air* 0 21 Total Intake and Output 04/22/24 04/22/24 04/23/24 15:00 23:00 07:00 Intake Total 1241 ml 1340 ml 650 ml Output Total 781 ml 1900 ml Balance 1241 ml 559 ml -1250 ml medications Current Medications Medications Dose Ordered Sig/Aruna Route Start Time Stop Time Status Last Admin Dose Admin Ceftriaxone Sodium/Dextrose 50 ml @ 50 mls/hr DAILY@2100 IV 04/04/24 21:00 Cancel Metronidazole 100 ml @ 100 mls/hr Q8HR IV 04/04/24 06:00 Cancel Vancomycin HCl 0 ml @ 0 mls/hr UD IV 04/12/24 14:45 Cancel Physical Exam: General: NAD Neck: Supple. No masses. HEENT: PERRL. Normal lids and conjunctiva. Moist mucous membranes. Oropharynx without lesions, exudates, or excessive erythema. Normal appearance of the external aspects of the nose and ears. Heart: Regular rhythm, normal rate. No murmur. No lower extremity edema. Lungs: Diminished breath sounds at the bases bilaterally. No wheezes. No crackles. Abdomen: Soft. Non-tender. Non-distended. No masses or abdominal hernia. Msk: No digital cyanosis. Normal strength and tone in all 4 limbs. Skin: Warm and dry, no rashes. Neuro: Alert, more aware, following commands. No facial droop or slurred speech. Extra-ocular movements intact. Sensation intact to soft touch in all 4 limbs. Psych: Appropriate mood. Full affect. Oriented to person, place, time, and situation. laboratory and microbiology Laboratory Tests 04/22/24 13:13 Test 04/22/24 13:13 Range/Units Serum Glucose 118 H 74-106 mg/dL Problem List/Assessment/Plan Problems(with codes): (1) Diabetes (2) Cerebrovascular accident (CVA) with left hemiparesis (3) Febrile (4) Leukocytosis (5) Abdominal pain (6) Sepsis (7) Acute cholecystitis Problem List/Assessment/Plan ID Problem List: - Cerebrovascular accident with left hand paresis - Bed confined - Uncontrolled diabetes mellitus - Hypercholesterolemia - Hypertension - Paroxysmal atrial fibrillation - Cholelithiasis - Cholecystitis - Recent right MCA stroke with mid-cervical occlusion of right ICA - Necrotic infections of bilateral feet, status post multiple debridements - Stroke Assessment This is a 68 y.o. male with a past medical history of cerebrovascular accident with left hand paresis, uncontrolled diabetes mellitus, hypercholesterolemia, hypertension, paroxysmal atrial fibrillation on Eliquis, recent right MCA stroke with mid-cervical occlusion of the right internal carotid artery, and status post coronary artery bypass graft several years ago, who presents with right upper quadrant pain, obstructive jaundice, and failure to thrive. The patient has been experiencing intermittent right upper quadrant pain and obstructive jaundice. He previously underwent percutaneous transhepatic biliary drainage at [facility] several weeks ago (records pending). Currently, he exhibits poor appetite, significant weight loss, and signs of acute cholecystitis. Vital signs are notable for fever (Tmax 101.5F) and tachycardia. Physical examination reveals right upper quadrant tenderness with guarding, mildly distended abdomen, rash, and open, non-draining foot wounds status post multiple debridements. Laboratory studies show leukocytosis (WBC 11.7 K/L) and elevated creatinine (1.56 mg/dL). Imaging studies are consistent with acute cholecystitis and stercoral colitis. 04/01: whitecount is 10.4 , patients MRPC shows no intro or extra hepatic biliary ductal dilation , no MRI evidence of chololithiasis , gallbladder wall thickening suggest acute cholecystitis . abdominal ultrasound shows cholelithiasis 04/02: per operative note patient underwent a laparoscopic cholecystectomy procedure and was found fibrinous flegmon in the right upper quadrant which consisted of trezors coils momentum loops of bowel. the inflammation was exuberant and after dissecting the momentum from the fundus of the gallbladder became obious the patient had a rupture of the gallbladder which spilled a myriad of natalya stones which was then seaaled off by this momentum and contained in the biloma and a puss collection . cultures and sensitivities were obtained . the myriad little stones were aspirated and scooped up to the best of my ability and then the gallbladder was resected by circumferentially dissecting the cystic duct and cystic artery . no attempt was made to trace the cystic duct to the common duct due to the inflammation and ligament is like adhesions and concretions . area was irrigated . patient remains normal throughout the procedure but there were no complications however the choice of laparoscopic procedure was chosen due to patient having a poor overall health 2: patients is growing 2 gram negative rods from operative cultures , whitecount is 16 and has tachycardia to 107s 04/04: whitecount is 13/7 , operative cultures are growing pseudomonas and enterobacteria both having sensitivities to levofloxacin , passing flattis and tolerating clear liquid diet 04/05:whitecount is 13.7 04/06: whitecount is 13.7 and BP is soft with MAPS 2: Ct abdomen and pelvis shows surgical drain has been placed in right upper quadrant and there remains post surgical debris and small amount of free fluid in the gallbladder 04/08: appears to be clinically responding to antibiotic therapy , whitecount is 10.8 04/10: patient appears to be clinically responding to antibiotics and is improving 04/11: whitecount is 14 and chest xray shows intrathoracic process 04/12: GPC in blood cultures could be skin nikolai contaminant vs staph infection vs enterococcus infection , will need to allow to speciate 04/13: patient appears to be doing clinically well , gram positive cocci in 1/ blood cultures is likely coag negative staph suggestive of skin nikolai contaminate 04/14: growing staph epidermitis in blood likely skin nikolai contaminant , vancomycin troth is elevated at 29.5 04/15: creatine is rising , MRI shows scattered patchy restricted diffusion right frontal parietal temporal and occipital lobes consistent with multiple areas of acute to subacute infarcts , no significant edema or mass effect . small chronic cortical infarcts in the right parietal and occipital lobes , mild chronic microvascular white matter ischemic changes 04/16: repeat blood cultures remain no growth to date , whitecount is 15 04/17: patient is having minimal output through GLORIA drain , whitecount is down to 13 and appears to be new mentation baseline 04/18: whitecount is 13 , CT abdomen and pelvis shows regressing fluid collections with right sided drain cath stable and in position , none of the catheters extend to collections of air and fluid anterior to the left hepatic lobe which seems to be free and non occulted and the hiatus scan shows no signs of biliary leak 3: continues to output over 100ccs of drainage 3: drain output is less than 15ccs Plan: - defer to general surgery if another catheter needs to be placed for ongoing remaining fluid collections around the liver - recommend CT pelvis and abdomen to evaluate persistent leukocytosis - patient is unable to communicate abdominal pain symptoms and this would be helpful in determining if patient needs ongoing drain or antibiotics - defer management of embolic stroke to primary and neurology teams - unclear if patient is microaspirating and would not like to try oral antibiotics at this time - repeat blood cultures in 24 hours - follow up on speciation and sensitivities - agree with plan to acquire blood cultures - continuing Zosyn while inpatient , when ready for discharge recommend oral Flagyl 500 mg 3x a day and oral levofloxacin 750 mg 1x a day to complete an additional 14 day course - aspiration precautions - follow up with infectious disease clinic in 4 weeks - defer post op management to general surgery - follow up on gram negative rods species - if tachycardia and other signs of sepsis persists would consider getting blood cultures , broadening out gram negative coverage - keep blood sugars under 180 Isolation Precautions: Standard Plan discussed with: Other Dietary Evaluation Review Recommendations by RD: Dietary education by RD Comments: 1. Recommend timely diet advancement to Low Fat diet s/p cholecystectomy 2. May consider Ensure Clear supplements TID in the interim appropriate for current diet order to optimize nutrition (250 kcal, 8 gm pro, 0 gm fat/carton) 3. Consulted for TPN/EN: TPN is not clinically indicated at this time due to functional GI tract; should nutrition support be desired, would recommend tube feeding with peptide-based, hydrolyzed formula for improved tolerance - however, advise oral diet trial prior to initiating nutrition support measures Expected Outcomes/Goals: Diet advancement, improved nutritional status, post-op healing TRENT STRINGER MD Apr 23, 2024 20:49
--- NOTE | 2024-04-23 20:51 | DVHPN2 ---
Consult Progress Note Date Seen: Apr 22, 2024 Subjective Patient reports: Other (continues to have little drain output and tolerating diet , mentation has somewhat improved , denies any pain and following commands ) Objective vital signs Vital Sign Date Time Temp Pulse Resp B/P (MAP) Pulse Ox O2 Delivery O2 Flow Rate FiO2 04/23/24 08:53 98.1 101 18 130/78 (95) 96 98.1 04/23/24 08:00 Room Air* 0 21 Total Intake and Output 04/22/24 04/22/24 04/23/24 15:00 23:00 07:00 Intake Total 1241 ml 1340 ml 650 ml Output Total 781 ml 1900 ml Balance 1241 ml 559 ml -1250 ml medications Current Medications Medications Dose Ordered Sig/Aruna Route Start Time Stop Time Status Last Admin Dose Admin Ceftriaxone Sodium/Dextrose 50 ml @ 50 mls/hr DAILY@2100 IV 04/04/24 21:00 Cancel Metronidazole 100 ml @ 100 mls/hr Q8HR IV 04/04/24 06:00 Cancel Vancomycin HCl 0 ml @ 0 mls/hr UD IV 04/12/24 14:45 Cancel laboratory and microbiology Laboratory Tests 04/22/24 13:13 Test 04/22/24 13:13 Range/Units Serum Glucose 118 H 74-106 mg/dL Problem List/Assessment/Plan Problems(with codes): (1) Diabetes (2) Cerebrovascular accident (CVA) with left hemiparesis (3) Febrile (4) Leukocytosis (5) Abdominal pain (6) Sepsis Problem List/Assessment/Plan ID Problem List: - Cerebrovascular accident with left hand paresis - Bed confined - Uncontrolled diabetes mellitus - Hypercholesterolemia - Hypertension - Paroxysmal atrial fibrillation - Cholelithiasis - Cholecystitis - Recent right MCA stroke with mid-cervical occlusion of right ICA - Necrotic infections of bilateral feet, status post multiple debridements - Stroke Assessment This is a 68 y.o. male with a past medical history of cerebrovascular accident with left hand paresis, uncontrolled diabetes mellitus, hypercholesterolemia, hypertension, paroxysmal atrial fibrillation on Eliquis, recent right MCA stroke with mid-cervical occlusion of the right internal carotid artery, and status post coronary artery bypass graft several years ago, who presents with right upper quadrant pain, obstructive jaundice, and failure to thrive. The patient has been experiencing intermittent right upper quadrant pain and obstructive jaundice. He previously underwent percutaneous transhepatic biliary drainage at [facility] several weeks ago (records pending). Currently, he exhibits poor appetite, significant weight loss, and signs of acute cholecystitis. Vital signs are notable for fever (Tmax 101.5F) and tachycardia. Physical examination reveals right upper quadrant tenderness with guarding, mildly distended abdomen, rash, and open, non-draining foot wounds status post multiple debridements. Laboratory studies show leukocytosis (WBC 11.7 K/L) and elevated creatinine (1.56 mg/dL). Imaging studies are consistent with acute cholecystitis and stercoral colitis. 04/01: whitecount is 10.4 , patients MRPC shows no intro or extra hepatic biliary ductal dilation , no MRI evidence of chololithiasis , gallbladder wall thickening suggest acute cholecystitis . abdominal ultrasound shows cholelithiasis 04/02: per operative note patient underwent a laparoscopic cholecystectomy procedure and was found fibrinous flegmon in the right upper quadrant which consisted of trezors coils momentum loops of bowel. the inflammation was exuberant and after dissecting the momentum from the fundus of the gallbladder became obious the patient had a rupture of the gallbladder which spilled a myriad of natalya stones which was then seaaled off by this momentum and contained in the biloma and a puss collection . cultures and sensitivities were obtained . the myriad little stones were aspirated and scooped up to the best of my ability and then the gallbladder was resected by circumferentially dissecting the cystic duct and cystic artery . no attempt was made to trace the cystic duct to the common duct due to the inflammation and ligament is like adhesions and concretions . area was irrigated . patient remains normal throughout the procedure but there were no complications however the choice of laparoscopic procedure was chosen due to patient having a poor overall health 2: patients is growing 2 gram negative rods from operative cultures , whitecount is 16 and has tachycardia to 107s 2: whitecount is 13/7 , operative cultures are growing pseudomonas and enterobacteria both having sensitivities to levofloxacin , passing flattis and tolerating clear liquid diet 04/05:whitecount is 13.7 2: whitecount is 13.7 and BP is soft with MAPS 2: Ct abdomen and pelvis shows surgical drain has been placed in right upper quadrant and there remains post surgical debris and small amount of free fluid in the gallbladder 04/08: appears to be clinically responding to antibiotic therapy , whitecount is 10.8 04/10: patient appears to be clinically responding to antibiotics and is improving 04/11: whitecount is 14 and chest xray shows intrathoracic process 04/12: GPC in blood cultures could be skin nikolai contaminant vs staph infection vs enterococcus infection , will need to allow to speciate 04/13: patient appears to be doing clinically well , gram positive cocci in 1/ blood cultures is likely coag negative staph suggestive of skin nikolai contaminate 04/14: growing staph epidermitis in blood likely skin nikolai contaminant , vancomycin troth is elevated at 29.5 04/15: creatine is rising , MRI shows scattered patchy restricted diffusion right frontal parietal temporal and occipital lobes consistent with multiple areas of acute to subacute infarcts , no significant edema or mass effect . small chronic cortical infarcts in the right parietal and occipital lobes , mild chronic microvascular white matter ischemic changes 04/16: repeat blood cultures remain no growth to date , whitecount is 15 04/17: patient is having minimal output through GLORIA drain , whitecount is down to 13 and appears to be new mentation baseline 04/18: whitecount is 13 , CT abdomen and pelvis shows regressing fluid collections with right sided drain cath stable and in position , none of the catheters extend to collections of air and fluid anterior to the left hepatic lobe which seems to be free and non occulted and the hiatus scan shows no signs of biliary leak 3: continues to output over 100ccs of drainage 3: drain output is less than 15ccs 3: drainage has come down and mentation has improved Plan: - Start oral levofloxacin 750 mg daily for an additional 7 day course - follow up with general surgery for management of drain - Stop Zosyn - defer to general surgery if another catheter needs to be placed for ongoing remaining fluid collections around the liver - recommend CT pelvis and abdomen to evaluate persistent leukocytosis - patient is unable to communicate abdominal pain symptoms and this would be helpful in determining if patient needs ongoing drain or antibiotics - defer management of embolic stroke to primary and neurology teams - unclear if patient is microaspirating and would not like to try oral antibiotics at this time - repeat blood cultures in 24 hours - follow up on speciation and sensitivities - agree with plan to acquire blood cultures - aspiration precautions - follow up with infectious disease clinic in 4 weeks - defer post op management to general surgery - follow up on gram negative rods species - if tachycardia and other signs of sepsis persists would consider getting blood cultures , broadening out gram negative coverage - keep blood sugars under 180 Isolation Precautions: Standard Plan discussed with: Other Dietary Evaluation Review Recommendations by RD: Dietary education by RD Comments: 1. Recommend timely diet advancement to Low Fat diet s/p cholecystectomy 2. May consider Ensure Clear supplements TID in the interim appropriate for current diet order to optimize nutrition (250 kcal, 8 gm pro, 0 gm fat/carton) 3. Consulted for TPN/EN: TPN is not clinically indicated at this time due to functional GI tract; should nutrition support be desired, would recommend tube feeding with peptide-based, hydrolyzed formula for improved tolerance - however, advise oral diet trial prior to initiating nutrition support measures Expected Outcomes/Goals: Diet advancement, improved nutritional status, post-op healing TRENT STRINGER MD Apr 23, 2024 20:51
--- NOTE | 2024-04-23 21:43 | DVHPN2 ---
Consult Progress Note Date Seen: Apr 23, 2024 Subjective Patient reports: Feels better (mentation is about the same , mubles when asnwereing questions , 1-2ccs of drain output ) Objective vital signs Vital Sign Date Time Temp Pulse Resp B/P (MAP) Pulse Ox O2 Delivery O2 Flow Rate FiO2 04/23/24 08:53 98.1 101 18 130/78 (95) 96 98.1 04/23/24 08:00 Room Air* 0 21 Total Intake and Output 04/22/24 04/22/24 04/23/24 15:00 23:00 07:00 Intake Total 1241 ml 1340 ml 650 ml Output Total 781 ml 1900 ml Balance 1241 ml 559 ml -1250 ml medications Current Medications Medications Dose Ordered Sig/Aruna Route Start Time Stop Time Status Last Admin Dose Admin Ceftriaxone Sodium/Dextrose 50 ml @ 50 mls/hr DAILY@2100 IV 04/04/24 21:00 Cancel Metronidazole 100 ml @ 100 mls/hr Q8HR IV 04/04/24 06:00 Cancel Vancomycin HCl 0 ml @ 0 mls/hr UD IV 04/12/24 14:45 Cancel Physical Exam: General: NAD Neck: Supple. No masses. HEENT: PERRL. Normal lids and conjunctiva. Moist mucous membranes. Oropharynx without lesions, exudates, or excessive erythema. Normal appearance of the external aspects of the nose and ears. Heart: Regular rhythm, normal rate. No murmur. No lower extremity edema. Lungs: Diminished breath sounds at the bases bilaterally. No wheezes. No crackles. Abdomen: Soft. Non-tender. Non-distended. No masses or abdominal hernia. Msk: No digital cyanosis. Normal strength and tone in all 4 limbs. Skin: Warm and dry, no rashes. Neuro: Alert, more aware, following commands. No facial droop or slurred speech. Extra-ocular movements intact. Sensation intact to soft touch in all 4 limbs. Psych: Appropriate mood. Full affect. Oriented to person, place, time, and situation. laboratory and microbiology Laboratory Tests 04/22/24 13:13 Test 04/22/24 13:13 Range/Units Serum Glucose 118 H 74-106 mg/dL Problem List/Assessment/Plan Problems(with codes): (1) Diabetes (2) Cerebrovascular accident (CVA) with left hemiparesis (3) Febrile (4) Leukocytosis Problem List/Assessment/Plan ID Problem List: - Cerebrovascular accident with left hand paresis - Bed confined - Uncontrolled diabetes mellitus - Hypercholesterolemia - Hypertension - Paroxysmal atrial fibrillation - Cholelithiasis - Cholecystitis - Recent right MCA stroke with mid-cervical occlusion of right ICA - Necrotic infections of bilateral feet, status post multiple debridements - Stroke Assessment This is a 68 y.o. male with a past medical history of cerebrovascular accident with left hand paresis, uncontrolled diabetes mellitus, hypercholesterolemia, hypertension, paroxysmal atrial fibrillation on Eliquis, recent right MCA stroke with mid-cervical occlusion of the right internal carotid artery, and status post coronary artery bypass graft several years ago, who presents with right upper quadrant pain, obstructive jaundice, and failure to thrive. The patient has been experiencing intermittent right upper quadrant pain and obstructive jaundice. He previously underwent percutaneous transhepatic biliary drainage at [facility] several weeks ago (records pending). Currently, he exhibits poor appetite, significant weight loss, and signs of acute cholecystitis. Vital signs are notable for fever (Tmax 101.5F) and tachycardia. Physical examination reveals right upper quadrant tenderness with guarding, mildly distended abdomen, rash, and open, non-draining foot wounds status post multiple debridements. Laboratory studies show leukocytosis (WBC 11.7 K/L) and elevated creatinine (1.56 mg/dL). Imaging studies are consistent with acute cholecystitis and stercoral colitis. 04/01: whitecount is 10.4 , patients MRPC shows no intro or extra hepatic biliary ductal dilation , no MRI evidence of chololithiasis , gallbladder wall thickening suggest acute cholecystitis . abdominal ultrasound shows cholelithiasis 04/02: per operative note patient underwent a laparoscopic cholecystectomy procedure and was found fibrinous flegmon in the right upper quadrant which consisted of trezors coils momentum loops of bowel. the inflammation was exuberant and after dissecting the momentum from the fundus of the gallbladder became obious the patient had a rupture of the gallbladder which spilled a myriad of natalya stones which was then seaaled off by this momentum and contained in the biloma and a puss collection . cultures and sensitivities were obtained . the myriad little stones were aspirated and scooped up to the best of my ability and then the gallbladder was resected by circumferentially dissecting the cystic duct and cystic artery . no attempt was made to trace the cystic duct to the common duct due to the inflammation and ligament is like adhesions and concretions . area was irrigated . patient remains normal throughout the procedure but there were no complications however the choice of laparoscopic procedure was chosen due to patient having a poor overall health 2: patients is growing 2 gram negative rods from operative cultures , whitecount is 16 and has tachycardia to 107s 04/04: whitecount is 13/7 , operative cultures are growing pseudomonas and enterobacteria both having sensitivities to levofloxacin , passing flattis and tolerating clear liquid diet 04/05:whitecount is 13.7 04/06: whitecount is 13.7 and BP is soft with MAPS 2: Ct abdomen and pelvis shows surgical drain has been placed in right upper quadrant and there remains post surgical debris and small amount of free fluid in the gallbladder 04/08: appears to be clinically responding to antibiotic therapy , whitecount is 10.8 04/10: patient appears to be clinically responding to antibiotics and is improving 04/11: whitecount is 14 and chest xray shows intrathoracic process 04/12: GPC in blood cultures could be skin nikolai contaminant vs staph infection vs enterococcus infection , will need to allow to speciate 04/13: patient appears to be doing clinically well , gram positive cocci in 02/22 blood cultures is likely coag negative staph suggestive of skin nikolai contaminate 04/14: growing staph epidermitis in blood likely skin nikolai contaminant , vancomycin troth is elevated at 29.5 04/15: creatine is rising , MRI shows scattered patchy restricted diffusion right frontal parietal temporal and occipital lobes consistent with multiple areas of acute to subacute infarcts , no significant edema or mass effect . small chronic cortical infarcts in the right parietal and occipital lobes , mild chronic microvascular white matter ischemic changes 04/16: repeat blood cultures remain no growth to date , whitecount is 15 04/17: patient is having minimal output through GLORIA drain , whitecount is down to 13 and appears to be new mentation baseline 04/18: whitecount is 13 , CT abdomen and pelvis shows regressing fluid collections with right sided drain cath stable and in position , none of the catheters extend to collections of air and fluid anterior to the left hepatic lobe which seems to be free and non occulted and the hiatus scan shows no signs of biliary leak 3/2: continues to output over 100ccs of drainage 3: drain output is less than 15ccs 3/4: drainage has come down and mentation has improved 04/23: tolerating oral levofloxacin Plan: - Start oral levofloxacin 750 mg daily for an additional 7 day course - follow up with general surgery for management of drain - Stop Zosyn - defer to general surgery if another catheter needs to be placed for ongoing remaining fluid collections around the liver - recommend CT pelvis and abdomen to evaluate persistent leukocytosis - patient is unable to communicate abdominal pain symptoms and this would be helpful in determining if patient needs ongoing drain or antibiotics - defer management of embolic stroke to primary and neurology teams - unclear if patient is microaspirating and would not like to try oral antibiotics at this time - repeat blood cultures in 24 hours - follow up on speciation and sensitivities - agree with plan to acquire blood cultures - aspiration precautions - follow up with infectious disease clinic in 4 weeks - defer post op management to general surgery - follow up on gram negative rods species - if tachycardia and other signs of sepsis persists would consider getting blood cultures , broadening out gram negative coverage - keep blood sugars under 180 Isolation Precautions: Standard Plan discussed with: Other Dietary Evaluation Review Recommendations by RD: Dietary education by RD Comments: 1. Recommend timely diet advancement to Low Fat diet s/p cholecystectomy 2. May consider Ensure Clear supplements TID in the interim appropriate for current diet order to optimize nutrition (250 kcal, 8 gm pro, 0 gm fat/carton) 3. Consulted for TPN/EN: TPN is not clinically indicated at this time due to functional GI tract; should nutrition support be desired, would recommend tube feeding with peptide-based, hydrolyzed formula for improved tolerance - however, advise oral diet trial prior to initiating nutrition support measures Expected Outcomes/Goals: Diet advancement, improved nutritional status, post-op healing TRENT STRINGER MD Apr 23, 2024 21:43
== END 2024-04-23 13:11 | DRG 853 ==
LOC: TELE-CENTR 17:28 → OVERFLOW 04-01 14:53 → CENTRAL 04-01 15:02 → OVERFLOW 04-02 12:48 → TELE-CENTR 04-02 12:54 → ICU CENTRL 04-02 17:00 → TELE-EAST 04-05 15:50 → TELE-WESTW 04-11 12:34
PROVIDERS: ADMIT Specialist; ATTEND Specialist
PROC: 0F9 Hepatobiliary System and Pancreas, Drainage (ICD-10-PCS; 2024-04-02)
PROC: 0FT44ZZ Resection of Gallbladder, Percutaneous Endoscopic Approach (ICD-10-PCS; principal; 2024-04-02 12:16)
DX: A41.9 Sepsis, unspecified organism (principal); I63.9 Cerebral infarction, unspecified; N17.0 Acute kidney failure with tubular necrosis; R47.01 Aphasia; K80.63 Calculus of gallbladder and bile duct with acute cholecystitis with obstruction; E87.0 Hyperosmolality and hypernatremia; G81.94 Hemiplegia, unspecified affecting left nondominant side; L02.818 Cutaneous abscess of other sites; I65.21 Occlusion and stenosis of right carotid artery; E11.65 Type 2 diabetes mellitus with hyperglycemia; E78.00 Pure hypercholesterolemia, unspecified; I10 Essential (primary) hypertension; E87.6 Hypokalemia; I25.10 Atherosclerotic heart disease of native coronary artery without angina pectoris; R29.810 Facial weakness; N40.1 Benign prostatic hyperplasia with lower urinary tract symptoms; N39.498 Other specified urinary incontinence; I48.0 Paroxysmal atrial fibrillation; F32.9 Major depressive disorder, single episode, unspecified; B96.5 Pseudomonas (aeruginosa) (mallei) (pseudomallei) as the cause of diseases classified elsewhere; K82.8 Other specified diseases of gallbladder; R62.7 Adult failure to thrive; Z74.01 Bed confinement status; Z79.82 Long term (current) use of aspirin; Z79.2 Long term (current) use of antibiotics; Z79.899 Other long term (current) drug therapy; Z79.4 Long term (current) use of insulin; Z79.891 Long term (current) use of opiate analgesic; Z91.199 Patient's noncompliance with other medical treatment and regimen due to unspecified reason; Z79.01 Long term (current) use of anticoagulants; Z95.1 Presence of aortocoronary bypass graft; Z83.3 Family history of diabetes mellitus; I25.2 Old myocardial infarction; Z68.22 Body mass index [BMI] 22.0-22.9, adult
CPT/HCPCS: 36415; 70551; 71045; 74022; 74176; 74177; 74181; 76705; 76775; 78226; 80048; 80053; 80061; 80202; 82150; 82565; 82962; 83690; 83735; 84100; 84154; 85025; 85610; 85730; 86850; 86900; 86901; 87040; 87070; 87075; 87077; 87081; 87186; 93005; 93306; 93886; 97110; 97162; 97163; 97530; G0378; J0131; J1100; J1815; J2250; J2470; J2543; J3480; J3490

== ENCOUNTER 2024-09-27 09:12 | Inpatient (IN) | payer MEDICAID, MEDICARE, OTHER ==
[~2024-09-27] VITALS: Ht 172.7 cm; Wt 53.5 kg
[~2024-09-27 09:12] MED LIST: APIX5TAB PO; ATOR20TA50 PO; FAMO-12 PO; INSREGI SC
--- NOTE | 2024-09-27 09:26 | ED.PDOC ---
GI ASSESSMENT HPI Comments 69 year old male presents to the ED via EMS with a chief complaint of hematemesis. Per EMS, patient is from a [facility], patient is currently experiencing nausea, vomiting, hematemesis described as dark vomit with blood, as well as melena and blood in stool, with RUQ pain, described as a pressure sensation, rates pain 8/10. He is currently on Plavix and Eliquis. Upon EMS arrival, patient was hypotensive was BP 80 systolic, tachycardiac with 120 bpm. Was given 4 mg Zofran in route to ED. Patient has wounds to RT ankle, above RT ankle and sacral region. PMHx CHF, HTN, HL, DM, CVA with LT sided deficits. Patient is a poor historian. No other symptoms or modifying factors present at this time. Time Seen by MD: 09:15 Reviewed Notes: Medications, Allergies Allergies: Coded Allergies: NO KNOWN ALLERGIES (Unverified , 03/28/24) Home Meds Active Scripts Insulin Regular (Human) (Novolin R) 100 Unit/Ml Inj, 1-10 UNITS SC HSPRN PRN for 90 Days, #10 INJ Prov:ALLA STRINGER MD 04/21/24 Famotidine (Famotidine) 20 Mg Tab, 20 MG PO EOD for 30 Days, #30 TAB Prov:ALLA STRINGER MD 04/21/24 Atorvastatin Calcium (ATORVASTATIN CALCIUM) 20 Mg Tab, 40 MG PO HS for 90 Days, #90 TAB Hold if calf muscle pains Prov:ALLA STRINGER MD 04/21/24 Apixaban Base (ELIQUIS) 5 Mg Tab, 5 MG PO BID for 90 Days, #180 TAB Hold if internal bleeding Prov:ALLA STRINGER MD 04/21/24 Information Source: Patient, Emergency Med Personnel Mode of Arrival: EMS Timing: Hours Duration: Since onset Prehospital treatment: Other (zofran 4 mg) Quality: Sharp Vomitus: Bloody, Tarry Black Stool: Tarry, Blood Streaked Severity: Moderate Recent: None Recent Hx of: None Pain Location: RUQ Modifying Factors: Nothing Associated sign and symptoms: Nausea, Vomiting, Hematemesis, Melena, Abdominal Pain, Blood in Stool Past Medical History PAST MEDICAL HISTORY: CHF, CVA (LT sided deficts), High Lipids, HTN Surgical History: Denies all surgeries Family History Family History: Reviewed,noncontributory to illness, No family hx of Cancer, No family hx of DM, No family hx of Heart brandy, No family hx of HTN, No family hx ofKidney brandy, No family hx of Liver brandy, No family hx of Lung brandy, No family hx of Stroke Social History Smoker: Non-Smoker Alcohol: Denies ETOH Use Drugs: Denies Drug Use Lives In: Care Home Constitutional: denies: chills, diaphoresis, fatigue, fever, malaise, sweats, weakness, others EENTM: denies: blurred vision, double vision, ear bleeding, ear discharge, ear drainage, ear pain, ear ringing, eye pain, eye redness, hearing loss, mouth pain, mouth swelling, nasal discharge, nose bleeding, nose congestion, nose pain, photophobia, tearing, throat pain, throat swelling, voice changes, others Respiratory: denies: cough, hemoptysis, orthopnea, SOB at rest, shortness of breath, SOB with excertion, stridor, wheezing, others Cardiovascular: denies: chest pain, dizzy spells, diaphoresis, Dyspnea on exertion, edema, irregular heart beat, left arm pain, lightheadedness, palpitations, PND, syncope, others Gastrointestinal: reports: abdominal pain, blood streaked bowels, hematemesis, nausea, vomiting; denies: abdomen distended, constipated, diarrhea, dysphagia, difficulty swallowing, melena, poor appetite, poor fluid intake, rectal bleeding, rectal pain, others Genitourinary: denies: burning, dysuria, flank pain, frequency, hematuria, incontinence, penile discharge, penile sore, pain, testicle pain, testicle swelling, urgency, others Neurological: denies: dizziness, fainting, headache, left sided numbness, left sided weakness, numbness, paresthesia, pre-existing deficit, right sided numbness, right sided weakness, seizure, speech problems, tingling, tremors, weakness, others Musculoskeletal: denies: back pain, gout, joint pain, joint swelling, muscle pain, muscle stiffness, neck pain, others Integumetry: reports: wounds; denies: bruises, change in color, change in hair/nails, dryness, laceration, lesions, lumps, rash, others Allergic/Immunocompromised: denies: Difficulty Healing, Frequent Infections, Hives, Itching, others Hematologic/Lymphatic: denies: anemia, blood clots, easy bleeding, easy bruising, swollen glands, others Endocrine: denies: excessive hunger, excessive sweating, excessive thirst, excessive urination, flushing, intolerance to cold, intolerance to heat, unexplained weight gain, unexplained weight loss, others Psychiatric: denies: anxiety, bipolar disorder, depression, hopeless, panic disorder, schizophrenia, sleepless, suicidal, others Physical Exam General Appearance: Moderate Distress, Normal HEENT: Normal ENT Inspection, Pharynx Normal, TMs Normal Neck: Full Range of Motion, Non-Tender, Normal, Normal Inspection Respiratory: Chest Non-Tender, Lungs Clear, No Accessory Muscle Use, No Respiratory Distress, Normal Breath Sounds Cardiovascular: Irregular, No Edema, No JVD, No Murmur, No Gallop, Normal Peripheral Pulses, Tachycardia Breast Exam: Deferred Gastrointestinal: No Organomegaly, Non Tender, No Pulsatile Mass, Normal Bowel Sounds, Soft Genitalia: Deferred Pelvic: Deferred Rectal: Deferred Extremities: No calf tenderness, Normal capillary refill, Normal inspection, Normal range of motion, Non-tender, No pedal edema Musculoskeletal : Apperance: Normal Neurologic: Alert, truck mechanic II-XII nml as Tested, No Motor Deficits, Normal Affect, Normal Mood, No Sensory Deficits Cerebellar Function: NOT DONE Reflexes: NOT DONE Skin: Dry, Normal Color, Warm, Wounds (Bilateral feet back) Peripheral Pulses: 3+ Radial (R), 3+ Radial (L) Lymphatic: No Adenopathy EKG EKG : Pulse Rate (adult): 117 Cardiac Rhythm: Afib Was a procedure done? Was a procedure done?: No GI differential Dx Differential Diagnosis: Constipation, Diverticular disease, Esophagitis, Gastritis/PUD, Gastroenteritis X-Ray, Labs, Meds, VS Vital Signs Date Time Temp Pulse Resp B/P (MAP) Pulse Ox O2 Delivery O2 Flow Rate FiO2 09/27/24 13:06 96 Room Air* 0 21 09/27/24 12:44 108 18 99 Room Air* 0 21 09/27/24 12:00 108 18 112/67 (82) 96 09/27/24 10:00 97.7 114 18 107/64 (78) 96 97.7 09/27/24 09:30 117 09/27/24 09:27 117 09/27/24 09:20 97.7 137 16 129/82 98 97.7 Lab Test 09/27/24 09:55 Range/Units White Blood Count 18.6 H 4.4-10.8 10^3/uL Red Blood Count 4.08 L 4.5-5.90 10^6/uL Hemoglobin 12.2 L 13.5-17.5 g/dL Hematocrit 36.5 L 41.0-53.0 % Mean Corpuscular Volume 89.5 80.0-100.0 fL Mean Corpuscular Hemoglobin 30.0 28.0-32.0 pg Mean Corpuscular Hemoglobin Concent 33.5 32.0-36.0 g/dL Red Cell Distribution Width 13.8 11.8-14.3 % Platelet Count 426 140-450 10^3/uL Mean Platelet Volume 6.9 6.9-10.8 fL Neutrophils (%) (Auto) 89.6 H 37.0-80.0 % Lymphocytes (%) (Auto) 7.1 L 10.0-50.0 % Monocytes (%) (Auto) 2.9 0.0-12.0 % Eosinophils (%) (Auto) 0.1 0.0-7.0 % Basophils (%) (Auto) 0.3 0.0-2.0 % Neutrophils # (Auto) 16.7 H 1.6-8.6 10 ^3/uL Lymphocytes # (Auto) 1.3 0.4-5.4 10 ^3/uL Monocytes # (Auto) 0.5 0-1.3 10 ^3/uL Eosinophils # (Auto) 0 0-0.8 10 ^3/uL Basophils # (Auto) 0.1 0-0.2 10 ^3/uL Nucleated Red Blood Cells 0.0 % Prothrombin Time 11.8 9.3-11.8 sec Prothrombin Time INR 1.13 0.9-1.15 Activated Partial Thromboplast Time 29.8 24.5-34.5 SEC Sodium Level 145 136-145 mmol/L Potassium Level 3.2 L 3.5-5.1 mmol/L Chloride Level 102 98-107 mmol/L Carbon Dioxide Level 29 20-31 mmol/L Anion Gap 14 5-15 Blood Urea Nitrogen 22 9-23 mg/dL Creatinine 0.72 0.700-1.30 mg/dL Glomerular Filtration Rate Calc 100 >90 mL/min BUN/Creatinine Ratio 30.6 H 10.0-20.0 Serum Glucose 164 H 74-106 mg/dL Lactic Acid Level 1.3 0.4-2.0 mmol/L Calcium Level 9.7 8.7-10.4 mg/dL Total Bilirubin 0.4 0.2-1.0 mg/dL Aspartate Amino Transferase (AST) 19 13-40 U/L Alanine Aminotransferase (ALT) 19 7-40 U/L Alkaline Phosphatase 92 46-116 U/L Total Protein 7.1 5.7-8.2 g/dL Albumin 4.4 3.2-4.8 g/dL Current Medications Medications (Trade) Dose Ordered Sig/Aruna Route Start Time Stop Time Status Last Admin Clindamycin Phosphate 50 ml @ 50 mls/hr ONCE ONCE IV 09/27/24 09:30 09/27/24 10:29 DC 09/27/24 10:26 Sodium Chloride 1,000 ml @ 1,000 mls/hr Q1H ONCE IV 09/27/24 09:30 09/27/24 10:29 DC 09/27/24 10:26 Sodium Chloride 1,000 ml @ 150 mls/hr Q6H40M ONCE IV 09/27/24 09:30 09/27/24 13:58 DC 09/27/24 10:27 Cefepime HCl 50 ml @ 50 mls/hr ONCE ONCE IV 09/27/24 09:45 09/27/24 10:44 DC 09/27/24 10:26 Vancomycin HCl 250 ml @ 250 mls/hr ONCE ONCE IV 09/27/24 09:45 09/27/24 10:44 PR 09/27/24 10:26 [place] [id number] Ph: [phone] DIAGNOSTIC IMAGING Diagnostic Imaging Report : [id number] Signed PATIENT: ZACKERY PETTY ACCT: [id number] UNIT: [id number] : 1955 LOC: ER ROOM / BED: / AGE / SEX: 69 / M ADM STATUS: REG ER SERVICE 7 ORDERING PHYSICIAN: ANGÉLICA RITTER MD PROCEDURE(s): CXRP - CHEST PORTABLE REASON: sob ORDER NUMBER(s): [id number], ACCESSION NUMBER(s): [id number] CLINICAL INFORMATION: Shortness of breath. TECHNIQUE: Single AP portable chest radiograph was obtained. COMPARISON: XY CHEST XRAY 1 VIEW on DOS: 04/12/24, XY CHEST PORTABLE on DOS: 03/29/24 FINDINGS: Lungs: Clear. Cardiac: Heart size is within normal limits. Pulmonary vasculature: Unremarkable. Mediastinum/atilio: Unremarkable. Bones: No acute osseous abnormality identified. Other: No other significant findings. IMPRESSION: No evidence of acute disease in the chest. Patient alert pain Tachycardia. EKG reviewed does show atrial fibrillation. He is on blood thinner. Saturation pristine on room air. Has a wounds on his foot back. He does not ambulate. Sepsis protocol. Establish intravenous access. Was given fluids. Was given antibiotics. Continue to monitor. CT scan of the abdomen reviewed does show cholecystectomy with possible infection around that area. MRCP. WBC elevated. Could be from the wounds of the foot back. Failure to thrive. Time of 1ST Reevaluation: 09:45 Reevaluation 1ST: Unchanged Patient Education/Counseling: Diagnosis, Treatment, Prognosis Family Education/Counseling: No Family Present SEPSIS Sepsis Screen Physician Orders Electrocardigram (09/27/24 09:25) Urinalysis (09/27/24 09:28) Chest Portable (09/27/24 09:28) Accucheck (09/27/24 09:28) Blood Culture (09/27/24 09:28) Cefepime 1gm/ 50ml (Maxipime 1gm/50ml) (09/27/24 18:00) Notify Md If Map <65 Or Bp<90 (09/27/24 09:28) If Map<65 Start Vasopressor (09/27/24 09:28) Sepsis Reassesment After Fluid (09/27/24 10:28) Type And Screen (09/27/24 09:58) Ct Ab Pel Wo Con-No Oral Or Iv (09/27/24 12:28) Vital Signs Date Time Temp Pulse Resp B/P (MAP) Pulse Ox O2 Delivery O2 Flow Rate FiO2 09/27/24 13:06 96 Room Air* 0 21 09/27/24 12:44 108 18 99 Room Air* 0 21 09/27/24 12:00 108 18 112/67 (82) 96 09/27/24 10:00 97.7 114 18 107/64 (78) 96 97.7 09/27/24 09:30 117 09/27/24 09:27 117 09/27/24 09:20 97.7 137 16 129/82 98 97.7 Laboratory Tests Test 09/27/24 09:55 Lactic Acid Level 1.3 mmol/L (0.4-2.0) White Blood Count 18.6 10^3/uL (4.4-10.8) H Medications Medications Dose Ordered Sig/Aruna Route Start Time Stop Time Status Last Admin Dose Admin Cefepime HCl 50 ml @ 50 mls/hr ONCE ONCE IV 09/27/24 09:45 09/27/24 10:44 DC 09/27/24 10:26 Clindamycin Phosphate 50 ml @ 50 mls/hr ONCE ONCE IV 09/27/24 09:30 09/27/24 10:29 DC 09/27/24 10:26 Sodium Chloride 1,000 ml @ 150 mls/hr Q6H40M ONCE IV 09/27/24 09:30 09/27/24 13:58 DC 09/27/24 10:27 Sodium Chloride 1,000 ml @ 1,000 mls/hr Q1H ONCE IV 09/27/24 09:30 09/27/24 10:29 DC 09/27/24 10:26 Vancomycin HCl 250 ml @ 250 mls/hr ONCE ONCE IV 09/27/24 09:45 09/27/24 10:44 DC 09/27/24 10:26 Departure 1 Departure Time of Disposition: 09:33 Impression: Primary Impression: Sepsis, unspecified organism Qualified Codes: A41.9 - Sepsis, unspecified organism Additional Impressions: Diabetic ulcer of ankle Uncontrolled diabetes mellitus Qualified Codes: E13.65 - Other specified diabetes mellitus with hyperglycemia Disposition: ADMITTED INPATIENT Admit to: Med Surg Condition: Guarded Critical Care Note Critical Care Time?: Yes (90 min-critical care time only) Stability Stability form required: No Heart Score Heart Score: Heart Score Response (Comments) Value History Slightly Suspicious 0 EKG Normal 0 Age >65 2 Risk Factors >3 or Hx ASHD 2 Troponin Normal limit 0 Total 4 I personally scribed for ANGÉLICA RITTER MD ([email or web address]) on 09/27/24 at 09:26. Electronically submitted by Gissel Banuelos ([email or web address]). I personally scribed for ANGÉLICA RITTER MD ([email or web address]) on 09/27/24 at 11:05. Electronically submitted by Sandra Jeter ([email or web address]). ANGÉLICA RITTER MD Sep 27, 2024 09:26
[2024-09-27] MEDS ORDERED: VANCOMYCIN 1GM/200ML PM 200 ML IV ONE (09:30)
[2024-09-27] MEDS: CEFEPIME 1GM/ 50ML 50 ML IV ONE (10:26)
[2024-09-27] MEDS: VANCOMYCIN 1GM/250ML KIT 250 ML IV ONE (10:26)
[2024-09-27] MEDS: CLINDAMYCIN 300MG IV 50 ML IV ONE (10:26)
[2024-09-27] MEDS: SODIUM CHLORIDE 0.9% 1,000 ML IV ONE ×2 (10:26→10:27)
[2024-09-27 10:33] LABS: Hematocrit 36.5 % (41.0-53.0); Hemoglobin 12.2 g/dL (13.5-17.5); Mean Corpuscular Hemoglobin 30.0 pg (28.0-32.0); Mean Corpuscular Volume 89.5 fL (80.0-100.0); Nucleated Red Blood Cells % 0.0 %
[2024-09-27 10:39] LABS: Alanine Aminotransferase 19 U/L (7-40); Albumin 4.4 g/dL (3.2-4.8); Alkaline Phosphatase 92 U/L (46-116); Anion Gap 14 (5-15); BUN/Creatinine Ratio 30.6 (10.0-20.0); Bilirubin, Total 0.4 mg/dL (0.2-1.0); Blood Urea Nitrogen 22 mg/dL (9-23); Calcium 9.7 mg/dL (8.7-10.4); Carbon Dioxide 29 mmol/L (20-31); Chloride 102 mmol/L (98-107); Sodium 145 mmol/L (136-145); Total Protein 7.1 g/dL (5.7-8.2)
[2024-09-27 10:52] LABS: Glucose 164 mg/dL (74-106); Potassium 3.2 mmol/L (3.5-5.1)
--- NOTE | 2024-09-27 10:57 | DVH ---
CLINICAL INFORMATION: Shortness of breath. TECHNIQUE: Single AP portable chest radiograph was obtained. COMPARISON: XY CHEST XRAY 1 VIEW on DOS: 04/12/24, XY CHEST PORTABLE on DOS: 03/29/24 FINDINGS: Lungs: Clear. Cardiac: Heart size is within normal limits. Pulmonary vasculature: Unremarkable. Mediastinum/atilio: Unremarkable. Bones: No acute osseous abnormality identified. Other: No other significant findings. IMPRESSION: No evidence of acute disease in the chest.
[2024-09-27 11:13] LABS: INR 1.13 (0.9-1.15); Partial Thromboplastin Time 29.8 SEC (24.5-34.5); Prothrombin Time 11.8 sec (9.3-11.8)
[2024-09-27 12:44] VITALS: PULSE 108; RESP 18; O2SAT 99
--- NOTE | 2024-09-27 13:26 | DVH ---
CT CT AB PEL WO CON-NO ORAL OR IV INDICATION: colitis EXAM DATE: 09/27/2024 12:40 PM COMPARISON: CT CT AB PEL WO CON-NO ORAL OR IV on DOS: 04/18/24, CT CT ABD PELVIS W CON-ORAL IV on DO S: 04/07/24, US ABDOMEN LIMITED on DOS: 03/31/24 RADIATION DOSE: CTDIvol: 6.29 mGy, DLP: 317.21 mGy*cm PROCEDURE: Helical CT images were obtained of the abdomen and pelvis without IV contrast Sagittal and coronal reconstructions are provided. ORAL CONTRAST: None. ADDITIONAL IMAGES / REFORMATS: None All C T scans at this medical facility are performed using dose modulation techniques as appropriate to a p erformed exam including the following: Automated exposure control was utilized; adjustment of the MA and/or KV according to patient size; and use of iterative reconstruction technique. FINDINGS: LUNG BASE: Normal. LIVER: Normal. GALLBLADDER AND BILIARY TREE: Cholecystectomy clips are noted. Pneumobilia in the intra / extrahepati c bile ducts and common bowel duct could be seen with cholangitis. PANCREAS: Normal. SPLEEN: Normal. BOWEL: Prominent rectal wall thickening could be seen with proctitis. Partially visualized appendix a ppears normal. ADRENALS: Normal. KIDNEYS AND URETER: Normal. BLADDER: Normal. REPRODUCTIVE ORGANS: Normal. LYMPH NODES:No lymphadenopathy. PERITONEUM: No ascites or free air. No other fluid collection. VESSELS: Scattered atherosclerotic calcifications are noted. RETROPERITONEUM: Normal. ABDOMINAL WALL: Normal. BONES: Scattered osseous degenerative changes are noted. IMPRESSION: Cholecystectomy clips are noted. Pneumobilia in the intra / extrahepatic bile ducts and common bowel duct could be seen with cholangitis. Prominent rectal wall thickening could be seen with proctitis.
[2024-09-27] MEDS: SODIUM CHLORIDE 0.9% 1,000 ML IV SCH (14:13)
[2024-09-27] MEDS: PANTOPRAZOLE 40 MG/10 ML VIAL INJ IV ONE (14:14)
[2024-09-27] MEDS: ONDANSETRON HCL 4 MG/2 ML VIAL IV PRN (14:19)
[2024-09-27] MEDS: POTASSIUM EFFERVESENT TAB 25 MEQ PO ONE (14:19)
[2024-09-27] MEDS: ACETAMINOPHEN 325 MG TAB PO PRN (14:19)
[2024-09-27] MEDS: PIPERACILLIN-TAZOB 3.375GM 100 ML IV ONE (14:19)
--- NOTE | 2024-09-27 14:28 | DVHHP2 ---
History of Present Illness Reason for Visit: Sepsis History of Present Illness This is a 69-year-old bed-bound and contracted male with history of hypertension, hyperlipidemia, CVA with left-sided weakness and contraction, and CHF who presents to ED with chief complaint of abdominal pain associated with hematemesis, nausea, vomiting and melena in stool. He currently resides in a boarding care, ex- at bedside who has power of commonwealth attorney is answering all medical questions. The patient is currently on Plavix and Eliquis. In the ER, the patient was found to be hypotensive with SBP 80 with a heart rate of 120 beats per minute. The patient was given 4 mg IV Zofran EN route to ED. the patient currently has stage 2-3 sacral wound along with right ankle wound. The patient and ex- is wanting to be further evaluated and treated due to chief complaint. The patient will be admitted under hospitalist care to the telemetry unit for continuous monitoring. The patient denies fever, chills, headache, dizziness, palpitation, breath, chest pain, constipation and other associated symptoms. 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 Past Surgical History: None Family History: None Smoke: No ALCOHOL: none Drugs: None Lives: Other ([facility]) Domestic Violence: Neg Review of Systems Gastrointestinal: Nausea, Vomiting, Abdominal Pain, Diarrhea, Melena, Other (Hematemesis) Skin: Other (Stage 2-3 sacral wound and right ankle) Allergies: Coded Allergies: NO KNOWN ALLERGIES (Unverified , 03/28/24) Medications Current Medications Medications Dose Ordered Sig/Aruna Route Start Time Stop Time Status Last Admin Dose Admin Cefepime HCl 50 ml @ 12.5 mls/hr Q8H IV 09/27/24 18:00 Sodium Chloride 1,000 ml @ 100 mls/hr Q10H IV 09/27/24 14:00 Ondansetron HCl 4 mg Q4HP PRN IV 09/27/24 14:00 Acetaminophen 650 mg Q6HP PRN PO 09/27/24 14:00 Pantoprazole Sodium 40 mg DAILY IV 09/28/24 10:00 Exam Vital Signs Vital Signs Date Time Temp Pulse Resp B/P (MAP) Pulse Ox O2 Delivery O2 Flow Rate FiO2 09/27/24 13:06 96 Room Air* 0 21 09/27/24 12:44 108 18 09/27/24 12:00 112/67 (82) 09/27/24 10:00 97.7 97.7 General Appearance: Alert, Oriented X3, Cooperative, No acute distress HEENT: Atraumatic, PERRLA, Mucous membr. moist/pink Respiratory: Clear to auscultation Cardiovascular: Normal S1, Normal S2, No murmurs Abdominal: Soft, No hepatospenomegaly, No masses, Other (Hypoactive bowel sounds) Extremities: Other (Contracted to up 70) Neuro: Normal speech Psych/Mental Status: Mental status NL Labs/Xrays Labs Test 09/27/24 09:55 Range/Units White Blood Count 18.6 H 4.4-10.8 10^3/uL Red Blood Count 4.08 L 4.5-5.90 10^6/uL Hemoglobin 12.2 L 13.5-17.5 g/dL Hematocrit 36.5 L 41.0-53.0 % Mean Corpuscular Volume 89.5 80.0-100.0 fL Mean Corpuscular Hemoglobin 30.0 28.0-32.0 pg Mean Corpuscular Hemoglobin Concent 33.5 32.0-36.0 g/dL Red Cell Distribution Width 13.8 11.8-14.3 % Platelet Count 426 140-450 10^3/uL Mean Platelet Volume 6.9 6.9-10.8 fL Neutrophils (%) (Auto) 89.6 H 37.0-80.0 % Lymphocytes (%) (Auto) 7.1 L 10.0-50.0 % Monocytes (%) (Auto) 2.9 0.0-12.0 % Eosinophils (%) (Auto) 0.1 0.0-7.0 % Basophils (%) (Auto) 0.3 0.0-2.0 % Neutrophils # (Auto) 16.7 H 1.6-8.6 10 ^3/uL Lymphocytes # (Auto) 1.3 0.4-5.4 10 ^3/uL Monocytes # (Auto) 0.5 0-1.3 10 ^3/uL Eosinophils # (Auto) 0 0-0.8 10 ^3/uL Basophils # (Auto) 0.1 0-0.2 10 ^3/uL Nucleated Red Blood Cells 0.0 % Prothrombin Time 11.8 9.3-11.8 sec Prothrombin Time INR 1.13 0.9-1.15 Activated Partial Thromboplast Time 29.8 24.5-34.5 SEC Sodium Level 145 136-145 mmol/L Potassium Level 3.2 L 3.5-5.1 mmol/L Chloride Level 102 98-107 mmol/L Carbon Dioxide Level 29 20-31 mmol/L Anion Gap 14 5-15 Blood Urea Nitrogen 22 9-23 mg/dL Creatinine 0.72 0.700-1.30 mg/dL Glomerular Filtration Rate Calc 100 >90 mL/min BUN/Creatinine Ratio 30.6 H 10.0-20.0 Serum Glucose 164 H 74-106 mg/dL Lactic Acid Level 1.3 0.4-2.0 mmol/L Calcium Level 9.7 8.7-10.4 mg/dL Total Bilirubin 0.4 0.2-1.0 mg/dL Aspartate Amino Transferase (AST) 19 13-40 U/L Alanine Aminotransferase (ALT) 19 7-40 U/L Alkaline Phosphatase 92 46-116 U/L Total Protein 7.1 5.7-8.2 g/dL Albumin 4.4 3.2-4.8 g/dL ORDERING PHYSICIAN: ANGÉLICA RITTER MD PROCEDURE(s): ABPL - CT AB PEL WO CON-NO ORAL OR IV REASON: colitis ORDER NUMBER(s): [id number], ACCESSION NUMBER(s): [id number] CT CT AB PEL WO CON-NO ORAL OR IV INDICATION: colitis EXAM DATE: 09/27/2024 12:40 PM COMPARISON: CT CT AB PEL WO CON-NO ORAL OR IV on DOS: 04/18/24, CT CT ABD PELVIS W CON-ORAL IV on DOS: 04/07/24, US ABDOMEN LIMITED on DOS: 03/31/24 RADIATION DOSE: CTDIvol: 6.29 mGy, DLP: 317.21 mGy*cm PROCEDURE: Helical CT images were obtained of the abdomen and pelvis without IV contrast Sagittal and coronal reconstructions are provided. ORAL CONTRAST: None. ADDITIONAL IMAGES / REFORMATS: None All CT scans at this medical facility are performed using dose modulation techniques as appropriate to a performed exam including the following: Automated exposure control was utilized; adjustment of the MA and/or KV according to patient size; and use of iterative reconstruction technique. FINDINGS: LUNG BASE: Normal. LIVER: Normal. GALLBLADDER AND BILIARY TREE: Cholecystectomy clips are noted. Pneumobilia in the intra / extrahepatic bile ducts and common bowel duct could be seen with cholangitis. PANCREAS: Normal. SPLEEN: Normal. BOWEL: Prominent rectal wall thickening could be seen with proctitis. Partially visualized appendix appears normal. ADRENALS: Normal. KIDNEYS AND URETER: Normal. BLADDER: Normal. REPRODUCTIVE ORGANS: Normal. LYMPH NODES:No lymphadenopathy. PERITONEUM: No ascites or free air. No other fluid collection. VESSELS: Scattered atherosclerotic calcifications are noted. RETROPERITONEUM: Normal. ABDOMINAL WALL: Normal. BONES: Scattered osseous degenerative changes are noted. IMPRESSION: Cholecystectomy clips are noted. Pneumobilia in the intra / extrahepatic bile ducts and common bowel duct could be seen with cholangitis. Prominent rectal wall thickening could be seen with proctitis. ATED BY: CARLOS MORALES MD DICTATED DATE/TIME: 09/27/24 1324 SIGNED BY: CARLOS MORALES MD SIGNED DATE/TIME: 09/27/24 1324 CC: ORDERING PHYSICIAN: ANGÉLICA RITTER MD PROCEDURE(s): CXRP - CHEST PORTABLE REASON: sob ORDER NUMBER(s): [id number], ACCESSION NUMBER(s): [id number] CLINICAL INFORMATION: Shortness of breath. TECHNIQUE: Single AP portable chest radiograph was obtained. COMPARISON: XY CHEST XRAY 1 VIEW on DOS: 04/12/24, XY CHEST PORTABLE on DOS: 03/29/24 FINDINGS: Lungs: Clear. Cardiac: Heart size is within normal limits. Pulmonary vasculature: Unremarkable. Mediastinum/atilio: Unremarkable. Bones: No acute osseous abnormality identified. Other: No other significant findings. IMPRESSION: No evidence of acute disease in the chest. ATED BY: JEFF MAI DO DICTATED DATE/TIME: 09/27/24 1055 SIGNED BY: JEFF MAI DO SIGNED DATE/TIME: 09/27/24 1055 CC: SEPSIS Sepsis Screen Date sepsis recognized/suspect: Sep 27, 2024 Time Sepsis recognized/suspect: 1000 Recent Procedure: No On Antibiotic Therapy: Yes Respiratory Rate >20: Yes Heart Rate >90: Yes Temp<36 C (96.8 F) or >38.3 C: No SBP <90 or MAP <65 mmHG: No New Acute Mental Status Change: Yes Is the patient on CPAP, BIPAP,: No Physician Orders Electrocardigram (09/27/24 09:25) Urinalysis (09/27/24:28) Chest Portable (09/27/24:) Accucheck (09/27/24:28) Blood Culture (09/27/24:28) Cefepime 1gm/ 50ml (Maxipime 1gm/50ml) (09/27/24 18:00) Notify Md If Map <65 Or Bp<90 (09/27/24:) If Map<65 Start Vasopressor (09/27/24:) Sepsis Reassesment After Fluid (09/27/24 10:28) Type And Screen (09/27/24 09:58) Ct Ab Pel Wo Con-No Oral Or Iv (09/27/24 12:28) * Wound Consult (09/27/24 13:48) Wound Culture W/ Gs (09/27/24 13:48) Sodium Chloride 0.9% (09/27/24 14:00) Ondansetron Hcl (Zofran) (09/27/24 14:00) Complete Blood Count (09/28/24 04:00) Comprehensive Metabolic Panel (09/28/24 04:00) Condition: Fair (09/27/24 13:48) Acetaminophen Tablet (Tylenol Tablet) (09/27/24 14:00) Clear Liq Diet (09/27/24 Dinner) Maintain Bed Rest (09/27/24 13:48) Sequential Compression Device (09/27/24 ) Stool Bacterial Culture (09/27/24 13:48) Stool Occult Blood (09/27/24 13:48) Clostridium Difficile Toxin (09/27/24 13:48) Pantoprazole (Protonix) (09/28/24 10:00) * Gi Dvh Dietary Aide (09/27/24 13:55) Mrcp Mri (09/27/24 14:01) Piperacillin-Tazob 3.375gm (Zosyn 3.375g (09/27/24 18:00) Piperacillin-Tazob 3.375gm (Zosyn 3.375g (09/27/24 14:15) Metronidazole 500mg/100ml (Flagyl 500mg/ (09/27/24 22:00) Metronidazole 500mg/100ml (Flagyl 500mg/ (09/27/24 14:15) Gallbladder (09/27/24 14:04) Admit (09/27/24 14:05) Magnesium (09/27/24 14:06) Potassium Effervesent Tab (Klor-Con/Ef) (09/27/24 14:15) Vital Signs Date Time Temp Pulse Resp B/P (MAP) Pulse Ox O2 Delivery O2 Flow Rate FiO2 09/27/24 13:06 96 Room Air* 0 21 09/27/24 12:44 108 18 99 Room Air* 0 21 09/27/24 12:00 108 18 112/67 (82) 96 09/27/24 10:00 97.7 114 18 107/64 (78) 96 97.7 09/27/24 09:30 117 09/27/24 09:27 117 09/27/24 09:20 97.7 137 16 129/82 98 97.7 Laboratory Tests Test 09/27/24 09:55 Lactic Acid Level 1.3 mmol/L (0.4-2.0) White Blood Count 18.6 10^3/uL (4.4-10.8) H Medications Medications Dose Ordered Sig/Aruna Route Start Time Stop Time Status Last Admin Dose Admin Cefepime HCl 50 ml @ 50 mls/hr ONCE ONCE IV 09/27/24 09:45 09/27/24 10:44 DC 09/27/24 10:26 50 MLS/HR Clindamycin Phosphate 50 ml @ 50 mls/hr ONCE ONCE IV 09/27/24 09:30 09/27/24 10:29 DC 09/27/24 10:26 50 MLS/HR Sodium Chloride 1,000 ml @ 150 mls/hr Q6H40M ONCE IV 09/27/24 09:30 09/27/24 13:58 DC 09/27/24 10:27 150 MLS/HR Sodium Chloride 1,000 ml @ 1,000 mls/hr Q1H ONCE IV 09/27/24 09:30 8/9/25 10:29 DC 09/27/24 10:26 1,000 MLS/HR Vancomycin HCl 250 ml @ 250 mls/hr ONCE ONCE IV 09/27/24 09:45 09/27/24 10:44 DC 09/27/24 10:26 250 MLS/HR Assessment/Plan Assessment/Plan Sepsis--patient admitted via EMS with complaint of 09/28 abdominal pain associated with hematemesis, nausea, vomiting, melena in stool that progressed but worse today Bed-bound with upper and lower extremity contraction status post CVA On Plavix and Eliquis [facility] at bedside who has power of commonwealth attorney In ER patient SBP 80 and tachycardic at 120 Admit to telemetry unit Reviewed CBC shows leukocytosis Reviewed hemoglobin 12.2 Lactic acid is normal Reviewed Bmp potassium 3.2 Coags are normal Reviewed chest x-ray which is normal Blood culture pending IV antiemetics as needed IV hydration IV antibiotic given in the ER Start IV antibiotic Zosyn and Flagyl ? C diff In and out of hospital for nine months Patient with diarrhea C diff pending Ova and parasite pending Stool bacterial culture pending Stage 2-3 sacral wound and right ankle-possible source of infection Wound culture pending Consult content production specialist for evaluation and recommendation Upper and lower GI bleed Guaiac for stool Type and screen Transfuse packed red blood cell if hemoglobin less than 7.0 Hold anticoagulants Consult GI specialist for evaluation and recommendation IV Protonix now and daily Pneumobilia ? Cholangitis Patient with history of cholecystectomy MRCP pending Consult GI specialist for evaluation and recommendation Consider surgical consult if needed Hypokalemia 3.2 Magnesium level pending Order 25 mEq p.o. x1 now Hypertension Monitor BP Hyperlipidemia Continue atorvastatin Social consult for help arrangement back to [facility] [place] upon discharge Reconcile home medication DVT prophylaxis-SCD PUD prophylaxis Labs in a.m. Discussed plan of care with the patient and ex- in which all questions concerns have been addressed. 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 Procedure Category Date Status Time * Wound Consult CONS 09/27/24 Transmitted 13:48 Wound Culture W/ Gs ISA 09/27/24 Logged 13:48 Sodium Chloride 0.9% PHA 09/27/24 In Process 14:00 Ondansetron Hcl PHA 09/27/24 In Process (Zofran) 14:00 Complete Blood Count LAB 09/28/24 Verified 04:00 Comprehensive LAB 09/28/24 Verified Metabolic Panel 04:00 Condition: Fair JENNIFER 09/27/24 In Process 13:48 Acetaminophen Tablet PHA 09/27/24 In Process (Tylenol Tablet) 14:00 Clear Liq Diet DIET 09/27/24 Transmitted Dinner Maintain Bed Rest JENNIFER 09/27/24 In Process 13:48 Sequential JENNIFER 09/27/24 In Process Compression Device Stool Bacterial ISA 09/27/24 Logged Culture 13:48 Stool Occult Blood LAB 09/27/24 Logged 13:48 Clostridium Difficile ISA 09/27/24 Logged Toxin 13:48 Pantoprazole PHA 09/28/24 In Process (Protonix) 10:00 * Gi Dvh Dietary Aide CONS 09/27/24 Transmitted 13:55 Mrcp Mri MRI 09/27/24 Logged 14:01 Piperacillin-Tazob PHA 09/27/24 Logged 3.375gm (Zosyn 3.375g 18:00 Piperacillin-Tazob PHA 09/27/24 Logged 3.375gm (Zosyn 3.375g 14:15 Metronidazole PHA 09/27/24 Logged 500mg/100ml (Flagyl 22:00 Metronidazole PHA 09/27/24 Logged 500mg/100ml (Flagyl 14:15 Gallbladder US 09/27/24 Logged 14:04 Admit ADMIT 09/27/24 Transmitted 14:05 Magnesium LAB 09/27/24 Verified 14:06 Potassium Effervesent PHA 09/27/24 Verified Tab (Klor-Con/Ef) 14:15 Date of Service: Sep 27, 2024 Billing Provider: ANGELINE MARTINP Common Visit Codes: [id number] INP/OBS CARE (HIGH) ANGELINE MARTIN TURNSTILE ATTENDANT Sep 27, 2024 14:28
--- NOTE | 2024-09-27 14:58 | DVH ---
Procedure: US ABDOMEN LIMITED Study Date and Requested Time: 09/27/2024 02:14 PM History: pneumobilia / cholangitis Comparison: US KIDNEY on DOS: 04/14/24, CT CT ABD PELVIS W CON-ORAL IV on DOS: 04/07/24, US ABDOMEN L IMITED on DOS: 03/31/24 Technique: Multiple high resolution diamond-scale images obtained of the right upper quadrant of the abd omen with color Doppler for evaluation of blood flow and vascularity as indicated. Findings: Limited evaluation of the right upper abdominal structures due to patient's inability to tolerate monse dy. Limited evaluation of the liver with the left lobe obscured by bowel gas. The liver measures about 14 cm with suggested pneumobilia within the right lobe. The portal flow was not evaluated due to limite d study. Common bile duct is not well-visualized. Status post cholecystectomy Pancreas is obscured by bowel gas Right kidney is not visualized. Impression: Study is significantly limited as detailed above with suggested pneumobilia within the visualized rig ht hepatic lobe
[2024-09-27] MEDS ORDERED: CEFEPIME 1GM/ 50ML 50 ML IV SCH (18:00)
[2024-09-27] MEDS: PIPERACILLIN-TAZOB 3.375GM 100 ML IV SCH (22:23)
[2024-09-27] MEDS: ATORVASTATIN 20 MG TAB PO SCH (22:25)
[2024-09-28 02:52] LABS: Hematocrit 32.3 % (41.0-53.0); Hemoglobin 10.9 g/dL (13.5-17.5); Mean Corpuscular Hemoglobin 31.2 pg (28.0-32.0); Mean Corpuscular Volume 92.5 fL (80.0-100.0); Nucleated Red Blood Cells % 0.1 %
[2024-09-28 03:06] LABS: Alanine Aminotransferase 13 U/L (7-40); Albumin 4.0 g/dL (3.2-4.8); Alkaline Phosphatase 83 U/L (46-116); Anion Gap 16 (5-15); BUN/Creatinine Ratio 31.1 (10.0-20.0); Blood Urea Nitrogen 23 mg/dL (9-23); Calcium 8.9 mg/dL (8.7-10.4); Carbon Dioxide 25 mmol/L (20-31); Chloride 106 mmol/L (98-107); Total Protein 6.4 g/dL (5.7-8.2)
[2024-09-28 03:07] LABS: Bilirubin, Total 0.4 mg/dL (0.2-1.0); Glucose 128 mg/dL (74-106); Potassium 3.2 mmol/L (3.5-5.1); Sodium 147 mmol/L (136-145)
[2024-09-28 05:15] VITALS: BP 127/72; PULSE 100; RESP 13; O2SAT 94
--- NOTE | 2024-09-28 07:14 | ECG ---
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
[2024-09-28 09:00] VITALS: BP 118/68; PULSE 90; RESP 14; TEMP 98; O2SAT 98
[2024-09-28] MEDS: PANTOPRAZOLE 40 MG/10 ML VIAL INJ IV SCH (09:07)
[2024-09-28] MEDS: D5W/SOD CHL 0.45%/KCL 20MEQ 1,000 ML IV SCH (12:15)
[2024-09-28] MEDS ORDERED: HYDROcodone-ACET 5/325MG TAB PO PRN (12:30)
[2024-09-28] MEDS ORDERED: ACETAMINOPHEN 500 MG TAB or CAP PO PRN (12:30)
[2024-09-28] MEDS ORDERED: MORPHINE SULFATE INJ 2 MG/ml SYRG IV PRN (12:30)
--- NOTE | 2024-09-28 12:34 | DVHPN2 ---
Subjective Patient reporting nausea Reviewed: Care Plan, H&P, Labs, Medications Changes from previous H/P or p: No Changes General: Per HPI Gastrointestinal: Nausea, Vomiting, Abdominal Pain, Diarrhea, Melena, Other (Hematemesis) Skin: Other (Stage 2-3 sacral wound and right ankle) Objective Vitals Vital Signs Date Time Temp Pulse Resp B/P (MAP) Pulse Ox O2 Delivery O2 Flow Rate FiO2 09/28/24 05:15 100 13 127/72 (90) 94 09/27/24 23:20 97.8 97.8 09/27/24 13:06 Room Air* 0 21 Intake/Output Intake and Output 09/28/24 07:00 Intake Total 1750 ml Output Total 1300 ml Balance 450 ml Intake IV Total 1750 ml Output Urine Total 200 ml Stool Total 1100 ml General Appearance: Alert, Oriented X3, Cooperative, mild distress HEENT: Atraumatic, PERRLA Lungs: Clear to auscultation, Normal air movement Cardiovascular: Normal S1, Normal S2 Abdomen: Normal bowel sounds, Soft, No tenderness Genitourinary: No Apparent Abnormalities Musculoskeletal: Normal sensory function, Normal motor function Skin: Dry, Intact Psych/Mental Status: Mental status NL, Mood NL Medications Current Medications Medications Dose Ordered Sig/Aruna Route Start Time Stop Time Status Last Admin Dose Admin Sodium Chloride 1,000 ml @ 100 mls/hr Q10H IV 09/27/24 14:00 09/28/24 00:00 100 MLS/HR Ondansetron HCl 4 mg Q4HP PRN IV 09/27/24 14:00 09/28/24 09:07 4 MG Acetaminophen 650 mg Q6HP PRN PO 09/27/24 14:00 09/27/24 14:19 650 MG Pantoprazole Sodium 40 mg DAILY IV 09/28/24 10:00 09/28/24 09:07 40 MG Piperacillin Sod/ Tazobactam Sod 100 ml @ 25 mls/hr Q8HR IV 09/27/24 22:00 09/28/24 05:41 25 MLS/HR Metronidazole 100 ml @ 100 mls/hr Q8H IV 09/27/24 21:00 09/28/24 04:25 100 MLS/HR Atorvastatin Calcium 40 mg HS PO 09/27/24 22:00 09/27/24 22:25 40 MG Laboratory Results Laboratory Tests 09/28/24 02:00 Chemistry Test 09/28/24 02:00 Albumin 4.0 g/dL (3.2-4.8) Calcium Level 8.9 mg/dL (8.7-10.4) Total Protein 6.4 g/dL (5.7-8.2) LFT Test 09/28/24 02:00 Alanine Aminotransferase (ALT) 13 U/L (7-40) Alkaline Phosphatase 83 U/L (46-116) Aspartate Amino Transferase (AST) 17 U/L (13-40) Total Bilirubin 0.4 mg/dL (0.2-1.0) Microbiology Microbiology Date/Time Source Procedure Growth Status 09/27/24 09:55 Blood Blood Culture - Preliminary NO GROWTH AFTER 24 HOURS OF INCUBATION. Resulted Labs and/or images reviewed: Labs reviewed by me, Image(s) reviewed by me Assessment/Plan Assessment/Plan Impression: -sepsis -decubitus ulcer -proctitis -cachexia -acute kidney injury -Pneumobilia Plan: -continue antibiotic therapy -kovacs cultures -clear liquid diet -GI consultation -IV hydration -potassium replacement -PUD, DVT prophylaxis -repeat labs in a.m. Total time spent with patient discussing and formulating plan of care: 35 minutes. This medical document was created using an electronic medical record system with [email or web address] dictation system. Although this document has been carefully reviewed, there may still be some phonetic and typographical errors. These areas are purely typographical due to imperfections of the software programs, and do not reflect any compromise in the patient's medical care. Plan discussed with: Patient, Other (RN) My Orders Orders - PORFIRIO COPELAND NP Procedure Category Date Status Time D5 1/2 Ns Potassium PHA 09/28/24 Verified 20meq 12:15 Date of Service: Sep 28, 2024 Billing Provider: PORFIRIO COPELAND NP Common Visit Codes: [id number] INP/OBS CARE(HIGH) PORFIRIO COPELAND NP Sep 28, 2024 12:34
[2024-09-28 13:00] VITALS: BP 107/61; PULSE 89; RESP 18; TEMP 98; O2SAT 96
[2024-09-28 17:00] VITALS: BP 112/60; PULSE 90; RESP 16; TEMP 98; O2SAT 98
[2024-09-28] MEDS: VANCOMYCIN HCL 250 MG CAP PO SCH (17:55)
[2024-09-28] MEDS: POTASSIUM CHL 20 Meq TABLET PO ONE (17:56)
[2024-09-28 19:24] VITALS: PULSE 93; RESP 12; O2SAT 97
--- NOTE | 2024-09-28 19:30 | DVHINCON2 ---
Date of service: Sep 28, 2024 Referring Physician Esteban Valerio Reason for Consultation UGI bleed and pneumobilia History of Present Illness 69 year old male presents to the ED via EMS with a chief complaint of hematemesis. Per EMS, patient is from a long-term, patient is currently exper iencing nausea, vomiting, hematemesis described as dark vomit with blood, as well as melena and blood in stool, with RUQ pain, described as a pressure sensation, rates pain 8/10. He is currently on Plavix and Eliquis. Upon EMS arrival, patient was hypotensive was BP 80 systolic, tachycardiac with 120 bpm. Was given 4 mg Zofran in route to ED. Patient has wounds to RT ankle, above RT ankle and sacral region. Past Medical History PMHx CHF, HTN, HL, DM, CVA with LT sided deficits. Past Surgical History 04/15 Laparoscopy, evacuation of right upper quadrant biloma and abscess evacuation of myriad of small black gallstones, cholecystectomy. Allergies: Coded Allergies: NO KNOWN ALLERGIES (Unverified , 03/28/24) Home Meds Active Scripts Insulin Regular (Human) (Novolin R) 100 Unit/Ml Inj, 1-10 UNITS SC HSPRN PRN for 90 Days, #10 INJ Prov:ALLA STRINGER MD 04/21/24 Famotidine (Famotidine) 20 Mg Tab, 20 MG PO EOD for 30 Days, #30 TAB Prov:ALLA STRINGER MD 04/21/24 Atorvastatin Calcium (ATORVASTATIN CALCIUM) 20 Mg Tab, 40 MG PO HS for 90 Days, #90 TAB Hold if calf muscle pains Prov:ALLA STRINGER MD 04/21/24 Apixaban Base (ELIQUIS) 5 Mg Tab, 5 MG PO BID for 90 Days, #180 TAB Hold if internal bleeding Prov:ALLA STRINGER MD 04/21/24 Current Medications Current Medications Medications (Trade) Dose Ordered Sig/Aruna Route PRN Reason Start Time Stop Time Status Last Admin Pantoprazole Sodium (Protonix) 40 mg DAILY IV 09/28/24 10:00 09/28/24 09:07 Piperacillin Sod/ Tazobactam Sod 100 ml @ 25 mls/hr Q8HR IV 09/27/24 22:00 09/28/24 14:38 DC 09/28/24 05:41 Metronidazole 100 ml @ 100 mls/hr Q8H IV 09/27/24 21:00 09/28/24 15:00 Atorvastatin Calcium (Lipitor) 40 mg HS PO 09/27/24 22:00 09/27/24 22:25 Potassium Chloride/Dextrose/ Sod Cl 1,000 ml @ 75 mls/hr [id number] IV 09/28/24 12:15 09/28/24 12:15 Morphine Sulfate 1 mg Q4HPRN PRN IV SEVERE PAIN (7-10 PAIN SCALE) 09/28/24 12:30 Acetaminophen/ Hydrocodone Bitart ([place] 5/325MG Tab) 1 tab Q6HPRN PRN PO MODERATE PAIN (4-6 PAIN SCALE) 09/28/24 12:30 Acetaminophen (Tylenol Tablet Or Capsule) 500 mg Q8HP PRN PO PAIN SCALE 1-3 OR TEMP>100.4 09/28/24 12:30 Saccharomyces Boulardii (Florastor) 250 mg BID PO 09/28/24 22:00 Vancomycin HCl (Vancomycin Hydrochloride) 250 mg QID PO 09/28/24 18:00 09/28/24 17:55 Vital Signs Vital Signs Date Time Temp Pulse Resp B/P (MAP) Pulse Ox O2 Delivery O2 Flow Rate FiO2 09/28/24 19:06 93 09/28/24 17:00 98.0 16 112/60 (77) 98 98.0 09/27/24 13:06 Room Air* 0 21 Physical Exam General Appearance: Alert, Oriented X3, Cooperative, mild distress HEENT: Atraumatic, PERRLA Lungs: Clear to auscultation, Normal air movement Cardiovascular: Normal S1, Normal S2 Abdomen: Normal bowel sounds, Soft, No tenderness Genitourinary: No Apparent Abnormalities Musculoskeletal: Normal sensory function, Normal motor function Skin: Dry, Intact Psych/Mental Status: Mental status NL, Mood NL Labs/Diagnostic Data Labs Test 09/28/24 02:00 09/27/24 14:02 09/27/24 09:55 Range/Units White Blood Count 15.9 H 4.4-10.8 10^3/uL Red Blood Count 3.49 L 4.5-5.90 10^6/uL Hemoglobin 10.9 L 13.5-17.5 g/dL Hematocrit 32.3 #L 41.0-53.0 % Mean Corpuscular Volume 92.5 80.0-100.0 fL Mean Corpuscular Hemoglobin 31.2 28.0-32.0 pg Mean Corpuscular Hemoglobin Concent 33.7 32.0-36.0 g/dL Red Cell Distribution Width 14.0 11.8-14.3 % Platelet Count 349 140-450 10^3/uL Mean Platelet Volume 6.7 L 6.9-10.8 fL Neutrophils (%) (Auto) 89.1 H 37.0-80.0 % Lymphocytes (%) (Auto) 6.2 L 10.0-50.0 % Monocytes (%) (Auto) 4.6 0.0-12.0 % Eosinophils (%) (Auto) 0.0 0.0-7.0 % Basophils (%) (Auto) 0.1 0.0-2.0 % Neutrophils # (Auto) 14.2 H 1.6-8.6 10 ^3/uL Lymphocytes # (Auto) 1.0 0.4-5.4 10 ^3/uL Monocytes # (Auto) 0.7 0-1.3 10 ^3/uL Eosinophils # (Auto) 0 0-0.8 10 ^3/uL Basophils # (Auto) 0 0-0.2 10 ^3/uL Nucleated Red Blood Cells 0.1 % Sodium Level 147 H 136-145 mmol/L Potassium Level 3.2 L 3.5-5.1 mmol/L Chloride Level 106 98-107 mmol/L Carbon Dioxide Level 25 20-31 mmol/L Anion Gap 16 H 5-15 Blood Urea Nitrogen 23 9-23 mg/dL Creatinine 0.74 0.700-1.30 mg/dL Glomerular Filtration Rate Calc 99 >90 mL/min BUN/Creatinine Ratio 31.1 H 10.0-20.0 Serum Glucose 128 H 74-106 mg/dL Calcium Level 8.9 8.7-10.4 mg/dL Total Bilirubin 0.4 0.2-1.0 mg/dL Aspartate Amino Transferase (AST) 17 13-40 U/L Alanine Aminotransferase (ALT) 13 7-40 U/L Alkaline Phosphatase 83 46-116 U/L Total Protein 6.4 5.7-8.2 g/dL Albumin 4.0 3.2-4.8 g/dL Stool Occult Blood Negative Negative Stool Occult Blood Sample #3 Negative Prothrombin Time 11.8 9.3-11.8 sec Prothrombin Time INR 1.13 0.9-1.15 Activated Partial Thromboplast Time 29.8 24.5-34.5 SEC Lactic Acid Level 1.3 0.4-2.0 mmol/L Magnesium Level 1.9 1.6-2.6 mg/dL Microbiology Date/Time Source Procedure Growth Status 09/27/24 14:02 Stool Stool Culture Pending Resulted 09/27/24 14:02 Stool Shiga Toxin I & II Pending Resulted 09/27/24 14:02 Stool Clostridium difficile Toxin Assay - Final Resulted 09/27/24 09:55 Blood Blood Culture - Preliminary NO GROWTH AFTER 24 HOURS OF IN[address]ATION. Resulted CT SCAN ABD PELVIS IMPRESSION: Cholecystectomy clips are noted. Pneumobilia in the intra / extrahepatic bile ducts and common bowel duct could be seen with cholangitis. Prominent rectal wall thickening could be seen with proctitis. Problems(with codes): (1) UGI bleed (2) Sepsis, unspecified organism (3) Diabetic ulcer of ankle (4) Cerebrovascular accident (CVA) with left hemiparesis (5) Leukocytosis Plan/Recommendation Plan Protonix 40 mg IV q.12 hours Monitor serial labs If hemoglobin drops below seven we will transfuse 1 unit PRBC Hold blood thinners and aspirin Clear liquid diet for today Re-evaluate patient in the morning to see if he is stable and willing to proceed with an endoscopy Pneumobilia likely due to previous biliary manipulation and previous cholecystos donald tube Liver enzymes are normal Patient has been started on antibiotics IV Monitor conservatively at this time Patient has been scheduled for an MRI MRCP Plan discussed with: Other (None) EMLIY NELSON MD Sep 28, 2024 19:30
[2024-09-28] MEDS: FLORASTOR (S. BOULARDII) 250 MG CAP PO SCH (22:20)
[2024-09-29 08:00] VITALS: PULSE 87; RESP 9; O2SAT 97
[2024-09-29] MEDS ORDERED: SODIUM CHLORIDE LOCK 10 ML ONE (08:45)
[2024-09-29] MEDS ORDERED: LIDOCAINE VISCOUS 2% 15ML UD ONE (08:45)
[2024-09-29] MEDS ORDERED: MIDAZOLAM HCL 5 MG/ML-1ML VIAL ONE (08:46)
[2024-09-29] MEDS ORDERED: diphenhdrAMINE HCL 50 MG/1 ML VL ONE (08:46)
[2024-09-29] MEDS ORDERED: fentaNYL CITRATE 100 MCG/2 ML VL ONE (08:46)
--- NOTE | 2024-09-29 10:14 | DVHPN2 ---
Subjective Patient reporting nausea Reviewed: Care Plan, H&P, Labs, Medications Changes from previous H/P or p: No Changes General: Per HPI Gastrointestinal: Nausea, Vomiting, Abdominal Pain, Diarrhea, Melena, Other (Hematemesis) Skin: Other (Stage 2-3 sacral wound and right ankle) Objective Vitals Vital Signs Date Time Temp Pulse Resp B/P (MAP) Pulse Ox O2 Delivery O2 Flow Rate FiO2 09/29/24 09:00 83 12 97/61 (73) 96 09/29/24 08:00 Room Air* 0 21 09/28/24 23:41 98.3 98.3 Intake/Output Intake and Output 09/29/24 07:00 Intake Total 325 ml Balance 325 ml Intake IV Total 325 ml General Appearance: Alert, Oriented X3, Cooperative, mild distress HEENT: Atraumatic, PERRLA Lungs: Clear to auscultation, Normal air movement Cardiovascular: Normal S1, Normal S2 Abdomen: Normal bowel sounds, Soft, No tenderness Genitourinary: No Apparent Abnormalities Musculoskeletal: Normal sensory function, Normal motor function Skin: Dry, Intact Psych/Mental Status: Mental status NL, Mood NL Medications Current Medications Medications Dose Ordered Sig/Aruna Route Start Time Stop Time Status Last Admin Dose Admin Ondansetron HCl 4 mg Q4HP PRN IV 09/27/24 14:00 09/29/24 06:07 4 MG Acetaminophen 650 mg Q6HP PRN PO 09/27/24 14:00 09/27/24 14:19 650 MG Pantoprazole Sodium 40 mg DAILY IV 09/28/24 10:00 09/28/24 09:07 40 MG Metronidazole 100 ml @ 100 mls/hr Q8H IV 09/27/24 21:00 09/29/24 05:03 100 MLS/HR Atorvastatin Calcium 40 mg HS PO 09/27/24 22:00 09/28/24 22:21 40 MG Potassium Chloride/Dextrose/ Sod Cl 1,000 ml @ 75 mls/hr [id number] IV 09/28/24 12:15 09/28/24 21:21 75 MLS/HR Morphine Sulfate 1 mg Q4HPRN PRN IV 09/28/24 12:30 Acetaminophen/ Hydrocodone Bitart 1 tab Q6HPRN PRN PO 09/28/24 12:30 Acetaminophen 500 mg Q8HP PRN PO 09/28/24 12:30 Saccharomyces Boulardii 250 mg BID PO 09/28/24 22:00 09/28/24 22:20 250 MG Vancomycin HCl 250 mg QID PO 09/28/24 18:00 09/28/24 22:21 250 MG Laboratory Results Laboratory Tests 09/28/24 02:00 Microbiology Microbiology Date/Time Source Procedure Growth Status 09/27/24 14:02 Stool Stool Culture - Final Complete 09/27/24 14:02 Stool Shiga Toxin I & II - Final Complete 09/27/24 14:02 Stool Clostridium difficile Toxin Assay - Final Complete 09/27/24 09:55 Blood Blood Culture - Preliminary NO GROWTH AFTER 24 HOURS OF INCUBATION. Resulted Labs and/or images reviewed: Labs reviewed by me, Image(s) reviewed by me Assessment/Plan Assessment/Plan Impression: -sepsis -decubitus ulcer -proctitis -cachexia -acute kidney injury -Pneumobilia -C diff colitis Plan: Events: I was called yesterday, notified that patient was positive for C diff. antibiotics were altered to include IV Flagyl, p.o. vancomycin, as well as adding probiotic with Florastor. GI consultation was placed by admitting hospitalist. Currently patient is NPO, pending EGD. -restart full liquid diet once patient has had EGD or if procedure is canceled. -continue current C diff regimen -kovacs cultures -GI consultation -IV hydration -potassium replacement -PUD, DVT prophylaxis -repeat labs in a.m. Total time spent with patient discussing and formulating plan of care: 35 minutes. This medical document was created using an electronic medical record system with [employer] dictation system. Although this document has been carefully reviewed, there may still be some phonetic and typographical errors. These areas are purely typographical due to imperfections of the software programs, and do not reflect any compromise in the patient's medical care. Plan discussed with: Patient, Other (RN) My Orders Orders - PORFIRIO COPELAND TRIMMING MACHINE OPERATOR Procedure Category Date Status Time D5w/Sod Chl 0.45%/Kcl PHA 09/28/24 In Process 20meq 12:15 Urinalysis LAB 09/28/24 Logged 12:16 Morphine Sulfate PHA 09/28/24 In Process Injection 12:30 Hydrocodone-Acet PHA 09/28/24 In Process 5/325mg Tab ([place] 12:30 Acetaminophen Tab Or PHA 09/28/24 In Process Cap (Tylenol Tablet 12:30 Florastor (S. PHA 09/28/24 In Process Boulardii) (Florastor) 22:00 Vancomycin Po PHA 09/28/24 In Process (Vancomycin 18:00 * Dietary Consult CONS 09/28/24 Transmitted 17:35 Cleanse Wound With JENNIFER 09/28/24 In Process Wound Clean 17:36 Apply: JENNIFER 09/28/24 In Process 17:36 Foam Cradle To ORDERS 09/28/24 Transmitted Bilateral Feet 17:36 Basic Metabolic Panel LAB 09/29/24 Logged 10:01 Complete Blood Count LAB 09/29/24 Logged 10:01 Magnesium LAB 09/29/24 Logged 10:01 Date of Service: Sep 29, 2024 Billing Provider: PORFIRIO COPELAND NP Common Visit Codes: [id number] INP/OBS CARE(HIGH) PORFIRIO COPELAND NP Sep 29, 2024 10:14
[2024-09-29 14:22] LABS: Hematocrit 30.9 % (41.0-53.0); Hemoglobin 10.1 g/dL (13.5-17.5); Mean Corpuscular Hemoglobin 29.9 pg (28.0-32.0); Mean Corpuscular Volume 91.6 fL (80.0-100.0); Nucleated Red Blood Cells % 0.0 %
[2024-09-29 14:33] LABS: Potassium 3.5 mmol/L (3.5-5.1); Sodium 145 mmol/L (136-145)
[2024-09-29 14:34] LABS: Anion Gap 9 (5-15); Carbon Dioxide 26 mmol/L (20-31)
[2024-09-29 14:35] LABS: Calcium 8.2 mg/dL (8.7-10.4); Chloride 110 mmol/L (98-107)
[2024-09-29 14:40] LABS: BUN/Creatinine Ratio 35.4 (10.0-20.0); Blood Urea Nitrogen 17 mg/dL (9-23); Magnesium 1.7 mg/dL (1.6-2.6)
--- NOTE | 2024-09-29 14:40 | DVHPN2 ---
Progress Note - Dictate Date Seen: Sep 29, 2024 Medical Necessity Reason Pt with a Central, PICC or Fol: No Subjective No new complaints Patient is still having nausea and vomiting No active GI bleeding is reported His stool for occult blood is negative Repeat hemoglobin is 10.1 Patient's stool for C diff came back positive but bacterial culture is negative Pt has started on IV Flagyl and oral vancomycin vital signs Vital Sign Date Time Temp Pulse Resp B/P (MAP) Pulse Ox O2 Delivery O2 Flow Rate FiO2 09/29/24 14:00 87 12 112/64 (80) 99 09/29/24 08:00 Room Air* 0 21 09/28/24 23:41 98.3 98.3 Total Intake and Output 09/28/24 09/28/24 09/29/24 15:00 23:00 07:00 Intake Total 175 ml 150 ml Balance 175 ml 150 ml medications Current Medications Medications Dose Ordered Sig/Aruna Route Start Time Stop Time Status Last Admin Dose Admin Ondansetron HCl 4 mg Q4HP PRN IV 09/27/24 14:00 09/29/24 06:07 4 MG Acetaminophen 650 mg Q6HP PRN PO 09/27/24 14:00 09/27/24 14:19 650 MG Pantoprazole Sodium 40 mg DAILY IV 09/28/24 10:00 09/29/24 10:21 40 MG Metronidazole 100 ml @ 100 mls/hr Q8H IV 09/27/24 21:00 09/29/24 13:36 100 MLS/HR Atorvastatin Calcium 40 mg HS PO 09/27/24 22:00 09/28/24 22:21 40 MG Potassium Chloride/Dextrose/ Sod Cl 1,000 ml @ 75 mls/hr [id number] IV 09/28/24 12:15 09/29/24 13:37 75 MLS/HR Morphine Sulfate 1 mg Q4HPRN PRN IV 09/28/24 12:30 Acetaminophen/ Hydrocodone Bitart 1 tab Q6HPRN PRN PO 09/28/24 12:30 Acetaminophen 500 mg Q8HP PRN PO 09/28/24 12:30 Saccharomyces Boulardii 250 mg BID PO 09/28/24 22:00 09/29/24 10:21 250 MG Vancomycin HCl 250 mg QID PO 09/28/24 18:00 09/29/24 12:42 250 MG objective General Appearance: Alert, Oriented X3, Cooperative, mild distress HEENT: Atraumatic, PERRLA Lungs: Clear to auscultation, Normal air movement Cardiovascular: Normal S1, Normal S2 Abdomen: Normal bowel sounds, Soft, No tenderness Genitourinary: No Apparent Abnormalities Musculoskeletal: Normal sensory function, Normal motor function Skin: Dry, Intact Psych/Mental Status: Mental status NL, Mood NL laboratory and microbiology Laboratory Tests 09/29/24 13:56 Test 09/29/24 13:56 Range/Units Serum Glucose Pending Problems(with codes): (1) C. difficile enteritis (2) Nausea & vomiting (3) UGI bleed (4) Cerebrovascular accident (CVA) with left hemiparesis Prognosis Plan Patient was tentatively scheduled for an endoscopy today However this has been canceled due to scheduling problems with isolation requirements Patient also has no evidence of active ongoing GI bleeding and H&H is stable and stool for C diff is negative Continue treatment for C diff with oral vancomycin Add Florastor Maintained on Protonix 40 mg p.o. twice a day and Carafate 1 g p.o. twice a day I will monitor his labs and schedule him for an endoscopy once he is stabilized and able to be scheduled Plan discussed with: Other (ER Nurse) Is the fluid challenge complet: Yes Date of Reassessment: Sep 27, 2024 Time of Reassessment: 1200 Blood Culture Time: 1000 Time Antibiotics Given: 1100 Systolic BP: 111 Diastolic BP: 73 Blood Pressure Mean: 86 Respiration: 17 Respiratory Effort: Non-Labored Respiratory Pattern: Regular Oxygen Saturation: 95 Pulse Rate: 98 Pulse Location: Radial Pulse Strength: Normal Pulse Assessment Method: Palpation Pulse Rhythm: Regular Capillary Refill: < 3 seconds Heart Sounds: S1 & S2 Breath sounds: Clear Skin Moisture: Dry Skin Tugor: Taut Skin Color: Pale EMILY NELSON MD Sep 29, 2024 14:40
[2024-09-29 14:46] LABS: Glucose 129 mg/dL (74-106)
[2024-09-29 19:30] VITALS: PULSE 80; RESP 15; O2SAT 98
[2024-09-29] MEDS: SUCRALFATE 1 GM/10 ML ORAL SUSP PO SCH (21:45)
[2024-09-30] VITALS (7 sets, daily range): BP systolic 109–137; BP diastolic 74–80; PULSE 72–95; RESP 15–18; TEMP 97.3–98.1; O2SAT 93–100
[2024-09-30 06:45] LABS: Urine Protein, UAD Negative (Negative)
--- NOTE | 2024-09-30 08:48 | DVHPN2 ---
Subjective Patient reporting nausea Reviewed: Care Plan, H&P, Labs, Medications Changes from previous H/P or p: No Changes General: Per HPI Gastrointestinal: Nausea, Vomiting, Abdominal Pain, Diarrhea, Melena, Other (Hematemesis) Skin: Other (Stage 2-3 sacral wound and right ankle) Objective Vitals Vital Signs Date Time Temp Pulse Resp B/P (MAP) Pulse Ox O2 Delivery O2 Flow Rate FiO2 09/30/24 08:00 90 09/30/24 06:00 22 129/66 (87) 98 09/29/24 21:00 98.0 98.0 09/29/24 19:30 Room Air* 0 21 Intake/Output Intake and Output 09/30/24 07:00 Intake Total 1600 ml Balance 1600 ml Intake IV Total 1600 ml General Appearance: Alert, Oriented X3, Cooperative, mild distress HEENT: Atraumatic, PERRLA Lungs: Clear to auscultation, Normal air movement Cardiovascular: Normal S1, Normal S2 Abdomen: Normal bowel sounds, Soft, No tenderness Genitourinary: No Apparent Abnormalities Musculoskeletal: Normal sensory function, Normal motor function Skin: Dry, Intact Psych/Mental Status: Mental status NL, Mood NL Medications Current Medications Medications Dose Ordered Sig/Aruna Route Start Time Stop Time Status Last Admin Dose Admin Ondansetron HCl 4 mg Q4HP PRN IV 09/27/24 14:00 09/29/24 06:07 4 MG Acetaminophen 650 mg Q6HP PRN PO 09/27/24 14:00 09/27/24 14:19 650 MG Pantoprazole Sodium 40 mg DAILY IV 09/28/24 10:00 09/29/24 10:21 40 MG Metronidazole 100 ml @ 100 mls/hr Q8H IV 09/27/24 21:00 09/30/24 05:32 100 MLS/HR Atorvastatin Calcium 40 mg HS PO 09/27/24 22:00 09/29/24 21:45 40 MG Potassium Chloride/Dextrose/ Sod Cl 1,000 ml @ 75 mls/hr [id number] IV 09/28/24 12:15 09/30/24 03:00 75 MLS/HR Morphine Sulfate 1 mg Q4HPRN PRN IV 09/28/24 12:30 Acetaminophen/ Hydrocodone Bitart 1 tab Q6HPRN PRN PO 09/28/24 12:30 Acetaminophen 500 mg Q8HP PRN PO 09/28/24 12:30 Saccharomyces Boulardii 250 mg BID PO 09/28/24 22:00 09/29/24 21:45 250 MG Vancomycin HCl 250 mg QID PO 09/28/24 18:00 09/30/24 05:32 250 MG Sucralfate 1 gm BID@0600,2200 PO 09/29/24 22:00 09/30/24 05:32 1 GM Laboratory Results Laboratory Tests 09/29/24 13:56 Chemistry Test 09/29/24 13:56 Calcium Level 8.2 mg/dL (8.7-10.4) L Magnesium Level 1.7 mg/dL (1.6-2.6) Urinalysis Test 09/30/24 05:37 Urine Color Yellow (Yellow) Urine Clarity Clear (Clear) Urine pH 6.0 (5.0-9.0) Urine Specific [place] 1.021 (1.001-1.035) Urine Protein Negative (Negative) Urine Ketones Negative (Negative) Urine Blood Negative /uL (Negative) Urine Nitrite Negative (Negative) Urine Bilirubin Negative (Negative) Urine Urobilinogen Normal mg/dL (Negative) Urine Leukocyte Esterase Negative /uL (Negative) Urine RBC 1 /hpf (0 - 3) Urine Microscopic WBC 2 /HPF (0-3) Urine Squamous Epithelial Cells Few /hpf (<5) Urine Bacteria Few /hpf (None Seen) H Urine Sperm Present /hpf (None Seen) Urine Glucose Normal mg/dL (Normal) Microbiology Microbiology Date/Time Source Procedure Growth Status 09/27/24 14:02 Stool Stool Culture - Final Complete 09/27/24 14:02 Stool Shiga Toxin I & II - Final Complete 09/27/24 14:02 Stool Clostridium difficile Toxin Assay - Final Complete 09/27/24 09:55 Blood Blood Culture - Preliminary NO GROWTH AFTER 48 HOURS OF INCUBATION. Resulted Labs and/or images reviewed: Labs reviewed by me, Image(s) reviewed by me Assessment/Plan Assessment/Plan Impression: -sepsis -decubitus ulcer -proctitis -cachexia -acute kidney injury -Pneumobilia -C diff colitis Plan: Events: EGD was canceled. Discussed with primary nurse, Awais, plan of care. No BMs reported overnight. Advance to mechanical soft diet. -continue current C diff regimen -GI consultation -IV hydration -potassium replacement -PUD, DVT prophylaxis -repeat labs in a.m. Total time spent with patient discussing and formulating plan of care: 35 minutes. This medical document was created using an electronic medical record system with [employer] system. Although this document has been carefully reviewed, there may still be some phonetic and typographical errors. These areas are purely typographical due to imperfections of the software programs, and do not reflect any compromise in the patient's medical care. Plan discussed with: Patient, Other (RN) My Orders Orders - PORFIRIO COPELAND NP Procedure Category Date Status Time Basic Metabolic Panel LAB 10/01/24 Verified 05:00 Basic Metabolic Panel LAB 10/02/24 Verified 05:00 Basic Metabolic Panel LAB 10/03/24 Verified 05:00 Complete Blood Count LAB 10/01/24 Verified 05:00 Complete Blood Count LAB 10/02/24 Verified 05:00 Complete Blood Count LAB 10/03/24 Verified 05:00 Date of Service: Sep 30, 2024 Billing Provider: PORFIRIO COPELAND NP Common Visit Codes: [id number] INP/OBS CARE(HIGH) PORFIRIO COPELAND NP Sep 30, 2024 08:48
[2024-09-30] MEDS ORDERED: FLUMAZENIL 0.1 MG/ML INJ 10ML MDV IV ONE (10:18)
[2024-09-30] MEDS ORDERED: EPINEPHrine HCL 1 MG/10 ML SYRG ONE (10:21)
[2024-09-30] MEDS ORDERED: NALOXONE HCL 0.4 MG/ML VIAL ONE (10:21)
[2024-09-30] MEDS ORDERED: LIDOCAINE VISCOUS 2% 15ML UD ONE (10:21)
[2024-09-30] MEDS ORDERED: GLYCOPYRROLATE 0.2 MG/ML 1ML VIAL ONE (10:22)
[2024-09-30] MEDS: MIDAZOLAM HCL 2MG/2ML 2ml VIAL (1mg/ml) ONE (15:15)
[2024-09-30] MEDS: fentaNYL CITRATE 100 MCG/2 ML VL ONE (15:15)
[2024-09-30] MEDS: diphenhdrAMINE HCL 50 MG/1 ML VL ONE (15:15)
--- NOTE | 2024-09-30 15:32 | DVHOP2 ---
Operative Report DATE OF OPERATION: 09/30/24 PROCEDURE: Upper Endoscopy with biopsy. PREOPERATIVE INDICATION: The patient is a 69 -year-old male undergoing endoscopy for history of upper GI bleed melena and anemia POSTOPERATIVE DIAGNOSES: 1. 2 cm sliding-type hiatal hernia with grade B linear erosive esophagitis and distal esophageal ulceration 2. Mild gastritis and mild gastroparesis otherwise normal examination of the 2nd and 3rd part of the duodenum PROCEDURE PERFORMED BY: Emily Henley GI NURSE: Sophie SCOPE: Olympus videoendoscope. ASA CLASS: 3 PREOPERATIVE MEDICATIONS: Versed 1 mg, Fentanyl 50 mcg, Benadryl 50 mg I administered moderate sedation throughout this _8_ minutes procedure. An independent trained observer pushed medications at my direction, and monitored the patient's level of consciousness and physiological status throughout. PROCEDURE IN DETAIL: After obtaining an informed consent, the patient was placed on left lateral decubitus position. The patient was then sedated with the above medications. A bite block was placed between his teeth. The endoscope was then passed through the oropharynx, into the esophagus, and through the stomach and pylorus up to the second and third part of the duodenum. The endoscope was then withdrawn. Second and 3rd part of the duodenum and the duodenal bulb were normal duodenal biopsies were obtained The pre-pyloric area and antrum and body showed mild gastritis. Gastric biopsies were obtained On retroflexion the fundus and cardia were normal. There was some gastroparesis with retained bile and old coffee-ground that were suction The endoscope was then withdrawn into distal esophagus where the patient had a 2-3 cm sliding-type hiatal hernia There was grade B linear erosive esophagitis with distal esophageal ulcerations from which biopsies were obtained. Remaining distal and proximal esophagus and oropharynx were unremarkable The patient tolerated the procedure well without difficulty. COMPLICATIONS : None SPECIMENS: Duodenal biopsies Gastric biopsies Esophageal biopsies DISPOSITION: Transfer back to the floor Stable PLAN: 1. Await for biopsy result 2. Will place pt on Protonix 40 mg bid IV 3. Carafate 1 g p.o. 4 times a day 4. Resume full liquid diet advance as tolerated 5. Outpatient follow up to discuss elective colonoscopy if required EMILY HENLEY MD Sep 30, 2024 15:32
[2024-09-30] MEDS: METOCLOPRAMIDE HCL 10 MG TAB PO ONE (15:45)
[2024-09-30] MEDS: PANTOPRAZOLE 40 MG TAB PO SCH (17:48)
[2024-10-01] VITALS (7 sets, daily range): BP systolic 98–135; BP diastolic 61–94; PULSE 84–100; RESP 15–18; TEMP 97.6–98.4; O2SAT 95–100
[2024-10-01 10:39] LABS: Hematocrit 34.2 % (41.0-53.0); Hemoglobin 11.8 g/dL (13.5-17.5); Mean Corpuscular Hemoglobin 31.9 pg (28.0-32.0); Mean Corpuscular Volume 92.6 fL (80.0-100.0); Nucleated Red Blood Cells % 0.1 %
[2024-10-01 10:47] LABS: Potassium 4.3 mmol/L (3.5-5.1); Sodium 141 mmol/L (136-145)
[2024-10-01 10:48] LABS: Anion Gap 9 (5-15); Carbon Dioxide 25 mmol/L (20-31)
[2024-10-01] MEDS ORDERED: VANC125C3 PO (10:51)
[2024-10-01 10:53] LABS: BUN/Creatinine Ratio 14.0 (10.0-20.0)
[2024-10-01 10:56] LABS: Chloride 107 mmol/L (98-107)
[2024-10-01 10:57] LABS: Blood Urea Nitrogen 7 mg/dL (9-23); Calcium 8.3 mg/dL (8.7-10.4); Glucose 221 mg/dL (74-106)
--- NOTE | 2024-10-01 14:46 | DVHDS2 ---
Discharge Summary Date of Admission Sep 27, 2024 at 13:48 Date of Discharge: Oct 01, 2024 Admitting Diagnosis Sepsis Labs/Diagnostic Data: Laboratory Results Test 10/01/24 10:15 09/30/24 05:37 09/29/24 13:56 09/28/24 02:00 White Blood Count 10.4 10^3/uL (4.4-10.8) Red Blood Count 3.69 10^6/uL (4.5-5.90) Hemoglobin 11.8 g/dL (13.5-17.5) Hematocrit 34.2 % (41.0-53.0) Mean Corpuscular Volume 92.6 fL (80.0-100.0) Mean Corpuscular Hemoglobin 31.9 pg (28.0-32.0) Mean Corpuscular Hemoglobin Concent 34.4 g/dL (32.0-36.0) Red Cell Distribution Width 13.9 % (11.8-14.3) Platelet Count 345 10^3/uL (140-450) Mean Platelet Volume 6.7 fL (6.9-10.8) Neutrophils (%) (Auto) 72.0 % (37.0-80.0) Lymphocytes (%) (Auto) 17.9 % (10.0-50.0) Monocytes (%) (Auto) 8.1 % (0.0-12.0) Eosinophils (%) (Auto) 1.6 % (0.0-7.0) Basophils (%) (Auto) 0.4 % (0.0-2.0) Neutrophils # (Auto) 7.5 10 ^3/uL (1.6-8.6) Lymphocytes # (Auto) 1.9 10 ^3/uL (0.4-5.4) Monocytes # (Auto) 0.8 10 ^3/uL (0-1.3) Eosinophils # (Auto) 0.2 10 ^3/uL (0-0.8) Basophils # (Auto) 0 10 ^3/uL (0-0.2) Nucleated Red Blood Cells 0.1 % Sodium Level 141 mmol/L (136-145) Potassium Level 4.3 mmol/L (3.5-5.1) Chloride Level 107 mmol/L (98-107) Carbon Dioxide Level 25 mmol/L (20-31) Anion Gap 9 (5-15) Blood Urea Nitrogen 7 mg/dL (9-23) Creatinine 0.50 mg/dL (0.700-1.30) Glomerular Filtration Rate Calc 112 mL/min (>90) BUN/Creatinine Ratio 14.0 (10.0-20.0) Serum Glucose 221 mg/dL (74-106) Calcium Level 8.3 mg/dL (8.7-10.4) Urine Color Yellow (Yellow) Urine Clarity Clear (Clear) Urine pH 6.0 (5.0-9.0) Urine Specific [place] 1.021 (1.001-1.035) Urine Protein Negative (Negative) Urine Ketones Negative (Negative) Urine Blood Negative /uL (Negative) Urine Nitrite Negative (Negative) Urine Bilirubin Negative (Negative) Urine Urobilinogen Normal mg/dL (Negative) Urine Leukocyte Esterase Negative /uL (Negative) Urine RBC 1 /hpf (0 - 3) Urine Microscopic WBC 2 /HPF (0-3) Urine Squamous Epithelial Cells Few /hpf (<5) Urine Bacteria Few /hpf (None Seen) Urine Sperm Present /hpf (None Seen) Urine Glucose Normal mg/dL (Normal) Magnesium Level 1.7 mg/dL (1.6-2.6) Total Bilirubin 0.4 mg/dL (0.2-1.0) Aspartate Amino Transferase (AST) 17 U/L (13-40) Alanine Aminotransferase (ALT) 13 U/L (7-40) Alkaline Phosphatase 83 U/L (46-116) Total Protein 6.4 g/dL (5.7-8.2) Albumin 4.0 g/dL (3.2-4.8) Test 09/27/24 14:02 09/27/24 09:55 Stool Occult Blood Negative (Negative) Stool Occult Blood Sample #3 (Negative) Prothrombin Time 11.8 sec (9.3-11.8) Prothrombin Time INR 1.13 (0.9-1.15) Activated Partial Thromboplast Time 29.8 SEC (24.5-34.5) Lactic Acid Level 1.3 mmol/L (0.4-2.0) Other Laboratory Tests 10/01/24 10:15 Brief Hx & Hospital Course: History of Present Illness This is a 69-year-old bed-bound and contracted male with history of hypertension, hyperlipidemia, CVA with left-sided weakness and contraction, and CHF who presents to ED with chief complaint of abdominal pain associated with hematemesis, nausea, vomiting and melena in stool. He currently resides in a boarding care, ex- at bedside who has power of estate planning attorney is answering all medical questions. The patient is currently on Plavix and Eliquis. In the ER, the patient was found to be hypotensive with SBP 80 with a heart rate of 120 beats per minute. The patient was given 4 mg IV Zofran EN route to ED. the patient currently has stage 2-3 sacral wound along with right ankle wound. The patient and ex- is wanting to be further evaluated and treated due to chief complaint. The patient will be admitted under hospitalist care to the telemetry unit for continuous monitoring. The patient denies fever, chills, headache, dizziness, palpitation, breath, chest pain, constipation and other associated symptoms. The plan has been discussed with the patient, ex- and primary RN in which all questions concerns have been addressed Course of hospitalization: Patient had CT scan of the abdomen and pelvis. Findings of liver and gallbladder area on CT scan, probably secondary to previous cholecystectomy surgery with previous cholecystostomy tube. Patient's LFTs are within normal limits. Patient was found to have positive C diff colitis noted on CT scan as well as with stool culture. Patient was started on IV Flagyl, p.o. vancomycin, as well as probiotic. Patient's stools have decreased, and are now formed. White blood cell count was is normal limits. Gastroenterology consultation was obtained, for which patient was taken to GI lab for upper endoscopy. Patient was already placed on PPI. Patient will now be discharged back with hospice services, with continuation of p.o. [id number] mg 4 times a day for a total of14 day course. Patient was agreeable with discharge plan. All questions answered. Physical examination General: Alert and Oriented x3. No acute distress. Cachexia Eyes: EOMI. Anicteric. HENT: Moist mucous membranes. Lungs: Clear to auscultation bilaterally. No accessory muscle use. Cardiovascular: Regular rate and rhythm. No murmur. No JVD. Abdomen: Soft, non-tender and non-distended. No palpable masses. Extremities: No edema. Non-tender. Skin: No rashes or lesions. Warm. Neurologic: No focal neurological deficits. CN II-XII grossly intact, but not individually tested. Psychiatric: Cooperative. Appropriate mood and affect. Total time spent with patient discussing and formulating plan of care: 35 minutes. This medical document was created using an electronic medical record system with [employer] dictation system. Although this document has been carefully reviewed, there may still be some phonetic and typographical errors. These areas are purely typographical due to imperfections of the software programs, and do not reflect any compromise in the patient's medical care. Consults/Reason for consult Gastroenterology: Abdominal pain, diarrhea Condition at Discharge: Fair Final Diagnosis/Problems List Sepsis secondary to C. diff colitis Secondary diagnosis: -decubitus ulcer -proctitis -cachexia -acute kidney injury -Pneumobilia -C diff colitis Discharge Disposition: Hospice - Home Discharge Instruct/Medications Diet: Regular Activity: Light activity Follow Up/Referral: Hospice provider Medications: Vancomycin 125mg po QID x 14 days Scheduled Apixaban Base (Eliquis), 5 MG PO BID Atorvastatin Calcium (Atorvastatin Calcium), 40 MG PO HS Famotidine (Famotidine), 20 MG PO EOD Vancomycin HCl (Vancomycin HCl), 125 MG PO QID Scheduled PRN Insulin Regular (Human) (Novolin R), 1-10 UNITS SC HSPRN PRN 36 Discharge Statement: "Patient was advised to return to the ER or call 911 if any headaches, dizziness, shortness of breath, chest pain, abdominal pain, bleeding, fevers, or worsening of medical condition. Patient was counseled about treatment plan, medications, possible side effects, patientverbalized understanding. All questions were answered to the best of my ability. This discharge took greater then 30 minutes in planning, reviewing documentation, counseling the patient, and discussing with other team members." ASSESSMENT ASSESSMENT Assessment Sepsis secondary to C. diff colitis Date of Service: Oct 01, 2024 Billing Provider: PORFIRIO COPELAND NP Common Visit Codes: 89203-ALT/OBS DISCH DAY >30min PORFIRIO COPELAND NP Oct 01, 2024 14:46
--- NOTE | 2024-10-01 17:11 | DVHPN2 ---
Progress Note - Dictate Date Seen: Oct 01, 2024 Medical Necessity Reason Pt with a Central, PICC or Fol: No Subjective No new complaints No nausea and vomiting, one bowel movement recorded No active GI bleeding is reported His stool for occult blood is negative Repeat hemoglobin is 11.8 Patient's stool for C diff came back positive but bacterial culture is negative Pt has started on IV Flagyl and oral vancomycin vital signs Vital Sign Date Time Temp Pulse Resp B/P (MAP) Pulse Ox O2 Delivery O2 Flow Rate FiO2 10/01/24 17:01 97.6 97 15 98/61 (73) 97 97.6 10/01/24 08:00 Room Air* 0 21 Total Intake and Output 09/30/24 09/30/24 10/01/24 15:00 23:00 07:00 Intake Total 100 ml 400 ml 150 ml Balance 100 ml 400 ml 150 ml medications Current Medications Medications Dose Ordered Sig/Aruna Route Start Time Stop Time Status Last Admin Dose Admin Ondansetron HCl 4 mg Q4HP PRN IV 09/27/24 14:00 09/29/24 06:07 4 MG Acetaminophen 650 mg Q6HP PRN PO 09/27/24 14:00 09/27/24 14:19 650 MG Metronidazole 100 ml @ 100 mls/hr Q8H IV 09/27/24 21:00 10/01/24 12:20 100 MLS/HR Atorvastatin Calcium 40 mg HS PO 09/27/24 22:00 09/30/24 21:01 40 MG Potassium Chloride/Dextrose/ Sod Cl 1,000 ml @ 75 mls/hr [id number] IV 09/28/24 12:15 10/01/24 07:09 75 MLS/HR Morphine Sulfate 1 mg Q4HPRN PRN IV 09/28/24 12:30 Acetaminophen/ Hydrocodone Bitart 1 tab Q6HPRN PRN PO 09/28/24 12:30 Acetaminophen 500 mg Q8HP PRN PO 09/28/24 12:30 Saccharomyces Boulardii 250 mg BID PO 09/28/24 22:00 09/30/24 21:02 250 MG Vancomycin HCl 250 mg QID PO 09/28/24 18:00 10/01/24 05:51 250 MG Sucralfate 1 gm BID@0600,2200 PO 09/29/24 22:00 10/01/24 05:51 1 GM Pantoprazole Sodium 40 mg BID@0600,1700 PO 09/30/24 17:00 10/01/24 05:51 40 MG objective General Appearance: Alert, Oriented X3, Cooperative, mild distress HEENT: Atraumatic, PERRLA Lungs: Clear to auscultation, Normal air movement Cardiovascular: Normal S1, Normal S2 Abdomen: Normal bowel sounds, Soft, No tenderness Genitourinary: No Apparent Abnormalities Musculoskeletal: Normal sensory function, Normal motor function Skin: Dry, Intact Psych/Mental Status: Mental status NL, Mood NL laboratory and microbiology Laboratory Tests 10/01/24 10:15 Test 10/01/24 10:15 Range/Units Serum Glucose 221 H 74-106 mg/dL Problems(with codes): (1) C. difficile diarrhea (2) Nausea & vomiting (3) Sepsis, unspecified organism Prognosis Plan Discharge planning is in progress to the snf/hospice Patient is going to be maintained on vancomycin 125 mg p.o. q.4 hours for 14 days Continue probiotics and Continue PPI Dietary Evaluation Review Comments: 1. Mechanical soft diet with Ensure HP 240ml PO BID 2. Sy BID for wound healing 3. TF Jevity 55ml/hr (73g protein 1548kcal 1065 free water)if PO intake not improving Expected Outcomes/Goals: gradualy healed wounds. weight gain Plan discussed with: Patient Is the fluid challenge complet: Yes Date of Reassessment: Sep 27, 2024 Time of Reassessment: 1200 Blood Culture Time: 1000 Time Antibiotics Given: 1100 Systolic BP: 111 Diastolic BP: 73 Blood Pressure Mean: 86 Respiration: 17 Respiratory Effort: Non-Labored Respiratory Pattern: Regular Oxygen Saturation: 95 Pulse Rate: 98 Pulse Location: Radial Pulse Strength: Normal Pulse Assessment Method: Palpation Pulse Rhythm: Regular Capillary Refill: < 3 seconds Heart Sounds: S1 & S2 Breath sounds: Clear Skin Moisture: Dry Skin Tugor: Taut Skin Color: Pale EMILY NELSON MD Oct 01, 2024 17:11
--- NOTE | 2024-10-03 23:49 | DVHINCON2 ---
Family History: Patient reports no known family medical history. Allergies: Coded Allergies: NO KNOWN ALLERGIES (Unverified , 03/28/24) Home Meds Active Scripts Vancomycin HCl (Vancomycin HCl) 125 Mg Cap, 125 MG PO QID for 14 Days, #64 CAP Prov:PORFIRIO COPELAND [employer] 10/01/24 Insulin Regular (Human) (Novolin R) 100 Unit/Ml Inj, 1-10 UNITS SC HSPRN PRN for 90 Days, #10 INJ Prov:ALLA STRINGER MD 04/21/24 Famotidine (Famotidine) 20 Mg Tab, 20 MG PO EOD for 30 Days, #30 TAB Prov:ALLA STRINGER MD 04/21/24 Atorvastatin Calcium (ATORVASTATIN CALCIUM) 20 Mg Tab, 40 MG PO HS for 90 Days, #90 TAB Hold if calf muscle pains Prov:ALLA STRINGER MD 04/21/24 Apixaban Base (ELIQUIS) 5 Mg Tab, 5 MG PO BID for 90 Days, #180 TAB Hold if internal bleeding Prov:ALLA STRINGER MD 04/21/24 Vital Signs Vital Signs Date Time Temp Pulse Resp B/P (MAP) Pulse Ox O2 Delivery O2 Flow Rate FiO2 10/01/24 17:01 97.6 97 15 98/61 (73) 97 97.6 10/01/24 08:00 Room Air* 0 21 Labs/Diagnostic Data Labs Test 10/01/24 10:15 09/30/24 05:37 09/29/24 13:56 09/28/24 02:00 Range/Units White Blood Count 10.4 4.4-10.8 10^3/uL Red Blood Count 3.69 L 4.5-5.90 10^6/uL Hemoglobin 11.8 #L 13.5-17.5 g/dL Hematocrit 34.2 #L 41.0-53.0 % Mean Corpuscular Volume 92.6 80.0-100.0 fL Mean Corpuscular Hemoglobin 31.9 28.0-32.0 pg Mean Corpuscular Hemoglobin Concent 34.4 32.0-36.0 g/dL Red Cell Distribution Width 13.9 11.8-14.3 % Platelet Count 345 140-450 10^3/uL Mean Platelet Volume 6.7 L 6.9-10.8 fL Neutrophils (%) (Auto) 72.0 37.0-80.0 % Lymphocytes (%) (Auto) 17.9 10.0-50.0 % Monocytes (%) (Auto) 8.1 0.0-12.0 % Eosinophils (%) (Auto) 1.6 0.0-7.0 % Basophils (%) (Auto) 0.4 0.0-2.0 % Neutrophils # (Auto) 7.5 1.6-8.6 10 ^3/uL Lymphocytes # (Auto) 1.9 0.4-5.4 10 ^3/uL Monocytes # (Auto) 0.8 0-1.3 10 ^3/uL Eosinophils # (Auto) 0.2 0-0.8 10 ^3/uL Basophils # (Auto) 0 0-0.2 10 ^3/uL Nucleated Red Blood Cells 0.1 % Sodium Level 141 136-145 mmol/L Potassium Level 4.3 3.5-5.1 mmol/L Chloride Level 107 98-107 mmol/L Carbon Dioxide Level 25 20-31 mmol/L Anion Gap 9 5-15 Blood Urea Nitrogen 7 #L 9-23 mg/dL Creatinine 0.50 L 0.700-1.30 mg/dL Glomerular Filtration Rate Calc 112 >90 mL/min BUN/Creatinine Ratio 14.0 10.0-20.0 Serum Glucose 221 H 74-106 mg/dL Calcium Level 8.3 L 8.7-10.4 mg/dL Urine Color Yellow Yellow Urine Clarity Clear Clear Urine pH 6.0 5.0-9.0 Urine Specific [place] 1.021 1.001-1.035 Urine Protein Negative Negative Urine Ketones Negative Negative Urine Blood Negative Negative /uL Urine Nitrite Negative Negative Urine Bilirubin Negative Negative Urine Urobilinogen Normal Negative mg/dL Urine Leukocyte Esterase Negative Negative /uL Urine RBC 1 0 - 3 /hpf Urine Microscopic WBC 2 0-3 /HPF Urine Squamous Epithelial Cells Few <5 /hpf Urine Bacteria Few H None Seen /hpf Urine Sperm Present None Seen /hpf Urine Glucose Normal Normal mg/dL Magnesium Level 1.7 1.6-2.6 mg/dL Total Bilirubin 0.4 0.2-1.0 mg/dL Aspartate Amino Transferase (AST) 17 13-40 U/L Alanine Aminotransferase (ALT) 13 7-40 U/L Alkaline Phosphatase 83 46-116 U/L Total Protein 6.4 5.7-8.2 g/dL Albumin 4.0 3.2-4.8 g/dL Test 09/27/24 14:02 09/27/24 09:55 Range/Units Stool Occult Blood Negative Negative Stool Occult Blood Sample #3 Negative Prothrombin Time 11.8 9.3-11.8 sec Prothrombin Time INR 1.13 0.9-1.15 Activated Partial Thromboplast Time 29.8 24.5-34.5 SEC Lactic Acid Level 1.3 0.4-2.0 mmol/L Microbiology Date/Time Source Procedure Growth Status 09/27/24 14:02 Stool Stool Culture - Final Complete 09/27/24 14:02 Stool Shiga Toxin I & II - Final Complete 09/27/24 14:02 Stool Clostridium difficile Toxin Assay - Final Complete 09/27/24 09:55 Blood Blood Culture - Final NO GROWTH AFTER 5 DAYS OF INCUBATION. Complete ALLA STRINGER MD Oct 03, 2024 23:49
--- NOTE | 2024-10-03 23:51 | DVHPN2 ---
Progress Note - Dictate Date Seen: Sep 28, 2024 Medical Necessity Reason Pt with a Central, PICC or Fol: No vital signs Vital Signs Vital Signs Date Time Temp Pulse Resp B/P (MAP) Pulse Ox O2 Delivery O2 Flow Rate FiO2 09/28/24 19:06 93 09/28/24 17:00 98.0 16 112/60 (77) 98 98.0 09/27/24 13:06 Room Air* 0 21 medications Current Medications Current Medications Medications (Trade) Dose Ordered Sig/Aruna Route PRN Reason Start Time Stop Time Status Last Admin Pantoprazole Sodium (Protonix) 40 mg DAILY IV 09/28/24 10:00 09/28/24 09:07 Piperacillin Sod/ Tazobactam Sod 100 ml @ 25 mls/hr Q8HR IV 09/27/24 22:00 09/28/24 14:38 DC 09/28/24 05:41 Metronidazole 100 ml @ 100 mls/hr Q8H IV 09/27/24 21:00 09/28/24 15:00 Atorvastatin Calcium (Lipitor) 40 mg HS PO 09/27/24 22:00 09/27/24 22:25 Potassium Chloride/Dextrose/ Sod Cl 1,000 ml @ 75 mls/hr [id number] IV 09/28/24 12:15 09/28/24 12:15 Morphine Sulfate 1 mg Q4HPRN PRN IV SEVERE PAIN (7-10 PAIN SCALE) 09/28/24 12:30 Acetaminophen/ Hydrocodone Bitart ([place] 5/325MG Tab) 1 tab Q6HPRN PRN PO MODERATE PAIN (4-6 PAIN SCALE) 09/28/24 12:30 Acetaminophen (Tylenol Tablet Or Capsule) 500 mg Q8HP PRN PO PAIN SCALE 1-3 OR TEMP>100.4 09/28/24 12:30 Saccharomyces Boulardii (Florastor) 250 mg BID PO 09/28/24 22:00 Vancomycin HCl (Vancomycin Hydrochloride) 250 mg QID PO 09/28/24 18:00 09/28/24 17:55 laboratory and microbiology Laboratory Tests 10/01/24 10:15 Test 10/01/24 10:15 Range/Units Serum Glucose 221 H 74-106 mg/dL Dietary Evaluation Review Comments: 1. Mechanical soft diet with Ensure HP 240ml PO BID 2. Sy BID for wound healing 3. TF Jevity 55ml/hr (73g protein 1548kcal 1065 free water)if PO intake not improving Expected Outcomes/Goals: gradualy healed wounds. weight gain Is the fluid challenge complet: Yes Date of Reassessment: Sep 27, 2024 Time of Reassessment: 1200 Blood Culture Time: 1000 Time Antibiotics Given: 1100 Systolic BP: 111 Diastolic BP: 73 Blood Pressure Mean: 86 Respiration: 17 Respiratory Effort: Non-Labored Respiratory Pattern: Regular Oxygen Saturation: 95 Pulse Rate: 98 Pulse Location: Radial Pulse Strength: Normal Pulse Assessment Method: Palpation Pulse Rhythm: Regular Capillary Refill: < 3 seconds Heart Sounds: S1 & S2 Breath sounds: Clear Skin Moisture: Dry Skin Tugor: Taut Skin Color: Pale ALLA STRINGER MD Oct 03, 2024 23:51
--- NOTE | 2024-10-03 23:54 | DVHPN2 ---
Progress Note - Dictate Date Seen: Sep 29, 2024 Medical Necessity Reason Pt with a Central, PICC or Fol: No vital signs Vitals Vital Signs Date Time Temp Pulse Resp B/P (MAP) Pulse Ox O2 Delivery O2 Flow Rate FiO2 09/29/24 09:00 83 12 97/61 (73) 96 09/29/24 08:00 Room Air* 0 21 09/28/24 23:41 98.3 98.3 Intake/Output Intake and Output 09/29/24 07:00 Intake Total 325 ml Balance 325 ml Intake IV Total 325 ml medications Objective General Appearance: Alert, Oriented X3, Cooperative, mild distress HEENT: Atraumatic, PERRLA Lungs: Clear to auscultation, Normal air movement Cardiovascular: Normal S1, Normal S2 Abdomen: Normal bowel sounds, Soft, No tenderness Genitourinary: No Apparent Abnormalities Musculoskeletal: Normal sensory function, Normal motor function Skin: Dry, Intact Psych/Mental Status: Mental status NL, Mood NL Medications Current Medications Medications Dose Ordered Sig/Aruna Route Start Time Stop Time Status Last Admin Dose Admin Ondansetron HCl 4 mg Q4HP PRN IV 09/27/24 14:00 09/29/24 06:07 4 MG Acetaminophen 650 mg Q6HP PRN PO 09/27/24 14:00 09/27/24 14:19 650 MG Pantoprazole Sodium 40 mg DAILY IV 09/28/24 10:00 09/28/24 09:07 40 MG Metronidazole 100 ml @ 100 mls/hr Q8H IV 09/27/24 21:00 09/29/24 05:03 100 MLS/HR Atorvastatin Calcium 40 mg HS PO 09/27/24 22:00 09/28/24 22:21 40 MG Potassium Chloride/Dextrose/ Sod Cl 1,000 ml @ 75 mls/hr [id number] IV 09/28/24 12:15 09/28/24 21:21 75 MLS/HR Morphine Sulfate 1 mg Q4HPRN PRN IV 09/28/24 12:30 Acetaminophen/ Hydrocodone Bitart 1 tab Q6HPRN PRN PO 09/28/24 12:30 Acetaminophen 500 mg Q8HP PRN PO 09/28/24 12:30 Saccharomyces Boulardii 250 mg BID PO 09/28/24 22:00 09/28/24 22:20 250 MG Vancomycin HCl 250 mg QID PO 09/28/24 18:00 09/28/24 22:21 250 MG laboratory and microbiology Laboratory Results Laboratory Tests 09/28/24 02:00 Microbiology Microbiology Date/Time Source Procedure Growth Status 09/27/24 14:02 Stool Stool Culture - Final Complete 09/27/24 14:02 Stool Shiga Toxin I & II - Final Complete 09/27/24 14:02 Stool Clostridium difficile Toxin Assay - Final Complete 09/27/24 09:55 Blood Blood Culture - Preliminary NO GROWTH AFTER 24 HOURS OF INCUBATION. Resulted Dietary Evaluation Review Comments: 1. Mechanical soft diet with Ensure HP 240ml PO BID 2. Sy BID for wound healing 3. TF Jevity 55ml/hr (73g protein 1548kcal 1065 free water)if PO intake not improving Expected Outcomes/Goals: gradualy healed wounds. weight gain Is the fluid challenge complet: Yes Date of Reassessment: Sep 27, 2024 Time of Reassessment: 1200 Blood Culture Time: 1000 Time Antibiotics Given: 1100 Systolic BP: 111 Diastolic BP: 73 Blood Pressure Mean: 86 Respiration: 17 Respiratory Effort: Non-Labored Respiratory Pattern: Regular Oxygen Saturation: 95 Pulse Rate: 98 Pulse Location: Radial Pulse Strength: Normal Pulse Assessment Method: Palpation Pulse Rhythm: Regular Capillary Refill: < 3 seconds Heart Sounds: S1 & S2 Breath sounds: Clear Skin Moisture: Dry Skin Tugor: Taut Skin Color: Pale ALLA STRINGER MD Oct 03, 2024 23:54
--- NOTE | 2024-10-03 23:55 | DVHPN2 ---
Progress Note - Dictate Date Seen: Sep 30, 2024 Medical Necessity Reason Pt with a Central, PICC or Fol: No vital signs Vital Signs Date Time Temp Pulse Resp B/P (MAP) Pulse Ox O2 Delivery O2 Flow Rate FiO2 09/30/24 08:00 90 09/30/24 06:00 22 129/66 (87) 98 09/29/24 21:00 98.0 98.0 09/29/24 19:30 Room Air* 0 21 Intake/Output Intake and Output 09/30/24 07:00 Intake Total 1600 ml Balance 1600 ml Intake IV Total 1600 ml medications Medications Current Medications Medications Dose Ordered Sig/Aruna Route Start Time Stop Time Status Last Admin Dose Admin Ondansetron HCl 4 mg Q4HP PRN IV 09/27/24 14:00 09/29/24 06:07 4 MG Acetaminophen 650 mg Q6HP PRN PO 09/27/24 14:00 09/27/24 14:19 650 MG Pantoprazole Sodium 40 mg DAILY IV 09/28/24 10:00 09/29/24 10:21 40 MG Metronidazole 100 ml @ 100 mls/hr Q8H IV 09/27/24 21:00 09/30/24 05:32 100 MLS/HR Atorvastatin Calcium 40 mg HS PO 09/27/24 22:00 09/29/24 21:45 40 MG Potassium Chloride/Dextrose/ Sod Cl 1,000 ml @ 75 mls/hr [id number] IV 09/28/24 12:15 09/30/24 03:00 75 MLS/HR Morphine Sulfate 1 mg Q4HPRN PRN IV 09/28/24 12:30 Acetaminophen/ Hydrocodone Bitart 1 tab Q6HPRN PRN PO 09/28/24 12:30 Acetaminophen 500 mg Q8HP PRN PO 09/28/24 12:30 Saccharomyces Boulardii 250 mg BID PO 09/28/24 22:00 09/29/24 21:45 250 MG Vancomycin HCl 250 mg QID PO 09/28/24 18:00 09/30/24 05:32 250 MG Sucralfate 1 gm BID@0600,2200 PO 09/29/24 22:00 09/30/24 05:32 1 GM Laboratory Results laboratory and microbiology Laboratory Tests 10/01/24 10:15 Test 8/13/25 10:15 Range/Units Serum Glucose 221 H 74-106 mg/dL Dietary Evaluation Review Comments: 1. Mechanical soft diet with Ensure HP 240ml PO BID 2. Sy BID for wound healing 3. TF Jevity 55ml/hr (73g protein 1548kcal 1065 free water)if PO intake not improving Expected Outcomes/Goals: gradualy healed wounds. weight gain Is the fluid challenge complet: Yes Date of Reassessment: Sep 27, 2024 Time of Reassessment: 1200 Blood Culture Time: 1000 Time Antibiotics Given: 1100 Systolic BP: 111 Diastolic BP: 73 Blood Pressure Mean: 86 Respiration: 17 Respiratory Effort: Non-Labored Respiratory Pattern: Regular Oxygen Saturation: 95 Pulse Rate: 98 Pulse Location: Radial Pulse Strength: Normal Pulse Assessment Method: Palpation Pulse Rhythm: Regular Capillary Refill: < 3 seconds Heart Sounds: S1 & S2 Breath sounds: Clear Skin Moisture: Dry Skin Tugor: Taut Skin Color: Pale ALLA STRINGER MD Oct 03, 2024 23:55
--- NOTE | 2024-10-03 23:56 | DVHPN2 ---
Progress Note - Dictate Date Seen: Oct 01, 2024 Medical Necessity Reason Pt with a Central, PICC or Fol: No vital signs Vital Sign Date Time Temp Pulse Resp B/P (MAP) Pulse Ox O2 Delivery O2 Flow Rate FiO2 10/01/24 17:01 97.6 97 15 98/61 (73) 97 97.6 10/01/24 08:00 Room Air* 0 21 laboratory and microbiology Laboratory Tests 10/01/24 10:15 Test 10/01/24 10:15 Range/Units Serum Glucose 221 H 74-106 mg/dL Dietary Evaluation Review Comments: 1. Mechanical soft diet with Ensure HP 240ml PO BID 2. Sy BID for wound healing 3. TF Jevity 55ml/hr (73g protein 1548kcal 1065 free water)if PO intake not improving Expected Outcomes/Goals: gradualy healed wounds. weight gain Is the fluid challenge complet: Yes Date of Reassessment: Sep 27, 2024 Time of Reassessment: 1200 Blood Culture Time: 1000 Time Antibiotics Given: 1100 Systolic BP: 111 Diastolic BP: 73 Blood Pressure Mean: 86 Respiration: 17 Respiratory Effort: Non-Labored Respiratory Pattern: Regular Oxygen Saturation: 95 Pulse Rate: 98 Pulse Location: Radial Pulse Strength: Normal Pulse Assessment Method: Palpation Pulse Rhythm: Regular Capillary Refill: < 3 seconds Heart Sounds: S1 & S2 Breath sounds: Clear Skin Moisture: Dry Skin Tugor: Taut Skin Color: Pale ALLA STRINGER MD Oct 03, 2024 23:56
== END 2024-10-01 17:06 | disposition hospice, home (50) | DRG 871 ==
LOC: EDBD 09:12 → ER 09:12 → OVERFLOW 13:48 → EAST 09-30 13:21 → TELE-EAST 09-30 13:39
PROVIDERS: ADMIT Nurse Practitioner Acute Care; ATTEND Nurse Practitioner Acute Care
PROC: 0DB68ZX Excision of Stomach, Via Natural or Artificial Opening Endoscopic, Diagnostic (ICD-10-PCS; 2024-09-30)
PROC: 0DB38ZX Excision of Lower Esophagus, Via Natural or Artificial Opening Endoscopic, Diagnostic (ICD-10-PCS; 2024-09-30)
PROC: 0DB98ZX Excision of Duodenum, Via Natural or Artificial Opening Endoscopic, Diagnostic (ICD-10-PCS; principal; 2024-09-30 15:05)
DX: A41.4 Sepsis due to anaerobes (principal); E43 Unspecified severe protein-calorie malnutrition; L89.153 Pressure ulcer of sacral region, stage 3; K22.11 Ulcer of esophagus with bleeding; N17.0 Acute kidney failure with tubular necrosis; R64 Cachexia; A04.72 Enterocolitis due to Clostridium difficile, not specified as recurrent; K83.09 Other cholangitis; I69.354 Hemiplegia and hemiparesis following cerebral infarction affecting left non-dominant side; L97.318 Non-pressure chronic ulcer of right ankle with other specified severity; I50.9 Heart failure, unspecified; I11.0 Hypertensive heart disease with heart failure; E11.622 Type 2 diabetes mellitus with other skin ulcer; E11.43 Type 2 diabetes mellitus with diabetic autonomic (poly)neuropathy; Z68.20 Body mass index [BMI] 20.0-20.9, adult; E87.6 Hypokalemia; K29.70 Gastritis, unspecified, without bleeding; K31.84 Gastroparesis; K62.89 Other specified diseases of anus and rectum; K59.00 Constipation, unspecified; K44.9 Diaphragmatic hernia without obstruction or gangrene; Z74.01 Bed confinement status; Z87.19 Personal history of other diseases of the digestive system; E78.5 Hyperlipidemia, unspecified
CPT/HCPCS: 36415; 43239; 71045; 74176; 76705; 80048; 80053; 81001; 82270; 83605; 83735; 85025; 85610; 85730; 86850; 86900; 86901; 86920; 87040; 87045; 87427; 87493; 93005; 96365; 96375; 99291; 99292; G0378; J2250; J2405; J2470; J2543; J3490